=== PATIENT | female | born 1970 | race American Indian/Alaskan Native ===

== ENCOUNTER 2018-09-20 14:15 | Outpatient (CLI) | payer MEDICAID, OTHER | END 2018-09-20 14:16 | disposition home or self-care (01) | LOC: LABHHL 14:15 | PROVIDERS: ATTEND Surgery | DX: N64.1 Fat necrosis of breast (principal); C49.9 Malignant neoplasm of connective and soft tissue, unspecified; D48.7 Neoplasm of uncertain behavior of other specified sites | CPT/HCPCS: 88305; 88341; 88342 ==

== ENCOUNTER 2019-01-29 09:12 | Inpatient (IN) | payer MEDICAID, OTHER ==
[~2019-01-29 09:12] MED LIST: ANCEF/STERILE WATER 2 GM/20 ML 2 GM/20 ML SYRINGE IV NR; NACL 0.9% 500 ML 500 ML IV NR
[2019-01-29] MEDS ORDERED: SUBLIMAZE IV ONE ×2 (10:46→14:01)
--- NOTE | 2019-01-29 10:46 | Anesthesia Day of Surgery ---
Anesthesia Day of Surgery - Day of Surgery Patient Examined: Yes Patient H&P Reviewed: Yes Patient is NPO: Yes
--- NOTE | 2019-01-29 10:46 | Anesthesia Consultation ---
Anesthesia Consult and Med Hx Date of service: 01/29/19 - Airway Anesthetic Teeth Evaluation: Good ROM Head & Neck: Adequate Mental/Hyoid Distance: Adequate Mallampati Class: Class II Intubation Access Assessment: Good - Pulmonary Exam CTA: Yes - Cardiac Exam Cardiac Exam: RRR - Pre-Operative Health Status ASA Pre-Surgery Classification: ASA4 Proposed Anesthetic Plan: General (Breast Cancer with erosion through anterior chest wall muscles , for GA) - Pulmonary Hx Sleep Apnea: (HIGH RISK) - Cardiovascular System Hx Hypertension: Yes (06/2017) - Central Nervous System Hx Psychiatric Problems: No - Other Systems Hx Alcohol Use: No Hx Substance Use: No Hx Cancer: Yes Hx Obesity: Yes
[2019-01-29] MEDS ORDERED: ZOFRAN IV PRN ×2 (10:47→18:59)
[2019-01-29] MEDS ORDERED: DILAUDID IV PRN (10:47)
[2019-01-29] MEDS: LACTATED RINGERS 1,000 ML IV SCH ×2 (11:30→21:34)
[2019-01-29] MEDS ORDERED: VANCOMYCIN 1,500 MG in NACL 0.9% 500 ML 500 ML IV NR (12:00)
[2019-01-29 12:45] LABS: Hematocrit 28.9 % (30.3-42.9); Hemoglobin 9.4 gm/dl (10.1-14.3)
[2019-01-29] MEDS ORDERED: SUBLIMAZE IV PRN (14:05)
--- NOTE | 2019-01-29 14:44 | Operative Report ---
Operative Report Operative Report: Operative Report: Date of Service: December 30, 2018 Preoperative diagnosis: Right breast cancer of the upper outer quadrant and bilateral breast papillomas Postoperative diagnosis: Same Procedure: Right total mastectomy with sentinel lymph node biopsy and left total mastectomy Surgeon: Marina Self M.D. Interactive Designer: Caroline Singletary M.D. Anesthesia: Gen. Findings: Right breast clips x3 present within right total mastectomy and left total mastectomy clips x3, x1 right SLN and negative for malignancy Complications: None Drains: per plastic surgery Estimated blood loss: 100-150 cc Disposition: in OR for bilateral tissue event operations manager placement by plastic surgery Indications for operative procedure: This is a 49-year-old lady with newly diagnosed right breast cancer of the upper outer quadrant IDCA grade 1 [id number] ER positive and multiple bilateral breast papillomas. Recent right stereotactic biopsy recently performed with findings of invasive carcinoma. 2 left breast and 2 right breast biopsies performed as well with findings of papillomas and breast MRI with too numerous to count bilateral breast masses probable for papillomas. She had a prior left breast excisional biopsy performed by Dr. Chatman with over 30 papillomas excised. Recommendations were to proceed with a bilateral mastectomy given right breast cancer and both breast with too numerous to count papillomas- papillomas with increase breast cancer risk. Other option of right partial mastectomy with SLNB and close surveillance was discussed as well and she wished to proceed with a bilateral mastectomy and immediate bilateral tissue event operations manager placement. She met with medical oncology and radiation oncology prior to surgery as well with recommendations of proceeding with a bilateral mastectomy. She declined genetic testing. She wished to proceed with the above procedure. Procedure in detail: Anesthesia placed bilateral pectoral muscle block prior to going to the operating room. The patient was taken to the operating room and was placed supine. Gen. anesthesia was administered. The right nipple was injected with radioisotope. Bilateral breast and axilla were prepped and draped in the normal sterile operative fashion. Timeout was performed. Typical mastectomy incision marking were made. Attention was then taken towards the left breast. A skin incision was made with a 10 blade knife and dissection taken down to the subcutaneous tissues. First began raising of the superior flap to the level of the clavicle and posteriorly to the pectoralis muscle. Then proceeded with raising of the medial flap to the level of the sternum and posteriorly to the pectoralis muscle. Followed by raisi ng of the lateral flap to the level of the latissimus dorsi muscle and taken down posteriorly. Then proceeded with raising of the inferior flap to the level of the inframammary fold taken posterior to the pectoralis muscle. The mastectomy/breast was removed from the pectoralis muscle without incident. The specimen was appropriately marked and sent to radiology with findings of 2 breast clips present and sent to pathology. Hemostasis was noted. The chest wall was irrigated and suctioned. Hemostasis was obtained. Attention was then taken towards the right breast. A gamma probe was inserted into the axilla to identify the sentinel lymph node location with uptake present. A skin incision was made with a 10 blade knife and dissection taken down to the subcutaneous tissues. First began raising of the superior flap to the level of the clavicle and posteriorly to the pectoralis muscle. Then proceeded with raising of the medial flap to the level of the sternum and posteriorly to the pectoralis muscle. Followed by raising of the lateral flap to the level of the latissimus dorsi muscle and taken down posteriorly. The gamma probe was inserted into the axilla. The axillary fascia was opened and 1 SLN was identified and then sent to pathology. All remaining counts were less than 10% of the highest count. Then proceeded with raising of the inferior flap to the level of the inframammary fold taken posterior to the pectoralis muscle. The mastectomy/breast was removed from the pectoralis muscle without incident. The specimen was appropriately marked and sent to radiology with findings of 3 breast clips present and sent to pathology. Hemostasis was noted. The chest wall was irrigated and suctioned. Hemostasis was obtained. She tolerated surgery very well and plastic surgery then proceeded with bilateral tissue event operations manager placement.
[2019-01-29] MEDS ORDERED: XYLOCAINE MPF 2% ONE (15:34)
[2019-01-29] MEDS ORDERED: ROBINUL ONE (15:34)
[2019-01-29] MEDS ORDERED: BLOXIVERZ ONE (15:34)
[2019-01-29] MEDS ORDERED: PHENYLEPHRINE/NS Syringe 1,000 MCG/10 ML IV ONE (15:34)
[2019-01-29] MEDS ORDERED: QUELICIN ONE (15:34)
[2019-01-29] MEDS ORDERED: ZEMURON IV ONE (15:34)
[2019-01-29] MEDS ORDERED: ZOFRAN ONE (15:34)
[2019-01-29] MEDS ORDERED: DECADRON ONE (15:34)
[2019-01-29] MEDS ORDERED: DILAUDID ONE ×3 (15:45→19:46)
[2019-01-29] MEDS ORDERED: XYLOCAINE 1% 20 mL ONE (16:14)
[2019-01-29] MEDS ORDERED: METHYLENE BLUE ONE (16:14)
[2019-01-29] MEDS ORDERED: MARCAINE 0.25% INFILTRATI ONE (16:14)
[2019-01-29] MEDS ORDERED: DIPRIVAN 10 MG/ML IV ONE (16:30)
[2019-01-29] MEDS ORDERED: SUBLIMAZE ONE (16:30)
[2019-01-29] MEDS ORDERED: NACL P/F VIAL (10 ML) 0 ML ONE (17:03)
[2019-01-29] MEDS ORDERED: CLORPACTIN WCS-90 IR ONE ×2 (17:03→17:51)
[2019-01-29] MEDS ORDERED: SODIUM CHLORIDE FLUSH SYRINGE 10 ML IV PRN (18:59)
[2019-01-29] MEDS ORDERED: BENADRYL PO PRN (18:59)
[2019-01-29] MEDS ORDERED: REGLAN PO PRN (18:59)
[2019-01-29] MEDS ORDERED: LACTATED RINGERS 1,000 ML IV SCH (19:00)
--- NOTE | 2019-01-29 19:25 | Operative Report ---
Operative Report Operative Report: Operative Report: Date of Service: December 30, 2018 Preoperative diagnosis: Left breast cancer of the overlapping areas-majority of entire breast Postoperative diagnosis: Same Procedure: Left toilet mastectomy Surgeon: Marina Self M.D. Assessment Services Manager: Caroline Singletary M.D. Anesthesia: Gen. Findings: Left toilet mastectomy of ulcerated breast of the nearly the entire breast; chest wall defect 30x16 cm Complications: None Drains: Wound Vac Estimated blood loss: 100 cc Disposition: in OR for Wound Vac placement by plastic surgery Indications for operative procedure: This is a 49-year-old lady with recurrent advanced Stage IV left breast cancer, [id number] triple negative. She was diagosed with left breast cancer initially and underwent neoadjuvant chemotherapy followed by left partial mastectomy and delayed adjuvant whole breast radiation in March 2018. Patient recently reoccurred with advance stage findings on physical exam with tumor nearly encompassing the entire breast. She was started on a [place] based chemotherapy with gemcitabine with advanced in her cancer. She was then started on Irbulin and recommendations for radiation therapy and she declined. Given advanced left breast skin changes of ulceration and necrosis of nearly the entire breast, recommendations were for a toilet mastectomy for pain control. She understand this was not curative. Plastics was consulted and they recommended placing a wound VAC with delayed skin graft after area has granulated well. Necrotic ulcerated breast cancer mass over 20 cm. The above was discussed at cancer conference as well with agreement of the above. She wished to proceed with the above procedure. Procedure in detail: The patient was taken to the operating room and was placed supine. Gen. anesthesia was administered. Bilateral breast and axilla were prepped and draped in the normal sterile operative fashion. Timeout was performed. Mastectomy skin markings were made to encomplass the entire breast and the immediate medial aspect of the right to the clavicle superiorly, below the IMF and laterally to the latissmus dorsi given the involvement of skin with ulceration and satellite skin lesions. Attention was then taken towards the left breast. A skin incision was made using the bovie cautery with dissection taken down to the subcutaneous tissues. First began raising of the superior flap to the level of the clavicle and posteriorly to the pectoralis muscle. Then proceeded with raising of the medial flap to the level of the sternum towards the medial aspect of the right breast and posteriorly to the pectoralis muscle. Followed by raising of the lateral flap to the level of the latissimus dorsi muscle and taken down posteriorly. Then proceeded with raising of the inferior flap to the level below the inframammary fold taken posterior immediatedly inferior to the pectoralis muscle. The mastectomy/breast was removed from the pectoralis muscle with some muslce removed en bloc with the mastectomy given adherence of tumor to the muscle. Periosteum was not visible and was covered by muscle. The muscles and tissues were noted to be edematous. Superior towards the axillary tail a fixed mass was present that was dissected from the pectoralis muscle with muscle removed as well. An enlarged left axillary lymph node was present that was resected as well. Chest wall cavity defect was 30x16 cm.The specimen was appropriately marked and sent to radiology. Chest wall was pulsavac with antibiotic solution. Hemostasis was obtained. She tolerated surgery very well and plastic surgery then proceeded with wound vac placement.
--- NOTE | 2019-01-29 19:49 | Operative Report ---
Operative Report Operative Report: Plastic Surgery Operative Note Preoperative Diagnosis: Left breast malignant neoplasm; open wound of the left chest s/p Left toilet mastectomy of ulcerated breast of the nearly the entire breast; chest wall defect 30x16 cm Postoperative Diagnosis: Same Procedure: Preparation of wound bed 30x16 cm (480 sq cm) and Application of VAC dressing Anesthesia: General endotracheal Surgeon: Dr. Sharon Merida Viscose Department Worker: None Specimens: None EBL: Minimal Indications: Patient is a 49-year-old -[place] female with history of left breast cancer that has progressed despite treatment to include the majority of skin of the left chest. She has recently been found to have lung nodule on PET scan. Due to the amount of pain she is currently in, she will undergo mastectomy with the plan for future split-thickness skin grafting to close her wound. 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 Patient understands and accepts these risks and desired to proceed with surgery Informed consent was obtained. Procedure: After review of pertinent history and physical exam, the patient was brought to the operating room and placed supine on the OR table. After induction of adequate general endotracheal anesthesia, the patient was placed in the supine position and the buttocks was prepped with Betadine and draped in the usual sterile surgical fashion. The mastectomy, which was performed by Dr. Marina Self, is dictated under a separate note. Once the mastectomy was completed a left chest defect measuring 30x 16 cm was left behind. The wound bed, which had pectoralis minor and remnants of pectoralis major as well as serratus anterior muscles exposed and viable/intact was checked for hemostasis. Pulse lavage was performed with 3 liters of saline solution. The outer edges of the defect near the inframamary fold were sutured down to decrease the inferior extent of the wound and then we began placement of the VAC dressing. 3 Medium Granufoam sponges were cut and placed in the wound bed and secured with rio. The foam was then covered with adhesive. The dressing was then placed to [facility], [place] suction, and noted to have no leaks at 125 mmHg continuous suction. Patient was then placed in a surgical bra and awakened from anesthesia after which she was transferred to a stretcher. She was then transferred to the recovery room in stable condition. Patient tolerated the procedure well. There were no complications. All sponge needle and instrument counts were correct at the end of the case.
[2019-01-29] MEDS: COLACE PO SCH (21:35)
--- NOTE | 2019-01-29 23:34 | Post Anesthesia Evaluation ---
- Post Anesthesia Evaluation Patient Participated: Yes Airway Patent: Yes Stable Respiratory Function: Yes Nausea/Vomiting: No Temp > 96.8F: Yes Pain Manageable: Yes Adequeate Hydration: Yes Anesthesia Complications: No Block Receding Appropriately: Not Applicable Patient on Ventilator: No
[2019-01-29] MEDS: PERCOCET 5/325 PO PRN (23:58)
[2019-01-30] MEDS: LACTATED RINGERS 1,000 ML IV SCH (05:50)
[2019-01-30] MEDS: PERCOCET 5/325 PO PRN ×3 (07:51→21:16)
--- NOTE | 2019-01-30 09:38 | Progress Note ---
Subjective Date of service: 01/30/19 Principal diagnosis: Open wound of the left chest s/p toilet mastectomy of ulcerated left BR CA Interval history: Surgery progress note Patient is awake out of bed in the chair eating breakfast and in good spirits. She reports being much more comfortable than preoperatively. She has some soreness, but is overall feeling good. She reports voiding spontaneously this morning, denies nausea, denies fever or chills. Pain is well controlled with by mouth medications. Afebrile vital signs stable The VAC output serosanguineous Left chest VAC dressing intact, no leaks, good seal, serosanguineous drainage collecting with minimal output. No surrounding erythema evidence of infection. No seroma or hematoma collection underneath dressing. Assessment: Postoperative day #1 status post left breast toilet mastectomy for ulcerated breast cancer, closed with vac dressing. Consultation from wound care nursing placed last night. Followed up this morning, patient to be evaluated by wound care nurse at bedside for set up for home VAC. Once home VAC is available, patient is appropriate for discharge home. She has an appointment for wound care clinic next week as well as follow-up appointment for me in office. Objective - Constitutional Vitals: Vital Signs - 12hr 01/30/19 01/30/19 01:16 04:43 Temperature 98.1 F Pulse Rate 112 H 104 H Respiratory 20 Rate Blood Pressure 93/60 114/65 O2 Sat by Pulse 97 98 Oximetry - Labs CBC & Chem 7: 01/29/19 11:25 Labs: Abnormal lab results 01/29/19 01/29/19 Range/Units 11:25 11:25 Hgb 9.4 L (10.1-14.3) gm/dl Hct 28.9 L (30.3-42.9) % Crossmatch See Detail Medications & Allergies - Medications Allergies/Adverse Reactions: Allergies aspirin Adverse Reaction (Verified 01/28/19 12:25) GI Upset Home Medications: Home Medications Medication Instructions Recorded Confirmed Last Taken Type Cholecalciferol Vit D3 [Vitamin D3 1,000 unit PO QDAY 01/27/19 01/27/19 01/28/19 12:00 History 1,000 UNIT TAB] Clindamycin [Clindamycin CAP] 300 mg PO Q8H 01/27/19 01/27/19 01/28/19 12:00 History Cyanocobalamin [Vitamin B-12] 1,000 mcg PO DAILY 01/27/19 01/27/19 01/28/19 12:00 History HYDROcodone/APAP 10-325 [[place] 1 tab PO TID PRN 01/27/19 01/27/19 01/29/19 08:00 History 10-325 mg TAB] Ibuprofen [Motrin] 800 mg PO Q8HR PRN 01/27/19 01/27/19 Unknown History Iron [Iron 18 MG TAB] 18 mg PO Q48H 01/27/19 01/27/19 01/28/19 12:00 History Multivitamin/Iron/Folic Acid 1 each PO DAILY 01/27/19 01/27/19 01/28/19 12:00 History [Centrum Adults Tablet] amLODIPine [Norvasc] 5 mg PO DAILY 01/27/19 01/27/19 01/29/19 08:00 History Active Medications: Generic Name Dose Route Start Last Admin Trade Name Freq PRN Reason Stop Dose Admin Acetaminophen 650 mg 01/29/19 18:59 Tylenol PO Q6H PRN Pain MILD(1-3)/Fever >100.5/RAMACHANDRAN Diphenhydramine HCl 25 mg 01/29/19 18:59 Benadryl PO Q8H PRN Itching Docusate Sodium 100 mg 01/29/19 22:00 01/29/19 21:35 Colace PO 100 mg BID MANISH Administration Enoxaparin Sodium 40 mg 01/30/19 10:00 Lovenox SUB-Q QDAY MANISH Fentanyl 100 mcg 01/29/19 14:05 Sublimaze IV ONCE PRN Chest Pain unrelieved by NTG Lactated Ringer's 1,000 mls @ 100 mls/hr 01/29/19 11:00 01/30/19 05:50 Lactated Ringers IV 100 mls/hr DIRECT MANISH Administration Lactated Ringer's 1,000 mls @ 125 mls/hr 01/29/19 19:00 Lactated Ringers IV DIRECT MANISH Metoclopramide HCl 10 mg 01/29/19 18:59 Reglan PO Q6H PRN Nausea And Vomiting Morphine Sulfate 2 mg 01/29/19 19:03 Morphine IV Q4H PRN Pain, Moderate (4-6) Ondansetron HCl 4 mg 01/29/19 10:47 Zofran IV ONCE PRN Nausea And Vomiting Ondansetron HCl 4 mg 01/29/19 18:59 Zofran IV Q8H PRN N/V unrelieved by Sherry Oxycodone/Acetaminophen 2 tab 01/29/19 18:59 01/30/19 07:51 Percocet 5/325 PO 2 tab Q6H PRN Administration Pain, Moderate (4-6) Sodium Chloride 10 ml 01/29/19 18:59 Sodium Chloride Flush Syringe 10 Ml IV PRN PRN LINE FLUSH
[2019-01-30] MEDS: TYLENOL PO PRN (10:40)
[2019-01-30] MEDS: COLACE PO SCH ×2 (10:40→21:15)
[2019-01-30] MEDS: LOVENOX SUB-Q SCH (10:42)
[2019-01-31] MEDS: PERCOCET 5/325 PO PRN ×4 (03:05→22:39)
[2019-01-31] MEDS: LOVENOX SUB-Q SCH (10:33)
[2019-01-31] MEDS: COLACE PO SCH (10:33)
[2019-02-01] MEDS: PERCOCET 5/325 PO PRN ×3 (04:25→19:35)
[2019-02-01] MEDS: MORPHINE IV PRN (09:08)
[2019-02-01] MEDS: LOVENOX SUB-Q SCH (10:32)
[2019-02-01] MEDS: COLACE PO SCH ×2 (10:32→19:36)
--- NOTE | 2019-02-01 15:03 | Progress Note ---
Subjective Date of service: 02/01/19 Principal diagnosis: Open wound of the left chest s/p toilet mastectomy of ulcerated left BR CA Interval history: Plastic Surgery Progress Note Patient doing well, POD #3. She denies fever, chills, cp, sob. Her pain is controlled with the medications she has ordered. Her only concern is that she has not yet had a bowel movement. Denies n/v. Her brought her some grapes and bananas to eat but she has not had them yet. Overall in good spirits . AFVSS Left chest VAC intact to suction, serosanguinous output. No evidence of infection or fluid collection, good seal. Plan: 1. Will add Colace TID to encourage BM. Patient encouraged to drink more water and eat the fruits her brought. She was also advised to ambulate more as this will help with bowel motility. If no BM after these measures, administer Magnesium Citrate. 2. Case mgmt: Home VAC approval pending. Discharge held for home VAC approval. 3. WOC Nursing: VAC dressing change at bedside w or Sunday. Objective - Constitutional Vitals: Vital Signs - 12hr 02/01/19 02/01/19 02/01/19 04:00 04:25 07:55 Temperature 99.3 F 99.0 F Pulse Rate 70 110 H Respiratory 18 18 18 Rate Blood Pressure 145/77 Blood Pressure 118/74 [Right] O2 Sat by Pulse 97 Oximetry 02/01/19 02/01/19 12:59 13:34 Temperature 98.9 F Pulse Rate 127 H Respiratory 18 18 Rate Blood Pressure 131/83 Blood Pressure [Right] O2 Sat by Pulse 94 Oximetry - Labs CBC & Chem 7: 01/29/19 11:25 Medications & Allergies - Medications Allergies/Adverse Reactions: Allergies aspirin Adverse Reaction (Verified 01/28/19 12:25) GI Upset Home Medications: Home Medications Medication Instructions Recorded Confirmed Last Taken Type Cholecalciferol Vit D3 [Vitamin D3 1,000 unit PO QDAY 01/27/19 01/27/19 01/28/19 12:00 History 1,000 UNIT TAB] Clindamycin [Clindamycin CAP] 300 mg PO Q8H 01/27/19 01/27/19 01/28/19 12:00 History Cyanocobalamin [Vitamin B-12] 1,000 mcg PO DAILY 01/27/19 01/27/19 01/28/19 12:00 History HYDROcodone/APAP 10-325 [[place] 1 tab PO TID PRN 01/27/19 01/27/19 01/29/19 08:00 History 10-325 mg TAB] Ibuprofen [Motrin] 800 mg PO Q8HR PRN 01/27/19 01/27/19 Unknown History Iron [Iron 18 MG TAB] 18 mg PO Q48H 01/27/19 01/27/19 01/28/19 12:00 History Multivitamin/Iron/Folic Acid 1 each PO DAILY 01/27/19 01/27/19 01/28/19 12:00 History [Centrum Adults Tablet] amLODIPine [Norvasc] 5 mg PO DAILY 01/27/19 01/27/19 01/29/19 08:00 History Active Medications: Generic Name Dose Route Start Last Admin Trade Name Freq PRN Reason Stop Dose Admin Acetaminophen 650 mg 01/29/19 18:59 01/30/19 10:40 Tylenol PO 650 mg Q6H PRN Administration Pain MILD(1-3)/Fever >100.5/RAMACHANDRAN Diphenhydramine HCl 25 mg 01/29/19 18:59 Benadryl PO Q8H PRN Itching Docusate Sodium 100 mg 01/29/19 22:00 02/01/19 10:32 Colace PO 100 mg BID MANISH Administration Enoxaparin Sodium 40 mg 01/30/19 10:00 02/01/19 10:32 Lovenox SUB-Q 40 mg QDAY MANISH Administration Fentanyl 100 mcg 01/29/19 14:05 Sublimaze IV ONCE PRN Chest Pain unrelieved by NTG Lactated Ringer's 1,000 mls @ 125 mls/hr 01/29/19 19:00 Lactated Ringers IV DIRECT MANISH Metoclopramide HCl 10 mg 01/29/19 18:59 Reglan PO Q6H PRN Nausea And Vomiting Morphine Sulfate 2 mg 01/29/19 19:03 02/01/19 09:08 Morphine IV 2 mg Q4H PRN Administration Pain, Moderate (4-6) Ondansetron HCl 4 mg 01/29/19 18:59 Zofran IV Q8H PRN N/V unrelieved by Reglan Oxycodone/Acetaminophen 2 tab 01/29/19 18:59 02/01/19 13:34 Percocet 5/325 PO 2 tab Q6H PRN Administration Pain, Moderate (4-6) Sodium Chloride 10 ml 01/29/19 18:59 Sodium Chloride Flush Syringe 10 Ml IV PRN PRN LINE FLUSH
[2019-02-01] MEDS ORDERED: CITRATE OF MAGNESIA PO PRN (15:07)
[2019-02-02] MEDS: PERCOCET 5/325 PO PRN ×4 (01:22→20:45)
[2019-02-02 09:17] LABS: Basophils # (Auto) 0.1 K/mm3 (0.0-0.1); Basophils % (Auto) 0.4 % (0.0-1.8); Eosinophils # (Auto) 0.1 K/mm3 (0.0-0.4); Eosinophils % (Auto) 0.4 % (0.0-4.3); Hematocrit 26.6 % (30.3-42.9); Hemoglobin 8.6 gm/dl (10.1-14.3); Lymphocytes # (Auto) 1.3 K/mm3 (1.2-5.4); Lymphocytes % (Auto) 10.2 % (13.4-35.0); Mean Corpuscular HGB Conc 32 % (30-34); Mean Corpuscular Volume 85 fl (79-97); Monocytes # (Auto) 1.5 K/mm3 (0.0-0.8); Monocytes % (Auto) 11.6 % (0.0-7.3); Platelet Count 557 K/mm3 (140-440); Red Blood Count 3.14 M/mm3 (3.65-5.03)
[2019-02-02 09:18] LABS: Red Cell Distribution Width 21.9 % (13.2-15.2)
[2019-02-02 09:31] LABS: BUN/Creatinine Ratio 20; Blood Urea Nitrogen 10 mg/dL (7-17); Calcium 8.7 mg/dL (8.4-10.2); Hemolysis Index 0
[2019-02-02 09:36] LABS: Creatine Kinase MB 1.2 ng/mL (0.0-4.0)
[2019-02-02] MEDS: COLACE PO SCH ×3 (09:39→20:44)
[2019-02-02] MEDS: LOVENOX SUB-Q SCH (09:39)
[2019-02-02] MEDS: NORVASC PO SCH (09:39)
--- NOTE | 2019-02-02 09:45 | Vascular Lab Report ---
DUPLEX DOPPLER LOWER EXTREMITY VEINS, BILATERAL INDICATION / CLINICAL INFORMATION: rule out DVT. Breast cancer. TECHNIQUE: Duplex doppler imaging was performed through the veins of both lower extremities using venous neo lupe and other maneuvers. COMPARISON: None available. FINDINGS: RIGHT COMMON FEMORAL VEIN: Negative. RIGHT FEMORAL VEIN: Negative. RIGHT POPLITEAL VEIN: Negative. RIGHT CALF VEINS: Negative. LEFT COMMON FEMORAL VEIN: Negative. LEFT FEMORAL VEIN: Negative. LEFT POPLITEAL VEIN: Negative. LEFT CALF VEINS: Negative. ADDITIONAL FINDINGS: None. IMPRESSION: 1. No sonographic evidence for DVT in either lower extremity. Signer Name: Rosanna Eason MD Signed: 02/02/2019 9:41 AM Workstation Name: [id number]
[2019-02-02] MEDS ORDERED: MAGNESIUM SULFATE 2GM/50ML 2 GM/50 ML BAG IV ONE ×2 (12:26→18:48)
--- NOTE | 2019-02-02 12:35 | Progress Note ---
Assessment and Plan This is a 49 year old lady with Stage IV left breast cancer, POD #4 left toilet mastectomy for chest wall/breast extensive necrosis with ulceration with mastectomy performed of 30x16 cm and wound vac placed. 1. Patient with tachycardia this morning, cardiac enzymes obtained and negative, CBC stable and minimal blood loss of less than 100 cc during surgery, EKG with sinus tachycardia, bilateral lower ext ultrasound negative for DVT and Chem 9 with low magnesium and IV replacement ordered. Personally consulted Dr. Arriaga this afternoon for evaluation-->will await recommendations and thank you. 2. Left chest wall wound vac in place and will have changed tomorrow by wound care. Patient awaiting home wound vac for delivery by her insurance, d/c planning for tomorrow. 3. OOB to hallway. 4. Patient eating well and no PO concerns. 5. Resumed home meds today. Subjective Date of service: 02/02/19 Principal diagnosis: Open wound of the left chest s/p toilet mastectomy of ulcerated left BR CA Interval history: No acute events overnight. Patient awaiting wound vac insurance approval. Objective - Constitutional Vitals: Vital Signs - 12hr 02/02/19 02/02/19 02/02/19 01:22 05:02 07:43 Temperature 98.9 F 99.5 F Pulse Rate 120 H 124 H Pulse Rate [ Apical] Respiratory 18 18 18 Rate Blood Pressure 110/62 Blood Pressure 134/78 [Right] O2 Sat by Pulse 95 Oximetry 02/02/19 02/02/19 02/02/19 08:05 09:39 10:32 Temperature Pulse Rate 120 H Pulse Rate [ 122 H Apical] Respiratory 18 Rate Blood Pressure 160/94 Blood Pressure [Right] O2 Sat by Pulse Oximetry 02/02/19 10:34 Temperature Pulse Rate 122 H Pulse Rate [ Apical] Respiratory Rate Blood Pressure Blood Pressure [Right] O2 Sat by Pulse 95 Oximetry General appearance: Present: no acute distress - EENT Eyes: PERRL, EOM intact ENT: hearing intact, clear oral mucosa Ears: bilateral: normal - Neck Neck: supple, normal ROM - Respiratory Respiratory effort: normal Respiratory: bilateral: CTA - Breasts Breasts: other (left wound vac in place to suction) - Cardiovascular Rhythm: regular Extremities: no ischemia, pulses intact, pulses symmetrical, No edema, normal temperature, normal color, Full ROM - Gastrointestinal General gastrointestinal: Present: soft, non-tender, non-distended Rectal Exam: deferred - Genitourinary Female genitourinary: deferred - Integumentary Integumentary: clear, warm, dry - Musculoskeletal Musculoskeletal: strength equal bilaterally - Neurologic Neurologic: CNII-XII intact, moves all extremities - Psychiatric Psychiatric: appropriate mood/affect, intact judgment & insight, memory intact, cooperative - Labs CBC & Chem 7: 02/02/19 08:48 02/02/19 08:48 Labs: Abnormal lab results 01/29/19 02/02/19 02/02/19 Range/Units 11:25 08:48 08:48 WBC 12.9 H (4.5-11.0) K/mm3 RBC 3.14 L (3.65-5.03) M/mm3 Hgb 8.6 L (10.1-14.3) gm/dl Hct 26.6 L (30.3-42.9) % MCH 27 L (28-32) pg RDW 21.9 H (13.2-15.2) % Plt Count 557 H (140-440) K/mm3 Lymph % (Auto) 10.2 L (13.4-35.0) % [place] % (Auto) 11.6 H (0.0-7.3) % [place] # 1.5 H (0.0-0.8) K/mm3 Seg Neutrophils % 77.4 H (40.0-70.0) % Seg Neutrophils # 10.0 H (1.8-7.7) K/mm3 Creatinine 0.5 L (0.7-1.2) mg/dL Glucose 137 H (65-100) mg/dL Magnesium (1.7-2.3) mg/dL Crossmatch See Detail 02/02/19 Range/Units 08:48 WBC (4.5-11.0) K/mm3 RBC (3.65-5.03) M/mm3 Hgb (10.1-14.3) gm/dl Hct (30.3-42.9) % MCH (28-32) pg RDW (13.2-15.2) % Plt Count (140-440) K/mm3 Lymph % (Auto) (13.4-35.0) % [place] % (Auto) (0.0-7.3) % [place] # (0.0-0.8) K/mm3 Seg Neutrophils % (40.0-70.0) % Seg Neutrophils # (1.8-7.7) K/mm3 Creatinine (0.7-1.2) mg/dL Glucose (65-100) mg/dL Magnesium 0.20 L* (1.7-2.3) mg/dL Crossmatch Medications & Allergies - Medications Allergies/Adverse Reactions: Allergies aspirin Adverse Reaction (Verified 01/28/19 12:25) GI Upset Home Medications: Home Medications Medication Instructions Recorded Confirmed Last Taken Type Cholecalciferol Vit D3 [Vitamin D3 1,000 unit PO QDAY 01/27/19 01/27/19 01/28/19 12:00 History 1,000 UNIT TAB] Clindamycin [Clindamycin CAP] 300 mg PO Q8H 01/27/19 01/27/19 01/28/19 12:00 History Cyanocobalamin [Vitamin B-12] 1,000 mcg PO DAILY 01/27/19 01/27/19 01/28/19 12:00 History HYDROcodone/APAP 10-325 [[place] 1 tab PO TID PRN 01/27/19 01/27/19 01/29/19 08:00 History 10-325 mg TAB] Ibuprofen [Motrin] 800 mg PO Q8HR PRN 01/27/19 01/27/19 Unknown History Iron [Iron 18 MG TAB] 18 mg PO Q48H 01/27/19 01/27/19 01/28/19 12:00 History Multivitamin/Iron/Folic Acid 1 each PO DAILY 01/27/19 01/27/19 01/28/19 12:00 History [Centrum Adults Tablet] amLODIPine [Norvasc] 5 mg PO DAILY 01/27/19 01/27/19 01/29/19 08:00 History Active Medications: Generic Name Dose Route Start Last Admin Trade Name Freq PRN Reason Stop Dose Admin Acetaminophen 650 mg 01/29/19 18:59 01/30/19 10:40 Tylenol PO 650 mg Q6H PRN Administration Pain MILD(1-3)/Fever >100.5/RAMACHANDRAN Amlodipine Besylate 5 mg 02/02/19 10:00 02/02/19 09:39 Norvasc PO 5 mg QDAY MANISH Administration Diphenhydramine HCl 25 mg 01/29/19 18:59 Benadryl PO Q8H PRN Itching Docusate Sodium 100 mg 02/01/19 20:00 02/02/19 09:39 Colace PO 100 mg TID MANISH Administration Enoxaparin Sodium 40 mg 01/30/19 10:00 02/02/19 09:39 Lovenox SUB-Q 40 mg QDAY MANISH Administration Fentanyl 100 mcg 01/29/19 14:05 Sublimaze IV ONCE PRN Chest Pain unrelieved by NTG Lactated Ringer's 1,000 mls @ 125 mls/hr 01/29/19 19:00 Lactated Ringers IV DIRECT MANISH Magnesium Sulfate 2 gm in 50 mls @ 25 mls/hr 02/02/19 12:26 Magnesium Sulfate 2gm/50ml IV 02/02/19 14:25 ONCE ONE Magnesium Citrate 300 ml 02/01/19 15:07 Citrate Of Magnesia PO QDAY PRN Bowel Movement Metoclopramide HCl 10 mg 01/29/19 18:59 Reglan PO Q6H PRN Nausea And Vomiting Morphine Sulfate 2 mg 01/29/19 19:03 02/01/19 09:08 Morphine IV 2 mg Q4H PRN Administration Pain, Moderate (4-6) Ondansetron HCl 4 mg 01/29/19 18:59 Zofran IV Q8H PRN N/V unrelieved by Reglan Oxycodone/Acetaminophen 2 tab 01/29/19 18:59 02/02/19 01:22 Percocet 5/325 PO 2 tab Q6H PRN Administration Pain, Moderate (4-6) Oxycodone/Acetaminophen 2 tab 02/02/19 07:56 02/02/19 09:38 Percocet 5/325 PO 2 tab Q4H PRN Administration Pain, Moderate (4-6) Sodium Chloride 10 ml 01/29/19 18:59 Sodium Chloride Flush Syringe 10 Ml IV PRN PRN LINE FLUSH
[2019-02-02] MEDS ORDERED: MAG-OX PO ONE ×2 (13:00)
[2019-02-02] MEDS ORDERED: NACL 0.9% 1000 ML 1,000 ML ONE (15:14)
[2019-02-02] MEDS: TYLENOL PO PRN (18:08)
[2019-02-02] MEDS ORDERED: NACL 0.9% 1000 ML 1,000 ML IV ONE (18:49)
[2019-02-02] MEDS ORDERED: NACL 0.9% 1000 ML 1,000 ML IV SCH (19:00)
[2019-02-02 20:12] LABS: Basophils # (Auto) 0.1 K/mm3 (0.0-0.1); Basophils % (Auto) 0.7 % (0.0-1.8); Eosinophils # (Auto) 0.1 K/mm3 (0.0-0.4); Eosinophils % (Auto) 0.5 % (0.0-4.3); Hematocrit 24.8 % (30.3-42.9); Lymphocytes # (Auto) 1.4 K/mm3 (1.2-5.4); Lymphocytes % (Auto) 11.7 % (13.4-35.0); Mean Corpuscular HGB Conc 32 % (30-34); Mean Corpuscular Volume 85 fl (79-97); Monocytes # (Auto) 1.8 K/mm3 (0.0-0.8); Monocytes % (Auto) 14.9 % (0.0-7.3); Platelet Count 530 K/mm3 (140-440); Red Blood Count 2.93 M/mm3 (3.65-5.03)
[2019-02-02 20:13] LABS: Red Cell Distribution Width 21.9 % (13.2-15.2)
[2019-02-02 20:30] LABS: Alanine Aminotransferase 18 units/L (7-56); Albumin 2.1 g/dL (3.9-5); BUN/Creatinine Ratio 18; Blood Urea Nitrogen 11 mg/dL (7-17); Calcium 8.1 mg/dL (8.4-10.2); Hemolysis Index 1
--- NOTE | 2019-02-02 23:20 | Cat Scan Report ---
CT angio chest INDICATION / CLINICAL INFORMATION: Dyspnea. TECHNIQUE: Precontrast bolus timing images were obtained followed by postcontrast axial and reformatted images. 3-plane MIP reconstructions were performed at an independent workstation by the technologist. All CT scans at this location are performed using CT dose reduction for ALARA by means of automated exposure control. COMPARISON: None available. FINDINGS: Pulmonary arterial enhancement is normal, no evidence of pulmonary embolus. There is a large left and small right pleural effusion. Compressive atelectasis of the left lower lob e is noted. Diffuse pulmonary nodularity is consistent with metastatic disease. No superimposed airspace consolidation. Post left mastectomy changes. There are enlarged right axillary and left internal mammary Limited upper abdominal images show normal adrenal glands and cholelithiasis. There are sclerotic changes of the sternum. Hypertrophic ventral spurring is seen in multiple lower thoracic vertebral bodies. Lymph nodes. IMPRESSION: 1. No evidence of acute pulmonary embolism. 2. Bilateral pleural effusions larger on the left. 3. Post left mastectomy with pulmonary metastatic disease, right axillary and left internal mammary a denopathy. 4. Cholelithiasis. Signer Name: Abimael Mcgowan MD Signed: 02/02/2019 11:15 PM Workstation Name: [id number]
[2019-02-03] MEDS: PERCOCET 5/325 PO PRN ×5 (04:22→19:23)
--- NOTE | 2019-02-03 07:35 | Consultation ---
History of Present Illness - Reason for Consult Consult date: 02/02/19 Tachycardia and Dyspnea Requesting physician: MALLIKA HANNA - History of Present Illness S/p -- Left toilet mastectomy of ulcerated breast of the nearly the entire breast; chest wall defect 30x16 cm with wound vac in place has some dyspnea more than usual.C/o dressing being too tight.No recent travel . Past History Past Medical History: cancer (Breast) Past Surgical History: mastectomy (L mastectomy), Other Social history: lives with family, full code Family history: hypertension Medications and Allergies Allergies Allergy/AdvReac Type Severity Reaction Status Date / Time aspirin AdvReac GI Upset Verified 01/28/19 12:25 Home Medications Medication Instructions Recorded Confirmed Last Taken Type Cholecalciferol Vit D3 [Vitamin D3 1,000 unit PO QDAY 01/27/19 01/27/19 01/28/19 12:00 History 1,000 UNIT TAB] Clindamycin [Clindamycin CAP] 300 mg PO Q8H 01/27/19 01/27/19 01/28/19 12:00 History Cyanocobalamin [Vitamin B-12] 1,000 mcg PO DAILY 01/27/19 01/27/19 01/28/19 12:00 History HYDROcodone/APAP 10-325 [[place] 1 tab PO TID PRN 01/27/19 01/27/19 01/29/19 08:00 History 10-325 mg TAB] Ibuprofen [Motrin] 800 mg PO Q8HR PRN 01/27/19 01/27/19 Unknown History Iron [Iron 18 MG TAB] 18 mg PO Q48H 01/27/19 01/27/19 01/28/19 12:00 History Multivitamin/Iron/Folic Acid 1 each PO DAILY 01/27/19 01/27/19 01/28/19 12:00 History [Centrum Adults Tablet] amLODIPine [Norvasc] 5 mg PO DAILY 01/27/19 01/27/19 01/29/19 08:00 History Active Meds: Active Medications Acetaminophen (Tylenol) 650 mg PO Q6H PRN PRN Reason: Pain MILD(1-3)/Fever >100.5/RAMACHANDRAN Last Admin: 02/02/19 18:08 Dose: 650 mg Documented by: Amlodipine Besylate (Norvasc) 5 mg PO QDAY [facility] Last Admin: 10/13/19 09:39 Dose: 5 mg Documented by: Diphenhydramine HCl (Benadryl) 25 mg PO Q8H PRN PRN Reason: Itching Docusate Sodium (Colace) 100 mg PO TID [facility] Last Admin: 02/02/19 20:44 Dose: 100 mg Documented by: Enoxaparin Sodium (Lovenox) 40 mg SUB-Q QDAY [facility] Last Admin: 02/02/19 09:39 Dose: 40 mg Documented by: Fentanyl (Sublimaze) 100 mcg IV ONCE PRN PRN Reason: Chest Pain unrelieved by NTG Lactated Ringer's (Lactated Ringers) 1,000 mls @ 125 mls/hr IV DIRECT [facility] Sodium Chloride (Nacl 0.9% 1000 Ml) 1,000 mls @ 75 mls/hr IV DIRECT [facility] Magnesium Citrate (Citrate Of Magnesia) 300 ml PO QDAY PRN PRN Reason: Bowel Movement Metoclopramide HCl (Reglan) 10 mg PO Q6H PRN PRN Reason: Nausea And Vomiting Morphine Sulfate (Morphine) 2 mg IV Q4H PRN PRN Reason: Pain, Moderate (4-6) Last Admin: 02/01/19 09:08 Dose: 2 mg Documented by: Ondansetron HCl (Zofran) 4 mg IV Q8H PRN PRN Reason: N/V unrelieved by Reglan Oxycodone/Acetaminophen (Percocet 5/325) 2 tab PO Q4H PRN PRN Reason: Pain, Moderate (4-6) Last Admin: 02/03/19 04:22 Dose: 2 tab Documented by: Sodium Chloride (Sodium Chloride Flush Syringe 10 Ml) 10 ml IV PRN PRN PRN Reason: LINE FLUSH Review of Systems All systems: negative Cardiovascular: shortness of breath Respiratory: shortness of breath, pain on inspiration Exam - Constitutional Vitals: Temp Pulse Resp BP Pulse Ox 99.2 F 115 H 18 110/63 92 02/03/19 04:38 02/03/19 04:38 02/03/19 05:20 02/03/19 04:38 02/03/19 04:38 General appearance: Present: no acute distress, well-nourished - EENT Eyes: Present: PERRL ENT: hearing intact, clear oral mucosa - Neck Neck: Present: supple, normal ROM - Respiratory Respiratory effort: normal Respiratory: bilateral: CTA - Cardiovascular Heart rate: 120 Rhythm: regular Heart Sounds: Present: S1 & S2. Absent: rub, click - Extremities Extremities: no ischemia, pulses symmetrical, No edema Peripheral Pulses: within normal limits - Abdominal General gastrointestinal: Present: soft, non-tender, non-distended, normal bowel sounds Female genitourinary: Present: normal - Rectal Rectal Exam: deferred - Integumentary Integumentary: Present: clear, warm, dry - Musculoskeletal Musculoskeletal: gait normal, strength equal bilaterally - Psychiatric Psychiatric: appropriate mood/affect, intact judgment & insight - Neurologic Neurologic: CNII-XII intact, moves all extremities - Allied Health Allied health notes reviewed: nursing, case management Results - Labs CBC & Chem 7: 02/02/19 19:56 02/02/19 19:56 Labs: Abnormal lab results 01/29/19 02/02/19 02/02/19 Range/Units 11:25 08:48 08:48 WBC 12.9 H (4.5-11.0) K/mm3 RBC 3.14 L (3.65-5.03) M/mm3 Hgb 8.6 L (10.1-14.3) gm/dl Hct 26.6 L (30.3-42.9) % MCH 27 L (28-32) pg RDW 21.9 H (13.2-15.2) % Plt Count 557 H (140-440) K/mm3 Lymph % (Auto) 10.2 L (13.4-35.0) % [place] % (Auto) 11.6 H (0.0-7.3) % [place] # 1.5 H (0.0-0.8) K/mm3 Seg Neutrophils % 77.4 H (40.0-70.0) % Seg Neutrophils # 10.0 H (1.8-7.7) K/mm3 Creatinine 0.5 L (0.7-1.2) mg/dL Glucose 137 H (65-100) mg/dL Calcium (8.4-10.2) mg/dL Magnesium (1.7-2.3) mg/dL Albumin (3.9-5) g/dL Crossmatch See Detail 10/02/02/19 02/02/19 Range/Units 08:48 19:56 19:56 WBC 11.8 H (4.5-11.0) K/mm3 RBC 2.93 L (3.65-5.03) M/mm3 Hgb 8.0 L (10.1-14.3) gm/dl Hct 24.8 L (30.3-42.9) % MCH 27 L (28-32) pg RDW 21.9 H (13.2-15.2) % Plt Count 530 H (140-440) K/mm3 Lymph % (Auto) 11.7 L (13.4-35.0) % [place] % (Auto) 14.9 H (0.0-7.3) % [place] # 1.8 H (0.0-0.8) K/mm3 Seg Neutrophils % 72.2 H (40.0-70.0) % Seg Neutrophils # 8.6 H (1.8-7.7) K/mm3 Creatinine 0.6 L (0.7-1.2) mg/dL Glucose 104 H (65-100) mg/dL Calcium 8.1 L (8.4-10.2) mg/dL Magnesium 0.20 L* (1.7-2.3) mg/dL Albumin 2.1 L (3.9-5) g/dL Crossmatch CTA Chest IMPRESSION: 1. No evidence of acute pulmonary embolism. 2. Bilateral pleural effusions larger on the left. 3. Post left mastectomy with pulmonary metastatic disease, right axillary and left internal mammary adenopathy. 4. Cholelithiasis. - Imaging and Cardiology CT scan - chest: report reviewed (No PE,Gage pleural effusions) Assessment and Plan - Patient Problems (1) Pleural effusion Current Visit: Yes Status: Acute Plan to address problem: Reactive Pulmonary consult requested No PE
[2019-02-03] MEDS: COLACE PO SCH ×3 (08:09→19:23)
--- NOTE | 2019-02-03 10:17 | Progress Note ---
Assessment and Plan This is a 49 year old lady with Stage IV left breast cancer, POD #5 left toilet mastectomy for chest wall/breast extensive necrosis with ulceration with mastectomy performed of 30x16 cm and wound vac placed. 1. Patient with stable tachycardia and all workup negative, cardiac enzymes obtained and negative, CBC with H/H stable and minimal blood loss of less than 100 cc during surgery adn WBC of 12, EKG with sinus tachycardia, bilateral lower ext ultrasound negative for DVT and Chem 9 with low magnesium and undergoing replacement. Personally consulted Dr. Arriaga yesterday afternoon for evaluation and he recommended CT angio to rule out PE and findings negative for PE but left greater than right pleural effusion. Dr. Arriaga has consulted ICU for evaluation given left pleural effusion-will await recommendations, patient on room air. Wesley zarate will need cardiology appt at discharge per consult. 2. Left chest wall wound vac in place and will be changed today by wound care. Patient awaiting home wound vac for delivery by her insurance, d/c planning once the above resolved. 3. OOB to hallway. 4. Patient eating well and no PO concerns. 5. Resumed home meds yesterday. 6. Labs from this am pending. Subjective Date of service: 02/03/19 Principal diagnosis: Open wound of the left chest s/p toilet mastectomy of ulcerated left BR CA Interval history: No acute events overnight. Patient awaiting wound vac insurance approval. Objective - Constitutional Vitals: Vital Signs - 12hr 02/02/19 02/03/19 02/03/19 23:04 04:22 04:38 Temperature 99.2 F 99.2 F Pulse Rate 114 H 115 H Respiratory 20 18 20 Rate Respiratory 18 Rate [Left Chest] Blood Pressure 125/72 110/63 Blood Pressure [Right] O2 Sat by Pulse 100 92 Oximetry 02/03/19 02/03/19 05:20 07:10 Temperature 99.6 F Pulse Rate 115 H Respiratory 18 Rate Respiratory 18 Rate [Left Chest] Blood Pressure Blood Pressure 110/68 [Right] O2 Sat by Pulse Oximetry General appearance: Present: no acute distress - EENT Eyes: PERRL, EOM intact ENT: hearing intact, clear oral mucosa Ears: bilateral: normal - Neck Neck: supple - Respiratory Respiratory effort: normal Respiratory: bilateral: CTA - Breasts Breasts: other (left chest wall wound vac in place) - Cardiovascular Rhythm: regular Extremities: no ischemia, pulses intact, pulses symmetrical, No edema, normal temperature, normal color, Full ROM - Gastrointestinal General gastrointestinal: Present: soft, non-tender, non-distended Rectal Exam: deferred - Genitourinary Female genitourinary: deferred - Integumentary Integumentary: clear, warm, dry - Musculoskeletal Musculoskeletal: strength equal bilaterally - Neurologic Neurologic: CNII-XII intact, moves all extremities - Psychiatric Psychiatric: appropriate mood/affect, intact judgment & insight, memory intact, cooperative - Labs CBC & Chem 7: 02/02/19 19:56 02/02/19 19:56 Labs: Abnormal lab results 01/29/19 02/02/19 02/02/19 Range/Units 11:25 19:56 19:56 WBC 11.8 H (4.5-11.0) K/mm3 RBC 2.93 L (3.65-5.03) M/mm3 Hgb 8.0 L (10.1-14.3) gm/dl Hct 24.8 L (30.3-42.9) % MCH 27 L (28-32) pg RDW 21.9 H (13.2-15.2) % Plt Count 530 H (140-440) K/mm3 Lymph % (Auto) 11.7 L (13.4-35.0) % [place] % (Auto) 14.9 H (0.0-7.3) % [place] # 1.8 H (0.0-0.8) K/mm3 Seg Neutrophils % 72.2 H (40.0-70.0) % Seg Neutrophils # 8.6 H (1.8-7.7) K/mm3 Creatinine 0.6 L (0.7-1.2) mg/dL Glucose 104 H (65-100) mg/dL Calcium 8.1 L (8.4-10.2) mg/dL Albumin 2.1 L (3.9-5) g/dL Crossmatch See Detail Medications & Allergies - Medications Allergies/Adverse Reactions: Allergies aspirin Adverse Reaction (Verified 01/28/19 12:25) GI Upset Home Medications: Home Medications Medication Instructions Recorded Confirmed Last Taken Type Cholecalciferol Vit D3 [Vitamin D3 1,000 unit PO QDAY 01/27/19 01/27/1919 12:00 History 1,000 UNIT TAB] Clindamycin [Clindamycin CAP] 300 mg PO Q8H 01/27/19 01/27/19 01/28/19 12:00 History Cyanocobalamin [Vitamin B-12] 1,000 mcg PO DAILY 01/27/19 01/27/19 01/28/19 12:00 History HYDROcodone/APAP 10-325 [[place] 1 tab PO TID PRN 01/27/19 01/27/19 01/29/19 08:00 History 10-325 mg TAB] Ibuprofen [Motrin] 800 mg PO Q8HR PRN 01/27/19 01/27/19 Unknown History Iron [Iron 18 MG TAB] 18 mg PO Q48H 01/27/19 01/27/19 01/28/19 12:00 History Multivitamin/Iron/Folic Acid 1 each PO DAILY 01/27/19 01/27/19 01/28/19 12:00 History [Centrum Adults Tablet] amLODIPine [Norvasc] 5 mg PO DAILY 01/27/19 01/27/19 01/29/19 08:00 History Active Medications: Generic Name Dose Route Start Last Admin Trade Name Freq PRN Reason Stop Dose Admin Acetaminophen 650 mg 01/29/19 18:59 02/02/19 18:08 Tylenol PO 650 mg Q6H PRN Administration Pain MILD(1-3)/Fever >100.5/RAMACHANDRAN Amlodipine Besylate 5 mg 02/02/19 10:00 02/02/19 09:39 Norvasc PO 5 mg QDAY MANISH Administration Diphenhydramine HCl 25 mg 01/29/19 18:59 Benadryl PO Q8H PRN Itching Docusate Sodium 100 mg 02/01/19 20:00 02/03/19 08:09 Colace PO 100 mg TID MANISH Administration Enoxaparin Sodium 40 mg 01/30/19 10:00 02/02/19 09:39 Lovenox SUB-Q 40 mg QDAY MANISH Administration Fentanyl 100 mcg 01/29/19 14:05 Sublimaze IV ONCE PRN Chest Pain unrelieved by NTG Lactated Ringer's 1,000 mls @ 125 mls/hr 01/29/19 19:00 Lactated Ringers IV DIRECT MANISH Sodium Chloride 1,000 mls @ 75 mls/hr 02/02/19 19:00 Nacl 0.9% 1000 Ml IV DIRECT MANISH Magnesium Citrate 300 ml 02/01/19 15:07 Citrate Of Magnesia PO QDAY PRN Bowel Movement Metoclopramide HCl 10 mg 01/29/19 18:59 Reglan PO Q6H PRN Nausea And Vomiting Morphine Sulfate 2 mg 01/29/19 19:03 02/01/19 09:08 Morphine IV 2 mg Q4H PRN Administration Pain, Moderate (4-6) Ondansetron HCl 4 mg 01/29/19 18:59 Zofran IV Q8H PRN N/V unrelieved by Reglan Oxycodone/Acetaminophen 2 tab 02/02/19 07:56 02/03/19 08:19 Percocet 5/325 PO 2 tab Q4H PRN Administration Pain, Moderate (4-6) Sodium Chloride 10 ml 01/29/19 18:59 Sodium Chloride Flush Syringe 10 Ml IV PRN PRN LINE FLUSH
[2019-02-03] MEDS: NORVASC PO SCH (10:18)
[2019-02-03] MEDS: LOVENOX SUB-Q SCH (10:27)
[2019-02-03 10:36] LABS: BUN/Creatinine Ratio 20; Blood Urea Nitrogen 8 mg/dL (7-17); Calcium 8.9 mg/dL (8.4-10.2); Hemolysis Index 0
[2019-02-03 10:55] LABS: Basophils # (Auto) 0.1 K/mm3 (0.0-0.1); Basophils % (Auto) 0.4 % (0.0-1.8); Eosinophils % (Auto) 0.3 % (0.0-4.3); Hemoglobin 8.6 gm/dl (10.1-14.3); Lymphocytes # (Auto) 1.4 K/mm3 (1.2-5.4); Lymphocytes % (Auto) 11.4 % (13.4-35.0); Mean Corpuscular HGB Conc 32 % (30-34); Mean Corpuscular Volume 85 fl (79-97); Monocytes # (Auto) 1.4 K/mm3 (0.0-0.8); Monocytes % (Auto) 11.7 % (0.0-7.3); Platelet Count 581 K/mm3 (140-440); Red Blood Count 3.19 M/mm3 (3.65-5.03)
[2019-02-03 11:02] LABS: Red Cell Distribution Width 22.2 % (13.2-15.2)
[2019-02-03] MEDS: MORPHINE IV PRN ×2 (13:16→21:49)
--- NOTE | 2019-02-03 13:31 | Consultation ---
History of Present Illness Consult date: 02/03/19 Reason for consult: cough, pleural effusion History of present illness: PULMONARY AND CRITICAL CARE CONSULTATION. DR. HANNA THANK YOU FOR ASKING US TO PARTICIPATE IN THE CARE OF THIS PATIENT. This 49 year old female has left mastectomy for breast CA. Pulmonary consulted for Left pleural effusion. Patient has angio Ct of chest and venous doppler studies. Reported no PE or DVT.Patients Angio CT reported bilateral pleural effusions, more on left side. Patient scheduled for ultrasound guided thoracentesis. Patient denies chest pain, shortness of breath. Patient complaining slight productive white sputum. She denies fever or chills. Complaining pain at left mastectomy site. Patient has open wound at that site. Patient has history of hypertension. Denies other medical problems. No History of smoking, alcohol or drug abuse. and has 3 children. Allergic to aspirin. Worked last job [employer]. Past History Past Medical History: cancer (Breast) Past Surgical History: mastectomy (L mastectomy) Social history: lives with family, full code. denies: smoking, alcohol abuse, IV drug use Family history: hypertension Medications and Allergies Allergies Allergy/AdvReac Type Severity Reaction Status Date / Time aspirin AdvReac GI Upset Verified 01/28/19 12:25 Home Medications Medication Instructions Recorded Confirmed Last Taken Type Cholecalciferol Vit D3 [Vitamin D3 1,000 unit PO QDAY 01/27/19 01/27/19 01/28/19 12:00 History 1,000 UNIT TAB] Clindamycin [Clindamycin CAP] 300 mg PO Q8H 01/27/19 01/27/19 01/28/19 12:00 History Cyanocobalamin [Vitamin B-12] 1,000 mcg PO DAILY 01/27/19 01/27/19 01/28/19 12:00 History HYDROcodone/APAP 10-325 [[place] 1 tab PO TID PRN 01/27/19 01/27/19 01/29/19 08:00 History 10-325 mg TAB] Ibuprofen [Motrin] 800 mg PO Q8HR PRN 01/27/19 01/27/19 Unknown History Iron [Iron 18 MG TAB] 18 mg PO Q48H 01/27/19 01/27/19 01/28/19 12:00 History Multivitamin/Iron/Folic Acid 1 each PO DAILY 01/27/19 01/27/19 01/28/19 12:00 History [Centrum Adults Tablet] amLODIPine [Norvasc] 5 mg PO DAILY 01/27/19 01/27/19 01/29/19 08:00 History Active Meds: Active Medications Acetaminophen (Tylenol) 650 mg PO Q6H PRN PRN Reason: Pain MILD(1-3)/Fever >100.5/RAMACHANDRAN Last Admin: 02/02/19 18:08 Dose: 650 mg Documented by: Amlodipine Besylate (Norvasc) 5 mg PO QDAY [facility] Last Admin: 02/03/19 10:18 Dose: 5 mg Documented by: Diphenhydramine HCl (Benadryl) 25 mg PO Q8H PRN PRN Reason: Itching Docusate Sodium (Colace) 100 mg PO TID [facility] Last Admin: 02/03/19 08:09 Dose: 100 mg Documented by: Enoxaparin Sodium (Lovenox) 40 mg SUB-Q QDAY [facility] Last Admin: 02/03/19 10:27 Dose: 40 mg Documented by: Fentanyl (Sublimaze) 100 mcg IV ONCE PRN PRN Reason: Chest Pain unrelieved by NTG Lactated Ringer's (Lactated Ringers) 1,000 mls @ 125 mls/hr IV DIRECT MANISH Sodium Chloride (Nacl 0.9% 1000 Ml) 1,000 mls @ 75 mls/hr IV DIRECT [facility] Magnesium Citrate (Citrate Of Magnesia) 300 ml PO QDAY PRN PRN Reason: Bowel Movement Metoclopramide HCl (Reglan) 10 mg PO Q6H PRN PRN Reason: Nausea And Vomiting Morphine Sulfate (Morphine) 2 mg IV Q4H PRN PRN Reason: Pain, Moderate (4-6) Last Admin: 02/03/19 13:16 Dose: 2 mg Documented by: Ondansetron HCl (Zofran) 4 mg IV Q8H PRN PRN Reason: N/V unrelieved by Reglan Oxycodone/Acetaminophen (Percocet 5/325) 2 tab PO Q4H PRN PRN Reason: Pain, Moderate (4-6) Last Admin: 02/03/19 11:56 Dose: 2 tab Documented by: Sodium Chloride (Sodium Chloride Flush Syringe 10 Ml) 10 ml IV PRN PRN PRN Reason: LINE FLUSH Review of Systems All systems: negative Constitutional: other (Pain incision site of left mastectomy.) Physical Examination Vital signs: Vital Signs Temp Pulse Resp BP Pulse Ox 98 F 112 H 22 125/76 110 H 01/29/19 11:10 01/29/19 11:10 01/29/19 11:10 01/29/19 11:10 01/29/19 11:10 General appearance: alert, appears uncomfortable Eyes: non-icteric ENT: oropharynx moist Neck: supple, no JVD Ascultation: Bilateral: diminished breath sounds (More at left base.) Percussion: Left: dull Cardiovascular: regular rate and rhythm Gastrointestinal: normoactive bowel sounds, soft, non-tender Integumentary: other (Open wound left mastectomy area.) Extremities: no cyanosis, no edema Musculoskeletal: no deformities Gait: other (Patient resting in bed.) normal mental status, non-focal exam, pupils equal and round, CN II-XII normal anxious Results - Laboratory Findings CBC and BMP: 02/03/19 10:31 02/03/19 10:12 Abnormal lab findings: Abnormal Labs 01/29/19 01/29/19 02/02/19 11:25 11:25 08:48 WBC 12.9 H RBC 3.14 L Hgb 9.4 L 8.6 L Hct 28.9 L 26.6 L MCH 27 L RDW 21.9 H Plt Count 557 H Lymph % (Auto) 10.2 L [place] % (Auto) 11.6 H [place] # 1.5 H Seg Neutrophils % 77.4 H Seg Neutrophils # 10.0 H Creatinine Glucose Calcium Magnesium Albumin Crossmatch See Detail 02/02/19 02/02/19 02/02/19 08:48 08:48 19:56 WBC 11.8 H RBC 2.93 L Hgb 8.0 L Hct 24.8 L MCH 27 L RDW 21.9 H Plt Count 530 H Lymph % (Auto) 11.7 L [place] % (Auto) 14.9 H [place] # 1.8 H Seg Neutrophils % 72.2 H Seg Neutrophils # 8.6 H Creatinine 0.5 L Glucose 137 H Calcium Magnesium 0.20 L* Albumin Crossmatch 02/02/19 02/03/19 02/03/19 19:56 10:12 10:31 WBC 12.1 H RBC 3.19 L Hgb 8.6 L Hct 27.0 L MCH 27 L RDW 22.2 H Plt Count 581 H Lymph % (Auto) 11.4 L [place] % (Auto) 11.7 H [place] # 1.4 H Seg Neutrophils % 76.2 H Seg Neutrophils # 9.2 H Creatinine 0.6 L 0.4 L Glucose 104 H 126 H Calcium 8.1 L Magnesium Albumin 2.1 L Crossmatch - Diagnostic Findings CT scan - chest: report reviewed, image reviewed Additional studies: CT angio chest DONE 02/02/19 INDICATION / CLINICAL INFORMATION: Dyspnea. TECHNIQUE: Precontrast bolus timing images were obtained followed by postcontrast axial and reformatted images. 3-plane MIP reconstructions were performed at an independent workstation by the technologist. All CT scans at this location are performed using CT dose reduction for ALARA by means of automated exposure control. COMPARISON: None available. FINDINGS: Pulmonary arterial enhancement is normal, no evidence of pulmonary embolus. There is a large left and small right pleural effusion. Compressive atelectasis of the left lower lobe is noted. Diffuse pulmonary nodularity is consistent with metastatic disease. No superimposed airspace consolidation. Post left mastectomy changes. There are enlarged right axillary and left internal mammary Limited upper abdominal images show normal adrenal glands and cholelithiasis. There are sclerotic changes of the sternum. Hypertrophic ventral spurring is seen in multiple lower thoracic vertebral bodies. Lymph nodes. IMPRESSION: 1. No evidence of acute pulmonary embolism. 2. Bilateral pleural effusions larger on the left. 3. Post left mastectomy with pulmonary metastatic disease, right axillary and left internal mammary adenopathy. 4. Cholelithiasis. Assessment and Plan This 49 year old female has left mastectomy for breast CA. Pulmonary consulted for Left pleural effusion. Patient has angio Ct of chest and venous doppler studies. Reported no PE or DVT.Patients Angio CT reported bilateral pleural effusions, more on left side. Patient scheduled for ultrasound guided thoracentesis. Patient denies chest pain, shortness of breath. Patient complaining slight productive white sputum. She denies fever or chills. Complaining pain at left mastectomy site. Patient has open wound at that site. Patient has history of hypertension. Denies other medical problems. No History of smoking, alcohol or drug abuse. and has 3 children. Allergic to aspirin. Worked last job [employer]. - Patient Problems (1) Pleural effusion Current Visit: Yes Status: Acute Plan to address problem: Bilateral pleural effusions, more on left side. Recommend ultrasound guided thoracentesis. Send the pleural fluid for cell count, cytology, Gram stain C&S, Pleural fluid for protein, LDH, Glucose and amylase. Pleural fluid for AFB and fungus. (2) Metastatic breast cancer Current Visit: Yes Status: Acute Plan to address problem: Patient has left mastectomy for left breast CA. Metastatic nodules in lung Bilateral pleural effusions likly from Breast CA.
[2019-02-03] MEDS ORDERED: SUBLIMAZE IV ONE (13:34)
[2019-02-03 16:30] LABS: INR 1.1 (0.87-1.13)
[2019-02-04] MEDS: PERCOCET 5/325 PO PRN ×5 (00:09→17:20)
[2019-02-04] MEDS: COLACE PO SCH ×2 (08:15→15:07)
[2019-02-04] MEDS: NORVASC PO SCH (10:04)
[2019-02-04] MEDS: LOVENOX SUB-Q SCH (10:05)
--- NOTE | 2019-02-04 12:34 | Procedure Note ---
Date of procedure: 02/04/19 Pre-op diagnosis: left pleural effusion Procedure: US thoracentesis, left Findings: moderate left pleural fluid Anesthesia: local Surgeon: CHERIE CROCKER Estimated blood loss: none Pathology: list (120cc) Specimen disposition: to lab Condition: stable Disposition: floor
--- NOTE | 2019-02-04 12:40 | Ultrasound Report ---
Ultrasound-guided thoracentesis HISTORY: Dyspnea, malignant left pleural effusion. COMPARISON: None PROCEDURE: The risks (including but not limited to bleeding, infection, and pneumothorax) and benefi ts were explained to the patient and informed consent was obtained. A time out procedure was perform ed. Ultrasound was used to evaluate the left pleural effusion and locate the optimal site for needle entr y. Once the skin was marked, the procedure site was prepped and draped in the usual sterile fashion and lidocaine was used for local anesthesia. A skin argelia was made and a 6-B[address] thoracentesis megan ter was placed. The patient was monitored closely throughout the procedure, and a total of 950 mL of relatively clear yellow fluid was aspirated. Samples were sent to the lab for further evaluation pe r the primary clinicians orders. The patient tolerated the procedure well with no complications. A post-procedure chest x-ray was imm ediately ordered. IMPRESSION: Successful thoracentesis as above with a total of 150 mL of relatively clear yellow fluid aspirated. Signer Name: Kerwin Awad Jr, MD Signed: 02/04/2019 12:36 PM Workstation Name: [id number]
--- NOTE | 2019-02-04 12:59 | Progress Note ---
Assessment and Plan Patient undergone ultrasound guided left thoracentesis to day. Pleural fluid results pending.Patient alert , awake and resting on room air. O2 saturation 96%. No complaint of chest pain or shortness of breath except for slight cough. - Patient Problems (1) Pleural effusion Current Visit: Yes Status: Acute Plan to address problem: Bilateral pleural effusions, more on left side. Patient undergone ultrasound guided left thoracentesis. Send the pleural fluid for cell count, cytology, Gram stain C&S, Pleural fluid for protein, LDH, Glucose and amylase. Pleural fluid for AFB and fungus. (2) Metastatic breast cancer Current Visit: Yes Status: Acute Plan to address problem: Patient has left mastectomy for left breast CA. Metastatic nodules in lung Bilateral pleural effusions likely from Breast CA. Pleural fluid results pending. Subjective Date of service: 02/04/19 Principal diagnosis: Open wound of the left chest s/p toilet mastectomy of ulcerated left BR CA Interval history: Patient undergone ultrasound guided left thoracentesis to day. Pleural fluid results pending.Patient alert , awake and resting on room air. O2 saturation 96%. No complaint of chest pain or shortness of breath except for slight cough. Objective Vital Signs - 12hr 02/04/19 02/04/19 02/04/19 01:22 05:34 05:35 Temperature 100.1 F H 98.1 F Pulse Rate 127 H 111 H Respiratory 18 16 Rate Blood Pressure 117/75 119/70 O2 Sat by Pulse 97 95 Oximetry 02/04/19 02/04/19 02/04/19 07:44 10:02 10:04 Temperature 98.0 F Pulse Rate 116 H 115 H 116 H Respiratory 18 18 Rate Blood Pressure 124/66 106/56 106/56 O2 Sat by Pulse 93 96 Oximetry Constitutional: no acute distress, alert Eyes: non-icteric ENT: oropharynx moist Neck: supple, no JVD Ascultation: Bilateral: diminished breath sounds (More at left base.) Percussion: Left: dull Cardiovascular: regular rate and rhythm Gastrointestinal: normoactive bowel sounds, soft, non-tender Integumentary: other (Open wound left mastectomy area.) Extremities: no cyanosis, no edema Neurologic: normal mental status, non-focal exam, pupils equal and round, CN II- XII normal Psychiatric: anxious CBC and BMP: 02/03/19 10:31 02/03/19 10:12 ABG, PT/INR, D-dimer: PT/INR, D-dimer PT 13.9 Sec. (12.2-14.9) 02/03/19 15:56 INR 1.10 (0.87-1.13) 02/03/19 15:56 Abnormal lab findings: Abnormal Labs 01/29/19 01/29/19 02/02/19 11:25 11:25 08:48 WBC 12.9 H RBC 3.14 L Hgb 9.4 L 8.6 L Hct 28.9 L 26.6 L MCH 27 L RDW 21.9 H Plt Count 557 H Lymph % (Auto) 10.2 L [place] % (Auto) 11.6 H [place] # 1.5 H Seg Neutrophils % 77.4 H Seg Neutrophils # 10.0 H Creatinine Glucose Calcium Magnesium Albumin Crossmatch See Detail 02/02/19 02/02/19 02/02/19 08:48 08:48 19:56 WBC 11.8 H RBC 2.93 L Hgb 8.0 L Hct 24.8 L MCH 27 L RDW 21.9 H Plt Count 530 H Lymph % (Auto) 11.7 L [place] % (Auto) 14.9 H [place] # 1.8 H Seg Neutrophils % 72.2 H Seg Neutrophils # 8.6 H Creatinine 0.5 L Glucose 137 H Calcium Magnesium 0.20 L* Albumin Crossmatch 02/02/19 02/03/19 02/03/19 19:56 10:12 10:31 WBC 12.1 H RBC 3.19 L Hgb 8.6 L Hct 27.0 L MCH 27 L RDW 22.2 H Plt Count 581 H Lymph % (Auto) 11.4 L [place] % (Auto) 11.7 H [place] # 1.4 H Seg Neutrophils % 76.2 H Seg Neutrophils # 9.2 H Creatinine 0.6 L 0.4 L Glucose 104 H 126 H Calcium 8.1 L Magnesium Albumin 2.1 L Crossmatch Chest x-ray: report reviewed (Complete or near complete resolution of left pleural effusion. No pneumothorax.), image reviewed
--- NOTE | 2019-02-04 13:45 | Progress Note ---
Subjective Date of service: 02/04/19 Principal diagnosis: Open wound of the left chest s/p toilet mastectomy of ulcerated left BR CA Interval history: Plastic Surgery Progress Note Patient is doing well s/p thoracentesis. She denies cp, sob. She is eager to go home today. Afebrile, Stable tachycardia prior to procedure, mid 90's at bedside. Comfortable on room air. Left chest VAC dressing clean dry and intact, no leaks, serosanguinous output, no surround erythema or evidence of infection. Dressing change photos reviewed and showed granulation tissue coming in at wound base. Plan: POD #6 s/p Left mastectomy for Stage IV Breast CA Continue with VAC. Dressing changes every 3 days. Patient already has an appointment to follow up in wound care clinic tomorrow at 11am. Home VAC and supplies at bedside. Discussed with Dr. Padilla, pulmonology. As patient is stable and ap propriate for outpatient management, she will need to follow up with him next week to review cytology results from thoracentesis today. Follow up with me in clinic in about one week. Patient already has prescriptions filled for discharge. Plan of care discussed with Nurse Good. Objective - Constitutional Vitals: Vital Signs - 12hr 02/04/19 02/04/19 02/04/19 05:34 05:35 07:44 Temperature 98.1 F 98.0 F Pulse Rate 111 H 116 H Respiratory 16 18 Rate Blood Pressure 119/70 124/66 O2 Sat by Pulse 95 93 Oximetry 02/04/19 02/04/19 10:02 10:04 Temperature Pulse Rate 115 H 116 H Respiratory 18 Rate Blood Pressure 106/56 106/56 O2 Sat by Pulse 96 Oximetry - Labs CBC & Chem 7: 02/03/19 10:31 02/03/19 10:12 Medications & Allergies - Medications Allergies/Adverse Reactions: Allergies aspirin Adverse Reaction (Verified 01/28/19 12:25) GI Upset Home Medications: Home Medications Medication Instructions Recorded Confirmed Last Taken Type Cholecalciferol Vit D3 [Vitamin D3 1,000 unit PO QDAY 01/27/19 01/27/19 01/28/19 12:00 History 1,000 UNIT TAB] Clindamycin [Clindamycin CAP] 300 mg PO Q8H 01/27/19 01/27/19 01/28/19 12:00 History Cyanocobalamin [Vitamin B-12] 1,000 mcg PO DAILY 01/27/19 01/27/19 01/28/19 12:00 History HYDROcodone/APAP 10-325 [[place] 1 tab PO TID PRN 01/27/19 01/27/19 01/29/19 08:00 History 10-325 mg TAB] Ibuprofen [Motrin] 800 mg PO Q8HR PRN 01/27/19 01/27/19 Unknown History Iron [Iron 18 MG TAB] 18 mg PO Q48H 01/27/19 01/27/19 01/28/19 12:00 History Multivitamin/Iron/Folic Acid 1 each PO DAILY 01/27/19 01/27/19 01/28/19 12:00 History [Centrum Adults Tablet] amLODIPine [Norvasc] 5 mg PO DAILY 01/27/19 01/27/19 01/29/19 08:00 History Active Medications: Generic Name Dose Route Start Last Admin Trade Name Freq PRN Reason Stop Dose Admin Acetaminophen 650 mg 01/29/19 18:59 02/02/19 18:08 Tylenol PO 650 mg Q6H PRN Administration Pain MILD(1-3)/Fever >100.5/RAMACHANDRAN Amlodipine Besylate 5 mg 02/02/19 10:00 02/04/19 10:04 Norvasc PO Not Given QDAY MANISH Diphenhydramine HCl 25 mg 01/29/19 18:59 Benadryl PO Q8H PRN Itching Docusate Sodium 100 mg 02/01/19 20:00 02/04/19 08:15 Colace PO 100 mg TID MANISH Administration Enoxaparin Sodium 40 mg 01/30/19 10:00 02/04/19 10:05 Lovenox SUB-Q Not Given QDAY [facility] Fentanyl 100 mcg 01/29/19 14:05 Sublimaze IV ONCE PRN Chest Pain unrelieved by NTG Lactated Ringer's 1,000 mls @ 125 mls/hr 01/29/19 19:00 Lactated Ringers IV DIRECT [facility] Sodium Chloride 1,000 mls @ 75 mls/hr 02/02/19 19:00 Nacl 0.9% 1000 Ml IV DIRECT [facility] Magnesium Citrate 300 ml 02/01/19 15:07 Citrate Of Magnesia PO QDAY PRN Bowel Movement Metoclopramide HCl 10 mg 01/29/19 18:59 Reglan PO Q6H PRN Nausea And Vomiting Morphine Sulfate 2 mg 01/29/19 19:03 02/03/19 21:49 Morphine IV 2 mg Q4H PRN Administration Pain, Moderate (4-6) Ondansetron HCl 4 mg 01/29/19 18:59 Zofran IV Q8H PRN N/V unrelieved by Sherry Oxycodone/Acetaminophen 2 tab 02/02/19 07:56 02/04/19 12:42 Percocet 5/325 PO 2 tab Q4H PRN Administration Pain, Moderate (4-6) Sodium Chloride 10 ml 01/29/19 18:59 Sodium Chloride Flush Syringe 10 Ml IV PRN PRN LINE FLUSH
--- NOTE | 2019-02-04 14:12 | XRay Report ---
CHEST 1 VIEW INDICATION: Left pleural effusion, recent left thoracentesis, evaluate for pneumothorax. COMPARISON: None FINDINGS: Support devices: None. Heart: Mild cardiomegaly Lungs/Pleura: Complete or near complete evacuation of the left pleural fluid is demonstrated. There a re chronic interstitial changes throughout both lungs but no obvious mass, consolidation or pneumotho rax. Additional findings: None. IMPRESSION: Complete or near complete evacuation of the left pleural effusion. No pneumothorax. Signer Name: Kerwin Awad Jr, MD Signed: 02/04/2019 2:08 PM Workstation Name: [id number]
[2019-02-04 15:04] LABS: Total Cells Counted 100 /mm3
[2019-02-04 17:26] VITALS: BP 142/64
[2019-02-06 13:50] LABS: Amylase,Body Fluid < 10; LDH,Body Fluid 879; Total Protein,Body Fluid 3.9 (15.0-45.0)
== END 2019-02-04 18:20 | disposition home or self-care (01) | DRG 582 ==
LOC: OR 09:12 → OB 19:00
PROVIDERS: ADMIT Plastic Surgery; ATTEND Plastic Surgery
PROC: 0HTU0ZZ Resection of Left Breast, Open Approach (ICD-10-PCS; principal; 2019-01-29)
PROC: 07T60ZZ Resection of Left Axillary Lymphatic, Open Approach (ICD-10-PCS; 2019-01-29)
PROC: 2W14X6Z Compression of Chest Wall using Pressure Dressing (ICD-10-PCS; 2019-01-29)
PROC: 0W9B3ZZ Drainage of Left Pleural Cavity, Percutaneous Approach (ICD-10-PCS; 2019-02-04)
DX: C50.012 Malignant neoplasm of nipple and areola, left female breast (principal); J91.0 Malignant pleural effusion; R91.1 Solitary pulmonary nodule; I10 Essential (primary) hypertension; E66.9 Obesity, unspecified; Z82.49 Family history of ischemic heart disease and other diseases of the circulatory system; Z88.6 Allergy status to analgesic agent; Z79.899 Other long term (current) drug therapy; Z68.37 Body mass index [BMI] 37.0-37.9, adult
CPT/HCPCS: 32555; 36415; 71045; 71275; 80048; 80053; 82140; 82150; 82550; 82553; 82947; 83605; 83735; 84100; 84160; 84484; 85014; 85018; 85025; 85610; 86850; 86900; 86901; 86920; 87102; 87116; 88112; 88305; 88307; 88309; 88312; 88341; 88342; 89051; 93005; 93010; 93970; G0378; J0330; J1100; J1170; J1650; J2270; J2370; J2405; J2704; J2710; J3010; J3370; J3475; J7030; J7040; J7120; Q9967; Q9968

== ENCOUNTER 2019-02-05 10:48 | Outpatient (CLI) | payer MEDICAID ==
[2019-02-05] MEDS ORDERED: XYLOCAINE TOPICAL 4% TP ONE (10:55)
[2019-02-05] MEDS ORDERED: NACL 0.9% IR ONE (11:15)
== END 2019-02-05 10:49 | disposition home or self-care (01) ==
LOC: WOUND 10:48
PROVIDERS: ATTEND Surgery
DX: T81.89XA Other complications of procedures, not elsewhere classified, initial encounter (principal); C50.812 Malignant neoplasm of overlapping sites of left female breast; I10 Essential (primary) hypertension; Y83.8 Other surgical procedures as the cause of abnormal reaction of the patient, or of later complication, without mention of misadventure at the time of the procedure; Y92.89 Other specified places as the place of occurrence of the external cause
CPT/HCPCS: 11042; 11045; 97606; G0463; 99214

== ENCOUNTER 2019-02-06 08:00 | Outpatient (CLI) | payer MEDICAID | END 2019-02-06 08:01 | disposition home or self-care (01) | LOC: WOUND 08:00 | PROVIDERS: ATTEND Surgery | DX: S21.002S Unspecified open wound of left breast, sequela (principal); C50.812 Malignant neoplasm of overlapping sites of left female breast; I10 Essential (primary) hypertension; Y83.8 Other surgical procedures as the cause of abnormal reaction of the patient, or of later complication, without mention of misadventure at the time of the procedure | CPT/HCPCS: 97606 ==

== ENCOUNTER 2019-02-12 10:30 | Outpatient (CLI) | payer MEDICAID | END 2019-02-12 10:31 | disposition home or self-care (01) | LOC: WOUND 10:30 | PROVIDERS: ATTEND Surgery | DX: T81.89XD Other complications of procedures, not elsewhere classified, subsequent encounter (principal); C50.812 Malignant neoplasm of overlapping sites of left female breast; I10 Essential (primary) hypertension; Y83.8 Other surgical procedures as the cause of abnormal reaction of the patient, or of later complication, without mention of misadventure at the time of the procedure | CPT/HCPCS: 97606 ==

== ENCOUNTER 2019-02-14 10:54 | Outpatient (CLI) | payer MEDICAID | END 2019-02-14 10:55 | disposition home or self-care (01) | LOC: WOUND 10:54 | PROVIDERS: ATTEND Surgery | DX: T81.89XD Other complications of procedures, not elsewhere classified, subsequent encounter (principal); C50.812 Malignant neoplasm of overlapping sites of left female breast; I10 Essential (primary) hypertension; Y83.8 Other surgical procedures as the cause of abnormal reaction of the patient, or of later complication, without mention of misadventure at the time of the procedure | CPT/HCPCS: 97606 ==

== ENCOUNTER 2019-02-25 11:14 | Outpatient (CLI) | payer MEDICAID ==
[2019-02-25] MEDS ORDERED: LIDOCAINE (4%) 40 MG/ML TOPICAL SOLN 50 ML BOTTLE TP ONE (11:16)
== END 2019-02-25 11:15 | disposition home or self-care (01) ==
LOC: WOUND 11:14
PROVIDERS: ATTEND Surgery
DX: T81.89XD Other complications of procedures, not elsewhere classified, subsequent encounter (principal); C50.812 Malignant neoplasm of overlapping sites of left female breast; I10 Essential (primary) hypertension; Y83.8 Other surgical procedures as the cause of abnormal reaction of the patient, or of later complication, without mention of misadventure at the time of the procedure

== ENCOUNTER 2019-02-27 11:02 | Inpatient (IN) | payer MEDICAID ==
[2019-02-27] MEDS ORDERED: SODIUM CHLORIDE 0.9% 500 ML 500 ML IV ONE (11:52)
[2019-02-27 12:02] LABS: Basophils # (Auto) 0.1 K/mm3 (0.0-0.1); Basophils % (Auto) 0.4 % (0.0-1.8); Eosinophils % (Auto) 0.1 % (0.0-4.3); Hematocrit 28.8 % (30.3-42.9); Hemoglobin 8.7 gm/dl (10.1-14.3); Lymphocytes # (Auto) 2.4 K/mm3 (1.2-5.4); Lymphocytes % (Auto) 12.9 % (13.4-35.0); Mean Corpuscular HGB Conc 30 % (30-34); Mean Corpuscular Volume 80 fl (79-97); Monocytes # (Auto) 1.3 K/mm3 (0.0-0.8); Monocytes % (Auto) 6.9 % (0.0-7.3); Platelet Count 507 K/mm3 (140-440)
--- NOTE | 2019-02-27 12:16 | Emergency Department Report ---
ED General Adult HPI - General Chief complaint: Dyspnea/Respdistress Stated complaint: TRAV Time Seen by Provider: 02/27/19 11:43 Source: patient, EMS Mode of arrival: Stretcher Limitations: Physical Limitation - History of Present Illness Initial comments: Is a 49-year-old female was transferred for from her chest surgeon's office for respiratory distress. I spoke with Dr. Self who told me that they have been trying to get the family to take the patient to the emergency department for the last 3 days but they have refused. Today she presented in respiratory distress and was transferred here via EMS. EMS placed patient on supplemental oxygen but did not initiate airway assist. The patient arrives somnolent with pulse oximetry in the mid 70s despite oxygen. She was switched to an Ambu bag with assist as needed pending placement on BiPAP. Patient is not able to provide any history. The patient appears to have a port in her right chest. She could not confirm this. She could not tell me if she had been prior intubated or transfused. She looked extremely pale. She has obvious anasarca and full-thickness wounds on her anterior chest. She could not tell me if she wanted to be placed on a machine. She has a history of "stage IV breast cancer". She's had recent thoracentesis 2. According to her she was discharged from the hospital "2 Mondays ago". He is expressing dissatisfaction with prior care. I asked him if any doctor has previously discussed the patient's resuscitation status or plan for care. He denies this. He expressed dissatisfaction to the nursing staff for me to even mention this. I did explain to him that the patient was in dire condition when she arrived. She required noninvasive positive pressure ventilation and I placed a central line. He was obviously non-receptive to giving healthcare surrogate advice on the patient's resuscitative status. Indeed he later asked me not to speak about it again in front of the patient. The patient was somnolent on arrival and certainly incapable of making medical decisions. She did not even have the capacity to answer simple questions. -: days(s) Associated Symptoms: other (patient unable to provide history) - Related Data Home Medications Medication Instructions Recorded Confirmed Last Taken amLODIPine 5 mg PO DAILY 01/27/19 02/15/19 02/15/19 10:00 oxyCODONE [roxiCODONE] 10 mg PO Q6HR PRN 02/15/19 02/15/19 Unknown Previous Rx's Medication Instructions Recorded Last Taken Type Albuterol Sulfate [Proventil Hfa] 6.7 gm IH Q6H PRN #1 can 02/11/19 02/15/19 15:00 Rx Clindamycin [Clindamycin CAP] 300 mg PO Q8H #21 cap 02/11/19 02/15/19 10:00 Rx Budesonide/Formoterol Fumarate 2 puff IH BID #1 hfa.aer.ad 02/19/19 Unknown Rx [Symbicort 160-4.5 Mcg Inhaler] HYDROcodone/APAP 10-325 [[place] 1 each PO Q6HR PRN #30 tablet 02/19/19 Unknown Rx ] cephALEXin [Keflex] 500 mg PO Q6HR #40 capsule 02/19/19 Unknown Rx Allergies Allergy/AdvReac Type Severity Reaction Status Date / Time aspirin AdvReac GI Upset Verified 01/28/19 12:25 ED Review of Systems ROS: Stated complaint: TARV Other details as noted in HPI Comment: Unobtainable due to pts medical conditions ED Past Medical Hx - Past Medical History Hx Hypertension: Yes Hx Kidney Stones: Yes (PASSED WITH NO INTERVENTION) Hx Asthma: No Hx HIV: No - Surgical History Hx Breast Surgery: Yes (Left breast) Additional Surgical History: Left wrist tumor. right chest port - Social History Smoking Status: Never Smoker - Medications Home Medications: Home Medications Medication Instructions Recorded Confirmed Last Taken Type amLODIPine 5 mg PO DAILY 01/27/19 02/15/19 02/15/19 10:00 History Albuterol Sulfate [Proventil Hfa] 6.7 gm IH Q6H PRN #1 can 02/11/19 02/15/19 02/15/19 15:00 Rx Clindamycin [Clindamycin CAP] 300 mg PO Q8H #21 cap 02/11/19 02/15/19 02/15/19 10:00 Rx oxyCODONE [roxiCODONE] 10 mg PO Q6HR PRN 02/15/19 02/15/19 Unknown History Budesonide/Formoterol Fumarate 2 puff IH BID #1 hfa.aer.ad 02/19/19 Unknown Rx [Symbicort 160-4.5 Mcg Inhaler] HYDROcodone/APAP 10-325 [[place] 1 each PO Q6HR PRN #30 tablet 02/19/19 Unknown Rx 10/325] cephALEXin [Keflex] 500 mg PO Q6HR #40 capsule 02/19/19 Unknown Rx ED Physical Exam - General Limitations: Physical Limitation General appearance: obtunded (semi-obtunded), obese, other (anasarca) - Head Head exam: Present: atraumatic, normocephalic - Eye Eye exam: Present: other (extremely pale conjunctiva). Absent: scleral icterus - ENT ENT exam: Present: other (mucous membranes pale) - Neck Neck exam: Absent: tenderness, meningismus - Respiratory Respiratory exam: Present: normal lung sounds bilaterally (largely on limited exam), accessory muscle use, other (probable right chest port. Large full- thickness granulating chest wound. Lymphedema right breast ) - Cardiovascular Cardiovascular Exam: Present: regular rate, normal rhythm. Absent: systolic murmur, diastolic murmur, rubs, gallop - GI/Abdominal GI/Abdominal exam: Present: soft. Absent: distended, tenderness, guarding, rebound - Extremities Exam Extremities exam: Present: other (4+ extremity edema) - Back Exam Back exam: Present: other (thoracentesis dressings) - Neurological Exam Neurological exam: Present: other (mood exam appears to be nonfocal) - Psychiatric Psychiatric exam: Present: depressed, flat affect - Skin Skin exam: Present: pallor ED Course Vital Signs 02/27/19 02/27/19 02/27/19 11:04 11:16 11:18 Pulse Rate 126 H 117 H Respiratory 35 H 19 Rate Blood Pressure 145/66 145/66 O2 Sat by Pulse 100 76 L 97 Oximetry 02/27/19 02/27/19 12:30 13:35 Pulse Rate 142 H 117 H Respiratory 36 H 27 H Rate Blood Pressure O2 Sat by Pulse 99 100 Oximetry - Central Line Placement Left IJ Consent Obtained: emergent situation Time Out Performed: Yes Patient Placed on Monitor/Pulse Ox: Yes MD Prep: mask, gown, gloves, other Central Line Prep: Chlorhexidine scrub Local Anesthesia Used: Lidocaine 1% Amount of Anesthesia Used (mls): 5 Ultrasound Used for Placement: No Central Line Lumen Inserted: triple Bloods Obtained for Lab: Yes Central Line Position: good blood return (venous nonpulsatile), all ports aspirated, flus, sutured in place with 3-0 Dressing Applied: Tegaderm Post Procedure X-Ray: tip of catheter in good p (xray confirmed) Patient Tolerated Procedure: well Complications: none ED Medical Decision Making - Lab Data Result diagrams: 02/27/19 11:33 02/27/19 11:33 Laboratory Results - last 24 hr 02/27/19 02/27/19 02/27/19 11:33 11:33 11:33 WBC 18.6 H RBC 3.60 L Hgb 8.7 L Hct 28.8 L MCV 80 MCH 24 L MCHC 30 RDW 23.0 H Plt Count 507 H Lymph % (Auto) 12.9 L Glynn % (Auto) 6.9 Eos % (Auto) 0.1 Baso % (Auto) 0.4 Lymph # 2.4 Glynn # 1.3 H Eos # 0.0 Baso # 0.1 Seg Neutrophils % 79.7 H Seg Neutrophils # 14.8 H PT TNR INR TNR APTT TNR D-Dimer TNR Sodium 143 Potassium 3.8 Chloride 96.8 L Carbon Dioxide 29 Anion Gap 21 BUN 28 H Creatinine 0.5 L Estimated GFR > 60 BUN/Creatinine Ratio 56 Glucose 169 H Calcium 9.4 Magnesium 2.20 Blood Type Crossmatch 02/27/19 11:45 WBC RBC Hgb Hct MCV MCH MCHC RDW Plt Count Lymph % (Auto) Glynn % (Auto) Eos % (Auto) Baso % (Auto) Lymph # Glynn # Eos # Baso # Seg Neutrophils % Seg Neutrophils # PT INR APTT D-Dimer Sodium Potassium Chloride Carbon Dioxide Anion Gap BUN Creatinine Estimated GFR BUN/Creatinine Ratio Glucose Calcium Magnesium Blood Type O POSITIVE Crossmatch See Detail Laboratory Results - last 24 hr 02/27/19 02/27/19 02/27/19 11:33 11:33 11:33 WBC 18.6 H RBC 3.60 L Hgb 8.7 L Hct 28.8 L MCV 80 MCH 24 L MCHC 30 RDW 23.0 H Plt Count 507 H Lymph % (Auto) 12.9 L Glynn % (Auto) 6.9 Eos % (Auto) 0.1 Baso % (Auto) 0.4 Lymph # 2.4 Glynn # 1.3 H Eos # 0.0 Baso # 0.1 Seg Neutrophils % 79.7 H Seg Neutrophils # 14.8 H PT TNR INR TNR APTT TNR D-Dimer TNR POC ABG pH POC ABG pO2 POC ABG HCO3 POC ABG Total CO2 POC ABG O2 Sat POC ABG Base Excess FiO2 Sodium 143 Potassium 3.8 Chloride 96.8 L Carbon Dioxide 29 Anion Gap 21 BUN 28 H Creatinine 0.5 L Estimated GFR > 60 BUN/Creatinine Ratio 56 Glucose 169 H POC Glucose Lactic Acid Calcium 9.4 Magnesium 2.20 Total Bilirubin Direct Bilirubin Indirect Bilirubin AST ALT Alkaline Phosphatase Total Creatine Kinase 197 H CK-MB (CK-2) 4.1 H CK-MB (CK-2) Rel Index 2.0 Troponin T < 0.010 Total Protein Albumin Albumin/Globulin Ratio Blood Type Antibody Screen Crossmatch 02/27/19 02/27/19 02/27/19 11:33 11:33 11:33 WBC RBC Hgb Hct MCV MCH MCHC RDW Plt Count Lymph % (Auto) Glynn % (Auto) Eos % (Auto) Baso % (Auto) Lymph # Glynn # Eos # Baso # Seg Neutrophils % Seg Neutrophils # PT INR APTT D-Dimer POC ABG pH POC ABG pO2 POC ABG HCO3 POC ABG Total CO2 POC ABG O2 Sat POC ABG Base Excess FiO2 Sodium Potassium Chloride Carbon Dioxide Anion Gap BUN Creatinine Estimated GFR BUN/Creatinine Ratio Glucose POC Glucose Lactic Acid 3.40 H* Calcium Magnesium Total Bilirubin 0.20 Direct Bilirubin < 0.2 Indirect Bilirubin 0.0 AST 95 H ALT 35 Alkaline Phosphatase 130 H Total Creatine Kinase CK-MB (CK-2) CK-MB (CK-2) Rel Index Troponin T < 0.010 Total Protein 6.9 Albumin 2.9 L Albumin/Globulin Ratio 0.7 Blood Type Antibody Screen Crossmatch 02/27/19 02/27/19 02/27/19 11:45 11:47 12:30 WBC RBC Hgb Hct MCV MCH MCHC RDW Plt Count Lymph % (Auto) Glynn % (Auto) Eos % (Auto) Baso % (Auto) Lymph # Glynn # Eos # Baso # Seg Neutrophils % Seg Neutrophils # PT INR APTT D-Dimer POC ABG pH 7.326 L POC ABG pO2 129 H POC ABG HCO3 37.6 POC ABG Total CO2 40 POC ABG O2 Sat 98 POC ABG Base Excess 12 FiO2 100 Sodium Potassium Chloride Carbon Dioxide Anion Gap BUN Creatinine Estimated GFR BUN/Creatinine Ratio Glucose POC Glucose 169 H Lactic Acid Calcium Magnesium Total Bilirubin Direct Bilirubin Indirect Bilirubin AST ALT Alkaline Phosphatase Total Creatine Kinase CK-MB (CK-2) CK-MB (CK-2) Rel Index Troponin T Total Protein Albumin Albumin/Globulin Ratio Blood Type O POSITIVE Antibody Screen Negative Crossmatch See Detail 02/27/19 12:38 WBC RBC Hgb Hct MCV MCH MCHC RDW Plt Count Lymph % (Auto) Glynn % (Auto) Eos % (Auto) Baso % (Auto) Lymph # Glynn # Eos # Baso # Seg Neutrophils % Seg Neutrophils # PT 14.8 INR 1.17 H APTT 26.9 D-Dimer 5778.32 H POC ABG pH POC ABG pO2 POC ABG HCO3 POC ABG Total CO2 POC ABG O2 Sat POC ABG Base Excess FiO2 Sodium Potassium Chloride Carbon Dioxide Anion Gap BUN Creatinine Estimated GFR BUN/Creatinine Ratio Glucose POC Glucose Lactic Acid Calcium Magnesium Total Bilirubin Direct Bilirubin Indirect Bilirubin AST ALT Alkaline Phosphatase Total Creatine Kinase CK-MB (CK-2) CK-MB (CK-2) Rel Index Troponin T Total Protein Albumin Albumin/Globulin Ratio Blood Type Antibody Screen Crossmatch - EKG Data -: EKG Interpreted by Ga EKG shows normal: sinus rhythm - EKG Data Interpretation: no acute changes - Radiology Data Radiology results: image reviewed (she does have a right pleural effusion. However she has bilateral pulmonary infiltrates. There is somewhat consolidating on the left. Pulmonary edema versus lymphangitic tumor versus pneumonia versus a combination of the above.) Critical Care Time: Yes Critical care time in (mins) excluding proc time.: 90 Critical care attestation.: If time is entered above; I have spent that time in minutes in the direct care of this critically ill patient, excluding procedure time. ED Disposition Clinical Impression: Anasarca, Metastatic breast cancer Anemia Qualifiers: Anemia type: unspecified type Qualified Code(s): D64.9 - Anemia, unspecified Sepsis Qualifiers: Sepsis type: sepsis due to unspecified organism Sepsis acute organ dysfunction status: unspecified Qualified Code(s): A41.9 - Sepsis, unspecified organism Pneumonia Qualifiers: Pneumonia type: due to unspecified organism Laterality: bilateral Lung location: unspecified part of lung Qualified Code(s): J18.9 - Pneumonia, unspecified organism Respiratory failure Qualifiers: Chronicity: acute Respiratory failure complication: hypoxia Qualified Code(s): J96.01 - Acute respiratory failure with hypoxia Disposition: DC-09 OP ADMIT IP TO THIS HOSP Is pt being admited?: Yes Does the pt Need Aspirin: Yes Condition: Stable Instructions: Bacterial Pneumonia (ED) Referrals: PRIMARY CARE, [Referring] - 3-5 Days Time of Disposition: 14:44
[2019-02-27] MEDS ORDERED: MEROPENEM/NS 1 GRAM/100 ML 1 GRAM/100 ML BAG IV ONE (12:28)
[2019-02-27 12:31] LABS: BUN/Creatinine Ratio 56; Blood Urea Nitrogen 28 mg/dL (7-17); Calcium 9.4 mg/dL (8.4-10.2); Hemolysis Index 2; INR TNR (0.87-1.13); Partial Thromboplastin Time TNR Sec. (24.2-36.6)
[2019-02-27 12:32] LABS: Creatine Kinase MB 4.1 ng/mL (0.0-4.0)
[2019-02-27 12:34] LABS: Alanine Aminotransferase 35 units/L (7-56); Albumin 2.9 g/dL (3.9-5); Bilirubin,Direct < 0.2 mg/dL (0-0.2)
[2019-02-27] MEDS ORDERED: FUROSEMIDE 40 MG/4 ML INJ IV ONE (12:34)
--- NOTE | 2019-02-27 12:49 | XRay Report ---
CHEST 1 VIEW INDICATION: Dyspnea. COMPARISON: 02/18/2019 and 02/04/2019 FINDINGS: Support devices: A left central venous catheter has been inserted and the tip is in the right atrium at the cavoatrial junction in satisfactory position. A right [id number] tip is adjacent to this ce ntral catheter. Heart: Cardiac borders are obscured but the heart appears to be enlarged. Pulmonary vasculature: Obscured. Lungs/Pleura: Worsened bilateral airspace disease with confluent consolidation extending from the hil a to the chest wall bilaterally. Silhouetting of the heart borders and the diaphragm. Bilateral air b ronchograms. No pneumothorax. Additional findings: None. IMPRESSION: Extensive bilateral alveolar pulmonary edema versus multilobar pneumonia. Significant worsening of ai rspace disease since the last exam. Signer Name: Hitesh Lozano MD Signed: 02/27/2019 12:44 PM Workstation Name: [id number]
[2019-02-27] MEDS ORDERED: VANCOMYCIN PHARMACY TO DOSE IV SCH (13:00)
[2019-02-27 13:05] LABS: INR 1.17 (0.87-1.13); Partial Thromboplastin Time 26.9 Sec. (24.2-36.6)
[2019-02-27 14:53] LABS: Bacteria,Urine 1+ /HPF (Negative); Bilirubin,Urine NEG (Negative); Blood,Urine NEG (Negative); Color,Urine Straw (Yellow); Mucus,Urine FEW /HPF; Protein,Urine <15 mg/dL mg/dL (Negative); Urobilinogen,Urine < 2.0 mg/dL (<2.0); White Blood Cell Casts,Urine 1 /LPF
[2019-02-27] MEDS ORDERED: VANCOMYCIN 2,000 MG in SODIUM CHLORIDE 0.9% 500 ML 500 ML IV SCH (15:00)
[2019-02-27] MEDS ORDERED: HYDROmorphone 1 MG/1 ML INJ ONE (18:56)
[2019-02-27] MEDS: HYDROmorphone 1 MG/1 ML INJ IV PRN (19:05)
[2019-02-27] MEDS ORDERED: CEFEPIME/NS 2 GM/100 ML 2 GM/100 ML BAG IV ONE (20:10)
[2019-02-27] MEDS: CEFEPIME/NS 2 GM/100 ML 2 GM/100 ML BAG IV SCH (20:21)
[2019-02-27] MEDS ORDERED: ALBUTEROL 2.5 MG/3 ML NEBU IH PRN ×2 (21:08→21:12)
[2019-02-27] MEDS: methylPREDNISolone Sod Succinate 125 MG/2 ML INJ IV SCH (22:00)
[2019-02-28] MEDS ORDERED: VANCOMYCIN 1,500 MG in SODIUM CHLORIDE 0.9% 500 ML 500 ML IV SCH (03:00)
[2019-02-28] MEDS: CEFEPIME/NS 2 GM/100 ML 2 GM/100 ML BAG IV SCH ×3 (04:00→21:00)
[2019-02-28] MEDS: HYDROmorphone 1 MG/1 ML INJ IV PRN ×2 (04:36→20:44)
[2019-02-28] MEDS: FUROSEMIDE 40 MG/4 ML INJ IV SCH ×3 (05:45→18:02)
[2019-02-28] MEDS: methylPREDNISolone Sod Succinate 125 MG/2 ML INJ IV SCH ×4 (05:56→22:39)
--- NOTE | 2019-02-28 06:18 | Event Note ---
Date: 02/27/19 See H/p in reports Acute resp failure Pulmonary edema L open chest wound after Mastectomy and debridement Gage pleural effusion and Thoracentesis in past one month DNI--Spent 90 minutes regarding code status-Family ambigous and patient decides on DNI.
--- NOTE | 2019-02-28 07:16 | History and Physical Report ---
CHIEF COMPLAINT: Increasing shortness of breath for the last 3 days. HISTORY OF PRESENT ILLNESS: A 49-year-old -[place] female with history of breast cancer and recent left toilet mastectomy for ulcerated breast on 02/03/2019 with a large chest wall defect 30 cm x 16 cm, comes in for increasing shortness of breath over the last 3 days. The patient was recently discharged on 02/19/2019 after thoracentesis secondary to pleural effusion. The patient has been having increased shortness of breath for the last 3 days. Hospice and DNR was discussed, but family wants everything to be done. No fever. No chills. The patient has a stage IV breast cancer. The patient is a bit lethargic, but able to talk and make decisions. Severely tachypneic. PAST MEDICAL HISTORY: As mentioned, breast cancer, left toilet mastectomy on 02/03/2019, left chest wound 30 cm x 16 cm, hypertension. PAST SURGICAL HISTORY: Left mastectomy and left chest wall wound for which toilet mastectomy was done and wound VAC was placed, but the patient is not doing the wound VAC because of discomfort. SOCIAL HISTORY: Not a smoker. FAMILY HISTORY: Hypertension. REVIEW OF SYSTEMS: Significant for severe shortness of breath for the last 3 days. Unable to lie flat. No chest pain. Very uncomfortable. No fever. Otherwise, review of systems negative. A 14-point review of systems done. PHYSICAL EXAMINATION: GENERAL: The patient in severe respiratory distress, on BiPAP machine. VITAL SIGNS: Blood pressure is 112/62, respiratory rate is 20, sats are 97%, pulse rate is 120, temperature is 99.4. HEENT: Unremarkable. NECK: Accessory muscles of respiration are prominent. CHEST AND LUNGS: Bilateral inspiratory and expiratory rhonchi present. CARDIOVASCULAR: S1, S2 heard. No gallop, no murmur, no rub. Apical impulse in left fifth intercostal space midclavicular line. Chest wall ,large wound present to the chest with a dressing about 30 cm x 16 cm. ABDOMEN: Soft and benign. No hepatosplenomegaly. No guarding, no rigidity. Hernial orifices are normal. EXTREMITIES: Good pedal pulses. No pedal edema. CENTRAL NERVOUS SYSTEM: Alert and oriented x 4, nonfocal exam. SKIN: Normal except for a large ulcer on the left chest wall, 30 cm x 16 cm. LABORATORY DATA: Significant for white count of 18,600, H and H is 8.7 and 28.8, platelet count is 507,000. Electrolytes: Sodium is 143, potassium is 3.8, chloride is 96.8, BUN and creatinine is 28 and 0.5, glucose is 169. Lactic acid is 3.4 and 3.2 and 2.3. CK-MB is 4.1. Total CK is 197. Urine is negative. Chest x-ray shows bilateral pulmonary edema. Left pleural effusion. Extensive bilateral alveolar pulmonary edema versus multilobar pneumonia, significant worsening of airspace disease seen in last exam. Left central venous catheter was present. ASSESSMENT AND PLAN: 1. Sepsis secondary to bilateral pneumonia. The patient initiated on cefepime and vancomycin. 2. Acute respiratory failure. The patient is on BiPAP and is tolerating. ABG significant for pCO2 of 68.8, pO2 of 225 and pH of 7.361. The patient was given the option of being intubated. The patient does not want intubation. Extensive discussion about code status was done with the patient and of 2 years marriage and her daughter is one on the phone and one at the bedside. They are very ambiguous. Initially, they wanted for everything to be done. The patient did not want intubation and we are planning intubation. She wanted to be do not intubate. She is not clear about resuscitation. Continue BiPAP and DuoNebs. 3. Bilateral pneumonia, IV cefepime and vancomycin. 4. Bilateral acute pulmonary edema. Lasix initiated. We will get BNP. 5. Breast cancer with left chest wall ulceration. Wound care and Breast Surgery consulted. Prognosis is very poor. Continue IV antibiotics. Continue nebulizer treatments. Pain control. Glaze Sprayer consult and surgical consult. 6.DVT prophylaxis--scd's Critical care time was for about 65 minutes . JOB# [id number] SESAR/SYED WELLER
[2019-02-28] MEDS ORDERED: IPRATROPIUM/ALBUTEROL SULFATE 3 ML AMPUL.NEB IH SCH ×2 (08:00)
--- NOTE | 2019-02-28 08:45 | Progress Note ---
Assessment and Plan Assessment and plan: Acute resp failure , now on BIPAP CXR says bilateral opacities- edema versus pneumonia On Lasix On iv Abx Cefepime and vancomycin Pulmonology consulted Recently discharged from hospital about 1 week ago Sepsis with leukocytosis, fever,tachy, lactic acidosis Blood cultures drawn Bilateral opacities: pulmonary edema versus pneumonia On lasix and Antibiotics consult ID Physician History of pleural effusion s/p thoracentesis recent Left breast cancer s/p surgery Dr. Self following I discussed with her Wound nurse consult Hypertension Monitor BP Elevated d-dimer For Ct angio chest Full code status I discussed code status with Patient and at bedside. History Interval history: Shortness of breath Hospitalist Physical - Physical exam Narrative exam: Gen: In mild resp distress, lying in bed, on BIPAP HEENT: Normocephalic, atraumatic Neck: supple, no JVD Heart: S1 and S2 reg, no murmurs, rubs or gallop Lungs: Bilateral crackles, bilat rhonchi, Chest wall wound, Right port Abd: soft, NT, non distended, normal BS, Ext: Bilateral edema, no clubbing, no cyanosis Neuro: Awake, alert, no focal neurological signs - Constitutional Vitals: Temp Pulse Resp BP Pulse Ox 99.9 F H 105 H 22 120/71 100 02/28/19 03:40 02/28/19 08:10 02/28/19 08:10 02/28/19 08:10 02/28/19 08:10 Results - Labs CBC & Chem 7: 02/28/19 10:00 02/28/19 10:00 Labs: Laboratory Last Values WBC 18.6 K/mm3 (4.5-11.0) H 02/27/19 11:33 RBC 3.60 M/mm3 (3.65-5.03) L 02/27/19 11:33 Hgb 8.7 gm/dl (10.1-14.3) L 02/27/19 11:33 Hct 28.8 % (30.3-42.9) L 02/27/19 11:33 MCV 80 fl (79-97) 02/27/19 11:33 MCH 24 pg (28-32) L 02/27/19 11:33 MCHC 30 % (30-34) 02/27/19 11:33 RDW 23.0 % (13.2-15.2) H 02/27/19 11:33 Plt Count 507 K/mm3 (140-440) H 02/27/19 11:33 Lymph % (Auto) 12.9 % (13.4-35.0) L 02/27/19 11:33 Desha % (Auto) 6.9 % (0.0-7.3) 02/27/19 11:33 Eos % (Auto) 0.1 % (0.0-4.3) 02/27/19 11:33 Baso % (Auto) 0.4 % (0.0-1.8) 02/27/19 11:33 Lymph # 2.4 K/mm3 (1.2-5.4) 02/27/19 11:33 Desha # 1.3 K/mm3 (0.0-0.8) H 02/27/19 11:33 Eos # 0.0 K/mm3 (0.0-0.4) 02/27/19 11:33 Baso # 0.1 K/mm3 (0.0-0.1) 02/27/19 11:33 Seg Neutrophils % 79.7 % (40.0-70.0) H 02/27/19 11:33 Seg Neutrophils # 14.8 K/mm3 (1.8-7.7) H 02/27/19 11:33 PT 14.8 Sec. (12.2-14.9) 02/27/19 12:38 INR 1.17 (0.87-1.13) H 02/27/19 12:38 APTT 26.9 Sec. (24.2-36.6) 02/27/19 12:38 D-Dimer 5778.32 ng/mlDDU (0-234) H 02/27/19 12:38 POC ABG pH 7.361 (7.35-7.45) 02/27/19 18:08 POC ABG pCO2 68.8 (35-45) H 02/27/19 18:08 POC ABG pO2 225 (80-105) H 02/27/19 18:08 POC ABG HCO3 38.9 (22-26 mml/L) 02/27/19 18:08 POC ABG Total CO2 41 (23-27mmol/L) 02/27/19 18:08 POC ABG O2 Sat 100 02/27/19 18:08 POC ABG Base Excess 14 ((-2) - (+3)mmol/L) 02/27/19 18:08 FiO2 85 % 02/27/19 18:08 Sodium 143 mmol/L (137-145) 02/27/19 11:33 Potassium 3.8 mmol/L (3.6-5.0) 02/27/19 11:33 Chloride 96.8 mmol/L (98-107) L 02/27/19 11:33 Carbon Dioxide 29 mmol/L (22-30) 02/27/19 11:33 Anion Gap 21 mmol/L 02/27/19 11:33 BUN 28 mg/dL (7-17) H 02/27/19 11:33 Creatinine 0.5 mg/dL (0.7-1.2) L 02/27/19 11:33 Estimated GFR > 60 ml/min 02/27/19 11:33 BUN/Creatinine Ratio 56 % 02/27/19 11:33 Glucose 169 mg/dL (65-100) H 02/27/19 11:33 POC Glucose 169 (70-105) H 02/27/19 11:47 Lactic Acid 2.30 mmol/L (0.7-2.0) H* 02/27/19 18:12 Calcium 9.4 mg/dL (8.4-10.2) 02/27/19 11:33 Magnesium 2.20 mg/dL (1.7-2.3) 02/27/19 11:33 Total Bilirubin 0.20 mg/dL (0.1-1.2) 02/27/19 11:33 Direct Bilirubin < 0.2 mg/dL (0-0.2) 02/27/19 11:33 Indirect Bilirubin 0.0 mg/dL 02/27/19 11:33 AST 95 units/L (5-40) H 02/27/19 11:33 ALT 35 units/L (7-56) 02/27/19 11:33 Alkaline Phosphatase 130 units/L (35-129) H 02/27/19 11:33 Total Creatine Kinase 197 units/L (30-135) H 02/27/19 11:33 CK-MB (CK-2) 4.1 ng/mL (0.0-4.0) H 02/27/19 11:33 CK-MB (CK-2) Rel Index 2.0 (0-4) 02/27/19 11:33 Troponin T < 0.010 ng/mL (0.00-0.029) 02/27/19 11:33 Troponin T < 0.010 ng/mL (0.00-0.029) 02/27/19 11:33 Total Protein 6.9 g/dL (6.3-8.2) 02/27/19 11:33 Albumin 2.9 g/dL (3.9-5) L 02/27/19 11:33 Albumin/Globulin Ratio 0.7 % 02/27/19 11:33 Urine Color Straw (Yellow) 02/27/19 Unknown Urine Turbidity Clear (Clear) 02/27/19 Unknown Urine pH 5.0 (5.0-7.0) 02/27/19 Unknown Ur Specific [place] 1.009 (1.003-1.030) 02/27/19 Unknown Urine Protein <15 mg/dl mg/dL (Negative) 02/27/19 Unknown Urine Glucose (UA) Neg mg/dL (Negative) 02/27/19 Unknown Urine Ketones Neg mg/dL (Negative) 02/27/19 Unknown Urine Blood Neg (Negative) 02/27/19 Unknown Urine Nitrite Neg (Negative) 02/27/19 Unknown Urine Bilirubin Neg (Negative) 02/27/19 Unknown Urine Urobilinogen < 2.0 mg/dL (<2.0) 02/27/19 Unknown Ur Leukocyte Esterase Neg (Negative) 02/27/19 Unknown Urine WBC (Auto) 3.0 /HPF (0.0-6.0) 02/27/19 Unknown Urine RBC (Auto) 1.0 /HPF (0.0-6.0) 02/27/19 Unknown U Epithel Cells (Auto) 1.0 /HPF (0-13.0) 02/27/19 Unknown Urine Bacteria (Auto) 1+ /HPF (Negative) 02/27/19 Unknown WBC Casts 1 /LPF 02/27/19 Unknown Urine Mucus Few /HPF 02/27/19 Unknown Blood Type O POSITIVE 02/27/19 11:45 Antibody Screen Negative 02/27/19 11:45 Crossmatch See Detail 02/27/19 11:45 Active Medications - Current Medications Current Medications: Generic Name Dose Route Start Last Admin Trade Name Freq PRN Reason Stop Dose Admin Albuterol 2.5 mg 02/27/19 21:08 Proventil IH Q4HRT PRN Shortness Of Breath Albuterol/Ipratropium 1 ampul 02/28/19 08:00 Duoneb *Not For Prn Use* IH TIDRT MANISH Furosemide 40 mg 02/28/19 06:00 02/28/19 05:57 Lasix IV Not Given 0600,1800 MANISH Hydromorphone HCl 0.5 mg 02/27/19 18:52 02/28/19 04:36 Dilaudid IV 0.5 mg Q3H PRN Administration pain Vancomycin HCl 1,500 mg/ 530 mls @ 333.333 mls/hr 02/28/19 03:00 02/28/19 04:05 Sodium Chloride IV 333.333 mls/hr Q12H MANISH Administration Cefepime HCl 2 gm in 100 mls @ 200 mls/hr 02/27/19 20:00 02/28/19 04:00 Cefepime/Ns 2 Gm/100 Ml IV 200 mls/hr Q8H MANISH Administration Protocol Methylprednisolone Sodium Succinate 125 mg 02/27/19 22:00 02/28/19 05:57 Solu-Medrol IV Not Given Q8HR MANISH
[2019-02-28] MEDS: IPRATROPIUM/ALBUTEROL SULFATE 3 ML AMPUL.NEB IH SCH ×3 (09:08→21:24)
[2019-02-28 10:29] LABS: Hematocrit 26.7 % (30.3-42.9); Hemoglobin 8.1 gm/dl (10.1-14.3); Mean Corpuscular HGB Conc 30 % (30-34); Mean Corpuscular Volume 79 fl (79-97); Platelet Count 433 K/mm3 (140-440); Red Blood Count 3.39 M/mm3 (3.65-5.03)
[2019-02-28 10:30] LABS: Red Cell Distribution Width 22.5 % (13.2-15.2)
--- NOTE | 2019-02-28 10:31 | Consultation ---
History of Present Illness Consult date: 02/28/19 Requesting physician: SATNAM TO Reason for consult: other (Acute hypoxic-hypercapnic respiratory failure; Right pleural effusion: Stage 4 breast cancer) History of present illness: HISTORY PER ED Is a 49-year-old female was transferred for from her chest surgeon's office for respiratory distress. I spoke with Dr. Self who told me that they have been trying to get the family to take the patient to the emergency department for the last 3 days but they have refused. Today she presented in respiratory distress and was transferred here via EMS. EMS placed patient on supplemental oxygen but did not initiate airway assist. The patient arrives somnolent with pulse oximetry in the mid 70s despite oxygen. She was switched to an Ambu bag with assist as needed pending placement on BiPAP. Patient is not able to provide any history. The patient appears to have a port in her right chest. She could not confirm this. She could not tell me if she had been prior intubated or transfused. She looked extremely pale. She has obvious anasarca and full-thickness wounds on her anterior chest. She could not tell me if she wanted to be placed on a machine. She has a history of "stage IV breast cancer". She's had recent thoracentesis 2. According to her she was discharged from the hospital "2 Mondays ago". He is expressing dissatisfaction with prior care. I asked him if any doctor has previously discussed the patient's resuscitation status or plan for care. He denies this. He expressed dissatisfaction to the nursing staff for me to even mention this. I did explain to him that the patient was in dire condition when she arrived. She required noninvasive positive pressure ventilation and I placed a central line. He was obviously non-receptive to giving healthcare surrogate advice on the patient's resuscitative status. Indeed he later asked me not to speak about it again in front of the patient. The patient was somnolent on arrival and certainly incapable of making medical decisions. She did not even have the capacity to answer simple questions. Patient was admitted to the ICU for acute hypoxic-hypercapnic respiratory failure and I have been consulted for critical care management. Thank you At the time I saw her in the ICU, she was on BIPAP in moderate respiratory d istress . Her daughters were at the bedside. Patient was seen and examined. Vitals, labs, medications, chart and imaging were reviewed. She is able to give a history and is coherent. This is a 49 year old lady with unfortunate advanced Stage IV left breast cancer with metastasis to the lungs. 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 During her immediate postop hosp stay, she was in respiratory distress and we were consulted at that time. She underwent left thoracentesis with malignant cytology. She was then admitted later that week after discharge for wound care- noncompliance and low grade temp of 100.4 and was discharged home with wound care instructions and followup. She was just discharged last week after complaints that her wound vac fell of. She states she has had progressively worsening shortness of breath, no fevers or chills. No hemoptysis, no cough. No nausea or vomiting - Past Medical History Hx Hypertension: Yes Hx Kidney Stones: Yes (PASSED WITH NO INTERVENTION) Hx Asthma: No Hx HIV: No - Surgical History Hx Breast Surgery: Yes (Left breast) Additional Surgical History: Left wrist tumor. right chest port - Social History Smoking Status: Never Smoker Medications and Allergies Allergies Allergy/AdvReac Type Severity Reaction Status Date / Time aspirin AdvReac GI Upset Verified 01/28/19 12:25 Home Medications Medication Instructions Recorded Confirmed Last Taken Type amLODIPine 5 mg PO DAILY 01/27/19 02/27/19 02/15/19 10:00 History Albuterol Sulfate [Proventil Hfa] 6.7 gm IH Q6H PRN #1 can 02/11/19 02/27/19 02/15/19 15:00 Rx Clindamycin [Clindamycin CAP] 300 mg PO Q8H #21 cap 02/11/19 02/27/19 02/15/19 10:00 Rx oxyCODONE [roxiCODONE] 10 mg PO Q6HR PRN 02/15/19 02/27/19 Unknown History Budesonide/Formoterol Fumarate 2 puff IH BID #1 hfa.aer.ad 02/19/19 02/27/19 Unknown Rx [Symbicort 160-4.5 Mcg Inhaler] HYDROcodone/APAP 10-325 [[place] 1 each PO Q6HR PRN #30 tablet 02/19/19 02/27/19 Unknown Rx 10/325] cephALEXin [Keflex] 500 mg PO Q6HR #40 capsule 02/19/19 02/27/19 Unknown Rx Active Meds: Active Medications Albuterol (Proventil) 2.5 mg IH Q4HRT PRN PRN Reason: Shortness Of Breath Albuterol/Ipratropium (Duoneb *Not For Prn Use*) 1 ampul IH TIDRT [facility] Last Admin: 02/28/19 09:08 Dose: 1 ampul Documented by: Enoxaparin Sodium (Enoxaparin) 40 mg SUB-Q QDAY@1000 [facility] Furosemide (Lasix) 40 mg IV 0600,1800 [facility] Last Admin: 02/28/19 05:57 Dose: Not Given Documented by: Hydromorphone HCl (Dilaudid) 0.5 mg IV Q3H PRN PRN Reason: pain Last Admin: 02/28/19 04:36 Dose: 0.5 mg Documented by: Vancomycin HCl 1,500 mg/ (Sodium Chloride) 530 mls @ 333.333 mls/hr IV Q12H [facility] Last Admin: 02/28/19 04:05 Dose: 333.333 mls/hr Documented by: Cefepime HCl (Cefepime/Ns 2 Gm/100 Ml) 2 gm in 100 mls @ 200 mls/hr IV Q8H [facility]; Protocol Last Admin: 02/28/19 04:00 Dose: 200 mls/hr Documented by: Methylprednisolone Sodium Succinate (Solu-Medrol) 40 mg IV Q8HR [facility] Review of Systems Constitutional: fatigue, weakness, no weight loss, no fever, no chills, no night sweats Breasts: other (breast cancer) Cardiovascular: shortness of breath, dyspnea on exertion, decreased exercise tolerance, no chest pain, no orthopnea, no syncope, no lightheadedness Respiratory: shortness of breath, dyspnea on exertion, no cough, no cough with sputum, no hemoptysis, no pain Gastrointestinal: no abdominal pain, no nausea, no vomiting, no diarrhea, no hematemesis, no heartburn Integumentary: other (chest wall wound) Neurological: no paralysis, no numbness, no seizures, no syncope, no headaches Physical Examination Vital signs: Vital Signs Pulse Ox 100 02/27/19 11:04 General appearance: alert, appears uncomfortable, other (moderate respiratory distress on BIPAP) Eyes: non-icteric ENT: other (unable to assess on BIPAP with full face mask) Neck: supple, no lymphadenopathy, no JVD, other (Left IJ CVC) Effort: very labored Ascultation: Bilateral: diminished breath sounds, rales Cardiovascular: other (Tachycardia S1,S2, no murmurs. Anterior chest wall dressing) Gastrointestinal: normoactive bowel sounds, soft, non-tender, non-distended Integumentary: other (Chest wall wound) Extremities: no cyanosis, pulses normal, other (edema) non-focal exam, motor strength normal and mood appropriate, anxious Results - Laboratory Findings CBC and BMP: 02/28/19 10:00 02/28/19 10:00 ABG POC ABG pH 7.361 (7.35-7.45) 02/27/19 18:08 POC ABG pCO2 68.8 (35-45) H 02/27/19 18:08 POC ABG pO2 225 (80-105) H 02/27/19 18:08 POC ABG HCO3 38.9 (22-26 mml/L) 02/27/19 18:08 POC ABG Total CO2 41 (23-27mmol/L) 02/27/19 18:08 POC ABG O2 Sat 100 02/27/19 18:08 PT/INR, D-dimer PT 14.8 Sec. (12.2-14.9) 02/27/19 12:38 INR 1.17 (0.87-1.13) H 02/27/19 12:38 D-Dimer 5778.32 ng/mlDDU (0-234) H 02/27/19 12:38 Abnormal lab findings: Abnormal Labs 02/27/19 02/27/19 02/27/19 11:33 11:33 11:33 WBC 18.6 H RBC 3.60 L Hgb 8.7 L Hct 28.8 L MCH 24 L RDW 23.0 H Plt Count 507 H Lymph % (Auto) 12.9 L [place] # 1.3 H Seg Neutrophils % 79.7 H Seg Neutrophils # 14.8 H INR D-Dimer POC ABG pH POC ABG pCO2 POC ABG pO2 Chloride 96.8 L BUN 28 H Creatinine 0.5 L Glucose 169 H POC Glucose Lactic Acid 3.40 H* AST Alkaline Phosphatase Total Creatine Kinase 197 H CK-MB (CK-2) 4.1 H Albumin Crossmatch 02/27/19 02/27/19 02/27/19 11:33 11:45 11:47 WBC RBC Hgb Hct MCH RDW Plt Count Lymph % (Auto) [place] # Seg Neutrophils % Seg Neutrophils # INR D-Dimer POC ABG pH POC ABG pCO2 POC ABG pO2 Chloride BUN Creatinine Glucose POC Glucose 169 H Lactic Acid AST 95 H Alkaline Phosphatase 130 H Total Creatine Kinase CK-MB (CK-2) Albumin 2.9 L Crossmatch See Detail 02/27/19 02/27/19 02/27/19 12:30 12:38 14:08 WBC RBC Hgb Hct MCH RDW Plt Count Lymph % (Auto) [place] # Seg Neutrophils % Seg Neutrophils # INR 1.17 H D-Dimer 5778.32 H POC ABG pH 7.326 L POC ABG pCO2 POC ABG pO2 129 H Chloride BUN Creatinine Glucose POC Glucose Lactic Acid 3.00 H* AST Alkaline Phosphatase Total Creatine Kinase CK-MB (CK-2) Albumin Crossmatch 02/27/19 02/27/19 02/27/19 15:03 16:06 18:08 WBC RBC Hgb Hct MCH RDW Plt Count Lymph % (Auto) [place] # Seg Neutrophils % Seg Neutrophils # INR D-Dimer POC ABG pH POC ABG pCO2 68.8 H POC ABG pO2 225 H Chloride BUN Creatinine Glucose POC Glucose Lactic Acid 3.20 H* 2.80 H* AST Alkaline Phosphatase Total Creatine Kinase CK-MB (CK-2) Albumin Crossmatch 02/27/19 02/28/19 18:12 10:00 WBC 13.3 H RBC 3.39 L Hgb 8.1 L Hct 26.7 L MCH 24 L RDW 22.5 H Plt Count Lymph % (Auto) [place] # Seg Neutrophils % Seg Neutrophils # INR D-Dimer POC ABG pH POC ABG pCO2 POC ABG pO2 Chloride BUN Creatinine Glucose POC Glucose Lactic Acid 2.30 H* AST Alkaline Phosphatase Total Creatine Kinase CK-MB (CK-2) Albumin Crossmatch - Diagnostic Findings Chest x-ray: image reviewed (Large right pleural effusion, left infiltrates suggestive of edema/pneumonia) Assessment and Plan Acute hypoxemic-hypercapnic respiratory failure Sepsis, possible from left lung pneumonia Right pleural effusion Metastatic breast cancer Hypernatremia Poor medical compliance Obesity -Continue with BIPAP -Get follow up ABG -VTE prophylaxis- Lovenox -Supplemental oxygen to keep O2 sats 90-92% -IR for right thoracentesis- will need pleurx on discharge with history of poor medical compliance -Wound car consult -Free water orally and hypotonic solutions -NPO for now, once respiratory status improves, can start eating -Gentle diuresis while monitoring hemodynamics, electrolyte profile and renal function -Bronchodilators for symptom management and per protocol -Steroids for airway inflammation, short course -Cefepime for possible HAP -Lawson catheter in this critically ill patient on diuresis Plan to discontinue lawson tomorrow. -Follow up BMP and CBC in the morning Extensive goals of care discussion with the patient. At this time she wants to remain full cardiopulmonary resuscitation in the event of cardiopulmonary arrest. Discussed extensively in ICU-IDT rounds Discussed with Dr. To Hospice consult placed CONDITION: CRITICAL PROGNOSIS: GUARDED-POOR CODE STATUS: FULL CODE The high probability of a clinically significant, sudden or life-threatening deterioration of the [respiratory] system(s) required my full and direct attention, intervention and personal management. The aggregate critical care time was [35] minutes without overlap. Time includes spent on; [x] Data Review and interpretation [x] Patient assessment and monitoring of vital signs [x] Documentation [x] Medication orders and management
[2019-02-28 10:46] LABS: Alanine Aminotransferase 30 units/L (7-56); Albumin 2.6 g/dL (3.9-5); BUN/Creatinine Ratio 64; Blood Urea Nitrogen 32 mg/dL (7-17); Calcium 9.3 mg/dL (8.4-10.2); Hemolysis Index 0
--- NOTE | 2019-02-28 11:18 | Consultation ---
History of Present Illness - Reason for Consult Consult date: 02/28/19 Pleural fluid - History of Present Illness Patient with history of stage IV breast cancer, open left chest wound who presen ts with worsening shortness of breath and an elevated white count. Her initial chest x-ray demonstrates significant bilateral airspace disease is progressed since her prior visit. Past History Past Medical History: cancer Medications and Allergies Allergies Allergy/AdvReac Type Severity Reaction Status Date / Time aspirin AdvReac GI Upset Verified 01/28/19 12:25 Home Medications Medication Instructions Recorded Confirmed Last Taken Type amLODIPine 5 mg PO DAILY 01/27/19 02/27/19 02/15/19 10:00 History Albuterol Sulfate [Proventil Hfa] 6.7 gm IH Q6H PRN #1 can 02/11/19 02/27/19 02/15/19 15:00 Rx Clindamycin [Clindamycin CAP] 300 mg PO Q8H #21 cap 02/11/19 02/27/19 02/15/19 10:00 Rx oxyCODONE [roxiCODONE] 10 mg PO Q6HR PRN 02/15/19 02/27/19 Unknown History Budesonide/Formoterol Fumarate 2 puff IH BID #1 hfa.aer.ad 02/19/19 02/27/19 Unknown Rx [Symbicort 160-4.5 Mcg Inhaler] HYDROcodone/APAP 10-325 [[place] 1 each PO Q6HR PRN #30 tablet 02/19/19 02/27/19 Unknown Rx 10/325] cephALEXin [Keflex] 500 mg PO Q6HR #40 capsule 02/19/19 02/27/19 Unknown Rx Active Meds: Active Medications Albuterol (Proventil) 2.5 mg IH Q4HRT PRN PRN Reason: Shortness Of Breath Albuterol/Ipratropium (Duoneb *Not For Prn Use*) 1 ampul IH TIDRT [facility] Last Admin: 02/28/19 09:08 Dose: 1 ampul Documented by: Enoxaparin Sodium (Enoxaparin) 40 mg SUB-Q QDAY@1000 [facility] Furosemide (Lasix) 40 mg IV 0600,1800 [facility] Last Admin: 02/28/19 05:57 Dose: Not Given Documented by: Hydromorphone HCl (Dilaudid) 0.5 mg IV Q3H PRN PRN Reason: pain Last Admin: 02/28/19 04:36 Dose: 0.5 mg Documented by: Vancomycin HCl 1,500 mg/ (Sodium Chloride) 530 mls @ 333.333 mls/hr IV Q12H [facility] Last Admin: 02/28/19 04:05 Dose: 333.333 mls/hr Documented by: Cefepime HCl (Cefepime/Ns 2 Gm/100 Ml) 2 gm in 100 mls @ 200 mls/hr IV Q8H [facility]; Protocol Last Admin: 02/28/19 04:00 Dose: 200 mls/hr Documented by: Methylprednisolone Sodium Succinate (Solu-Medrol) 40 mg IV Q8HR [facility] Review of Systems All systems: negative Exam - Constitutional Vitals: Temp Pulse Resp BP Pulse Ox 98 F 109 H 35 H 127/72 98 02/28/19 08:49 02/28/19 10:17 02/28/19 10:17 02/28/19 10:17 02/28/19 10:17 General appearance: Present: mild distress - EENT Eyes: Present: EOM intact ENT: hearing intact - Neck Neck: Present: supple - Respiratory Respiratory effort: labored - Abdominal General gastrointestinal: Present: deferred Female genitourinary: Present: deferred - Rectal Rectal Exam: deferred - Psychiatric Psychiatric: cooperative Results - Labs CBC & Chem 7: 02/28/19 10:00 02/28/19 10:00 Labs: Abnormal lab results 02/27/19 02/27/19 02/27/19 Range/Units 11:33 11:33 11:33 WBC 18.6 H (4.5-11.0) K/mm3 RBC 3.60 L (3.65-5.03) M/mm3 Hgb 8.7 L (10.1-14.3) gm/dl Hct 28.8 L (30.3-42.9) % MCH 24 L (28-32) pg RDW 23.0 H (13.2-15.2) % Plt Count 507 H (140-440) K/mm3 Lymph % (Auto) 12.9 L (13.4-35.0) % Harper # 1.3 H (0.0-0.8) K/mm3 Seg Neutrophils % 79.7 H (40.0-70.0) % Seg Neutrophils # 14.8 H (1.8-7.7) K/mm3 INR (0.87-1.13) D-Dimer (0-234) ng/mlDDU POC ABG pH (7.35-7.45) POC ABG pCO2 (35-45) POC ABG pO2 (80-105) Sodium (137-145) mmol/L Chloride 96.8 L (98-107) mmol/L Carbon Dioxide (22-30) mmol/L BUN 28 H (7-17) mg/dL Creatinine 0.5 L (0.7-1.2) mg/dL Glucose 169 H (65-100) mg/dL POC Glucose (70-105) Lactic Acid 3.40 H* (0.7-2.0) mmol/L AST (5-40) units/L Alkaline Phosphatase (35-129) units/L Total Creatine Kinase 197 H (30-135) units/L CK-MB (CK-2) 4.1 H (0.0-4.0) ng/mL Albumin (3.9-5) g/dL Crossmatch 02/27/19 02/27/19 02/27/19 Range/Units 11:33 11:45 11:47 WBC (4.5-11.0) K/mm3 RBC (3.65-5.03) M/mm3 Hgb (10.1-14.3) gm/dl Hct (30.3-42.9) % MCH (28-32) pg RDW (13.2-15.2) % Plt Count (140-440) K/mm3 Lymph % (Auto) (13.4-35.0) % Harper # (0.0-0.8) K/mm3 Seg Neutrophils % (40.0-70.0) % Seg Neutrophils # (1.8-7.7) K/mm3 INR (0.87-1.13) D-Dimer (0-234) ng/mlDDU POC ABG pH (7.35-7.45) POC ABG pCO2 (35-45) POC ABG pO2 (80-105) Sodium (137-145) mmol/L Chloride (98-107) mmol/L Carbon Dioxide (22-30) mmol/L BUN (7-17) mg/dL Creatinine (0.7-1.2) mg/dL Glucose (65-100) mg/dL POC Glucose 169 H (70-105) Lactic Acid (0.7-2.0) mmol/L AST 95 H (5-40) units/L Alkaline Phosphatase 130 H (35-129) units/L Total Creatine Kinase (30-135) units/L CK-MB (CK-2) (0.0-4.0) ng/mL Albumin 2.9 L (3.9-5) g/dL Crossmatch See Detail 02/27/19 02/27/19 02/27/19 Range/Units 12:30 12:38 14:08 WBC (4.5-11.0) K/mm3 RBC (3.65-5.03) M/mm3 Hgb (10.1-14.3) gm/dl Hct (30.3-42.9) % MCH (28-32) pg RDW (13.2-15.2) % Plt Count (140-440) K/mm3 Lymph % (Auto) (13.4-35.0) % Harper # (0.0-0.8) K/mm3 Seg Neutrophils % (40.0-70.0) % Seg Neutrophils # (1.8-7.7) K/mm3 INR 1.17 H (0.87-1.13) D-Dimer 5778.32 H (0-234) ng/mlDDU POC ABG pH 7.326 L (7.35-7.45) POC ABG pCO2 (35-45) POC ABG pO2 129 H (80-105) Sodium (137-145) mmol/L Chloride (98-107) mmol/L Carbon Dioxide (22-30) mmol/L BUN (7-17) mg/dL Creatinine (0.7-1.2) mg/dL Glucose (65-100) mg/dL POC Glucose (70-105) Lactic Acid 3.00 H* (0.7-2.0) mmol/L AST (5-40) units/L Alkaline Phosphatase (35-129) units/L Total Creatine Kinase (30-135) units/L CK-MB (CK-2) (0.0-4.0) ng/mL Albumin (3.9-5) g/dL Crossmatch 02/27/19 02/27/19 02/27/19 Range/Units 15:03 16:06 18:08 WBC (4.5-11.0) K/mm3 RBC (3.65-5.03) M/mm3 Hgb (10.1-14.3) gm/dl Hct (30.3-42.9) % MCH (28-32) pg RDW (13.2-15.2) % Plt Count (140-440) K/mm3 Lymph % (Auto) (13.4-35.0) % Harper # (0.0-0.8) K/mm3 Seg Neutrophils % (40.0-70.0) % Seg Neutrophils # (1.8-7.7) K/mm3 INR (0.87-1.13) D-Dimer (0-234) ng/mlDDU POC ABG pH (7.35-7.45) POC ABG pCO2 68.8 H (35-45) POC ABG pO2 225 H (80-105) Sodium (137-145) mmol/L Chloride (98-107) mmol/L Carbon Dioxide (22-30) mmol/L BUN (7-17) mg/dL Creatinine (0.7-1.2) mg/dL Glucose (65-100) mg/dL POC Glucose (70-105) Lactic Acid 3.20 H* 2.80 H* (0.7-2.0) mmol/L AST (5-40) units/L Alkaline Phosphatase (35-129) units/L Total Creatine Kinase (30-135) units/L CK-MB (CK-2) (0.0-4.0) ng/mL Albumin (3.9-5) g/dL Crossmatch 02/27/19 02/28/19 02/28/19 Range/Units 18:12 10:00 10:00 WBC 13.3 H (4.5-11.0) K/mm3 RBC 3.39 L (3.65-5.03) M/mm3 Hgb 8.1 L (10.1-14.3) gm/dl Hct 26.7 L (30.3-42.9) % MCH 24 L (28-32) pg RDW 22.5 H (13.2-15.2) % Plt Count (140-440) K/mm3 Lymph % (Auto) (13.4-35.0) % Harper # (0.0-0.8) K/mm3 Seg Neutrophils % (40.0-70.0) % Seg Neutrophils # (1.8-7.7) K/mm3 INR (0.87-1.13) D-Dimer (0-234) ng/mlDDU POC ABG pH (7.35-7.45) POC ABG pCO2 (35-45) POC ABG pO2 (80-105) Sodium 146 H (137-145) mmol/L Chloride (98-107) mmol/L Carbon Dioxide 32 H (22-30) mmol/L BUN 32 H (7-17) mg/dL Creatinine 0.5 L (0.7-1.2) mg/dL Glucose 111 H (65-100) mg/dL POC Glucose (70-105) Lactic Acid 2.30 H* (0.7-2.0) mmol/L AST 93 H (5-40) units/L Alkaline Phosphatase (35-129) units/L Total Creatine Kinase (30-135) units/L CK-MB (CK-2) (0.0-4.0) ng/mL Albumin 2.6 L (3.9-5) g/dL Crossmatch 02/28/19 Range/Units 10:26 WBC (4.5-11.0) K/mm3 RBC (3.65-5.03) M/mm3 Hgb (10.1-14.3) gm/dl Hct (30.3-42.9) % MCH (28-32) pg RDW (13.2-15.2) % Plt Count (140-440) K/mm3 Lymph % (Auto) (13.4-35.0) % Harper # (0.0-0.8) K/mm3 Seg Neutrophils % (40.0-70.0) % Seg Neutrophils # (1.8-7.7) K/mm3 INR (0.87-1.13) D-Dimer (0-234) ng/mlDDU POC ABG pH (7.35-7.45) POC ABG pCO2 54.2 H (35-45) POC ABG pO2 (80-105) Sodium (137-145) mmol/L Chloride (98-107) mmol/L Carbon Dioxide (22-30) mmol/L BUN (7-17) mg/dL Creatinine (0.7-1.2) mg/dL Glucose (65-100) mg/dL POC Glucose (70-105) Lactic Acid (0.7-2.0) mmol/L AST (5-40) units/L Alkaline Phosphatase (35-129) units/L Total Creatine Kinase (30-135) units/L CK-MB (CK-2) (0.0-4.0) ng/mL Albumin (3.9-5) g/dL Crossmatch - Imaging and Cardiology Chest x-ray: report reviewed, image reviewed Assessment and Plan Patient with diffuse bilateral airspace disease. We'll obtain a CT of the chest to determine if there is any pleural fluid. If there is, would recommend thoracentesis. Given patient's infectious picture, would not recommend placing a chest tube in the patient at this time.
--- NOTE | 2019-02-28 13:11 | History and Physical Report ---
History of Present Illness Date of examination: 02/28/19 Date of admission: 02/27/19 14:46 History of present illness: 49 yo F PMHx metastatic breast cancer s/p recent mastectomy for ulcerate wound (surgery 01/30/14) admitted for worsening shortness of breath. She notes these symptoms began approximately 3 days prior to admission. Notable to this is that the patient was admitted in late January for similar complaints secondary to a pleural effusion, and was discharged after a thoracentesis. After her mastectomy she was left with a large chest wall defect, and had initially been doing a wound vac, however that was discontinued due to discomfort. She otherwise denies any fevers, sweats, chills. Afebrile, but tachycardic and leukocytosis of 13.3. Currently recently vancomycin and cefepime. Cultures are negative thus far. Imaging personally reviewed: CXR: extensive pulmnary edema vs pneumonia. Significantly worse since last exam. Review of systems: Bold if positive; otherwise negative GENERAL: fever, chills, weight loss, fatigue, night sweats EYES: blurry vision, eye pain HENT: headache, hearing loss, sore throat, dysphagia, sinus pain CARDIO: chest pain, palpitations, orthopnea PULM: shortness of breath, wheezing, cough, sputum, hemoptysis GI: nausea, vomiting, diarrhea, abdominal pain, blood in stool : urinary frequency, urgency, dysuria, urethral discharge MSK: joint pain, back pain, swelling SKIN: rash, redness HEME: easy bruising, bleeding Past History Past Medical History: cancer Past Surgical History: Other (Mastectomy) Social history: no significant social history Family history: hypertension Medications and Allergies Allergies Allergy/AdvReac Type Severity Reaction Status Date / Time aspirin AdvReac GI Upset Verified 01/28/19 12:25 Home Medications Medication Instructions Recorded Confirmed Last Taken Type amLODIPine 5 mg PO DAILY 01/27/19 02/27/19 02/15/19 10:00 History Albuterol Sulfate [Proventil Hfa] 6.7 gm IH Q6H PRN #1 can 02/11/19 02/27/19 02/15/19 15:00 Rx Clindamycin [Clindamycin CAP] 300 mg PO Q8H #21 cap 02/11/19 02/27/19 02/15/19 10:00 Rx oxyCODONE [roxiCODONE] 10 mg PO Q6HR PRN 02/15/19 02/27/19 Unknown History Budesonide/Formoterol Fumarate 2 puff IH BID #1 hfa.aer.ad 02/19/19 02/27/19 Unk nown Rx [Symbicort 160-4.5 Mcg Inhaler] HYDROcodone/APAP 10-325 [[place] 1 each PO Q6HR PRN #30 tablet 02/19/19 02/27/19 Unknown Rx 10/325] cephALEXin [Keflex] 500 mg PO Q6HR #40 capsule 02/19/19 02/27/19 Unknown Rx Active Meds: Active Medications Albuterol (Proventil) 2.5 mg IH Q4HRT PRN PRN Reason: Shortness Of Breath Last Admin: 02/28/19 12:35 Dose: 2.5 mg Documented by: Albuterol/Ipratropium (Duoneb *Not For Prn Use*) 1 ampul IH TIDRT [facility] Last Admin: 02/28/19 09:08 Dose: 1 ampul Documented by: Enoxaparin Sodium (Enoxaparin) 40 mg SUB-Q QDAY@1000 MANISH Furosemide (Lasix) 40 mg IV 0600,1800 [facility] Last Admin: 02/28/19 05:57 Dose: Not Given Documented by: Hydromorphone HCl (Dilaudid) 0.5 mg IV Q3H PRN PRN Reason: pain Last Admin: 02/28/19 04:36 Dose: 0.5 mg Documented by: Vancomycin HCl 1,500 mg/ (Sodium Chloride) 530 mls @ 333.333 mls/hr IV Q12H [facility] Last Admin: 02/28/19 04:05 Dose: 333.333 mls/hr Documented by: Cefepime HCl (Cefepime/Ns 2 Gm/100 Ml) 2 gm in 100 mls @ 200 mls/hr IV Q8H [facility]; Protocol Last Admin: 02/28/19 04:00 Dose: 200 mls/hr Documented by: Methylprednisolone Sodium Succinate (Solu-Medrol) 40 mg IV Q8HR [facility] Physical Examination - Physical Exam Narrative exam: General Normal appearance, well developed, no acute distress Eyes - PERRLA, EOM intact ENT - Moist mucous membranes, no lymphadenopathy Neck - No noticeable or palpable swelling, redness or rash around throat or on face Lymph Nodes - No lymphadenopathy Cardiovascular - RRR no m/r/g, no JVD, no carotid bruits Lungs - Clear to auscultation, no use of accessory muscles, no crackles or wheezes. Skin - Large defect over L breast area. No obvious purulence. Abdomen - Normal bowel sounds, abdomen soft and nontender Extremities - No edema, cyanosis or clubbing Musculoskeletal - 5/5 strength, normal range of motion, no swollen or erythematous joints. Neurological Alert and oriented x 3, CN 2-12 grossly intact. - Constitutional Vitals: Vital Signs Temp Pulse Resp BP Pulse Ox 99.1 F 112 H 33 H 109/63 100 02/28/19 12:00 02/28/19 12:41 02/28/19 12:41 02/28/19 12:40 02/28/19 12:40 Temperature -Last 24 Hours Temperature 99.1 F Temperature 98 F Temperature 99.9 F Temperature 100.3 F Temperature 97.9 F Temperature 98.1 F Temperature 99.7 F Results - Labs CBC & Chem 7: 02/28/19 10:00 02/28/19 10:00 Labs: Abnormal lab results 02/27/19 02/27/19 02/27/19 Range/Units 11:47 12:38 14:08 WBC (4.5-11.0) K/mm3 RBC (3.65-5.03) M/mm3 Hgb (10.1-14.3) gm/dl Hct (30.3-42.9) % MCH (28-32) pg RDW (13.2-15.2) % INR 1.17 H (0.87-1.13) D-Dimer 5778.32 H (0-234) ng/mlDDU POC ABG pCO2 (35-45) POC ABG pO2 (80-105) Sodium (137-145) mmol/L Carbon Dioxide (22-30) mmol/L BUN (7-17) mg/dL Creatinine (0.7-1.2) mg/dL Glucose (65-100) mg/dL POC Glucose 169 H (70-105) Lactic Acid 3.00 H* (0.7-2.0) mmol/L AST (5-40) units/L Albumin (3.9-5) g/dL 11/07/19 11/07/19 11/07/19 Range/Units 15:03 16:06 18:08 WBC (4.5-11.0) K/mm3 RBC (3.65-5.03) M/mm3 Hgb (10.1-14.3) gm/dl Hct (30.3-42.9) % MCH (28-32) pg RDW (13.2-15.2) % INR (0.87-1.13) D-Dimer (0-234) ng/mlDDU POC ABG pCO2 68.8 H (35-45) POC ABG pO2 225 H (80-105) Sodium (137-145) mmol/L Carbon Dioxide (22-30) mmol/L BUN (7-17) mg/dL Creatinine (0.7-1.2) mg/dL Glucose (65-100) mg/dL POC Glucose (70-105) Lactic Acid 3.20 H* 2.80 H* (0.7-2.0) mmol/L AST (5-40) units/L Albumin (3.9-5) g/dL 02/27/19 02/28/19 02/28/19 Range/Units 18:12 10:00 10:00 WBC 13.3 H (4.5-11.0) K/mm3 RBC 3.39 L (3.65-5.03) M/mm3 Hgb 8.1 L (10.1-14.3) gm/dl Hct 26.7 L (30.3-42.9) % MCH 24 L (28-32) pg RDW 22.5 H (13.2-15.2) % INR (0.87-1.13) D-Dimer (0-234) ng/mlDDU POC ABG pCO2 (35-45) POC ABG pO2 (80-105) Sodium 146 H (137-145) mmol/L Carbon Dioxide 32 H (22-30) mmol/L BUN 32 H (7-17) mg/dL Creatinine 0.5 L (0.7-1.2) mg/dL Glucose 111 H (65-100) mg/dL POC Glucose (70-105) Lactic Acid 2.30 H* (0.7-2.0) mmol/L AST 93 H (5-40) units/L Albumin 2.6 L (3.9-5) g/dL 02/28/19 Range/Units 10:26 WBC (4.5-11.0) K/mm3 RBC (3.65-5.03) M/mm3 Hgb (10.1-14.3) gm/dl Hct (30.3-42.9) % MCH (28-32) pg RDW (13.2-15.2) % INR (0.87-1.13) D-Dimer (0-234) ng/mlDDU POC ABG pCO2 54.2 H (35-45) POC ABG pO2 (80-105) Sodium (137-145) mmol/L Carbon Dioxide (22-30) mmol/L BUN (7-17) mg/dL Creatinine (0.7-1.2) mg/dL Glucose (65-100) mg/dL POC Glucose (70-105) Lactic Acid (0.7-2.0) mmol/L AST (5-40) units/L Albumin (3.9-5) g/dL Assessment and Plan Cultures Blood culture 02/27/19 no growth to date Urine culture 02/27/19 no growth to date Assessment: 49 yo F PMHx metastatic breast cancer admitted with worsening shortness of breath. 1. Acute sepsis - with tachycardia and leukocytosis. Likely secondary to pneumonia as wound looks good. 2. Pneumonia - difficult to tell with imaging. Agree with IR to obtain CT of the chest to help evaluate consolidation vs pleural effusion. Possible thora pending fluid levels. Given possibility of infection would send fluid for analysis and culture. 3. Large breast wound - no obvious purulence and family denies any issues with the wound at this time. Obvious risk for infection, but at present appears stable. 4. Metastatic breast cancer Recs: - stop vancomycin as wound looks good - continue cefepime as patient has been in and out of hospitals recently. - Agree with CT - If thoracentesis performed please send for analysis and culture. [facility] ([facility] M: [phone] O: [phone] F: [phone]
--- NOTE | 2019-02-28 14:33 | Event Note ---
Date: 02/28/19 This is a 49 year old lady with unfortunate advanced Stage IV left breast cancer with metastasis to the lungs. She's status post most recent surgery on 01/29/2019 left chest wall cancer ulcerative necrotic mass of 30 cm with 30x16 cm chest wall defect and wound vac placed. During her immeidate postop hosp stay she underwent left thoracentesis with maligant cytology. She was then admitted later that week after discharge for wound care-noncompliance and low grade temp of 100.4 and was discharged home with wound care instructions and followup. She was just discharged last week after complaints that her wound vac fell of. Most recently she was admitted yesterday in resp distress. Patient seen very quickly today as she's getting ready for CT chest for evaluation of her lungs for eval for pneumonia versus pl effusion and is being transported downstairs, she's currenly on bipap admitted to ICU team with ID and pulm consulted. Will follow along while pt is admitted, dressing changes to left chest daily by wound care. Plan with plastic surgery was skin graft after chest wall granulated well. Please call with questions [phone].
--- NOTE | 2019-02-28 15:16 | Cat Scan Report ---
CTA CHEST WITH IV CONTRAST INDICATION: worsening SOB. TECHNIQUE: Axial CT images were obtained through the chest after injection of 100 cc Omnipaque 350 IV contrast. 3 plane MIP reconstructions were produced. All CT scans at this location are performed using CT dose reduction for ALARA by means of automated exposure control. COMPARISON: CTA chest 02/02/2019 FINDINGS: PULMONARY ARTERIES: No pulmonary emboli. THORACIC AORTA: No acute abnormality. HEART: Normal. CORONARY ARTERIES: No significant calcification. PLEURA: Moderate right pleural effusion. Enhancing pleural-based soft tissue mass along the anterior aspect of the left chest wall measuring 1.8 x 7.9 cm image 45, previously measuring 1.9 x 4.0 cm imag e 59. No pneumothorax. LYMPH NODES: Moderate mediastinal and bilateral hilar and axillary adenopathy. LUNGS: Extensive bilateral pulmonary nodules and confluent bilateral pulmonary opacities characterist ic for pulmonary metastases and probable lymphangitic carcinomatosis has markedly progressed since pr evious study. ADDITIONAL FINDINGS: Postsurgical change from previous left mastectomy with skin thickening and assoc iated soft tissue mass. UPPER ABDOMEN: Numerous liver metastases have developed since the prior exam. Largest lesion within t he right anterior hepatic dome measures 5.2 cm image 83. New 2.2 cm left adrenal metastasis has devel oped on image 106. Multiple cholesterol containing gallstones, unchanged without CT evidence for chol ecystitis. SKELETAL STRUCTURES: Sclerosis within the body of sternum likely secondary to metastatic disease, unc hanged. IMPRESSION: 1. No CT evidence for pulmonary embolism. 2. Extensive mediastinal, bilateral hilar and axillary adenopathy has progressed. 3. extensive bilateral pulmonary metastases with probable development of extensive lymphangitic carci nomatosis has markedly progressed. 4. Extensive new liver metastases in left adrenal metastasis. 4. Cholelithiasis, unchanged. Signer Name: Jonatan Paulino MD Signed: 02/28/2019 3:12 PM Workstation Name: [id number]
--- NOTE | 2019-02-28 15:58 | Procedure Note ---
Date of procedure: 02/28/19 Pre-op diagnosis: right pleural effusion, breast ca Post-op diagnosis: same Procedure: US thoracentesis, right Findings: moderae right pleural effusion Anesthesia: local Surgeon: CHERIE CROCKER Estimated blood loss: none Pathology: list (120cc) Specimen disposition: to lab Condition: stable Disposition: floor
--- NOTE | 2019-02-28 16:01 | Ultrasound Report ---
. Ultrasound-guided thoracentesis HISTORY: right pleural effusion. COMPARISON: None PROCEDURE: The risks (including but not limited to bleeding, infection, and pneumothorax) and benefi ts were explained to the patient and informed consent was obtained. A time out procedure was perform ed. Ultrasound was used to evaluate the right pleural effusion and locate the optimal site for needle ent ry. Once the skin was marked, the procedure site was prepped and draped in the usual sterile fashion and lidocaine was used for local anesthesia. A skin argelia was made and a 6-Arabic thoracentesis cath eter was placed. The patient was monitored closely throughout the procedure, and a total of 1400 mL of cloudy yellow fluid was aspirated. Samples were sent to the lab [facility]. The patient tolerated the procedure well with no complications. A post-procedure chest x-ray was imm ediately ordered. IMPRESSION: Successful ultrasound-guided right thoracentesis. Signer Name: Kerwin Awad Jr, MD Signed: 02/28/2019 3:57 PM Workstation Name: [id number]
--- NOTE | 2019-02-28 18:21 | XRay Report ---
CHEST 1 VIEW INDICATION / CLINICAL INFORMATION: recent thora, right pl effusion. COMPARISON: 02/27/2019 FINDINGS: SUPPORT DEVICES: The left and right central venous catheters project over the superior vena cava HEART / MEDIASTINUM: No significant abnormality. LUNGS / PLEURA: Improvement of the interstitial and airspace opacities bilaterally. No pneumothorax. ADDITIONAL FINDINGS: No significant additional findings. IMPRESSION: 1. Improving bilateral lung disease Signer Name: Abimael Mcgowan MD Signed: 02/28/2019 6:17 PM Workstation Name: [id number]
[2019-02-28] MEDS: BENZONATATE 100 MG CAP PO SCH (22:39)
[2019-03-01] MEDS: HYDROmorphone 1 MG/1 ML INJ IV PRN (01:39)
[2019-03-01] MEDS: CEFEPIME/NS 2 GM/100 ML 2 GM/100 ML BAG IV SCH ×3 (03:36→20:50)
[2019-03-01 05:44] LABS: Hematocrit 29.9 % (30.3-42.9); Mean Corpuscular HGB Conc 30 % (30-34); Mean Corpuscular Volume 80 fl (79-97); Platelet Count 498 K/mm3 (140-440); Red Blood Count 3.73 M/mm3 (3.65-5.03)
[2019-03-01 06:06] LABS: BUN/Creatinine Ratio 72; Blood Urea Nitrogen 43 mg/dL (7-17); Calcium 9.7 mg/dL (8.4-10.2); Hemolysis Index 3
[2019-03-01 06:08] LABS: Red Cell Distribution Width 22.8 % (13.2-15.2)
[2019-03-01] MEDS: FUROSEMIDE 40 MG/4 ML INJ IV SCH ×2 (07:32→17:21)
[2019-03-01] MEDS: methylPREDNISolone Sod Succinate 125 MG/2 ML INJ IV SCH ×3 (07:32→22:35)
[2019-03-01] MEDS: BENZONATATE 100 MG CAP PO SCH ×3 (07:33→22:35)
[2019-03-01] MEDS: IPRATROPIUM/ALBUTEROL SULFATE 3 ML AMPUL.NEB IH SCH ×3 (07:49→21:23)
[2019-03-01] MEDS: ENOXAPARIN 40 MG/0.4 ML INJ SUB-Q SCH (10:47)
--- NOTE | 2019-03-01 11:09 | Progress Note ---
Assessment and Plan This is a 49 year old lady with advanced Stage IV left breast cancer with metastasis to the lungs. She's status post most recent surgery on 01/29/2019 left chest wall cancer ulcerative necrotic mass of 30 cm with 30x16 cm chest wall defect and wound vac placed. Admitted for worsening shortness of breath. She notes these symptoms began approximately 3 days prior to admission. Notable to this is that the patient was admitted in late January for similar complaints secondary to a pleural effusion, and was discharged after a thoracentesis. After her mastectomy she was left with a large chest wall defect, and had initially been on wound vac. However that was discontinued due to discomfort. Afebrile, but tachycardic and leukocytosis of 13.3. Currently recently vancomycin and cefepime. Cultures are negative thus far. - Acute resp failure with hypoxia edema versus pneumonia On Lasix On iv Abx Cefepime and vancomycin Pulmonology consulted Recently discharged from hospital about 1 week ago - Sepsis with leukocytosis, fever,tachy, lactic acidosis Blood cultures drawn - Bilateral opacities: pulmonary edema versus pneumonia On lasix and Antibiotics consult ID Physician - History of pleural effusion s/p thoracentesis recent - Left breast cancer s/p surgery Dr. Self following I discussed with her Wound nurse consult - Hypertension Monitor BP - ELevated D- dimer CT angio was negative - Full code status I discussed code status with at bedside. Subjective Date of service: 03/01/19 Principal diagnosis: Breast cancer with mets to the lungs, ac respr failure with hypoxia, pl. ef Interval history: Patient seen and examined. In bed on BiPAP. With obvious respiratory distress Objective - Exam Narrative Exam: Constitutional: Well-nourished well-developed. In respiratory distress. On nonrebreather Head: Normocephalic atraumatic Eyes: Pupils are equal round and reactive to light Nose: No enlarged turbinates, no septal deviation. Mouth: Moist mucous membranes. Neck: Supple no thyromegaly. No bruit. No JVD Heart: Regular rate and rhythm, S1-S2 normal. No rubs murmurs or gallop Lungs: Decreased breath sounds bilaterally with rales Abdomen: Soft, nontender. Bowel sound are present. Extremities: Left upper extremity edema, cyanosis, no clubbing. Neuro: Lethargic Skin: No rashes or hyperpigmented spots Musculoskeletal system: No joint pain or swelling Hematological: No petechia or subcutanous hemorrhages. Immunological: No multiple septic spots on the skin Lymphatic: No generalized lymphadenopathy Psychiatry: Lethargic - Constitutional Vitals: Vital Signs - 12hr 02/28/19 02/28/19 02/28/19 23:11 23:21 23:31 Temperature Pulse Rate 99 H 98 H 99 H Pulse Rate [ Anterior Throughout] Pulse Rate [ Posterior Bilateral Throughout] Pulse Rate [ Radial] Respiratory 20 17 18 Rate Respiratory Rate [Anterior Throughout] Respiratory Rate [Posterior Bilateral Throughout] Blood Pressure 127/74 127/74 127/74 O2 Sat by Pulse 98 99 97 Oximetry 02/28/19 02/28/19 02/28/19 23:36 23:41 23:51 Temperature 97.4 F L Pulse Rate 84 105 H Pulse Rate [ Anterior Throughout] Pulse Rate [ Posterior Bilateral Throughout] Pulse Rate [ Radial] Respiratory 15 20 Rate Respiratory Rate [Anterior Throughout] Respiratory Rate [Posterior Bilateral Throughout] Blood Pressure 127/74 127/74 O2 Sat by Pulse 96 97 Oximetry 03/01/19 03/01/19 03/01/19 00:00 00:01 00:11 Temperature Pulse Rate 110 H 102 H Pulse Rate [ Anterior Throughout] Pulse Rate [ Posterior Bilateral Throughout] Pulse Rate [ 112 H Radial] Respiratory 22 24 23 Rate Respiratory Rate [Anterior Throughout] Respiratory Rate [Posterior Bilateral Throughout] Blood Pressure 142/76 142/76 O2 Sat by Pulse 100 96 98 Oximetry 03/01/19 03/01/19 03/01/19 00:21 00:31 00:41 Temperature Pulse Rate 110 H 101 H 111 H Pulse Rate [ Anterior Throughout] Pulse Rate [ Posterior Bilateral Throughout] Pulse Rate [ Radial] Respiratory 19 19 18 Rate Respiratory Rate [Anterior Throughout] Respiratory Rate [Posterior Bilateral Throughout] Blood Pressure 142/76 142/76 142/76 O2 Sat by Pulse 99 100 100 Oximetry 03/01/19 03/01/19 03/01/19 00:51 00:57 01:00 Temperature Pulse Rate 101 H 102 H Pulse Rate [ Anterior Throughout] Pulse Rate [ Posterior Bilateral Throughout] Pulse Rate [ Radial] Respiratory 17 18 Rate Respiratory Rate [Anterior Throughout] Respiratory Rate [Posterior Bilateral Throughout] Blood Pressure 142/76 133/64 O2 Sat by Pulse 100 100 98 Oximetry 03/01/19 03/01/19 03/01/19 01:11 01:21 01:31 Temperature Pulse Rate 98 H 93 H 106 H Pulse Rate [ Anterior Throughout] Pulse Rate [ Posterior Bilateral Throughout] Pulse Rate [ Radial] Respiratory 18 18 21 Rate Respiratory Rate [Anterior Throughout] Respiratory Rate [Posterior Bilateral Throughout] Blood Pressure 133/64 133/64 133/64 O2 Sat by Pulse 99 98 98 Oximetry 03/01/19 03/01/19 03/01/19 01:41 01:51 02:00 Temperature Pulse Rate 95 H 85 101 H Pulse Rate [ Anterior Throughout] Pulse Rate [ Posterior Bilateral Throughout] Pulse Rate [ Radial] Respiratory 18 19 17 Rate Respiratory Rate [Anterior Throughout] Respiratory Rate [Posterior Bilateral Throughout] Blood Pressure 133/64 133/64 115/58 O2 Sat by Pulse 97 92 94 Oximetry 03/01/19 03/01/19 03/01/19 02:11 02:21 02:31 Temperature Pulse Rate 101 H 98 H 78 Pulse Rate [ Anterior Throughout] Pulse Rate [ Posterior Bilateral Throughout] Pulse Rate [ Radial] Respiratory 18 16 19 Rate Respiratory Rate [Anterior Throughout] Respiratory Rate [Posterior Bilateral Throughout] Blood Pressure 115/58 115/58 115/58 O2 Sat by Pulse 97 97 91 Oximetry 03/01/19 03/01/19 03/01/19 02:41 02:51 03:00 Temperature Pulse Rate 94 H 84 95 H Pulse Rate [ Anterior Throughout] Pulse Rate [ Posterior Bilateral Throughout] Pulse Rate [ Radial] Respiratory 25 H 19 27 H Rate Respiratory Rate [Anterior Throughout] Respiratory Rate [Posterior Bilateral Throughout] Blood Pressure 115/58 115/58 133/67 O2 Sat by Pulse 84 88 92 Oximetry 03/01/19 03/01/19 03/01/19 03:11 03:21 03:31 Temperature Pulse Rate 88 95 H 97 H Pulse Rate [ Anterior Throughout] Pulse Rate [ Posterior Bilateral Throughout] Pulse Rate [ Radial] Respiratory 21 18 20 Rate Respiratory Rate [Anterior Throughout] Respiratory Rate [Posterior Bilateral Throughout] Blood Pressure 133/67 133/67 133/67 O2 Sat by Pulse 92 93 91 Oximetry 03/01/19 03/01/19 03/01/19 03:40 03:41 03:51 Temperature 97.2 F L Pulse Rate 92 H 88 Pulse Rate [ Anterior Throughout] Pulse Rate [ Posterior Bilateral Throughout] Pulse Rate [ Radial] Respiratory 19 20 Rate Respiratory Rate [Anterior Throughout] Respiratory Rate [Posterior Bilateral Throughout] Blood Pressure 133/67 133/67 O2 Sat by Pulse 93 94 Oximetry 03/01/19 03/01/19 03/01/19 04:00 04:11 04:21 Temperature Pulse Rate 96 H 92 H 90 Pulse Rate [ Anterior Throughout] Pulse Rate [ Posterior Bilateral Throughout] Pulse Rate [ 112 H Radial] Respiratory 20 15 20 Rate Respiratory Rate [Anterior Throughout] Respiratory Rate [Posterior Bilateral Throughout] Blood Pressure 129/66 129/66 129/66 O2 Sat by Pulse 94 96 95 Oximetry 03/01/19 03/01/19 03/01/19 04:31 04:41 04:51 Temperature Pulse Rate 87 93 H 87 Pulse Rate [ Anterior Throughout] Pulse Rate [ Posterior Bilateral Throughout] Pulse Rate [ Radial] Respiratory 19 19 20 Rate Respiratory Rate [Anterior Throughout] Respiratory Rate [Posterior Bilateral Throughout] Blood Pressure 129/66 129/66 129/66 O2 Sat by Pulse 96 95 95 Oximetry 03/01/19 03/01/19 03/01/19 05:00 05:11 05:21 Temperature Pulse Rate 88 90 91 H Pulse Rate [ Anterior Throughout] Pulse Rate [ Posterior Bilateral Throughout] Pulse Rate [ Radial] Respiratory 17 22 24 Rate Respiratory Rate [Anterior Throughout] Respiratory Rate [Posterior Bilateral Throughout] Blood Pressure 127/66 127/66 127/66 O2 Sat by Pulse 95 93 92 Oximetry 03/01/19 03/01/19 03/01/19 05:22 05:31 05:41 Temperature Pulse Rate 93 H 85 91 H Pulse Rate [ Anterior Throughout] Pulse Rate [ Posterior Bilateral Throughout] Pulse Rate [ Radial] Respiratory 19 24 25 H Rate Respiratory Rate [Anterior Throughout] Respiratory Rate [Posterior Bilateral Throughout] Blood Pressure 127/66 127/66 127/66 O2 Sat by Pulse 92 91 92 Oximetry 03/01/19 03/01/19 03/01/19 05:51 06:00 06:11 Temperature Pulse Rate 87 96 H 102 H Pulse Rate [ Anterior Throughout] Pulse Rate [ Posterior Bilateral Throughout] Pulse Rate [ Radial] Respiratory 25 H 24 25 H Rate Respiratory Rate [Anterior Throughout] Respiratory Rate [Posterior Bilateral Throughout] Blood Pressure 127/66 126/79 126/79 O2 Sat by Pulse 93 90 93 Oximetry 03/01/19 03/01/19 03/01/19 06:21 06:31 06:41 Temperature Pulse Rate 112 H 105 H 109 H Pulse Rate [ Anterior Throughout] Pulse Rate [ Posterior Bilateral Throughout] Pulse Rate [ Radial] Respiratory 28 H 31 H 31 H Rate Respiratory Rate [Anterior Throughout] Respiratory Rate [Posterior Bilateral Throughout] Blood Pressure 126/79 126/79 126/79 O2 Sat by Pulse 92 93 89 Oximetry 03/01/19 03/01/19 03/01/19 06:51 07:01 07:11 Temperature Pulse Rate 110 H 89 99 H Pulse Rate [ Anterior Throughout] Pulse Rate [ Posterior Bilateral Throughout] Pulse Rate [ Radial] Respiratory 31 H 35 H 20 Rate Respiratory Rate [Anterior Throughout] Respiratory Rate [Posterior Bilateral Throughout] Blood Pressure 126/79 137/74 137/74 O2 Sat by Pulse 93 95 Oximetry 03/01/19 03/01/19 03/01/19 07:21 07:31 07:40 Temperature Pulse Rate 112 H 106 H Pulse Rate [ 94 H Anterior Throughout] Pulse Rate [ 91 H Posterior Bilateral Throughout] Pulse Rate [ Radial] Respiratory 31 H 29 H Rate Respiratory 23 Rate [Anterior Throughout] Respiratory 32 H Rate [Posterior Bilateral Throughout] Blood Pressure 137/74 137/74 O2 Sat by Pulse 92 Oximetry 03/01/19 03/01/19 03/01/19 07:41 07:51 08:00 Temperature Pulse Rate 109 H 93 H 107 H Pulse Rate [ Anterior Throughout] Pulse Rate [ Posterior Bilateral Throughout] Pulse Rate [ Radial] Respiratory 28 H 17 27 H Rate Respiratory Rate [Anterior Throughout] Respiratory Rate [Posterior Bilateral Throughout] Blood Pressure 137/74 137/74 139/74 O2 Sat by Pulse 91 95 97 Oximetry - Labs CBC & Chem 7: 03/01/19 05:00 03/01/19 05:00 Labs: Abnormal lab results 03/01/19 03/01/19 03/01/19 Range/Units 00:05 05:00 05:00 WBC 20.2 H (4.5-11.0) K/mm3 Hgb 9.0 L (10.1-14.3) gm/dl Hct 29.9 L (30.3-42.9) % MCH 24 L (28-32) pg RDW 22.8 H (13.2-15.2) % Plt Count 498 H (140-440) K/mm3 Sodium 148 H (137-145) mmol/L Carbon Dioxide 37 H (22-30) mmol/L BUN 43 H (7-17) mg/dL Creatinine 0.6 L (0.7-1.2) mg/dL Glucose 150 H (65-100) mg/dL POC Glucose 167 H (70-105)
--- NOTE | 2019-03-01 16:34 | Progress Note ---
Assessment and Plan Cultures Blood culture 02/27/19 no growth to date Urine culture 02/27/19 no growth to date Throacentesis culture 02/28/19 - no growth, no orgs on gram stain. Assessment: 49 yo F PMHx metastatic breast cancer admitted with worsening shortness of breath. 1. Acute sepsis - with tachycardia and leukocytosis. Likely secondary to pneumonia as wound looks good. 2. Pneumonia - difficult to tell with imaging. Agree with IR to obtain CT of the chest to help evaluate consolidation vs pleural effusion. Possible thora pending fluid levels. Given possibility of infection would send fluid for analysis and culture. 3. Large breast wound - no obvious purulence and family denies any issues with the wound at this time. Obvious risk for infection, but at present appears stable. 4. Metastatic breast cancer Recs: - stop vancomycin as wound looks good - continue cefepime as patient has been in and out of hospitals recently. - follow up cultures - increase in white count may be reactive to thoracentesis. Follow closely [facility] ([facility] M: [phone] O: [phone] F: [phone] Subjective Date of service: 03/01/19 Principal diagnosis: Breast cancer with mets to the lungs, ac respr failure with hypoxia, pl. ef Interval history: s/p thoracentesis yesterday. Breathing improved. Objective - Exam Narrative Exam: General Normal appearance, well developed, no acute distress Eyes - PERRLA, EOM intact ENT - Moist mucous membranes, no lymphadenopathy Neck - No noticeable or palpable swelling, redness or rash around throat or on face Lymph Nodes - No lymphadenopathy Cardiovascular - RRR no m/r/g, no JVD, no carotid bruits Lungs - Clear to auscultation, no use of accessory muscles, no crackles or wheezes. Skin - Large defect over L breast area. No obvious purulence. Abdomen - Normal bowel sounds, abdomen soft and nontender Extremities - No edema, cyanosis or clubbing Musculoskeletal - 5/5 strength, normal range of motion, no swollen or erythematous joints. Neurological Alert and oriented x 3, CN 2-12 grossly intact. - Constitutional Vitals: Vital Signs Temp Pulse Resp BP Pulse Ox 97.4 F L 89 27 H 131/72 93 03/01/19 12:00 03/01/19 15:21 03/01/19 15:21 03/01/19 15:21 03/01/19 15:21 Temperature -Last 24 Hours Temperature 97.4 F Temperature 98.2 F Temperature 97.2 F Temperature 97.4 F Temperature 97.8 F - Labs CBC & Chem 7: 03/01/19 05:00 03/01/19 05:00 Labs: Abnormal lab results 03/01/19 03/01/19 03/01/19 Range/Units 00:05 05:00 05:00 WBC 20.2 H (4.5-11.0) K/mm3 Hgb 9.0 L (10.1-14.3) gm/dl Hct 29.9 L (30.3-42.9) % MCH 24 L (28-32) pg RDW 22.8 H (13.2-15.2) % Plt Count 498 H (140-440) K/mm3 Sodium 148 H (137-145) mmol/L Carbon Dioxide 37 H (22-30) mmol/L BUN 43 H (7-17) mg/dL Creatinine 0.6 L (0.7-1.2) mg/dL Glucose 150 H (65-100) mg/dL POC Glucose 167 H (70-105)
--- NOTE | 2019-03-01 20:55 | Progress Note ---
Assessment and Plan Acute hypoxemic-hypercapnic respiratory failure Sepsis, possible from left lung pneumonia Right pleural effusion Metastatic breast cancer Hypernatremia Poor medical compliance Obesity - Continue with BIPAP scheduled qhs with prn daytime use - if decompensates will intubate if full CODE still desired - follow up ABG improved - continue supplemental oxygen to keep O2 sats 90-92% - s/p thoracentesis (1400 ml's drained) - Wound care consult - Free water orally and hypotonic solutions - NPO for now, once respiratory status improves, can start eating - Gentle diuresis while monitoring hemodynamics, electrolyte profile and renal function - Bronchodilators for symptom management and per protocol - Steroids for airway inflammation, short course - Cefepime for possible HAP - Mercado catheter in this critically ill patient on diuresis - Follow up BMP and CBC in the morning - Hospice consult placed - continue other care per attending / other consultants ...... care plan discussed with at bedside CONDITION: CRITICAL PROGNOSIS: GUARDED-POOR CODE STATUS: FULL CODE The high probability of a clinically significant, sudden or life-threatening deterioration of the [respiratory &n neurologic] system(s) required my full and direct attention, intervention and personal management. The aggregate critical care time was [35] minutes without overlap. Time includes spent on; [x] Data Review and interpretation [x] Patient assessment and monitoring of vital signs [x] Documentation [x] Medication orders and management Subjective Date of service: 03/01/19 Principal diagnosis: Breast cancer with mets to the lungs, ac respr failure with hypoxia, pl. ef Interval history: Patient is seen today for: Acute hypoxemic-hypercapnic respiratory failure; Sepsis, possible from left lung pneumonia; Right pleural effusion; Metastatic breast cancer; Hypernatremia; Poor medical compliance; Obesity Seen and examined at bedside; 24hour events reviewed; nursing and respiratory care staff consulted; no adverse overnight events reported to me; resting in bed; somnolent; work of breathing is increased; in room; s/p thoracentesis; tolerated BIPAP overnight; no emesis or overt aspiration Objective Vital Signs - 12hr 03/01/19 03/01/19 03/01/19 09:00 09:11 09:21 Temperature Pulse Rate 105 H 108 H 100 H Pulse Rate [ Anterior Throughout] Pulse Rate [ Apical] Pulse Rate [ Posterior Bilateral Throughout] Respiratory 24 24 30 H Rate Respiratory Rate [Anterior Throughout] Respiratory Rate [Posterior Bilateral Throughout] Blood Pressure 141/72 141/72 141/72 O2 Sat by Pulse 96 98 98 Oximetry 03/01/19 03/01/19 03/01/19 09:31 09:41 09:51 Temperature Pulse Rate 103 H 91 H 90 Pulse Rate [ Anterior Throughout] Pulse Rate [ Apical] Pulse Rate [ Posterior Bilateral Throughout] Respiratory 32 H 34 H 28 H Rate Respiratory Rate [Anterior Throughout] Respiratory Rate [Posterior Bilateral Throughout] Blood Pressure 141/72 141/72 141/72 O2 Sat by Pulse 96 88 93 Oximetry 03/01/19 03/01/19 03/01/19 10:00 10:11 10:21 Temperature Pulse Rate 88 91 H 92 H Pulse Rate [ Anterior Throughout] Pulse Rate [ Apical] Pulse Rate [ Posterior Bilateral Throughout] Respiratory 24 25 H 21 Rate Respiratory Rate [Anterior Throughout] Respiratory Rate [Posterior Bilateral Throughout] Blood Pressure 134/78 134/78 134/78 O2 Sat by Pulse 94 81 L 93 Oximetry 03/01/19 03/01/19 03/01/19 10:31 10:41 10:51 Temperature Pulse Rate 92 H 90 88 Pulse Rate [ Anterior Throughout] Pulse Rate [ Apical] Pulse Rate [ Posterior Bilateral Throughout] Respiratory 30 H 30 H 28 H Rate Respiratory Rate [Anterior Throughout] Respiratory Rate [Posterior Bilateral Throughout] Blood Pressure 134/78 134/78 134/78 O2 Sat by Pulse 94 94 93 Oximetry 03/01/19 03/01/19 03/01/19 11:00 11:10 11:21 Temperature Pulse Rate 95 H 57 L 88 Pulse Rate [ Anterior Throughout] Pulse Rate [ Apical] Pulse Rate [ Posterior Bilateral Throughout] Respiratory 26 H 25 H 23 Rate Respiratory Rate [Anterior Throughout] Respiratory Rate [Posterior Bilateral Throughout] Blood Pressure 146/68 146/68 146/68 O2 Sat by Pulse 89 87 95 Oximetry 03/01/19 03/01/19 03/01/19 11:31 11:41 11:51 Temperature Pulse Rate 89 90 108 H Pulse Rate [ Anterior Throughout] Pulse Rate [ Apical] Pulse Rate [ Posterior Bilateral Throughout] Respiratory 30 H 26 H 25 H Rate Respiratory Rate [Anterior Throughout] Respiratory Rate [Posterior Bilateral Throughout] Blood Pressure 146/68 146/68 146/68 O2 Sat by Pulse 96 96 97 Oximetry 03/01/19 03/01/19 03/01/19 12:00 12:11 12:21 Temperature 97.4 F L Pulse Rate 90 107 H 108 H Pulse Rate [ Anterior Throughout] Pulse Rate [ 90 Apical] Pulse Rate [ Posterior Bilateral Throughout] Respiratory 32 H 29 H 30 H Rate Respiratory Rate [Anterior Throughout] Respiratory Rate [Posterior Bilateral Throughout] Blood Pressure 133/71 133/71 133/71 O2 Sat by Pulse 98 98 97 Oximetry 03/01/19 03/01/19 03/01/19 12:31 12:41 12:51 Temperature Pulse Rate 97 H 97 H 102 H Pulse Rate [ Anterior Throughout] Pulse Rate [ Apical] Pulse Rate [ Posterior Bilateral Throughout] Respiratory 28 H 32 H 33 H Rate Respiratory Rate [Anterior Throughout] Respiratory Rate [Posterior Bilateral Throughout] Blood Pressure 133/71 133/71 133/71 O2 Sat by Pulse 87 95 96 Oximetry 03/01/19 03/01/19 03/01/19 13:00 13:11 13:21 Temperature Pulse Rate 106 H 110 H 102 H Pulse Rate [ Anterior Throughout] Pulse Rate [ Apical] Pulse Rate [ Posterior Bilateral Throughout] Respiratory 31 H 34 H 32 H Rate Respiratory Rate [Anterior Throughout] Respiratory Rate [Posterior Bilateral Throughout] Blood Pressure 143/71 143/71 143/71 O2 Sat by Pulse 97 96 97 Oximetry 03/01/19 03/01/19 03/01/19 13:31 13:41 13:51 Temperature Pulse Rate 94 H 99 H 98 H Pulse Rate [ Anterior Throughout] Pulse Rate [ Apical] Pulse Rate [ Posterior Bilateral Throughout] Respiratory 32 H 30 H 30 H Rate Respiratory Rate [Anterior Throughout] Respiratory Rate [Posterior Bilateral Throughout] Blood Pressure 143/71 143/71 143/71 O2 Sat by Pulse 96 97 96 Oximetry 03/01/19 03/01/19 03/01/19 14:00 14:11 14:21 Temperature Pulse Rate 109 H 95 H 92 H Pulse Rate [ Anterior Throughout] Pulse Rate [ Apical] Pulse Rate [ Posterior Bilateral Throughout] Respiratory 35 H 29 H 25 H Rate Respiratory Rate [Anterior Throughout] Respiratory Rate [Posterior Bilateral Throughout] Blood Pressure 153/78 153/78 153/78 O2 Sat by Pulse 97 95 95 Oximetry 03/01/19 03/01/19 03/01/19 14:31 14:40 14:41 Temperature Pulse Rate 105 H 102 H Pulse Rate [ 98 H Anterior Throughout] Pulse Rate [ Apical] Pulse Rate [ 90 Posterior Bilateral Throughout] Respiratory 35 H 33 H Rate Respiratory 34 H Rate [Anterior Throughout] Respiratory 32 H Rate [Posterior Bilateral Throughout] Blood Pressure 153/78 153/78 O2 Sat by Pulse 97 96 Oximetry 03/01/19 03/01/19 03/01/19 14:51 15:00 15:11 Temperature Pulse Rate 101 H 98 H 105 H Pulse Rate [ Anterior Throughout] Pulse Rate [ Apical] Pulse Rate [ Posterior Bilateral Throughout] Respiratory 32 H 33 H 37 H Rate Respiratory Rate [Anterior Throughout] Respiratory Rate [Posterior Bilateral Throughout] Blood Pressure 153/78 131/72 131/72 O2 Sat by Pulse 95 93 95 Oximetry 03/01/19 03/01/19 03/01/19 15:21 15:31 15:41 Temperature Pulse Rate 89 92 H 96 H Pulse Rate [ Anterior Throughout] Pulse Rate [ Apical] Pulse Rate [ Posterior Bilateral Throughout] Respiratory 27 H 33 H 29 H Rate Respiratory Rate [Anterior Throughout] Respiratory Rate [Posterior Bilateral Throughout] Blood Pressure 131/72 131/72 131/72 O2 Sat by Pulse 93 94 94 Oximetry 03/01/19 03/01/19 03/01/19 15:51 16:00 16:11 Temperature 98 F Pulse Rate 97 H 93 H 92 H Pulse Rate [ Anterior Throughout] Pulse Rate [ 90 Apical] Pulse Rate [ Posterior Bilateral Throughout] Respiratory 32 H 32 H 34 H Rate Respiratory Rate [Anterior Throughout] Respiratory Rate [Posterior Bilateral Throughout] Blood Pressure 131/72 134/67 134/67 O2 Sat by Pulse 94 95 94 Oximetry 03/01/19 03/01/19 03/01/19 16:20 16:30 16:40 Temperature Pulse Rate 95 H 94 H 90 Pulse Rate [ Anterior Throughout] Pulse Rate [ Apical] Pulse Rate [ Posterior Bilateral Throughout] Respiratory 33 H 34 H 36 H Rate Respiratory Rate [Anterior Throughout] Respiratory Rate [Posterior Bilateral Throughout] Blood Pressure 134/67 134/67 O2 Sat by Pulse 93 94 94 Oximetry 03/01/19 03/01/19 03/01/19 16:45 16:50 17:00 Temperature Pulse Rate 106 H 95 H 110 H Pulse Rate [ Anterior Throughout] Pulse Rate [ Apical] Pulse Rate [ Posterior Bilateral Throughout] Respiratory 34 H 33 H 27 H Rate Respiratory Rate [Anterior Throughout] Respiratory Rate [Posterior Bilateral Throughout] Blood Pressure 144/85 134/67 142/83 O2 Sat by Pulse 90 94 93 Oximetry 1103/01/19 03/01/19 17:10 17:20 17:30 Temperature Pulse Rate 96 H 90 91 H Pulse Rate [ Anterior Throughout] Pulse Rate [ Apical] Pulse Rate [ Posterior Bilateral Throughout] Respiratory 35 H 36 H 18 Rate Respiratory Rate [Anterior Throughout] Respiratory Rate [Posterior Bilateral Throughout] Blood Pressure 142/83 142/83 142/83 O2 Sat by Pulse 94 93 93 Oximetry 03/01/19 03/01/19 03/01/19 17:40 17:50 18:00 Temperature Pulse Rate 92 H 86 90 Pulse Rate [ Anterior Throughout] Pulse Rate [ Apical] Pulse Rate [ Posterior Bilateral Throughout] Respiratory 25 H 32 H 22 Rate Respiratory Rate [Anterior Throughout] Respiratory Rate [Posterior Bilateral Throughout] Blood Pressure 142/83 142/83 144/85 O2 Sat by Pulse 92 93 91 Oximetry 03/01/19 03/01/19 03/01/19 18:10 18:20 18:30 Temperature Pulse Rate 89 97 H 106 H Pulse Rate [ Anterior Throughout] Pulse Rate [ Apical] Pulse Rate [ Posterior Bilateral Throughout] Respiratory 27 H 28 H 32 H Rate Respiratory Rate [Anterior Throughout] Respiratory Rate [Posterior Bilateral Throughout] Blood Pressure 144/85 144/85 144/85 O2 Sat by Pulse 91 91 92 Oximetry 03/01/19 20:00 Temperature 98.2 F Pulse Rate Pulse Rate [ Anterior Throughout] Pulse Rate [ Apical] Pulse Rate [ Posterior Bilateral Throughout] Respiratory Rate Respiratory Rate [Anterior Throughout] Respiratory Rate [Posterior Bilateral Throughout] Blood Pressure O2 Sat by Pulse Oximetry Constitutional: alert, appears uncomfortable, other (middle aged obese AAF with mildly increased respiratory distress on Venti mask) Eyes: non-icteric ENT: oropharynx moist Neck: supple, no lymphadenopathy, no JVD, other (Left IJ CVC; large neck circumference) Effort: mildly labored Ascultation: Bilateral: diminished breath sounds, rales Percussion: Bilateral: not dull Cardiovascular: regular rate and rhythm, other (Tachycardia S1,S2, no murmurs. Anterior chest wall dressing) Gastrointestinal: normoactive bowel sounds, soft, non-tender, non-distended Integumentary: other (Chest wall wound) Extremities: no cyanosis, pulses normal, no ischemia or petechiae, edema, other (edema) Neurologic: non-focal exam (grossly), pupils equal and round, motor strength normal and, other (somnolent) Psychiatric: other (unable to assess re: AMS) CBC and BMP: 03/02/19 05:27 03/02/19 05:27 ABG, PT/INR, D-dimer: ABG POC ABG pH 7.430 (7.35-7.45) 02/28/19 10:26 POC ABG pCO2 54.2 (35-45) H 02/28/19 10:26 POC ABG pO2 83 (80-105) 02/28/19 10:26 POC ABG HCO3 36.0 (22-26 mml/L) 02/28/19 10:26 POC ABG Total CO2 38 (23-27mmol/L) 02/28/19 10:26 POC ABG O2 Sat 96 02/28/19 10:26 PT/INR, D-dimer PT 14.8 Sec. (12.2-14.9) 02/27/19 12:38 INR 1.17 (0.87-1.13) H 02/27/19 12:38 D-Dimer 5778.32 ng/mlDDU (0-234) H 02/27/19 12:38 Abnormal lab findings: Abnormal Labs 02/27/19 02/27/19 02/27/19 11:33 11:33 11:33 WBC 18.6 H RBC 3.60 L Hgb 8.7 L Hct 28.8 L MCH 24 L RDW 23.0 H Plt Count 507 H Lymph % (Auto) 12.9 L Churchill # 1.3 H Seg Neutrophils % 79.7 H Seg Neutrophils # 14.8 H INR D-Dimer POC ABG pH POC ABG pCO2 POC ABG pO2 Sodium Chloride 96.8 L Carbon Dioxide BUN 28 H Creatinine 0.5 L Glucose 169 H POC Glucose Lactic Acid 3.40 H* AST Alkaline Phosphatase Total Creatine Kinase 197 H CK-MB (CK-2) 4.1 H Albumin Crossmatch 02/27/19 02/27/19 02/27/19 11:33 11:45 11:47 WBC RBC Hgb Hct MCH RDW Plt Count Lymph % (Auto) Churchill # Seg Neutrophils % Seg Neutrophils # INR D-Dimer POC ABG pH POC ABG pCO2 POC ABG pO2 Sodium Chloride Carbon Dioxide BUN Creatinine Glucose POC Glucose 169 H Lactic Acid AST 95 H Alkaline Phosphatase 130 H Total Creatine Kinase CK-MB (CK-2) Albumin 2.9 L Crossmatch See Detail 02/27/19 02/27/19 02/27/19 12:30 12:38 14:08 WBC RBC Hgb Hct MCH RDW Plt Count Lymph % (Auto) Churchill # Seg Neutrophils % Seg Neutrophils # INR 1.17 H D-Dimer 5778.32 H POC ABG pH 7.326 L POC ABG pCO2 POC ABG pO2 129 H Sodium Chloride Carbon Dioxide BUN Creatinine Glucose POC Glucose Lactic Acid 3.00 H* AST Alkaline Phosphatase Total Creatine Kinase CK-MB (CK-2) Albumin Crossmatch 02/27/19 02/27/19 02/27/19 15:03 16:06 18:08 WBC RBC Hgb Hct MCH RDW Plt Count Lymph % (Auto) Churchill # Seg Neutrophils % Seg Neutrophils # INR D-Dimer POC ABG pH POC ABG pCO2 68.8 H POC ABG pO2 225 H Sodium Chloride Carbon Dioxide BUN Creatinine Glucose POC Glucose Lactic Acid 3.20 H* 2.80 H* AST Alkaline Phosphatase Total Creatine Kinase CK-MB (CK-2) Albumin Crossmatch 02/27/19 02/28/19 02/28/19 18:12 10:00 10:00 WBC 13.3 H RBC 3.39 L Hgb 8.1 L Hct 26.7 L MCH 24 L RDW 22.5 H Plt Count Lymph % (Auto) Churchill # Seg Neutrophils % Seg Neutrophils # INR D-Dimer POC ABG pH POC ABG pCO2 POC ABG pO2 Sodium 146 H Chloride Carbon Dioxide 32 H BUN 32 H Creatinine 0.5 L Glucose 111 H POC Glucose Lactic Acid 2.30 H* AST 93 H Alkaline Phosphatase Total Creatine Kinase CK-MB (CK-2) Albumin 2.6 L Crossmatch 02/28/19 03/01/19 03/01/19 10:26 00:05 05:00 WBC 20.2 H RBC Hgb 9.0 L Hct 29.9 L MCH 24 L RDW 22.8 H Plt Count 498 H Lymph % (Auto) Churchill # Seg Neutrophils % Seg Neutrophils # INR D-Dimer POC ABG pH POC ABG pCO2 54.2 H POC ABG pO2 Sodium Chloride Carbon Dioxide BUN Creatinine Glucose POC Glucose 167 H Lactic Acid AST Alkaline Phosphatase Total Creatine Kinase CK-MB (CK-2) Albumin Crossmatch 03/01/19 03/01/19 03/01/19 05:00 12:36 17:31 WBC RBC Hgb Hct MCH RDW Plt Count Lymph % (Auto) Churchill # Seg Neutrophils % Seg Neutrophils # INR D-Dimer POC ABG pH POC ABG pCO2 POC ABG pO2 Sodium 148 H Chloride Carbon Dioxide 37 H BUN 43 H Creatinine 0.6 L Glucose 150 H POC Glucose 140 H 157 H Lactic Acid AST Alkaline Phosphatase Total Creatine Kinase CK-MB (CK-2) Albumin Crossmatch Chest x-ray: image reviewed (improved RLL aereation; f=persistent diffuse bilateral infiltrates) CT scan - chest: image reviewed (significant pulmonary infiltration +/- lymphangitic carcinomatosis) Allied health notes reviewed: nursing
[2019-03-02] MEDS ORDERED: FUROSEMIDE 20 MG/2 ML INJ IV ONE (00:51)
[2019-03-02] MEDS ORDERED: ROCURONIUM 50 MG/5 ML INJ IV ONE (03:00)
[2019-03-02] MEDS ORDERED: KETAMINE 200 MG/20 ML INJ MDV ONE (03:00)
[2019-03-02] MEDS: CEFEPIME/NS 2 GM/100 ML 2 GM/100 ML BAG IV SCH ×3 (03:31→20:31)
[2019-03-02] MEDS: NORepinephrine/NS 4 MG-250 ML 4 MG/250 ML BAG IV SCH ×4 (04:15→20:31)
[2019-03-02] MEDS ORDERED: SODIUM BICARB 8.4% 50 MEQ/50 ML SYRINGE IV ONE ×2 (04:27→04:28)
[2019-03-02] MEDS ORDERED: LIP THERAPY VASELINE TP PRN (04:40)
[2019-03-02] MEDS ORDERED: MINERAL OIL/PETROLATUM, WHITE OPHTH OINT 3.5 GM OU PRN ×2 (04:40→16:43)
[2019-03-02] MEDS: VASOPRESSIN 20 UNIT in SODIUM CHLORIDE 0.9% 100 ML IV SCH ×2 (05:00→22:58)
--- NOTE | 2019-03-02 05:23 | XRay Report ---
CHEST 1 VIEW INDICATION / CLINICAL INFORMATION: ETT placement. COMPARISON: 02/28/2019 at 0532 hours p.m. FINDINGS: SUPPORT DEVICES: Interval placement of endotracheal tube. The tip of the tube is approximately 4.6 cm above the frank and appears to be in satisfactory position. Bilateral central venous lines are stab le in position. NG tube is present with the tip not visualized on this radiograph, but at least withi n the midportion of the stomach.. HEART / MEDIASTINUM: No significant abnormality. LUNGS / PLEURA: There is diffuse bilateral pulmonary opacities. This appears slightly more pronounced than on the last chest radiograph. No pneumothorax. No large pleural effusions. ADDITIONAL FINDINGS: No significant additional findings. IMPRESSION: 1. Satisfactory positioning of endotracheal tube. 2. Worsening bilateral pulmonary disease. Signer Name: Alysa Castro MD Signed: 03/02/2019 5:19 AM Workstation Name: [id number]
--- NOTE | 2019-03-02 05:39 | Procedure Note ---
Date of procedure: 03/02/19 Pre-op diagnosis: acute respiratory failure Post-op diagnosis: same Procedure: Respond to request from Hospital physician, Dr. Mcneal, for definitive airway placement/management, secondary to acute respiratory failure. Patient on BiPAP, somnolent, not protecting airway with copious secretions. As per verbal report from inpatient team, family has given consent for advanced airway management. Patient placed on nasal cannula at 15 m/m, and receives simultaneous idx-goqga-alid ventilation with a PEEP valve. Patient is preoxygenated to 95%. Ketamine is pushed, please see nursing documentation for this, direct laryngoscopy is performed with a curved Los 4 blade. Excellent visualization of the cords is noted, however, they're closely opposed, and the endotracheal tube is not able to be advanced. Copious secretions noted coming from the upper digestive tract. The patient is aggressively suctioned with a Yankauer. She receives additional jcy-oukkm-rmyl ventilation after transient desaturation. Laryngoscopy performed, and a bougie catheter is then inserted through the trachea, and a 7.5 endotracheal tube was subsequently inserted over the bougie catheter, with appropriate placement through the vocal cords. Tube placement is confirmed through direct visual placement of the tube through the cords, postplacement and tidal capnography, post procedure chest x-ray, and video laryngoscopy. Dr. Mcneal, Hospital physician present for the entire procedure. We will defer postintubation management to the inpatient team. X- ray of the chest shows appropriate tube placement. Prognosis is guarded at this time. Anesthesia: other (ketamine IV, see nurses noted) Surgeon: SATNAM JEAN Estimated blood loss: none Pathology: none Condition: critical Disposition: ICU
[2019-03-02 05:41] LABS: Mean Corpuscular HGB Conc 29 % (30-34); Mean Corpuscular Volume 84 fl (79-97); Platelet Count 417 K/mm3 (140-440)
[2019-03-02 05:47] LABS: Hematocrit 29.5 % (30.3-42.9); Hemoglobin 8.5 gm/dl (10.1-14.3); Red Cell Distribution Width 21.9 % (13.2-15.2)
[2019-03-02 05:55] LABS: Alanine Aminotransferase 50 units/L (7-56); Albumin 2.2 g/dL (3.9-5); BUN/Creatinine Ratio 55; Blood Urea Nitrogen 60 mg/dL (7-17); Hemolysis Index 0
[2019-03-02] MEDS: FUROSEMIDE 40 MG/4 ML INJ IV SCH ×2 (06:01→17:27)
[2019-03-02] MEDS: methylPREDNISolone Sod Succinate 125 MG/2 ML INJ IV SCH ×3 (06:02→21:45)
[2019-03-02] MEDS: BENZONATATE 100 MG CAP PO SCH ×3 (06:02→21:46)
[2019-03-02 06:29] LABS: ABG Base Excess 7.3 mmol/L (-2.0-3.0); ABG HCO3 36.6 mmol/L (20.0-26.0); ABG Methemoglobin 0.7 % (0.0-1.5); ABG Oxygen Saturation 88.3 % (95.0-99.0); ABG PCO2 87.5 mm Hg; ABG PH 7.239 pH Units (7.350-7.450)
--- NOTE | 2019-03-02 06:47 | Event Note ---
Date: 03/02/19 Called to bedside to assess patient, per nurse patient is unresponsive on BiPAP. Upon my assessment patient is responsive no reaction to sternal rub. Saturation of 80% on BiPAP, SBP 130s, and With respirations in 30's. Stat CT head was ordered, but patient was unable to complete because she became hypotensive in route to CT with SBP in 60's. Patient received 2L fluid resuscitation and was started on levophed gtt. Stat ABG showed pH 7.05 and pCO2 >130. Patient respirations began to decrease and her breathing became apneic while on BiPAP. Case was discussed with and daughter who were present at bedside. Family decided at this time they did not want to sign DO NOT RESUSCITATE form and would like everything medically possible done. Patient was intubated and placed on ventilator. Repeat ABG showed improvement with ABG of 7.23/87.5/60/36.6.
--- NOTE | 2019-03-02 07:51 | Progress Note ---
Assessment and Plan This is a 49 year old lady with advanced Stage IV left breast cancer with metastasis to the lungs. She's status post most recent surgery on 01/29/2019 left chest wall cancer ulcerative necrotic mass of 30 cm with 30x16 cm chest wall defect and wound vac placed. Admitted for worsening shortness of breath. She notes these symptoms began approximately 3 days prior to admission. Notable to this is that the patient was admitted in late January for similar complaints secondary to a pleural effusion, and was discharged after a thoracentesis. After her mastectomy she was left with a large chest wall defect, and had initially been on wound vac. However that was discontinued due to discomfort. Afebrile, but tachycardic and leukocytosis of 13.3. Currently recently vancomycin and cefepime. Cultures are negative thus far. CTA 02/28/[address]: 1[address] No [address] evidence for pulmonary embolism. 2. Extensive mediastinal, bilateral hilar and axillary adenopathy has progressed. 3. 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 4. Extensive new liver metastases in left adrenal metastasis. 4. Cholelithiasis, unchanged. - Acute respr failure with hypoxia edema versus pneumonia. Intubated and on MVS 03/01/19 On Lasix On iv Abx Cefepime and vancomycin Pulmonology consulted Recently discharged from hospital about 1 week ago - Sepsis with leukocytosis, fever, tachy, lactic acidosis Blood cultures drawn - Bilateral opacities: pulmonary edema versus pneumonia On lasix and Antibiotics consult ID Physician - History of pleural effusion s/p thoracentesis recent - Left breast cancer with mets to the bones and liver s/p surgery Dr. Self following Local Wound care. ET nurse consult - Hyperammonemia Commence lactulose - Hypertension Monitor BP - ELevated D- dimer CT angio was negative for PE - Full code status [facility] still wants her to be full code. Subjective Date of service: 03/02/19 Principal diagnosis: Breast cancer with mets to the lungs, ac respr failure with hypoxia, pl. ef Interval history: Patient seen and examined. Went into respiratory distress last night and was intubated and connected to mechanical ventilation 03/01/19 Objective - Exam Narrative Exam: Constitutional: Well-nourished well-developed. intubated and connected to mechanical ventilator Head: Normocephalic atraumatic Eyes: Pupils are equal round and reactive to light Nose: No enlarged turbinates, no septal deviation. Mouth: Moist mucous membranes. ET tube in place Neck: Supple no thyromegaly. No bruit. No JVD Heart: Regular rate and rhythm, S1-S2 normal. No rubs murmurs or gallop Lungs: Decreased breath sounds bilaterally with rales Abdomen: Soft, nontender. Bowel sound are present. Extremities: Left upper extremity edema, cyanosis, no clubbing. Neuro: Lethargic Skin: large ant. chest wall wound with dress dressing. No rashes or hyperpigmented spots Musculoskeletal system: No joint pain or swelling Hematological: No petechia or subcutanous hemorrhages. Immunological: No multiple septic spots on the skin Lymphatic: No generalized lymphadenopathy Psychiatry: Lethargic - Constitutional Vitals: Vital Signs - 12hr 03/01/19 03/01/19 03/01/19 19:50 20:00 20:10 Temperature 98.2 F Pulse Rate 94 H 103 H 89 Pulse Rate [ Anterior Throughout] Pulse Rate [ 94 H Apical] Respiratory 12 26 H 12 Rate Respiratory Rate [Anterior Throughout] Blood Pressure 144/85 136/78 136/78 O2 Sat by Pulse 92 93 93 Oximetry 03/01/19 03/01/19 03/01/19 20:20 20:30 20:40 Temperature Pulse Rate 102 H 97 H 102 H Pulse Rate [ Anterior Throughout] Pulse Rate [ Apical] Respiratory 10 L 12 26 H Rate Respiratory Rate [Anterior Throughout] Blood Pressure 136/78 136/78 136/78 O2 Sat by Pulse 93 93 93 Oximetry 03/01/19 03/01/19 03/01/19 20:50 21:00 21:10 Temperature Pulse Rate 97 H 104 H 105 H Pulse Rate [ Anterior Throughout] Pulse Rate [ Apical] Respiratory 19 29 H 27 H Rate Respiratory Rate [Anterior Throughout] Blood Pressure 136/78 125/59 125/59 O2 Sat by Pulse 93 93 94 Oximetry 03/01/19 03/01/19 03/01/19 21:20 21:25 21:30 Temperature Pulse Rate 100 H 106 H 99 H Pulse Rate [ Anterior Throughout] Pulse Rate [ Apical] Respiratory 19 33 H 28 H Rate Respiratory Rate [Anterior Throughout] Blood Pressure 125/59 125/59 125/59 O2 Sat by Pulse 93 94 93 Oximetry 03/01/19 03/01/19 03/01/19 21:35 21:40 21:50 Temperature Pulse Rate 106 H 105 H Pulse Rate [ 105 H Anterior Throughout] Pulse Rate [ Apical] Respiratory 30 H 34 H Rate Respiratory 34 H Rate [Anterior Throughout] Blood Pressure 125/59 125/59 O2 Sat by Pulse 94 93 Oximetry 03/01/19 03/01/19 03/01/19 22:00 22:10 22:20 Temperature Pulse Rate 99 H 89 102 H Pulse Rate [ Anterior Throughout] Pulse Rate [ Apical] Respiratory 21 28 H 25 H Rate Respiratory Rate [Anterior Throughout] Blood Pressure 118/53 118/53 118/53 O2 Sat by Pulse 92 93 93 Oximetry 03/01/19 03/01/19 03/01/19 22:30 22:40 22:50 Temperature Pulse Rate 95 H 108 H 110 H Pulse Rate [ Anterior Throughout] Pulse Rate [ Apical] Respiratory 19 27 H 19 Rate Respiratory Rate [Anterior Throughout] Blood Pressure 118/53 118/53 118/53 O2 Sat by Pulse 94 93 92 Oximetry 03/01/19 03/01/19 03/01/19 23:00 23:10 23:20 Temperature Pulse Rate 103 H 109 H 111 H Pulse Rate [ Anterior Throughout] Pulse Rate [ Apical] Respiratory 30 H 34 H 33 H Rate Respiratory Rate [Anterior Throughout] Blood Pressure 127/63 127/63 127/63 O2 Sat by Pulse 92 92 90 Oximetry 03/01/19 03/01/19 03/01/19 23:21 23:30 23:40 Temperature 99 F Pulse Rate 113 H 93 H Pulse Rate [ Anterior Throughout] Pulse Rate [ Apical] Respiratory 29 H 28 H Rate Respiratory Rate [Anterior Throughout] Blood Pressure 127/63 127/63 O2 Sat by Pulse 90 90 Oximetry 03/01/19 03/02/19 03/02/19 23:50 00:00 00:10 Temperature Pulse Rate 102 H 97 H 105 H Pulse Rate [ Anterior Throughout] Pulse Rate [ 108 H Apical] Respiratory 30 H 31 H 32 H Rate Respiratory Rate [Anterior Throughout] Blood Pressure 127/63 134/64 134/64 O2 Sat by Pulse 90 87 88 Oximetry 03/02/19 03/02/19 03/02/19 00:20 00:30 00:40 Temperature Pulse Rate 107 H 101 H 104 H Pulse Rate [ Anterior Throughout] Pulse Rate [ Apical] Respiratory 31 H 32 H 34 H Rate Respiratory Rate [Anterior Throughout] Blood Pressure 134/64 134/64 134/64 O2 Sat by Pulse 89 89 89 Oximetry 03/02/19 03/02/19 03/02/19 00:50 01:00 01:10 Temperature Pulse Rate 95 H 105 H 104 H Pulse Rate [ Anterior Throughout] Pulse Rate [ Apical] Respiratory 34 H 30 H 32 H Rate Respiratory Rate [Anterior Throughout] Blood Pressure 134/64 111/57 111/57 O2 Sat by Pulse 89 90 89 Oximetry 03/02/19 03/02/19 03/02/19 01:20 01:30 01:40 Temperature Pulse Rate 109 H 98 H 107 H Pulse Rate [ Anterior Throughout] Pulse Rate [ Apical] Respiratory 28 H 34 H 30 H Rate Respiratory Rate [Anterior Throughout] Blood Pressure 111/57 111/57 111/57 O2 Sat by Pulse 89 85 89 Oximetry 03/02/19 03/02/19 03/02/19 01:50 02:00 02:10 Temperature Pulse Rate 108 H 113 H 111 H Pulse Rate [ Anterior Throughout] Pulse Rate [ Apical] Respiratory 30 H 30 H 33 H Rate Respiratory Rate [Anterior Throughout] Blood Pressure 111/57 121/55 121/55 O2 Sat by Pulse 90 90 89 Oximetry 03/02/19 03/02/19 03/02/19 02:20 02:30 02:40 Temperature Pulse Rate 108 H 111 H 110 H Pulse Rate [ Anterior Throughout] Pulse Rate [ Apical] Respiratory 33 H 31 H 31 H Rate Respiratory Rate [Anterior Throughout] Blood Pressure 121/55 121/55 121/55 O2 Sat by Pulse 88 88 88 Oximetry 03/02/19 03/02/19 03/02/19 02:50 03:00 03:10 Temperature Pulse Rate 108 H 108 H 109 H Pulse Rate [ Anterior Throughout] Pulse Rate [ Apical] Respiratory 33 H 30 H 33 H Rate Respiratory Rate [Anterior Throughout] Blood Pressure 121/55 110/49 110/49 O2 Sat by Pulse 88 88 88 Oximetry 03/02/19 03/02/19 03/02/19 03:20 03:30 03:32 Temperature 98.8 F Pulse Rate 109 H 110 H Pulse Rate [ Anterior Throughout] Pulse Rate [ Apical] Respiratory 31 H 32 H Rate Respiratory Rate [Anterior Throughout] Blood Pressure 110/49 110/49 O2 Sat by Pulse 88 88 Oximetry 03/02/19 03/02/19 03/02/19 03:40 03:50 04:14 Temperature Pulse Rate 104 H 109 H 110 H Pulse Rate [ Anterior Throughout] Pulse Rate [ Apical] Respiratory 31 H 34 H 28 H Rate Respiratory Rate [Anterior Throughout] Blood Pressure 110/49 110/49 110/49 O2 Sat by Pulse 89 90 84 Oximetry 03/02/19 03/02/19 03/02/19 04:20 04:30 04:40 Temperature Pulse Rate 110 H 109 H 80 Pulse Rate [ Anterior Throughout] Pulse Rate [ Apical] Respiratory 31 H 28 H 27 H Rate Respiratory Rate [Anterior Throughout] Blood Pressure 79/42 110/53 110/43 O2 Sat by Pulse 87 88 81 L Oximetry 03/02/19 03/02/19 03/02/19 04:50 05:00 05:10 Temperature Pulse Rate 90 149 H 111 H Pulse Rate [ Anterior Throughout] Pulse Rate [ Apical] Respiratory 9 L 8 L 16 Rate Respiratory Rate [Anterior Throughout] Blood Pressure 113/69 136/86 O2 Sat by Pulse 88 92 93 Oximetry 03/02/19 03/02/19 03/02/19 05:20 05:30 05:40 Temperature Pulse Rate 113 H 108 H 111 H Pulse Rate [ Anterior Throughout] Pulse Rate [ Apical] Respiratory 22 23 14 Rate Respiratory Rate [Anterior Throughout] Blood Pressure 141/90 152/83 159/84 O2 Sat by Pulse 94 95 96 Oximetry 03/02/19 03/02/19 03/02/19 05:50 06:00 06:04 Temperature Pulse Rate 130 H 112 H 107 H Pulse Rate [ Anterior Throughout] Pulse Rate [ Apical] Respiratory 19 22 Rate Respiratory Rate [Anterior Throughout] Blood Pressure 148/80 167/88 167/88 O2 Sat by Pulse 93 92 Oximetry 03/02/19 03/02/19 03/02/19 06:10 06:20 06:30 Temperature Pulse Rate 113 H 105 H 109 H Pulse Rate [ Anterior Throughout] Pulse Rate [ Apical] Respiratory 25 H 19 24 Rate Respiratory Rate [Anterior Throughout] Blood Pressure 143/78 143/80 146/69 O2 Sat by Pulse 92 93 94 Oximetry 03/02/19 03/02/19 03/02/19 06:40 06:50 07:00 Temperature Pulse Rate 126 H 119 H 118 H Pulse Rate [ Anterior Throughout] Pulse Rate [ Apical] Respiratory 24 24 28 H Rate Respiratory Rate [Anterior Throughout] Blood Pressure 140/66 135/73 129/64 O2 Sat by Pulse 94 96 94 Oximetry 03/02/19 03/02/19 03/02/19 07:10 07:20 07:30 Temperature Pulse Rate 117 H 119 H 131 H Pulse Rate [ Anterior Throughout] Pulse Rate [ Apical] Respiratory 24 24 25 H Rate Respiratory Rate [Anterior Throughout] Blood Pressure 130/61 137/62 127/58 O2 Sat by Pulse 95 96 96 Oximetry - Labs CBC & Chem 7: 03/02/19 05:27 03/02/19 05:27 Labs: Abnormal lab results 03/01/19 03/01/19 03/02/19 Range/Units 12:36 17:31 04:29 WBC (4.5-11.0) K/mm3 RBC (3.65-5.03) M/mm3 Hgb (10.1-14.3) gm/dl Hct (30.3-42.9) % MCH (28-32) pg MCHC (30-34) % RDW (13.2-15.2) % POC ABG pH (7.35-7.45) ABG pH (7.350-7.450) pH Units POC ABG pO2 (80-105) ABG pO2 (80.0-90.0) mm Hg ABG HCO3 (20.0-26.0) mmol/L ABG O2 Saturation (95.0-99.0) % ABG Base Excess (-2.0-3.0) mmol/L ABG Hemoglobin (12.0-16.0) gm/dl Oxyhemoglobin (95.0-99.0) % Sodium (137-145) mmol/L Potassium (3.6-5.0) mmol/L Chloride (98-107) mmol/L Carbon Dioxide (22-30) mmol/L BUN (7-17) mg/dL Glucose (65-100) mg/dL POC Glucose 140 H 157 H 161 H (70-105) Phosphorus (2.5-4.5) mg/dL Magnesium (1.7-2.3) mg/dL AST (5-40) units/L Alkaline Phosphatase (35-129) units/L Ammonia (25-60) umol/L Total Protein (6.3-8.2) g/dL Albumin (3.9-5) g/dL 03/02/19 03/02/19 03/02/19 Range/Units 04:32 05:27 05:27 WBC 17.8 H (4.5-11.0) K/mm3 RBC 3.50 L (3.65-5.03) M/mm3 Hgb 8.5 L (10.1-14.3) gm/dl Hct 29.5 L (30.3-42.9) % MCH 24 L (28-32) pg MCHC 29 L (30-34) % RDW 21.9 H (13.2-15.2) % POC ABG pH 7.056 L (7.35-7.45) ABG pH (7.350-7.450) pH Units POC ABG pO2 64 L (80-105) ABG pO2 (80.0-90.0) mm Hg ABG HCO3 (20.0-26.0) mmol/L ABG O2 Saturation (95.0-99.0) % ABG Base Excess (-2.0-3.0) mmol/L ABG Hemoglobin (12.0-16.0) gm/dl Oxyhemoglobin (95.0-99.0) % Sodium 156 H D (137-145) mmol/L Potassium 5.4 H (3.6-5.0) mmol/L Chloride 108.6 H (98-107) mmol/L Carbon Dioxide 39 H (22-30) mmol/L BUN 60 H (7-17) mg/dL Glucose 159 H (65-100) mg/dL POC Glucose (70-105) Phosphorus (2.5-4.5) mg/dL Magnesium (1.7-2.3) mg/dL AST 164 H (5-40) units/L Alkaline Phosphatase 164 H (35-129) units/L Ammonia (25-60) umol/L Total Protein 6.2 L (6.3-8.2) g/dL Albumin 2.2 L (3.9-5) g/dL 03/02/19 03/02/19 03/02/19 Range/Units 05:27 05:27 06:04 WBC (4.5-11.0) K/mm3 RBC (3.65-5.03) M/mm3 Hgb (10.1-14.3) gm/dl Hct (30.3-42.9) % MCH (28-32) pg MCHC (30-34) % RDW (13.2-15.2) % POC ABG pH (7.35-7.45) ABG pH 7.239 L (7.350-7.450) pH Units POC ABG pO2 (80-105) ABG pO2 60.0 L (80.0-90.0) mm Hg ABG HCO3 36.6 H (20.0-26.0) mmol/L ABG O2 Saturation 88.3 L (95.0-99.0) % ABG Base Excess 7.3 H (-2.0-3.0) mmol/L ABG Hemoglobin 9.1 L (12.0-16.0) gm/dl Oxyhemoglobin 86.3 L (95.0-99.0) % Sodium (137-145) mmol/L Potassium (3.6-5.0) mmol/L Chloride (98-107) mmol/L Carbon Dioxide (22-30) mmol/L BUN (7-17) mg/dL Glucose (65-100) mg/dL POC Glucose (70-105) Phosphorus 6.90 H (2.5-4.5) mg/dL Magnesium 2.80 H (1.7-2.3) mg/dL AST (5-40) units/L Alkaline Phosphatase (35-129) units/L Ammonia 81.0 H (25-60) umol/L Total Protein (6.3-8.2) g/dL Albumin (3.9-5) g/dL
[2019-03-02] MEDS: SODIUM CHLORIDE 0.9% 1000 ML 1,000 ML IV SCH ×2 (08:20→08:21)
[2019-03-02] MEDS: IPRATROPIUM/ALBUTEROL SULFATE 3 ML AMPUL.NEB IH SCH ×3 (09:25→20:22)
[2019-03-02 09:47] LABS: Basophils % (Manual) 0 % (0.0-1.8); Eosinophils % (Manual) 0 % (0.0-4.3); Total Cells Counted 100
[2019-03-02 09:49] LABS: Hypochromasia 1+; Platelet Estimate Consistent w Auto; Stomatocytes Few; Target Cells Few
--- NOTE | 2019-03-02 09:49 | XRay Report ---
Abdomen single view INDICATION: Abdominal pain IMPRESSION: The esophagogastric tube terminates within the mid stomach. Signer Name: Rahat Arnold MD Signed: 03/02/2019 9:45 AM Workstation Name: [email or web address]
[2019-03-02] MEDS: HYDROmorphone 1 MG/1 ML INJ IV PRN ×3 (10:17→15:38)
[2019-03-02] MEDS: LACTULOSE 20 GM/30 ML ORAL LIQD PO SCH ×2 (10:17→21:46)
[2019-03-02] MEDS: ENOXAPARIN 40 MG/0.4 ML INJ SUB-Q SCH (10:17)
[2019-03-02 13:12] LABS: ABG PCO2 50.8 mm Hg; ABG PH 7.43 pH Units (7.350-7.450); ABG PO2 103.9 mm Hg (80.0-90.0)
[2019-03-02 13:13] LABS: ABG Base Excess 7.7 mmol/L (-2.0-3.0); ABG HCO3 32.9 mmol/L (20.0-26.0); ABG Methemoglobin 0.7 % (0.0-1.5); ABG Oxygen Saturation 97.7 % (95.0-99.0)
[2019-03-02] MEDS ORDERED: ACETAMINOPHEN 325 MG TAB PO PRN (13:46)
--- NOTE | 2019-03-02 14:35 | Progress Note ---
Assessment and Plan Acute hypoxemic-hypercapnic respiratory failure Sepsis, possible from left lung pneumonia Right pleural effusion Metastatic breast cancer Hypernatremia Poor medical compliance Obesity - get 2D ECHO - transduce CVP's - folow trachea; aspirate - follow serum Poatassium - fentanyl gtt and titrate for RASS 0 to -1 - begin enteral nutrition - scopolamine patch for secretion control (+ Robinul acuitely) - get urine lytes - continue vasopressors as needed for target MAP > 65 mmHg - daily SAT's and SBT assessment as tolerated in am - CT head on hold till more stable - continue lawson catheter in this critically ill patient with quickly progressing SELAM - VAP bundle addressed (Aspiration precautions, HOB > 40 degrees) - continue Lung protective strategies - continue to wean FIO2 for O2 sats >90% - continue brnchodilators with pulmonary hygiene per RT - increased Peep to 10 - daily CXR's & ABG's acutely - continue to avoid nephrotoxins and adjust all medications fro GFR and CrCL - begin enteral nutrition and advance to goal rate as tolerated (hold for tentative extubation) - continue agitation management / Pain management per CPOT - complete empiric antibiotics for PNA - continue VTE prophylaxis - continue stress ulcer prophylaxis with PPI - continue accuchecks with glycemic control for SSI (While critically ill target blood glucose of 140-180 mg/dL; avoid hypoglycemia) - Continue mobility protocol for pressure ulcer prevention - Continue to monitor hemodynamics closely - Monitor electrolyte profile closely and replete as indicated - continue chronic home medications per attending and as clinically indicated - s/p thoracentesis (1400 ml's drained); follow studies - Wound care per RN & WCT - Free water ordered - Gentle diuresis while monitoring hemodynamics, electrolyte profile and renal function - Steroids for airway inflammation, short course - Follow up BMP and CBC in the morning - Hospice consult placed - continue other care per attending / other consultants ...... care plan discussed with at bedside CONDITION: CRITICAL PROGNOSIS: GUARDED-POOR CODE STATUS: FULL CODE The high probability of a clinically significant, sudden or life-threatening deterioration of the [respiratory &n neurologic] system(s) required my full and direct attention, intervention and personal management. The aggregate critical care time was [35] minutes without overlap. Time includes spent on; [x] Data Review and interpretation [x] Patient assessment and monitoring of vital signs [x] Documentation [x] Medication orders and management Subjective Date of service: 03/02/19 Principal diagnosis: Ac. hypoxemic resp failure; Sev Sepsis; R. pleural effusion; Met. CA breast Interval history: Patient is seen today for: Acute hypoxemic-hypercapnic respiratory failure; Sepsis, possible from left lung pneumonia; Right pleural effusion; Metastatic breast cancer; Hypernatremia; Poor medical compliance; Obesity Seen and examined at bedside; 24hour events reviewed; nursing and respiratory care staff consulted; no adverse overnight events reported to me; Objective Vital Signs - 12hr 03/02/19 03/02/19 03/02/19 02:40 02:50 03:00 Temperature Pulse Rate 110 H 108 H 108 H Pulse Rate [ Apical] Respiratory 31 H 33 H 30 H Rate Blood Pressure 121/55 121/55 110/49 O2 Sat by Pulse 88 88 88 Oximetry 03/02/19 03/02/19 03/02/19 03:10 03:20 03:30 Temperature Pulse Rate 109 H 109 H 110 H Pulse Rate [ Apical] Respiratory 33 H 31 H 32 H Rate Blood Pressure 110/49 110/49 110/49 O2 Sat by Pulse 88 88 88 Oximetry 03/02/19 03/02/19 03/02/19 03:32 03:40 03:50 Temperature 98.8 F Pulse Rate 104 H 109 H Pulse Rate [ Apical] Respiratory 31 H 34 H Rate Blood Pressure 110/49 110/49 O2 Sat by Pulse 89 90 Oximetry 03/02/19 03/02/19 03/02/19 04:00 04:14 04:20 Temperature Pulse Rate 110 H 110 H Pulse Rate [ 110 H Apical] Respiratory 33 H 28 H 31 H Rate Blood Pressure 110/49 79/42 O2 Sat by Pulse 88 84 87 Oximetry 03/02/19 03/02/19 03/02/19 04:30 04:40 04:50 Temperature Pulse Rate 109 H 80 90 Pulse Rate [ Apical] Respiratory 28 H 27 H 9 L Rate Blood Pressure 110/53 110/43 O2 Sat by Pulse 88 81 L 88 Oximetry 03/02/19 03/02/19 03/02/19 05:00 05:10 05:20 Temperature Pulse Rate 149 H 111 H 113 H Pulse Rate [ Apical] Respiratory 8 L 16 22 Rate Blood Pressure 113/69 136/86 141/90 O2 Sat by Pulse 92 93 94 Oximetry 03/02/19 03/02/19 03/02/19 05:30 05:40 05:50 Temperature Pulse Rate 108 H 111 H 130 H Pulse Rate [ Apical] Respiratory 23 14 19 Rate Blood Pressure 152/83 159/84 148/80 O2 Sat by Pulse 95 96 Oximetry 03/02/19 03/02/19 03/02/19 06:00 06:04 06:10 Temperature Pulse Rate 112 H 107 H 113 H Pulse Rate [ Apical] Respiratory 22 25 H Rate Blood Pressure 167/88 167/88 143/78 O2 Sat by Pulse 93 92 92 Oximetry 03/02/19 03/02/19 03/02/19 06:20 06:30 06:40 Temperature Pulse Rate 105 H 109 H 126 H Pulse Rate [ Apical] Respiratory 19 24 24 Rate Blood Pressure 143/80 146/69 140/66 O2 Sat by Pulse 93 94 94 Oximetry 03/02/19 03/02/19 03/02/19 06:50 07:00 07:10 Temperature Pulse Rate 119 H 118 H 117 H Pulse Rate [ Apical] Respiratory 24 28 H 24 Rate Blood Pressure 135/73 129/64 130/61 O2 Sat by Pulse 96 94 95 Oximetry 03/02/19 03/02/19 03/02/19 07:20 07:30 07:40 Temperature Pulse Rate 119 H 131 H 121 H Pulse Rate [ Apical] Respiratory 24 25 H 31 H Rate Blood Pressure 137/62 127/58 109/56 O2 Sat by Pulse 96 96 96 Oximetry 03/02/19 03/02/19 03/02/19 07:50 08:00 08:10 Temperature 99.8 F H Pulse Rate 133 H 129 H 131 H Pulse Rate [ 130 H Apical] Respiratory 16 28 H 18 Rate Blood Pressure 96/48 105/51 96/52 O2 Sat by Pulse 97 98 98 Oximetry 03/02/19 03/02/19 03/02/19 08:20 08:30 08:40 Temperature Pulse Rate 126 H 131 H 127 H Pulse Rate [ Apical] Respiratory 19 27 H 11 L Rate Blood Pressure 106/52 98/51 104/56 O2 Sat by Pulse 98 98 99 Oximetry 03/02/19 03/02/19 03/02/19 08:50 09:00 09:10 Temperature Pulse Rate 133 H 128 H 138 H Pulse Rate [ Apical] Respiratory 28 H 28 H 15 Rate Blood Pressure 109/58 116/61 113/59 O2 Sat by Pulse 100 100 96 Oximetry 03/02/19 03/02/19 03/02/19 09:20 09:30 09:40 Temperature Pulse Rate 131 H 127 H 129 H Pulse Rate [ Apical] Respiratory 28 H 24 28 H Rate Blood Pressure 113/56 97/53 96/49 O2 Sat by Pulse 100 99 98 Oximetry 03/02/19 03/02/19 03/02/19 09:50 10:00 10:10 Temperature Pulse Rate 136 H 136 H 116 H Pulse Rate [ Apical] Respiratory 20 25 H 19 Rate Blood Pressure 97/43 98/54 117/67 O2 Sat by Pulse 98 98 98 Oximetry 03/02/19 03/02/19 03/02/19 10:20 10:30 10:40 Temperature Pulse Rate 130 H 132 H 132 H Pulse Rate [ Apical] Respiratory 28 H 28 H 28 H Rate Blood Pressure 94/42 83/47 79/49 O2 Sat by Pulse 98 99 99 Oximetry 03/02/19 03/02/19 03/02/19 10:50 11:00 11:10 Temperature Pulse Rate 124 H 132 H 132 H Pulse Rate [ Apical] Respiratory 28 H 28 H 28 H Rate Blood Pressure 79/49 87/54 90/51 O2 Sat by Pulse 99 99 99 Oximetry 03/02/19 03/02/19 03/02/19 11:20 11:30 11:40 Temperature Pulse Rate 134 H 114 H 127 H Pulse Rate [ Apical] Respiratory 26 H 22 28 H Rate Blood Pressure 91/55 80/41 93/69 O2 Sat by Pulse 99 99 99 Oximetry 03/02/19 03/02/19 03/02/19 11:50 11:59 12:00 Temperature 100.9 F H Pulse Rate 124 H 121 H Pulse Rate [ 122 H Apical] Respiratory 27 H 28 H 28 H Rate Blood Pressure 93/69 107/50 O2 Sat by Pulse 99 99 99 Oximetry 03/02/19 03/02/19 03/02/19 12:10 12:20 12:30 Temperature Pulse Rate 120 H 119 H 122 H Pulse Rate [ Apical] Respiratory 29 H 27 H 24 Rate Blood Pressure 116/65 116/70 112/64 O2 Sat by Pulse 99 100 99 Oximetry 03/02/19 03/02/19 03/02/19 12:40 12:50 13:00 Temperature Pulse Rate 121 H 131 H 125 H Pulse Rate [ Apical] Respiratory 25 H 28 H 28 H Rate Blood Pressure 111/72 111/72 121/75 O2 Sat by Pulse 100 99 99 Oximetry 03/02/19 03/02/19 03/02/19 13:10 13:20 13:30 Temperature Pulse Rate 122 H 123 H 124 H Pulse Rate [ Apical] Respiratory 28 H 28 H 28 H Rate Blood Pressure 129/66 104/63 113/59 O2 Sat by Pulse 99 99 99 Oximetry 03/02/19 03/02/19 03/02/19 13:34 13:40 13:50 Temperature Pulse Rate 121 H 123 H 126 H Pulse Rate [ Apical] Respiratory 28 H 28 H Rate Blood Pressure 113/59 120/66 128/65 O2 Sat by Pulse 98 97 96 Oximetry 03/02/19 03/02/19 14:09 14:10 Temperature Pulse Rate 123 H 126 H Pulse Rate [ Apical] Respiratory 28 H 28 H Rate Blood Pressure 119/64 O2 Sat by Pulse 96 96 Oximetry Constitutional: alert, appears uncomfortable, other (middle aged obese AAF with mildly increased respiratory distress on Venti mask) Eyes: non-icteric ENT: oropharynx moist Neck: supple, no lymphadenopathy, no JVD, other (Left IJ CVC; large neck circumference) Effort: mildly labored Ascultation: Bilateral: diminished breath sounds, rales Percussion: Bilateral: not dull Cardiovascular: regular rate and rhythm, other (Tachycardia S1,S2, no murmurs. Anterior chest wall dressing) Gastrointestinal: normoactive bowel sounds, soft, non-tender, non-distended Integumentary: other (Chest wall wound) Extremities: no cyanosis, pulses normal, no ischemia or petechiae, edema, other (edema) Neurologic: non-focal exam (grossly), pupils equal and round, motor strength normal and, other (somnolent) Psychiatric: other (unable to assess re: AMS) CBC and BMP: 03/02/19 05:27 03/02/19 05:27 ABG, PT/INR, D-dimer: ABG POC ABG pH 7.056 (7.35-7.45) L 03/02/19 04:32 ABG pH 7.430 pH Units (7.350-7.450) 03/02/19 10:56 ABG pCO2 50.8 mm Hg 03/02/19 10:56 POC ABG pO2 64 (80-105) L 03/02/19 04:32 ABG pO2 103.9 mm Hg (80.0-90.0) H 03/02/19 10:56 ABG O2 Saturation 97.7 % (95.0-99.0) 03/02/19 10:56 PT/INR, D-dimer PT 14.8 Sec. (12.2-14.9) 02/27/19 12:38 INR 1.17 (0.87-1.13) H 02/27/19 12:38 D-Dimer 5778.32 ng/mlDDU (0-234) H 02/27/19 12:38 Abnormal lab findings: Abnormal Labs 02/27/19 02/27/19 02/27/19 11:33 11:33 11:33 WBC 18.6 H RBC 3.60 L Hgb 8.7 L Hct 28.8 L MCH 24 L MCHC RDW 23.0 H Plt Count 507 H Lymph % (Auto) 12.9 L [place] # 1.3 H Seg Neutrophils % 79.7 H Seg Neuts % (Manual) Lymphocytes % (Manual) Nucleated RBC % Seg Neutrophils # 14.8 H Seg Neutrophils # Man Lymphocytes # (Manual) INR D-Dimer POC ABG pH ABG pH POC ABG pCO2 POC ABG pO2 ABG pO2 ABG HCO3 ABG O2 Saturation ABG Base Excess ABG Hemoglobin Oxyhemoglobin Sodium Potassium Chloride 96.8 L Carbon Dioxide BUN 28 H Creatinine 0.5 L Glucose 169 H POC Glucose Lactic Acid 3.40 H* Phosphorus Magnesium AST Alkaline Phosphatase Ammonia Total Creatine Kinase 197 H CK-MB (CK-2) 4.1 H NT-Pro-B Natriuret Pep Total Protein Albumin Crossmatch 02/27/19 02/27/19 02/27/19 11:33 11:45 11:47 WBC RBC Hgb Hct MCH MCHC RDW Plt Count Lymph % (Auto) [place] # Seg Neutrophils % Seg Neuts % (Manual) Lymphocytes % (Manual) Nucleated RBC % Seg Neutrophils # Seg Neutrophils # Man Lymphocytes # (Manual) INR D-Dimer POC ABG pH ABG pH POC ABG pCO2 POC ABG pO2 ABG pO2 ABG HCO3 ABG O2 Saturation ABG Base Excess ABG Hemoglobin Oxyhemoglobin Sodium Potassium Chloride Carbon Dioxide BUN Creatinine Glucose POC Glucose 169 H Lactic Acid Phosphorus Magnesium AST 95 H Alkaline Phosphatase 130 H Ammonia Total Creatine Kinase CK-MB (CK-2) NT-Pro-B Natriuret Pep Total Protein Albumin 2.9 L Crossmatch See Detail 02/27/19 02/27/19 02/27/19 12:30 12:38 14:08 WBC RBC Hgb Hct MCH MCHC RDW Plt Count Lymph % (Auto) [place] # Seg Neutrophils % Seg Neuts % (Manual) Lymphocytes % (Manual) Nucleated RBC % Seg Neutrophils # Seg Neutrophils # Man Lymphocytes # (Manual) INR 1.17 H D-Dimer 5778.32 H POC ABG pH 7.326 L ABG pH POC ABG pCO2 POC ABG pO2 129 H ABG pO2 ABG HCO3 ABG O2 Saturation ABG Base Excess ABG Hemoglobin Oxyhemoglobin Sodium Potassium Chloride Carbon Dioxide BUN Creatinine Glucose POC Glucose Lactic Acid 3.00 H* Phosphorus Magnesium AST Alkaline Phosphatase Ammonia Total Creatine Kinase CK-MB (CK-2) NT-Pro-B Natriuret Pep Total Protein Albumin Crossmatch 02/27/19 02/27/19 02/27/19 15:03 16:06 18:08 WBC RBC Hgb Hct MCH MCHC RDW Plt Count Lymph % (Auto) [place] # Seg Neutrophils % Seg Neuts % (Manual) Lymphocytes % (Manual) Nucleated RBC % Seg Neutrophils # Seg Neutrophils # Man Lymphocytes # (Manual) INR D-Dimer POC ABG pH ABG pH POC ABG pCO2 68.8 H POC ABG pO2 225 H ABG pO2 ABG HCO3 ABG O2 Saturation ABG Base Excess ABG Hemoglobin Oxyhemoglobin Sodium Potassium Chloride Carbon Dioxide BUN Creatinine Glucose POC Glucose Lactic Acid 3.20 H* 2.80 H* Phosphorus Magnesium AST Alkaline Phosphatase Ammonia Total Creatine Kinase CK-MB (CK-2) NT-Pro-B Natriuret Pep Total Protein Albumin Crossmatch 02/27/19 02/28/19 02/28/19 18:12 10:00 10:00 WBC 13.3 H RBC 3.39 L Hgb 8.1 L Hct 26.7 L MCH 24 L MCHC RDW 22.5 H Plt Count Lymph % (Auto) [place] # Seg Neutrophils % Seg Neuts % (Manual) Lymphocytes % (Manual) Nucleated RBC % Seg Neutrophils # Seg Neutrophils # Man Lymphocytes # (Manual) INR D-Dimer POC ABG pH ABG pH POC ABG pCO2 POC ABG pO2 ABG pO2 ABG HCO3 ABG O2 Saturation ABG Base Excess ABG Hemoglobin Oxyhemoglobin Sodium 146 H Potassium Chloride Carbon Dioxide 32 H BUN 32 H Creatinine 0.5 L Glucose 111 H POC Glucose Lactic Acid 2.30 H* Phosphorus Magnesium AST 93 H Alkaline Phosphatase Ammonia Total Creatine Kinase CK-MB (CK-2) NT-Pro-B Natriuret Pep Total Protein Albumin 2.6 L Crossmatch 02/28/19 03/01/19 03/01/19 10:26 00:05 05:00 WBC 20.2 H RBC Hgb 9.0 L Hct 29.9 L MCH 24 L MCHC RDW 22.8 H Plt Count 498 H Lymph % (Auto) [place] # Seg Neutrophils % Seg Neuts % (Manual) Lymphocytes % (Manual) Nucleated RBC % Seg Neutrophils # Seg Neutrophils # Man Lymphocytes # (Manual) INR D-Dimer POC ABG pH ABG pH POC ABG pCO2 54.2 H POC ABG pO2 ABG pO2 ABG HCO3 ABG O2 Saturation ABG Base Excess ABG Hemoglobin Oxyhemoglobin Sodium Potassium Chloride Carbon Dioxide BUN Creatinine Glucose POC Glucose 167 H Lactic Acid Phosphorus Magnesium AST Alkaline Phosphatase Ammonia Total Creatine Kinase CK-MB (CK-2) NT-Pro-B Natriuret Pep Total Protein Albumin Crossmatch 03/01/19 03/01/19 03/01/19 05:00 12:36 17:31 WBC RBC Hgb Hct MCH MCHC RDW Plt Count Lymph % (Auto) [place] # Seg Neutrophils % Seg Neuts % (Manual) Lymphocytes % (Manual) Nucleated RBC % Seg Neutrophils # Seg Neutrophils # Man Lymphocytes # (Manual) INR D-Dimer POC ABG pH ABG pH POC ABG pCO2 POC ABG pO2 ABG pO2 ABG HCO3 ABG O2 Saturation ABG Base Excess ABG Hemoglobin Oxyhemoglobin Sodium 148 H Potassium Chloride Carbon Dioxide 37 H BUN 43 H Creatinine 0.6 L Glucose 150 H POC Glucose 140 H 157 H Lactic Acid Phosphorus Magnesium AST Alkaline Phosphatase Ammonia Total Creatine Kinase CK-MB (CK-2) NT-Pro-B Natriuret Pep Total Protein Albumin Crossmatch 03/02/19 03/02/19 03/02/19 04:29 04:32 05:27 WBC RBC Hgb Hct MCH MCHC RDW Plt Count Lymph % (Auto) [place] # Seg Neutrophils % Seg Neuts % (Manual) Lymphocytes % (Manual) Nucleated RBC % Seg Neutrophils # Seg Neutrophils # Man Lymphocytes # (Manual) INR D-Dimer POC ABG pH 7.056 L ABG pH POC ABG pCO2 POC ABG pO2 64 L ABG pO2 ABG HCO3 ABG O2 Saturation ABG Base Excess ABG Hemoglobin Oxyhemoglobin Sodium Potassium Chloride Carbon Dioxide BUN Creatinine Glucose POC Glucose 161 H Lactic Acid Phosphorus Magnesium AST Alkaline Phosphatase Ammonia Total Creatine Kinase CK-MB (CK-2) NT-Pro-B Natriuret Pep 2143 H Total Protein Albumin Crossmatch 03/02/19 03/02/19 03/02/19 05:27 05:27 05:27 WBC 17.8 H RBC 3.50 L Hgb 8.5 L Hct 29.5 L MCH 24 L MCHC 29 L RDW 21.9 H Plt Count Lymph % (Auto) [place] # Seg Neutrophils % Seg Neuts % (Manual) 94.0 H Lymphocytes % (Manual) 2.0 L Nucleated RBC % 1.0 H Seg Neutrophils # Seg Neutrophils # Man 16.7 H Lymphocytes # (Manual) 0.4 L INR D-Dimer POC ABG pH ABG pH POC ABG pCO2 POC ABG pO2 ABG pO2 ABG HCO3 ABG O2 Saturation ABG Base Excess ABG Hemoglobin Oxyhemoglobin Sodium 156 H D Potassium 5.4 H Chloride 108.6 H Carbon Dioxide 39 H BUN 60 H Creatinine Glucose 159 H POC Glucose Lactic Acid Phosphorus Magnesium AST 164 H Alkaline Phosphatase 164 H Ammonia 81.0 H Total Creatine Kinase CK-MB (CK-2) NT-Pro-B Natriuret Pep Total Protein 6.2 L Albumin 2.2 L Crossmatch 03/02/19 03/02/19 03/02/19 05:27 06:04 10:56 WBC RBC Hgb Hct MCH MCHC RDW Plt Count Lymph % (Auto) [place] # Seg Neutrophils % Seg Neuts % (Manual) Lymphocytes % (Manual) Nucleated RBC % Seg Neutrophils # Seg Neutrophils # Man Lymphocytes # (Manual) INR D-Dimer POC ABG pH ABG pH 7.239 L POC ABG pCO2 POC ABG pO2 ABG pO2 60.0 L 103.9 H ABG HCO3 36.6 H 32.9 H ABG O2 Saturation 88.3 L ABG Base Excess 7.3 H 7.7 H ABG Hemoglobin 9.1 L 9.0 L Oxyhemoglobin 86.3 L Sodium Potassium Chloride Carbon Dioxide BUN Creatinine Glucose POC Glucose Lactic Acid Phosphorus 6.90 H Magnesium 2.80 H AST Alkaline Phosphatase Ammonia Total Creatine Kinase CK-MB (CK-2) NT-Pro-B Natriuret Pep Total Protein Albumin Crossmatch 03/02/19 13:58 WBC RBC Hgb Hct MCH MCHC RDW Plt Count Lymph % (Auto) [place] # Seg Neutrophils % Seg Neuts % (Manual) Lymphocytes % (Manual) Nucleated RBC % Seg Neutrophils # Seg Neutrophils # Man Lymphocytes # (Manual) INR D-Dimer POC ABG pH ABG pH POC ABG pCO2 POC ABG pO2 ABG pO2 ABG HCO3 ABG O2 Saturation ABG Base Excess ABG Hemoglobin Oxyhemoglobin Sodium Potassium Chloride Carbon Dioxide BUN Creatinine Glucose POC Glucose 127 H Lactic Acid Phosphorus Magnesium AST Alkaline Phosphatase Ammonia Total Creatine Kinase CK-MB (CK-2) NT-Pro-B Natriuret Pep Total Protein Albumin Crossmatch Allied health notes reviewed: nursing
[2019-03-02] MEDS ORDERED: fentaNYL 100 MCG/2 ML INJ IV PRN (16:43)
[2019-03-02] MEDS: fentaNYL DRIP Premix 2,000 MCG/100 ML BAG IV SCH (17:26)
[2019-03-02 18:34] LABS: Creatinine,Urine 218.2 mg/dL (0.1-20.0)
[2019-03-02] MEDS ORDERED: SCOPOLAMINE TRANSDERMAL PATCH 72 HR TD SCH (19:00)
[2019-03-02] MEDS: GLYCOPYRROLATE 1 MG TAB PO SCH (20:28)
[2019-03-03] MEDS ORDERED: LORazepam 2 MG/ML VIAL IV ONE (01:18)
[2019-03-03] MEDS: fentaNYL DRIP Premix 2,000 MCG/100 ML BAG IV SCH ×3 (02:12→19:58)
[2019-03-03] MEDS: CEFEPIME/NS 2 GM/100 ML 2 GM/100 ML BAG IV SCH (04:00)
--- NOTE | 2019-03-03 04:05 | XRay Report ---
CHEST 1 VIEW INDICATION / CLINICAL INFORMATION: follow up respiratory failure. COMPARISON: 03/02/2019 FINDINGS: SUPPORT DEVICES: ET tube and NG tube remain in stable and satisfactory position. Right IJ Port-A-Cath and left IJ central line also remain stable in position. HEART / MEDIASTINUM: No significant abnormality. LUNGS / PLEURA: There is diffuse bilateral airspace disease not appreciably changed from yesterday's exam. However, overlying interstitial pulmonary edema may be slightly improved. Very small bilateral pleural effusions are now evident. No pneumothorax. ADDITIONAL FINDINGS: No significant additional findings. IMPRESSION: 1. Persistent significant bilateral airspace disease most likely representing pneumonia. Superimposed interstitial pulmonary edema may be slightly improved. Signer Name: Alysa Castro MD Signed: 03/03/2019 4:01 AM Workstation Name: [id number]
[2019-03-03] MEDS: methylPREDNISolone Sod Succinate 125 MG/2 ML INJ IV SCH ×3 (05:04→20:59)
[2019-03-03] MEDS: FUROSEMIDE 40 MG/4 ML INJ IV SCH (05:05)
[2019-03-03] MEDS: BENZONATATE 100 MG CAP PO SCH (05:05)
[2019-03-03] MEDS ORDERED: METOPROLOL TARTRATE 5 MG/5 ML INJ IV ONE (05:12)
[2019-03-03 05:41] LABS: Hematocrit 28.9 % (30.3-42.9); Hemoglobin 8.8 gm/dl (10.1-14.3); Mean Corpuscular HGB Conc 30 % (30-34); Mean Corpuscular Volume 80 fl (79-97); Platelet Count 373 K/mm3 (140-440); Red Blood Count 3.62 M/mm3 (3.65-5.03)
[2019-03-03 05:45] LABS: Red Cell Distribution Width 22.8 % (13.2-15.2)
[2019-03-03 05:53] LABS: ABG Base Excess 5.2 mmol/L (-2.0-3.0); ABG Methemoglobin 0.5 % (0.0-1.5); ABG PCO2 61.3 mm Hg; ABG PH 7.335 pH Units (7.350-7.450); ABG PO2 89.2 mm Hg (80.0-90.0)
[2019-03-03 06:20] LABS: Albumin 2.2 g/dL (3.9-5)
[2019-03-03 06:48] LABS: Basophils % (Manual) 0 % (0.0-1.8); Eosinophils % (Manual) 0 % (0.0-4.3); Total Cells Counted 100
[2019-03-03 06:49] LABS: Anisocytosis 1+; Hypochromasia 1+; Platelet Estimate Consistent w Auto; Stomatocytes 1+; Target Cells Few; Toxic Granulation 1+
[2019-03-03] MEDS: VASOPRESSIN 20 UNIT in SODIUM CHLORIDE 0.9% 100 ML IV SCH ×2 (07:45→19:57)
[2019-03-03] MEDS: IPRATROPIUM/ALBUTEROL SULFATE 3 ML AMPUL.NEB IH SCH ×3 (08:01→20:27)
--- NOTE | 2019-03-03 08:11 | Progress Note ---
Assessment and Plan This is a 49 year old lady with advanced Stage IV left breast cancer with metastasis to the lungs. She's status post most recent surgery on 01/29/2019 left chest wall cancer ulcerative necrotic mass of 30 cm with 30x16 cm chest wall defect and wound vac placed. Admitted for worsening shortness of breath. She notes these symptoms began approximately 3 days prior to admission. Notable to this is that the patient was admitted in late January for similar complaints secondary to a pleural effusion, and was discharged after a thoracentesis. After her mastectomy she was left with a large chest wall defect, and had initially been on wound vac. However that was discontinued due to discomfort. Afebrile, but tachycardic and leukocytosis of 13.3. Currently recently vancomycin and cefepime. Cultures are negative thus far. CTA 02/28/[address]: 1[address] No [address] evidence for pulmonary embolism. 2. Extensive mediastinal, bilateral hilar and axillary adenopathy has progressed. 3. 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 4. Extensive new liver metastases and left adrenal metastasis. 4. Cholelithiasis, unchanged. - Acute respr failure with hypoxia edema versus pneumonia. Intubated and on MVS 03/01/19 On Lasix On iv Abx Cefepime and vancomycin Pulmonology consulted - Sepsis with leukocytosis, fever, tachy, lactic acidosis Blood cultures drawn - Bilateral opacities: pulmonary edema versus pneumonia On lasix and Antibiotics consult ID Physician - Recurrent pleural effusion s/p thoracentesis recent - Left breast cancer with mets to the bones and liver s/p surgery Dr. Self following [facility]. ET nurse consult - Heart failure withelevated BNP Obtian ECHO - Hyperammonemia Contlactulose - Hypernatrmia Free water via [place] - Hypertension Monitor BP - ELevated D- dimer CT angio was negative for PE - Code status: [facility] still wants her to be full code. Will initiate discussion on hospice transfer with family. Poor prognosis. Subjective Date of service: 03/03/19 Principal diagnosis: Ac. hypoxemic resp failure; Sev Sepsis; R. pleural effusion; Met. breast CA Interval history: Patient seen and examined. Remains intubated and connected to mechanical ventilation since 03/01/19. Sedated. discusseed with pt's nurse. No overnight event reported to me Objective - Exam Narrative Exam: Constitutional: Well-nourished well-developed. Intubated and connected to mechanical ventilator for 48 hrs Head: Normocephalic atraumatic Eyes: Pupils are equal round and reactive to light Nose: No enlarged turbinates, no septal deviation. Mouth: Moist mucous membranes. ET tube in place Neck: Supple no thyromegaly. No bruit. No JVD Heart: Regular rate and rhythm, S1-S2 normal. No rubs murmurs or gallop Lungs: Decreased breath sounds bilaterally with rales Abdomen: Soft, nontender. Bowel sound are present. Extremities: Left upper extremity edema, cyanosis, no clubbing. Neuro:intubated and sedated Skin: large ant. chest wall wound with dress dressing. No rashes or hyperpigmented spots Musculoskeletal system: No joint pain or swelling Hematological: No petechia or subcutanous hemorrhages. Immunological: No multiple septic spots on the skin Lymphatic: No generalized lymphadenopathy Psychiatry: intubated and sedated - Constitutional Vitals: Vital Signs - 12hr 03/02/19 03/02/19 03/02/19 20:10 20:20 20:27 Temperature Pulse Rate 86 95 H 103 H Pulse Rate [ Anterior Throughout] Pulse Rate [ Apical] Pulse Rate [ Posterior Bilateral Throughout] Respiratory 26 H 26 H Rate Respiratory Rate [Anterior Throughout] Respiratory Rate [Posterior Bilateral Throughout] Blood Pressure 133/63 110/54 110/54 O2 Sat by Pulse 94 95 95 Oximetry 03/02/19 03/02/19 03/02/19 20:30 20:35 20:40 Temperature Pulse Rate 109 H 72 Pulse Rate [ 128 H Anterior Throughout] Pulse Rate [ Apical] Pulse Rate [ Posterior Bilateral Throughout] Respiratory 24 13 Rate Respiratory 30 H Rate [Anterior Throughout] Respiratory Rate [Posterior Bilateral Throughout] Blood Pressure 120/63 120/63 O2 Sat by Pulse 94 79 L Oximetry 03/02/19 03/02/19 03/02/19 20:50 21:00 21:10 Temperature Pulse Rate 136 H 127 H 124 H Pulse Rate [ Anterior Throughout] Pulse Rate [ Apical] Pulse Rate [ Posterior Bilateral Throughout] Respiratory 27 H 27 H 27 H Rate Respiratory Rate [Anterior Throughout] Respiratory Rate [Posterior Bilateral Throughout] Blood Pressure 134/67 122/66 122/66 O2 Sat by Pulse 93 94 94 Oximetry 1103/02/19 03/02/19 21:20 21:30 21:40 Temperature Pulse Rate 127 H 123 H 104 H Pulse Rate [ Anterior Throughout] Pulse Rate [ Apical] Pulse Rate [ Posterior Bilateral Throughout] Respiratory 28 H 26 H 27 H Rate Respiratory Rate [Anterior Throughout] Respiratory Rate [Posterior Bilateral Throughout] Blood Pressure 129/64 118/61 118/61 O2 Sat by Pulse 96 96 93 Oximetry 03/02/19 03/02/19 03/02/19 21:50 22:00 22:10 Temperature Pulse Rate 124 H 100 H 115 H Pulse Rate [ Anterior Throughout] Pulse Rate [ Apical] Pulse Rate [ Posterior Bilateral Throughout] Respiratory 27 H 26 H 25 H Rate Respiratory Rate [Anterior Throughout] Respiratory Rate [Posterior Bilateral Throughout] Blood Pressure 121/64 118/72 118/72 O2 Sat by Pulse 93 93 93 Oximetry 03/02/19 03/02/19 03/02/19 22:20 22:30 22:40 Temperature Pulse Rate 121 H 116 H 124 H Pulse Rate [ Anterior Throughout] Pulse Rate [ Apical] Pulse Rate [ Posterior Bilateral Throughout] Respiratory 28 H 29 H 28 H Rate Respiratory Rate [Anterior Throughout] Respiratory Rate [Posterior Bilateral Throughout] Blood Pressure 129/66 113/70 113/70 O2 Sat by Pulse 93 93 93 Oximetry 03/02/19 03/02/19 03/02/19 22:50 23:00 23:04 Temperature Pulse Rate 108 H 106 H 125 H Pulse Rate [ Anterior Throughout] Pulse Rate [ Apical] Pulse Rate [ Posterior Bilateral Throughout] Respiratory 29 H 26 H 28 H Rate Respiratory Rate [Anterior Throughout] Respiratory Rate [Posterior Bilateral Throughout] Blood Pressure 128/67 110/66 110/66 O2 Sat by Pulse 95 95 94 Oximetry 03/02/19 03/02/19 03/02/19 23:10 23:20 23:30 Temperature Pulse Rate 104 H 109 H 110 H Pulse Rate [ Anterior Throughout] Pulse Rate [ Apical] Pulse Rate [ Posterior Bilateral Throughout] Respiratory 27 H 27 H 16 Rate Respiratory Rate [Anterior Throughout] Respiratory Rate [Posterior Bilateral Throughout] Blood Pressure 110/66 128/63 137/83 O2 Sat by Pulse 94 96 94 Oximetry 03/02/19 03/02/19 03/03/19 23:40 23:50 00:00 Temperature 99.7 F H Pulse Rate 111 H 96 H 126 H Pulse Rate [ Anterior Throughout] Pulse Rate [ 91 H Apical] Pulse Rate [ Posterior Bilateral Throughout] Respiratory 29 H 28 H 28 H Rate Respiratory Rate [Anterior Throughout] Respiratory Rate [Posterior Bilateral Throughout] Blood Pressure 128/63 118/67 119/65 O2 Sat by Pulse 94 94 94 Oximetry 03/03/19 03/03/19 03/03/19 00:10 00:20 00:30 Temperature Pulse Rate 117 H 126 H 117 H Pulse Rate [ Anterior Throughout] Pulse Rate [ Apical] Pulse Rate [ Posterior Bilateral Throughout] Respiratory 28 H 29 H 26 H Rate Respiratory Rate [Anterior Throughout] Respiratory Rate [Posterior Bilateral Throughout] Blood Pressure 119/65 119/63 112/59 O2 Sat by Pulse 93 93 94 Oximetry 03/03/19 03/03/19 03/03/19 00:40 00:44 00:50 Temperature Pulse Rate 122 H 127 H 106 H Pulse Rate [ Anterior Throughout] Pulse Rate [ Apical] Pulse Rate [ Posterior Bilateral Throughout] Respiratory 26 H 26 H Rate Respiratory Rate [Anterior Throughout] Respiratory Rate [Posterior Bilateral Throughout] Blood Pressure 112/59 112/59 112/61 O2 Sat by Pulse 94 94 91 Oximetry 03/03/19 03/03/19 03/03/19 01:00 01:10 01:20 Temperature Pulse Rate 107 H 114 H 122 H Pulse Rate [ Anterior Throughout] Pulse Rate [ Apical] Pulse Rate [ Posterior Bilateral Throughout] Respiratory 12 30 H 22 Rate Respiratory Rate [Anterior Throughout] Respiratory Rate [Posterior Bilateral Throughout] Blood Pressure 137/73 137/73 131/75 O2 Sat by Pulse 93 90 91 Oximetry 03/03/19 03/03/19 03/03/19 01:30 01:40 01:50 Temperature Pulse Rate 128 H 129 H 122 H Pulse Rate [ Anterior Throughout] Pulse Rate [ Apical] Pulse Rate [ Posterior Bilateral Throughout] Respiratory 28 H 30 H 14 Rate Respiratory Rate [Anterior Throughout] Respiratory Rate [Posterior Bilateral Throughout] Blood Pressure 103/59 103/59 105/53 O2 Sat by Pulse 77 L 90 84 Oximetry 03/03/19 03/03/19 03/03/19 02:00 02:10 02:20 Temperature Pulse Rate 135 H 133 H 135 H Pulse Rate [ Anterior Throughout] Pulse Rate [ Apical] Pulse Rate [ Posterior Bilateral Throughout] Respiratory 25 H 24 25 H Rate Respiratory Rate [Anterior Throughout] Respiratory Rate [Posterior Bilateral Throughout] Blood Pressure 102/59 102/59 106/58 O2 Sat by Pulse 91 95 Oximetry 03/03/19 03/03/19 03/03/19 02:30 02:40 02:50 Temperature Pulse Rate 135 H 132 H 132 H Pulse Rate [ Anterior Throughout] Pulse Rate [ Apical] Pulse Rate [ Posterior Bilateral Throughout] Respiratory 25 H 25 H 25 H Rate Respiratory Rate [Anterior Throughout] Respiratory Rate [Posterior Bilateral Throughout] Blood Pressure 91/54 95/51 103/58 O2 Sat by Pulse 96 95 Oximetry 03/03/19 03/03/19 03/03/19 03:00 03:10 03:20 Temperature Pulse Rate 130 H 130 H 130 H Pulse Rate [ Anterior Throughout] Pulse Rate [ Apical] Pulse Rate [ Posterior Bilateral Throughout] Respiratory 25 H 25 H 25 H Rate Respiratory Rate [Anterior Throughout] Respiratory Rate [Posterior Bilateral Throughout] Blood Pressure 112/58 112/58 104/61 O2 Sat by Pulse 96 96 96 Oximetry 03/03/19 03/03/19 03/03/19 03:30 03:40 03:50 Temperature Pulse Rate 127 H 127 H 130 H Pulse Rate [ Anterior Throughout] Pulse Rate [ Apical] Pulse Rate [ Posterior Bilateral Throughout] Respiratory 17 25 H 22 Rate Respiratory Rate [Anterior Throughout] Respiratory Rate [Posterior Bilateral Throughout] Blood Pressure 93/54 93/54 114/66 O2 Sat by Pulse 95 96 96 Oximetry 03/03/19 03/03/19 03/03/19 04:00 04:10 04:20 Temperature 98.8 F Pulse Rate 128 H 129 H 129 H Pulse Rate [ Anterior Throughout] Pulse Rate [ 130 H Apical] Pulse Rate [ Posterior Bilateral Throughout] Respiratory 25 H 25 H 25 H Rate Respiratory Rate [Anterior Throughout] Respiratory Rate [Posterior Bilateral Throughout] Blood Pressure 107/62 107/62 107/64 O2 Sat by Pulse 97 96 96 Oximetry 03/03/19 03/03/19 03/03/19 04:30 04:40 04:50 Temperature Pulse Rate 127 H 128 H 130 H Pulse Rate [ Anterior Throughout] Pulse Rate [ Apical] Pulse Rate [ Posterior Bilateral Throughout] Respiratory 25 H 25 H 25 H Rate Respiratory Rate [Anterior Throughout] Respiratory Rate [Posterior Bilateral Throughout] Blood Pressure 110/64 110/64 107/64 O2 Sat by Pulse 96 96 96 Oximetry 03/03/19 03/03/19 03/03/19 05:00 05:10 05:16 Temperature Pulse Rate 130 H 125 H Pulse Rate [ Anterior Throughout] Pulse Rate [ Apical] Pulse Rate [ Posterior Bilateral Throughout] Respiratory 25 H 17 Rate Respiratory Rate [Anterior Throughout] Respiratory Rate [Posterior Bilateral Throughout] Blood Pressure 115/64 115/64 97/57 O2 Sat by Pulse 96 95 97 Oximetry 03/03/19 03/03/19 03/03/19 05:20 05:22 05:30 Temperature Pulse Rate 128 H 128 H 104 H Pulse Rate [ Anterior Throughout] Pulse Rate [ Apical] Pulse Rate [ Posterior Bilateral Throughout] Respiratory 11 L 15 Rate Respiratory Rate [Anterior Throughout] Respiratory Rate [Posterior Bilateral Throughout] Blood Pressure 107/60 107/60 96/60 O2 Sat by Pulse 97 97 Oximetry 03/03/19 03/03/19 03/03/19 05:40 05:50 06:00 Temperature Pulse Rate 110 H 115 H 116 H Pulse Rate [ Anterior Throughout] Pulse Rate [ Apical] Pulse Rate [ Posterior Bilateral Throughout] Respiratory 19 21 9 L Rate Respiratory Rate [Anterior Throughout] Respiratory Rate [Posterior Bilateral Throughout] Blood Pressure 96/60 107/65 106/67 O2 Sat by Pulse 97 97 97 Oximetry 03/03/19 03/03/19 03/03/19 06:10 06:20 06:30 Temperature Pulse Rate 118 H 121 H 116 H Pulse Rate [ Anterior Throughout] Pulse Rate [ Apical] Pulse Rate [ Posterior Bilateral Throughout] Respiratory 13 18 25 H Rate Respiratory Rate [Anterior Throughout] Respiratory Rate [Posterior Bilateral Throughout] Blood Pressure 106/67 118/65 111/62 O2 Sat by Pulse 97 94 96 Oximetry 03/03/19 03/03/19 03/03/19 06:40 06:50 07:00 Temperature Pulse Rate 118 H 118 H 116 H Pulse Rate [ Anterior Throughout] Pulse Rate [ Apical] Pulse Rate [ Posterior Bilateral Throughout] Respiratory 22 25 H 25 H Rate Respiratory Rate [Anterior Throughout] Respiratory Rate [Posterior Bilateral Throughout] Blood Pressure 111/62 105/61 109/62 O2 Sat by Pulse 97 97 97 Oximetry 03/03/19 03/03/19 07:04 08:00 Temperature Pulse Rate Pulse Rate [ 102 H Anterior Throughout] Pulse Rate [ 118 H Apical] Pulse Rate [ 116 H Posterior Bilateral Throughout] Respiratory 25 H Rate Respiratory 26 H Rate [Anterior Throughout] Respiratory 28 H Rate [Posterior Bilateral Throughout] Blood Pressure O2 Sat by Pulse 97 Oximetry - Labs CBC & Chem 7: 03/03/19 05:00 03/03/19 05:00 Labs: Abnormal lab results 02/27/19 03/02/19 03/02/19 Range/Units 11:45 05:27 05:27 WBC (4.5-11.0) K/mm3 RBC (3.65-5.03) M/mm3 Hgb (10.1-14.3) gm/dl Hct (30.3-42.9) % MCH (28-32) pg RDW (13.2-15.2) % Seg Neuts % (Manual) 94.0 H (40.0-70.0) % Lymphocytes % (Manual) 2.0 L (13.4-35.0) % Nucleated RBC % 1.0 H (0.0-0.9) % Seg Neutrophils # Man 16.7 H (1.8-7.7) K/mm3 Lymphocytes # (Manual) 0.4 L (1.2-5.4) K/mm3 ABG pH (7.350-7.450) pH Units ABG pO2 (80.0-90.0) mm Hg ABG HCO3 (20.0-26.0) mmol/L ABG Base Excess (-2.0-3.0) mmol/L ABG Hemoglobin (12.0-16.0) gm/dl Oxyhemoglobin (95.0-99.0) % Sodium (137-145) mmol/L Potassium (3.6-5.0) mmol/L Chloride (98-107) mmol/L BUN (7-17) mg/dL Creatinine (0.7-1.2) mg/dL Glucose (65-100) mg/dL POC Glucose (70-105) Magnesium (1.7-2.3) mg/dL AST (5-40) units/L ALT (7-56) units/L Alkaline Phosphatase (35-129) units/L NT-Pro-B Natriuret Pep 2143 H (0-900) pg/mL Total Protein (6.3-8.2) g/dL Albumin (3.9-5) g/dL Urine Creatinine (0.1-20.0) mg/dL Crossmatch See Detail 03/02/19 03/02/19 03/02/19 Range/Units 10:56 13:58 23:40 WBC (4.5-11.0) K/mm3 RBC (3.65-5.03) M/mm3 Hgb (10.1-14.3) gm/dl Hct (30.3-42.9) % MCH (28-32) pg RDW (13.2-15.2) % Seg Neuts % (Manual) (40.0-70.0) % Lymphocytes % (Manual) (13.4-35.0) % Nucleated RBC % (0.0-0.9) % Seg Neutrophils # Man (1.8-7.7) K/mm3 Lymphocytes # (Manual) (1.2-5.4) K/mm3 ABG pH (7.350-7.450) pH Units ABG pO2 103.9 H (80.0-90.0) mm Hg ABG HCO3 32.9 H (20.0-26.0) mmol/L ABG Base Excess 7.7 H (-2.0-3.0) mmol/L ABG Hemoglobin 9.0 L (12.0-16.0) gm/dl Oxyhemoglobin (95.0-99.0) % Sodium (137-145) mmol/L Potassium (3.6-5.0) mmol/L Chloride (98-107) mmol/L BUN (7-17) mg/dL Creatinine (0.7-1.2) mg/dL Glucose (65-100) mg/dL POC Glucose 127 H 161 H (70-105) Magnesium (1.7-2.3) mg/dL AST (5-40) units/L ALT (7-56) units/L Alkaline Phosphatase (35-129) units/L NT-Pro-B Natriuret Pep (0-900) pg/mL Total Protein (6.3-8.2) g/dL Albumin (3.9-5) g/dL Urine Creatinine (0.1-20.0) mg/dL Crossmatch 03/02/19 03/03/19 03/03/19 Range/Units Unknown 05:00 05:00 WBC 17.8 H (4.5-11.0) K/mm3 RBC 3.62 L (3.65-5.03) M/mm3 Hgb 8.8 L (10.1-14.3) gm/dl Hct 28.9 L (30.3-42.9) % MCH 24 L (28-32) pg RDW 22.8 H (13.2-15.2) % Seg Neuts % (Manual) 96.0 H (40.0-70.0) % Lymphocytes % (Manual) 1.0 L (13.4-35.0) % Nucleated RBC % 3.0 H (0.0-0.9) % Seg Neutrophils # Man 17.1 H (1.8-7.7) K/mm3 Lymphocytes # (Manual) 0.2 L (1.2-5.4) K/mm3 ABG pH (7.350-7.450) pH Units ABG pO2 (80.0-90.0) mm Hg ABG HCO3 (20.0-26.0) mmol/L ABG Base Excess (-2.0-3.0) mmol/L ABG Hemoglobin (12.0-16.0) gm/dl Oxyhemoglobin (95.0-99.0) % Sodium 160 H (137-145) mmol/L Potassium 3.5 L D (3.6-5.0) mmol/L Chloride 113.7 H (98-107) mmol/L BUN 90 H (7-17) mg/dL Creatinine 1.7 H D (0.7-1.2) mg/dL Glucose 149 H (65-100) mg/dL POC Glucose (70-105) Magnesium 2.90 H (1.7-2.3) mg/dL AST 624 H (5-40) units/L ALT 211 H (7-56) units/L Alkaline Phosphatase 416 H (35-129) units/L NT-Pro-B Natriuret Pep (0-900) pg/mL Total Protein 6.2 L (6.3-8.2) g/dL Albumin 2.2 L (3.9-5) g/dL Urine Creatinine 218.2 H (0.1-20.0) mg/dL Crossmatch 03/03/19 03/03/19 Range/Units 05:25 05:41 WBC (4.5-11.0) K/mm3 RBC (3.65-5.03) M/mm3 Hgb (10.1-14.3) gm/dl Hct (30.3-42.9) % MCH (28-32) pg RDW (13.2-15.2) % Seg Neuts % (Manual) (40.0-70.0) % Lymphocytes % (Manual) (13.4-35.0) % Nucleated RBC % (0.0-0.9) % Seg Neutrophils # Man (1.8-7.7) K/mm3 Lymphocytes # (Manual) (1.2-5.4) K/mm3 ABG pH 7.335 L (7.350-7.450) pH Units ABG pO2 (80.0-90.0) mm Hg ABG HCO3 32.0 H (20.0-26.0) mmol/L ABG Base Excess 5.2 H (-2.0-3.0) mmol/L ABG Hemoglobin 8.2 L (12.0-16.0) gm/dl Oxyhemoglobin 94.9 L (95.0-99.0) % Sodium (137-145) mmol/L Potassium (3.6-5.0) mmol/L Chloride (98-107) mmol/L BUN (7-17) mg/dL Creatinine (0.7-1.2) mg/dL Glucose (65-100) mg/dL POC Glucose 150 H (70-105) Magnesium (1.7-2.3) mg/dL AST (5-40) units/L ALT (7-56) units/L Alkaline Phosphatase (35-129) units/L NT-Pro-B Natriuret Pep (0-900) pg/mL Total Protein (6.3-8.2) g/dL Albumin (3.9-5) g/dL Urine Creatinine (0.1-20.0) mg/dL Crossmatch
--- NOTE | 2019-03-03 08:19 | Progress Note ---
Assessment and Plan Acute hypoxemic-hypercapnic respiratory failure now on MVS Severe sepsis with septic shock ARDS HAP/aspiration pneumonia Right pleural effusion s/p thoracentesis Metastatic breast cancer Hypernatremia Poor medical compliance Obesity - Wean vasopressor support for MAP>65, currently on norepinephrine and vasopressin -Volume resuscitation per sepsis protocol -VAP bundle addressed -Aspiration precautions, HOB>40 degrees - Lung protective strategies -Adjust minute ventilation for better acid-base balance -CXR, ABG in am -CBC, BMP and lactic acid in am -Daily SAT, SBT as tolerated -Place small bowel feeding tube fro nutritional support -Empiric antibiotics for aspiration PNA, de-escalate based on cultures and clinical status -VTE prophylaxis -Stress ulcer prophylaxis -Free water flushes once feeding tube placement is confirmed - Accuchecks with glycemic control for SSI (While critically ill target blood glucose of 140-180 mg/dL; avoid hypoglycemia) - mobility protocol for pressure ulcer prevention - Monitor hemodynamics closely -Monitor electrolyte profile closely and replete as indicated -Chronic home medications, resume as clinically indicated -Hold off on CT scan of the brain today as her hemodynamics are unstable. She is on high ventilatory settings and is unstable for transport. Will reassess her neurologic status and decide on timing of head CT/neuro imaging -Mercado catheter in this critically ill patient, with poor urine output, requiring accurate intake and output monitoring. -Wound care CONDITION: CRITICAL PROGNOSIS: GUARDED-POOR CODE STATUS: FULL CODE The high probability of a clinically significant, sudden or life-threatening deterioration of the [respiratory, cardiovascular] system(s) required my full and direct attention, intervention and personal management. The aggregate critical care time was [35] minutes without overlap. Time includes spent on; [x] Data Review and interpretation [x] Patient assessment and monitoring of vital signs [x] Documentation [x] Medication orders and management Subjective Date of service: 03/03/19 Principal diagnosis: Ac. hypoxemic resp failure; Sev Sepsis; R. pleural effusion; Met. breast CA Interval history: Patient is seen today for: Acute hypoxemic-hypercapnic respiratory failure; severe Sepsis with septic shock,HAP; ARDS; Right pleural effusion s/p thoracentesis; Metastatic breast cancer; Hypernatremia; Poor medical compliance; Obesity Seen and examined at bedside; 24hour events reviewed; nursing and respiratory care staff consulted; overnight events discussed; Remains critically ill on mechanical ventilatory support; on vasopressor support; on fenatnyl at 3mcg, on SAT was restless but not purposeful; LIJ to CVP, CVP worsening renal function Objective Vital Signs - 12hr 03/02/19 03/02/19 03/02/19 20:20 20:27 20:30 Temperature Pulse Rate 95 H 103 H 109 H Pulse Rate [ Anterior Throughout] Pulse Rate [ Apical] Pulse Rate [ Posterior Bilateral Throughout] Respiratory 26 H 24 Rate Respiratory Rate [Anterior Throughout] Respiratory Rate [Posterior Bilateral Throughout] Blood Pressure 110/54 110/54 120/63 O2 Sat by Pulse 95 95 94 Oximetry 03/02/19 03/02/19 03/02/19 20:35 20:40 20:50 Temperature Pulse Rate 72 136 H Pulse Rate [ 128 H Anterior Throughout] Pulse Rate [ Apical] Pulse Rate [ Posterior Bilateral Throughout] Respiratory 13 27 H Rate Respiratory 30 H Rate [Anterior Throughout] Respiratory Rate [Posterior Bilateral Throughout] Blood Pressure 120/63 134/67 O2 Sat by Pulse 79 L 93 Oximetry 03/02/19 03/02/19 03/02/19 21:00 21:10 21:20 Temperature Pulse Rate 127 H 124 H 127 H Pulse Rate [ Anterior Throughout] Pulse Rate [ Apical] Pulse Rate [ Posterior Bilateral Throughout] Respiratory 27 H 27 H 28 H Rate Respiratory Rate [Anterior Throughout] Respiratory Rate [Posterior Bilateral Throughout] Blood Pressure 122/66 122/66 129/64 O2 Sat by Pulse 94 94 96 Oximetry 03/02/19 03/02/19 03/02/19 21:30 21:40 21:50 Temperature Pulse Rate 123 H 104 H 124 H Pulse Rate [ Anterior Throughout] Pulse Rate [ Apical] Pulse Rate [ Posterior Bilateral Throughout] Respiratory 26 H 27 H 27 H Rate Respiratory Rate [Anterior Throughout] Respiratory Rate [Posterior Bilateral Throughout] Blood Pressure 118/61 118/61 121/64 O2 Sat by Pulse 96 93 93 Oximetry 03/02/19 03/02/19 03/02/19 22:00 22:10 22:20 Temperature Pulse Rate 100 H 115 H 121 H Pulse Rate [ Anterior Throughout] Pulse Rate [ Apical] Pulse Rate [ Posterior Bilateral Throughout] Respiratory 26 H 25 H 28 H Rate Respiratory Rate [Anterior Throughout] Respiratory Rate [Posterior Bilateral Throughout] Blood Pressure 118/72 118/72 129/66 O2 Sat by Pulse 93 93 93 Oximetry 03/02/19 03/02/19 03/02/19 22:30 22:40 22:50 Temperature Pulse Rate 116 H 124 H 108 H Pulse Rate [ Anterior Throughout] Pulse Rate [ Apical] Pulse Rate [ Posterior Bilateral Throughout] Respiratory 29 H 28 H 29 H Rate Respiratory Rate [Anterior Throughout] Respiratory Rate [Posterior Bilateral Throughout] Blood Pressure 113/70 113/70 128/67 O2 Sat by Pulse 93 93 95 Oximetry 03/02/19 03/02/19 03/02/19 23:00 23:04 23:10 Temperature Pulse Rate 106 H 125 H 104 H Pulse Rate [ Anterior Throughout] Pulse Rate [ Apical] Pulse Rate [ Posterior Bilateral Throughout] Respiratory 26 H 28 H 27 H Rate Respiratory Rate [Anterior Throughout] Respiratory Rate [Posterior Bilateral Throughout] Blood Pressure 110/66 110/66 110/66 O2 Sat by Pulse 95 94 94 Oximetry 03/02/19 03/02/19 03/02/19 23:20 23:30 23:40 Temperature Pulse Rate 109 H 110 H 111 H Pulse Rate [ Anterior Throughout] Pulse Rate [ Apical] Pulse Rate [ Posterior Bilateral Throughout] Respiratory 27 H 16 29 H Rate Respiratory Rate [Anterior Throughout] Respiratory Rate [Posterior Bilateral Throughout] Blood Pressure 128/63 137/83 128/63 O2 Sat by Pulse 96 94 94 Oximetry 03/02/19 03/03/19 03/03/19 23:50 00:00 00:10 Temperature 99.7 F H Pulse Rate 96 H 126 H 117 H Pulse Rate [ Anterior Throughout] Pulse Rate [ 91 H Apical] Pulse Rate [ Posterior Bilateral Throughout] Respiratory 28 H 28 H 28 H Rate Respiratory Rate [Anterior Throughout] Respiratory Rate [Posterior Bilateral Throughout] Blood Pressure 118/67 119/65 119/65 O2 Sat by Pulse 94 94 93 Oximetry 03/03/19 03/03/19 03/03/19 00:20 00:30 00:40 Temperature Pulse Rate 126 H 117 H 122 H Pulse Rate [ Anterior Throughout] Pulse Rate [ Apical] Pulse Rate [ Posterior Bilateral Throughout] Respiratory 29 H 26 H 26 H Rate Respiratory Rate [Anterior Throughout] Respiratory Rate [Posterior Bilateral Throughout] Blood Pressure 119/63 112/59 112/59 O2 Sat by Pulse 93 94 94 Oximetry 03/03/19 03/03/19 03/03/19 00:44 00:50 01:00 Temperature Pulse Rate 127 H 106 H 107 H Pulse Rate [ Anterior Throughout] Pulse Rate [ Apical] Pulse Rate [ Posterior Bilateral Throughout] Respiratory 26 H 12 Rate Respiratory Rate [Anterior Throughout] Respiratory Rate [Posterior Bilateral Throughout] Blood Pressure 112/59 112/61 137/73 O2 Sat by Pulse 94 91 93 Oximetry 03/03/19 03/03/19 03/03/19 01:10 01:20 01:30 Temperature Pulse Rate 114 H 122 H 128 H Pulse Rate [ Anterior Throughout] Pulse Rate [ Apical] Pulse Rate [ Posterior Bilateral Throughout] Respiratory 30 H 22 28 H Rate Respiratory Rate [Anterior Throughout] Respiratory Rate [Posterior Bilateral Throughout] Blood Pressure 137/73 131/75 103/59 O2 Sat by Pulse 90 91 77 L Oximetry 03/03/19 03/03/19 03/03/19 01:40 01:50 02:00 Temperature Pulse Rate 129 H 122 H 135 H Pulse Rate [ Anterior Throughout] Pulse Rate [ Apical] Pulse Rate [ Posterior Bilateral Throughout] Respiratory 30 H 14 25 H Rate Respiratory Rate [Anterior Throughout] Respiratory Rate [Posterior Bilateral Throughout] Blood Pressure 103/59 105/53 102/59 O2 Sat by Pulse 90 84 91 Oximetry 03/03/19 03/03/19 03/03/19 02:10 02:20 02:30 Temperature Pulse Rate 133 H 135 H 135 H Pulse Rate [ Anterior Throughout] Pulse Rate [ Apical] Pulse Rate [ Posterior Bilateral Throughout] Respiratory 24 25 H 25 H Rate Respiratory Rate [Anterior Throughout] Respiratory Rate [Posterior Bilateral Throughout] Blood Pressure 102/59 106/58 91/54 O2 Sat by Pulse 95 Oximetry 03/03/19 03/03/19 03/03/19 02:40 02:50 03:00 Temperature Pulse Rate 132 H 132 H 130 H Pulse Rate [ Anterior Throughout] Pulse Rate [ Apical] Pulse Rate [ Posterior Bilateral Throughout] Respiratory 25 H 25 H 25 H Rate Respiratory Rate [Anterior Throughout] Respiratory Rate [Posterior Bilateral Throughout] Blood Pressure 95/51 103/58 112/58 O2 Sat by Pulse 96 95 96 Oximetry 03/03/19 03/03/19 03/03/19 03:10 03:20 03:30 Temperature Pulse Rate 130 H 130 H 127 H Pulse Rate [ Anterior Throughout] Pulse Rate [ Apical] Pulse Rate [ Posterior Bilateral Throughout] Respiratory 25 H 25 H 17 Rate Respiratory Rate [Anterior Throughout] Respiratory Rate [Posterior Bilateral Throughout] Blood Pressure 112/58 104/61 93/54 O2 Sat by Pulse 96 96 95 Oximetry 03/03/19 03/03/19 03/03/19 03:40 03:50 04:00 Temperature 98.8 F Pulse Rate 127 H 130 H 128 H Pulse Rate [ Anterior Throughout] Pulse Rate [ 130 H Apical] Pulse Rate [ Posterior Bilateral Throughout] Respiratory 25 H 22 25 H Rate Respiratory Rate [Anterior Throughout] Respiratory Rate [Posterior Bilateral Throughout] Blood Pressure 93/54 114/66 107/62 O2 Sat by Pulse 96 96 97 Oximetry 03/03/19 03/03/19 03/03/19 04:10 04:20 04:30 Temperature Pulse Rate 129 H 129 H 127 H Pulse Rate [ Anterior Throughout] Pulse Rate [ Apical] Pulse Rate [ Posterior Bilateral Throughout] Respiratory 25 H 25 H 25 H Rate Respiratory Rate [Anterior Throughout] Respiratory Rate [Posterior Bilateral Throughout] Blood Pressure 107/62 107/64 110/64 O2 Sat by Pulse 96 96 96 Oximetry 03/03/19 03/03/19 03/03/19 04:40 04:50 05:00 Temperature Pulse Rate 128 H 130 H 130 H Pulse Rate [ Anterior Throughout] Pulse Rate [ Apical] Pulse Rate [ Posterior Bilateral Throughout] Respiratory 25 H 25 H 25 H Rate Respiratory Rate [Anterior Throughout] Respiratory Rate [Posterior Bilateral Throughout] Blood Pressure 110/64 107/64 115/64 O2 Sat by Pulse 96 96 96 Oximetry 03/03/19 03/03/19 03/03/19 05:10 05:16 05:20 Temperature Pulse Rate 125 H 128 H Pulse Rate [ Anterior Throughout] Pulse Rate [ Apical] Pulse Rate [ Posterior Bilateral Throughout] Respiratory 17 11 L Rate Respiratory Rate [Anterior Throughout] Respiratory Rate [Posterior Bilateral Throughout] Blood Pressure 115/64 97/57 107/60 O2 Sat by Pulse 95 97 97 Oximetry 03/03/19 03/03/19 03/03/19 05:22 05:30 05:40 Temperature Pulse Rate 128 H 104 H 110 H Pulse Rate [ Anterior Throughout] Pulse Rate [ Apical] Pulse Rate [ Posterior Bilateral Throughout] Respiratory 15 19 Rate Respiratory Rate [Anterior Throughout] Respiratory Rate [Posterior Bilateral Throughout] Blood Pressure 107/60 96/60 96/60 O2 Sat by Pulse 97 97 Oximetry 03/03/19 03/03/19 03/03/19 05:50 06:00 06:10 Temperature Pulse Rate 115 H 116 H 118 H Pulse Rate [ Anterior Throughout] Pulse Rate [ Apical] Pulse Rate [ Posterior Bilateral Throughout] Respiratory 21 9 L 13 Rate Respiratory Rate [Anterior Throughout] Respiratory Rate [Posterior Bilateral Throughout] Blood Pressure 107/65 106/67 106/67 O2 Sat by Pulse 97 97 97 Oximetry 03/03/19 03/03/19 03/03/19 06:20 06:30 06:40 Temperature Pulse Rate 121 H 116 H 118 H Pulse Rate [ Anterior Throughout] Pulse Rate [ Apical] Pulse Rate [ Posterior Bilateral Throughout] Respiratory 18 25 H 22 Rate Respiratory Rate [Anterior Throughout] Respiratory Rate [Posterior Bilateral Throughout] Blood Pressure 118/65 111/62 111/62 O2 Sat by Pulse 94 96 97 Oximetry 03/03/19 03/03/19 03/03/19 06:50 07:00 07:04 Temperature Pulse Rate 118 H 116 H Pulse Rate [ Anterior Throughout] Pulse Rate [ 118 H Apical] Pulse Rate [ Posterior Bilateral Throughout] Respiratory 25 H 25 H 25 H Rate Respiratory Rate [Anterior Throughout] Respiratory Rate [Posterior Bilateral Throughout] Blood Pressure 105/61 109/62 O2 Sat by Pulse 97 97 97 Oximetry 03/03/19 03/03/19 03/03/19 07:10 07:20 07:30 Temperature Pulse Rate 118 H 119 H 114 H Pulse Rate [ Anterior Throughout] Pulse Rate [ Apical] Pulse Rate [ Posterior Bilateral Throughout] Respiratory 25 H 25 H 22 Rate Respiratory Rate [Anterior Throughout] Respiratory Rate [Posterior Bilateral Throughout] Blood Pressure 109/62 110/59 114/63 O2 Sat by Pulse 97 97 Oximetry 03/03/19 03/03/19 03/03/19 07:40 07:50 08:00 Temperature Pulse Rate 125 H 115 H 121 H Pulse Rate [ 102 H Anterior Throughout] Pulse Rate [ Apical] Pulse Rate [ 116 H Posterior Bilateral Throughout] Respiratory 25 H 25 H 26 H Rate Respiratory 26 H Rate [Anterior Throughout] Respiratory 28 H Rate [Posterior Bilateral Throughout] Blood Pressure 114/63 114/62 108/60 O2 Sat by Pulse 93 94 94 Oximetry Constitutional: lethargic, other (middle aged obese AAF with mildly increased respiratory distress on MVS) Eyes: icteric ENT: other (Small bowel feeding tube in place, 7.[address] 23cm at the lip) Neck: supple, no lymphadenopathy, no JVD, other (Left IJ CVC; large neck circumference) Effort: mildly labored Ascultation: Bilateral: diminished breath sounds, rales Percussion: Bilateral: not dull Cardiovascular: regular rate and rhythm, other (Tachycardia S1,S2, no murmurs. Anterior chest wall dressing) Gastrointestinal: normoactive bowel sounds, soft, non-tender, non-distended Integumentary: other (Chest wall wound) Extremities: no cyanosis, pulses normal, no ischemia or petechiae, edema, other (edema) Neurologic: non-focal exam (grossly), pupils equal and round, motor strength normal and, other (somnolent) Psychiatric: other (unable to assess re: AMS) CBC and BMP: 03/04/19 04:38 03/04/19 04:38 ABG, PT/INR, D-dimer: ABG POC ABG pH 7.056 (7.35-7.45) L 03/02/19 04:32 ABG pH 7.335 pH Units (7.350-7.450) L 03/03/19 05:25 ABG pCO2 61.3 mm Hg 03/03/19 05:25 POC ABG pO2 64 (80-105) L 03/02/19 04:32 ABG pO2 89.2 mm Hg (80.0-90.0) 03/03/19 05:25 ABG O2 Saturation 97.0 % (95.0-99.0) 03/03/19 05:25 PT/INR, D-dimer PT 14.8 Sec. (12.2-14.9) 02/27/19 12:38 INR 1.17 (0.87-1.13) H 02/27/19 12:38 D-Dimer 5778.32 ng/mlDDU (0-234) H 02/27/19 12:38 Abnormal lab findings: Abnormal Labs 02/27/19 02/27/19 02/27/19 11:33 11:33 11:33 WBC 18.6 H RBC 3.60 L Hgb 8.7 L Hct 28.8 L MCH 24 L MCHC RDW 23.0 H Plt Count 507 H Lymph % (Auto) 12.9 L Stokes # 1.3 H Seg Neutrophils % 79.7 H Seg Neuts % (Manual) Lymphocytes % (Manual) Nucleated RBC % Seg Neutrophils # 14.8 H Seg Neutrophils # Man Lymphocytes # (Manual) INR D-Dimer POC ABG pH ABG pH POC ABG pCO2 POC ABG pO2 ABG pO2 ABG HCO3 ABG O2 Saturation ABG Base Excess ABG Hemoglobin Oxyhemoglobin Sodium Potassium Chloride 96.8 L Carbon Dioxide BUN 28 H Creatinine 0.5 L Glucose 169 H POC Glucose Lactic Acid 3.40 H* Phosphorus Magnesium AST ALT Alkaline Phosphatase Ammonia Total Creatine Kinase 197 H CK-MB (CK-2) 4.1 H NT-Pro-B Natriuret Pep Total Protein Albumin Urine Creatinine Crossmatch 02/27/19 02/27/19 02/27/19 11:33 11:45 11:47 WBC RBC Hgb Hct MCH MCHC RDW Plt Count Lymph % (Auto) Stokes # Seg Neutrophils % Seg Neuts % (Manual) Lymphocytes % (Manual) Nucleated RBC % Seg Neutrophils # Seg Neutrophils # Man Lymphocytes # (Manual) INR D-Dimer POC ABG pH ABG pH POC ABG pCO2 POC ABG pO2 ABG pO2 ABG HCO3 ABG O2 Saturation ABG Base Excess ABG Hemoglobin Oxyhemoglobin Sodium Potassium Chloride Carbon Dioxide BUN Creatinine Glucose POC Glucose 169 H Lactic Acid Phosphorus Magnesium AST 95 H ALT Alkaline Phosphatase 130 H Ammonia Total Creatine Kinase CK-MB (CK-2) NT-Pro-B Natriuret Pep Total Protein Albumin 2.9 L Urine Creatinine Crossmatch See Detail 02/27/19 02/27/19 02/27/19 12:30 12:38 14:08 WBC RBC Hgb Hct MCH MCHC RDW Plt Count Lymph % (Auto) Stokes # Seg Neutrophils % Seg Neuts % (Manual) Lymphocytes % (Manual) Nucleated RBC % Seg Neutrophils # Seg Neutrophils # Man Lymphocytes # (Manual) INR 1.17 H D-Dimer 5778.32 H POC ABG pH 7.326 L ABG pH POC ABG pCO2 POC ABG pO2 129 H ABG pO2 ABG HCO3 ABG O2 Saturation ABG Base Excess ABG Hemoglobin Oxyhemoglobin Sodium Potassium Chloride Carbon Dioxide BUN Creatinine Glucose POC Glucose Lactic Acid 3.00 H* Phosphorus Magnesium AST ALT Alkaline Phosphatase Ammonia Total Creatine Kinase CK-MB (CK-2) NT-Pro-B Natriuret Pep Total Protein Albumin Urine Creatinine Crossmatch 02/27/19 02/27/19 02/27/19 15:03 16:06 18:08 WBC RBC Hgb Hct MCH MCHC RDW Plt Count Lymph % (Auto) Stokes # Seg Neutrophils % Seg Neuts % (Manual) Lymphocytes % (Manual) Nucleated RBC % Seg Neutrophils # Seg Neutrophils # Man Lymphocytes # (Manual) INR D-Dimer POC ABG pH ABG pH POC ABG pCO2 68.8 H POC ABG pO2 225 H ABG pO2 ABG HCO3 ABG O2 Saturation ABG Base Excess ABG Hemoglobin Oxyhemoglobin Sodium Potassium Chloride Carbon Dioxide BUN Creatinine Glucose POC Glucose Lactic Acid 3.20 H* 2.80 H* Phosphorus Magnesium AST ALT Alkaline Phosphatase Ammonia Total Creatine Kinase CK-MB (CK-2) NT-Pro-B Natriuret Pep Total Protein Albumin Urine Creatinine Crossmatch 02/27/19 02/28/19 02/28/19 18:12 10:00 10:00 WBC 13.3 H RBC 3.39 L Hgb 8.1 L Hct 26.7 L MCH 24 L MCHC RDW 22.5 H Plt Count Lymph % (Auto) Stokes # Seg Neutrophils % Seg Neuts % (Manual) Lymphocytes % (Manual) Nucleated RBC % Seg Neutrophils # Seg Neutrophils # Man Lymphocytes # (Manual) INR D-Dimer POC ABG pH ABG pH POC ABG pCO2 POC ABG pO2 ABG pO2 ABG HCO3 ABG O2 Saturation ABG Base Excess ABG Hemoglobin Oxyhemoglobin Sodium 146 H Potassium Chloride Carbon Dioxide 32 H BUN 32 H Creatinine 0.5 L Glucose 111 H POC Glucose Lactic Acid 2.30 H* Phosphorus Magnesium AST 93 H ALT Alkaline Phosphatase Ammonia Total Creatine Kinase CK-MB (CK-2) NT-Pro-B Natriuret Pep Total Protein Albumin 2.6 L Urine Creatinine Crossmatch 02/28/19 03/01/19 03/01/19 10:26 00:05 05:00 WBC 20.2 H RBC Hgb 9.0 L Hct 29.9 L MCH 24 L MCHC RDW 22.8 H Plt Count 498 H Lymph % (Auto) Stokes # Seg Neutrophils % Seg Neuts % (Manual) Lymphocytes % (Manual) Nucleated RBC % Seg Neutrophils # Seg Neutrophils # Man Lymphocytes # (Manual) INR D-Dimer POC ABG pH ABG pH POC ABG pCO2 54.2 H POC ABG pO2 ABG pO2 ABG HCO3 ABG O2 Saturation ABG Base Excess ABG Hemoglobin Oxyhemoglobin Sodium Potassium Chloride Carbon Dioxide BUN Creatinine Glucose POC Glucose 167 H Lactic Acid Phosphorus Magnesium AST ALT Alkaline Phosphatase Ammonia Total Creatine Kinase CK-MB (CK-2) NT-Pro-B Natriuret Pep Total Protein Albumin Urine Creatinine Crossmatch 03/01/19 03/01/19 03/01/19 05:00 12:36 17:31 WBC RBC Hgb Hct MCH MCHC RDW Plt Count Lymph % (Auto) Stokes # Seg Neutrophils % Seg Neuts % (Manual) Lymphocytes % (Manual) Nucleated RBC % Seg Neutrophils # Seg Neutrophils # Man Lymphocytes # (Manual) INR D-Dimer POC ABG pH ABG pH POC ABG pCO2 POC ABG pO2 ABG pO2 ABG HCO3 ABG O2 Saturation ABG Base Excess ABG Hemoglobin Oxyhemoglobin Sodium 148 H Potassium Chloride Carbon Dioxide 37 H BUN 43 H Creatinine 0.6 L Glucose 150 H POC Glucose 140 H 157 H Lactic Acid Phosphorus Magnesium AST ALT Alkaline Phosphatase Ammonia Total Creatine Kinase CK-MB (CK-2) NT-Pro-B Natriuret Pep Total Protein Albumin Urine Creatinine Crossmatch 03/02/19 03/02/19 03/02/19 04:29 04:32 05:27 WBC RBC Hgb Hct MCH MCHC RDW Plt Count Lymph % (Auto) Stokes # Seg Neutrophils % Seg Neuts % (Manual) Lymphocytes % (Manual) Nucleated RBC % Seg Neutrophils # Seg Neutrophils # Man Lymphocytes # (Manual) INR D-Dimer POC ABG pH 7.056 L ABG pH POC ABG pCO2 POC ABG pO2 64 L ABG pO2 ABG HCO3 ABG O2 Saturation ABG Base Excess ABG Hemoglobin Oxyhemoglobin Sodium Potassium Chloride Carbon Dioxide BUN Creatinine Glucose POC Glucose 161 H Lactic Acid Phosphorus Magnesium AST ALT Alkaline Phosphatase Ammonia Total Creatine Kinase CK-MB (CK-2) NT-Pro-B Natriuret Pep 2143 H Total Protein Albumin Urine Creatinine Crossmatch 03/02/19 03/02/19 03/02/19 05:27 05:27 05:27 WBC 17.8 H RBC 3.50 L Hgb 8.5 L Hct 29.5 L MCH 24 L MCHC 29 L RDW 21.9 H Plt Count Lymph % (Auto) Stokes # Seg Neutrophils % Seg Neuts % (Manual) 94.0 H Lymphocytes % (Manual) 2.0 L Nucleated RBC % 1.0 H Seg Neutrophils # Seg Neutrophils # Man 16.7 H Lymphocytes # (Manual) 0.4 L INR D-Dimer POC ABG pH ABG pH POC ABG pCO2 POC ABG pO2 ABG pO2 ABG HCO3 ABG O2 Saturation ABG Base Excess ABG Hemoglobin Oxyhemoglobin Sodium 156 H D Potassium 5.4 H Chloride 108.6 H Carbon Dioxide 39 H BUN 60 H Creatinine Glucose 159 H POC Glucose Lactic Acid Phosphorus Magnesium AST 164 H ALT Alkaline Phosphatase 164 H Ammonia 81.0 H Total Creatine Kinase CK-MB (CK-2) NT-Pro-B Natriuret Pep Total Protein 6.2 L Albumin 2.2 L Urine Creatinine Crossmatch 03/02/19 03/02/19 03/02/19 05:27 06:04 10:56 WBC RBC Hgb Hct MCH MCHC RDW Plt Count Lymph % (Auto) Stokes # Seg Neutrophils % Seg Neuts % (Manual) Lymphocytes % (Manual) Nucleated RBC % Seg Neutrophils # Seg Neutrophils # Man Lymphocytes # (Manual) INR D-Dimer POC ABG pH ABG pH 7.239 L POC ABG pCO2 POC ABG pO2 ABG pO2 60.0 L 103.9 H ABG HCO3 36.6 H 32.9 H ABG O2 Saturation 88.3 L ABG Base Excess 7.3 H 7.7 H ABG Hemoglobin 9.1 L 9.0 L Oxyhemoglobin 86.3 L Sodium Potassium Chloride Carbon Dioxide BUN Creatinine Glucose POC Glucose Lactic Acid Phosphorus 6.90 H Magnesium 2.80 H AST ALT Alkaline Phosphatase Ammonia Total Creatine Kinase CK-MB (CK-2) NT-Pro-B Natriuret Pep Total Protein Albumin Urine Creatinine Crossmatch 03/02/19 03/02/19 03/02/19 13:58 23:40 Unknown WBC RBC Hgb Hct MCH MCHC RDW Plt Count Lymph % (Auto) Stokes # Seg Neutrophils % Seg Neuts % (Manual) Lymphocytes % (Manual) Nucleated RBC % Seg Neutrophils # Seg Neutrophils # Man Lymphocytes # (Manual) INR D-Dimer POC ABG pH ABG pH POC ABG pCO2 POC ABG pO2 ABG pO2 ABG HCO3 ABG O2 Saturation ABG Base Excess ABG Hemoglobin Oxyhemoglobin Sodium Potassium Chloride Carbon Dioxide BUN Creatinine Glucose POC Glucose 127 H 161 H Lactic Acid Phosphorus Magnesium AST ALT Alkaline Phosphatase Ammonia Total Creatine Kinase CK-MB (CK-2) NT-Pro-B Natriuret Pep Total Protein Albumin Urine Creatinine 218.2 H Crossmatch 03/03/19 03/03/19 03/03/19 05:00 05:00 05:25 WBC 17.8 H RBC 3.62 L Hgb 8.8 L Hct 28.9 L MCH 24 L MCHC RDW 22.8 H Plt Count Lymph % (Auto) Stokes # Seg Neutrophils % Seg Neuts % (Manual) 96.0 H Lymphocytes % (Manual) 1.0 L Nucleated RBC % 3.0 H Seg Neutrophils # Seg Neutrophils # Man 17.1 H Lymphocytes # (Manual) 0.2 L INR D-Dimer POC ABG pH ABG pH 7.335 L POC ABG pCO2 POC ABG pO2 ABG pO2 ABG HCO3 32.0 H ABG O2 Saturation ABG Base Excess 5.2 H ABG Hemoglobin 8.2 L Oxyhemoglobin 94.9 L Sodium 160 H Potassium 3.5 L D Chloride 113.7 H Carbon Dioxide BUN 90 H Creatinine 1.7 H D Glucose 149 H POC Glucose Lactic Acid Phosphorus Magnesium 2.90 H AST 624 H ALT 211 H Alkaline Phosphatase 416 H Ammonia Total Creatine Kinase CK-MB (CK-2) NT-Pro-B Natriuret Pep Total Protein 6.2 L Albumin 2.2 L Urine Creatinine Crossmatch 03/03/19 05:41 WBC RBC Hgb Hct MCH MCHC RDW Plt Count Lymph % (Auto) Stokes # Seg Neutrophils % Seg Neuts % (Manual) Lymphocytes % (Manual) Nucleated RBC % Seg Neutrophils # Seg Neutrophils # Man Lymphocytes # (Manual) INR D-Dimer POC ABG pH ABG pH POC ABG pCO2 POC ABG pO2 ABG pO2 ABG HCO3 ABG O2 Saturation ABG Base Excess ABG Hemoglobin Oxyhemoglobin Sodium Potassium Chloride Carbon Dioxide BUN Creatinine Glucose POC Glucose 150 H Lactic Acid Phosphorus Magnesium AST ALT Alkaline Phosphatase Ammonia Total Creatine Kinase CK-MB (CK-2) NT-Pro-B Natriuret Pep Total Protein Albumin Urine Creatinine Crossmatch Chest x-ray: image reviewed (ETT, LIJ CVC in place. Bilateral alveolar infiltrates) Allied health notes reviewed: RT
[2019-03-03] MEDS: NORepinephrine/NS 4 MG-250 ML 4 MG/250 ML BAG IV SCH ×2 (08:28→23:26)
[2019-03-03] MEDS ORDERED: LIPASE 10,500/PROTEASE 25,000/AMYLASE 43,750 (UNITS) DR CAP FEEDTUBE PRN (08:54)
[2019-03-03] MEDS ORDERED: SIMPLE SYRUP 15 ML FEEDTUBE PRN ×2 (08:54)
[2019-03-03] MEDS ORDERED: SODIUM BICARBONATE 325 MG TAB FEEDTUBE PRN (08:54)
[2019-03-03] MEDS ORDERED: POTASSIUM CHLORIDE 20 MEQ PACKET FEEDTUBE ONE (09:00)
[2019-03-03] MEDS ORDERED: D5W/0.45% NACL 1,000 ML IV SCH (09:00)
[2019-03-03] MEDS: GLYCOPYRROLATE 1 MG TAB PO SCH ×3 (09:00→19:58)
[2019-03-03] MEDS: LACTULOSE 20 GM/30 ML ORAL LIQD PO SCH ×2 (09:08→21:00)
[2019-03-03] MEDS: ENOXAPARIN 40 MG/0.4 ML INJ SUB-Q SCH (09:08)
[2019-03-03] MEDS: FAMOTIDINE 20 MG/2 ML INJ IV SCH ×2 (09:09→21:00)
--- NOTE | 2019-03-03 09:58 | Progress Note ---
Assessment and Plan This is a 49 year old lady with unfortunate advanced Stage IV left breast cancer with metastasis to the lungs. She's status post most recent surgery on 01/29/2019 left chest wall cancer ulcerative necrotic mass of 30 cm with 30x16 cm chest wall defect and wound vac placed. Patient with most recent admission to the ICU on , 02/27/2019, patient with sepsis and pneumonia and on 2 pressers- being weaned and currently intubated. This morning patient opened eyes to command and blinked eyes twice as directed by myself. Patient in critical condition with pulmonary and liver metastasis. Patient full code and family wants everything done. Wound care will change dressing of left chest today. Please call me with any questions [phone]. - Patient Problems (1) Anasarca Current Visit: Yes Status: Acute (2) Anemia Current Visit: Yes Status: Acute Qualifiers: Anemia type: unspecified type Qualified Code(s): D64.9 - Anemia, un specified (3) Metastatic breast cancer Current Visit: Yes Status: Acute (4) Open breast wound Current Visit: Yes Status: Acute Qualifiers: Encounter type: initial encounter Laterality: unspecified laterality Qualified Code(s): S21.009A - Unspecified open wound of unspecified breast, initial encounter (5) Pleural effusion Current Visit: Yes Status: Acute (6) Pneumonia Current Visit: Yes Status: Acute Qualifiers: Pneumonia type: due to unspecified organism Laterality: bilateral Lung location: unspecified part of lung Qualified Code(s): J18.9 - Pneumonia, unspecified organism (7) Respiratory failure Current Visit: Yes Status: Acute Qualifiers: Chronicity: acute Respiratory failure complication: hypoxia Qualified Code(s): J96.01 - Acute respiratory failure with hypoxia (8) SIRS (systemic inflammatory response syndrome) Current Visit: Yes Status: Acute (9) Sepsis Current Visit: Yes Status: Acute Qualifiers: Sepsis type: sepsis due to unspecified organism Sepsis acute organ dy sfunction status: unspecified Qualified Code(s): A41.9 - Sepsis, unspecified organism (10) Encounter for management of wound VAC Current Visit: No Status: Acute (11) Leukocytosis Current Visit: No Status: Acute Qualifiers: Leukocytosis type: unspecified Qualified Code(s): D72.829 - Elevated white blood cell count, unspecified (12) SOB (shortness of breath) Current Visit: No Status: Acute (13) Tachycardia Current Visit: No Status: Acute Subjective Date of service: 03/03/19 Principal diagnosis: Ac. hypoxemic resp failure; Sev Sepsis; R. pleural effusion; Met. breast CA Interval history: This is a 49 year old lady with unfortunate advanced Stage IV left breast cancer with metastasis to the lungs. She's status post most recent surgery on 01/29/2019 left chest wall cancer ulcerative necrotic mass of 30 cm with 30x16 cm chest wall defect and wound vac placed. Patient now admitted with sepsis and pneumonia. Patient currently intubated and on epi and vasopressin. Objective - Constitutional Vitals: Vital Signs - 12hr 03/02/19 03/02/19 03/02/19 22:00 22:10 22:20 Temperature Pulse Rate 100 H 115 H 121 H Pulse Rate [ Anterior Throughout] Pulse Rate [ Apical] Pulse Rate [ Posterior Bilateral Throughout] Respiratory 26 H 25 H 28 H Rate Respiratory Rate [Anterior Throughout] Respiratory Rate [Posterior Bilateral Throughout] Blood Pressure 118/72 118/72 129/66 O2 Sat by Pulse 93 93 93 Oximetry 03/02/19 03/02/19 03/02/19 22:30 22:40 22:50 Temperature Pulse Rate 116 H 124 H 108 H Pulse Rate [ Anterior Throughout] Pulse Rate [ Apical] Pulse Rate [ Posterior Bilateral Throughout] Respiratory 29 H 28 H 29 H Rate Respiratory Rate [Anterior Throughout] Respiratory Rate [Posterior Bilateral Throughout] Blood Pressure 113/70 113/70 128/67 O2 Sat by Pulse 93 93 95 Oximetry 03/02/19 03/02/19 03/02/19 23:00 23:04 23:10 Temperature Pulse Rate 106 H 125 H 104 H Pulse Rate [ Anterior Throughout] Pulse Rate [ Apical] Pulse Rate [ Posterior Bilateral Throughout] Respiratory 26 H 28 H 27 H Rate Respiratory Rate [Anterior Throughout] Respiratory Rate [Posterior Bilateral Throughout] Blood Pressure 110/66 110/66 110/66 O2 Sat by Pulse 95 94 94 Oximetry 03/02/19 03/02/19 03/02/19 23:20 23:30 23:40 Temperature Pulse Rate 109 H 110 H 111 H Pulse Rate [ Anterior Throughout] Pulse Rate [ Apical] Pulse Rate [ Posterior Bilateral Throughout] Respiratory 27 H 16 29 H Rate Respiratory Rate [Anterior Throughout] Respiratory Rate [Posterior Bilateral Throughout] Blood Pressure 128/63 137/83 128/63 O2 Sat by Pulse 96 94 94 Oximetry 03/02/19 03/03/19 03/03/19 23:50 00:00 00:10 Temperature 99.7 F H Pulse Rate 96 H 126 H 117 H Pulse Rate [ Anterior Throughout] Pulse Rate [ 91 H Apical] Pulse Rate [ Posterior Bilateral Throughout] Respiratory 28 H 28 H 28 H Rate Respiratory Rate [Anterior Throughout] Respiratory Rate [Posterior Bilateral Throughout] Blood Pressure 118/67 119/65 119/65 O2 Sat by Pulse 94 94 93 Oximetry 03/03/19 03/03/19 03/03/19 00:20 00:30 00:40 Temperature Pulse Rate 126 H 117 H 122 H Pulse Rate [ Anterior Throughout] Pulse Rate [ Apical] Pulse Rate [ Posterior Bilateral Throughout] Respiratory 29 H 26 H 26 H Rate Respiratory Rate [Anterior Throughout] Respiratory Rate [Posterior Bilateral Throughout] Blood Pressure 119/63 112/59 112/59 O2 Sat by Pulse 93 94 94 Oximetry 03/03/19 03/03/19 03/03/19 00:44 00:50 01:00 Temperature Pulse Rate 127 H 106 H 107 H Pulse Rate [ Anterior Throughout] Pulse Rate [ Apical] Pulse Rate [ Posterior Bilateral Throughout] Respiratory 26 H 12 Rate Respiratory Rate [Anterior Throughout] Respiratory Rate [Posterior Bilateral Throughout] Blood Pressure 112/59 112/61 137/73 O2 Sat by Pulse 94 91 93 Oximetry 03/03/19 03/03/19 03/03/19 01:10 01:20 01:30 Temperature Pulse Rate 114 H 122 H 128 H Pulse Rate [ Anterior Throughout] Pulse Rate [ Apical] Pulse Rate [ Posterior Bilateral Throughout] Respiratory 30 H 22 28 H Rate Respiratory Rate [Anterior Throughout] Respiratory Rate [Posterior Bilateral Throughout] Blood Pressure 137/73 131/75 103/59 O2 Sat by Pulse 90 91 77 L Oximetry 03/03/19 03/03/19 03/03/19 01:40 01:50 02:00 Temperature Pulse Rate 129 H 122 H 135 H Pulse Rate [ Anterior Throughout] Pulse Rate [ Apical] Pulse Rate [ Posterior Bilateral Throughout] Respiratory 30 H 14 25 H Rate Respiratory Rate [Anterior Throughout] Respiratory Rate [Posterior Bilateral Throughout] Blood Pressure 103/59 105/53 102/59 O2 Sat by Pulse 90 84 91 Oximetry 03/03/19 03/03/19 03/03/19 02:10 02:20 02:30 Temperature Pulse Rate 133 H 135 H 135 H Pulse Rate [ Anterior Throughout] Pulse Rate [ Apical] Pulse Rate [ Posterior Bilateral Throughout] Respiratory 24 25 H 25 H Rate Respiratory Rate [Anterior Throughout] Respiratory Rate [Posterior Bilateral Throughout] Blood Pressure 102/59 106/58 91/54 O2 Sat by Pulse 95 Oximetry 03/03/19 03/03/19 03/03/19 02:40 02:50 03:00 Temperature Pulse Rate 132 H 132 H 130 H Pulse Rate [ Anterior Throughout] Pulse Rate [ Apical] Pulse Rate [ Posterior Bilateral Throughout] Respiratory 25 H 25 H 25 H Rate Respiratory Rate [Anterior Throughout] Respiratory Rate [Posterior Bilateral Throughout] Blood Pressure 95/51 103/58 112/58 O2 Sat by Pulse 96 95 96 Oximetry 03/03/19 03/03/19 03/03/19 03:10 03:20 03:30 Temperature Pulse Rate 130 H 130 H 127 H Pulse Rate [ Anterior Throughout] Pulse Rate [ Apical] Pulse Rate [ Posterior Bilateral Throughout] Respiratory 25 H 25 H 17 Rate Respiratory Rate [Anterior Throughout] Respiratory Rate [Posterior Bilateral Throughout] Blood Pressure 112/58 104/61 93/54 O2 Sat by Pulse 96 96 95 Oximetry 03/03/19 03/03/19 03/03/19 03:40 03:50 04:00 Temperature 98.8 F Pulse Rate 127 H 130 H 128 H Pulse Rate [ Anterior Throughout] Pulse Rate [ 130 H Apical] Pulse Rate [ Posterior Bilateral Throughout] Respiratory 25 H 22 25 H Rate Respiratory Rate [Anterior Throughout] Respiratory Rate [Posterior Bilateral Throughout] Blood Pressure 93/54 114/66 107/62 O2 Sat by Pulse 96 96 97 Oximetry 03/03/19 03/03/19 03/03/19 04:10 04:20 04:30 Temperature Pulse Rate 129 H 129 H 127 H Pulse Rate [ Anterior Throughout] Pulse Rate [ Apical] Pulse Rate [ Posterior Bilateral Throughout] Respiratory 25 H 25 H 25 H Rate Respiratory Rate [Anterior Throughout] Respiratory Rate [Posterior Bilateral Throughout] Blood Pressure 107/62 107/64 110/64 O2 Sat by Pulse 96 96 96 Oximetry 03/03/19 03/03/19 03/03/19 04:40 04:50 05:00 Temperature Pulse Rate 128 H 130 H 130 H Pulse Rate [ Anterior Throughout] Pulse Rate [ Apical] Pulse Rate [ Posterior Bilateral Throughout] Respiratory 25 H 25 H 25 H Rate Respiratory Rate [Anterior Throughout] Respiratory Rate [Posterior Bilateral Throughout] Blood Pressure 110/64 107/64 115/64 O2 Sat by Pulse 96 96 96 Oximetry 03/03/19 03/03/19 03/03/19 05:10 05:16 05:20 Temperature Pulse Rate 125 H 128 H Pulse Rate [ Anterior Throughout] Pulse Rate [ Apical] Pulse Rate [ Posterior Bilateral Throughout] Respiratory 17 11 L Rate Respiratory Rate [Anterior Throughout] Respiratory Rate [Posterior Bilateral Throughout] Blood Pressure 115/64 97/57 107/60 O2 Sat by Pulse 95 97 97 Oximetry 03/03/19 03/03/19 03/03/19 05:22 05:30 05:40 Temperature Pulse Rate 128 H 104 H 110 H Pulse Rate [ Anterior Throughout] Pulse Rate [ Apical] Pulse Rate [ Posterior Bilateral Throughout] Respiratory 15 19 Rate Respiratory Rate [Anterior Throughout] Respiratory Rate [Posterior Bilateral Throughout] Blood Pressure 107/60 96/60 96/60 O2 Sat by Pulse 97 97 Oximetry 03/03/19 03/03/19 03/03/19 05:50 06:00 06:10 Temperature Pulse Rate 115 H 116 H 118 H Pulse Rate [ Anterior Throughout] Pulse Rate [ Apical] Pulse Rate [ Posterior Bilateral Throughout] Respiratory 21 9 L 13 Rate Respiratory Rate [Anterior Throughout] Respiratory Rate [Posterior Bilateral Throughout] Blood Pressure 107/65 106/67 106/67 O2 Sat by Pulse 97 97 97 Oximetry 03/03/19 03/03/19 03/03/19 06:20 06:30 06:40 Temperature Pulse Rate 121 H 116 H 118 H Pulse Rate [ Anterior Throughout] Pulse Rate [ Apical] Pulse Rate [ Posterior Bilateral Throughout] Respiratory 18 25 H 22 Rate Respiratory Rate [Anterior Throughout] Respiratory Rate [Posterior Bilateral Throughout] Blood Pressure 118/65 111/62 111/62 O2 Sat by Pulse 94 96 97 Oximetry 03/03/19 03/03/19 03/03/19 06:50 07:00 07:04 Temperature Pulse Rate 118 H 116 H Pulse Rate [ Anterior Throughout] Pulse Rate [ 118 H Apical] Pulse Rate [ Posterior Bilateral Throughout] Respiratory 25 H 25 H 25 H Rate Respiratory Rate [Anterior Throughout] Respiratory Rate [Posterior Bilateral Throughout] Blood Pressure 105/61 109/62 O2 Sat by Pulse 97 97 97 Oximetry 03/03/19 03/03/19 03/03/19 07:10 07:20 07:30 Temperature Pulse Rate 118 H 119 H 114 H Pulse Rate [ Anterior Throughout] Pulse Rate [ Apical] Pulse Rate [ Posterior Bilateral Throughout] Respiratory 25 H 25 H 22 Rate Respiratory Rate [Anterior Throughout] Respiratory Rate [Posterior Bilateral Throughout] Blood Pressure 109/62 110/59 114/63 O2 Sat by Pulse 97 97 Oximetry 03/03/19 03/03/19 03/03/19 07:40 07:50 08:00 Temperature Pulse Rate 125 H 115 H 121 H Pulse Rate [ 102 H Anterior Throughout] Pulse Rate [ Apical] Pulse Rate [ 116 H Posterior Bilateral Throughout] Respiratory 25 H 25 H 26 H Rate Respiratory 26 H Rate [Anterior Throughout] Respiratory 28 H Rate [Posterior Bilateral Throughout] Blood Pressure 114/63 114/62 108/60 O2 Sat by Pulse 93 94 94 Oximetry 03/03/19 08:18 Temperature Pulse Rate 121 H Pulse Rate [ Anterior Throughout] Pulse Rate [ Apical] Pulse Rate [ Posterior Bilateral Throughout] Respiratory Rate Respiratory Rate [Anterior Throughout] Respiratory Rate [Posterior Bilateral Throughout] Blood Pressure 108/60 O2 Sat by Pulse 94 Oximetry General appearance: Present: other (intubated) - EENT Ears: bilateral: normal - Neck Neck: other (patient intubated) - Respiratory Respiratory effort: other (on ventilator) - Breasts Breasts: other (left chest wall dressing intact and will be changed today; patient with known 30x16 cm chest wall defect) Extremity abnormal: edema - Gastrointestinal General gastrointestinal: Present: soft, non-distended Rectal Exam: deferred - Genitourinary Female genitourinary: deferred - Integumentary Integumentary: clear, warm, dry - Psychiatric Psychiatric: other (patient intubated) - Labs CBC & Chem 7: 03/03/19 05:00 03/03/19 05:00 Labs: Abnormal lab results 02/27/19 03/02/19 03/02/19 Range/Units 11:45 10:56 13:58 WBC (4.5-11.0) K/mm3 RBC (3.65-5.03) M/mm3 Hgb (10.1-14.3) gm/dl Hct (30.3-42.9) % MCH (28-32) pg RDW (13.2-15.2) % Seg Neuts % (Manual) (40.0-70.0) % Lymphocytes % (Manual) (13.4-35.0) % Nucleated RBC % (0.0-0.9) % Seg Neutrophils # Man (1.8-7.7) K/mm3 Lymphocytes # (Manual) (1.2-5.4) K/mm3 ABG pH (7.350-7.450) pH Units ABG pO2 103.9 H (80.0-90.0) mm Hg ABG HCO3 32.9 H (20.0-26.0) mmol/L ABG Base Excess 7.7 H (-2.0-3.0) mmol/L ABG Hemoglobin 9.0 L (12.0-16.0) gm/dl Oxyhemoglobin (95.0-99.0) % Sodium (137-145) mmol/L Potassium (3.6-5.0) mmol/L Chloride (98-107) mmol/L BUN (7-17) mg/dL Creatinine (0.7-1.2) mg/dL Glucose (65-100) mg/dL POC Glucose 127 H (70-105) Magnesium (1.7-2.3) mg/dL AST (5-40) units/L ALT (7-56) units/L Alkaline Phosphatase (35-129) units/L Total Protein (6.3-8.2) g/dL Albumin (3.9-5) g/dL Urine Creatinine (0.1-20.0) mg/dL Crossmatch See Detail 03/02/19 03/02/19 03/03/19 Range/Units 23:40 Unknown 05:00 WBC 17.8 H (4.5-11.0) K/mm3 RBC 3.62 L (3.65-5.03) M/mm3 Hgb 8.8 L (10.1-14.3) gm/dl Hct 28.9 L (30.3-42.9) % MCH 24 L (28-32) pg RDW 22.8 H (13.2-15.2) % Seg Neuts % (Manual) 96.0 H (40.0-70.0) % Lymphocytes % (Manual) 1.0 L (13.4-35.0) % Nucleated RBC % 3.0 H (0.0-0.9) % Seg Neutrophils # Man 17.1 H (1.8-7.7) K/mm3 Lymphocytes # (Manual) 0.2 L (1.2-5.4) K/mm3 ABG pH (7.350-7.450) pH Units ABG pO2 (80.0-90.0) mm Hg ABG HCO3 (20.0-26.0) mmol/L ABG Base Excess (-2.0-3.0) mmol/L ABG Hemoglobin (12.0-16.0) gm/dl Oxyhemoglobin (95.0-99.0) % Sodium (137-145) mmol/L Potassium (3.6-5.0) mmol/L Chloride (98-107) mmol/L BUN (7-17) mg/dL Creatinine (0.7-1.2) mg/dL Glucose (65-100) mg/dL POC Glucose 161 H (70-105) Magnesium (1.7-2.3) mg/dL AST (5-40) units/L ALT (7-56) units/L Alkaline Phosphatase (35-129) units/L Total Protein (6.3-8.2) g/dL Albumin (3.9-5) g/dL Urine Creatinine 218.2 H (0.1-20.0) mg/dL Crossmatch 03/03/19 03/03/19 03/03/19 Range/Units 05:00 05:25 05:41 WBC (4.5-11.0) K/mm3 RBC (3.65-5.03) M/mm3 Hgb (10.1-14.3) gm/dl Hct (30.3-42.9) % MCH (28-32) pg RDW (13.2-15.2) % Seg Neuts % (Manual) (40.0-70.0) % Lymphocytes % (Manual) (13.4-35.0) % Nucleated RBC % (0.0-0.9) % Seg Neutrophils # Man (1.8-7.7) K/mm3 Lymphocytes # (Manual) (1.2-5.4) K/mm3 ABG pH 7.335 L (7.350-7.450) pH Units ABG pO2 (80.0-90.0) mm Hg ABG HCO3 32.0 H (20.0-26.0) mmol/L ABG Base Excess 5.2 H (-2.0-3.0) mmol/L ABG Hemoglobin 8.2 L (12.0-16.0) gm/dl Oxyhemoglobin 94.9 L (95.0-99.0) % Sodium 160 H (137-145) mmol/L Potassium 3.5 L D (3.6-5.0) mmol/L Chloride 113.7 H (98-107) mmol/L BUN 90 H (7-17) mg/dL Creatinine 1.7 H D (0.7-1.2) mg/dL Glucose 149 H (65-100) mg/dL POC Glucose 150 H (70-105) Magnesium 2.90 H (1.7-2.3) mg/dL AST 624 H (5-40) units/L ALT 211 H (7-56) units/L Alkaline Phosphatase 416 H (35-129) units/L Total Protein 6.2 L (6.3-8.2) g/dL Albumin 2.2 L (3.9-5) g/dL Urine Creatinine (0.1-20.0) mg/dL Crossmatch Medications & Allergies - Medications Allergies/Adverse Reactions: Allergies aspirin Adverse Reaction (Verified 01/28/19 12:25) GI Upset Home Medications: Home Medications Medication Instructions Recorded Confirmed Last Taken Type amLODIPine 5 mg PO DAILY 01/27/19 02/27/19 02/15/19 10:00 History Albuterol Sulfate [Proventil Hfa] 6.7 gm IH Q6H PRN #1 can 02/11/19 02/27/19 02/15/19 15:00 Rx Clindamycin [Clindamycin CAP] 300 mg PO Q8H #21 cap 02/11/19 02/27/19 02/15/19 10:00 Rx oxyCODONE [roxiCODONE] 10 mg PO Q6HR PRN 02/15/19 02/27/19 Unknown History Budesonide/Formoterol Fumarate 2 puff IH BID #1 hfa.aer.ad 02/19/19 02/27/19 Unknown Rx [Symbicort 160-4.5 Mcg Inhaler] HYDROcodone/APAP 10-325 [[place] 1 each PO Q6HR PRN #30 tablet 02/19/19 02/27/19 Unknown Rx 10/325] cephALEXin [Keflex] 500 mg PO Q6HR #40 capsule 02/19/19 02/27/19 Unknown Rx Active Medications: Generic Name Dose Route Start Last Admin Trade Name Freq PRN Reason Stop Dose Admin Acetaminophen 650 mg 03/02/19 13:46 03/02/19 15:38 Tylenol PO 650 mg Q6H PRN Administration Fever >101 Albuterol 2.5 mg 02/27/19 21:08 02/28/19 12:35 Proventil IH 2.5 mg Q4HRT PRN Administration Shortness Of Breath Albuterol/Ipratropium 1 ampul 02/28/19 08:00 03/03/19 08:01 Duoneb *Not For Prn Use* IH 1 ampul TIDRT MANISH Administration Lipase/Protease/Amylase 1 each 03/03/19 08:54 Pancreanna Zamora 10,500 Unit FEEDTUBE PRN PRN For Clogged Feeding Tube Enoxaparin Sodium 40 mg 03/01/19 10:00 03/03/19 09:08 Enoxaparin SUB-Q 40 mg QDAY@1000 MANISH Administration Famotidine 20 mg 03/03/19 10:00 03/03/19 09:09 Pepcid IV 20 mg BID MANISH Administration Glycopyrrolate 2 mg 03/02/19 20:00 03/03/19 09:00 Robinul PO 2 mg TID MANISH Administration Hydrophilic Ointment 1 applic 03/02/19 04:40 Vaseline Lip Therapy TP Q2HR PRN Dry Lips Cefepime HCl 2 gm in 100 mls @ 200 mls/hr 02/27/19 20:00 03/03/19 04:00 Cefepime/Ns 2 Gm/100 Ml IV 200 mls/hr Q8H MANISH Administration Protocol Norepinephrine 4 mg in 250 mls @ 7.5 mls/hr 03/02/19 05:00 03/03/19 09:39 Levophed Drip 4 Mg/Ns 250 Ml IV 2 mcg/min TITR MANISH 7.5 mls/hr Titration Protocol 2 MCG/MIN Vasopressin 20 unit/ Sodium 101 mls @ 9.09 mls/hr 03/02/19 05:00 03/03/19 07:45 Chloride IV 0.03 units/min TITR MANISH 9.09 mls/hr Administration Protocol 0.03 UNITS/MIN Fentanyl Citrate 2,000 mcg in 100 mls @ 4.64 mls/hr 03/02/19 17:00 03/03/19 08:25 Fentanyl Drip Premix IV 1 mcg/kg/hr TITR MANISH 4.64 mls/hr Titration Protocol 1 MCG/KG/HR Vancomycin HCl 1,250 mg/ 275 mls @ 166.667 mls/hr 03/03/19 10:00 Sodium Chloride IV 03/03/19 11:38 ONCE ONE Dextrose/Sodium Chloride 1,000 mls @ 75 mls/hr 03/03/19 09:00 03/03/19 09:39 D5/0.45ns IV 03/03/19 22:19 75 mls/hr DIRECT MANISH Administration Lactulose 20 gm 03/02/19 10:00 03/03/19 09:08 Cephulac PO 20 gm Q12HR MANISH Administration Methylprednisolone Sodium Succinate 40 mg 02/28/19 14:00 03/03/19 05:04 Solu-Medrol IV 40 mg Q8HR MANISH Administration Multi-Ingred Cream/Lotion/Oil/Oint 1 applic 03/02/19 16:43 Artificial Tears Ophth Oint OU Q4HR PRN Dry Eye(s) Scopolamine 1 each 03/02/19 19:00 03/02/19 18:33 Transderm-Scop TD 1 each Q3D MANISH Administration Simple Syrup 15 ml 03/03/19 08:54 Simple Syrup FEEDTUBE PRN PRN Hypoglycemia Simple Syrup 30 ml 03/03/19 08:54 Simple Syrup FEEDTUBE PRN PRN Hypoglycemia Sodium Bicarbonate 325 mg 03/03/19 08:54 Sodium Bicarbonate FEEDTUBE PRN PRN For Clogged Feeding Tube
[2019-03-03] MEDS ORDERED: VANCOMYCIN 1,250 MG in SODIUM CHLORIDE 0.9% 250ML 250 ML IV ONE (10:00)
--- NOTE | 2019-03-03 11:33 | Progress Note ---
Assessment and Plan Cultures: Blood culture 02/27/19 no growth to date Urine culture 02/27/19 no growth to date Throacentesis culture 02/28/19 - no growth, no orgs on gram stain. Assessment: 49 yo F PMHx metastatic breast cancer admitted with worsening shortness of breath. 1. Acute sepsis with shock - with tachycardia and leukocytosis. Likely secondary to pneumonia. Breast wound looks clean. 2. B/L Pneumonia - difficult to tell with imaging. S/P thoracentesis, no growth on culture. 3. Large breast wound - no obvious purulence and family denies any issues with the wound at this time. Obvious risk for infection, but at present appears stable. 4. Metastatic breast cancer 5. SELAM: Creatinine worsening. Renally adjust abx. 6. Worsening LFTs and alkaline phosphatase, bilirubin normal. Recs: Overall poor prognosis. Continue IV Cefepime for now, plan to d/c at 7 days. Dos e adjusted due to creatinine rise. Sebastien Perkins MD, FACP [facility] ([facility]) M: [phone] O: [phone] F: [phone] Subjective Date of service: 03/03/19 Principal diagnosis: Ac. hypoxemic resp failure; Sev Sepsis; R. pleural e ffusion; Met. breast CA Interval history: Low grade fever. Remains intubated, on pressors: levophed and vasopressin. Objective - Exam Narrative Exam: Physical Exam: Constitutional: sedated, intubated Head, Ears, Nose: Normocephalic, atraumatic. External ears, nose normal Eyes: Conjunctivae/corneas clear. No icterus. No ptosis. Neck: intubated Oral: intubated Cardiovascular: S1, S2 normal. Respiratory: Good air entry, clear to auscultation bilaterally GI: Soft, non-tender; bowel sounds normal. No peritoneal signs Musculoskeletal: No pedal edema, no cyanosis. Skin: large left breast wound + Hem/Lymphatic: No palpable cervical or supraclavicular nodes. No lymphangitis Psych: no agitation Neurological: sedated, intubated, on vent - Constitutional Vitals: Vital Signs Temp Pulse Resp BP Pulse Ox 100.6 F H 117 H 28 H 96/55 97 03/03/19 08:00 03/03/19 11:00 03/03/19 11:00 03/03/19 11:00 03/03/19 11:00 Temperature -Last 24 Hours Temperature 100.6 F Temperature 98.8 F Temperature 99.7 F Temperature 99.8 F Temperature 101.3 F Temperature 100.9 F - Labs CBC & Chem 7: 03/03/19 05:00 03/03/19 05:00 Labs: Abnormal lab results 02/27/19 03/02/19 03/02/19 Range/Units 11:45 10:56 13:58 WBC (4.5-11.0) K/mm3 RBC (3.65-5.03) M/mm3 Hgb (10.1-14.3) gm/dl Hct (30.3-42.9) % MCH (28-32) pg RDW (13.2-15.2) % Seg Neuts % (Manual) (40.0-70.0) % Lymphocytes % (Manual) (13.4-35.0) % Nucleated RBC % (0.0-0.9) % Seg Neutrophils # Man (1.8-7.7) K/mm3 Lymphocytes # (Manual) (1.2-5.4) K/mm3 ABG pH (7.350-7.450) pH Units ABG pO2 103.9 H (80.0-90.0) mm Hg ABG HCO3 32.9 H (20.0-26.0) mmol/L ABG Base Excess 7.7 H (-2.0-3.0) mmol/L ABG Hemoglobin 9.0 L (12.0-16.0) gm/dl Oxyhemoglobin (95.0-99.0) % Sodium (137-145) mmol/L Potassium (3.6-5.0) mmol/L Chloride (98-107) mmol/L BUN (7-17) mg/dL Creatinine (0.7-1.2) mg/dL Glucose (65-100) mg/dL POC Glucose 127 H (70-105) Magnesium (1.7-2.3) mg/dL AST (5-40) units/L ALT (7-56) units/L Alkaline Phosphatase (35-129) units/L Total Protein (6.3-8.2) g/dL Albumin (3.9-5) g/dL Urine Creatinine (0.1-20.0) mg/dL Crossmatch See Detail 03/02/19 03/02/19 03/03/19 Range/Units 23:40 Unknown 05:00 WBC 17.8 H (4.5-11.0) K/mm3 RBC 3.62 L (3.65-5.03) M/mm3 Hgb 8.8 L (10.1-14.3) gm/dl Hct 28.9 L (30.3-42.9) % MCH 24 L (28-32) pg RDW 22.8 H (13.2-15.2) % Seg Neuts % (Manual) 96.0 H (40.0-70.0) % Lymphocytes % (Manual) 1.0 L (13.4-35.0) % Nucleated RBC % 3.0 H (0.0-0.9) % Seg Neutrophils # Man 17.1 H (1.8-7.7) K/mm3 Lymphocytes # (Manual) 0.2 L (1.2-5.4) K/mm3 ABG pH (7.350-7.450) pH Units ABG pO2 (80.0-90.0) mm Hg ABG HCO3 (20.0-26.0) mmol/L ABG Base Excess (-2.0-3.0) mmol/L ABG Hemoglobin (12.0-16.0) gm/dl Oxyhemoglobin (95.0-99.0) % Sodium (137-145) mmol/L Potassium (3.6-5.0) mmol/L Chloride (98-107) mmol/L BUN (7-17) mg/dL Creatinine (0.7-1.2) mg/dL Glucose (65-100) mg/dL POC Glucose 161 H (70-105) Magnesium (1.7-2.3) mg/dL AST (5-40) units/L ALT (7-56) units/L Alkaline Phosphatase (35-129) units/L Total Protein (6.3-8.2) g/dL Albumin (3.9-5) g/dL Urine Creatinine 218.2 H (0.1-20.0) mg/dL Crossmatch 03/03/19 03/03/19 03/03/19 Range/Units 05:00 05:25 05:41 WBC (4.5-11.0) K/mm3 RBC (3.65-5.03) M/mm3 Hgb (10.1-14.3) gm/dl Hct (30.3-42.9) % MCH (28-32) pg RDW (13.2-15.2) % Seg Neuts % (Manual) (40.0-70.0) % Lymphocytes % (Manual) (13.4-35.0) % Nucleated RBC % (0.0-0.9) % Seg Neutrophils # Man (1.8-7.7) K/mm3 Lymphocytes # (Manual) (1.2-5.4) K/mm3 ABG pH 7.335 L (7.350-7.450) pH Units ABG pO2 (80.0-90.0) mm Hg ABG HCO3 32.0 H (20.0-26.0) mmol/L ABG Base Excess 5.2 H (-2.0-3.0) mmol/L ABG Hemoglobin 8.2 L (12.0-16.0) gm/dl Oxyhemoglobin 94.9 L (95.0-99.0) % Sodium 160 H (137-145) mmol/L Potassium 3.5 L D (3.6-5.0) mmol/L Chloride 113.7 H (98-107) mmol/L BUN 90 H (7-17) mg/dL Creatinine 1.7 H D (0.7-1.2) mg/dL Glucose 149 H (65-100) mg/dL POC Glucose 150 H (70-105) Magnesium 2.90 H (1.7-2.3) mg/dL AST 624 H (5-40) units/L ALT 211 H (7-56) units/L Alkaline Phosphatase 416 H (35-129) units/L Total Protein 6.2 L (6.3-8.2) g/dL Albumin 2.2 L (3.9-5) g/dL Urine Creatinine (0.1-20.0) mg/dL Crossmatch - Imaging and cardiology Chest x-ray: report reviewed, image reviewed (stable bilateral diffuse infiltrates, ET tube +)
--- NOTE | 2019-03-03 13:24 | Cat Scan Report ---
CT HEAD WITHOUT CONTRAST INDICATION / CLINICAL INFORMATION: change in mentation, unresponsive,. TECHNIQUE: Axial imaging performed from the skull apex through the skull base without the use of cont rast. Sagittal and coronal reformatted images. All CT scans at this location are performed using CT dose reduction for ALARA by means of automated exposure control. COMPARISON: None available. FINDINGS: CEREBRAL PARENCHYMA: No significant abnormality. No acute territorial infarct. HEMORRHAGE: None. EXTRA-AXIAL SPACES: Normal in size and morphology for the patient's age. VENTRICULAR SYSTEM: Normal in size and morphology for the patient's age. MIDLINE SHIFT OR HERNIATION: None. CEREBELLUM / BRAINSTEM: No significant abnormality. CALVARIUM: No significant abnormality. ORBITS: Normal as visualized. PARANASAL SINUSES / MASTOID AIR CELLS: There is moderate to large fluid in the sphenoid sinuses bilat erally. The remaining sinuses and mastoid air cells are clear. SOFT TISSUES of HEAD: No significant abnormality. ADDITIONAL FINDINGS: None. IMPRESSION: Cranial CT scan within normal limits. Fluid in the sphenoid sinuses. Signer Name: Kerwin Awad Jr, MD Signed: 03/03/2019 1:19 PM Workstation Name: [id number]
--- NOTE | 2019-03-03 13:38 | Consultation ---
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 She presented on 02/27/2019 from her chest surgeon's office (Dr. Self) for evaluation of respiratory distress and has subsequently been intubated. HPI is obtained per the chart. Since admission, she has been diagnosed with sepsis, suspected PNA, large breast wound. She remains intubated and is requiring vasopressors on evaluation. Cardiology has been consulted for tachycardia. Review of telemetry shows sinus tachycardia, HR 115 - 120s, no arrhythmias noted. Past History Past Medical History: cancer, hypertension Past Surgical History: Other (Mastectomy) Social history: no significant social history Family history: hypertension Medications and Allergies Allergies Allergy/AdvReac Type Severity Reaction Status Date / Time aspirin AdvReac GI Upset Verified 01/28/19 12:25 Home Medications Medication Instructions Recorded Confirmed Last Taken Type amLODIPine 5 mg PO DAILY 01/27/19 02/27/19 02/15/19 10:00 History Albuterol Sulfate [Proventil Hfa] 6.7 gm IH Q6H PRN #1 can 02/11/19 02/27/19 02/15/19 15:00 Rx Clindamycin [Clindamycin CAP] 300 mg PO Q8H #21 cap 02/11/19 02/27/19 02/15/19 10:00 Rx oxyCODONE [roxiCODONE] 10 mg PO Q6HR PRN 02/15/19 02/27/19 Unknown History Budesonide/Formoterol Fumarate 2 puff IH BID #1 hfa.aer.ad 02/19/19 02/27/19 Un known Rx [Symbicort 160-4.5 Mcg Inhaler] HYDROcodone/APAP 10-325 [[place] 1 each PO Q6HR PRN #30 tablet 02/19/19 02/27/19 Unknown Rx 10/325] cephALEXin [Keflex] 500 mg PO Q6HR #40 capsule 02/19/19 02/27/19 Unknown Rx Active Meds: Active Medications Acetaminophen (Tylenol) 650 mg PO Q6H PRN PRN Reason: Fever >101 Last Admin: 03/02/19 15:38 Dose: 650 mg Documented by: Albuterol (Proventil) 2.5 mg IH Q4HRT PRN PRN Reason: Shortness Of Breath Last Admin: 02/28/19 12:35 Dose: 2.5 mg Documented by: Albuterol/Ipratropium (Duoneb *Not For Prn Use*) 1 ampul IH TIDRT [facility] Last Admin: 03/03/19 08:01 Dose: 1 ampul Documented by: Lipase/Protease/Amylase (Kaley Zamora 10,500 Unit) 1 each FEEDTUBE PRN PRN PRN Reason: For Clogged Feeding Tube Enoxaparin Sodium (Enoxaparin) 40 mg SUB-Q QDAY@1000 MANISH Last Admin: 03/03/19 09:08 Dose: 40 mg Documented by: Famotidine (Pepcid) 20 mg IV BID [facility] Last Admin: 03/03/19 09:09 Dose: 20 mg Documented by: Glycopyrrolate (Robinul) 2 mg PO TID [facility] Last Admin: 03/03/19 09:00 Dose: 2 mg Documented by: Hydrophilic Ointment (Vaseline Lip Therapy) 1 applic TP Q2HR PRN PRN Reason: Dry Lips Norepinephrine (Levophed Drip 4 Mg/Ns 250 Ml) 4 mg in 250 mls @ 7.5 mls/hr IV TITR MANISH; Protocol Last Titration: 03/03/19 11:40 Dose: 2 mcg/min, 7.5 mls/hr Documented by: Vasopressin 20 unit/ Sodium (Chloride) 101 mls @ 9.09 mls/hr IV TITR MANISH; Protocol Last Admin: 03/03/19 07:45 Dose: 0.03 units/min, 9.09 mls/hr Documented by: Fentanyl Citrate (Fentanyl Drip Premix) 2,000 mcg in 100 mls @ 4.64 mls/hr IV TITR MANISH; Protocol Last Titration: 03/03/19 12:01 Dose: 3 mcg/kg/hr, 13.92 mls/hr Documented by: Dextrose/Sodium Chloride (D5/0.45ns) 1,000 mls @ 75 mls/hr IV DIRECT MANISH Stop: 03/03/19 22:19 Last Admin: 03/03/19 09:39 Dose: 75 mls/hr Documented by: Cefepime HCl (Cefepime/Ns 1 Gm/100 Ml) 1 gm in 100 mls @ 200 mls/hr IV Q8HR [facility]; Protocol Lactulose (Cephulac) 20 gm PO Q12HR [facility] Last Admin: 03/03/19 09:08 Dose: 20 gm Documented by: Methylprednisolone Sodium Succinate (Solu-Medrol) 40 mg IV Q8HR [facility] Last Admin: 03/03/19 05:04 Dose: 40 mg Documented by: Multi-Ingred Cream/Lotion/Oil/Oint (Artificial Tears Ophth Oint) 1 applic OU Q4HR PRN PRN Reason: Dry Eye(s) Scopolamine (Transderm-Scop) 1 each TD Q3D [facility] Last Admin: 03/02/19 18:33 Dose: 1 each Documented by: Simple Syrup (Simple Syrup) 15 ml FEEDTUBE PRN PRN PRN Reason: Hypoglycemia Simple Syrup (Simple Syrup) 30 ml FEEDTUBE PRN PRN PRN Reason: Hypoglycemia Sodium Bicarbonate (Sodium Bicarbonate) 325 mg FEEDTUBE PRN PRN PRN Reason: For Clogged Feeding Tube Review of Systems ROS unobtainable: due to endotracheal tube, due to mental status Physical Examination Vital Signs Pulse Ox 100 02/27/19 11:04 General appearance: other (intubated) Cardiac: Positive: Regular Rhythm, S1/S2, Tachycardia Lungs: Positive: Decreased Breath Sounds, Oxygen, Ventilated Respirations Neuro: Positive: Other (intubated) Abdomen: Negative: Tender Skin: Negative: Rash Results 03/03/19 05:00 03/03/19 05:00 Cardiac Enzymes 03/03/19 Range/Units 05:00 AST 624 H (5-40) units/L CBC 03/03/19 Range/Units 05:00 WBC 17.8 H (4.5-11.0) K/mm3 RBC 3.62 L (3.65-5.03) M/mm3 Hgb 8.8 L (10.1-14.3) gm/dl Hct 28.9 L (30.3-42.9) % Plt Count 373 (140-440) K/mm3 Lymph # Backup Engineer [place] # Backup Engineer Eos # Backup Engineer Baso # Backup Engineer Comprehensive Metabolic Panel 03/03/19 Range/Units 05:00 Sodium 160 H (137-145) mmol/L Potassium 3.5 L D (3.6-5.0) mmol/L Chloride 113.7 H (98-107) mmol/L Carbon Dioxide 30 D (22-30) mmol/L BUN 90 H (7-17) mg/dL Creatinine 1.7 H D (0.7-1.2) mg/dL Glucose 149 H (65-100) mg/dL Calcium 9.0 (8.4-10.2) mg/dL AST 624 H (5-40) units/L ALT 211 H (7-56) units/L Alkaline Phosphatase 416 H (35-129) units/L Total Protein 6.2 L (6.3-8.2) g/dL Albumin 2.2 L (3.9-5) g/dL - Imaging and Cardiology Echo: pending EKG: report reviewed, image reviewed EKG interpretations - Telemetry EKG Rhythm: Sinus Tachycardia - EKG Sinus rhythms and dysrhythmias: sinus tachycardia Assessment and Plan Sinus tachycardia appears physiologic at this time. Await echo. Obtain thyroid profile. Cont supportive measures. Overall guarded prognosis. The patient has been seen in conjunction with Dr. rTan who agrees with the assessment and plan of care. - Patient Problems (1) Sinus tachycardia Current Visit: Yes Status: Acute (2) Acute respiratory failure Current Visit: Yes Status: Acute (3) Pneumonia Current Visit: Yes Status: Suspected Qualifiers: Pneumonia type: due to unspecified organism Laterality: bilateral Lung location: unspecified part of lung Qualified Code(s): J18.9 - Pneumonia, unspecified organism (4) Sepsis Current Visit: Yes Status: Acute Qualifiers: Sepsis type: sepsis due to unspecified organism Sepsis acute organ dysfunction status: unspecified Qualified Code(s): A41.9 - Sepsis, unspecified organism (5) Hypotension Current Visit: Yes Status: Acute (6) Metastatic breast cancer Current Visit: Yes Status: Chronic (7) Open breast wound Current Visit: Yes Status: Acute Qualifiers: Encounter type: initial encounter Laterality: unspecified laterality Qu alified Code(s): S21.009A - Unspecified open wound of unspecified breast, initial encounter (8) Hypernatremia Current Visit: Yes Status: Acute (9) SELAM (acute kidney injury) Current Visit: Yes Status: Acute (10) Transaminitis Current Visit: Yes Status: Acute (11) Anemia Current Visit: Yes Status: Acute Qualifiers: Anemia type: unspecified type Qualified Code(s): D64.9 - Anemia, unspecified
[2019-03-03] MEDS ORDERED: FREE WATER PO SCH (14:00)
[2019-03-03] MEDS: CEFEPIME/NS 1 GM/100 ML 1 GM/100 ML BAG IV SCH ×2 (14:20→21:00)
--- NOTE | 2019-03-04 02:50 | XRay Report ---
CHEST 1 VIEW INDICATION / CLINICAL INFORMATION: follow up respiratory failure. COMPARISON: 03/03/2019 FINDINGS: SUPPORT DEVICES: Tubes and lines remain in stable and satisfactory position. HEART / MEDIASTINUM: No significant abnormality. LUNGS / PLEURA: There continues to be diffuse bilateral airspace disease. This does appear to be slig htly improved, especially within the left lung. No pneumothorax. Very small bilateral pleural effusio ns remain stable. ADDITIONAL FINDINGS: No significant additional findings. IMPRESSION: 1. Persistent severe bilateral airspace disease with slight improvement in the left lung. Signer Name: Alysa Castro MD Signed: 03/04/2019 2:46 AM Workstation Name: [id number]
[2019-03-04] MEDS: fentaNYL DRIP Premix 2,000 MCG/100 ML BAG IV SCH ×3 (03:19→19:32)
[2019-03-04 05:05] LABS: Hematocrit 26.6 % (30.3-42.9); Hemoglobin 7.9 gm/dl (10.1-14.3); Mean Corpuscular HGB Conc 30 % (30-34); Mean Corpuscular Volume 79 fl (79-97); Platelet Count 329 K/mm3 (140-440); Red Blood Count 3.36 M/mm3 (3.65-5.03)
[2019-03-04 05:06] LABS: Red Cell Distribution Width 23.1 % (13.2-15.2)
[2019-03-04 05:19] LABS: Albumin 2.1 g/dL (3.9-5); Calcium 8.7 mg/dL (8.4-10.2)
[2019-03-04] MEDS: methylPREDNISolone Sod Succinate 125 MG/2 ML INJ IV SCH ×3 (05:58→21:18)
[2019-03-04] MEDS: CEFEPIME/NS 1 GM/100 ML 1 GM/100 ML BAG IV SCH (05:59)
[2019-03-04 06:21] LABS: Basophils % (Manual) 0 % (0.0-1.8); Eosinophils % (Manual) 0 % (0.0-4.3); Total Cells Counted 100
[2019-03-04 06:22] LABS: Anisocytosis 1+; Platelet Estimate Consistent w Auto
[2019-03-04] MEDS: VASOPRESSIN 20 UNIT in SODIUM CHLORIDE 0.9% 100 ML IV SCH ×2 (06:39→17:59)
[2019-03-04] MEDS: NORepinephrine/NS 4 MG-250 ML 4 MG/250 ML BAG IV SCH (06:40)
[2019-03-04] MEDS: IPRATROPIUM/ALBUTEROL SULFATE 3 ML AMPUL.NEB IH SCH ×3 (08:00→20:21)
[2019-03-04] MEDS: GLYCOPYRROLATE 1 MG TAB PO SCH ×3 (09:00→19:33)
[2019-03-04] MEDS: ENOXAPARIN 30 MG/0.3 ML INJ SUB-Q SCH (09:06)
[2019-03-04] MEDS: LACTULOSE 20 GM/30 ML ORAL LIQD PO SCH ×2 (09:06→21:18)
--- NOTE | 2019-03-04 09:16 | Progress Note ---
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 Transaminitis Metastatic breast cancer Hypernatremia Poor medical compliance Obesity Get renal consult, worsening renal function, probably secondary to vasomotor nephropathy Renal function is improving, avoid hepatotoxic agents Hypernatremia is improving, continue free water flushes and hypotonic solutions( D5-1/2Nsaline) Avoid nephrotoxins and adjust all medications fro GFR and CrCL On Cefepime per ID recommendation, de-escalate as indicated CBC, BMP in am - Wean vasopressor support for MAP>65, currently on norepinephrine and vasopressin -Volume resuscitation per sepsis protocol -VAP bundle addressed -Aspiration precautions, HOB>40 degrees - Lung protective strategies -Adjust minute ventilation for better acid-base balance -CXR, ABG in am -Daily SAT, SBT as tolerated -Continue small bowel feeding tube for nutritional support -VTE prophylaxis -Stress ulcer prophylaxis - Accuchecks with glycemic control for SSI (While critically ill target blood glucose of 140-180 mg/dL; avoid hypoglycemia) - mobility protocol for pressure ulcer prevention - Monitor hemodynamics closely -Monitor electrolyte profile closely and replete as indicated -Chronic home medications, resume as clinically indicated -Mercado catheter in this critically ill patient, with poor urine output, requiring accurate intake and output monitoring and acute renal failure with worsening indices -Wound care CONDITION: CRITICAL PROGNOSIS: GUARDED-POOR CODE STATUS: FULL CODE The high probability of a clinically significant, sudden or life-threatening deterioration of the [respiratory, cardiovascular, renal, hepatology] system(s) required my full and direct attention, intervention and personal management. The aggregate critical care time was [35] minutes without overlap. Time includes spent on; [x] Data Review and interpretation [x] Patient assessment and monitoring of vital signs [x] Documentation [x] Medication orders and management Subjective Date of service: 03/04/19 Principal diagnosis: Ac. hypoxemic resp failure; Sev Sepsis; R. pleural effusion; Met. breast CA Interval history: Patient is seen today for: Acute hypoxemic-hypercapnic respiratory failure; severe Sepsis with septic shock,HAP; ARDS; Right pleural effusion s/p thoracentesis; Metastatic breast cancer; Hypernatremia; Poor medical compliance; Obesity Seen and examined at bedside; 24hour events reviewed; nursing and respiratory care staff consulted; overnight events discussed; Remains critically ill on mechanical ventilatory support; on vasopressor support; on fentanyl at 3mcg, on SAT was restless but not purposeful; LIJ to CVP, worsening renal function Remains on norepinephrine at 6mcg and fixed dose vasopressin. Low grade fevers t his morning. Cultures as negative so far On MVS AC-VC 25/450/10/80% ABG 7.33/57/101/30 Objective Vital Signs - 12hr 03/03/19 03/03/19 03/03/19 21:30 21:45 22:00 Temperature Pulse Rate 122 H 122 H 124 H Pulse Rate [ Anterior Throughout] Pulse Rate [ From Monitor] Respiratory 25 H 25 H 25 H Rate Respiratory Rate [Anterior Throughout] Blood Pressure 105/54 96/54 98/56 O2 Sat by Pulse 97 97 97 Oximetry 03/03/19 03/03/19 03/03/19 22:15 22:21 22:30 Temperature Pulse Rate 125 H 124 H 123 H Pulse Rate [ Anterior Throughout] Pulse Rate [ From Monitor] Respiratory 25 H 25 H 25 H Rate Respiratory Rate [Anterior Throughout] Blood Pressure 107/56 107/56 114/58 O2 Sat by Pulse 97 97 97 Oximetry 03/03/19 03/03/19 03/03/19 22:45 23:00 23:15 Temperature Pulse Rate 124 H 122 H 121 H Pulse Rate [ Anterior Throughout] Pulse Rate [ From Monitor] Respiratory 25 H 25 H 25 H Rate Respiratory Rate [Anterior Throughout] Blood Pressure 101/60 101/57 100/55 O2 Sat by Pulse 98 98 98 Oximetry 03/03/19 03/03/19 03/03/19 23:30 23:31 23:45 Temperature 98.8 F Pulse Rate 120 H 119 H Pulse Rate [ Anterior Throughout] Pulse Rate [ From Monitor] Respiratory 25 H 25 H Rate Respiratory Rate [Anterior Throughout] Blood Pressure 99/62 102/54 O2 Sat by Pulse 98 98 Oximetry 03/04/19 03/04/19 03/04/19 00:00 00:04 00:15 Temperature Pulse Rate 119 H 120 H 120 H Pulse Rate [ Anterior Throughout] Pulse Rate [ 119 H From Monitor] Respiratory 25 H 25 H Rate Respiratory Rate [Anterior Throughout] Blood Pressure 106/57 102/54 110/63 O2 Sat by Pulse 98 98 98 Oximetry 03/04/19 03/04/19 03/04/19 00:30 00:45 01:00 Temperature Pulse Rate 118 H 118 H 117 H Pulse Rate [ Anterior Throughout] Pulse Rate [ From Monitor] Respiratory 25 H 25 H 25 H Rate Respiratory Rate [Anterior Throughout] Blood Pressure 109/56 104/55 107/58 O2 Sat by Pulse 98 97 97 Oximetry 03/04/19 03/04/19 03/04/19 01:15 01:30 01:45 Temperature Pulse Rate 119 H 118 H 120 H Pulse Rate [ Anterior Throughout] Pulse Rate [ From Monitor] Respiratory 25 H 25 H 25 H Rate Respiratory Rate [Anterior Throughout] Blood Pressure 106/57 114/57 109/58 O2 Sat by Pulse 97 98 98 Oximetry 03/04/19 03/04/19 03/04/19 02:00 02:15 02:30 Temperature Pulse Rate 120 H 120 H 119 H Pulse Rate [ Anterior Throughout] Pulse Rate [ From Monitor] Respiratory 25 H 25 H 25 H Rate Respiratory Rate [Anterior Throughout] Blood Pressure 108/61 110/57 103/52 O2 Sat by Pulse 98 98 Oximetry 03/04/19 03/04/19 03/04/19 02:45 03:00 03:15 Temperature Pulse Rate 117 H 117 H 117 H Pulse Rate [ Anterior Throughout] Pulse Rate [ From Monitor] Respiratory 25 H 25 H 25 H Rate Respiratory Rate [Anterior Throughout] Blood Pressure 105/53 96/57 105/54 O2 Sat by Pulse Oximetry 03/04/19 03/04/19 03/04/19 03:30 03:37 03:45 Temperature 100 F H Pulse Rate 116 H 117 H Pulse Rate [ Anterior Throughout] Pulse Rate [ From Monitor] Respiratory 25 H 25 H Rate Respiratory Rate [Anterior Throughout] Blood Pressure 107/56 108/59 O2 Sat by Pulse 97 97 Oximetry 03/04/19 03/04/19 03/04/19 04:00 04:15 04:30 Temperature Pulse Rate 117 H 115 H 115 H Pulse Rate [ Anterior Throughout] Pulse Rate [ 117 H From Monitor] Respiratory 25 H 26 H 25 H Rate Respiratory Rate [Anterior Throughout] Blood Pressure 111/57 109/60 115/57 O2 Sat by Pulse 97 97 97 Oximetry 03/04/19 03/04/19 03/04/19 04:35 04:45 05:00 Temperature Pulse Rate 115 H 114 H 114 H Pulse Rate [ Anterior Throughout] Pulse Rate [ From Monitor] Respiratory 24 25 H Rate Respiratory Rate [Anterior Throughout] Blood Pressure 109/60 116/58 114/62 O2 Sat by Pulse 97 97 97 Oximetry 03/04/19 03/04/19 03/04/19 05:15 05:30 05:45 Temperature Pulse Rate 113 H 114 H 114 H Pulse Rate [ Anterior Throughout] Pulse Rate [ From Monitor] Respiratory 25 H 25 H 25 H Rate Respiratory Rate [Anterior Throughout] Blood Pressure 116/62 116/62 118/63 O2 Sat by Pulse 97 97 97 Oximetry 03/04/19 03/04/19 03/04/19 06:00 06:15 06:30 Temperature Pulse Rate 113 H 115 H 114 H Pulse Rate [ Anterior Throughout] Pulse Rate [ From Monitor] Respiratory 25 H 25 H 25 H Rate Respiratory Rate [Anterior Throughout] Blood Pressure 119/60 116/63 113/61 O2 Sat by Pulse 97 97 97 Oximetry 03/04/19 03/04/19 03/04/19 06:45 07:00 07:15 Temperature Pulse Rate 113 H 113 H 112 H Pulse Rate [ Anterior Throughout] Pulse Rate [ From Monitor] Respiratory 25 H 25 H 25 H Rate Respiratory Rate [Anterior Throughout] Blood Pressure 115/61 115/61 114/62 O2 Sat by Pulse 97 97 97 Oximetry 03/04/19 03/04/19 03/04/19 07:30 07:45 08:00 Temperature 100.2 F H Pulse Rate 112 H 114 H 111 H Pulse Rate [ 108 H Anterior Throughout] Pulse Rate [ From Monitor] Respiratory 25 H 24 25 H Rate Respiratory 25 H Rate [Anterior Throughout] Blood Pressure 123/66 113/56 112/54 O2 Sat by Pulse 97 97 98 Oximetry 03/04/19 03/04/19 03/04/19 08:15 08:30 08:45 Temperature Pulse Rate 110 H 113 H 113 H Pulse Rate [ Anterior Throughout] Pulse Rate [ From Monitor] Respiratory 25 H 25 H 25 H Rate Respiratory Rate [Anterior Throughout] Blood Pressure 118/58 114/59 107/56 O2 Sat by Pulse 98 93 93 Oximetry 03/04/19 09:00 Temperature Pulse Rate 113 H Pulse Rate [ Anterior Throughout] Pulse Rate [ From Monitor] Respiratory 25 H Rate Respiratory Rate [Anterior Throughout] Blood Pressure 106/52 O2 Sat by Pulse 93 Oximetry Constitutional: lethargic, other (middle aged obese AAF with mildly increased respiratory distress on MVS) Eyes: icteric ENT: other (Small bowel feeding tube in place, 7.[address] 23cm at the lip) Neck: supple, no lymphadenopathy, no JVD, other (Left IJ CVC; large neck circumference) Effort: mildly labored Ascultation: Bilateral: diminished breath sounds, rales Percussion: Bilateral: not dull Cardiovascular: regular rate and rhythm, other (Tachycardia S1,S2, no murmurs. Anterior chest wall dressing) Gastrointestinal: normoactive bowel sounds, soft, non-tender, non-distended Integumentary: other (Chest wall wound) Extremities: no cyanosis, pulses normal, no ischemia or petechiae, edema, other (edema) Neurologic: pupils equal and round, other (sedated, unable to assess) Psychiatric: other (unable to assess re: AMS) CBC and BMP: 03/04/19 04:38 03/04/19 04:38 ABG, PT/INR, D-dimer: ABG POC ABG pH 7.332 (7.35-7.45) L 03/04/19 04:11 ABG pH 7.335 pH Units (7.350-7.450) L 03/03/19 05:25 POC ABG pCO2 57.1 (35-45) H 03/04/19 04:11 ABG pCO2 61.3 mm Hg 03/03/19 05:25 POC ABG pO2 101 (80-105) 03/04/19 04:11 ABG pO2 89.2 mm Hg (80.0-90.0) 03/03/19 05:25 POC ABG HCO3 30.2 (22-26 mml/L) 03/04/19 04:11 POC ABG Total CO2 32 (23-27mmol/L) 03/04/19 04:11 POC ABG O2 Sat 97 03/04/19 04:11 ABG O2 Saturation 97.0 % (95.0-99.0) 03/03/19 05:25 PT/INR, D-dimer PT 14.8 Sec. (12.2-14.9) 02/27/19 12:38 INR 1.17 (0.87-1.13) H 02/27/19 12:38 D-Dimer 5778.32 ng/mlDDU (0-234) H 02/27/19 12:38 Abnormal lab findings: Abnormal Labs 02/27/19 02/27/19 02/27/19 11:33 11:33 11:33 WBC 18.6 H RBC 3.60 L Hgb 8.7 L Hct 28.8 L MCH 24 L MCHC RDW 23.0 H Plt Count 507 H Lymph % (Auto) 12.9 L [place] # 1.3 H Seg Neutrophils % 79.7 H Seg Neuts % (Manual) Lymphocytes % (Manual) Nucleated RBC % Seg Neutrophils # 14.8 H Seg Neutrophils # Man Lymphocytes # (Manual) INR D-Dimer POC ABG pH ABG pH POC ABG pCO2 POC ABG pO2 ABG pO2 ABG HCO3 ABG O2 Saturation ABG Base Excess ABG Hemoglobin Oxyhemoglobin Sodium Potassium Chloride 96.8 L Carbon Dioxide BUN 28 H Creatinine 0.5 L Glucose 169 H POC Glucose Lactic Acid 3.40 H* Phosphorus Magnesium AST ALT Alkaline Phosphatase Ammonia Total Creatine Kinase 197 H CK-MB (CK-2) 4.1 H NT-Pro-B Natriuret Pep Total Protein Albumin Free T4 Urine Creatinine Crossmatch 02/27/19 02/27/19 02/27/19 11:33 11:45 11:47 WBC RBC Hgb Hct MCH MCHC RDW Plt Count Lymph % (Auto) [place] # Seg Neutrophils % Seg Neuts % (Manual) Lymphocytes % (Manual) Nucleated RBC % Seg Neutrophils # Seg Neutrophils # Man Lymphocytes # (Manual) INR D-Dimer POC ABG pH ABG pH POC ABG pCO2 POC ABG pO2 ABG pO2 ABG HCO3 ABG O2 Saturation ABG Base Excess ABG Hemoglobin Oxyhemoglobin Sodium Potassium Chloride Carbon Dioxide BUN Creatinine Glucose POC Glucose 169 H Lactic Acid Phosphorus Magnesium AST 95 H ALT Alkaline Phosphatase 130 H Ammonia Total Creatine Kinase CK-MB (CK-2) NT-Pro-B Natriuret Pep Total Protein Albumin 2.9 L Free T4 Urine Creatinine Crossmatch See Detail 02/27/19 02/27/19 02/27/19 12:30 12:38 14:08 WBC RBC Hgb Hct MCH MCHC RDW Plt Count Lymph % (Auto) [place] # Seg Neutrophils % Seg Neuts % (Manual) Lymphocytes % (Manual) Nucleated RBC % Seg Neutrophils # Seg Neutrophils # Man Lymphocytes # (Manual) INR 1.17 H D-Dimer 5778.32 H POC ABG pH 7.326 L ABG pH POC ABG pCO2 POC ABG pO2 129 H ABG pO2 ABG HCO3 ABG O2 Saturation ABG Base Excess ABG Hemoglobin Oxyhemoglobin Sodium Potassium Chloride Carbon Dioxide BUN Creatinine Glucose POC Glucose Lactic Acid 3.00 H* Phosphorus Magnesium AST ALT Alkaline Phosphatase Ammonia Total Creatine Kinase CK-MB (CK-2) NT-Pro-B Natriuret Pep Total Protein Albumin Free T4 Urine Creatinine Crossmatch 02/27/19 02/27/19 02/27/19 15:03 16:06 18:08 WBC RBC Hgb Hct MCH MCHC RDW Plt Count Lymph % (Auto) [place] # Seg Neutrophils % Seg Neuts % (Manual) Lymphocytes % (Manual) Nucleated RBC % Seg Neutrophils # Seg Neutrophils # Man Lymphocytes # (Manual) INR D-Dimer POC ABG pH ABG pH POC ABG pCO2 68.8 H POC ABG pO2 225 H ABG pO2 ABG HCO3 ABG O2 Saturation ABG Base Excess ABG Hemoglobin Oxyhemoglobin Sodium Potassium Chloride Carbon Dioxide BUN Creatinine Glucose POC Glucose Lactic Acid 3.20 H* 2.80 H* Phosphorus Magnesium AST ALT Alkaline Phosphatase Ammonia Total Creatine Kinase CK-MB (CK-2) NT-Pro-B Natriuret Pep Total Protein Albumin Free T4 Urine Creatinine Crossmatch 02/27/19 02/28/19 02/28/19 18:12 10:00 10:00 WBC 13.3 H RBC 3.39 L Hgb 8.1 L Hct 26.7 L MCH 24 L MCHC RDW 22.5 H Plt Count Lymph % (Auto) [place] # Seg Neutrophils % Seg Neuts % (Manual) Lymphocytes % (Manual) Nucleated RBC % Seg Neutrophils # Seg Neutrophils # Man Lymphocytes # (Manual) INR D-Dimer POC ABG pH ABG pH POC ABG pCO2 POC ABG pO2 ABG pO2 ABG HCO3 ABG O2 Saturation ABG Base Excess ABG Hemoglobin Oxyhemoglobin Sodium 146 H Potassium Chloride Carbon Dioxide 32 H BUN 32 H Creatinine 0.5 L Glucose 111 H POC Glucose Lactic Acid 2.30 H* Phosphorus Magnesium AST 93 H ALT Alkaline Phosphatase Ammonia Total Creatine Kinase CK-MB (CK-2) NT-Pro-B Natriuret Pep Total Protein Albumin 2.6 L Free T4 Urine Creatinine Crossmatch 02/28/19 03/01/19 03/01/19 10:26 00:05 05:00 WBC 20.2 H RBC Hgb 9.0 L Hct 29.9 L MCH 24 L MCHC RDW 22.8 H Plt Count 498 H Lymph % (Auto) [place] # Seg Neutrophils % Seg Neuts % (Manual) Lymphocytes % (Manual) Nucleated RBC % Seg Neutrophils # Seg Neutrophils # Man Lymphocytes # (Manual) INR D-Dimer POC ABG pH ABG pH POC ABG pCO2 54.2 H POC ABG pO2 ABG pO2 ABG HCO3 ABG O2 Saturation ABG Base Excess ABG Hemoglobin Oxyhemoglobin Sodium Potassium Chloride Carbon Dioxide BUN Creatinine Glucose POC Glucose 167 H Lactic Acid Phosphorus Magnesium AST ALT Alkaline Phosphatase Ammonia Total Creatine Kinase CK-MB (CK-2) NT-Pro-B Natriuret Pep Total Protein Albumin Free T4 Urine Creatinine Crossmatch 03/01/19 03/01/19 03/01/19 05:00 12:36 17:31 WBC RBC Hgb Hct MCH MCHC RDW Plt Count Lymph % (Auto) [place] # Seg Neutrophils % Seg Neuts % (Manual) Lymphocytes % (Manual) Nucleated RBC % Seg Neutrophils # Seg Neutrophils # Man Lymphocytes # (Manual) INR D-Dimer POC ABG pH ABG pH POC ABG pCO2 POC ABG pO2 ABG pO2 ABG HCO3 ABG O2 Saturation ABG Base Excess ABG Hemoglobin Oxyhemoglobin Sodium 148 H Potassium Chloride Carbon Dioxide 37 H BUN 43 H Creatinine 0.6 L Glucose 150 H POC Glucose 140 H 157 H Lactic Acid Phosphorus Magnesium AST ALT Alkaline Phosphatase Ammonia Total Creatine Kinase CK-MB (CK-2) NT-Pro-B Natriuret Pep Total Protein Albumin Free T4 Urine Creatinine Crossmatch 03/02/19 03/02/19 03/02/19 04:29 04:32 05:27 WBC RBC Hgb Hct MCH MCHC RDW Plt Count Lymph % (Auto) [place] # Seg Neutrophils % Seg Neuts % (Manual) Lymphocytes % (Manual) Nucleated RBC % Seg Neutrophils # Seg Neutrophils # Man Lymphocytes # (Manual) INR D-Dimer POC ABG pH 7.056 L ABG pH POC ABG pCO2 POC ABG pO2 64 L ABG pO2 ABG HCO3 ABG O2 Saturation ABG Base Excess ABG Hemoglobin Oxyhemoglobin Sodium Potassium Chloride Carbon Dioxide BUN Creatinine Glucose POC Glucose 161 H Lactic Acid Phosphorus Magnesium AST ALT Alkaline Phosphatase Ammonia Total Creatine Kinase CK-MB (CK-2) NT-Pro-B Natriuret Pep 2143 H Total Protein Albumin Free T4 Urine Creatinine Crossmatch 03/02/19 03/02/19 03/02/19 05:27 05:27 05:27 WBC 17.8 H RBC 3.50 L Hgb 8.5 L Hct 29.5 L MCH 24 L MCHC 29 L RDW 21.9 H Plt Count Lymph % (Auto) [place] # Seg Neutrophils % Seg Neuts % (Manual) 94.0 H Lymphocytes % (Manual) 2.0 L Nucleated RBC % 1.0 H Seg Neutrophils # Seg Neutrophils # Man 16.7 H Lymphocytes # (Manual) 0.4 L INR D-Dimer POC ABG pH ABG pH POC ABG pCO2 POC ABG pO2 ABG pO2 ABG HCO3 ABG O2 Saturation ABG Base Excess ABG Hemoglobin Oxyhemoglobin Sodium 156 H D Potassium 5.4 H Chloride 108.6 H Carbon Dioxide 39 H BUN 60 H Creatinine Glucose 159 H POC Glucose Lactic Acid Phosphorus Magnesium AST 164 H ALT Alkaline Phosphatase 164 H Ammonia 81.0 H Total Creatine Kinase CK-MB (CK-2) NT-Pro-B Natriuret Pep Total Protein 6.2 L Albumin 2.2 L Free T4 Urine Creatinine Crossmatch 03/02/19 03/02/19 03/02/19 05:27 06:04 10:56 WBC RBC Hgb Hct MCH MCHC RDW Plt Count Lymph % (Auto) [place] # Seg Neutrophils % Seg Neuts % (Manual) Lymphocytes % (Manual) Nucleated RBC % Seg Neutrophils # Seg Neutrophils # Man Lymphocytes # (Manual) INR D-Dimer POC ABG pH ABG pH 7.239 L POC ABG pCO2 POC ABG pO2 ABG pO2 60.0 L 103.9 H ABG HCO3 36.6 H 32.9 H ABG O2 Saturation 88.3 L ABG Base Excess 7.3 H 7.7 H ABG Hemoglobin 9.1 L 9.0 L Oxyhemoglobin 86.3 L Sodium Potassium Chloride Carbon Dioxide BUN Creatinine Glucose POC Glucose Lactic Acid Phosphorus 6.90 H Magnesium 2.80 H AST ALT Alkaline Phosphatase Ammonia Total Creatine Kinase CK-MB (CK-2) NT-Pro-B Natriuret Pep Total Protein Albumin Free T4 Urine Creatinine Crossmatch 03/02/19 03/02/19 03/02/19 13:58 23:40 Unknown WBC RBC Hgb Hct MCH MCHC RDW Plt Count Lymph % (Auto) [place] # Seg Neutrophils % Seg Neuts % (Manual) Lymphocytes % (Manual) Nucleated RBC % Seg Neutrophils # Seg Neutrophils # Man Lymphocytes # (Manual) INR D-Dimer POC ABG pH ABG pH POC ABG pCO2 POC ABG pO2 ABG pO2 ABG HCO3 ABG O2 Saturation ABG Base Excess ABG Hemoglobin Oxyhemoglobin Sodium Potassium Chloride Carbon Dioxide BUN Creatinine Glucose POC Glucose 127 H 161 H Lactic Acid Phosphorus Magnesium AST ALT Alkaline Phosphatase Ammonia Total Creatine Kinase CK-MB (CK-2) NT-Pro-B Natriuret Pep Total Protein Albumin Free T4 Urine Creatinine 218.2 H Crossmatch 03/03/19 03/03/19 03/03/19 05:00 05:00 05:25 WBC 17.8 H RBC 3.62 L Hgb 8.8 L Hct 28.9 L MCH 24 L MCHC RDW 22.8 H Plt Count Lymph % (Auto) [place] # Seg Neutrophils % Seg Neuts % (Manual) 96.0 H Lymphocytes % (Manual) 1.0 L Nucleated RBC % 3.0 H Seg Neutrophils # Seg Neutrophils # Man 17.1 H Lymphocytes # (Manual) 0.2 L INR D-Dimer POC ABG pH ABG pH 7.335 L POC ABG pCO2 POC ABG pO2 ABG pO2 ABG HCO3 32.0 H ABG O2 Saturation ABG Base Excess 5.2 H ABG Hemoglobin 8.2 L Oxyhemoglobin 94.9 L Sodium 160 H Potassium 3.5 L D Chloride 113.7 H Carbon Dioxide BUN 90 H Creatinine 1.7 H D Glucose 149 H POC Glucose Lactic Acid Phosphorus Magnesium 2.90 H AST 624 H ALT 211 H Alkaline Phosphatase 416 H Ammonia Total Creatine Kinase CK-MB (CK-2) NT-Pro-B Natriuret Pep Total Protein 6.2 L Albumin 2.2 L Free T4 Urine Creatinine Crossmatch 03/03/19 03/03/19 03/03/19 05:41 12:27 15:54 WBC RBC Hgb Hct MCH MCHC RDW Plt Count Lymph % (Auto) [place] # Seg Neutrophils % Seg Neuts % (Manual) Lymphocytes % (Manual) Nucleated RBC % Seg Neutrophils # Seg Neutrophils # Man Lymphocytes # (Manual) INR D-Dimer POC ABG pH ABG pH POC ABG pCO2 POC ABG pO2 ABG pO2 ABG HCO3 ABG O2 Saturation ABG Base Excess ABG Hemoglobin Oxyhemoglobin Sodium Potassium Chloride Carbon Dioxide BUN Creatinine Glucose POC Glucose 150 H 167 H Lactic Acid Phosphorus Magnesium AST ALT Alkaline Phosphatase Ammonia Total Creatine Kinase CK-MB (CK-2) NT-Pro-B Natriuret Pep Total Protein Albumin Free T4 0.50 L Urine Creatinine Crossmatch 03/03/19 03/03/19 03/04/19 17:32 23:57 04:11 WBC RBC Hgb Hct MCH MCHC RDW Plt Count Lymph % (Auto) [place] # Seg Neutrophils % Seg Neuts % (Manual) Lymphocytes % (Manual) Nucleated RBC % Seg Neutrophils # Seg Neutrophils # Man Lymphocytes # (Manual) INR D-Dimer POC ABG pH 7.332 L ABG pH POC ABG pCO2 57.1 H POC ABG pO2 ABG pO2 ABG HCO3 ABG O2 Saturation ABG Base Excess ABG Hemoglobin Oxyhemoglobin Sodium Potassium Chloride Carbon Dioxide BUN Creatinine Glucose POC Glucose 165 H 202 H Lactic Acid Phosphorus Magnesium AST ALT Alkaline Phosphatase Ammonia Total Creatine Kinase CK-MB (CK-2) NT-Pro-B Natriuret Pep Total Protein Albumin Free T4 Urine Creatinine Crossmatch 03/04/19 03/04/19 03/04/19 04:38 04:38 05:30 WBC 23.0 H RBC 3.36 L Hgb 7.9 L Hct 26.6 L MCH 24 L MCHC RDW 23.1 H Plt Count Lymph % (Auto) [place] # Seg Neutrophils % Seg Neuts % (Manual) 98.0 H Lymphocytes % (Manual) 0 L Nucleated RBC % Seg Neutrophils # Seg Neutrophils # Man 22.5 H Lymphocytes # (Manual) 0.0 L INR D-Dimer POC ABG pH ABG pH POC ABG pCO2 POC ABG pO2 ABG pO2 ABG HCO3 ABG O2 Saturation ABG Base Excess ABG Hemoglobin Oxyhemoglobin Sodium 151 H D Potassium Chloride 110.4 H Carbon Dioxide BUN 103 H Creatinine 2.0 H Glucose 177 H POC Glucose 172 H Lactic Acid Phosphorus Magnesium AST 244 H ALT 159 H Alkaline Phosphatase 365 H Ammonia Total Creatine Kinase CK-MB (CK-2) NT-Pro-B Natriuret Pep Total Protein 5.9 L Albumin 2.1 L Free T4 Urine Creatinine Crossmatch Chest x-ray: image reviewed (Persitent bilateral alveolar infiltrates, Right pleural effusion, ETT in place) Additional Studies: CT head- Cranial CT scan within normal limits. Fluid in sphenoid sinus Right pleural fluid cytology- positive for metastatic adenocarcinoma Limited transthoracic echocardiogram- Grossly LV size is normal; no pericardial effusion Allied health notes reviewed: RT
[2019-03-04] MEDS ORDERED: D5W/0.45% NACL 1,000 ML IV SCH (10:00)
[2019-03-04] MEDS ORDERED: FAMOTIDINE 20 MG/2 ML INJ IV SCH (10:00)
--- NOTE | 2019-03-04 10:36 | Progress Note ---
Assessment and Plan Limited echo reviewed - normal EF. HR improving. Sinus tachycardia appears physiologic at this time. Cont supportive management. Overall guarded prognosis. The patient has been seen in conjunction with Dr. Tran who agrees with the assessment and plan of care. - Patient Problems (1) Sinus tachycardia Current Visit: Yes Status: Acute (2) Acute respiratory failure Current Visit: Yes Status: Acute (3) Pneumonia Current Visit: Yes Status: Suspected Qualifiers: Pneumonia type: due to unspecified organism Laterality: bilateral Lung location: unspecified part of lung Qualified Code(s): J18.9 - Pneumonia, u nspecified organism (4) Sepsis Current Visit: Yes Status: Acute Qualifiers: Sepsis type: sepsis due to unspecified organism Sepsis acute organ dysfunction status: unspecified Qualified Code(s): A41.9 - Sepsis, unspecified organism (5) Hypotension Current Visit: Yes Status: Acute (6) Metastatic breast cancer Current Visit: Yes Status: Chronic (7) Open breast wound Current Visit: Yes Status: Acute Qualifiers: Encounter type: initial encounter Laterality: unspecified laterality Qualified Code(s): S21.009A - Unspecified open wound of unspecified breast, initial encounter (8) Hypernatremia Current Visit: Yes Status: Acute (9) SELAM (acute kidney injury) Current Visit: Yes Status: Acute (10) Transaminitis Current Visit: Yes Status: Acute (11) Anemia Current Visit: Yes Status: Acute Qualifiers: Anemia type: unspecified type Qualified Code(s): D64.9 - Anemia, unspecified Subjective Date of service: 03/04/19 Principal diagnosis: Ac. hypoxemic resp failure; Sev Sepsis; R. pleural effusion; Met. breast CA Interval history: pt remains intubated, requiring vasopressors, in ST on tele HR 110s. no family at bedside. Objective Vital Signs Temp Pulse Pulse Pulse Pulse Pulse Resp 03/04/19 09:00 113 H 25 H 03/04/19 08:45 113 H 25 H 03/04/19 08:30 113 H 25 H 03/04/19 08:15 110 H 25 H 03/04/19 08:00 100.2 F H 111 H 108 H 25 H 03/04/19 07:45 114 H 24 03/04/19 07:30 112 H 25 H 03/04/19 07:15 112 H 25 H 03/04/19 07:00 113 H 25 H 03/04/19 06:45 113 H 25 H 03/04/19 06:30 114 H 25 H 03/04/19 06:15 115 H 25 H 03/04/19 06:00 113 H 25 H 03/04/19 05:45 114 H 25 H 03/04/19 05:30 114 H 25 H 03/04/19 05:15 113 H 25 H 03/04/19 05:00 114 H 25 H 03/04/19 04:45 114 H 24 03/04/19 04:35 115 H 03/04/19 04:30 115 H 25 H 03/04/19 04:15 115 H 26 H 03/04/19 04:00 117 H 117 H 25 H 03/04/19 03:45 117 H 25 H 03/04/19 03:37 100 F H 03/04/19 03:30 116 H 25 H 03/04/19 03:15 117 H 25 H 03/04/19 03:00 117 H 25 H 03/04/19 02:45 117 H 25 H 03/04/19 02:30 119 H 25 H 03/04/19 02:15 120 H 25 H 03/04/19 02:00 120 H 25 H 03/04/19 01:45 120 H 25 H 03/04/19 01:30 118 H 25 H 03/04/19 01:15 119 H 25 H 03/04/19 01:00 117 H 25 H 03/04/19 00:45 118 H 25 H 03/04/19 00:30 118 H 25 H 03/04/19 00:15 120 H 25 H 03/04/19 00:04 120 H 03/04/19 00:00 119 H 119 H 25 H 03/03/19 23:45 119 H 25 H 03/03/19 23:31 98.8 F 03/03/19 23:30 120 H 25 H 03/03/19 23:15 121 H 25 H 03/03/19 23:00 122 H 25 H 03/03/19 22:45 124 H 25 H 03/03/19 22:30 123 H 25 H 03/03/19 22:21 124 H 25 H 03/03/19 22:15 125 H 25 H 03/03/19 22:00 124 H 25 H 03/03/19 21:45 122 H 25 H 03/03/19 21:30 122 H 25 H 03/03/19 21:15 122 H 25 H 03/03/19 21:00 122 H 25 H 03/03/19 20:45 121 H 25 H 03/03/19 20:35 124 H 03/03/19 20:30 124 H 24 03/03/19 20:27 124 H 03/03/19 20:21 124 H 25 H 03/03/19 20:11 119 H 15 03/03/19 20:00 97.4 F L 122 H 122 H 25 H 03/03/19 19:51 123 H 22 03/03/19 19:41 124 H 23 03/03/19 19:30 124 H 25 H 03/03/19 19:21 124 H 25 H 03/03/19 19:11 124 H 25 H 03/03/19 19:00 123 H 25 H 03/03/19 18:51 125 H 25 H 03/03/19 18:41 124 H 13 03/03/19 18:30 124 H 19 03/03/19 18:21 124 H 17 03/03/19 18:11 123 H 21 03/03/19 18:00 123 H 21 03/03/19 17:51 124 H 12 03/03/19 17:41 124 H 25 H 03/03/19 17:30 125 H 21 03/03/19 17:21 124 H 20 03/03/19 17:11 124 H 19 03/03/19 17:00 125 H 22 03/03/19 16:51 125 H 21 03/03/19 16:41 126 H 23 03/03/19 16:30 109 H 22 03/03/19 16:21 121 H 17 03/03/19 16:11 03/03/19 16:00 99 F 116 H 116 H 26 H 03/03/19 15:51 124 H 25 H 03/03/19 15:41 125 H 26 H 03/03/19 15:39 124 H 03/03/19 15:30 124 H 25 H 03/03/19 15:21 121 H 25 H 03/03/19 15:11 123 H 26 H 03/03/19 15:00 124 H 25 H 03/03/19 14:51 121 H 25 H 03/03/19 14:41 122 H 24 03/03/19 14:30 120 H 25 H 03/03/19 14:21 118 H 31 H 03/03/19 14:11 117 H 19 03/03/19 14:00 119 H 25 H 03/03/19 13:51 119 H 26 H 03/03/19 13:49 117 H 119 H 03/03/19 13:41 122 H 24 03/03/19 13:30 121 H 25 H 03/03/19 13:21 109 H 24 03/03/19 13:11 118 H 25 H 03/03/19 13:00 116 H 26 H 03/03/19 12:51 03/03/19 12:41 03/03/19 12:31 03/03/19 12:21 121 H 26 H 03/03/19 12:11 122 H 27 H 03/03/19 12:00 98.8 F 117 H 117 H 27 H 03/03/19 11:51 121 H 25 H 03/03/19 11:40 109 H 25 H 03/03/19 11:30 113 H 25 H 03/03/19 11:20 121 H 27 H 03/03/19 11:10 125 H 27 H 03/03/19 11:00 117 H 28 H 03/03/19 10:50 126 H 28 H 03/03/19 10:40 121 H 27 H Resp Resp BP Pulse Ox 03/04/19 09:00 106/52 93 03/04/19 08:45 107/56 93 03/04/19 08:30 114/59 93 03/04/19 08:15 118/58 98 03/04/19 08:00 25 H 112/54 98 03/04/19 07:45 113/56 97 03/04/19 07:30 123/66 97 03/04/19 07:15 114/62 97 03/04/19 07:00 115/61 97 03/04/19 06:45 115/61 97 03/04/19 06:30 113/61 97 03/04/19 06:15 116/63 97 03/04/19 06:00 119/60 97 03/04/19 05:45 118/63 97 03/04/19 05:30 116/62 97 03/04/19 05:15 116/62 97 03/04/19 05:00 114/62 97 03/04/19 04:45 116/58 97 03/04/19 04:35 109/60 97 03/04/19 04:30 115/57 97 03/04/19 04:15 109/60 97 03/04/19 04:00 111/57 97 03/04/19 03:45 108/59 97 03/04/19 03:37 03/04/19 03:30 107/56 97 03/04/19 03:15 105/54 03/04/19 03:00 96/57 03/04/19 02:45 105/53 03/04/19 02:30 103/52 03/04/19 02:15 110/57 98 03/04/19 02:00 108/61 98 03/04/19 01:45 109/58 98 03/04/19 01:30 114/57 98 03/04/19 01:15 106/57 97 03/04/19 01:00 107/58 97 03/04/19 00:45 104/55 97 03/04/19 00:30 109/56 98 03/04/19 00:15 110/63 98 03/04/19 00:04 102/54 98 03/04/19 00:00 106/57 98 03/03/19 23:45 102/54 98 03/03/19 23:31 03/03/19 23:30 99/62 98 03/03/19 23:15 100/55 98 03/03/19 23:00 101/57 98 03/03/19 22:45 101/60 98 03/03/19 22:30 114/58 97 03/03/19 22:21 107/56 97 03/03/19 22:15 107/56 97 03/03/19 22:00 98/56 97 03/03/19 21:45 96/54 97 03/03/19 21:30 105/54 97 03/03/19 21:15 104/64 98 03/03/19 21:00 88/53 100 03/03/19 20:45 82/50 100 03/03/19 20:35 29 H 03/03/19 20:30 94/57 95 03/03/19 20:27 94/57 97 03/03/19 20:21 121/69 94 03/03/19 20:11 100/59 95 03/03/19 20:00 100/59 98 03/03/19 19:51 100/56 98 03/03/19 19:41 99/55 98 03/03/19 19:30 99/55 97 03/03/19 19:21 96/53 97 03/03/19 19:11 90/53 97 03/03/19 19:00 86/50 96 03/03/19 18:51 93/51 96 03/03/19 18:41 91/48 97 03/03/19 18:30 91/48 97 03/03/19 18:21 94/46 97 03/03/19 18:11 91/48 97 03/03/19 18:00 83/50 96 03/03/19 17:51 84/46 97 03/03/19 17:41 90/46 97 03/03/19 17:30 90/46 97 03/03/19 17:21 99/53 96 03/03/19 17:11 89/44 98 03/03/19 17:00 89/44 97 03/03/19 16:51 91/48 97 03/03/19 16:41 101/69 94 03/03/19 16:30 101/69 94 03/03/19 16:21 101/60 96 03/03/19 16:11 98/53 96 03/03/19 16:00 98/53 93 03/03/19 15:51 97/55 94 03/03/19 15:41 93/52 94 03/03/19 15:39 100/54 93 03/03/19 15:30 93/52 93 03/03/19 15:21 95/57 93 03/03/19 15:11 90/53 93 03/03/19 15:00 100/54 93 03/03/19 14:51 90/53 93 03/03/19 14:41 77/47 94 03/03/19 14:30 92/57 95 03/03/19 14:21 74/50 96 03/03/19 14:11 95/51 97 03/03/19 14:00 77/47 96 03/03/19 13:51 95/51 95 03/03/19 13:49 26 H 27 H 03/03/19 13:41 94/50 94 03/03/19 13:30 96/49 93 03/03/19 13:21 94/50 94 03/03/19 13:11 100/58 03/03/19 13:00 100/58 03/03/19 12:51 109/61 03/03/19 12:41 109/61 03/03/19 12:31 109/61 03/03/19 12:21 109/61 96 03/03/19 12:11 107/55 96 03/03/19 12:00 101/63 96 03/03/19 11:51 122/83 96 03/03/19 11:40 107/55 96 03/03/19 11:30 86/50 86 03/03/19 11:20 86/50 97 03/03/19 11:10 96/55 96 03/03/19 11:00 96/55 97 03/03/19 10:50 89/50 98 03/03/19 10:40 100/53 98 - Physical Examination General: Other (intubated) Cardiac: Positive: Regular Rhythm, S1/S2 Lungs: Positive: Decreased Breath Sounds, Oxygen, Ventilated Respirations Neuro: Positive: Other (intubated) Abdomen: Negative: Tender Skin: Negative: Rash - Labs and Meds Cardiac Enzymes 03/04/19 Range/Units 04:38 AST 244 H (5-40) units/L CBC 03/04/19 Range/Units 04:38 WBC 23.0 H (4.5-11.0) K/mm3 RBC 3.36 L (3.65-5.03) M/mm3 Hgb 7.9 L (10.1-14.3) gm/dl Hct 26.6 L (30.3-42.9) % Plt Count 329 (140-440) K/mm3 Lymph # Try On Baster Potter # Try On Baster Eos # Try On Baster Baso # Try On Baster Comprehensive Metabolic Panel 03/04/19 Range/Units 04:38 Sodium 151 H D (137-145) mmol/L Potassium 4.5 D (3.6-5.0) mmol/L Chloride 110.4 H (98-107) mmol/L Carbon Dioxide 26 (22-30) mmol/L BUN 103 H (7-17) mg/dL Creatinine 2.0 H (0.7-1.2) mg/dL Glucose 177 H (65-100) mg/dL Calcium 8.7 (8.4-10.2) mg/dL AST 244 H (5-40) units/L ALT 159 H (7-56) units/L Alkaline Phosphatase 365 H (35-129) units/L Total Protein 5.9 L (6.3-8.2) g/dL Albumin 2.1 L (3.9-5) g/dL - Imaging and Cardiology EKG: report reviewed, image reviewed Echo: report reviewed - Telemetry EKG Rhythm: Sinus Tachycardia - EKG Sinus rhythms and dysrhythmias: sinus tachycardia - Allied health notes Allied health notes reviewed: RT
--- NOTE | 2019-03-04 12:40 | Progress Note ---
Assessment and Plan Assessment and plan: - Acute respr failure with hypoxia edema versus pneumonia. Intubated and on MVS 03/01/19 On Lasix On iv Abx Cefepime and vancomycin Pulmonology consulted - Sepsis with leukocytosis, fever, tachy, lactic acidosis Blood cultures drawn - Bilateral opacities: pulmonary edema versus pneumonia On lasix and Antibiotics consult ID Physician - Recurrent pleural effusion s/p thoracentesis recent - Left breast cancer with mets to the bones and liver s/p surgery Dr. Self following Local Wound care. ET nurse consult - Heart failure withelevated BNP Obtian ECHO - Hyperammonemia Contlactulose - Hypernatrmia Free water via [place] - Hypertension Monitor BP - ELevated D- dimer CT angio was negative for PE - Code status: Lucian's still wants her to be full code. Will initiate discussion on hospice transfer with family. Poor prognosis. History Interval history: No new issues overnight. Hospitalist Physical - Constitutional Vitals: Temp Pulse Resp BP Pulse Ox 100.2 F H 115 H 25 H 87/60 94 03/04/19 08:00 03/04/19 12:15 03/04/19 12:15 03/04/19 12:15 03/04/19 12:15 General appearance: Present: other (intubated) - EENT Eyes: Present: PERRL, EOM intact ENT: hearing intact, clear oral mucosa, dentition normal - Neck Neck: Present: supple, normal ROM - Respiratory Respiratory effort: normal Respiratory: bilateral: diminished, rhonchi - Cardiovascular Rhythm: regular Heart Sounds: Present: S1 & S2. Absent: gallop, rub - Extremities Extremities: no ischemia, No edema, Full ROM - Abdominal General gastrointestinal: soft, non-tender, non-distended, normal bowel sounds - Integumentary Integumentary: Present: clear, warm, dry - Neurologic Neurologic: CNII-XII intact, moves all extremities Results - Labs CBC & Chem 7: 03/04/19 04:38 03/04/19 04:38 Labs: Laboratory Last Values WBC 23.0 K/mm3 (4.5-11.0) H 03/04/19 04:38 RBC 3.36 M/mm3 (3.65-5.03) L 03/04/19 04:38 Hgb 7.9 gm/dl (10.1-14.3) L 03/04/19 04:38 Hct 26.6 % (30.3-42.9) L 03/04/19 04:38 MCV 79 fl (79-97) 03/04/19 04:38 MCH 24 pg (28-32) L 03/04/19 04:38 MCHC 30 % (30-34) 03/04/19 04:38 RDW 23.1 % (13.2-15.2) H 03/04/19 04:38 Plt Count 329 K/mm3 (140-440) 03/04/19 04:38 Lymph % (Auto) [employer] 03/04/19 04:38 Curry % (Auto) [employer] 03/04/19 04:38 Eos % (Auto) [employer] 03/04/19 04:38 Baso % (Auto) [employer] 03/04/19 04:38 Lymph # [employer] 03/04/19 04:38 Curry # [employer] 03/04/19 04:38 Eos # [employer] 03/04/19 04:38 Baso # [employer] 03/04/19 04:38 Add Manual Diff Complete 03/04/19 04:38 Total Counted 100 03/04/19 04:38 Seg Neutrophils % [employer] 03/04/19 04:38 Seg Neuts % (Manual) 98.0 % (40.0-70.0) H 03/04/19 04:38 Band Neutrophils % 0 % 03/04/19 04:38 Lymphocytes % (Manual) 0 % (13.4-35.0) L 03/04/19 04:38 Reactive Lymphs % (Man) 0 % 03/04/19 04:38 Monocytes % (Manual) 2.0 % (0.0-7.3) 03/04/19 04:38 Eosinophils % (Manual) 0 % (0.0-4.3) 03/04/19 04:38 Basophils % (Manual) 0 % (0.0-1.8) 03/04/19 04:38 Metamyelocytes % 0 % 03/04/19 04:38 Myelocytes % 0 % 03/04/19 04:38 Promyelocytes % 0 % 03/04/19 04:38 Blast Cells % 0 % 03/04/19 04:38 Nucleated RBC % Not Reportable 03/04/19 04:38 Seg Neutrophils # [employer] 03/04/19 04:38 Seg Neutrophils # Man 22.5 K/mm3 (1.8-7.7) H 03/04/19 04:38 Band Neutrophils # 0.0 K/mm3 03/04/19 04:38 Lymphocytes # (Manual) 0.0 K/mm3 (1.2-5.4) L 03/04/19 04:38 Abs React Lymphs (Man) 0.0 K/mm3 03/04/19 04:38 Monocytes # (Manual) 0.5 K/mm3 (0.0-0.8) 03/04/19 04:38 Eosinophils # (Manual) 0.0 K/mm3 (0.0-0.4) 03/04/19 04:38 Basophils # (Manual) 0.0 K/mm3 (0.0-0.1) 03/04/19 04:38 Metamyelocytes # 0.0 K/mm3 03/04/19 04:38 Myelocytes # 0.0 K/mm3 03/04/19 04:38 Promyelocytes # 0.0 K/mm3 03/04/19 04:38 Blast Cells # 0.0 K/mm3 03/04/19 04:38 WBC Morphology Not Reportable 03/04/19 04:38 Hypersegmented Neuts Not Reportable 03/04/19 04:38 Hyposegmented Neuts Not Reportable 03/04/19 04:38 Hypogranular Neuts Not Reportable 03/04/19 04:38 Smudge Cells Not Reportable 03/04/19 04:38 Toxic Granulation Not Reportable 03/04/19 04:38 Toxic Vacuolation Not Reportable 03/04/19 04:38 Dohle Bodies Not Reportable 03/04/19 04:38 Pelger-Huet Anomaly Not Reportable 03/04/19 04:38 Amelie Rods Not Reportable 03/04/19 04:38 Platelet Estimate Consistent w auto 03/04/19 04:38 Clumped Platelets Not Reportable 03/04/19 04:38 Plt Clumps, EDTA Not Reportable 03/04/19 04:38 Large Platelets Not Reportable 03/04/19 04:38 Giant Platelets Not Reportable 03/04/19 04:38 Platelet Satelliting Not Reportable 03/04/19 04:38 Plt Morphology Comment Not Reportable 03/04/19 04:38 RBC Morphology Not Reportable 03/04/19 04:38 Dimorphic RBCs Not Reportable 03/04/19 04:38 Polychromasia Not Reportable 03/04/19 04:38 Hypochromasia Not Reportable 03/04/19 04:38 Poikilocytosis Not Reportable 03/04/19 04:38 Anisocytosis 1+ 03/04/19 04:38 Microcytosis Not Reportable 03/04/19 04:38 Macrocytosis Not Reportable 03/04/19 04:38 Spherocytes Not Reportable 03/04/19 04:38 Pappenheimer Bodies Not Reportable 03/04/19 04:38 Sickle Cells Not Reportable 03/04/19 04:38 Target Cells Not Reportable 03/04/19 04:38 Tear Drop Cells Not Reportable 03/04/19 04:38 Ovalocytes Not Reportable 03/04/19 04:38 Stomatocytes 1+ 03/03/19 05:00 Helmet Cells Not Reportable 03/04/19 04:38 [place] Bodies Not Reportable 03/04/19 04:38 [place] Rings Not Reportable 03/04/19 04:38 [place] Cells Not Reportable 03/04/19 04:38 Bite Cells Not Reportable 03/04/19 04:38 Crenated Cell Not Reportable 03/04/19 04:38 Elliptocytes Not Reportable 03/04/19 04:38 Acanthocytes (Spur) Not Reportable 03/04/19 04:38 Rouleaux Not Reportable 03/04/19 04:38 Hemoglobin C Crystals Not Reportable 03/04/19 04:38 Schistocytes Not Reportable 03/04/19 04:38 Malaria parasites Not Reportable 03/04/19 04:38 Jose Bodies Not Reportable 03/04/19 04:38 Hem Pathologist Commnt No 03/04/19 04:38 PT 14.8 Sec. (12.2-14.9) 02/27/19 12:38 INR 1.17 (0.87-1.13) H 02/27/19 12:38 APTT 26.9 Sec. (24.2-36.6) 02/27/19 12:38 D-Dimer 5778.32 ng/mlDDU (0-234) H 02/27/19 12:38 POC ABG pH 7.332 (7.35-7.45) L 03/04/19 04:11 ABG pH 7.335 pH Units (7.350-7.450) L 03/03/19 05:25 POC ABG pCO2 57.1 (35-45) H 03/04/19 04:11 ABG pCO2 61.3 mm Hg 03/03/19 05:25 POC ABG pO2 101 (80-105) 03/04/19 04:11 ABG pO2 89.2 mm Hg (80.0-90.0) 03/03/19 05:25 POC ABG HCO3 30.2 (22-26 mml/L) 03/04/19 04:11 ABG HCO3 32.0 mmol/L (20.0-26.0) H 03/03/19 05:25 POC ABG Total CO2 32 (23-27mmol/L) 03/04/19 04:11 POC ABG O2 Sat 97 03/04/19 04:11 ABG O2 Saturation 97.0 % (95.0-99.0) 03/03/19 05:25 ABG O2 Content 11.1 (0.0-44) 03/03/19 05:25 POC ABG Base Excess 4 ((-2) - (+3)mmol/L) 03/04/19 04:11 ABG Base Excess 5.2 mmol/L (-2.0-3.0) H 03/03/19 05:25 ABG Hemoglobin 8.2 gm/dl (12.0-16.0) L 03/03/19 05:25 ABG Carboxyhemoglobin 1.7 % (0.0-5.0) 03/03/19 05:25 ABG Methemoglobin 0.5 % (0.0-1.5) 03/03/19 05:25 Oxyhemoglobin 94.9 % (95.0-99.0) L 03/03/19 05:25 FiO2 100 % 03/04/19 04:11 Sodium 151 mmol/L (137-145) H D 03/04/19 04:38 Potassium 4.5 mmol/L (3.6-5.0) D 03/04/19 04:38 Chloride 110.4 mmol/L (98-107) H 03/04/19 04:38 Carbon Dioxide 26 mmol/L (22-30) 03/04/19 04:38 Anion Gap 19 mmol/L 03/04/19 04:38 BUN 103 mg/dL (7-17) H 03/04/19 04:38 Creatinine 2.0 mg/dL (0.7-1.2) H 03/04/19 04:38 Estimated GFR 32 ml/min 03/04/19 04:38 BUN/Creatinine Ratio 52 % 03/04/19 04:38 Glucose 177 mg/dL (65-100) H 03/04/19 04:38 POC Glucose 226 (70-105) H 03/04/19 12:10 Lactic Acid 2.30 mmol/L (0.7-2.0) H* 02/27/19 18:12 Calcium 8.7 mg/dL (8.4-10.2) 03/04/19 04:38 Phosphorus 3.30 mg/dL (2.5-4.5) D 03/03/19 05:00 Magnesium 2.90 mg/dL (1.7-2.3) H 03/03/19 05:00 Total Bilirubin 0.20 mg/dL (0.1-1.2) 03/04/19 04:38 Direct Bilirubin < 0.2 mg/dL (0-0.2) 02/27/19 11:33 Indirect Bilirubin 0.0 mg/dL 02/27/19 11:33 AST 244 units/L (5-40) H 03/04/19 04:38 ALT 159 units/L (7-56) H 03/04/19 04:38 Alkaline Phosphatase 365 units/L (35-129) H 03/04/19 04:38 Ammonia 52.0 umol/L (25-60) 03/04/19 04:38 Total Creatine Kinase 197 units/L (30-135) H 02/27/19 11:33 CK-MB (CK-2) 4.1 ng/mL (0.0-4.0) H 02/27/19 11:33 CK-MB (CK-2) Rel Index 2.0 (0-4) 02/27/19 11:33 Troponin T 0.027 ng/mL (0.00-0.029) 03/02/19 05:27 NT-Pro-B Natriuret Pep 2143 pg/mL (0-900) H 03/02/19 05:27 Total Protein 5.9 g/dL (6.3-8.2) L 03/04/19 04:38 Albumin 2.1 g/dL (3.9-5) L 03/04/19 04:38 Albumin/Globulin Ratio 0.6 % 03/04/19 04:38 Procalcitonin 2.22 ng/mL (<0.15) 03/02/19 17:00 TSH 0.427 mlU/mL (0.270-4.200) 03/03/19 15:54 Free T4 0.50 ng/dL (0.76-1.46) L 03/03/19 15:54 Urine Color Straw (Yellow) 02/27/19 Unknown Urine Turbidity Clear (Clear) 02/27/19 Unknown Urine pH 5.0 (5.0-7.0) 02/27/19 Unknown Ur Specific [place] 1.009 (1.003-1.030) 02/27/19 Unknown Urine Protein <15 mg/dl mg/dL (Negative) 02/27/19 Unknown Urine Glucose (UA) Neg mg/dL (Negative) 02/27/19 Unknown Urine Ketones Neg mg/dL (Negative) 02/27/19 Unknown Urine Blood Neg (Negative) 02/27/19 Unknown Urine Nitrite Neg (Negative) 02/27/19 Unknown Urine Bilirubin Neg (Negative) 02/27/19 Unknown Urine Urobilinogen < 2.0 mg/dL (<2.0) 02/27/19 Unknown Ur Leukocyte Esterase Neg (Negative) 02/27/19 Unknown Urine WBC (Auto) 3.0 /HPF (0.0-6.0) 02/27/19 Unknown Urine RBC (Auto) 1.0 /HPF (0.0-6.0) 02/27/19 Unknown U Epithel Cells (Auto) 1.0 /HPF (0-13.0) 02/27/19 Unknown Urine Bacteria (Auto) 1+ /HPF (Negative) 02/27/19 Unknown WBC Casts 1 /LPF 02/27/19 Unknown Urine Mucus Few /HPF 02/27/19 Unknown Urine Creatinine 218.2 mg/dL (0.1-20.0) H 03/02/19 Unknown Urine Sodium 16 mmol/L 03/02/19 Unknown Blood Type O POSITIVE 02/27/19 11:45 Antibody Screen Negative 02/27/19 11:45 Crossmatch See Detail 02/27/19 11:45 Active Medications - Current Medications Current Medications: Generic Name Dose Route Start Last Admin Trade Name Freq PRN Reason Stop Dose Admin Acetaminophen 650 mg 03/02/19 13:46 03/02/19 15:38 Tylenol PO 650 mg Q6H PRN Administration Fever >101 Albuterol 2.5 mg 02/27/19 21:08 02/28/19 12:35 Proventil IH 2.5 mg Q4HRT PRN Administration Shortness Of Breath Albuterol/Ipratropium 1 ampul 02/28/19 08:00 03/04/19 08:00 Duoneb *Not For Prn Use* IH 1 ampul TIDRT MANSIH Administration Lipase/Protease/Amylase 1 each 03/03/19 08:54 Pancreaze 10,500 Unit FEEDTUBE PRN PRN For Clogged Feeding Tube Enoxaparin Sodium 30 mg 03/04/19 10:00 03/04/19 09:06 Enoxaparin SUB-Q 30 mg QDAY MANISH Administration Famotidine 20 mg 03/04/19 10:00 03/04/19 09:07 Pepcid IV 20 mg DAILY MANISH Administration Glycopyrrolate 2 mg 03/02/19 20:00 03/04/19 09:00 Robinul PO 2 mg TID MANISH Administration Hydrophilic Ointment 1 applic 03/02/19 04:40 Vaseline Lip Therapy TP Q2HR PRN Dry Lips Norepinephrine 4 mg in 250 mls @ 7.5 mls/hr 03/02/19 05:00 03/04/19 12:37 Levophed Drip 4 Mg/Ns 250 Ml IV 2 mcg/min TITR MANISH 7.5 mls/hr Titration Protocol 2 MCG/MIN Vasopressin 20 unit/ Sodium 101 mls @ 9.09 mls/hr 03/02/19 05:00 03/04/19 06:39 Chloride IV 0.03 units/min TITR MANISH 9.09 mls/hr Administration Protocol 0.03 UNITS/MIN Fentanyl Citrate 2,000 mcg in 100 mls @ 4.64 mls/hr 03/02/19 17:00 03/04/19 12:09 Fentanyl Drip Premix IV 3 mcg/kg/hr TITR MANISH 13.92 mls/hr Administration Protocol 1 MCG/KG/HR Cefepime HCl 1 gm in 100 mls @ 200 mls/hr 03/03/19 14:00 03/04/19 05:59 Cefepime/Ns 1 Gm/100 Ml IV 200 mls/hr Q8HR MANISH Administration Protocol Dextrose/Sodium Chloride 1,000 mls @ 75 mls/hr 03/04/19 10:00 03/04/19 10:03 D5/0.45ns IV 03/04/19 23:19 75 mls/hr DIRECT MANISH Administration Insulin Human Lispro 0 unit 03/04/19 13:00 Humalog SUB-Q Q6HR MANISH Protocol Lactulose 20 gm 03/02/19 10:00 03/04/19 09:06 Cephulac PO 20 gm Q12HR MANISH Administration Methylprednisolone Sodium Succinate 40 mg 02/28/19 14:00 03/04/19 05:58 Solu-Medrol IV 40 mg Q8HR MANISH Administration Multi-Ingred Cream/Lotion/Oil/Oint 1 applic 03/02/19 16:43 Artificial Tears Ophth Oint OU Q4HR PRN Dry Eye(s) Scopolamine 1 each 03/02/19 19:00 03/02/19 18:33 Transderm-Scop TD 1 each Q3D MANISH Administration Simple Syrup 15 ml 03/03/19 08:54 Simple Syrup FEEDTUBE PRN PRN Hypoglycemia Simple Syrup 30 ml 03/03/19 08:54 Simple Syrup FEEDTUBE PRN PRN Hypoglycemia Sodium Bicarbonate 325 mg 03/03/19 08:54 Sodium Bicarbonate FEEDTUBE PRN PRN For Clogged Feeding Tube Nutrition/Malnutrition Assess - Dietary Evaluation Nutrition/Malnutrition Findings: Nutrition Notes Start: 02/28/19 13:21 Freq: Status: Active Protocol: Document 03/04/19 09:54 CC (Rec: 03/04/19 10:18 CC [email or web address]) Co-Sign 03/04/19 09:54 LP Nutrition Notes Initial or Follow up Reassessment Current Diagnosis Acute Kidney Injury,Sepsis, Respiratory Failure Other Pertinent Diagnosis Breast CA stage 4, Pneumonia, SIRS, L breast surgical wound Current Diet Nepro at 40ml/hr Labs/Tests Na 151, K 4.5, Mg 2.9, BUN 103 , Creat 2.0 Pertinent Medications Levophed Vasopressin Solumedrol Height 5 ft 2 in Weight 94.8 kg [place] Body Weight (kg) 50.00 BMI 38.2 Subjective/Other Information TF Nepro running at goal rate of 40ml/hr. Hypernatremia improved but not resoved continue flush of 250ml q4hr, once resolved flush 150ml q4hr Percent of energy/protein needs met: 100%/78% Burn Absent Trauma Absent Minimum of two criteria No physical signs of malnutrition #2 Nutrition Diagnosis Inadequate oral intake Diagnosis Progress(for reassessment Continues documentation) #1 Nutrition Diagnosis Inadequate energy intake Diagnosis Progress(for reassessment Resolved documentation) Is patient on ventilator? Yes Is Patient Ambulatory and/or Out of Bed No REE-([place]-[facility]. Jeor-confined to bed) 1823.256 Kcal/Kg value to use for calculation 16 Approximate Energy Requirements Using 1517 kcal/Kg Calculation Used for Recommendations Kcal/kg Additional Notes PRO needs: 100g (2g/kg IBW 50 kg) Fluid needs: 1ml/kcal or per MD Nutrition Intervention Change Diet Order: continue TF Nutrition Support: Nepro at 40 ml/hr Flush 250 mls q4hr until hypernatremia resolves Flush 150 mls q4hr once hypernatremia resolves Kcal 1,728 Protein (gm) 78 Fluid (mL) 698 Goal #1 Continue to meet at least 75% of energy and protein needs via TF Goal #2 TF tolerance Anticipated Discharge Needs: Unable to determine at this time Follow-Up By: 03/06/19 Additional Comments F/U for TF tolerance, Na labs
--- NOTE | 2019-03-04 13:02 | Progress Note ---
Assessment and Plan Cultures: Blood culture 02/27/19 no growth to date Urine culture 02/27/19 no growth to date Throacentesis culture 02/28/19 - no growth, no orgs on gram stain. Assessment: 49 yo F PMHx metastatic breast cancer admitted with worsening shortness of breath. 1. Acute sepsis with shock - with tachycardia and leukocytosis. Likely secondary to pneumonia. Breast wound looks clean. 2. B/L Pneumonia - difficult to tell with imaging. S/P thoracentesis, no growth on culture. 3. Large breast wound - no obvious purulence and family denies any issues with the wound at this time. Obvious risk for infection, but at present appears stable. 4. Metastatic breast cancer 5. SELAM: Creatinine worsening. Renally adjust abx. 6. Worsening LFTs and alkaline phosphatase, bilirubin normal. Recs: Creatinine continues to rise. WBC also higher and remains on 2 pressors. Will sw itch Cefepime to Meropenem, renally adjusted Overall extremely poor prognosis Sebastien Perkins MD, FACP [facility] ([facility]) M: [phone] O: [phone] F: [phone] Subjective Date of service: 03/04/19 Principal diagnosis: Ac. hypoxemic resp failure; Sev Sepsis; R. pleural effusion; Met. breast CA Interval history: Low grade fevers continue. Remains intubated. Still on 2 pressors: levophed and vasopressin. Sedated. Objective - Exam Narrative Exam: Physical Exam: Constitutional: sedated, intubated Head, Ears, Nose: Normocephalic, atraumatic. External ears, nose normal Eyes: Conjunctivae/corneas clear. No icterus. No ptosis. Neck: intubated Oral: intubated Cardiovascular: S1, S2 normal. Respiratory: Good air entry, clear to auscultation bilaterally GI: Soft, non-tender; bowel sounds normal. No peritoneal signs Musculoskeletal: No pedal edema, no cyanosis. Skin: large left breast wound + Hem/Lymphatic: No palpable cervical or supraclavicular nodes. No lymphangitis Psych: sedated Neurological: sedated, intubated, on vent - Constitutional Vitals: Vital Signs Temp Pulse Resp BP Pulse Ox 100.2 F H 115 H 25 H 87/60 94 03/04/19 08:00 11/12/19 12:15 03/04/19 12:15 03/04/19 12:15 03/04/19 12:15 Temperature -Last 24 Hours Temperature 100.2 F Temperature 100 F Temperature 98.8 F Temperature 97.4 F Temperature 99 F - Labs CBC & Chem 7: 03/04/19 04:38 03/04/19 04:38 Labs: Abnormal lab results 03/03/19 03/03/19 03/03/19 Range/Units 12:27 15:54 17:32 WBC (4.5-11.0) K/mm3 RBC (3.65-5.03) M/mm3 Hgb (10.1-14.3) gm/dl Hct (30.3-42.9) % MCH (28-32) pg RDW (13.2-15.2) % Seg Neuts % (Manual) (40.0-70.0) % Lymphocytes % (Manual) (13.4-35.0) % Seg Neutrophils # Man (1.8-7.7) K/mm3 Lymphocytes # (Manual) (1.2-5.4) K/mm3 POC ABG pH (7.35-7.45) POC ABG pCO2 (35-45) Sodium (137-145) mmol/L Chloride (98-107) mmol/L BUN (7-17) mg/dL Creatinine (0.7-1.2) mg/dL Glucose (65-100) mg/dL POC Glucose 167 H 165 H (70-105) AST (5-40) units/L ALT (7-56) units/L Alkaline Phosphatase (35-129) units/L Total Protein (6.3-8.2) g/dL Albumin (3.9-5) g/dL Free T4 0.50 L (0.76-1.46) ng/dL 03/03/19 03/04/19 03/04/19 Range/Units 23:57 04:11 04:38 WBC 23.0 H (4.5-11.0) K/mm3 RBC 3.36 L (3.65-5.03) M/mm3 Hgb 7.9 L (10.1-14.3) gm/dl Hct 26.6 L (30.3-42.9) % MCH 24 L (28-32) pg RDW 23.1 H (13.2-15.2) % Seg Neuts % (Manual) 98.0 H (40.0-70.0) % Lymphocytes % (Manual) 0 L (13.4-35.0) % Seg Neutrophils # Man 22.5 H (1.8-7.7) K/mm3 Lymphocytes # (Manual) 0.0 L (1.2-5.4) K/mm3 POC ABG pH 7.332 L (7.35-7.45) POC ABG pCO2 57.1 H (35-45) Sodium (137-145) mmol/L Chloride (98-107) mmol/L BUN (7-17) mg/dL Creatinine (0.7-1.2) mg/dL Glucose (65-100) mg/dL POC Glucose 202 H (70-105) AST (5-40) units/L ALT (7-56) units/L Alkaline Phosphatase (35-129) units/L Total Protein (6.3-8.2) g/dL Albumin (3.9-5) g/dL Free T4 (0.76-1.46) ng/dL 03/04/19 03/04/19 03/04/19 Range/Units 04:38 05:30 12:10 WBC (4.5-11.0) K/mm3 RBC (3.65-5.03) M/mm3 Hgb (10.1-14.3) gm/dl Hct (30.3-42.9) % MCH (28-32) pg RDW (13.2-15.2) % Seg Neuts % (Manual) (40.0-70.0) % Lymphocytes % (Manual) (13.4-35.0) % Seg Neutrophils # Man (1.8-7.7) K/mm3 Lymphocytes # (Manual) (1.2-5.4) K/mm3 POC ABG pH (7.35-7.45) POC ABG pCO2 (35-45) Sodium 151 H D (137-145) mmol/L Chloride 110.4 H (98-107) mmol/L BUN 103 H (7-17) mg/dL Creatinine 2.0 H (0.7-1.2) mg/dL Glucose 177 H (65-100) mg/dL POC Glucose 172 H 226 H (70-105) AST 244 H (5-40) units/L ALT 159 H (7-56) units/L Alkaline Phosphatase 365 H (35-129) units/L Total Protein 5.9 L (6.3-8.2) g/dL Albumin 2.1 L (3.9-5) g/dL Free T4 (0.76-1.46) ng/dL - Imaging and cardiology Chest x-ray: report reviewed, image reviewed (diffuse bilateral airspace disease)
[2019-03-04] MEDS: INSULIN LISPRO 100 UNIT/ML SUB-Q SCH ×2 (13:39→18:15)
[2019-03-04 14:29] LABS: Bacteria,Urine 1+ /HPF (Negative); Bilirubin,Urine NEG (Negative); Blood,Urine MOD (Negative); Color,Urine Amber (Yellow); Mucus,Urine FEW /HPF; Urobilinogen,Urine < 2.0 mg/dL (<2.0)
[2019-03-04 14:34] LABS: Chloride, Urine 10.2 mmolL (110-250); Creatinine,Urine 185.9 mg/dL (0.1-20.0)
[2019-03-04] MEDS: MEROPENEM/NS 1 GRAM/100 ML 1 GRAM/100 ML BAG IV SCH ×2 (15:00→21:18)
[2019-03-05] MEDS: fentaNYL DRIP Premix 2,000 MCG/100 ML BAG IV SCH ×2 (02:24→12:16)
--- NOTE | 2019-03-05 03:51 | XRay Report ---
CHEST 1 VIEW INDICATION / CLINICAL INFORMATION: follow up respiratory failure. COMPARISON: 03/04/2019 FINDINGS: SUPPORT DEVICES: Tubes and lines remain in stable and satisfactory position. HEART / MEDIASTINUM: No significant abnormality. LUNGS / PLEURA: Diffuse bilateral pulmonary opacities are grossly stable.. No pneumothorax. ADDITIONAL FINDINGS: No significant additional findings. IMPRESSION: 1. Stable appearance of the chest radiograph. Signer Name: Alysa Castro MD Signed: 03/05/2019 3:47 AM Workstation Name: [id number]
[2019-03-05 05:14] LABS: Hemoglobin 7.5 gm/dl (10.1-14.3); Mean Corpuscular HGB Conc 30 % (30-34); Mean Corpuscular Volume 81 fl (79-97); Platelet Count 260 K/mm3 (140-440); Red Blood Count 3.08 M/mm3 (3.65-5.03)
[2019-03-05] MEDS: VASOPRESSIN 20 UNIT in SODIUM CHLORIDE 0.9% 100 ML IV SCH (05:30)
[2019-03-05] MEDS: methylPREDNISolone Sod Succinate 125 MG/2 ML INJ IV SCH (05:31)
[2019-03-05 05:39] LABS: Albumin 2.2 g/dL (3.9-5)
[2019-03-05] MEDS: INSULIN LISPRO 100 UNIT/ML SUB-Q SCH ×4 (05:59→18:26)
[2019-03-05 06:24] LABS: Anisocytosis 1+; Basophils % (Manual) 0 % (0.0-1.8); Eosinophils % (Manual) 0 % (0.0-4.3); Total Cells Counted 100
[2019-03-05 06:25] LABS: Platelet Estimate Consistent w Auto
[2019-03-05] MEDS: GLYCOPYRROLATE 1 MG TAB PO SCH (08:19)
[2019-03-05] MEDS: IPRATROPIUM/ALBUTEROL SULFATE 3 ML AMPUL.NEB IH SCH ×3 (08:54→20:11)
--- NOTE | 2019-03-05 09:14 | Consultation ---
History of Present Illness - Reason for Consult Consult date: 03/05/19 acute renal failure - History of Present Illness 49 y/o AAF with past medical Hx significant for metastatic breast cancer, admitted initially for worsening shortness of breath, with chest xray concerning for worsening b/l pulmonary opacities indicative of pneumonia, whose current hospital course has been complicated by worsening sepsis and acute on chronic respiratory failure requiring intubation and pressor support. In this setting patient has suffered an SELAM for which nephrology is being consulted at this time. Past History Past Medical History: cancer, hypertension Past Surgical History: Other (Mastectomy) Social history: no significant social history Family history: hypertension Medications and Allergies Allergies Allergy/AdvReac Type Severity Reaction Status Date / Time aspirin AdvReac GI Upset Verified 01/28/19 12:25 Home Medications Medication Instructions Recorded Confirmed Last Taken Type amLODIPine 5 mg PO DAILY 01/27/19 02/27/19 02/15/19 10:00 History Albuterol Sulfate [Proventil Hfa] 6.7 gm IH Q6H PRN #1 can 02/11/19 02/27/19 02/15/19 15:00 Rx Clindamycin [Clindamycin CAP] 300 mg PO Q8H #21 cap 02/11/19 02/27/19 02/15/19 10:00 Rx oxyCODONE [roxiCODONE] 10 mg PO Q6HR PRN 02/15/19 02/27/19 Unknown History Budesonide/Formoterol Fumarate 2 puff IH BID #1 hfa.aer.ad 02/19/19 02/27/19 Unknown Rx [Symbicort 160-4.5 Mcg Inhaler] HYDROcodone/APAP 10-325 [[place] 1 each PO Q6HR PRN #30 tablet 02/19/19 02/27/19 Unknown Rx 10/325] cephALEXin [Keflex] 500 mg PO Q6HR #40 capsule 02/19/19 02/27/19 Unknown Rx Active Meds: Active Medications Acetaminophen (Tylenol) 650 mg PO Q6H PRN PRN Reason: Fever >101 Last Admin: 03/02/19 15:38 Dose: 650 mg Documented by: Albuterol (Proventil) 2.5 mg IH Q4HRT PRN PRN Reason: Shortness Of Breath Last Admin: 02/28/19 12:35 Dose: 2.5 mg Documented by: Albuterol/Ipratropium (Duoneb *Not For Prn Use*) [address] [facility] Last Admin: 03/05/19 08:54 Dose: 1 ampul Documented by: Lipase/Protease/Amylase (Kaley Zamora 10,500 Unit) 1 each FEEDTUBE PRN PRN PRN Reason: For Clogged Feeding Tube Enoxaparin Sodium (Enoxaparin) 30 mg SUB-Q QDAY [facility] Last Admin: 03/04/19 09:06 Dose: 30 mg Documented by: Famotidine (Pepcid) [address] [facility] Last Admin: 03/04/19 09:07 Dose: 20 mg Documented by: Glycopyrrolate (Robinul) [address] [facility] Last Admin: 03/05/19 08:19 Dose: 2 mg Documented by: Hydrophilic Ointment (Vaseline Lip Therapy) 1 applic TP Q2HR PRN PRN Reason: Dry Lips Norepinephrine (Levophed Drip 4 Mg/Ns 250 Ml) 4 mg in 250 mls @ 7.5 mls/hr IV TITR [facility]; Protocol Last Titration: 03/04/19 14:46 Dose: 0 mcg/min, 0 mls/hr Documented by: Vasopressin 20 unit/ Sodium (Chloride) 101 mls @ 9.09 mls/hr IV TITR [facility]; Protocol Last Admin: 03/05/19 05:30 Dose: 0.03 units/min, 9.09 mls/hr Documented by: Fentanyl Citrate (Fentanyl Drip Premix) 2,000 mcg in 100 mls @ 4.64 mls/hr IV TITR [facility]; Protocol Last Admin: 03/05/19 02:24 Dose: 3 mcg/kg/hr, 13.92 mls/hr Documented by: MEROPENEM/NS 1 GRAM/100 ML (Merrem/Ns 1 Gram/100 Ml) 1 gram in 100 mls @ 100 mls/hr IV Q12HR [facility]; Protocol Last Admin: 03/04/19 21:18 Dose: 100 mls/hr Documented by: Insulin Human Lispro (Humalog) 0 unit SUB-Q Q6HR [facility]; Protocol Last Admin: 03/05/19 05:59 Dose: Not Given Documented by: Lactulose (Cephulac) [address] [facility] Last Admin: 03/04/19 21:18 Dose: 20 gm Documented by: Methylprednisolone Sodium Succinate (Solu-Medrol) [address] [facility] Last Admin: 03/05/19 05:31 Dose: 40 mg Documented by: Multi-Ingred Cream/Lotion/Oil/Oint (Artificial Tears Ophth Oint) 1 applic OU Q4HR PRN PRN Reason: Dry Eye(s) Scopolamine (Transderm-Scop) [address] [facility] Last Admin: 03/02/19 18:33 Dose: 1 each Documented by: Simple Syrup (Simple Syrup) 15 ml FEEDTUBE PRN PRN PRN Reason: Hypoglycemia Simple Syrup (Simple Syrup) 30 ml FEEDTUBE PRN PRN PRN Reason: Hypoglycemia Sodium Bicarbonate (Sodium Bicarbonate) 325 mg FEEDTUBE PRN PRN PRN Reason: For Clogged Feeding Tube Review of Systems ROS unobtainable: due to endotracheal tube, due to mental status Exam - Vital Signs Vital signs: Vital Signs Pulse Ox 100 02/27/19 11:04 - General Appearance General appearance: appears stated age, chronically ill, frail EENT: ATNC, PERRL Neck: Present: neck supple, trachea midline Respiratory: Ronchi Heart: regular, S1S2 Gastrointestinal: Present: normal Integumentary: warm and dry Neurologic: other (opens eyes with painful stimulation, otherwise is not following commands. ) Musculoskeletal: Present: deferred Results - Lab Results 03/05/19 04:28 03/05/19 04:28 Most recent lab results ABG pH 7.335 pH Units (7.350-7.450) L 03/03/19 05:25 ABG pCO2 61.3 mm Hg 03/03/19 05:25 ABG pO2 89.2 mm Hg (80.0-90.0) 03/03/19 05:25 ABG HCO3 32.0 mmol/L (20.0-26.0) H 03/03/19 05:25 ABG O2 Saturation 97.0 % (95.0-99.0) 03/03/19 05:25 Calcium 9.0 mg/dL (8.4-10.2) 03/05/19 04:28 Phosphorus 3.30 mg/dL (2.5-4.5) D 03/03/19 05:00 Magnesium 2.90 mg/dL (1.7-2.3) H 03/03/19 05:00 Urine Creatinine 185.9 mg/dL (0.1-20.0) H 03/04/19 12:39 Urine Sodium 13 mmol/L 03/04/19 12:39 Assessment and Plan - Patient Problems (1) SELAM (acute kidney injury) Current Visit: Yes Status: Acute Plan to address problem: Likely due to severe pre-renal injury/ATN in the setting of sepsis. Continue current management. Maintain adequate hemodynamic parameters, pressor support to maintain HgB >7.0. Avoid nephrotoxins. Patient has an overall poor prognosis considering her other underlying comorbidities, especially metastatic breast cancer, and would not be an ideal candidate for renal replacement initiation. Per review of primary note, plan to contact hospice services. UA and urine electrolytes reviewed at this time. Will add complement levels and ANCA panel to current workup to r/o possible GN etiologies for renal insufficiency, but likely this is ATN. (2) Acute respiratory failure Current Visit: Yes Status: Acute Qualifiers: Respiratory failure complication: hypoxia Qualified Code(s): J96.01 - Acute respiratory failure with hypoxia Plan to address problem: Intubated at this time. Vent management per pulmonary Mild response with lasix regimen. (3) Anemia Current Visit: Yes Status: Acute Qualifiers: Anemia type: unspecified type Qualified Code(s): D64.9 - Anemia, unspecified Plan to address problem: Transfuse to maintain Hgb>7.0. (4) Hypernatremia Current Visit: Yes Status: Acute Plan to address problem: Improving at this time. Will continue to closely monitor. (5) Sepsis Current Visit: Yes Status: Acute Qualifiers: Sepsis type: sepsis due to unspecified organism Sepsis acute organ dysfunction status: unspecified Qualified Code(s): A41.9 - Sepsis, unspecified organism Plan to address problem: Continue on antibiotics, that needs to be dosed for decreased renal function. (6) Pneumonia Current Visit: Yes Status: Suspected Qualifiers: Pneumonia type: due to unspecified organism Laterality: bilateral Lung location: unspecified part of lung Qualified Code(s): J18.9 - Pneumonia, unspecified organism Plan to address problem: Infectious disease consult noted, antibiotics dosed per current renal parameters/renal function. Cultures noted, NGTD.
--- NOTE | 2019-03-05 09:35 | Progress Note ---
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 Transaminitis Metastatic breast cancer Hypernatremia Poor medical compliance Obesity Continue steroids for now, with taper- it possible there is an element of re- expansion pulmonary edema post thoracentesis Hepatic function is improving, avoid hepatotoxic agents Hypernatremia is improving, continue free water flushes and hypotonic solutions( D5-1/2Nsaline) Avoid nephrotoxins and adjust all medications fro GFR and CrCL Disucsed with renal, he states at this time with poor prognosis will hold off on [place] as a therapeutic option On Cefepime per ID recommendation, de-escalate as indicated CBC, BMP in am - Wean vasopressor support for MAP>65, currently on norepinephrine and vasopressin -Volume resuscitation per sepsis protocol -VAP bundle addressed -Aspiration precautions, HOB>40 degrees - Lung protective strategies -Adjust minute ventilation for better acid-base balance -CXR, ABG in am -Assess daily for readiness for weaningSAT, SBT as tolerated -Continue small bowel feeding tube for nutritional support -VTE prophylaxis -Stress ulcer prophylaxis - Accuchecks with glycemic control for SSI (While critically ill target blood glucose of 140-180 mg/dL; avoid hypoglycemia) - mobility protocol for pressure ulcer prevention - Monitor hemodynamics closely -Monitor electrolyte profile closely and replete as indicated -Chronic home medications, resume as clinically indicated -Mercado catheter in this critically ill patient, with poor urine output, requiring accurate intake and output monitoring and acute renal failure with worsening indices -Wound care CONDITION: CRITICAL PROGNOSIS: GUARDED-POOR CODE STATUS: FULL CODE The high probability of a clinically significant, sudden or life-threatening deterioration of the [respiratory, cardiovascular, renal, hepatobiliary] system(s) required my full and direct attention, intervention and personal manag ement. The aggregate critical care time was [35] minutes without overlap. Time includes spent on; [x] Data Review and interpretation [x] Patient assessment and monitoring of vital signs [x] Documentation [x] Medication orders and management Subjective Date of service: 03/05/19 Principal diagnosis: Ac. hypoxemic resp failure; Sev Sepsis; R. pleural effusion; Met. breast CA Interval history: Patient is seen today for: Acute hypoxemic-hypercapnic respiratory failure; severe Sepsis with septic shock,HAP; ARDS; Right pleural effusion s/p thoracentesis; Metastatic breast cancer; Hypernatremia; Poor medical compliance; Obesity Seen and examined at bedside; 24hour events reviewed; nursing and respiratory care staff consulted; overnight events discussed; Remains critically ill on mechanical ventilatory support; on vasopressor support; on fentanyl at 3mcg, on SAT was restless but not purposeful; LIJ to CVP, worsening renal function Remains on norepinephrine at 6mcg and fixed dose vasopressin. Low grade fevers this morning. Cultures as negative so far On MVS AC-VC 25/450/10/80% ABG 7.33/57/101/30- high airway pressures. Sedated Objective Vital Signs - 12hr 03/04/19 03/04/19 03/04/19 21:45 22:00 22:15 Temperature Pulse Rate 110 H 110 H 108 H Pulse Rate [ From Monitor] Respiratory 25 H 25 H 25 H Rate Blood Pressure 97/45 90/47 91/49 O2 Sat by Pulse 97 97 98 Oximetry 03/04/19 03/04/19 03/04/19 22:30 22:45 23:00 Temperature Pulse Rate 109 H 109 H 108 H Pulse Rate [ From Monitor] Respiratory 25 H 25 H 25 H Rate Blood Pressure 98/50 104/54 96/52 O2 Sat by Pulse 98 98 98 Oximetry 03/04/19 03/04/19 03/04/19 23:15 23:30 23:45 Temperature Pulse Rate 107 H 106 H 106 H Pulse Rate [ From Monitor] Respiratory 17 25 H 25 H Rate Blood Pressure 94/45 87/51 90/50 O2 Sat by Pulse 97 98 98 Oximetry 03/05/19 03/05/19 03/05/19 00:00 00:10 00:15 Temperature 98.9 F Pulse Rate 105 H 104 H 105 H Pulse Rate [ 110 H From Monitor] Respiratory 25 H 25 H Rate Blood Pressure 98/49 100/54 100/54 O2 Sat by Pulse 98 98 98 Oximetry 03/05/19 03/05/19 03/05/19 00:30 00:45 01:00 Temperature Pulse Rate 104 H 103 H 103 H Pulse Rate [ From Monitor] Respiratory 25 H 25 H 25 H Rate Blood Pressure 98/52 96/53 95/53 O2 Sat by Pulse 98 98 98 Oximetry 03/05/19 03/05/19 03/05/19 01:15 01:30 01:45 Temperature Pulse Rate 102 H 102 H 101 H Pulse Rate [ From Monitor] Respiratory 25 H 20 25 H Rate Blood Pressure 89/49 87/51 87/51 O2 Sat by Pulse 98 98 98 Oximetry 03/05/19 03/05/19 03/05/19 02:00 02:15 02:30 Temperature Pulse Rate 100 H 100 H 100 H Pulse Rate [ From Monitor] Respiratory 25 H 25 H 25 H Rate Blood Pressure 92/51 88/49 94/50 O2 Sat by Pulse 98 98 98 Oximetry 03/05/19 03/05/19 03/05/19 02:45 03:00 03:16 Temperature Pulse Rate 101 H 100 H 105 H Pulse Rate [ From Monitor] Respiratory 25 H 25 H 20 Rate Blood Pressure 97/52 86/47 92/60 O2 Sat by Pulse 98 98 94 Oximetry 03/05/19 03/05/19 03/05/19 03:30 03:45 04:00 Temperature 98.7 F Pulse Rate 103 H 101 H 102 H Pulse Rate [ 102 H From Monitor] Respiratory 24 21 25 H Rate Blood Pressure 98/58 102/56 99/52 O2 Sat by Pulse 97 98 98 Oximetry 03/05/19 03/05/19 03/05/19 04:15 04:30 04:36 Temperature Pulse Rate 100 H 99 H 99 H Pulse Rate [ From Monitor] Respiratory 25 H 24 Rate Blood Pressure 97/56 98/62 97/52 O2 Sat by Pulse 97 97 98 Oximetry 03/05/19 03/05/19 03/05/19 04:45 05:00 05:15 Temperature Pulse Rate 99 H 99 H 98 H Pulse Rate [ From Monitor] Respiratory 8 L 10 L 12 Rate Blood Pressure 99/60 95/62 105/65 O2 Sat by Pulse 97 97 97 Oximetry 03/05/19 03/05/19 03/05/19 05:30 05:46 06:00 Temperature Pulse Rate 97 H 100 H 100 H Pulse Rate [ From Monitor] Respiratory 8 L 13 16 Rate Blood Pressure 95/63 99/63 99/67 O2 Sat by Pulse 96 96 96 Oximetry 03/05/19 03/05/19 03/05/19 06:15 06:30 06:45 Temperature Pulse Rate 99 H 97 H 96 H Pulse Rate [ From Monitor] Respiratory 18 18 11 L Rate Blood Pressure 100/68 100/63 103/65 O2 Sat by Pulse 96 95 95 Oximetry 03/05/19 03/05/19 03/05/19 07:00 07:15 07:30 Temperature Pulse Rate 97 H 99 H 96 H Pulse Rate [ From Monitor] Respiratory 14 25 H 25 H Rate Blood Pressure 100/64 98/65 97/64 O2 Sat by Pulse 96 96 97 Oximetry 03/05/19 03/05/19 03/05/19 07:45 07:56 08:00 Temperature 98.1 F Pulse Rate 96 H 96 H Pulse Rate [ 102 H From Monitor] Respiratory 25 H 25 H Rate Blood Pressure 97/67 100/64 O2 Sat by Pulse 97 97 Oximetry 03/05/19 03/05/19 03/05/19 08:15 08:30 08:45 Temperature Pulse Rate 90 96 H 98 H Pulse Rate [ From Monitor] Respiratory 24 25 H 25 H Rate Blood Pressure 100/64 104/65 106/65 O2 Sat by Pulse 97 95 96 Oximetry 03/05/19 03/05/19 08:57 09:00 Temperature Pulse Rate 99 H 98 H Pulse Rate [ From Monitor] Respiratory 19 Rate Blood Pressure 106/65 100/67 O2 Sat by Pulse 95 95 Oximetry Constitutional: lethargic, other (middle aged obese AAF with mildly increased respiratory distress on MVS) Eyes: icteric ENT: other (Small bowel feeding tube in place, 7.[address] 23cm at the lip) Neck: supple, no lymphadenopathy, no JVD, other (Left IJ CVC; large neck circumference) Effort: mildly labored Ascultation: Bilateral: diminished breath sounds, rales Percussion: Bilateral: not dull Cardiovascular: regular rate and rhythm, other (Tachycardia S1,S2, no murmurs. Anterior chest wall dressing) Gastrointestinal: normoactive bowel sounds, soft, non-tender, non-distended Integumentary: other (Chest wall wound) Extremities: no cyanosis, pulses normal, no ischemia or petechiae, edema, other (edema) Neurologic: pupils equal and round, other (sedated, unable to assess) Psychiatric: other (unable to assess re: AMS) CBC and BMP: 03/06/19 04:55 03/06/19 04:55 ABG, PT/INR, D-dimer: ABG POC ABG pH 7.274 (7.35-7.45) L 03/05/19 04:16 ABG pH 7.335 pH Units (7.350-7.450) L 03/03/19 05:25 POC ABG pCO2 59.7 (35-45) H 03/05/19 04:16 ABG pCO2 61.3 mm Hg 03/03/19 05:25 POC ABG pO2 107 (80-105) H 03/05/19 04:16 ABG pO2 89.2 mm Hg (80.0-90.0) 03/03/19 05:25 POC ABG HCO3 27.7 (22-26 mml/L) 03/05/19 04:16 POC ABG Total CO2 29 (23-27mmol/L) 03/05/19 04:16 POC ABG O2 Sat 97 03/05/19 04:16 ABG O2 Saturation 97.0 % (95.0-99.0) 03/03/19 05:25 PT/INR, D-dimer PT 14.8 Sec. (12.2-14.9) 02/27/19 12:38 INR 1.17 (0.87-1.13) H 02/27/19 12:38 D-Dimer 5778.32 ng/mlDDU (0-234) H 02/27/19 12:38 Abnormal lab findings: Abnormal Labs 02/27/19 02/27/19 02/27/19 11:33 11:33 11:33 WBC 18.6 H RBC 3.60 L Hgb 8.7 L Hct 28.8 L MCH 24 L MCHC RDW 23.0 H Plt Count 507 H Lymph % (Auto) 12.9 L [place] # 1.3 H Seg Neutrophils % 79.7 H Seg Neuts % (Manual) Lymphocytes % (Manual) Nucleated RBC % Seg Neutrophils # 14.8 H Seg Neutrophils # Man Lymphocytes # (Manual) INR D-Dimer POC ABG pH ABG pH POC ABG pCO2 POC ABG pO2 ABG pO2 ABG HCO3 ABG O2 Saturation ABG Base Excess ABG Hemoglobin Oxyhemoglobin Sodium Potassium Chloride 96.8 L Carbon Dioxide BUN 28 H Creatinine 0.5 L Glucose 169 H POC Glucose Lactic Acid 3.40 H* Phosphorus Magnesium AST ALT Alkaline Phosphatase Ammonia Total Creatine Kinase 197 H CK-MB (CK-2) 4.1 H NT-Pro-B Natriuret Pep Total Protein Albumin Free T4 Urine Creatinine Urine Chloride Crossmatch 02/27/19 02/27/19 02/27/19 11:33 11:45 11:47 WBC RBC Hgb Hct MCH MCHC RDW Plt Count Lymph % (Auto) [place] # Seg Neutrophils % Seg Neuts % (Manual) Lymphocytes % (Manual) Nucleated RBC % Seg Neutrophils # Seg Neutrophils # Man Lymphocytes # (Manual) INR D-Dimer POC ABG pH ABG pH POC ABG pCO2 POC ABG pO2 ABG pO2 ABG HCO3 ABG O2 Saturation ABG Base Excess ABG Hemoglobin Oxyhemoglobin Sodium Potassium Chloride Carbon Dioxide BUN Creatinine Glucose POC Glucose 169 H Lactic Acid Phosphorus Magnesium AST 95 H ALT Alkaline Phosphatase 130 H Ammonia Total Creatine Kinase CK-MB (CK-2) NT-Pro-B Natriuret Pep Total Protein Albumin 2.9 L Free T4 Urine Creatinine Urine Chloride Crossmatch See Detail 02/27/19 02/27/19 02/27/19 12:30 12:38 14:08 WBC RBC Hgb Hct MCH MCHC RDW Plt Count Lymph % (Auto) [place] # Seg Neutrophils % Seg Neuts % (Manual) Lymphocytes % (Manual) Nucleated RBC % Seg Neutrophils # Seg Neutrophils # Man Lymphocytes # (Manual) INR 1.17 H D-Dimer 5778.32 H POC ABG pH 7.326 L ABG pH POC ABG pCO2 POC ABG pO2 129 H ABG pO2 ABG HCO3 ABG O2 Saturation ABG Base Excess ABG Hemoglobin Oxyhemoglobin Sodium Potassium Chloride Carbon Dioxide BUN Creatinine Glucose POC Glucose Lactic Acid 3.00 H* Phosphorus Magnesium AST ALT Alkaline Phosphatase Ammonia Total Creatine Kinase CK-MB (CK-2) NT-Pro-B Natriuret Pep Total Protein Albumin Free T4 Urine Creatinine Urine Chloride Crossmatch 02/27/19 02/27/19 02/27/19 15:03 16:06 18:08 WBC RBC Hgb Hct MCH MCHC RDW Plt Count Lymph % (Auto) [place] # Seg Neutrophils % Seg Neuts % (Manual) Lymphocytes % (Manual) Nucleated RBC % Seg Neutrophils # Seg Neutrophils # Man Lymphocytes # (Manual) INR D-Dimer POC ABG pH ABG pH POC ABG pCO2 68.8 H POC ABG pO2 225 H ABG pO2 ABG HCO3 ABG O2 Saturation ABG Base Excess ABG Hemoglobin Oxyhemoglobin Sodium Potassium Chloride Carbon Dioxide BUN Creatinine Glucose POC Glucose Lactic Acid 3.20 H* 2.80 H* Phosphorus Magnesium AST ALT Alkaline Phosphatase Ammonia Total Creatine Kinase CK-MB (CK-2) NT-Pro-B Natriuret Pep Total Protein Albumin Free T4 Urine Creatinine Urine Chloride Crossmatch 02/27/19 02/28/19 02/28/19 18:12 10:00 10:00 WBC 13.3 H RBC 3.39 L Hgb 8.1 L Hct 26.7 L MCH 24 L MCHC RDW 22.5 H Plt Count Lymph % (Auto) [place] # Seg Neutrophils % Seg Neuts % (Manual) Lymphocytes % (Manual) Nucleated RBC % Seg Neutrophils # Seg Neutrophils # Man Lymphocytes # (Manual) INR D-Dimer POC ABG pH ABG pH POC ABG pCO2 POC ABG pO2 ABG pO2 ABG HCO3 ABG O2 Saturation ABG Base Excess ABG Hemoglobin Oxyhemoglobin Sodium 146 H Potassium Chloride Carbon Dioxide 32 H BUN 32 H Creatinine 0.5 L Glucose 111 H POC Glucose Lactic Acid 2.30 H* Phosphorus Magnesium AST 93 H ALT Alkaline Phosphatase Ammonia Total Creatine Kinase CK-MB (CK-2) NT-Pro-B Natriuret Pep Total Protein Albumin 2.6 L Free T4 Urine Creatinine Urine Chloride Crossmatch 02/28/19 03/01/19 03/01/19 10:26 00:05 05:00 WBC 20.2 H RBC Hgb 9.0 L Hct 29.9 L MCH 24 L MCHC RDW 22.8 H Plt Count 498 H Lymph % (Auto) [place] # Seg Neutrophils % Seg Neuts % (Manual) Lymphocytes % (Manual) Nucleated RBC % Seg Neutrophils # Seg Neutrophils # Man Lymphocytes # (Manual) INR D-Dimer POC ABG pH ABG pH POC ABG pCO2 54.2 H POC ABG pO2 ABG pO2 ABG HCO3 ABG O2 Saturation ABG Base Excess ABG Hemoglobin Oxyhemoglobin Sodium Potassium Chloride Carbon Dioxide BUN Creatinine Glucose POC Glucose 167 H Lactic Acid Phosphorus Magnesium AST ALT Alkaline Phosphatase Ammonia Total Creatine Kinase CK-MB (CK-2) NT-Pro-B Natriuret Pep Total Protein Albumin Free T4 Urine Creatinine Urine Chloride Crossmatch 03/01/19 03/01/19 03/01/19 05:00 12:36 17:31 WBC RBC Hgb Hct MCH MCHC RDW Plt Count Lymph % (Auto) [place] # Seg Neutrophils % Seg Neuts % (Manual) Lymphocytes % (Manual) Nucleated RBC % Seg Neutrophils # Seg Neutrophils # Man Lymphocytes # (Manual) INR D-Dimer POC ABG pH ABG pH POC ABG pCO2 POC ABG pO2 ABG pO2 ABG HCO3 ABG O2 Saturation ABG Base Excess ABG Hemoglobin Oxyhemoglobin Sodium 148 H Potassium Chloride Carbon Dioxide 37 H BUN 43 H Creatinine 0.6 L Glucose 150 H POC Glucose 140 H 157 H Lactic Acid Phosphorus Magnesium AST ALT Alkaline Phosphatase Ammonia Total Creatine Kinase CK-MB (CK-2) NT-Pro-B Natriuret Pep Total Protein Albumin Free T4 Urine Creatinine Urine Chloride Crossmatch 03/02/19 03/02/19 03/02/19 04:29 04:32 05:27 WBC RBC Hgb Hct MCH MCHC RDW Plt Count Lymph % (Auto) [place] # Seg Neutrophils % Seg Neuts % (Manual) Lymphocytes % (Manual) Nucleated RBC % Seg Neutrophils # Seg Neutrophils # Man Lymphocytes # (Manual) INR D-Dimer POC ABG pH 7.056 L ABG pH POC ABG pCO2 POC ABG pO2 64 L ABG pO2 ABG HCO3 ABG O2 Saturation ABG Base Excess ABG Hemoglobin Oxyhemoglobin Sodium Potassium Chloride Carbon Dioxide BUN Creatinine Glucose POC Glucose 161 H Lactic Acid Phosphorus Magnesium AST ALT Alkaline Phosphatase Ammonia Total Creatine Kinase CK-MB (CK-2) NT-Pro-B Natriuret Pep 2143 H Total Protein Albumin Free T4 Urine Creatinine Urine Chloride Crossmatch 03/02/19 03/02/19 03/02/19 05:27 05:27 05:27 WBC 17.8 H RBC 3.50 L Hgb 8.5 L Hct 29.5 L MCH 24 L MCHC 29 L RDW 21.9 H Plt Count Lymph % (Auto) [place] # Seg Neutrophils % Seg Neuts % (Manual) 94.0 H Lymphocytes % (Manual) 2.0 L Nucleated RBC % 1.0 H Seg Neutrophils # Seg Neutrophils # Man 16.7 H Lymphocytes # (Manual) 0.4 L INR D-Dimer POC ABG pH ABG pH POC ABG pCO2 POC ABG pO2 ABG pO2 ABG HCO3 ABG O2 Saturation ABG Base Excess ABG Hemoglobin Oxyhemoglobin Sodium 156 H D Potassium 5.4 H Chloride 108.6 H Carbon Dioxide 39 H BUN 60 H Creatinine Glucose 159 H POC Glucose Lactic Acid Phosphorus Magnesium AST 164 H ALT Alkaline Phosphatase 164 H Ammonia 81.0 H Total Creatine Kinase CK-MB (CK-2) NT-Pro-B Natriuret Pep Total Protein 6.2 L Albumin 2.2 L Free T4 Urine Creatinine Urine Chloride Crossmatch 03/02/19 03/02/19 03/02/19 05:27 06:04 10:56 WBC RBC Hgb Hct MCH MCHC RDW Plt Count Lymph % (Auto) [place] # Seg Neutrophils % Seg Neuts % (Manual) Lymphocytes % (Manual) Nucleated RBC % Seg Neutrophils # Seg Neutrophils # Man Lymphocytes # (Manual) INR D-Dimer POC ABG pH ABG pH 7.239 L POC ABG pCO2 POC ABG pO2 ABG pO2 60.0 L 103.9 H ABG HCO3 36.6 H 32.9 H ABG O2 Saturation 88.3 L ABG Base Excess 7.3 H 7.7 H ABG Hemoglobin 9.1 L 9.0 L Oxyhemoglobin 86.3 L Sodium Potassium Chloride Carbon Dioxide BUN Creatinine Glucose POC Glucose Lactic Acid Phosphorus 6.90 H Magnesium 2.80 H AST ALT Alkaline Phosphatase Ammonia Total Creatine Kinase CK-MB (CK-2) NT-Pro-B Natriuret Pep Total Protein Albumin Free T4 Urine Creatinine Urine Chloride Crossmatch 03/02/19 03/02/19 03/02/19 13:58 23:40 Unknown WBC RBC Hgb Hct MCH MCHC RDW Plt Count Lymph % (Auto) [place] # Seg Neutrophils % Seg Neuts % (Manual) Lymphocytes % (Manual) Nucleated RBC % Seg Neutrophils # Seg Neutrophils # Man Lymphocytes # (Manual) INR D-Dimer POC ABG pH ABG pH POC ABG pCO2 POC ABG pO2 ABG pO2 ABG HCO3 ABG O2 Saturation ABG Base Excess ABG Hemoglobin Oxyhemoglobin Sodium Potassium Chloride Carbon Dioxide BUN Creatinine Glucose POC Glucose 127 H 161 H Lactic Acid Phosphorus Magnesium AST ALT Alkaline Phosphatase Ammonia Total Creatine Kinase CK-MB (CK-2) NT-Pro-B Natriuret Pep Total Protein Albumin Free T4 Urine Creatinine 218.2 H Urine Chloride Crossmatch 03/03/19 03/03/19 03/03/19 05:00 05:00 05:25 WBC 17.8 H RBC 3.62 L Hgb 8.8 L Hct 28.9 L MCH 24 L MCHC RDW 22.8 H Plt Count Lymph % (Auto) [place] # Seg Neutrophils % Seg Neuts % (Manual) 96.0 H Lymphocytes % (Manual) 1.0 L Nucleated RBC % 3.0 H Seg Neutrophils # Seg Neutrophils # Man 17.1 H Lymphocytes # (Manual) 0.2 L INR D-Dimer POC ABG pH ABG pH 7.335 L POC ABG pCO2 POC ABG pO2 ABG pO2 ABG HCO3 32.0 H ABG O2 Saturation ABG Base Excess 5.2 H ABG Hemoglobin 8.2 L Oxyhemoglobin 94.9 L Sodium 160 H Potassium 3.5 L D Chloride 113.7 H Carbon Dioxide BUN 90 H Creatinine 1.7 H D Glucose 149 H POC Glucose Lactic Acid Phosphorus Magnesium 2.90 H AST 624 H ALT 211 H Alkaline Phosphatase 416 H Ammonia Total Creatine Kinase CK-MB (CK-2) NT-Pro-B Natriuret Pep Total Protein 6.2 L Albumin 2.2 L Free T4 Urine Creatinine Urine Chloride Crossmatch 03/03/19 03/03/19 03/03/19 05:41 12:27 15:54 WBC RBC Hgb Hct MCH MCHC RDW Plt Count Lymph % (Auto) [place] # Seg Neutrophils % Seg Neuts % (Manual) Lymphocytes % (Manual) Nucleated RBC % Seg Neutrophils # Seg Neutrophils # Man Lymphocytes # (Manual) INR D-Dimer POC ABG pH ABG pH POC ABG pCO2 POC ABG pO2 ABG pO2 ABG HCO3 ABG O2 Saturation ABG Base Excess ABG Hemoglobin Oxyhemoglobin Sodium Potassium Chloride Carbon Dioxide BUN Creatinine Glucose POC Glucose 150 H 167 H Lactic Acid Phosphorus Magnesium AST ALT Alkaline Phosphatase Ammonia Total Creatine Kinase CK-MB (CK-2) NT-Pro-B Natriuret Pep Total Protein Albumin Free T4 0.50 L Urine Creatinine Urine Chloride Crossmatch 03/03/19 03/03/19 03/04/19 17:32 23:57 04:11 WBC RBC Hgb Hct MCH MCHC RDW Plt Count Lymph % (Auto) [place] # Seg Neutrophils % Seg Neuts % (Manual) Lymphocytes % (Manual) Nucleated RBC % Seg Neutrophils # Seg Neutrophils # Man Lymphocytes # (Manual) INR D-Dimer POC ABG pH 7.332 L ABG pH POC ABG pCO2 57.1 H POC ABG pO2 ABG pO2 ABG HCO3 ABG O2 Saturation ABG Base Excess ABG Hemoglobin Oxyhemoglobin Sodium Potassium Chloride Carbon Dioxide BUN Creatinine Glucose POC Glucose 165 H 202 H Lactic Acid Phosphorus Magnesium AST ALT Alkaline Phosphatase Ammonia Total Creatine Kinase CK-MB (CK-2) NT-Pro-B Natriuret Pep Total Protein Albumin Free T4 Urine Creatinine Urine Chloride Crossmatch 03/04/19 03/04/19 03/04/19 04:38 04:38 05:30 WBC 23.0 H RBC 3.36 L Hgb 7.9 L Hct 26.6 L MCH 24 L MCHC RDW 23.1 H Plt Count Lymph % (Auto) [place] # Seg Neutrophils % Seg Neuts % (Manual) 98.0 H Lymphocytes % (Manual) 0 L Nucleated RBC % Seg Neutrophils # Seg Neutrophils # Man 22.5 H Lymphocytes # (Manual) 0.0 L INR D-Dimer POC ABG pH ABG pH POC ABG pCO2 POC ABG pO2 ABG pO2 ABG HCO3 ABG O2 Saturation ABG Base Excess ABG Hemoglobin Oxyhemoglobin Sodium 151 H D Potassium Chloride 110.4 H Carbon Dioxide BUN 103 H Creatinine 2.0 H Glucose 177 H POC Glucose 172 H Lactic Acid Phosphorus Magnesium AST 244 H ALT 159 H Alkaline Phosphatase 365 H Ammonia Total Creatine Kinase CK-MB (CK-2) NT-Pro-B Natriuret Pep Total Protein 5.9 L Albumin 2.1 L Free T4 Urine Creatinine Urine Chloride Crossmatch 03/04/19 03/04/19 03/04/19 12:10 12:39 18:11 WBC RBC Hgb Hct MCH MCHC RDW Plt Count Lymph % (Auto) [place] # Seg Neutrophils % Seg Neuts % (Manual) Lymphocytes % (Manual) Nucleated RBC % Seg Neutrophils # Seg Neutrophils # Man Lymphocytes # (Manual) INR D-Dimer POC ABG pH ABG pH POC ABG pCO2 POC ABG pO2 ABG pO2 ABG HCO3 ABG O2 Saturation ABG Base Excess ABG Hemoglobin Oxyhemoglobin Sodium Potassium Chloride Carbon Dioxide BUN Creatinine Glucose POC Glucose 226 H 173 H Lactic Acid Phosphorus Magnesium AST ALT Alkaline Phosphatase Ammonia Total Creatine Kinase CK-MB (CK-2) NT-Pro-B Natriuret Pep Total Protein Albumin Free T4 Urine Creatinine 185.9 H Urine Chloride 10.2 L Crossmatch 03/04/19 03/05/19 03/05/19 23:24 04:16 04:28 WBC 23.8 H RBC 3.08 L Hgb 7.5 L Hct 25.0 L MCH 24 L MCHC RDW 23.0 H Plt Count Lymph % (Auto) [place] # Seg Neutrophils % Seg Neuts % (Manual) 96.0 H Lymphocytes % (Manual) 3.0 L Nucleated RBC % 1.0 H Seg Neutrophils # Seg Neutrophils # Man 22.8 H Lymphocytes # (Manual) 0.7 L INR D-Dimer POC ABG pH 7.274 L ABG pH POC ABG pCO2 59.7 H POC ABG pO2 107 H ABG pO2 ABG HCO3 ABG O2 Saturation ABG Base Excess ABG Hemoglobin Oxyhemoglobin Sodium Potassium Chloride Carbon Dioxide BUN Creatinine Glucose POC Glucose 184 H Lactic Acid Phosphorus Magnesium AST ALT Alkaline Phosphatase Ammonia Total Creatine Kinase CK-MB (CK-2) NT-Pro-B Natriuret Pep Total Protein Albumin Free T4 Urine Creatinine Urine Chloride Crossmatch 03/05/19 03/05/19 03/05/19 04:28 04:28 05:29 WBC RBC Hgb Hct MCH MCHC RDW Plt Count Lymph % (Auto) [place] # Seg Neutrophils % Seg Neuts % (Manual) Lymphocytes % (Manual) Nucleated RBC % Seg Neutrophils # Seg Neutrophils # Man Lymphocytes # (Manual) INR D-Dimer POC ABG pH ABG pH POC ABG pCO2 POC ABG pO2 ABG pO2 ABG HCO3 ABG O2 Saturation ABG Base Excess ABG Hemoglobin Oxyhemoglobin Sodium 147 H Potassium Chloride 107.9 H Carbon Dioxide BUN 112 H Creatinine 2.3 H Glucose 153 H POC Glucose 147 H Lactic Acid Phosphorus Magnesium AST 188 H ALT 138 H Alkaline Phosphatase 384 H Ammonia 71.0 H Total Creatine Kinase CK-MB (CK-2) NT-Pro-B Natriuret Pep Total Protein 6.0 L Albumin 2.2 L Free T4 Urine Creatinine Urine Chloride Crossmatch Chest x-ray: image reviewed Allied health notes reviewed: RT
[2019-03-05] MEDS: LACTULOSE 20 GM/30 ML ORAL LIQD PO SCH ×2 (10:25→22:01)
[2019-03-05] MEDS: ENOXAPARIN 30 MG/0.3 ML INJ SUB-Q SCH (10:26)
[2019-03-05] MEDS: MEROPENEM/NS 1 GRAM/100 ML 1 GRAM/100 ML BAG IV SCH ×2 (10:26→22:02)
[2019-03-05] MEDS: FAMOTIDINE 20 MG TAB PO SCH (10:26)
--- NOTE | 2019-03-05 11:21 | Progress Note ---
Assessment and Plan Cultures: Blood culture 02/27/19 no growth to date Urine culture 02/27/19 no growth to date Throacentesis culture 02/28/19 - no growth, no orgs on gram stain. 03/02/2019 sputum: olive albicans Assessment: 49 yo F PMHx metastatic breast cancer admitted with worsening shortness of breath. 1. Acute sepsis with shock - with tachycardia and leukocytosis. Likely secondary to pneumonia. Breast wound looks clean. 2. B/L Pneumonia - difficult to tell with imaging. S/P thoracentesis, no growth on culture. Sputum with Olive - colonization. 3. Large breast wound - no obvious purulence and family denies any issues with the wound at this time. Obvious risk for infection, but at present appears stable. 4. Metastatic breast cancer 5. SELAM: Creatinine worsening. Renally adjust abx. Nephrology following 6. Worsening LFTs and alkaline phosphatase, bilirubin normal. ?shock liver. RUQ US ordered Recs: Continue IV Meropenem, renally adjusted D2 today RUQ US ordered due to LFT elevation Overall extremely poor prognosis Sebastien Perkins MD, FACP [facility] ([facility] M: [phone] O: [phone] F: [phone] Subjective Date of service: 03/05/19 Principal diagnosis: Ac. hypoxemic resp failure; Sev Sepsis; R. pleural effusion; Met. breast CA Interval history: Afebrile. Pressors weaned off. Sedated, intubated. Discussed with RN. Objective - Exam Narrative Exam: Physical Exam: Constitutional: sedated, intubated Head, Ears, Nose: Normocephalic, atraumatic. External ears, nose normal Eyes: Conjunctivae/corneas clear. No icterus. No ptosis. Neck: intubated Oral: intubated Cardiovascular: S1, S2 normal. Respiratory: Good air entry, clear to auscultation bilaterally GI: Soft, non-tender; bowel sounds normal. No peritoneal signs Musculoskeletal: No pedal edema, no cyanosis. Skin: large left breast wound + with dressing Hem/Lymphatic: No palpable cervical or supraclavicular nodes. No lymphangitis Psych: sedated Neurological: sedated, intubated, on vent - Constitutional Vitals: Vital Signs Temp Pulse Resp BP Pulse Ox 98.1 F 96 H 10 L 89/59 99 03/05/19 07:56 03/05/19 10:45 03/05/19 10:45 03/05/19 10:45 03/05/19 10:45 Temperature -Last 24 Hours Temperature 98.1 F Temperature 98.7 F Temperature 98.9 F Temperature 100.1 F Temperature 99.0 F Temperature 98.3 F - Labs CBC & Chem 7: 03/05/19 04:28 03/05/19 04:28 Labs: Abnormal lab results 03/04/19 03/04/19 03/04/19 Range/Units 12:10 12:39 18:11 WBC (4.5-11.0) K/mm3 RBC (3.65-5.03) M/mm3 Hgb (10.1-14.3) gm/dl Hct (30.3-42.9) % MCH (28-32) pg RDW (13.2-15.2) % Seg Neuts % (Manual) (40.0-70.0) % Lymphocytes % (Manual) (13.4-35.0) % Nucleated RBC % (0.0-0.9) % Seg Neutrophils # Man (1.8-7.7) K/mm3 Lymphocytes # (Manual) (1.2-5.4) K/mm3 POC ABG pH (7.35-7.45) POC ABG pCO2 (35-45) POC ABG pO2 (80-105) Sodium (137-145) mmol/L Chloride (98-107) mmol/L BUN (7-17) mg/dL Creatinine (0.7-1.2) mg/dL Glucose (65-100) mg/dL POC Glucose 226 H 173 H (70-105) AST (5-40) units/L ALT (7-56) units/L Alkaline Phosphatase (35-129) units/L Ammonia (25-60) umol/L Total Protein (6.3-8.2) g/dL Albumin (3.9-5) g/dL Urine Creatinine 185.9 H (0.1-20.0) mg/dL Urine Chloride 10.2 L (110-250) mmolL 03/04/19 03/05/19 03/05/19 Range/Units 23:24 04:16 04:28 WBC 23.8 H (4.5-11.0) K/mm3 RBC 3.08 L (3.65-5.03) M/mm3 Hgb 7.5 L (10.1-14.3) gm/dl Hct 25.0 L (30.3-42.9) % MCH 24 L (28-32) pg RDW 23.0 H (13.2-15.2) % Seg Neuts % (Manual) 96.0 H (40.0-70.0) % Lymphocytes % (Manual) 3.0 L (13.4-35.0) % Nucleated RBC % 1.0 H (0.0-0.9) % Seg Neutrophils # Man 22.8 H (1.8-7.7) K/mm3 Lymphocytes # (Manual) 0.7 L (1.2-5.4) K/mm3 POC ABG pH 7.274 L (7.35-7.45) POC ABG pCO2 59.7 H (35-45) POC ABG pO2 107 H (80-105) Sodium (137-145) mmol/L Chloride (98-107) mmol/L BUN (7-17) mg/dL Creatinine (0.7-1.2) mg/dL Glucose (65-100) mg/dL POC Glucose 184 H (70-105) AST (5-40) units/L ALT (7-56) units/L Alkaline Phosphatase (35-129) units/L Ammonia (25-60) umol/L Total Protein (6.3-8.2) g/dL Albumin (3.9-5) g/dL Urine Creatinine (0.1-20.0) mg/dL Urine Chloride (110-250) mmolL 03/05/19 03/05/19 03/05/19 Range/Units 04:28 04:28 05:29 WBC (4.5-11.0) K/mm3 RBC (3.65-5.03) M/mm3 Hgb (10.1-14.3) gm/dl Hct (30.3-42.9) % MCH (28-32) pg RDW (13.2-15.2) % Seg Neuts % (Manual) (40.0-70.0) % Lymphocytes % (Manual) (13.4-35.0) % Nucleated RBC % (0.0-0.9) % Seg Neutrophils # Man (1.8-7.7) K/mm3 Lymphocytes # (Manual) (1.2-5.4) K/mm3 POC ABG pH (7.35-7.45) POC ABG pCO2 (35-45) POC ABG pO2 (80-105) Sodium 147 H (137-145) mmol/L Chloride 107.9 H (98-107) mmol/L BUN 112 H (7-17) mg/dL Creatinine 2.3 H (0.7-1.2) mg/dL Glucose 153 H (65-100) mg/dL POC Glucose 147 H (70-105) AST 188 H (5-40) units/L ALT 138 H (7-56) units/L Alkaline Phosphatase 384 H (35-129) units/L Ammonia 71.0 H (25-60) umol/L Total Protein 6.0 L (6.3-8.2) g/dL Albumin 2.2 L (3.9-5) g/dL Urine Creatinine (0.1-20.0) mg/dL Urine Chloride (110-250) mmolL - Imaging and cardiology Chest x-ray: report reviewed, image reviewed (diffuse bilateral airspace opacities)
--- NOTE | 2019-03-05 12:27 | Ultrasound Report ---
ULTRASOUND RENAL INDICATION / CLINICAL INFORMATION: Acute kidney injury, acute renal insufficiency. COMPARISON: CT abdomen without contrast dated 01/24/2019 FINDINGS: RIGHT KIDNEY: Length = 13.2 cm. [normal > 9 cm] - Parenchymal Thickness = 1.4 cm. [normal > 1.5 cm] - Echogenicity: Normal. - Hydronephrosis: None. - Cyst or mass: No significant abnormality. - Stones: Scattered tiny calyceal stones LEFT KIDNEY: Length = 14.0 cm. [normal > 9 cm] - Parenchymal Thickness = 1.6 cm. [normal > 1.5 cm] - Echogenicity: Normal. - Hydronephrosis: None. - Cyst or mass: No significant abnormality. - Stones: Scattered tiny calyceal stones URINARY BLADDER: No significant abnormality. FREE FLUID: None. ADDITIONAL FINDINGS: None. IMPRESSION: No obstructive uropathy. Scattered tiny bilateral renal calyceal stones are suspected. Otherwise unremarkable renal ultrasound. Signer Name: Kerwin Awad Jr, MD Signed: 03/05/2019 12:22 PM Workstation Name: [id number]
--- NOTE | 2019-03-05 13:07 | Progress Note ---
Assessment and Plan Limited echo reviewed - normal EF. HR improved. Cont supportive management. Overall guarded prognosis. Nothing further to add from cardiac perspective at this time. Will follow on as needed basis. The patient has been seen in conjunction with Dr. Tran who agrees with the assessment and plan of care. - Patient Problems (1) Sinus tachycardia Current Visit: Yes Status: Acute (2) Acute respiratory failure Current Visit: Yes Status: Acute Qualifiers: Respiratory failure complication: hypoxia Qualified Code(s): J96.01 - Acute respiratory failure with hypoxia (3) Pneumonia Current Visit: Yes Status: Suspected Qualifiers: Pneumonia type: due to unspecified organism Laterality: bilateral Lung location: unspecified part of lung Qualified Code(s): J18.9 - Pneumonia, unspecified organism (4) Sepsis Current Visit: Yes Status: Acute Qualifiers: Sepsis type: sepsis due to unspecified organism Sepsis acute organ dysfunction status: unspecified Qualified Code(s): A41.9 - Sepsis, unspecified organism (5) Hypotension Current Visit: Yes Status: Acute (6) Metastatic breast cancer Current Visit: Yes Status: Chronic (7) Open breast wound Current Visit: Yes Status: Acute Qualifiers: Encounter type: initial encounter Laterality: unspecified laterality Qualified Code(s): S21.009A - Unspecified open wound of unspecified breast, initial encounter (8) Hypernatremia Current Visit: Yes Status: Acute (9) SELAM (acute kidney injury) Current Visit: Yes Status: Acute (10) Transaminitis Current Visit: Yes Status: Acute (11) Anemia Current Visit: Yes Status: Acute Qualifiers: Anemia type: unspecified type Qualified Code(s): D64.9 - Anemia, unspecified Subjective Date of service: 03/05/19 Principal diagnosis: Ac. hypoxemic resp failure; Sev Sepsis; R. pleural effusion; Met. breast CA Interval history: pt remains intubated, sedated, on vasopressin, in SR on tele with HR 90s. no family at bedside. Objective Last Vital Signs Temp 98.2 F 03/05/19 12:00 Pulse 96 H 03/05/19 10:45 Resp 10 L 03/05/19 10:45 BP 89/59 03/05/19 10:45 Pulse Ox 99 03/05/19 10:45 - Physical Examination General: Other (intubated) Neck: Positive: neck supple, trachea midline Cardiac: Positive: Reg Rate and Rhythm, S1/S2 Lungs: Positive: Decreased Breath Sounds, Oxygen, Ventilated Respirations Neuro: Positive: Other (intubated) Abdomen: Negative: Tender Skin: Negative: Rash - Labs and Meds Cardiac Enzymes 03/05/19 Range/Units 04:28 AST 188 H (5-40) units/L CBC 03/05/19 Range/Units 04:28 WBC 23.8 H (4.5-11.0) K/mm3 RBC 3.08 L (3.65-5.03) M/mm3 Hgb 7.5 L (10.1-14.3) gm/dl Hct 25.0 L (30.3-42.9) % Plt Count 260 (140-440) K/mm3 Comprehensive Metabolic Panel 03/05/19 Range/Units 04:28 Sodium 147 H (137-145) mmol/L Potassium 4.5 (3.6-5.0) mmol/L Chloride 107.9 H (98-107) mmol/L Carbon Dioxide 25 (22-30) mmol/L BUN 112 H (7-17) mg/dL Creatinine 2.3 H (0.7-1.2) mg/dL Glucose 153 H (65-100) mg/dL Calcium 9.0 (8.4-10.2) mg/dL AST 188 H (5-40) units/L ALT 138 H (7-56) units/L Alkaline Phosphatase 384 H (35-129) units/L Total Protein 6.0 L (6.3-8.2) g/dL Albumin 2.2 L (3.9-5) g/dL - Imaging and Cardiology EKG: report reviewed, image reviewed Echo: report reviewed - EKG Sinus rhythms and dysrhythmias: sinus tachycardia - Allied health notes Allied health notes reviewed: RT
--- NOTE | 2019-03-05 13:38 | Progress Note ---
Assessment and Plan Assessment and plan: - Acute respiratory failure with hypoxia edema versus pneumonia. Intubated and on MVS 03/01/19 Pulmonary following - Sepsis with shock Blood culture 02/27/19 no growth to date Urine culture 02/27/19 no growth to date - Bilateral pneumonia Throacentesis culture 02/28/19 - no growth, no orgs on gram stain. 03/02/2019 sputum: gianfranco albicans ID following - Recurrent pleural effusion s/p thoracentesis - Left breast cancer with mets to the bones and liver s/p surgery Dr. Self following [facility]. ET nurse consult - ? Heart failure Echocardiogram revealed left ventricular size normal with no pericardial effusion Shock liver -Elevated LFTs and alkaline phosphatase - Hyperammonemia Cont lactulose as needed - Hypernatrmia Free water via [place]obb[place] - Hypertension Monitor BP - ELevated D- dimer CT angio was negative for PE - Poor prognosis. History Interval history: No new issues overnight. Hospitalist Physical - Constitutional Vitals: Temp Pulse Resp BP Pulse Ox 98.2 F 99 H 10 L 100/61 96 03/05/19 12:00 03/05/19 13:17 03/05/19 10:45 03/05/19 13:17 03/05/19 13:17 General appearance: Present: other (intubated) - EENT Eyes: Present: PERRL, EOM intact ENT: hearing intact, clear oral mucosa, dentition normal - Neck Neck: Present: supple, normal ROM - Respiratory Respiratory effort: normal Respiratory: bilateral: diminished, rhonchi - Cardiovascular Rhythm: regular Heart Sounds: Present: S1 & S2. Absent: gallop, rub - Extremities Extremities: no ischemia, No edema, Full ROM - Abdominal General gastrointestinal: soft, non-tender, non-distended, normal bowel sounds - Integumentary Integumentary: Present: clear, warm, dry - Neurologic Neurologic: CNII-XII intact, moves all extremities Results - Labs CBC & Chem 7: 03/05/19 04:28 03/05/19 04:28 Labs: Laboratory Last Values WBC 23.8 K/mm3 (4.5-11.0) H 03/05/19 04:28 RBC 3.08 M/mm3 (3.65-5.03) L 03/05/19 04:28 Hgb 7.5 gm/dl (10.1-14.3) L 03/05/19 04:28 Hct 25.0 % (30.3-42.9) L 03/05/19 04:28 MCV 81 fl (79-97) 03/05/19 04:28 MCH 24 pg (28-32) L 03/05/19 04:28 MCHC 30 % (30-34) 03/05/19 04:28 RDW 23.0 % (13.2-15.2) H 03/05/19 04:28 Plt Count 260 K/mm3 (140-440) 03/05/19 04:28 Lymph % (Auto) Ginner Helper 03/04/19 04:38 [place] % (Auto) Ginner Helper 03/04/19 04:38 Eos % (Auto) Ginner Helper 03/04/19 04:38 Baso % (Auto) Ginner Helper 03/04/19 04:38 Lymph # Ginner Helper 03/04/19 04:38 [place] # Ginner Helper 03/04/19 04:38 Eos # Ginner Helper 03/04/19 04:38 Baso # Ginner Helper 03/04/19 04:38 Add Manual Diff Complete 03/05/19 04:28 Total Counted 100 03/05/19 04:28 Seg Neutrophils % Ginner Helper 03/05/19 04:28 Seg Neuts % (Manual) 96.0 % (40.0-70.0) H 03/05/19 04:28 Band Neutrophils % 0 % 03/05/19 04:28 Lymphocytes % (Manual) 3.0 % (13.4-35.0) L 03/05/19 04:28 Reactive Lymphs % (Man) 0 % 03/05/19 04:28 Monocytes % (Manual) 1.0 % (0.0-7.3) 03/05/19 04:28 Eosinophils % (Manual) 0 % (0.0-4.3) 03/05/19 04:28 Basophils % (Manual) 0 % (0.0-1.8) 03/05/19 04:28 Metamyelocytes % 0 % 03/05/19 04:28 Myelocytes % 0 % 03/05/19 04:28 Promyelocytes % 0 % 03/05/19 04:28 Blast Cells % 0 % 03/05/19 04:28 Nucleated RBC % 1.0 % (0.0-0.9) H 03/05/19 04:28 Seg Neutrophils # Ginner Helper 03/04/19 04:38 Seg Neutrophils # Man 22.8 K/mm3 (1.8-7.7) H 03/05/19 04:28 Band Neutrophils # 0.0 K/mm3 03/05/19 04:28 Lymphocytes # (Manual) 0.7 K/mm3 (1.2-5.4) L 03/05/19 04:28 Abs React Lymphs (Man) 0.0 K/mm3 03/05/19 04:28 Monocytes # (Manual) 0.2 K/mm3 (0.0-0.8) 03/05/19 04:28 Eosinophils # (Manual) 0.0 K/mm3 (0.0-0.4) 03/05/19 04:28 Basophils # (Manual) 0.0 K/mm3 (0.0-0.1) 03/05/19 04:28 Metamyelocytes # 0.0 K/mm3 03/05/19 04:28 Myelocytes # 0.0 K/mm3 03/05/19 04:28 Promyelocytes # 0.0 K/mm3 03/05/19 04:28 Blast Cells # 0.0 K/mm3 03/05/19 04:28 WBC Morphology Not Reportable 03/05/19 04:28 Hypersegmented Neuts Not Reportable 03/05/19 04:28 Hyposegmented Neuts Not Reportable 03/05/19 04:28 Hypogranular Neuts Not Reportable 03/05/19 04:28 Smudge Cells Not Reportable 03/05/19 04:28 Toxic Granulation Not Reportable 03/05/19 04:28 Toxic Vacuolation Not Reportable 03/05/19 04:28 Dohle Bodies Not Reportable 03/05/19 04:28 Pelger-Huet Anomaly Not Reportable 03/05/19 04:28 Amelie Rods Not Reportable 03/05/19 04:28 Platelet Estimate Consistent w auto 03/05/19 04:28 Clumped Platelets Not Reportable 03/05/19 04:28 Plt Clumps, EDTA Not Reportable 03/05/19 04:28 Large Platelets Not Reportable 03/05/19 04:28 Giant Platelets Not Reportable 03/05/19 04:28 Platelet Satelliting Not Reportable 03/05/19 04:28 Plt Morphology Comment Not Reportable 03/05/19 04:28 RBC Morphology Not Reportable 03/05/19 04:28 Dimorphic RBCs Not Reportable 03/05/19 04:28 Polychromasia Not Reportable 03/05/19 04:28 Hypochromasia Not Reportable 03/05/19 04:28 Poikilocytosis Not Reportable 03/05/19 04:28 Anisocytosis 1+ 03/05/19 04:28 Microcytosis Not Reportable 03/05/19 04:28 Macrocytosis Not Reportable 03/05/19 04:28 Spherocytes Not Reportable 03/05/19 04:28 Pappenheimer Bodies Not Reportable 03/05/19 04:28 Sickle Cells Not Reportable 03/05/19 04:28 Target Cells Not Reportable 03/05/19 04:28 Tear Drop Cells Not Reportable 03/05/19 04:28 Ovalocytes Not Reportable 03/05/19 04:28 Stomatocytes 1+ 03/03/19 05:00 Helmet Cells Not Reportable 03/05/19 04:28 Massey-Acequia Bodies Not Reportable 03/05/19 04:28 Trinity Rings Not Reportable 03/05/19 04:28 Catherine Cells Not Reportable 03/05/19 04:28 Bite Cells Not Reportable 03/05/19 04:28 Crenated Cell Not Reportable 03/05/19 04:28 Elliptocytes Not Reportable 03/05/19 04:28 Acanthocytes (Spur) Not Reportable 03/05/19 04:28 Rouleaux Not Reportable 03/05/19 04:28 Hemoglobin C Crystals Not Reportable 03/05/19 04:28 Schistocytes Not Reportable 03/05/19 04:28 Malaria parasites Not Reportable 03/05/19 04:28 Jose Bodies Not Reportable 03/05/19 04:28 Hem Pathologist Commnt No 03/05/19 04:28 PT 14.8 Sec. (12.2-14.9) 02/27/19 12:38 INR 1.17 (0.87-1.13) H 02/27/19 12:38 APTT 26.9 Sec. (24.2-36.6) 02/27/19 12:38 D-Dimer 5778.32 ng/mlDDU (0-234) H 02/27/19 12:38 POC ABG pH 7.274 (7.35-7.45) L 03/05/19 04:16 ABG pH 7.335 pH Units (7.350-7.450) L 03/03/19 05:25 POC ABG pCO2 59.7 (35-45) H 03/05/19 04:16 ABG pCO2 61.3 mm Hg 03/03/19 05:25 POC ABG pO2 107 (80-105) H 03/05/19 04:16 ABG pO2 89.2 mm Hg (80.0-90.0) 03/03/19 05:25 POC ABG HCO3 27.7 (22-26 mml/L) 03/05/19 04:16 ABG HCO3 32.0 mmol/L (20.0-26.0) H 03/03/19 05:25 POC ABG Total CO2 29 (23-27mmol/L) 03/05/19 04:16 POC ABG O2 Sat 97 03/05/19 04:16 ABG O2 Saturation 97.0 % (95.0-99.0) 03/03/19 05:25 ABG O2 Content 11.1 (0.0-44) 03/03/19 05:25 POC ABG Base Excess 1 ((-2) - (+3)mmol/L) 03/05/19 04:16 ABG Base Excess 5.2 mmol/L (-2.0-3.0) H 03/03/19 05:25 ABG Hemoglobin 8.2 gm/dl (12.0-16.0) L 03/03/19 05:25 ABG Carboxyhemoglobin 1.7 % (0.0-5.0) 03/03/19 05:25 ABG Methemoglobin 0.5 % (0.0-1.5) 03/03/19 05:25 Oxyhemoglobin 94.9 % (95.0-99.0) L 03/03/19 05:25 FiO2 90 % 03/05/19 04:16 Sodium 147 mmol/L (137-145) H 03/05/19 04:28 Potassium 4.5 mmol/L (3.6-5.0) 03/05/19 04:28 Chloride 107.9 mmol/L (98-107) H 03/05/19 04:28 Carbon Dioxide 25 mmol/L (22-30) 03/05/19 04:28 Anion Gap 19 mmol/L 03/05/19 04:28 BUN 112 mg/dL (7-17) H 03/05/19 04:28 Creatinine 2.3 mg/dL (0.7-1.2) H 03/05/19 04:28 Estimated GFR 27 ml/min 03/05/19 04:28 BUN/Creatinine Ratio 49 % 03/05/19 04:28 Glucose 153 mg/dL (65-100) H 03/05/19 04:28 POC Glucose 181 (70-105) H 03/05/19 12:00 Lactic Acid 2.30 mmol/L (0.7-2.0) H* 02/27/19 18:12 Calcium 9.0 mg/dL (8.4-10.2) 03/05/19 04:28 Phosphorus 3.30 mg/dL (2.5-4.5) D 03/03/19 05:00 Magnesium 2.90 mg/dL (1.7-2.3) H 03/03/19 05:00 Total Bilirubin 0.20 mg/dL (0.1-1.2) 03/05/19 04:28 Direct Bilirubin < 0.2 mg/dL (0-0.2) 02/27/19 11:33 Indirect Bilirubin 0.0 mg/dL 02/27/19 11:33 AST 188 units/L (5-40) H 03/05/19 04:28 ALT 138 units/L (7-56) H 03/05/19 04:28 Alkaline Phosphatase 384 units/L (35-129) H 03/05/19 04:28 Ammonia 71.0 umol/L (25-60) H 03/05/19 04:28 Total Creatine Kinase 197 units/L (30-135) H 02/27/19 11:33 CK-MB (CK-2) 4.1 ng/mL (0.0-4.0) H 02/27/19 11:33 CK-MB (CK-2) Rel Index 2.0 (0-4) 02/27/19 11:33 Troponin T 0.027 ng/mL (0.00-0.029) 03/02/19 05:27 NT-Pro-B Natriuret Pep 2143 pg/mL (0-900) H 03/02/19 05:27 Total Protein 6.0 g/dL (6.3-8.2) L 03/05/19 04:28 Albumin 2.2 g/dL (3.9-5) L 03/05/19 04:28 Albumin/Globulin Ratio 0.6 % 03/05/19 04:28 Procalcitonin 2.22 ng/mL (<0.15) 03/02/19 17:00 TSH 0.427 mlU/mL (0.270-4.200) 03/03/19 15:54 Free T4 0.50 ng/dL (0.76-1.46) L 03/03/19 15:54 Urine Color Heather (Yellow) 03/04/19 12:39 Urine Turbidity Turbid (Clear) 03/04/19 12:39 Urine pH 5.0 (5.0-7.0) 03/04/19 12:39 Ur Specific [place] 1.023 (1.003-1.030) 03/04/19 12:39 Urine Protein 30 mg/dl mg/dL (Negative) 03/04/19 12:39 Urine Glucose (UA) Neg mg/dL (Negative) 03/04/19 12:39 Urine Ketones Tr mg/dL (Negative) 03/04/19 12:39 Urine Blood Mod (Negative) 03/04/19 12:39 Urine Nitrite Neg (Negative) 03/04/19 12:39 Urine Bilirubin Neg (Negative) 03/04/19 12:39 Urine Urobilinogen < 2.0 mg/dL (<2.0) 03/04/19 12:39 Ur Leukocyte Esterase Neg (Negative) 03/04/19 12:39 Urine WBC (Auto) 2.0 /HPF (0.0-6.0) 03/04/19 12:39 Urine RBC (Auto) 3.0 /HPF (0.0-6.0) 03/04/19 12:39 U Epithel Cells (Auto) 1.0 /HPF (0-13.0) 02/27/19 Unknown Urine Bacteria (Auto) 1+ /HPF (Negative) 03/04/19 12:39 WBC Casts 1 /LPF 02/27/19 Unknown Urine Mucus Few /HPF 03/04/19 12:39 Urine Creatinine 185.9 mg/dL (0.1-20.0) H 03/04/19 12:39 Urine Sodium 13 mmol/L 03/04/19 12:39 Urine Chloride 10.2 mmolL (110-250) L 03/04/19 12:39 Blood Type O POSITIVE 02/27/19 11:45 Antibody Screen Negative 02/27/19 11:45 Crossmatch See Detail 02/27/19 11:45 Active Medications - Current Medications Current Medications: Generic Name Dose Route Start Last Admin Trade Name Freq PRN Reason Stop Dose Admin Acetaminophen 650 mg 03/02/19 13:46 03/02/19 15:38 Tylenol PO 650 mg Q6H PRN Administration Fever >101 Albuterol 2.5 mg 02/27/19 21:08 02/28/19 12:35 Proventil IH 2.5 mg Q4HRT PRN Administration Shortness Of Breath Albuterol/Ipratropium 1 ampul 02/28/19 08:00 03/05/19 08:54 Duoneb *Not For Prn Use* IH 1 ampul TIDRT MANISH Administration Lipase/Protease/Amylase 1 each 03/03/19 08:54 Pancreazyenny Zamora 10,500 Unit FEEDTUBE PRN PRN For Clogged Feeding Tube Enoxaparin Sodium 30 mg 03/04/19 10:00 03/05/19 10:26 Enoxaparin SUB-Q 30 mg QDAY MANISH Administration Famotidine 20 mg 03/05/19 10:00 03/05/19 10:26 Pepcid PO 20 mg DAILY MANISH Administration Hydrophilic Ointment 1 applic 03/02/19 04:40 Vaseline Lip Therapy TP Q2HR PRN Dry Lips Norepinephrine 4 mg in 250 mls @ 7.5 mls/hr 03/02/19 05:00 03/04/19 14:46 Levophed Drip 4 Mg/Ns 250 Ml IV 0 mcg/min TITR MANISH 0 mls/hr Titration Protocol 2 MCG/MIN Vasopressin 20 unit/ Sodium 101 mls @ 9.09 mls/hr 03/02/19 05:00 03/05/19 10:32 Chloride IV 0 units/min TITR MANISH 0 mls/hr Titration Protocol 0.03 UNITS/MIN Fentanyl Citrate 2,000 mcg in 100 mls @ 4.64 mls/hr 03/02/19 17:00 03/05/19 12:16 Fentanyl Drip Premix IV 2 mcg/kg/hr TITR MANISH 9.28 mls/hr Administration Protocol 1 MCG/KG/HR MEROPENEM/NS 1 GRAM/100 ML 1 gram in 100 mls @ 100 mls/hr 03/04/19 14:00 03/05/19 10:26 Merrem/Ns 1 Gram/100 Ml IV 100 mls/hr Q12HR MANISH Administration Protocol Insulin Human Lispro 0 unit 03/04/19 13:00 03/05/19 12:21 Humalog SUB-Q 3 unit Q6HR [facility] Administration Protocol Lactulose 20 gm 03/02/19 10:00 03/05/19 10:25 Cephulac PO 20 gm Q12HR MANISH Administration Methylprednisolone Sodium Succinate 40 mg 03/05/19 14:00 Solu-Medrol IV Q8HR [facility] Multi-Ingred Cream/Lotion/Oil/Oint 1 applic 03/02/19 16:43 Artificial Tears Ophth Oint OU Q4HR PRN Dry Eye(s) Simple Syrup 15 ml 03/03/19 08:54 Simple Syrup FEEDTUBE PRN PRN Hypoglycemia Simple Syrup 30 ml 03/03/19 08:54 Simple Syrup FEEDTUBE PRN PRN Hypoglycemia Sodium Bicarbonate 325 mg 03/03/19 08:54 Sodium Bicarbonate FEEDTUBE PRN PRN For Clogged Feeding Tube Nutrition/Malnutrition Assess - Dietary Evaluation Nutrition/Malnutrition Findings: Nutrition Notes Start: 02/28/19 1 3:21 Freq: Status: Active Protocol: Document 03/04/19 09:54 CC (Rec: 03/04/19 10:18 CC [id number]) Co-Sign 03/04/19 09:54 LP Nutrition Notes Initial or Follow up Reassessment Current Diagnosis Acute Kidney Injury,Sepsis, Respiratory Failure Other Pertinent Diagnosis Breast CA stage 4, Pneumonia, SIRS, L breast surgical wound Current Diet Nepro at 40ml/hr Labs/Tests Na 151, K 4.5, Mg 2.9, BUN 103 , Creat 2.0 Pertinent Medications Levophed Vasopressin Solumedrol Height 5 ft 2 in Weight 94.8 kg [place] Body Weight (kg) 50.00 BMI 38.2 Subjective/Other Information TF Nepro running at goal rate of 40ml/hr. Hypernatremia improved but not resoved continue flush of 250ml q4hr, once resolved flush 150ml q4hr Percent of energy/protein needs met: 100%/78% Burn Absent Trauma Absent Minimum of two criteria No physical signs of malnutrition #2 Nutrition Diagnosis Inadequate oral intake Diagnosis Progress(for reassessment Continues documentation) #1 Nutrition Diagnosis Inadequate energy intake Diagnosis Progress(for reassessment Resolved documentation) Is patient on ventilator? Yes Is Patient Ambulatory and/or Out of Bed No REE-([place]-St. Jeor-confined to bed) 1823.256 Kcal/Kg value to use for calculation 16 Approximate Energy Requirements Using 1517 kcal/Kg Calculation Used for Recommendations Kcal/kg Additional Notes PRO needs: 100g (2g/kg IBW 50 kg) Fluid needs: 1ml/kcal or per MD Nutrition Intervention Change Diet Order: continue TF Nutrition Support: Nepro at 40 ml/hr Flush 250 mls q4hr until hypernatremia resolves Flush 150 mls q4hr once hypernatremia resolves Kcal 1,728 Protein (gm) 78 Fluid (mL) 698 Goal #1 Continue to meet at least 75% of energy and protein needs via TF Goal #2 TF tolerance Anticipated Discharge Needs: Unable to determine at this time Follow-Up By: 03/06/19 Additional Comments F/U for TF tolerance, Na labs
[2019-03-05] MEDS: methylPREDNISolone Sod Succinate 40 MG/1 ML INJ IV SCH ×2 (14:00→22:01)
[2019-03-06] MEDS: INSULIN LISPRO 100 UNIT/ML SUB-Q SCH ×3 (00:36→12:00)
[2019-03-06] MEDS: fentaNYL DRIP Premix 2,000 MCG/100 ML BAG IV SCH ×4 (00:37→20:11)
--- NOTE | 2019-03-06 03:39 | XRay Report ---
CHEST 1 VIEW INDICATION / CLINICAL INFORMATION: follow up respiratory failure. COMPARISON: 03/05/2019 FINDINGS: SUPPORT DEVICES: Tubes and lines are stable in position. HEART / MEDIASTINUM: No significant abnormality. LUNGS / PLEURA: There is diffuse bilateral parenchymal disease, noted. There is focal parenchymal dis ease that is worsening in the right upper lobe. The remainder of the lungs are grossly unchanged. No pneumothorax. ADDITIONAL FINDINGS: No significant additional findings. IMPRESSION: 1. Worsening focal airspace disease in the right upper lobe. The remainder of the bilateral pulmonary disease is not appreciably changed. Signer Name: Alysa Castro MD Signed: 03/06/2019 3:35 AM Workstation Name: [email or web address]
[2019-03-06 05:39] LABS: Mean Corpuscular HGB Conc 29 % (30-34); Mean Corpuscular Volume 81 fl (79-97); Platelet Count 272 K/mm3 (140-440); Red Blood Count 3.28 M/mm3 (3.65-5.03)
[2019-03-06 05:58] LABS: Alanine Aminotransferase 144 units/L (7-56); Albumin 2.4 g/dL (3.9-5); Calcium 9.3 mg/dL (8.4-10.2); Hemolysis Index 0
[2019-03-06] MEDS: methylPREDNISolone Sod Succinate 40 MG/1 ML INJ IV SCH ×3 (06:01→22:07)
[2019-03-06 06:02] LABS: Hematocrit 26.4 % (30.3-42.9); Hemoglobin 7.7 gm/dl (10.1-14.3)
[2019-03-06 06:09] LABS: BUN/Creatinine Ratio 51; Blood Urea Nitrogen 132 mg/dL (7-17)
--- NOTE | 2019-03-06 07:25 | Progress Note ---
Assessment and Plan Acute hypoxemic-hypercapnic respiratory failure Sepsis, possible from left lung pneumonia Right pleural effusion Metastatic breast cancer Hypernatremia Poor medical compliance Obesity - switch to PCV re: high PIP's - begin Propofol gtt to improve tolerance / reduce dyssynchrony - get bilateral lower extremity Doppler's re: ? DVT - 2D ECHO poor quality; no pericardial effusion but ? EF - transduce CVP's prn - continue fentanyl gtt and titrate for RASS 0 to -1 - continue enteral nutrition at goal rate as tolerated - continue scopolamine patch for secretion control (+ Sue acuitely) - vasopressors as needed for target MAP > 65 mmHg - daily SAT's and SBT assessment as tolerated in am - CT head on hold till more stable - continue lawson catheter in this critically ill patient with quickly progressing SELAM - VAP bundle addressed (Aspiration precautions, HOB > 40 degrees) - continue Lung protective strategies - increased Peep to 12 - continue to wean FIO2 for O2 sats >90% - continue brnchodilators with pulmonary hygiene per RT - daily CXR's & ABG's acutely - Azotemia per nephrology team - continue to avoid nephrotoxins and adjust all medications fro GFR and CrCL - continue enteral nutrition and advance to goal rate as tolerated (hold for tentative extubation) - continue agitation management / Pain management per CPOT - complete empiric antibiotics for PNA - continue VTE prophylaxis - continue stress ulcer prophylaxis with PPI - continue accuchecks with glycemic control for SSI (While critically ill target blood glucose of 140-180 mg/dL; avoid hypoglycemia) - Continue mobility protocol for pressure ulcer prevention - Continue to monitor hemodynamics closely - Monitor electrolyte profile closely and replete as indicated - continue chronic home medications per attending and as clinically indicated - s/p thoracentesis (1400 ml's drained); follow studies - Wound care per RN & WCT - continue Free water for hypernatremia - continue other care per attending / other consultants ...... care plan discussed with at bedside CONDITION: CRITICAL PROGNOSIS: GUARDED-POOR CODE STATUS: FULL CODE The high probability of a clinically significant, sudden or life-threatening deterioration of the [cardiac, respiratory & neurologic] system(s) required my full and direct attention, intervention and personal management. The aggregate critical care time was [35] minutes without overlap. Time includes spent on; [x] Data Review and interpretation [x] Patient assessment and monitoring of vital signs [x] Documentation [x] Medication orders and management Subjective Date of service: 03/06/19 Principal diagnosis: Ac. hypoxemic resp failure; Sev Sepsis; R. pleural effusion; Met. breast CA Interval history: Patient is seen today for: Acute hypoxemic-hypercapnic respiratory failure; Sepsis, possible from left lung pneumonia; Right pleural effusion; Metastatic breast cancer; Hypernatremia; Poor medical compliance; Obesity Seen and examined at bedside; 24hour events reviewed; nursing and respiratory care staff consulted; no adverse overnight events reported to me; resting in bed; still with ARDS numbers; still with delirium during SAT's; no emesis or overt aspiration Objective Vital Signs - 12hr 03/05/19 03/05/19 03/05/19 19:30 19:45 20:00 Temperature 98.0 F Pulse Rate 100 H 100 H 103 H Pulse Rate [ 101 H Anterior Throughout] Respiratory 22 14 16 Rate Respiratory 26 H Rate [Anterior Throughout] Blood Pressure 107/63 107/61 107/69 O2 Sat by Pulse 94 94 94 Oximetry 03/05/19 03/05/19 03/05/19 20:15 20:30 20:45 Temperature Pulse Rate 104 H 99 H 103 H Pulse Rate [ Anterior Throughout] Respiratory 15 17 21 Rate Respiratory Rate [Anterior Throughout] Blood Pressure 107/69 101/59 98/55 O2 Sat by Pulse 95 94 95 Oximetry 03/05/19 03/05/19 03/05/19 21:00 21:15 21:30 Temperature Pulse Rate 103 H 102 H 101 H Pulse Rate [ Anterior Throughout] Respiratory 18 18 18 Rate Respiratory Rate [Anterior Throughout] Blood Pressure 102/59 105/62 106/59 O2 Sat by Pulse 94 95 95 Oximetry 03/05/19 03/05/19 03/05/19 21:45 22:00 22:15 Temperature Pulse Rate 101 H 102 H 102 H Pulse Rate [ Anterior Throughout] Respiratory 17 16 21 Rate Respiratory Rate [Anterior Throughout] Blood Pressure 109/59 103/62 109/64 O2 Sat by Pulse 95 94 95 Oximetry 03/05/19 03/05/19 03/05/19 22:30 22:45 23:00 Temperature Pulse Rate 99 H 94 H 99 H Pulse Rate [ Anterior Throughout] Respiratory 18 18 15 Rate Respiratory Rate [Anterior Throughout] Blood Pressure 111/64 118/65 109/69 O2 Sat by Pulse 96 95 96 Oximetry 03/05/19 03/05/19 03/05/19 23:15 23:19 23:30 Temperature Pulse Rate 100 H 99 H 100 H Pulse Rate [ Anterior Throughout] Respiratory 19 17 20 Rate Respiratory Rate [Anterior Throughout] Blood Pressure 105/64 105/64 112/60 O2 Sat by Pulse 95 95 95 Oximetry 03/05/19 03/06/19 03/06/19 23:45 00:00 00:05 Temperature 98.8 F Pulse Rate 100 H 99 H 97 H Pulse Rate [ Anterior Throughout] Respiratory 21 20 Rate Respiratory Rate [Anterior Throughout] Blood Pressure 115/64 110/66 110/66 O2 Sat by Pulse 95 95 96 Oximetry 03/06/19 03/06/19 03/06/19 00:15 00:30 00:45 Temperature Pulse Rate 96 H 99 H 99 H Pulse Rate [ Anterior Throughout] Respiratory 18 22 20 Rate Respiratory Rate [Anterior Throughout] Blood Pressure 112/71 109/64 104/66 O2 Sat by Pulse 95 96 96 Oximetry 03/06/19 03/06/19 03/06/19 01:00 01:15 01:30 Temperature Pulse Rate 95 H 99 H 97 H Pulse Rate [ Anterior Throughout] Respiratory 17 16 18 Rate Respiratory Rate [Anterior Throughout] Blood Pressure 104/68 112/59 106/62 O2 Sat by Pulse 96 96 95 Oximetry 03/06/19 03/06/19 03/06/19 01:45 02:00 02:15 Temperature Pulse Rate 98 H 100 H 99 H Pulse Rate [ Anterior Throughout] Respiratory 18 19 15 Rate Respiratory Rate [Anterior Throughout] Blood Pressure 111/63 107/64 111/62 O2 Sat by Pulse 95 95 96 Oximetry 03/06/19 03/06/19 03/06/19 02:30 02:45 03:00 Temperature Pulse Rate 97 H 99 H 102 H Pulse Rate [ Anterior Throughout] Respiratory 21 25 H 25 H Rate Respiratory Rate [Anterior Throughout] Blood Pressure 119/70 108/51 108/51 O2 Sat by Pulse 94 96 96 Oximetry 03/06/19 03/06/19 03/06/19 03:15 03:30 03:45 Temperature Pulse Rate 99 H 102 H 101 H Pulse Rate [ Anterior Throughout] Respiratory 22 22 24 Rate Respiratory Rate [Anterior Throughout] Blood Pressure 98/59 97/61 104/58 O2 Sat by Pulse 96 92 95 Oximetry 03/06/19 03/06/19 03/06/19 04:00 04:15 04:30 Temperature 98.5 F Pulse Rate 101 H 100 H 100 H Pulse Rate [ Anterior Throughout] Respiratory 25 H 21 25 H Rate Respiratory Rate [Anterior Throughout] Blood Pressure 106/59 110/55 106/58 O2 Sat by Pulse 94 95 94 Oximetry 03/06/19 03/06/19 03/06/19 04:45 05:00 05:09 Temperature Pulse Rate 100 H 98 H 94 H Pulse Rate [ Anterior Throughout] Respiratory 25 H 26 H Rate Respiratory Rate [Anterior Throughout] Blood Pressure 103/58 102/60 102/60 O2 Sat by Pulse 94 94 94 Oximetry 03/06/19 03/06/19 03/06/19 05:15 05:30 05:45 Temperature Pulse Rate 101 H 100 H 99 H Pulse Rate [ Anterior Throughout] Respiratory 25 H 25 H 18 Rate Respiratory Rate [Anterior Throughout] Blood Pressure 104/63 106/60 112/62 O2 Sat by Pulse 94 94 95 Oximetry 03/06/19 03/06/19 06:00 06:15 Temperature Pulse Rate 99 H 99 H Pulse Rate [ Anterior Throughout] Respiratory 16 16 Rate Respiratory Rate [Anterior Throughout] Blood Pressure 111/63 105/66 O2 Sat by Pulse 95 96 Oximetry Constitutional: appears uncomfortable, other (middle aged obese AAF with mildly increased respiratory distress on MVS) Eyes: icteric ENT: other (Small bowel feeding tube in place, 7.[address] 23cm at the lip) Neck: supple, no lymphadenopathy, no JVD, other (Left IJ CVC; large neck circumference) Effort: mildly labored Ascultation: Bilateral: diminished breath sounds, rales Percussion: Bilateral: not dull Cardiovascular: regular rate and rhythm, other (Tachycardia S1,S2, no murmurs. Anterior chest wall dressing) Gastrointestinal: normoactive bowel sounds, soft, non-tender, non-distended Integumentary: other (Chest wall wound) Extremities: no cyanosis, pulses normal, no ischemia or petechiae, edema, other (edema) Neurologic: pupils equal and round, other (sedated, unable to assess) Psychiatric: other (unable to assess re: AMS) CBC and BMP: 03/06/19 04:55 03/06/19 04:55 ABG, PT/INR, D-dimer: ABG POC ABG pH 7.248 (7.35-7.45) L 03/06/19 05:19 ABG pH 7.335 pH Units (7.350-7.450) L 03/03/19 05:25 POC ABG pCO2 65.9 (35-45) H 03/06/19 05:19 ABG pCO2 61.3 mm Hg 03/03/19 05:25 POC ABG pO2 79 (80-105) L 03/06/19 05:19 ABG pO2 89.2 mm Hg (80.0-90.0) 03/03/19 05:25 POC ABG HCO3 28.8 (22-26 mml/L) 03/06/19 05:19 POC ABG Total CO2 31 (23-27mmol/L) 03/06/19 05:19 POC ABG O2 Sat 93 03/06/19 05:19 ABG O2 Saturation 97.0 % (95.0-99.0) 03/03/19 05:25 PT/INR, D-dimer PT 14.8 Sec. (12.2-14.9) 02/27/19 12:38 INR 1.17 (0.87-1.13) H 02/27/19 12:38 D-Dimer 5778.32 ng/mlDDU (0-234) H 02/27/19 12:38 Abnormal lab findings: Abnormal Labs 02/27/19 02/27/19 02/27/19 11:33 11:33 11:33 WBC 18.6 H RBC 3.60 L Hgb 8.7 L Hct 28.8 L MCH 24 L MCHC RDW 23.0 H Plt Count 507 H Lymph % (Auto) 12.9 L [place] # 1.3 H Seg Neutrophils % 79.7 H Seg Neuts % (Manual) Lymphocytes % (Manual) Nucleated RBC % Seg Neutrophils # 14.8 H Seg Neutrophils # Man Lymphocytes # (Manual) INR D-Dimer POC ABG pH ABG pH POC ABG pCO2 POC ABG pO2 ABG pO2 ABG HCO3 ABG O2 Saturation ABG Base Excess ABG Hemoglobin Oxyhemoglobin Sodium Potassium Chloride 96.8 L Carbon Dioxide BUN 28 H Creatinine 0.5 L Glucose 169 H POC Glucose Lactic Acid 3.40 H* Phosphorus Magnesium AST ALT Alkaline Phosphatase Ammonia Total Creatine Kinase 197 H CK-MB (CK-2) 4.1 H NT-Pro-B Natriuret Pep Total Protein Albumin Free T4 Urine Creatinine Urine Chloride Crossmatch 02/27/19 02/27/19 02/27/19 11:33 11:45 11:47 WBC RBC Hgb Hct MCH MCHC RDW Plt Count Lymph % (Auto) [place] # Seg Neutrophils % Seg Neuts % (Manual) Lymphocytes % (Manual) Nucleated RBC % Seg Neutrophils # Seg Neutrophils # Man Lymphocytes # (Manual) INR D-Dimer POC ABG pH ABG pH POC ABG pCO2 POC ABG pO2 ABG pO2 ABG HCO3 ABG O2 Saturation ABG Base Excess ABG Hemoglobin Oxyhemoglobin Sodium Potassium Chloride Carbon Dioxide BUN Creatinine Glucose POC Glucose 169 H Lactic Acid Phosphorus Magnesium AST 95 H ALT Alkaline Phosphatase 130 H Ammonia Total Creatine Kinase CK-MB (CK-2) NT-Pro-B Natriuret Pep Total Protein Albumin 2.9 L Free T4 Urine Creatinine Urine Chloride Crossmatch See Detail 02/27/19 02/27/19 02/27/19 12:30 12:38 14:08 WBC RBC Hgb Hct MCH MCHC RDW Plt Count Lymph % (Auto) [place] # Seg Neutrophils % Seg Neuts % (Manual) Lymphocytes % (Manual) Nucleated RBC % Seg Neutrophils # Seg Neutrophils # Man Lymphocytes # (Manual) INR 1.17 H D-Dimer 5778.32 H POC ABG pH 7.326 L ABG pH POC ABG pCO2 POC ABG pO2 129 H ABG pO2 ABG HCO3 ABG O2 Saturation ABG Base Excess ABG Hemoglobin Oxyhemoglobin Sodium Potassium Chloride Carbon Dioxide BUN Creatinine Glucose POC Glucose Lactic Acid 3.00 H* Phosphorus Magnesium AST ALT Alkaline Phosphatase Ammonia Total Creatine Kinase CK-MB (CK-2) NT-Pro-B Natriuret Pep Total Protein Albumin Free T4 Urine Creatinine Urine Chloride Crossmatch 02/27/19 02/27/19 02/27/19 15:03 16:06 18:08 WBC RBC Hgb Hct MCH MCHC RDW Plt Count Lymph % (Auto) [place] # Seg Neutrophils % Seg Neuts % (Manual) Lymphocytes % (Manual) Nucleated RBC % Seg Neutrophils # Seg Neutrophils # Man Lymphocytes # (Manual) INR D-Dimer POC ABG pH ABG pH POC ABG pCO2 68.8 H POC ABG pO2 225 H ABG pO2 ABG HCO3 ABG O2 Saturation ABG Base Excess ABG Hemoglobin Oxyhemoglobin Sodium Potassium Chloride Carbon Dioxide BUN Creatinine Glucose POC Glucose Lactic Acid 3.20 H* 2.80 H* Phosphorus Magnesium AST ALT Alkaline Phosphatase Ammonia Total Creatine Kinase CK-MB (CK-2) NT-Pro-B Natriuret Pep Total Protein Albumin Free T4 Urine Creatinine Urine Chloride Crossmatch 02/27/19 02/28/19 02/28/19 18:12 10:00 10:00 WBC 13.3 H RBC 3.39 L Hgb 8.1 L Hct 26.7 L MCH 24 L MCHC RDW 22.5 H Plt Count Lymph % (Auto) [place] # Seg Neutrophils % Seg Neuts % (Manual) Lymphocytes % (Manual) Nucleated RBC % Seg Neutrophils # Seg Neutrophils # Man Lymphocytes # (Manual) INR D-Dimer POC ABG pH ABG pH POC ABG pCO2 POC ABG pO2 ABG pO2 ABG HCO3 ABG O2 Saturation ABG Base Excess ABG Hemoglobin Oxyhemoglobin Sodium 146 H Potassium Chloride Carbon Dioxide 32 H BUN 32 H Creatinine 0.5 L Glucose 111 H POC Glucose Lactic Acid 2.30 H* Phosphorus Magnesium AST 93 H ALT Alkaline Phosphatase Ammonia Total Creatine Kinase CK-MB (CK-2) NT-Pro-B Natriuret Pep Total Protein Albumin 2.6 L Free T4 Urine Creatinine Urine Chloride Crossmatch 02/28/19 03/01/19 03/01/19 10:26 00:05 05:00 WBC 20.2 H RBC Hgb 9.0 L Hct 29.9 L MCH 24 L MCHC RDW 22.8 H Plt Count 498 H Lymph % (Auto) [place] # Seg Neutrophils % Seg Neuts % (Manual) Lymphocytes % (Manual) Nucleated RBC % Seg Neutrophils # Seg Neutrophils # Man Lymphocytes # (Manual) INR D-Dimer POC ABG pH ABG pH POC ABG pCO2 54.2 H POC ABG pO2 ABG pO2 ABG HCO3 ABG O2 Saturation ABG Base Excess ABG Hemoglobin Oxyhemoglobin Sodium Potassium Chloride Carbon Dioxide BUN Creatinine Glucose POC Glucose 167 H Lactic Acid Phosphorus Magnesium AST ALT Alkaline Phosphatase Ammonia Total Creatine Kinase CK-MB (CK-2) NT-Pro-B Natriuret Pep Total Protein Albumin Free T4 Urine Creatinine Urine Chloride Crossmatch 03/01/19 03/01/19 03/01/19 05:00 12:36 17:31 WBC RBC Hgb Hct MCH MCHC RDW Plt Count Lymph % (Auto) [place] # Seg Neutrophils % Seg Neuts % (Manual) Lymphocytes % (Manual) Nucleated RBC % Seg Neutrophils # Seg Neutrophils # Man Lymphocytes # (Manual) INR D-Dimer POC ABG pH ABG pH POC ABG pCO2 POC ABG pO2 ABG pO2 ABG HCO3 ABG O2 Saturation ABG Base Excess ABG Hemoglobin Oxyhemoglobin Sodium 148 H Potassium Chloride Carbon Dioxide 37 H BUN 43 H Creatinine 0.6 L Glucose 150 H POC Glucose 140 H 157 H Lactic Acid Phosphorus Magnesium AST ALT Alkaline Phosphatase Ammonia Total Creatine Kinase CK-MB (CK-2) NT-Pro-B Natriuret Pep Total Protein Albumin Free T4 Urine Creatinine Urine Chloride Crossmatch 03/02/19 03/02/19 03/02/19 04:29 04:32 05:27 WBC RBC Hgb Hct MCH MCHC RDW Plt Count Lymph % (Auto) [place] # Seg Neutrophils % Seg Neuts % (Manual) Lymphocytes % (Manual) Nucleated RBC % Seg Neutrophils # Seg Neutrophils # Man Lymphocytes # (Manual) INR D-Dimer POC ABG pH 7.056 L ABG pH POC ABG pCO2 POC ABG pO2 64 L ABG pO2 ABG HCO3 ABG O2 Saturation ABG Base Excess ABG Hemoglobin Oxyhemoglobin Sodium Potassium Chloride Carbon Dioxide BUN Creatinine Glucose POC Glucose 161 H Lactic Acid Phosphorus Magnesium AST ALT Alkaline Phosphatase Ammonia Total Creatine Kinase CK-MB (CK-2) NT-Pro-B Natriuret Pep 2143 H Total Protein Albumin Free T4 Urine Creatinine Urine Chloride Crossmatch 03/02/19 03/02/19 03/02/19 05:27 05:27 05:27 WBC 17.8 H RBC 3.50 L Hgb 8.5 L Hct 29.5 L MCH 24 L MCHC 29 L RDW 21.9 H Plt Count Lymph % (Auto) [place] # Seg Neutrophils % Seg Neuts % (Manual) 94.0 H Lymphocytes % (Manual) 2.0 L Nucleated RBC % 1.0 H Seg Neutrophils # Seg Neutrophils # Man 16.7 H Lymphocytes # (Manual) 0.4 L INR D-Dimer POC ABG pH ABG pH POC ABG pCO2 POC ABG pO2 ABG pO2 ABG HCO3 ABG O2 Saturation ABG Base Excess ABG Hemoglobin Oxyhemoglobin Sodium 156 H D Potassium 5.4 H Chloride 108.6 H Carbon Dioxide 39 H BUN 60 H Creatinine Glucose 159 H POC Glucose Lactic Acid Phosphorus Magnesium AST 164 H ALT Alkaline Phosphatase 164 H Ammonia 81.0 H Total Creatine Kinase CK-MB (CK-2) NT-Pro-B Natriuret Pep Total Protein 6.2 L Albumin 2.2 L Free T4 Urine Creatinine Urine Chloride Crossmatch 03/02/19 03/02/19 03/02/19 05:27 06:04 10:56 WBC RBC Hgb Hct MCH MCHC RDW Plt Count Lymph % (Auto) [place] # Seg Neutrophils % Seg Neuts % (Manual) Lymphocytes % (Manual) Nucleated RBC % Seg Neutrophils # Seg Neutrophils # Man Lymphocytes # (Manual) INR D-Dimer POC ABG pH ABG pH 7.239 L POC ABG pCO2 POC ABG pO2 ABG pO2 60.0 L 103.9 H ABG HCO3 36.6 H 32.9 H ABG O2 Saturation 88.3 L ABG Base Excess 7.3 H 7.7 H ABG Hemoglobin 9.1 L 9.0 L Oxyhemoglobin 86.3 L Sodium Potassium Chloride Carbon Dioxide BUN Creatinine Glucose POC Glucose Lactic Acid Phosphorus 6.90 H Magnesium 2.80 H AST ALT Alkaline Phosphatase Ammonia Total Creatine Kinase CK-MB (CK-2) NT-Pro-B Natriuret Pep Total Protein Albumin Free T4 Urine Creatinine Urine Chloride Crossmatch 03/02/19 03/02/19 03/02/19 13:58 23:40 Unknown WBC RBC Hgb Hct MCH MCHC RDW Plt Count Lymph % (Auto) [place] # Seg Neutrophils % Seg Neuts % (Manual) Lymphocytes % (Manual) Nucleated RBC % Seg Neutrophils # Seg Neutrophils # Man Lymphocytes # (Manual) INR D-Dimer POC ABG pH ABG pH POC ABG pCO2 POC ABG pO2 ABG pO2 ABG HCO3 ABG O2 Saturation ABG Base Excess ABG Hemoglobin Oxyhemoglobin Sodium Potassium Chloride Carbon Dioxide BUN Creatinine Glucose POC Glucose 127 H 161 H Lactic Acid Phosphorus Magnesium AST ALT Alkaline Phosphatase Ammonia Total Creatine Kinase CK-MB (CK-2) NT-Pro-B Natriuret Pep Total Protein Albumin Free T4 Urine Creatinine 218.2 H Urine Chloride Crossmatch 03/03/19 03/03/19 03/03/19 05:00 05:00 05:25 WBC 17.8 H RBC 3.62 L Hgb 8.8 L Hct 28.9 L MCH 24 L MCHC RDW 22.8 H Plt Count Lymph % (Auto) [place] # Seg Neutrophils % Seg Neuts % (Manual) 96.0 H Lymphocytes % (Manual) 1.0 L Nucleated RBC % 3.0 H Seg Neutrophils # Seg Neutrophils # Man 17.1 H Lymphocytes # (Manual) 0.2 L INR D-Dimer POC ABG pH ABG pH 7.335 L POC ABG pCO2 POC ABG pO2 ABG pO2 ABG HCO3 32.0 H ABG O2 Saturation ABG Base Excess 5.2 H ABG Hemoglobin 8.2 L Oxyhemoglobin 94.9 L Sodium 160 H Potassium 3.5 L D Chloride 113.7 H Carbon Dioxide BUN 90 H Creatinine 1.7 H D Glucose 149 H POC Glucose Lactic Acid Phosphorus Magnesium 2.90 H AST 624 H ALT 211 H Alkaline Phosphatase 416 H Ammonia Total Creatine Kinase CK-MB (CK-2) NT-Pro-B Natriuret Pep Total Protein 6.2 L Albumin 2.2 L Free T4 Urine Creatinine Urine Chloride Crossmatch 03/03/19 03/03/19 03/03/19 05:41 12:27 15:54 WBC RBC Hgb Hct MCH MCHC RDW Plt Count Lymph % (Auto) [place] # Seg Neutrophils % Seg Neuts % (Manual) Lymphocytes % (Manual) Nucleated RBC % Seg Neutrophils # Seg Neutrophils # Man Lymphocytes # (Manual) INR D-Dimer POC ABG pH ABG pH POC ABG pCO2 POC ABG pO2 ABG pO2 ABG HCO3 ABG O2 Saturation ABG Base Excess ABG Hemoglobin Oxyhemoglobin Sodium Potassium Chloride Carbon Dioxide BUN Creatinine Glucose POC Glucose 150 H 167 H Lactic Acid Phosphorus Magnesium AST ALT Alkaline Phosphatase Ammonia Total Creatine Kinase CK-MB (CK-2) NT-Pro-B Natriuret Pep Total Protein Albumin Free T4 0.50 L Urine Creatinine Urine Chloride Crossmatch 03/03/19 03/03/19 03/04/19 17:32 23:57 04:11 WBC RBC Hgb Hct MCH MCHC RDW Plt Count Lymph % (Auto) [place] # Seg Neutrophils % Seg Neuts % (Manual) Lymphocytes % (Manual) Nucleated RBC % Seg Neutrophils # Seg Neutrophils # Man Lymphocytes # (Manual) INR D-Dimer POC ABG pH 7.332 L ABG pH POC ABG pCO2 57.1 H POC ABG pO2 ABG pO2 ABG HCO3 ABG O2 Saturation ABG Base Excess ABG Hemoglobin Oxyhemoglobin Sodium Potassium Chloride Carbon Dioxide BUN Creatinine Glucose POC Glucose 165 H 202 H Lactic Acid Phosphorus Magnesium AST ALT Alkaline Phosphatase Ammonia Total Creatine Kinase CK-MB (CK-2) NT-Pro-B Natriuret Pep Total Protein Albumin Free T4 Urine Creatinine Urine Chloride Crossmatch 03/04/19 03/04/19 03/04/19 04:38 04:38 05:30 WBC 23.0 H RBC 3.36 L Hgb 7.9 L Hct 26.6 L MCH 24 L MCHC RDW 23.1 H Plt Count Lymph % (Auto) [place] # Seg Neutrophils % Seg Neuts % (Manual) 98.0 H Lymphocytes % (Manual) 0 L Nucleated RBC % Seg Neutrophils # Seg Neutrophils # Man 22.5 H Lymphocytes # (Manual) 0.0 L INR D-Dimer POC ABG pH ABG pH POC ABG pCO2 POC ABG pO2 ABG pO2 ABG HCO3 ABG O2 Saturation ABG Base Excess ABG Hemoglobin Oxyhemoglobin Sodium 151 H D Potassium Chloride 110.4 H Carbon Dioxide BUN 103 H Creatinine 2.0 H Glucose 177 H POC Glucose 172 H Lactic Acid Phosphorus Magnesium AST 244 H ALT 159 H Alkaline Phosphatase 365 H Ammonia Total Creatine Kinase CK-MB (CK-2) NT-Pro-B Natriuret Pep Total Protein 5.9 L Albumin 2.1 L Free T4 Urine Creatinine Urine Chloride Crossmatch 03/04/19 03/04/19 03/04/19 12:10 12:39 18:11 WBC RBC Hgb Hct MCH MCHC RDW Plt Count Lymph % (Auto) [place] # Seg Neutrophils % Seg Neuts % (Manual) Lymphocytes % (Manual) Nucleated RBC % Seg Neutrophils # Seg Neutrophils # Man Lymphocytes # (Manual) INR D-Dimer POC ABG pH ABG pH POC ABG pCO2 POC ABG pO2 ABG pO2 ABG HCO3 ABG O2 Saturation ABG Base Excess ABG Hemoglobin Oxyhemoglobin Sodium Potassium Chloride Carbon Dioxide BUN Creatinine Glucose POC Glucose 226 H 173 H Lactic Acid Phosphorus Magnesium AST ALT Alkaline Phosphatase Ammonia Total Creatine Kinase CK-MB (CK-2) NT-Pro-B Natriuret Pep Total Protein Albumin Free T4 Urine Creatinine 185.9 H Urine Chloride 10.2 L Crossmatch 03/04/19 03/05/19 03/05/19 23:24 04:16 04:28 WBC 23.8 H RBC 3.08 L Hgb 7.5 L Hct 25.0 L MCH 24 L MCHC RDW 23.0 H Plt Count Lymph % (Auto) [place] # Seg Neutrophils % Seg Neuts % (Manual) 96.0 H Lymphocytes % (Manual) 3.0 L Nucleated RBC % 1.0 H Seg Neutrophils # Seg Neutrophils # Man 22.8 H Lymphocytes # (Manual) 0.7 L INR D-Dimer POC ABG pH 7.274 L ABG pH POC ABG pCO2 59.7 H POC ABG pO2 107 H ABG pO2 ABG HCO3 ABG O2 Saturation ABG Base Excess ABG Hemoglobin Oxyhemoglobin Sodium Potassium Chloride Carbon Dioxide BUN Creatinine Glucose POC Glucose 184 H Lactic Acid Phosphorus Magnesium AST ALT Alkaline Phosphatase Ammonia Total Creatine Kinase CK-MB (CK-2) NT-Pro-B Natriuret Pep Total Protein Albumin Free T4 Urine Creatinine Urine Chloride Crossmatch 03/05/19 03/05/19 03/05/19 04:28 04:28 05:29 WBC RBC Hgb Hct MCH MCHC RDW Plt Count Lymph % (Auto) [place] # Seg Neutrophils % Seg Neuts % (Manual) Lymphocytes % (Manual) Nucleated RBC % Seg Neutrophils # Seg Neutrophils # Man Lymphocytes # (Manual) INR D-Dimer POC ABG pH ABG pH POC ABG pCO2 POC ABG pO2 ABG pO2 ABG HCO3 ABG O2 Saturation ABG Base Excess ABG Hemoglobin Oxyhemoglobin Sodium 147 H Potassium Chloride 107.9 H Carbon Dioxide BUN 112 H Creatinine 2.3 H Glucose 153 H POC Glucose 147 H Lactic Acid Phosphorus Magnesium AST 188 H ALT 138 H Alkaline Phosphatase 384 H Ammonia 71.0 H Total Creatine Kinase CK-MB (CK-2) NT-Pro-B Natriuret Pep Total Protein 6.0 L Albumin 2.2 L Free T4 Urine Creatinine Urine Chloride Crossmatch 03/05/19 03/05/19 03/05/19 12:00 17:44 23:48 WBC RBC Hgb Hct MCH MCHC RDW Plt Count Lymph % (Auto) [place] # Seg Neutrophils % Seg Neuts % (Manual) Lymphocytes % (Manual) Nucleated RBC % Seg Neutrophils # Seg Neutrophils # Man Lymphocytes # (Manual) INR D-Dimer POC ABG pH ABG pH POC ABG pCO2 POC ABG pO2 ABG pO2 ABG HCO3 ABG O2 Saturation ABG Base Excess ABG Hemoglobin Oxyhemoglobin Sodium Potassium Chloride Carbon Dioxide BUN Creatinine Glucose POC Glucose 181 H 111 H 120 H Lactic Acid Phosphorus Magnesium AST ALT Alkaline Phosphatase Ammonia Total Creatine Kinase CK-MB (CK-2) NT-Pro-B Natriuret Pep Total Protein Albumin Free T4 Urine Creatinine Urine Chloride Crossmatch 03/06/19 03/06/19 03/06/19 04:55 04:55 05:19 WBC 26.5 H RBC 3.28 L Hgb 7.7 L Hct 26.4 L MCH 24 L MCHC 29 L RDW 23.0 H Plt Count Lymph % (Auto) [place] # Seg Neutrophils % Seg Neuts % (Manual) Lymphocytes % (Manual) Nucleated RBC % Seg Neutrophils # Seg Neutrophils # Man Lymphocytes # (Manual) INR D-Dimer POC ABG pH 7.248 L ABG pH POC ABG pCO2 65.9 H POC ABG pO2 79 L ABG pO2 ABG HCO3 ABG O2 Saturation ABG Base Excess ABG Hemoglobin Oxyhemoglobin Sodium 147 H Potassium Chloride Carbon Dioxide BUN 132 H Creatinine 2.6 H Glucose 128 H POC Glucose Lactic Acid Phosphorus Magnesium AST 207 H ALT 144 H Alkaline Phosphatase 529 H Ammonia Total Creatine Kinase CK-MB (CK-2) NT-Pro-B Natriuret Pep Total Protein 6.1 L Albumin 2.4 L Free T4 Urine Creatinine Urine Chloride Crossmatch 03/06/19 05:35 WBC RBC Hgb Hct MCH MCHC RDW Plt Count Lymph % (Auto) [place] # Seg Neutrophils % Seg Neuts % (Manual) Lymphocytes % (Manual) Nucleated RBC % Seg Neutrophils # Seg Neutrophils # Man Lymphocytes # (Manual) INR D-Dimer POC ABG pH ABG pH POC ABG pCO2 POC ABG pO2 ABG pO2 ABG HCO3 ABG O2 Saturation ABG Base Excess ABG Hemoglobin Oxyhemoglobin Sodium Potassium Chloride Carbon Dioxide BUN Creatinine Glucose POC Glucose 113 H Lactic Acid Phosphorus Magnesium AST ALT Alkaline Phosphatase Ammonia Total Creatine Kinase CK-MB (CK-2) NT-Pro-B Natriuret Pep Total Protein Albumin Free T4 Urine Creatinine Urine Chloride Crossmatch Chest x-ray: image reviewed (persistent bilateral infiltrates and R > L effusion; ETT in good position) Allied health notes reviewed: RT
[2019-03-06] MEDS: IPRATROPIUM/ALBUTEROL SULFATE 3 ML AMPUL.NEB IH SCH ×3 (08:04→19:24)
[2019-03-06 08:51] LABS: Anisocytosis 1+; Basophils % (Manual) 0 % (0.0-1.8); Eosinophils % (Manual) 0 % (0.0-4.3); Hypochromasia 1+; Monocytes % (Manual) 0 % (0.0-7.3); Target Cells Rare; Total Cells Counted 100
[2019-03-06 08:52] LABS: Large Platelets Rare; Platelet Estimate Consistent w Auto
[2019-03-06] MEDS: ENOXAPARIN 30 MG/0.3 ML INJ SUB-Q SCH (09:23)
[2019-03-06] MEDS: FAMOTIDINE 20 MG TAB PO SCH (09:23)
[2019-03-06] MEDS: MEROPENEM/NS 1 GRAM/100 ML 1 GRAM/100 ML BAG IV SCH ×2 (09:23→22:08)
[2019-03-06] MEDS: LACTULOSE 20 GM/30 ML ORAL LIQD PO SCH ×2 (09:23→22:07)
--- NOTE | 2019-03-06 10:11 | Progress Note ---
Assessment and Plan Cultures: Blood culture 02/27/19 no growth to date Urine culture 02/27/19 no growth to date Throacentesis culture 02/28/19 - no growth, no orgs on gram stain. 03/02/2019 sputum: olive albicans Assessment: 49 yo F PMHx metastatic breast cancer admitted with worsening shortness of breath. 1. Acute sepsis with shock - with tachycardia and leukocytosis. Likely secondary to pneumonia. Breast wound looks clean. 2. B/L Pneumonia - difficult to tell with imaging. S/P thoracentesis, no growth on culture. Sputum with Olive - colonization. 3. Large breast wound - no obvious purulence and family denies any issues with the wound at this time. Obvious risk for infection, but at present appears st able. 4. Metastatic breast cancer 5. SELAM: Creatinine worsening. Renally adjust abx. Nephrology following 6. Worsening LFTs and alkaline phosphatase, bilirubin normal. ?shock liver v/s mets. RUQ US pending Recs: Continue IV Meropenem, renally adjusted D3 today f/u RUQ US pending Overall extremely poor prognosis Sebastien Perkins MD, FACP [facility] ([facility] M: [phone] O: [phone] F: [phone] Subjective Date of service: 03/06/19 Principal diagnosis: Ac. hypoxemic resp failure; Sev Sepsis; R. pleural effusion; Met. breast CA Interval history: Remains afebrile and off pressors. Sedated, intubated. Discussed with RN. Objective - Exam Narrative Exam: Physical Exam: Constitutional: sedated, intubated Head, Ears, Nose: Normocephalic, atraumatic. External ears, nose normal Eyes: Conjunctivae/corneas clear. No icterus. No ptosis. Neck: intubated Oral: intubated Cardiovascular: S1, S2 normal. Respiratory: Good air entry, clear to auscultation bilaterally GI: Soft, non-tender; bowel sounds normal. No peritoneal signs Musculoskeletal: No pedal edema, no cyanosis. Skin: large left breast wound + with dressing Hem/Lymphatic: No palpable cervical or supraclavicular nodes. No lymphangitis Psych: sedated Neurological: sedated, intubated, on vent - Constitutional Vitals: Vital Signs Temp Pulse Resp BP Pulse Ox 98.5 F 94 H 19 109/63 97 03/06/19 04:00 03/06/19 08:15 03/06/19 08:15 03/06/19 08:15 03/06/19 08:15 Temperature -Last 24 Hours Temperature 98.5 F Temperature 98.8 F Temperature 98.8 F Temperature 98.0 F Temperature 98.7 F Temperature 98.7 F Temperature 98.2 F - Labs CBC & Chem 7: 03/06/19 04:55 03/06/19 04:55 Labs: Abnormal lab results 03/05/19 03/05/19 03/05/19 Range/Units 12:00 17:44 23:48 WBC (4.5-11.0) K/mm3 RBC (3.65-5.03) M/mm3 Hgb (10.1-14.3) gm/dl Hct (30.3-42.9) % MCH (28-32) pg MCHC (30-34) % RDW (13.2-15.2) % Seg Neuts % (Manual) (40.0-70.0) % Lymphocytes % (Manual) (13.4-35.0) % Nucleated RBC % (0.0-0.9) % Seg Neutrophils # Man (1.8-7.7) K/mm3 Lymphocytes # (Manual) (1.2-5.4) K/mm3 POC ABG pH (7.35-7.45) POC ABG pCO2 (35-45) POC ABG pO2 (80-105) Sodium (137-145) mmol/L BUN (7-17) mg/dL Creatinine (0.7-1.2) mg/dL Glucose (65-100) mg/dL POC Glucose 181 H 111 H 120 H (70-105) AST (5-40) units/L ALT (7-56) units/L Alkaline Phosphatase (35-129) units/L Total Protein (6.3-8.2) g/dL Albumin (3.9-5) g/dL 03/06/19 03/06/19 03/06/19 Range/Units 04:55 04:55 05:19 WBC 26.5 H (4.5-11.0) K/mm3 RBC 3.28 L (3.65-5.03) M/mm3 Hgb 7.7 L (10.1-14.3) gm/dl Hct 26.4 L (30.3-42.9) % MCH 24 L (28-32) pg MCHC 29 L (30-34) % RDW 23.0 H (13.2-15.2) % Seg Neuts % (Manual) 98.0 H (40.0-70.0) % Lymphocytes % (Manual) 2.0 L (13.4-35.0) % Nucleated RBC % 2.0 H (0.0-0.9) % Seg Neutrophils # Man 26.0 H (1.8-7.7) K/mm3 Lymphocytes # (Manual) 0.5 L (1.2-5.4) K/mm3 POC ABG pH 7.248 L (7.35-7.45) POC ABG pCO2 65.9 H (35-45) POC ABG pO2 79 L (80-105) Sodium 147 H (137-145) mmol/L BUN 132 H (7-17) mg/dL Creatinine 2.6 H (0.7-1.2) mg/dL Glucose 128 H (65-100) mg/dL POC Glucose (70-105) AST 207 H (5-40) units/L ALT 144 H (7-56) units/L Alkaline Phosphatase 529 H (35-129) units/L Total Protein 6.1 L (6.3-8.2) g/dL Albumin 2.4 L (3.9-5) g/dL 03/06/19 Range/Units 05:35 WBC (4.5-11.0) K/mm3 RBC (3.65-5.03) M/mm3 Hgb (10.1-14.3) gm/dl Hct (30.3-42.9) % MCH (28-32) pg MCHC (30-34) % RDW (13.2-15.2) % Seg Neuts % (Manual) (40.0-70.0) % Lymphocytes % (Manual) (13.4-35.0) % Nucleated RBC % (0.0-0.9) % Seg Neutrophils # Man (1.8-7.7) K/mm3 Lymphocytes # (Manual) (1.2-5.4) K/mm3 POC ABG pH (7.35-7.45) POC ABG pCO2 (35-45) POC ABG pO2 (80-105) Sodium (137-145) mmol/L BUN (7-17) mg/dL Creatinine (0.7-1.2) mg/dL Glucose (65-100) mg/dL POC Glucose 113 H (70-105) AST (5-40) units/L ALT (7-56) units/L Alkaline Phosphatase (35-129) units/L Total Protein (6.3-8.2) g/dL Albumin (3.9-5) g/dL - Imaging and cardiology Chest x-ray: report reviewed, image reviewed (diffuse airspace disease bilaterally)
[2019-03-06] MEDS: PROPOFOL 1,000 MG/100 ML BOTTLE IV SCH ×2 (12:45→22:06)
[2019-03-06] MEDS ORDERED: PROPOFOL 1,000 MG/100 ML BOTTLE IV ONE (12:48)
--- NOTE | 2019-03-06 12:50 | Progress Note ---
Assessment and Plan Assessment and plan: - Acute respiratory failure with hypoxia. Intubated and on MVS 03/01/19 Pulmonary following - Sepsis with shock. Continue per ID recommendation. Continue IV Meropenem, - Bilateral pneumonia Throacentesis culture 02/28/19 - no growth, no orgs on gram stain. 03/02/2019 sputum: gianfranco albicans ID following - Recurrent malignant pleural effusion s/p thoracentesis - Left breast cancer with mets to the bones and liver s/p surgery Dr. Self following [facility]. - ? Heart failure Echocardiogram revealed left ventricular size normal with no pericardial effusion Shock liver -Elevated LFTs and alkaline phosphatase. Right upper quadrant ultrasound pending - Hyperammonemia Cont lactulose as needed - Hypernatrmia Free water via [place] - Hypertension Monitor BP - ELevated D- dimer CT angio was negative for PE - Poor prognosis. The high probability of a clinically significant, sudden or life threatening deterioration of the [inspiratory neurological] system(s) required my full and direct attention, intervention and personal management. The aggregate critical care time was [32] minutes. This time is in addition to time spent performing reported procedures but includes the following: [x] Data Review and interpretation [x] Patient assessment and monitoring of vital signs [x] Documentation [x] Medication orders and management History Interval history: No new issues overnight. Hospitalist Physical - Constitutional Vitals: Temp Pulse Resp BP Pulse Ox 96.8 F L 92 H 27 H 111/60 100 03/06/19 08:00 03/06/19 11:27 03/06/19 10:00 03/06/19 11:27 03/06/19 11:27 General appearance: Present: other (intubated) - EENT Eyes: Present: PERRL, EOM intact ENT: hearing intact, clear oral mucosa, dentition normal - Neck Neck: Present: supple, normal ROM - Respiratory Respiratory effort: normal Respiratory: bilateral: CTA - Cardiovascular Rhythm: regular Heart Sounds: Present: S1 & S2. Absent: gallop, rub - Extremities Extremities: no ischemia, No edema, Full ROM - Abdominal General gastrointestinal: soft, non-tender, non-distended, normal bowel sounds - Integumentary Integumentary: Present: clear, warm, dry - Neurologic Neurologic: CNII-XII intact, moves all extremities Results - Labs CBC & Chem 7: 03/06/19 04:55 03/06/19 04:55 Labs: Laboratory Last Values WBC 26.5 K/mm3 (4.5-11.0) H 03/06/19 04:55 RBC 3.28 M/mm3 (3.65-5.03) L 03/06/19 04:55 Hgb 7.7 gm/dl (10.1-14.3) L 03/06/19 04:55 Hct 26.4 % (30.3-42.9) L 03/06/19 04:55 MCV 81 fl (79-97) 03/06/19 04:55 MCH 24 pg (28-32) L 03/06/19 04:55 MCHC 29 % (30-34) L 03/06/19 04:55 RDW 23.0 % (13.2-15.2) H 03/06/19 04:55 Plt Count 272 K/mm3 (140-440) 03/06/19 04:55 Lymph % (Auto) [place] 03/04/19 04:38 [place] % (Auto) [place] 03/04/19 04:38 Eos % (Auto) [place] 03/04/19 04:38 Baso % (Auto) [place] 03/04/19 04:38 Lymph # [place] 03/04/19 04:38 Rice # [place] 03/04/19 04:38 Eos # [place] 03/04/19 04:38 Baso # [place] 03/04/19 04:38 Add Manual Diff Complete 03/06/19 04:55 Total Counted 100 03/06/19 04:55 Seg Neutrophils % [place] 03/06/19 04:55 Seg Neuts % (Manual) 98.0 % (40.0-70.0) H 03/06/19 04:55 Band Neutrophils % 0 % 03/06/19 04:55 Lymphocytes % (Manual) 2.0 % (13.4-35.0) L 03/06/19 04:55 Reactive Lymphs % (Man) 0 % 03/06/19 04:55 Monocytes % (Manual) 0 % (0.0-7.3) 03/06/19 04:55 Eosinophils % (Manual) 0 % (0.0-4.3) 03/06/19 04:55 Basophils % (Manual) 0 % (0.0-1.8) 03/06/19 04:55 Metamyelocytes % 0 % 03/06/19 04:55 Myelocytes % 0 % 03/06/19 04:55 Promyelocytes % 0 % 03/06/19 04:55 Blast Cells % 0 % 03/06/19 04:55 Nucleated RBC % 2.0 % (0.0-0.9) H 03/06/19 04:55 Seg Neutrophils # [place] 03/04/19 04:38 Seg Neutrophils # Man 26.0 K/mm3 (1.8-7.7) H 03/06/19 04:55 Band Neutrophils # 0.0 K/mm3 03/06/19 04:55 Lymphocytes # (Manual) 0.5 K/mm3 (1.2-5.4) L 03/06/19 04:55 Abs React Lymphs (Man) 0.0 K/mm3 03/06/19 04:55 Monocytes # (Manual) 0.0 K/mm3 (0.0-0.8) 03/06/19 04:55 Eosinophils # (Manual) 0.0 K/mm3 (0.0-0.4) 03/06/19 04:55 Basophils # (Manual) 0.0 K/mm3 (0.0-0.1) 03/06/19 04:55 Metamyelocytes # 0.0 K/mm3 03/06/19 04:55 Myelocytes # 0.0 K/mm3 03/06/19 04:55 Promyelocytes # 0.0 K/mm3 03/06/19 04:55 Blast Cells # 0.0 K/mm3 03/06/19 04:55 WBC Morphology Not Reportable 03/06/19 04:55 Hypersegmented Neuts Not Reportable 03/06/19 04:55 Hyposegmented Neuts Not Reportable 03/06/19 04:55 Hypogranular Neuts Not Reportable 03/06/19 04:55 Smudge Cells Not Reportable 03/06/19 04:55 Toxic Granulation Not Reportable 03/06/19 04:55 Toxic Vacuolation Not Reportable 03/06/19 04:55 Dohle Bodies Not Reportable 03/06/19 04:55 Pelger-Huet Anomaly Not Reportable 03/06/19 04:55 Amelie Rods Not Reportable 03/06/19 04:55 Platelet Estimate Consistent w auto 03/06/19 04:55 Clumped Platelets Not Reportable 03/06/19 04:55 Plt Clumps, EDTA Not Reportable 03/06/19 04:55 Large Platelets Rare 03/06/19 04:55 Giant Platelets Not Reportable 03/06/19 04:55 Platelet Satelliting Not Reportable 03/06/19 04:55 Plt Morphology Comment Not Reportable 03/06/19 04:55 RBC Morphology Not Reportable 03/06/19 04:55 Dimorphic RBCs Not Reportable 03/06/19 04:55 Polychromasia Not Reportable 03/06/19 04:55 Hypochromasia 1+ 03/06/19 04:55 Poikilocytosis Not Reportable 03/06/19 04:55 Anisocytosis 1+ 03/06/19 04:55 Microcytosis Not Reportable 03/06/19 04:55 Macrocytosis Not Reportable 03/06/19 04:55 Spherocytes Not Reportable 03/06/19 04:55 Pappenheimer Bodies Not Reportable 03/06/19 04:55 Sickle Cells Not Reportable 03/06/19 04:55 Target Cells Rare 03/06/19 04:55 Tear Drop Cells Not Reportable 03/06/19 04:55 Ovalocytes Not Reportable 03/06/19 04:55 Stomatocytes 1+ 03/03/19 05:00 Helmet Cells Not Reportable 03/06/19 04:55 Massey-Cosby Bodies Not Reportable 03/06/19 04:55 [place] Rings Not Reportable 03/06/19 04:55 [place] Cells Not Reportable 03/06/19 04:55 Bite Cells Not Reportable 03/06/19 04:55 Crenated Cell Not Reportable 03/06/19 04:55 Elliptocytes Not Reportable 03/06/19 04:55 Acanthocytes (Spur) Not Reportable 03/06/19 04:55 Rouleaux Not Reportable 03/06/19 04:55 Hemoglobin C Crystals Not Reportable 03/06/19 04:55 Schistocytes Not Reportable 03/06/19 04:55 Malaria parasites Not Reportable 03/06/19 04:55 Jose Bodies Not Reportable 03/06/19 04:55 Hem Pathologist Commnt No 03/06/19 04:55 PT 14.8 Sec. (12.2-14.9) 02/27/19 12:38 INR 1.17 (0.87-1.13) H 02/27/19 12:38 APTT 26.9 Sec. (24.2-36.6) 02/27/19 12:38 D-Dimer 5778.32 ng/mlDDU (0-234) H 02/27/19 12:38 POC ABG pH 7.248 (7.35-7.45) L 03/06/19 05:19 ABG pH 7.335 pH Units (7.350-7.450) L 03/03/19 05:25 POC ABG pCO2 65.9 (35-45) H 03/06/19 05:19 ABG pCO2 61.3 mm Hg 03/03/19 05:25 POC ABG pO2 79 (80-105) L 03/06/19 05:19 ABG pO2 89.2 mm Hg (80.0-90.0) 03/03/19 05:25 POC ABG HCO3 28.8 (22-26 mml/L) 03/06/19 05:19 ABG HCO3 32.0 mmol/L (20.0-26.0) H 03/03/19 05:25 POC ABG Total CO2 31 (23-27mmol/L) 03/06/19 05:19 POC ABG O2 Sat 93 03/06/19 05:19 ABG O2 Saturation 97.0 % (95.0-99.0) 03/03/19 05:25 ABG O2 Content 11.1 (0.0-44) 03/03/19 05:25 POC ABG Base Excess 2 ((-2) - (+3)mmol/L) 03/06/19 05:19 ABG Base Excess 5.2 mmol/L (-2.0-3.0) H 03/03/19 05:25 ABG Hemoglobin 8.2 gm/dl (12.0-16.0) L 03/03/19 05:25 ABG Carboxyhemoglobin 1.7 % (0.0-5.0) 03/03/19 05:25 ABG Methemoglobin 0.5 % (0.0-1.5) 03/03/19 05:25 Oxyhemoglobin 94.9 % (95.0-99.0) L 03/03/19 05:25 FiO2 80 % 03/06/19 05:19 Sodium 147 mmol/L (137-145) H 03/06/19 04:55 Potassium 5.0 mmol/L (3.6-5.0) 03/06/19 04:55 Chloride 106.0 mmol/L (98-107) 03/06/19 04:55 Carbon Dioxide 26 mmol/L (22-30) 03/06/19 04:55 Anion Gap 20 mmol/L 03/06/19 04:55 BUN 132 mg/dL (7-17) H 03/06/19 04:55 Creatinine 2.6 mg/dL (0.7-1.2) H 03/06/19 04:55 Estimated GFR 23 ml/min 03/06/19 04:55 BUN/Creatinine Ratio 51 % 03/06/19 04:55 Glucose 128 mg/dL (65-100) H 03/06/19 04:55 POC Glucose 113 (70-105) H 03/06/19 05:35 Lactic Acid 2.30 mmol/L (0.7-2.0) H* 02/27/19 18:12 Calcium 9.3 mg/dL (8.4-10.2) 03/06/19 04:55 Phosphorus 3.30 mg/dL (2.5-4.5) D 03/03/19 05:00 Magnesium 2.90 mg/dL (1.7-2.3) H 03/03/19 05:00 Total Bilirubin < 0.20 mg/dL (0.1-1.2) 03/06/19 04:55 Direct Bilirubin < 0.2 mg/dL (0-0.2) 02/27/19 11:33 Indirect Bilirubin 0.0 mg/dL 02/27/19 11:33 AST 207 units/L (5-40) H 03/06/19 04:55 ALT 144 units/L (7-56) H 03/06/19 04:55 Alkaline Phosphatase 529 units/L (35-129) H 03/06/19 04:55 Ammonia 51.0 umol/L (25-60) 03/06/19 04:55 Total Creatine Kinase 197 units/L (30-135) H 02/27/19 11:33 CK-MB (CK-2) 4.1 ng/mL (0.0-4.0) H 02/27/19 11:33 CK-MB (CK-2) Rel Index 2.0 (0-4) 02/27/19 11:33 Troponin T 0.027 ng/mL (0.00-0.029) 03/02/19 05:27 NT-Pro-B Natriuret Pep 2143 pg/mL (0-900) H 03/02/19 05:27 Total Protein 6.1 g/dL (6.3-8.2) L 03/06/19 04:55 Albumin 2.4 g/dL (3.9-5) L 03/06/19 04:55 Albumin/Globulin Ratio 0.6 % 03/06/19 04:55 Procalcitonin 2.22 ng/mL (<0.15) 03/02/19 17:00 TSH 0.427 mlU/mL (0.270-4.200) 03/03/19 15:54 Free T4 0.50 ng/dL (0.76-1.46) L 03/03/19 15:54 Urine Color [place] (Yellow) 03/04/19 12:39 Urine Turbidity Turbid (Clear) 03/04/19 12:39 Urine pH 5.0 (5.0-7.0) 03/04/19 12:39 Ur Specific [place] 1.023 (1.003-1.030) 03/04/19 12:39 Urine Protein 30 mg/dl mg/dL (Negative) 03/04/19 12:39 Urine Glucose (UA) Neg mg/dL (Negative) 03/04/19 12:39 Urine Ketones Tr mg/dL (Negative) 03/04/19 12:39 Urine Blood Mod (Negative) 03/04/19 12:39 Urine Nitrite Neg (Negative) 03/04/19 12:39 Urine Bilirubin Neg (Negative) 03/04/19 12:39 Urine Urobilinogen < 2.0 mg/dL (<2.0) 03/04/19 12:39 Ur Leukocyte Esterase Neg (Negative) 03/04/19 12:39 Urine WBC (Auto) 2.0 /HPF (0.0-6.0) 03/04/19 12:39 Urine RBC (Auto) 3.0 /HPF (0.0-6.0) 03/04/19 12:39 U Epithel Cells (Auto) 1.0 /HPF (0-13.0) 02/27/19 Unknown Urine Bacteria (Auto) 1+ /HPF (Negative) 03/04/19 12:39 WBC Casts 1 /LPF 02/27/19 Unknown Urine Mucus Few /HPF 03/04/19 12:39 Urine Creatinine 185.9 mg/dL (0.1-20.0) H 03/04/19 12:39 Urine Sodium 13 mmol/L 03/04/19 12:39 Urine Chloride 10.2 mmolL (110-250) L 03/04/19 12:39 Blood Type O POSITIVE 02/27/19 11:45 Antibody Screen Negative 02/27/19 11:45 Crossmatch See Detail 02/27/19 11:45 Active Medications - Current Medications Current Medications: Generic Name Dose Route Start Last Admin Trade Name Freq PRN Reason Stop Dose Admin Acetaminophen 650 mg 03/02/19 13:46 03/02/19 15:38 Tylenol PO 650 mg Q6H PRN Administration Fever >101 Albuterol 2.5 mg 02/27/19 21:08 02/28/19 12:35 Proventil IH 2.5 mg Q4HRT PRN Administration Shortness Of Breath Albuterol/Ipratropium 1 ampul 02/28/19 08:00 03/06/19 08:04 Duoneb *Not For Prn Use* IH 1 ampul TIDRT MANISH Administration Lipase/Protease/Amylase 1 each 03/03/19 08:54 Pancreazyenny Zamora 10,500 Unit FEEDTUBE PRN PRN For Clogged Feeding Tube Enoxaparin Sodium 30 mg 03/04/19 10:00 03/06/19 09:23 Enoxaparin SUB-Q 30 mg QDAY MANISH Administration Famotidine 20 mg 03/05/19 10:00 03/06/19 09:23 Pepcid PO 20 mg DAILY MANISH Administration Hydrophilic Ointment 1 applic 03/02/19 04:40 Vaseline Lip Therapy TP Q2HR PRN Dry Lips Norepinephrine 4 mg in 250 mls @ 7.5 mls/hr 03/02/19 05:00 03/04/19 14:46 Levophed Drip 4 Mg/Ns 250 Ml IV 0 mcg/min TITR MANISH 0 mls/hr Titration Protocol 2 MCG/MIN Vasopressin 20 unit/ Sodium 101 mls @ 9.09 mls/hr 03/02/19 05:00 03/05/19 10:32 Chloride IV 0 units/min TITR MANISH 0 mls/hr Titration Protocol 0.03 UNITS/MIN Fentanyl Citrate 2,000 mcg in 100 mls @ 4.64 mls/hr 03/02/19 17:00 03/06/19 08:14 Fentanyl Drip Premix IV 2 mcg/kg/hr TITR MANISH 9.28 mls/hr Administration Protocol 1 MCG/KG/HR MEROPENEM/NS 1 GRAM/100 ML 1 gram in 100 mls @ 100 mls/hr 03/04/19 14:00 03/06/19 09:23 Merrem/Ns 1 Gram/100 Ml IV 100 mls/hr Q12HR MANISH Administration Protocol Propofol 1,000 mg in 100 mls @ 2.844 mls/hr 03/06/19 13:00 Diprivan 10 Mg/Ml IV TITR MANISH Protocol 5 MCG/KG/MIN Insulin Human Lispro 0 unit 03/04/19 13:00 03/06/19 06:01 Humalog SUB-Q Not Given Q6HR MANISH Protocol Lactulose 20 gm 03/02/19 10:00 03/06/19 09:23 Cephulac PO 20 gm Q12HR MANISH Administration Methylprednisolone Sodium Succinate 40 mg 03/05/19 14:00 03/06/19 06:01 Solu-Medrol IV 40 mg Q8HR MANISH Administration Multi-Ingred Cream/Lotion/Oil/Oint 1 applic 03/02/19 16:43 Artificial Tears Ophth Oint OU Q4HR PRN Dry Eye(s) Simple Syrup 15 ml 03/03/19 08:54 Simple Syrup FEEDTUBE PRN PRN Hypoglycemia Simple Syrup 30 ml 03/03/19 08:54 Simple Syrup FEEDTUBE PRN PRN Hypoglycemia Sodium Bicarbonate 325 mg 03/03/19 08:54 Sodium Bicarbonate FEEDTUBE PRN PRN For Clogged Feeding Tube Nutrition/Malnutrition Assess - Dietary Evaluation Nutrition/Malnutrition Findings: Nutrition Notes Start: 02/28/19 13:21 Freq: Status: Active Protocol: Document 03/06/19 10:33 CC (Rec: 03/06/19 10:38 CC [email or web address]) Co-Sign 03/06/19 10:33 LP Nutrition Notes Initial or Follow up Brief Note Current Diagnosis Acute Kidney Injury,Sepsis, Respiratory Failure Other Pertinent Diagnosis Breast CA stage 4, Pneumonia, SIRS, L breast surgical wound Current Diet Nepro at 40ml/hr Labs/Tests Na 147 BUN 132 Creat 2.6 Pertinent Medications Solumedrol Height 5 ft 2 in Weight 94.8 kg [place] Body Weight (kg) 50.00 BMI 38.2 Subjective/Other Information TF not running d/t pt scheduled for ultrasound. TF turned off this morning Burn Absent Trauma Absent Current % PO Negligible Nutrition Intervention Anticipated Discharge Needs: Unable to determine at this time Follow-Up By: 03/07/19 Additional Comments F/U for TF tolerance, Na labs
--- NOTE | 2019-03-06 12:54 | Progress Note ---
Assessment and Plan - Patient Problems (1) SELAM (acute kidney injury) Current Visit: Yes Status: Acute Plan to address problem: Likely due to severe pre-renal injury/ATN in the setting of sepsis/ARDS. Continue current management. Maintain adequate hemodynamic parameters, pressor support to maintain HgB >7.0. Avoid nephrotoxins. Patient has an overall poor prognosis considering her other underlying comorbidities, especially metastatic breast cancer, and would not be an ideal candidate for renal replacement initiation. UA and urine electrolytes reviewed at this time. Will add complement levels and ANCA panel to current workup to r/o possible GN etiologies for renal insufficiency, both of which are pending at this time, but likely this is ATN. Will give one dose of lasix 60 mg IV x 1 now. (2) Acute respiratory failure Current Visit: Yes Status: Acute Qualifiers: Qualified Code(s): J96.01 - Acute respiratory failure with hypoxia Plan to address problem: Intubated at this time. Vent management per pulmonary Mild response with previous lasix regimen. Will favor to give dose of lasix 60 mg IV x 1 dose now. (3) Anemia Current Visit: Yes Status: Acute Qualifiers: Qualified Code(s): D64.9 - Anemia, unspecified Plan to address problem: Transfuse to maintain Hgb>7.0. (4) Hypernatremia Current Visit: Yes Status: Acute Plan to address problem: Improving at this time. Will continue to closely monitor. (5) Sepsis Current Visit: Yes Status: Acute Qualifiers: Qualified Code(s): A41.9 - Sepsis, unspecified organism Plan to address problem: Continue on current antibiotic regimen, pressor support, to maintain MAP >65mmHg. Please ensure that antibiotics are dosed appropriately for diminished renal function. (6) Pneumonia Current Visit: Yes Status: Suspected Qualifiers: Qualified Code(s): J18.9 - Pneumonia, unspecified organism Plan to address problem: Infectious disease consult noted, antibiotics dosed per current renal para meters/renal function. Cultures noted, NGTD. Subjective Date of service: 03/06/19 Principal diagnosis: Ac. hypoxemic resp failure; Sev Sepsis; R. pleural effusion; Met. breast CA Interval history: No acute changes overnight. Overall renal function is stable, remains oliguric with lawson catheter in place. Remains intubated. Objective - Vital Signs Vital signs: Vital Signs - 12hr 03/06/19 03/06/19 03/06/19 01:00 01:15 01:30 Temperature Pulse Rate 95 H 99 H 97 H Pulse Rate [ Anterior Throughout] Pulse Rate [ From Monitor] Respiratory 17 16 18 Rate Respiratory Rate [Anterior Throughout] Respiratory Rate [Left Chest] Blood Pressure 104/68 112/59 106/62 O2 Sat by Pulse 96 96 95 Oximetry 03/06/19 03/06/19 03/06/19 01:45 02:00 02:15 Temperature Pulse Rate 98 H 100 H 99 H Pulse Rate [ Anterior Throughout] Pulse Rate [ From Monitor] Respiratory 18 19 15 Rate Respiratory Rate [Anterior Throughout] Respiratory Rate [Left Chest] Blood Pressure 111/63 107/64 111/62 O2 Sat by Pulse 95 95 96 Oximetry 03/06/19 03/06/19 03/06/19 02:30 02:45 03:00 Temperature Pulse Rate 97 H 99 H 102 H Pulse Rate [ Anterior Throughout] Pulse Rate [ From Monitor] Respiratory 21 25 H 25 H Rate Respiratory Rate [Anterior Throughout] Respiratory Rate [Left Chest] Blood Pressure 119/70 108/51 108/51 O2 Sat by Pulse 94 96 96 Oximetry 03/06/19 03/06/19 03/06/19 03:15 03:30 03:45 Temperature Pulse Rate 99 H 102 H 101 H Pulse Rate [ Anterior Throughout] Pulse Rate [ From Monitor] Respiratory 22 22 24 Rate Respiratory Rate [Anterior Throughout] Respiratory Rate [Left Chest] Blood Pressure 98/59 97/61 104/58 O2 Sat by Pulse 96 92 95 Oximetry 03/06/19 03/06/19 03/06/19 04:00 04:15 04:30 Temperature 98.5 F Pulse Rate 101 H 100 H 100 H Pulse Rate [ Anterior Throughout] Pulse Rate [ From Monitor] Respiratory 25 H 21 25 H Rate Respiratory Rate [Anterior Throughout] Respiratory Rate [Left Chest] Blood Pressure 106/59 110/55 106/58 O2 Sat by Pulse 94 95 94 Oximetry 03/06/19 03/06/19 03/06/19 04:45 05:00 05:09 Temperature Pulse Rate 100 H 98 H 94 H Pulse Rate [ Anterior Throughout] Pulse Rate [ From Monitor] Respiratory 25 H 26 H Rate Respiratory Rate [Anterior Throughout] Respiratory Rate [Left Chest] Blood Pressure 103/58 102/60 102/60 O2 Sat by Pulse 94 94 94 Oximetry 03/06/19 03/06/19 03/06/19 05:15 05:30 05:45 Temperature Pulse Rate 101 H 100 H 99 H Pulse Rate [ Anterior Throughout] Pulse Rate [ From Monitor] Respiratory 25 H 25 H 18 Rate Respiratory Rate [Anterior Throughout] Respiratory Rate [Left Chest] Blood Pressure 104/63 106/60 112/62 O2 Sat by Pulse 94 94 95 Oximetry 03/06/19 03/06/19 03/06/19 06:00 06:15 06:30 Temperature Pulse Rate 99 H 99 H 99 H Pulse Rate [ Anterior Throughout] Pulse Rate [ From Monitor] Respiratory 16 16 15 Rate Respiratory Rate [Anterior Throughout] Respiratory Rate [Left Chest] Blood Pressure 111/63 105/66 107/62 O2 Sat by Pulse 95 96 96 Oximetry 03/06/19 03/06/19 03/06/19 06:45 07:00 07:15 Temperature Pulse Rate 99 H 95 H 70 Pulse Rate [ Anterior Throughout] Pulse Rate [ From Monitor] Respiratory 13 21 13 Rate Respiratory Rate [Anterior Throughout] Respiratory Rate [Left Chest] Blood Pressure 104/62 115/65 115/65 O2 Sat by Pulse 96 96 89 Oximetry 03/06/19 03/06/19 03/06/19 07:31 07:45 08:00 Temperature 96.8 F L Pulse Rate 81 98 H 102 H Pulse Rate [ Anterior Throughout] Pulse Rate [ 96 H From Monitor] Respiratory 21 22 10 L Rate Respiratory Rate [Anterior Throughout] Respiratory Rate [Left Chest] Blood Pressure 158/83 110/63 115/71 O2 Sat by Pulse 95 97 99 Oximetry 03/06/19 03/06/19 03/06/19 08:01 08:04 08:15 Temperature Pulse Rate 100 H 94 H Pulse Rate [ 100 H Anterior Throughout] Pulse Rate [ From Monitor] Respiratory 19 Rate Respiratory 27 H Rate [Anterior Throughout] Respiratory Rate [Left Chest] Blood Pressure 115/71 109/63 O2 Sat by Pulse 98 97 Oximetry 03/06/19 03/06/19 03/06/19 08:30 08:45 09:00 Temperature Pulse Rate 102 H 100 H 99 H Pulse Rate [ Anterior Throughout] Pulse Rate [ From Monitor] Respiratory 21 18 20 Rate Respiratory Rate [Anterior Throughout] Respiratory Rate [Left Chest] Blood Pressure 107/63 109/63 105/59 O2 Sat by Pulse 97 96 97 Oximetry 03/06/19 03/06/19 03/06/19 09:15 09:30 09:46 Temperature Pulse Rate 99 H 99 H 103 H Pulse Rate [ Anterior Throughout] Pulse Rate [ From Monitor] Respiratory 24 20 29 H Rate Respiratory Rate [Anterior Throughout] Respiratory Rate [Left Chest] Blood Pressure 106/62 110/59 135/69 O2 Sat by Pulse 98 96 Oximetry 03/06/19 03/06/19 10:00 11:27 Temperature Pulse Rate 104 H 92 H Pulse Rate [ Anterior Throughout] Pulse Rate [ From Monitor] Respiratory 30 H Rate Respiratory Rate [Anterior Throughout] Respiratory 27 H Rate [Left Chest] Blood Pressure 111/60 111/60 O2 Sat by Pulse 97 100 Oximetry - General Appearance General appearance: chronically ill, intubated, frail EENT: ATNC Neck: no JVD, no thyromegaly Respiratory: Present: Ronchi Cardiology: regular, S1S2 Gastrointestinal: normal, normoactive bowel sounds Integumentary: warm and dry Neurologic: other (does not follow commands, responds to tactile stimuli ) - Lab 03/06/19 04:55 03/06/19 04:55 Most recent lab results ABG pH 7.335 pH Units (7.350-7.450) L 03/03/19 05:25 ABG pCO2 61.3 mm Hg 03/03/19 05:25 ABG pO2 89.2 mm Hg (80.0-90.0) 03/03/19 05:25 ABG HCO3 32.0 mmol/L (20.0-26.0) H 03/03/19 05:25 ABG O2 Saturation 97.0 % (95.0-99.0) 03/03/19 05:25 Calcium 9.3 mg/dL (8.4-10.2) 03/06/19 04:55 Phosphorus 3.30 mg/dL (2.5-4.5) D 03/03/19 05:00 Magnesium 2.90 mg/dL (1.7-2.3) H 03/03/19 05:00 Urine Creatinine 185.9 mg/dL (0.1-20.0) H 03/04/19 12:39 Urine Sodium 13 mmol/L 03/04/19 12:39 - Imaging Kidney/bladder ultrasound: report reviewed, image reviewed - Allied health notes Allied health notes reviewed: nursing Medications & Allergies - Medications Allergies/Adverse Reactions: Allergies aspirin Adverse Reaction (Verified 01/28/19 12:25) GI Upset Home Medications: Home Medications Medication Instructions Recorded Confirmed Last Taken Type amLODIPine 5 mg PO DAILY 01/27/19 02/27/19 02/15/19 10:00 History Albuterol Sulfate [Proventil Hfa] 6.7 gm IH Q6H PRN #1 can 02/11/19 02/27/19 02/15/19 15:00 Rx Clindamycin [Clindamycin CAP] 300 mg PO Q8H #21 cap 02/11/19 02/27/19 02/15/19 10:00 Rx oxyCODONE [roxiCODONE] 10 mg PO Q6HR PRN 02/15/19 02/27/19 Unknown History Budesonide/Formoterol Fumarate 2 puff IH BID #1 hfa.aer.ad 02/19/19 02/27/19 Unknown Rx [Symbicort 160-4.5 Mcg Inhaler] HYDROcodone/APAP 10-325 [[place] 1 each PO Q6HR PRN #30 tablet 02/19/19 02/27/19 Unknown Rx 10/325] cephALEXin [Keflex] 500 mg PO Q6HR #40 capsule 02/19/19 02/27/19 Unknown Rx Active Medications: Generic Name Dose Route Start Last Admin Trade Name Freq PRN Reason Stop Dose Admin Acetaminophen 650 mg 03/02/19 13:46 03/02/19 15:38 Tylenol PO 650 mg Q6H PRN Administration Fever >101 Albuterol 2.5 mg 02/27/19 21:08 02/28/19 12:35 Proventil IH 2.5 mg Q4HRT PRN Administration Shortness Of Breath Albuterol/Ipratropium 1 ampul 02/28/19 08:00 03/06/19 08:04 Duoneb *Not For Prn Use* IH 1 ampul TIDRT MANISH Administration Lipase/Protease/Amylase 1 each 03/03/19 08:54 Pancreanna Zamora 10,500 Unit FEEDTUBE PRN PRN For Clogged Feeding Tube Enoxaparin Sodium 30 mg 03/04/19 10:00 03/06/19 09:23 Enoxaparin SUB-Q 30 mg QDAY MANISH Administration Famotidine 20 mg 03/05/19 10:00 03/06/19 09:23 Pepcid PO 20 mg DAILY MANISH Administration Hydrophilic Ointment 1 applic 03/02/19 04:40 Vaseline Lip Therapy TP Q2HR PRN Dry Lips Norepinephrine 4 mg in 250 mls @ 7.5 mls/hr 03/02/19 05:00 03/04/19 14:46 Levophed Drip 4 Mg/Ns 250 Ml IV 0 mcg/min TITR MANISH 0 mls/hr Titration Protocol 2 MCG/MIN Vasopressin 20 unit/ Sodium 101 mls @ 9.09 mls/hr 03/02/19 05:00 03/05/19 10:32 Chloride IV 0 units/min TITR MANISH 0 mls/hr Titration Protocol 0.03 UNITS/MIN Fentanyl Citrate 2,000 mcg in 100 mls @ 4.64 mls/hr 03/02/19 17:00 03/06/19 08:14 Fentanyl Drip Premix IV 2 mcg/kg/hr TITR MANISH 9.28 mls/hr Administration Protocol 1 MCG/KG/HR MEROPENEM/NS 1 GRAM/100 ML 1 gram in 100 mls @ 100 mls/hr 03/04/19 14:00 03/06/19 09:23 Merrem/Ns 1 Gram/100 Ml IV 100 mls/hr Q12HR MANISH Administration Protocol Propofol 1,000 mg in 100 mls @ 2.844 mls/hr 03/06/19 13:00 Diprivan 10 Mg/Ml IV TITR MANISH Protocol 5 MCG/KG/MIN Insulin Human Lispro 0 unit 03/04/19 13:00 03/06/19 06:01 Humalog SUB-Q Not Given Q6HR [facility] Protocol Lactulose 20 gm 03/02/19 10:00 03/06/19 09:23 Cephulac PO 20 gm Q12HR MANISH Administration Methylprednisolone Sodium Succinate 40 mg 03/05/19 14:00 03/06/19 06:01 Solu-Medrol IV 40 mg Q8HR MANISH Administration Multi-Ingred Cream/Lotion/Oil/Oint 1 applic 03/02/19 16:43 Artificial Tears Ophth Oint OU Q4HR PRN Dry Eye(s) Simple Syrup 15 ml 03/03/19 08:54 Simple Syrup FEEDTUBE PRN PRN Hypoglycemia Simple Syrup 30 ml 03/03/19 08:54 Simple Syrup FEEDTUBE PRN PRN Hypoglycemia Sodium Bicarbonate 325 mg 03/03/19 08:54 Sodium Bicarbonate FEEDTUBE PRN PRN For Clogged Feeding Tube
[2019-03-06] MEDS ORDERED: FUROSEMIDE 40 MG/4 ML INJ IV ONE (13:33)
--- NOTE | 2019-03-06 14:24 | Vascular Lab Report ---
DUPLEX DOPPLER BILATERAL LOWER EXTREMITY VEINS INDICATION: Bilateral leg swelling FINDINGS: There is no thrombus within the deep veins of either lower extremity from the common femoral to the c uhsa veins. There is normal compression and augmentation on spectral analysis. IMPRESSION: No sonographic evidence for DVT in either lower extremity. Signer Name: Sampson Wynn MD Signed: 03/06/2019 2:20 PM Workstation Name: [id number]
[2019-03-06] MEDS: NORepinephrine/NS 4 MG-250 ML 4 MG/250 ML BAG IV SCH (15:41)
[2019-03-07] MEDS: INSULIN LISPRO 100 UNIT/ML SUB-Q SCH ×5 (00:08→18:32)
[2019-03-07] MEDS: fentaNYL DRIP Premix 2,000 MCG/100 ML BAG IV SCH ×5 (01:27→23:52)
--- NOTE | 2019-03-07 03:15 | XRay Report ---
CHEST 1 VIEW INDICATION / CLINICAL INFORMATION: follow up respiratory failure. COMPARISON: 03/06/2019 FINDINGS: SUPPORT DEVICES: Stable, satisfactory device positioning. HEART / MEDIASTINUM: Stable. LUNGS / PLEURA: Diffuse bilateral pulmonary opacities are again noted not significantly changed in ap pearance. No pneumothorax. ADDITIONAL FINDINGS: No significant additional findings. IMPRESSION: 1. Stable appearance of the chest radiograph. Signer Name: Alysa Castro MD Signed: 03/07/2019 3:10 AM Workstation Name: [id number]
[2019-03-07] MEDS: PROPOFOL 1,000 MG/100 ML BOTTLE IV SCH ×3 (05:47→23:52)
[2019-03-07] MEDS: methylPREDNISolone Sod Succinate 40 MG/1 ML INJ IV SCH ×3 (05:47→21:50)
--- NOTE | 2019-03-07 07:48 | Progress Note ---
Assessment and Plan - Patient Problems (1) SELAM (acute kidney injury) Current Visit: Yes Status: Acute Plan to address problem: Likely due to severe pre-renal injury/ATN in the setting of sepsis/ARDS. Continue current management. Maintain adequate hemodynamic parameters, pressor support to maintain HgB >7.0. Avoid nephrotoxins. Patient has an overall poor prognosis considering her other underlying comorbidities, especially metastatic breast cancer, and would not be an ideal candidate for renal replacement initiation. UA and urine electrolytes reviewed at this time. Will add complement levels and ANCA panel to current workup to r/o possible GN etiologies for renal insufficiency, both of which are pending at this time, but likely this is ATN. Will give another dose of lasix 60 mg IV today. (2) Acute respiratory failure Current Visit: Yes Status: Acute Qualifiers: Respiratory failure complication: hypoxia Qualified Code(s): J96.01 - Acute respiratory failure with hypoxia Plan to address problem: Intubated at this time. Vent management per pulmonary Mild response with previous lasix regimen. Will favor to give another dose of lasix 60 mg IV today. (3) Anemia Current Visit: Yes Status: Acute Qualifiers: Anemia type: unspecified type Qualified Code(s): D64.9 - Anemia, unspecified Plan to address problem: Transfuse to maintain Hgb>7.0. (4) Hypernatremia Current Visit: Yes Status: Acute Plan to address problem: Improving at this time. Will continue to closely monitor. Continues on free water flushes with Dobbhoff at 300 mL every 4 hours (5) Sepsis Current Visit: Yes Status: Acute Qualifiers: Sepsis type: sepsis due to unspecified organism Sepsis acute organ dysfunction status: unspecified Qualified Code(s): A41.9 - Sepsis, unspecified organism Plan to address problem: Continue on current antibiotic regimen, pressor support, to maintain MAP >65mmHg. Please ensure that antibiotics are dosed appropriately for diminished renal function. (6) Pneumonia Current Visit: Yes Status: Suspected Qualifiers: Pneumonia type: due to unspecified organism Laterality: bilateral Lung location: unspecified part of lung Qualified Code(s): J18.9 - Pneumonia, unspecified organism Plan to address problem: Infectious disease consult noted, antibiotics dosed per current renal parameters/renal function. Cultures noted, Olive albicans noted from sputum culture. Subjective Date of service: 03/07/19 Principal diagnosis: Ac. hypoxemic resp failure; Sev Sepsis; R. pleural ef fusion; Met. breast CA Interval history: Patient remains intubated and now is more sedated than yesterday. They're undergoing a right upper quadrant ultrasound examination today. 2 feeds have been discontinued for the aforementioned ultrasound. Per nursing staff should produce about 500 mL of urine overnight. She got 1 dose of Lasix 60 mg IV yesterday. She is also receiving free water flushes 300 mL every 4 hours with the Dobbhoff tube feeds. Objective - Vital Signs Vital signs: Vital Signs - 12hr 03/06/19 03/06/19 03/06/19 19:45 20:00 20:15 Temperature Pulse Rate 108 H 107 H 106 H Respiratory 20 20 26 H Rate Respiratory Rate [Left Chest] Blood Pressure 107/53 107/52 103/49 O2 Sat by Pulse 91 91 92 Oximetry 03/06/19 03/06/19 03/06/19 20:30 20:45 21:00 Temperature Pulse Rate 106 H 106 H 104 H Respiratory 30 H 16 27 H Rate Respiratory Rate [Left Chest] Blood Pressure 107/51 108/51 110/51 O2 Sat by Pulse 91 92 93 Oximetry 03/06/19 03/06/19 03/06/19 21:15 21:30 21:45 Temperature Pulse Rate 104 H 105 H 105 H Respiratory 24 17 17 Rate Respiratory Rate [Left Chest] Blood Pressure 105/49 105/52 103/53 O2 Sat by Pulse 92 89 91 Oximetry 03/06/19 03/06/19 03/06/19 22:00 22:15 22:30 Temperature Pulse Rate 104 H 105 H 104 H Respiratory 24 23 22 Rate Respiratory 27 H Rate [Left Chest] Blood Pressure 110/52 115/50 111/53 O2 Sat by Pulse 91 92 92 Oximetry 03/06/19 03/06/19 03/06/19 22:45 23:00 23:06 Temperature Pulse Rate 105 H 103 H Respiratory 22 16 20 Rate Respiratory Rate [Left Chest] Blood Pressure 108/50 106/52 O2 Sat by Pulse 91 92 Oximetry 03/06/19 03/06/19 03/06/19 23:11 23:15 23:20 Temperature 97.6 F Pulse Rate 103 H 104 H Respiratory 21 Rate Respiratory Rate [Left Chest] Blood Pressure 104/51 104/51 O2 Sat by Pulse 92 92 Oximetry 03/06/19 03/06/19 03/06/19 23:30 23:39 23:45 Temperature Pulse Rate 104 H 102 H 101 H Respiratory 20 21 27 H Rate Respiratory Rate [Left Chest] Blood Pressure 103/50 103/50 100/51 O2 Sat by Pulse 90 93 92 Oximetry 03/07/19 03/07/19 03/07/19 00:00 00:15 00:30 Temperature Pulse Rate 102 H 102 H 101 H Respiratory 18 21 17 Rate Respiratory Rate [Left Chest] Blood Pressure 105/48 103/51 108/51 O2 Sat by Pulse 92 92 93 Oximetry 03/07/19 03/07/19 03/07/19 00:45 01:00 01:15 Temperature Pulse Rate 101 H 101 H 100 H Respiratory 12 13 19 Rate Respiratory Rate [Left Chest] Blood Pressure 108/52 102/52 102/49 O2 Sat by Pulse 94 94 93 Oximetry 03/07/19 03/07/19 03/07/19 01:30 01:45 02:00 Temperature Pulse Rate 100 H 101 H 102 H Respiratory 18 29 H 16 Rate Respiratory Rate [Left Chest] Blood Pressure 108/49 108/49 121/56 O2 Sat by Pulse 93 91 92 Oximetry 03/07/19 03/07/19 03/07/19 02:15 02:30 02:45 Temperature Pulse Rate 101 H 104 H 102 H Respiratory 26 H 30 H 28 H Rate Respiratory Rate [Left Chest] Blood Pressure 121/55 119/58 118/56 O2 Sat by Pulse 92 92 95 Oximetry 03/07/19 03/07/19 03/07/19 03:00 03:15 03:25 Temperature 98.8 F Pulse Rate 101 H 103 H Respiratory 30 H 29 H Rate Respiratory Rate [Left Chest] Blood Pressure 120/58 113/56 O2 Sat by Pulse 96 94 Oximetry 03/07/19 03/07/19 03/07/19 03:30 03:45 04:00 Temperature Pulse Rate 101 H 100 H 100 H Respiratory 30 H 30 H 30 H Rate Respiratory Rate [Left Chest] Blood Pressure 111/55 117/55 113/55 O2 Sat by Pulse 92 92 91 Oximetry 03/07/19 03/07/19 03/07/19 04:01 04:15 04:30 Temperature Pulse Rate 103 H 100 H 99 H Respiratory 30 H 31 H Rate Respiratory Rate [Left Chest] Blood Pressure 113/55 115/55 115/56 O2 Sat by Pulse 92 92 92 Oximetry 03/07/19 03/07/19 03/07/19 04:45 05:00 05:15 Temperature Pulse Rate 101 H 103 H 101 H Respiratory 29 H 29 H 29 H Rate Respiratory Rate [Left Chest] Blood Pressure 120/54 117/56 115/55 O2 Sat by Pulse 93 93 92 Oximetry 03/07/19 03/07/19 03/07/19 05:30 05:45 06:00 Temperature Pulse Rate 101 H 100 H 100 H Respiratory 31 H 30 H 30 H Rate Respiratory Rate [Left Chest] Blood Pressure 114/55 116/58 109/56 O2 Sat by Pulse 92 93 92 Oximetry 03/07/19 06:15 Temperature Pulse Rate 99 H Respiratory 29 H Rate Respiratory Rate [Left Chest] Blood Pressure 117/53 O2 Sat by Pulse 93 Oximetry - General Appearance General appearance: chronically ill, sedated on ventilator, intubated, frail EENT: ATNC, PERRL Neck: no JVD, no thyromegaly Respiratory: Present: Ronchi Cardiology: regular, S1S2 Gastrointestinal: normal, normoactive bowel sounds Integumentary: warm and dry Neurologic: other (sedated at this time on the ventilator) Musculoskeletal: deferred - Lab 03/06/19 04:55 03/06/19 04:55 Most recent lab results ABG pH 7.335 pH Units (7.350-7.450) L 03/03/19 05:25 ABG pCO2 61.3 mm Hg 03/03/19 05:25 ABG pO2 89.2 mm Hg (80.0-90.0) 03/03/19 05:25 ABG HCO3 32.0 mmol/L (20.0-26.0) H 03/03/19 05:25 ABG O2 Saturation 97.0 % (95.0-99.0) 03/03/19 05:25 Calcium 9.3 mg/dL (8.4-10.2) 03/06/19 04:55 Phosphorus 3.30 mg/dL (2.5-4.5) D 03/03/19 05:00 Magnesium 2.90 mg/dL (1.7-2.3) H 03/03/19 05:00 Urine Creatinine 185.9 mg/dL (0.1-20.0) H 03/04/19 12:39 Urine Sodium 13 mmol/L 03/04/19 12:39 - Allied health notes Allied health notes reviewed: nursing Medications & Allergies - Medications Allergies/Adverse Reactions: Allergies aspirin Adverse Reaction (Verified 01/28/19 12:25) GI Upset Home Medications: Home Medications Medication Instructions Recorded Confirmed Last Taken Type amLODIPine 5 mg PO DAILY 01/27/19 02/27/19 02/15/19 10:00 History Albuterol Sulfate [Proventil Hfa] 6.7 gm IH Q6H PRN #1 can 02/11/19 02/27/19 02/15/19 15:00 Rx Clindamycin [Clindamycin CAP] 300 mg PO Q8H #21 cap 02/11/19 02/27/19 02/15/19 10:00 Rx oxyCODONE [roxiCODONE] 10 mg PO Q6HR PRN 02/15/19 02/27/19 Unknown History Budesonide/Formoterol Fumarate 2 puff IH BID #1 hfa.aer.ad 02/19/19 02/27/19 Unknown Rx [Symbicort 160-4.5 Mcg Inhaler] HYDROcodone/APAP 10-325 [[place] 1 each PO Q6HR PRN #30 tablet 02/19/19 02/27/19 Unknown Rx 10/325] cephALEXin [Keflex] 500 mg PO Q6HR #40 capsule 02/19/19 02/27/19 Unknown Rx Active Medications: Generic Name Dose Route Start Last Admin Trade Name Freq PRN Reason Stop Dose Admin Acetaminophen 650 mg 03/02/19 13:46 03/02/19 15:38 Tylenol PO 650 mg Q6H PRN Administration Fever >101 Albuterol 2.5 mg 02/27/19 21:08 02/28/19 12:35 Proventil IH 2.5 mg Q4HRT PRN Administration Shortness Of Breath Albuterol/Ipratropium 1 ampul 02/28/19 08:00 03/06/19 19:24 Duoneb *Not For Prn Use* IH 1 ampul TIDRT MANISH Administration Lipase/Protease/Amylase 1 each 03/03/19 08:54 Pancreanna Zamora 10,500 Unit FEEDTUBE PRN PRN For Clogged Feeding Tube Enoxaparin Sodium 30 mg 03/04/19 10:00 03/06/19 09:23 Enoxaparin SUB-Q 30 mg QDAY MANISH Administration Famotidine 20 mg 03/05/19 10:00 03/06/19 09:23 Pepcid PO 20 mg DAILY MANISH Administration Hydrophilic Ointment 1 applic 03/02/19 04:40 Vaseline Lip Therapy TP Q2HR PRN Dry Lips Norepinephrine 4 mg in 250 mls @ 7.5 mls/hr 03/02/19 05:00 03/06/19 15:41 Levophed Drip 4 Mg/Ns 250 Ml IV 2 mcg/min TITR MANISH 7.5 mls/hr Administration Protocol 2 MCG/MIN Vasopressin 20 unit/ Sodium 101 mls @ 9.09 mls/hr 03/02/19 05:00 03/05/19 10 :32 Chloride IV 0 units/min TITR MANISH 0 mls/hr Titration Protocol 0.03 UNITS/MIN Fentanyl Citrate 2,000 mcg in 100 mls @ 4.64 mls/hr 03/02/19 17:00 03/07/19 06:29 Fentanyl Drip Premix IV 4 mcg/kg/hr TITR MANISH 18.56 mls/hr Administration Protocol 1 MCG/KG/HR MEROPENEM/NS 1 GRAM/100 ML 1 gram in 100 mls @ 100 mls/hr 03/04/19 14:00 03/06/19 22:08 Merrem/Ns 1 Gram/100 Ml IV 100 mls/hr Q12HR MANISH Administration Protocol Propofol 1,000 mg in 100 mls @ 2.844 mls/hr 03/06/19 13:00 03/07/19 05:47 Diprivan 10 Mg/Ml IV 20 mcg/kg/min TITR MANISH 11.376 mls/hr Administration Protocol 5 MCG/KG/MIN Insulin Human Lispro 0 unit 03/04/19 13:00 03/07/19 05:49 Humalog SUB-Q Not Given Q6HR [facility] Protocol Lactulose 20 gm 03/02/19 10:00 03/06/19 22:07 Cephulac PO 20 gm Q12HR MANISH Administration Methylprednisolone Sodium Succinate 40 mg 03/05/19 14:00 03/07/19 05:47 Solu-Medrol IV 40 mg Q8HR MANISH Administration Multi-Ingred Cream/Lotion/Oil/Oint 1 applic 03/02/19 16:43 Artificial Tears Ophth Oint OU Q4HR PRN Dry Eye(s) Simple Syrup 15 ml 03/03/19 08:54 Simple Syrup FEEDTUBE PRN PRN Hypoglycemia Simple Syrup 30 ml 03/03/19 08:54 Simple Syrup FEEDTUBE PRN PRN Hypoglycemia Sodium Bicarbonate 325 mg 03/03/19 08:54 Sodium Bicarbonate FEEDTUBE PRN PRN For Clogged Feeding Tube
[2019-03-07] MEDS: IPRATROPIUM/ALBUTEROL SULFATE 3 ML AMPUL.NEB IH SCH ×3 (08:22→21:00)
--- NOTE | 2019-03-07 08:43 | Ultrasound Report ---
LIMITED RUQ ABDOMINAL ULTRASOUND INDICATION: Elevated LFTs, shock. COMPARISON: No relevant prior imaging study available. FINDINGS: Pancreas: Obscured. Abdominal Aorta: The proximal and mid aorta are normal. The distal aorta is obscured.. IVC: No signif icant abnormality. Liver: The liver measures 19.2 cm in length. Liver parenchyma is slightly echogenic suggesting mild fatty infiltration. No obvious mass or surface nodularity.. Normal hepatopedal blood flow in the main portal vein. Gallbladder: The gallbladder is contracted and contains multiple stones.. Bile ducts: No significant abnormality. Common bile duct measures 5.8 mm. Right kidney: No significant abnormality visualized.. Free fluid: None. Additional Findings: None. IMPRESSION: Mild hepatomegaly with fatty infiltration. Contracted gallbladder containing multiple gallstones consistent with chronic cholecystitis.. Signer Name: Kerwin Awad Jr, MD Signed: 03/07/2019 8:39 AM Workstation Name: [id number]
--- NOTE | 2019-03-07 09:56 | Progress Note ---
Assessment and Plan Acute hypoxemic-hypercapnic respiratory failure Sepsis, possible from left lung pneumonia Right pleural effusion Metastatic breast cancer Hypernatremia Poor medical compliance Obesity - continue PCV - increase Peep to 14 cm H2O - reduce FiO2 to 60% - repeat ABG after 2 hours - continue Propofol gtt to improve tolerance / reduce dyssynchrony - bilateral lower extremity Doppler's negative for DVT - continue to transduce CVP's prn acutely - continue fentanyl gtt and titrate for RASS 0 to -1 - continue enteral nutrition at goal rate as tolerated - continue scopolamine patch for secretion control (+ Robkristy acuitely) - wean vasopressors for target MAP > 65 mmHg - continue daily SAT's and SBT assessment as tolerated in am - CT head on hold till more stable - continue lawson catheter in this critically ill patient with quickly progressing SELAM - VAP bundle addressed (Aspiration precautions, HOB > 40 degrees) - continue Lung protective strategies - continue to wean FIO2 for O2 sats >90% - continue bronchodilators with pulmonary hygiene per RT - daily CXR's & ABG's acutely - Azotemia per nephrology team - continue to avoid nephrotoxins and adjust all medications fro GFR and CrCL - continue enteral nutrition and advance to goal rate as tolerated (hold for tentative extubation) - continue agitation management / Pain management per CPOT - complete empiric antibiotics for PNA - continue VTE prophylaxis - continue stress ulcer prophylaxis with PPI - continue accuchecks with glycemic control for SSI (While critically ill target blood glucose of 140-180 mg/dL; avoid hypoglycemia) - Continue mobility protocol for pressure ulcer prevention - Continue to monitor hemodynamics closely - Monitor electrolyte profile closely and replete as indicated - continue chronic home medications per attending and as clinically indicated - s/p thoracentesis (1400 ml's drained); follow studies - Wound care per RN & WCT - continue Free water for hypernatremia - continue other care per attending / other consultants ...... care plan discussed with at bedside CONDITION: CRITICAL PROGNOSIS: GUARDED-POOR CODE STATUS: FULL CODE The high probability of a clinically significant, sudden or life-threatening deterioration of the [cardiac, respiratory & neurologic] system(s) required my full and direct attention, intervention and personal management. The aggregate critical care time was [32] minutes without overlap. Time includes spent on; [x] Data Review and interpretation [x] Patient assessment and monitoring of vital signs [x] Documentation [x] Medication orders and management Subjective Date of service: 03/07/19 Principal diagnosis: Ac. hypoxemic resp failure; Sev Sepsis; R. pleural effusion; Met. breast CA Interval history: Patient is seen today for: Acute hypoxemic-hypercapnic respiratory failure; Sepsis, possible from left lung pneumonia; Right pleural effusion; Metastatic breast cancer; Hypernatremia; Poor medical compliance; Obesity Seen and examined at bedside; 24hour events reviewed; nursing and respiratory care staff consulted; no adverse overnight events reported to me; resting in bed; remains Septic; on Levophed at 4 antonina's/min; AMS is persistent; no emesis or overt aspiration; no seizures Objective Vital Signs - 12hr 03/06/19 03/06/19 03/06/19 22:00 22:15 22:30 Temperature Pulse Rate 104 H 105 H 104 H Pulse Rate [ From Monitor] Respiratory 24 23 22 Rate Respiratory 27 H Rate [Left Chest] Blood Pressure 110/52 115/50 111/53 O2 Sat by Pulse 91 92 92 Oximetry 03/06/19 03/06/19 03/06/19 22:45 23:00 23:06 Temperature Pulse Rate 105 H 103 H Pulse Rate [ From Monitor] Respiratory 22 16 20 Rate Respiratory Rate [Left Chest] Blood Pressure 108/50 106/52 O2 Sat by Pulse 91 92 Oximetry 03/06/19 03/06/19 03/06/19 23:11 23:15 23:20 Temperature 97.6 F Pulse Rate 103 H 104 H Pulse Rate [ From Monitor] Respiratory 21 Rate Respiratory Rate [Left Chest] Blood Pressure 104/51 104/51 O2 Sat by Pulse 92 92 Oximetry 03/06/19 03/06/19 03/06/19 23:30 23:39 23:45 Temperature Pulse Rate 104 H 102 H 101 H Pulse Rate [ From Monitor] Respiratory 20 21 27 H Rate Respiratory Rate [Left Chest] Blood Pressure 103/50 103/50 100/51 O2 Sat by Pulse 90 93 92 Oximetry 03/07/19 03/07/19 03/07/19 00:00 00:15 00:30 Temperature Pulse Rate 102 H 102 H 101 H Pulse Rate [ From Monitor] Respiratory 18 21 17 Rate Respiratory Rate [Left Chest] Blood Pressure 105/48 103/51 108/51 O2 Sat by Pulse 92 92 93 Oximetry 03/07/19 03/07/19 03/07/19 00:45 01:00 01:15 Temperature Pulse Rate 101 H 101 H 100 H Pulse Rate [ From Monitor] Respiratory 12 13 19 Rate Respiratory Rate [Left Chest] Blood Pressure 108/52 102/52 102/49 O2 Sat by Pulse 94 94 93 Oximetry 03/07/19 03/07/19 03/07/19 01:30 01:45 02:00 Temperature Pulse Rate 100 H 101 H 102 H Pulse Rate [ From Monitor] Respiratory 18 29 H 16 Rate Respiratory Rate [Left Chest] Blood Pressure 108/49 108/49 121/56 O2 Sat by Pulse 93 91 92 Oximetry 03/07/19 03/07/19 03/07/19 02:15 02:30 02:45 Temperature Pulse Rate 101 H 104 H 102 H Pulse Rate [ From Monitor] Respiratory 26 H 30 H 28 H Rate Respiratory Rate [Left Chest] Blood Pressure 121/55 119/58 118/56 O2 Sat by Pulse 92 92 95 Oximetry 03/07/19 03/07/19 03/07/19 03:00 03:15 03:25 Temperature 98.8 F Pulse Rate 101 H 103 H Pulse Rate [ From Monitor] Respiratory 30 H 29 H Rate Respiratory Rate [Left Chest] Blood Pressure 120/58 113/56 O2 Sat by Pulse 96 94 Oximetry 03/07/19 03/07/19 03/07/19 03:30 03:45 04:00 Temperature Pulse Rate 101 H 100 H 100 H Pulse Rate [ From Monitor] Respiratory 30 H 30 H 30 H Rate Respiratory Rate [Left Chest] Blood Pressure 111/55 117/55 113/55 O2 Sat by Pulse 92 92 91 Oximetry 03/07/19 03/07/19 03/07/19 04:01 04:15 04:30 Temperature Pulse Rate 103 H 100 H 99 H Pulse Rate [ From Monitor] Respiratory 30 H 31 H Rate Respiratory Rate [Left Chest] Blood Pressure 113/55 115/55 115/56 O2 Sat by Pulse 92 92 92 Oximetry 03/07/19 03/07/19 03/07/19 04:45 05:00 05:15 Temperature Pulse Rate 101 H 103 H 101 H Pulse Rate [ From Monitor] Respiratory 29 H 29 H 29 H Rate Respiratory Rate [Left Chest] Blood Pressure 120/54 117/56 115/55 O2 Sat by Pulse 93 93 92 Oximetry 03/07/19 03/07/19 03/07/19 05:30 05:45 06:00 Temperature Pulse Rate 101 H 100 H 100 H Pulse Rate [ From Monitor] Respiratory 31 H 30 H 30 H Rate Respiratory Rate [Left Chest] Blood Pressure 114/55 116/58 109/56 O2 Sat by Pulse 92 93 92 Oximetry 03/07/19 03/07/19 03/07/19 06:15 06:30 06:45 Temperature Pulse Rate 99 H 100 H 100 H Pulse Rate [ From Monitor] Respiratory 29 H 30 H 29 H Rate Respiratory Rate [Left Chest] Blood Pressure 117/53 122/56 120/53 O2 Sat by Pulse 93 92 94 Oximetry 03/07/19 03/07/19 03/07/19 07:00 07:15 07:30 Temperature Pulse Rate 100 H 99 H 99 H Pulse Rate [ From Monitor] Respiratory 29 H 30 H 29 H Rate Respiratory Rate [Left Chest] Blood Pressure 116/60 117/61 115/59 O2 Sat by Pulse 94 94 94 Oximetry 03/07/19 03/07/19 03/07/19 07:45 08:00 08:15 Temperature 98.4 F Pulse Rate 102 H 101 H 102 H Pulse Rate [ 95 H From Monitor] Respiratory 27 H 30 H 27 H Rate Respiratory Rate [Left Chest] Blood Pressure 114/57 109/55 110/56 O2 Sat by Pulse 91 92 93 Oximetry 03/07/19 03/07/19 03/07/19 08:25 08:30 08:45 Temperature Pulse Rate 100 H 100 H 98 H Pulse Rate [ From Monitor] Respiratory 30 H 9 L Rate Respiratory Rate [Left Chest] Blood Pressure 110/56 116/57 111/57 O2 Sat by Pulse 98 95 87 Oximetry 03/07/19 09:00 Temperature Pulse Rate 96 H Pulse Rate [ From Monitor] Respiratory 22 Rate Respiratory Rate [Left Chest] Blood Pressure 118/63 O2 Sat by Pulse 88 Oximetry Constitutional: appears uncomfortable, other (middle aged obese AAF with mildly increased respiratory distress on MVS) Eyes: icteric ENT: other (Small bowel feeding tube in place, 7.[address] 23cm at the lip) Neck: supple, no lymphadenopathy, no JVD, other (Left IJ CVC; large neck circumference) Effort: mildly labored Ascultation: Bilateral: diminished breath sounds, rales Percussion: Bilateral: not dull Cardiovascular: regular rate and rhythm, other (Tachycardia S1,S2, no murmurs. Anterior chest wall dressing) Gastrointestinal: normoactive bowel sounds, soft, non-tender, non-distended Integumentary: other (Chest wall wound) Extremities: no cyanosis, pulses normal, no ischemia or petechiae, edema, other (edema) Neurologic: pupils equal and round, other (sedated, unable to assess) Psychiatric: other (unable to assess re: AMS) CBC and BMP: 03/06/19 04:55 03/06/19 04:55 ABG, PT/INR, D-dimer: ABG POC ABG pH 7.258 (7.35-7.45) L 03/07/19 04:34 ABG pH 7.335 pH Units (7.350-7.450) L 03/03/19 05:25 POC ABG pCO2 65.6 (35-45) H 03/07/19 04:34 ABG pCO2 61.3 mm Hg 03/03/19 05:25 POC ABG pO2 73 (80-105) L 03/07/19 04:34 ABG pO2 89.2 mm Hg (80.0-90.0) 03/03/19 05:25 POC ABG HCO3 29.3 (22-26 mml/L) 03/07/19 04:34 POC ABG Total CO2 31 (23-27mmol/L) 03/07/19 04:34 POC ABG O2 Sat 91 03/07/19 04:34 ABG O2 Saturation 97.0 % (95.0-99.0) 03/03/19 05:25 PT/INR, D-dimer PT 14.8 Sec. (12.2-14.9) 02/27/19 12:38 INR 1.17 (0.87-1.13) H 02/27/19 12:38 D-Dimer 5778.32 ng/mlDDU (0-234) H 02/27/19 12:38 Abnormal lab findings: Abnormal Labs 02/27/19 02/27/19 02/27/19 11:33 11:33 11:33 WBC 18.6 H RBC 3.60 L Hgb 8.7 L Hct 28.8 L MCH 24 L MCHC RDW 23.0 H Plt Count 507 H Lymph % (Auto) 12.9 L [place] # 1.3 H Seg Neutrophils % 79.7 H Seg Neuts % (Manual) Lymphocytes % (Manual) Nucleated RBC % Seg Neutrophils # 14.8 H Seg Neutrophils # Man Lymphocytes # (Manual) INR D-Dimer POC ABG pH ABG pH POC ABG pCO2 POC ABG pO2 ABG pO2 ABG HCO3 ABG O2 Saturation ABG Base Excess ABG Hemoglobin Oxyhemoglobin Sodium Potassium Chloride 96.8 L Carbon Dioxide BUN 28 H Creatinine 0.5 L Glucose 169 H POC Glucose Lactic Acid 3.40 H* Phosphorus Magnesium AST ALT Alkaline Phosphatase Ammonia Total Creatine Kinase 197 H CK-MB (CK-2) 4.1 H NT-Pro-B Natriuret Pep Total Protein Albumin Free T4 Urine Creatinine Urine Chloride Crossmatch 02/27/19 02/27/19 02/27/19 11:33 11:45 11:47 WBC RBC Hgb Hct MCH MCHC RDW Plt Count Lymph % (Auto) [place] # Seg Neutrophils % Seg Neuts % (Manual) Lymphocytes % (Manual) Nucleated RBC % Seg Neutrophils # Seg Neutrophils # Man Lymphocytes # (Manual) INR D-Dimer POC ABG pH ABG pH POC ABG pCO2 POC ABG pO2 ABG pO2 ABG HCO3 ABG O2 Saturation ABG Base Excess ABG Hemoglobin Oxyhemoglobin Sodium Potassium Chloride Carbon Dioxide BUN Creatinine Glucose POC Glucose 169 H Lactic Acid Phosphorus Magnesium AST 95 H ALT Alkaline Phosphatase 130 H Ammonia Total Creatine Kinase CK-MB (CK-2) NT-Pro-B Natriuret Pep Total Protein Albumin 2.9 L Free T4 Urine Creatinine Urine Chloride Crossmatch See Detail 02/27/19 02/27/19 02/27/19 12:30 12:38 14:08 WBC RBC Hgb Hct MCH MCHC RDW Plt Count Lymph % (Auto) [place] # Seg Neutrophils % Seg Neuts % (Manual) Lymphocytes % (Manual) Nucleated RBC % Seg Neutrophils # Seg Neutrophils # Man Lymphocytes # (Manual) INR 1.17 H D-Dimer 5778.32 H POC ABG pH 7.326 L ABG pH POC ABG pCO2 POC ABG pO2 129 H ABG pO2 ABG HCO3 ABG O2 Saturation ABG Base Excess ABG Hemoglobin Oxyhemoglobin Sodium Potassium Chloride Carbon Dioxide BUN Creatinine Glucose POC Glucose Lactic Acid 3.00 H* Phosphorus Magnesium AST ALT Alkaline Phosphatase Ammonia Total Creatine Kinase CK-MB (CK-2) NT-Pro-B Natriuret Pep Total Protein Albumin Free T4 Urine Creatinine Urine Chloride Crossmatch 02/27/19 02/27/19 02/27/19 15:03 16:06 18:08 WBC RBC Hgb Hct MCH MCHC RDW Plt Count Lymph % (Auto) [place] # Seg Neutrophils % Seg Neuts % (Manual) Lymphocytes % (Manual) Nucleated RBC % Seg Neutrophils # Seg Neutrophils # Man Lymphocytes # (Manual) INR D-Dimer POC ABG pH ABG pH POC ABG pCO2 68.8 H POC ABG pO2 225 H ABG pO2 ABG HCO3 ABG O2 Saturation ABG Base Excess ABG Hemoglobin Oxyhemoglobin Sodium Potassium Chloride Carbon Dioxide BUN Creatinine Glucose POC Glucose Lactic Acid 3.20 H* 2.80 H* Phosphorus Magnesium AST ALT Alkaline Phosphatase Ammonia Total Creatine Kinase CK-MB (CK-2) NT-Pro-B Natriuret Pep Total Protein Albumin Free T4 Urine Creatinine Urine Chloride Crossmatch 02/27/19 02/28/19 02/28/19 18:12 10:00 10:00 WBC 13.3 H RBC 3.39 L Hgb 8.1 L Hct 26.7 L MCH 24 L MCHC RDW 22.5 H Plt Count Lymph % (Auto) [place] # Seg Neutrophils % Seg Neuts % (Manual) Lymphocytes % (Manual) Nucleated RBC % Seg Neutrophils # Seg Neutrophils # Man Lymphocytes # (Manual) INR D-Dimer POC ABG pH ABG pH POC ABG pCO2 POC ABG pO2 ABG pO2 ABG HCO3 ABG O2 Saturation ABG Base Excess ABG Hemoglobin Oxyhemoglobin Sodium 146 H Potassium Chloride Carbon Dioxide 32 H BUN 32 H Creatinine 0.5 L Glucose 111 H POC Glucose Lactic Acid 2.30 H* Phosphorus Magnesium AST 93 H ALT Alkaline Phosphatase Ammonia Total Creatine Kinase CK-MB (CK-2) NT-Pro-B Natriuret Pep Total Protein Albumin 2.6 L Free T4 Urine Creatinine Urine Chloride Crossmatch 02/28/19 03/01/19 03/01/19 10:26 00:05 05:00 WBC 20.2 H RBC Hgb 9.0 L Hct 29.9 L MCH 24 L MCHC RDW 22.8 H Plt Count 498 H Lymph % (Auto) [place] # Seg Neutrophils % Seg Neuts % (Manual) Lymphocytes % (Manual) Nucleated RBC % Seg Neutrophils # Seg Neutrophils # Man Lymphocytes # (Manual) INR D-Dimer POC ABG pH ABG pH POC ABG pCO2 54.2 H POC ABG pO2 ABG pO2 ABG HCO3 ABG O2 Saturation ABG Base Excess ABG Hemoglobin Oxyhemoglobin Sodium Potassium Chloride Carbon Dioxide BUN Creatinine Glucose POC Glucose 167 H Lactic Acid Phosphorus Magnesium AST ALT Alkaline Phosphatase Ammonia Total Creatine Kinase CK-MB (CK-2) NT-Pro-B Natriuret Pep Total Protein Albumin Free T4 Urine Creatinine Urine Chloride Crossmatch 03/01/19 03/01/19 03/01/19 05:00 12:36 17:31 WBC RBC Hgb Hct MCH MCHC RDW Plt Count Lymph % (Auto) [place] # Seg Neutrophils % Seg Neuts % (Manual) Lymphocytes % (Manual) Nucleated RBC % Seg Neutrophils # Seg Neutrophils # Man Lymphocytes # (Manual) INR D-Dimer POC ABG pH ABG pH POC ABG pCO2 POC ABG pO2 ABG pO2 ABG HCO3 ABG O2 Saturation ABG Base Excess ABG Hemoglobin Oxyhemoglobin Sodium 148 H Potassium Chloride Carbon Dioxide 37 H BUN 43 H Creatinine 0.6 L Glucose 150 H POC Glucose 140 H 157 H Lactic Acid Phosphorus Magnesium AST ALT Alkaline Phosphatase Ammonia Total Creatine Kinase CK-MB (CK-2) NT-Pro-B Natriuret Pep Total Protein Albumin Free T4 Urine Creatinine Urine Chloride Crossmatch 03/02/19 03/02/19 03/02/19 04:29 04:32 05:27 WBC RBC Hgb Hct MCH MCHC RDW Plt Count Lymph % (Auto) [place] # Seg Neutrophils % Seg Neuts % (Manual) Lymphocytes % (Manual) Nucleated RBC % Seg Neutrophils # Seg Neutrophils # Man Lymphocytes # (Manual) INR D-Dimer POC ABG pH 7.056 L ABG pH POC ABG pCO2 POC ABG pO2 64 L ABG pO2 ABG HCO3 ABG O2 Saturation ABG Base Excess ABG Hemoglobin Oxyhemoglobin Sodium Potassium Chloride Carbon Dioxide BUN Creatinine Glucose POC Glucose 161 H Lactic Acid Phosphorus Magnesium AST ALT Alkaline Phosphatase Ammonia Total Creatine Kinase CK-MB (CK-2) NT-Pro-B Natriuret Pep 2143 H Total Protein Albumin Free T4 Urine Creatinine Urine Chloride Crossmatch 03/02/19 03/02/19 03/02/19 05:27 05:27 05:27 WBC 17.8 H RBC 3.50 L Hgb 8.5 L Hct 29.5 L MCH 24 L MCHC 29 L RDW 21.9 H Plt Count Lymph % (Auto) [place] # Seg Neutrophils % Seg Neuts % (Manual) 94.0 H Lymphocytes % (Manual) 2.0 L Nucleated RBC % 1.0 H Seg Neutrophils # Seg Neutrophils # Man 16.7 H Lymphocytes # (Manual) 0.4 L INR D-Dimer POC ABG pH ABG pH POC ABG pCO2 POC ABG pO2 ABG pO2 ABG HCO3 ABG O2 Saturation ABG Base Excess ABG Hemoglobin Oxyhemoglobin Sodium 156 H D Potassium 5.4 H Chloride 108.6 H Carbon Dioxide 39 H BUN 60 H Creatinine Glucose 159 H POC Glucose Lactic Acid Phosphorus Magnesium AST 164 H ALT Alkaline Phosphatase 164 H Ammonia 81.0 H Total Creatine Kinase CK-MB (CK-2) NT-Pro-B Natriuret Pep Total Protein 6.2 L Albumin 2.2 L Free T4 Urine Creatinine Urine Chloride Crossmatch 03/02/19 03/02/19 03/02/19 05:27 06:04 10:56 WBC RBC Hgb Hct MCH MCHC RDW Plt Count Lymph % (Auto) [place] # Seg Neutrophils % Seg Neuts % (Manual) Lymphocytes % (Manual) Nucleated RBC % Seg Neutrophils # Seg Neutrophils # Man Lymphocytes # (Manual) INR D-Dimer POC ABG pH ABG pH 7.239 L POC ABG pCO2 POC ABG pO2 ABG pO2 60.0 L 103.9 H ABG HCO3 36.6 H 32.9 H ABG O2 Saturation 88.3 L ABG Base Excess 7.3 H 7.7 H ABG Hemoglobin 9.1 L 9.0 L Oxyhemoglobin 86.3 L Sodium Potassium Chloride Carbon Dioxide BUN Creatinine Glucose POC Glucose Lactic Acid Phosphorus 6.90 H Magnesium 2.80 H AST ALT Alkaline Phosphatase Ammonia Total Creatine Kinase CK-MB (CK-2) NT-Pro-B Natriuret Pep Total Protein Albumin Free T4 Urine Creatinine Urine Chloride Crossmatch 03/02/19 03/02/19 03/02/19 13:58 23:40 Unknown WBC RBC Hgb Hct MCH MCHC RDW Plt Count Lymph % (Auto) [place] # Seg Neutrophils % Seg Neuts % (Manual) Lymphocytes % (Manual) Nucleated RBC % Seg Neutrophils # Seg Neutrophils # Man Lymphocytes # (Manual) INR D-Dimer POC ABG pH ABG pH POC ABG pCO2 POC ABG pO2 ABG pO2 ABG HCO3 ABG O2 Saturation ABG Base Excess ABG Hemoglobin Oxyhemoglobin Sodium Potassium Chloride Carbon Dioxide BUN Creatinine Glucose POC Glucose 127 H 161 H Lactic Acid Phosphorus Magnesium AST ALT Alkaline Phosphatase Ammonia Total Creatine Kinase CK-MB (CK-2) NT-Pro-B Natriuret Pep Total Protein Albumin Free T4 Urine Creatinine 218.2 H Urine Chloride Crossmatch 03/03/19 03/03/19 03/03/19 05:00 05:00 05:25 WBC 17.8 H RBC 3.62 L Hgb 8.8 L Hct 28.9 L MCH 24 L MCHC RDW 22.8 H Plt Count Lymph % (Auto) [place] # Seg Neutrophils % Seg Neuts % (Manual) 96.0 H Lymphocytes % (Manual) 1.0 L Nucleated RBC % 3.0 H Seg Neutrophils # Seg Neutrophils # Man 17.1 H Lymphocytes # (Manual) 0.2 L INR D-Dimer POC ABG pH ABG pH 7.335 L POC ABG pCO2 POC ABG pO2 ABG pO2 ABG HCO3 32.0 H ABG O2 Saturation ABG Base Excess 5.2 H ABG Hemoglobin 8.2 L Oxyhemoglobin 94.9 L Sodium 160 H Potassium 3.5 L D Chloride 113.7 H Carbon Dioxide BUN 90 H Creatinine 1.7 H D Glucose 149 H POC Glucose Lactic Acid Phosphorus Magnesium 2.90 H AST 624 H ALT 211 H Alkaline Phosphatase 416 H Ammonia Total Creatine Kinase CK-MB (CK-2) NT-Pro-B Natriuret Pep Total Protein 6.2 L Albumin 2.2 L Free T4 Urine Creatinine Urine Chloride Crossmatch 03/03/19 03/03/19 03/03/19 05:41 12:27 15:54 WBC RBC Hgb Hct MCH MCHC RDW Plt Count Lymph % (Auto) [place] # Seg Neutrophils % Seg Neuts % (Manual) Lymphocytes % (Manual) Nucleated RBC % Seg Neutrophils # Seg Neutrophils # Man Lymphocytes # (Manual) INR D-Dimer POC ABG pH ABG pH POC ABG pCO2 POC ABG pO2 ABG pO2 ABG HCO3 ABG O2 Saturation ABG Base Excess ABG Hemoglobin Oxyhemoglobin Sodium Potassium Chloride Carbon Dioxide BUN Creatinine Glucose POC Glucose 150 H 167 H Lactic Acid Phosphorus Magnesium AST ALT Alkaline Phosphatase Ammonia Total Creatine Kinase CK-MB (CK-2) NT-Pro-B Natriuret Pep Total Protein Albumin Free T4 0.50 L Urine Creatinine Urine Chloride Crossmatch 03/03/19 03/03/19 03/04/19 17:32 23:57 04:11 WBC RBC Hgb Hct MCH MCHC RDW Plt Count Lymph % (Auto) [place] # Seg Neutrophils % Seg Neuts % (Manual) Lymphocytes % (Manual) Nucleated RBC % Seg Neutrophils # Seg Neutrophils # Man Lymphocytes # (Manual) INR D-Dimer POC ABG pH 7.332 L ABG pH POC ABG pCO2 57.1 H POC ABG pO2 ABG pO2 ABG HCO3 ABG O2 Saturation ABG Base Excess ABG Hemoglobin Oxyhemoglobin Sodium Potassium Chloride Carbon Dioxide BUN Creatinine Glucose POC Glucose 165 H 202 H Lactic Acid Phosphorus Magnesium AST ALT Alkaline Phosphatase Ammonia Total Creatine Kinase CK-MB (CK-2) NT-Pro-B Natriuret Pep Total Protein Albumin Free T4 Urine Creatinine Urine Chloride Crossmatch 03/04/19 03/04/19 03/04/19 04:38 04:38 05:30 WBC 23.0 H RBC 3.36 L Hgb 7.9 L Hct 26.6 L MCH 24 L MCHC RDW 23.1 H Plt Count Lymph % (Auto) [place] # Seg Neutrophils % Seg Neuts % (Manual) 98.0 H Lymphocytes % (Manual) 0 L Nucleated RBC % Seg Neutrophils # Seg Neutrophils # Man 22.5 H Lymphocytes # (Manual) 0.0 L INR D-Dimer POC ABG pH ABG pH POC ABG pCO2 POC ABG pO2 ABG pO2 ABG HCO3 ABG O2 Saturation ABG Base Excess ABG Hemoglobin Oxyhemoglobin Sodium 151 H D Potassium Chloride 110.4 H Carbon Dioxide BUN 103 H Creatinine 2.0 H Glucose 177 H POC Glucose 172 H Lactic Acid Phosphorus Magnesium AST 244 H ALT 159 H Alkaline Phosphatase 365 H Ammonia Total Creatine Kinase CK-MB (CK-2) NT-Pro-B Natriuret Pep Total Protein 5.9 L Albumin 2.1 L Free T4 Urine Creatinine Urine Chloride Crossmatch 03/04/19 03/04/19 03/04/19 12:10 12:39 18:11 WBC RBC Hgb Hct MCH MCHC RDW Plt Count Lymph % (Auto) [place] # Seg Neutrophils % Seg Neuts % (Manual) Lymphocytes % (Manual) Nucleated RBC % Seg Neutrophils # Seg Neutrophils # Man Lymphocytes # (Manual) INR D-Dimer POC ABG pH ABG pH POC ABG pCO2 POC ABG pO2 ABG pO2 ABG HCO3 ABG O2 Saturation ABG Base Excess ABG Hemoglobin Oxyhemoglobin Sodium Potassium Chloride Carbon Dioxide BUN Creatinine Glucose POC Glucose 226 H 173 H Lactic Acid Phosphorus Magnesium AST ALT Alkaline Phosphatase Ammonia Total Creatine Kinase CK-MB (CK-2) NT-Pro-B Natriuret Pep Total Protein Albumin Free T4 Urine Creatinine 185.9 H Urine Chloride 10.2 L Crossmatch 03/04/19 03/05/19 03/05/19 23:24 04:16 04:28 WBC 23.8 H RBC 3.08 L Hgb 7.5 L Hct 25.0 L MCH 24 L MCHC RDW 23.0 H Plt Count Lymph % (Auto) [place] # Seg Neutrophils % Seg Neuts % (Manual) 96.0 H Lymphocytes % (Manual) 3.0 L Nucleated RBC % 1.0 H Seg Neutrophils # Seg Neutrophils # Man 22.8 H Lymphocytes # (Manual) 0.7 L INR D-Dimer POC ABG pH 7.274 L ABG pH POC ABG pCO2 59.7 H POC ABG pO2 107 H ABG pO2 ABG HCO3 ABG O2 Saturation ABG Base Excess ABG Hemoglobin Oxyhemoglobin Sodium Potassium Chloride Carbon Dioxide BUN Creatinine Glucose POC Glucose 184 H Lactic Acid Phosphorus Magnesium AST ALT Alkaline Phosphatase Ammonia Total Creatine Kinase CK-MB (CK-2) NT-Pro-B Natriuret Pep Total Protein Albumin Free T4 Urine Creatinine Urine Chloride Crossmatch 03/05/19 03/05/19 03/05/19 04:28 04:28 05:29 WBC RBC Hgb Hct MCH MCHC RDW Plt Count Lymph % (Auto) [place] # Seg Neutrophils % Seg Neuts % (Manual) Lymphocytes % (Manual) Nucleated RBC % Seg Neutrophils # Seg Neutrophils # Man Lymphocytes # (Manual) INR D-Dimer POC ABG pH ABG pH POC ABG pCO2 POC ABG pO2 ABG pO2 ABG HCO3 ABG O2 Saturation ABG Base Excess ABG Hemoglobin Oxyhemoglobin Sodium 147 H Potassium Chloride 107.9 H Carbon Dioxide BUN 112 H Creatinine 2.3 H Glucose 153 H POC Glucose 147 H Lactic Acid Phosphorus Magnesium AST 188 H ALT 138 H Alkaline Phosphatase 384 H Ammonia 71.0 H Total Creatine Kinase CK-MB (CK-2) NT-Pro-B Natriuret Pep Total Protein 6.0 L Albumin 2.2 L Free T4 Urine Creatinine Urine Chloride Crossmatch 03/05/19 03/05/19 03/05/19 12:00 17:44 23:48 WBC RBC Hgb Hct MCH MCHC RDW Plt Count Lymph % (Auto) [place] # Seg Neutrophils % Seg Neuts % (Manual) Lymphocytes % (Manual) Nucleated RBC % Seg Neutrophils # Seg Neutrophils # Man Lymphocytes # (Manual) INR D-Dimer POC ABG pH ABG pH POC ABG pCO2 POC ABG pO2 ABG pO2 ABG HCO3 ABG O2 Saturation ABG Base Excess ABG Hemoglobin Oxyhemoglobin Sodium Potassium Chloride Carbon Dioxide BUN Creatinine Glucose POC Glucose 181 H 111 H 120 H Lactic Acid Phosphorus Magnesium AST ALT Alkaline Phosphatase Ammonia Total Creatine Kinase CK-MB (CK-2) NT-Pro-B Natriuret Pep Total Protein Albumin Free T4 Urine Creatinine Urine Chloride Crossmatch 03/06/19 03/06/19 03/06/19 04:55 04:55 05:19 WBC 26.5 H RBC 3.28 L Hgb 7.7 L Hct 26.4 L MCH 24 L MCHC 29 L RDW 23.0 H Plt Count Lymph % (Auto) [place] # Seg Neutrophils % Seg Neuts % (Manual) 98.0 H Lymphocytes % (Manual) 2.0 L Nucleated RBC % 2.0 H Seg Neutrophils # Seg Neutrophils # Man 26.0 H Lymphocytes # (Manual) 0.5 L INR D-Dimer POC ABG pH 7.248 L ABG pH POC ABG pCO2 65.9 H POC ABG pO2 79 L ABG pO2 ABG HCO3 ABG O2 Saturation ABG Base Excess ABG Hemoglobin Oxyhemoglobin Sodium 147 H Potassium Chloride Carbon Dioxide BUN 132 H Creatinine 2.6 H Glucose 128 H POC Glucose Lactic Acid Phosphorus Magnesium AST 207 H ALT 144 H Alkaline Phosphatase 529 H Ammonia Total Creatine Kinase CK-MB (CK-2) NT-Pro-B Natriuret Pep Total Protein 6.1 L Albumin 2.4 L Free T4 Urine Creatinine Urine Chloride Crossmatch 03/06/19 03/06/19 03/06/19 05:35 13:06 15:20 WBC RBC Hgb Hct MCH MCHC RDW Plt Count Lymph % (Auto) [place] # Seg Neutrophils % Seg Neuts % (Manual) Lymphocytes % (Manual) Nucleated RBC % Seg Neutrophils # Seg Neutrophils # Man Lymphocytes # (Manual) INR D-Dimer POC ABG pH 7.263 L ABG pH POC ABG pCO2 64.7 H POC ABG pO2 67 L ABG pO2 ABG HCO3 ABG O2 Saturation ABG Base Excess ABG Hemoglobin Oxyhemoglobin Sodium Potassium Chloride Carbon Dioxide BUN Creatinine Glucose POC Glucose 113 H 123 H Lactic Acid Phosphorus Magnesium AST ALT Alkaline Phosphatase Ammonia Total Creatine Kinase CK-MB (CK-2) NT-Pro-B Natriuret Pep Total Protein Albumin Free T4 Urine Creatinine Urine Chloride Crossmatch 03/06/19 03/07/19 03/07/19 23:33 04:34 05:13 WBC RBC Hgb Hct MCH MCHC RDW Plt Count Lymph % (Auto) [place] # Seg Neutrophils % Seg Neuts % (Manual) Lymphocytes % (Manual) Nucleated RBC % Seg Neutrophils # Seg Neutrophils # Man Lymphocytes # (Manual) INR D-Dimer POC ABG pH 7.258 L ABG pH POC ABG pCO2 65.6 H POC ABG pO2 73 L ABG pO2 ABG HCO3 ABG O2 Saturation ABG Base Excess ABG Hemoglobin Oxyhemoglobin Sodium Potassium Chloride Carbon Dioxide BUN Creatinine Glucose POC Glucose 141 H 122 H Lactic Acid Phosphorus Magnesium AST ALT Alkaline Phosphatase Ammonia Total Creatine Kinase CK-MB (CK-2) NT-Pro-B Natriuret Pep Total Protein Albumin Free T4 Urine Creatinine Urine Chloride Crossmatch Chest x-ray: image reviewed (improved RUL aereation) Allied health notes reviewed: RT
[2019-03-07] MEDS: MEROPENEM/NS 1 GRAM/100 ML 1 GRAM/100 ML BAG IV SCH ×2 (10:34→21:50)
[2019-03-07] MEDS: FAMOTIDINE 20 MG TAB PO SCH (10:35)
[2019-03-07] MEDS: ENOXAPARIN 30 MG/0.3 ML INJ SUB-Q SCH (10:35)
[2019-03-07] MEDS: LACTULOSE 20 GM/30 ML ORAL LIQD PO SCH ×2 (10:35→21:50)
[2019-03-07] MEDS: NORepinephrine/NS 4 MG-250 ML 4 MG/250 ML BAG IV SCH (11:30)
--- NOTE | 2019-03-07 12:15 | Progress Note ---
Assessment and Plan Cultures: Blood culture 02/27/19 no growth to date Urine culture 02/27/19 no growth to date Throacentesis culture 02/28/19 - no growth, no orgs on gram stain. 03/02/2019 sputum: olive albicans Assessment: 49 yo F PMHx metastatic breast cancer admitted with worsening shortness of breath. 1. Acute sepsis with shock - with tachycardia and leukocytosis. On and off pressors. Likely secondary to pneumonia. Breast wound looks clean. 2. B/L Pneumonia - difficult to tell with imaging. S/P thoracentesis, no growth on culture. Sputum with Olive - colonization. 3. Large breast wound - no obvious purulence and family denies any issues with the wound at this time. Obvious risk for infection, but at present appears stable. 4. Metastatic breast cancer 5. SELAM: Creatinine worsening. Renally adjust abx. Nephrology following 6. Worsening LFTs and alkaline phosphatase, bilirubin normal. ?shock liver v/s mets. RUQ US suggestive of contracted gall bladder, multiple gall stones with possible chronic cholecystitis. Recs: Continue IV Meropenem, renally adjusted D4 today recheck CBC, CMP in AM HIDA also ordered and d/w Dr. Meehan Overall extremely poor prognosis Sebastien Perkins MD, FACP [facility] ([facility] M: [phone] O: [phone] F: [phone] Subjective Date of service: 03/07/19 Principal diagnosis: Ac. hypoxemic resp failure; Sev Sepsis; R. pleural effusion; Met. breast CA Interval history: Remains afebrile. Still on the vent, sedated. Back on pressors. Discussed with RN. Objective - Exam Narrative Exam: Physical Exam: Constitutional: sedated, intubated Head, Ears, Nose: Normocephalic, atraumatic. External ears, nose normal Eyes: Conjunctivae/corneas clear. No icterus. No ptosis. Neck: intubated Oral: intubated Cardiovascular: S1, S2 normal. Respiratory: Good air entry, clear to auscultation bilaterally GI: Soft, non-tender; bowel sounds normal. No peritoneal signs Musculoskeletal: No pedal edema, no cyanosis. Skin: large left breast wound + with dressing Hem/Lymphatic: No palpable cervical or supraclavicular nodes. No lymphangitis Psych: sedated Neurological: sedated, intubated, on vent - Constitutional Vitals: Vital Signs Temp Pulse Resp BP Pulse Ox 98.4 F 99 H 29 H 110/56 95 03/07/19 08:00 03/07/19 11:15 03/07/19 11:15 03/07/19 11:15 03/07/19 11:15 Temperature -Last 24 Hours Temperature 98.4 F Temperature 98.8 F Temperature 97.6 F Temperature 97.3 F Temperature 98.1 F - Labs CBC & Chem 7: 03/06/19 04:55 03/06/19 04:55 Labs: Abnormal lab results 03/06/19 03/06/19 03/06/19 Range/Units 13:06 15:20 23:33 POC ABG pH 7.263 L (7.35-7.45) POC ABG pCO2 64.7 H (35-45) POC ABG pO2 67 L (80-105) POC Glucose 123 H 141 H (70-105) 03/07/19 03/07/19 03/07/19 Range/Units 04:34 05:13 11:47 POC ABG pH 7.258 L (7.35-7.45) POC ABG pCO2 65.6 H (35-45) POC ABG pO2 73 L (80-105) POC Glucose 122 H 128 H (70-105) - Imaging and cardiology Chest x-ray: report reviewed, image reviewed (bilateral airspace opacities) US - abdomen: report reviewed (multiple gall stones, possible chronic cholecysti tis.)
--- NOTE | 2019-03-07 13:10 | Progress Note ---
Assessment and Plan Assessment and plan: - Acute respiratory failure with hypoxia. Intubated and on MVS 03/01/19 Pulmonary following - Sepsis with shock. Continue per ID recommendation. Continue IV Meropenem, - Bilateral pneumonia Throacentesis culture 02/28/19 - no growth, no orgs on gram stain. 03/02/2019 sputum: gianfranco albicans ID following - Recurrent malignant pleural effusion s/p thoracentesis - Left breast cancer with mets to the bones and liver s/p surgery Dr. Self following Local W[facility] care. - ? Heart failure Echocardiogram revealed left ventricular size normal with no pericardial effusion Shock liver -Elevated LFTs and alkaline phosphatase. Right upper quadrant ultrasound pending - Hyperammonemia Cont lactulose as needed - Hypernatrmia Free water via [place] - Hypertension Monitor BP - ELevated D- dimer CT angio was negative for PE - Poor prognosis. The high probability of a clinically significant, sudden or life threatening deterioration of the [respiratory neurological] system(s) required my full and direct attention, intervention and personal management. The aggregate critical care time was [31] minutes. This time is in addition to time spent performing reported procedures but includes the following: [x] Data Review and interpretation [x] Patient assessment and monitoring of vital signs [x] Documentation [x] Medication orders and management History Interval history: No new issues overnight. Hospitalist Physical - Constitutional Vitals: Temp Pulse Resp BP Pulse Ox 98.4 F 99 H 29 H 110/56 95 03/07/19 08:00 03/07/19 11:15 03/07/19 11:15 03/07/19 11:15 03/07/19 11:15 General appearance: Present: other (intubated) - EENT Eyes: Present: PERRL, EOM intact ENT: hearing intact, clear oral mucosa, dentition normal - Neck Neck: Present: supple, normal ROM - Respiratory Respiratory effort: normal Respiratory: bilateral: CTA - Cardiovascular Rhythm: regular Heart Sounds: Present: S1 & S2. Absent: gallop, rub - Extremities Extremities: no ischemia, No edema, Full ROM - Abdominal General gastrointestinal: soft, non-tender, non-distended, normal bowel sounds - Integumentary Integumentary: Present: clear, warm, dry - Neurologic Neurologic: CNII-XII intact, moves all extremities Results - Labs CBC & Chem 7: 03/06/19 04:55 03/06/19 04:55 Labs: Laboratory Last Values WBC 26.5 K/mm3 (4.5-11.0) H 03/06/19 04:55 RBC 3.28 M/mm3 (3.65-5.03) L 03/06/19 04:55 Hgb 7.7 gm/dl (10.1-14.3) L 03/06/19 04:55 Hct 26.4 % (30.3-42.9) L 03/06/19 04:55 MCV 81 fl (79-97) 03/06/19 04:55 MCH 24 pg (28-32) L 03/06/19 04:55 MCHC 29 % (30-34) L 03/06/19 04:55 RDW 23.0 % (13.2-15.2) H 03/06/19 04:55 Plt Count 272 K/mm3 (140-440) 03/06/19 04:55 Lymph % (Auto) Machine Feed Operator 03/04/19 04:38 [place] % (Auto) Machine Feed Operator 03/04/19 04:38 Eos % (Auto) Machine Feed Operator 03/04/19 04:38 Baso % (Auto) Machine Feed Operator 03/04/19 04:38 Lymph # Machine Feed Operator 03/04/19 04:38 [place] # Machine Feed Operator 03/04/19 04:38 Eos # Machine Feed Operator 03/04/19 04:38 Baso # Machine Feed Operator 03/04/19 04:38 Add Manual Diff Complete 03/06/19 04:55 Total Counted 100 03/06/19 04:55 Seg Neutrophils % Machine Feed Operator 03/06/19 04:55 Seg Neuts % (Manual) 98.0 % (40.0-70.0) H 03/06/19 04:55 Band Neutrophils % 0 % 03/06/19 04:55 Lymphocytes % (Manual) 2.0 % (13.4-35.0) L 03/06/19 04:55 Reactive Lymphs % (Man) 0 % 03/06/19 04:55 Monocytes % (Manual) 0 % (0.0-7.3) 03/06/19 04:55 Eosinophils % (Manual) 0 % (0.0-4.3) 03/06/19 04:55 Basophils % (Manual) 0 % (0.0-1.8) 03/06/19 04:55 Metamyelocytes % 0 % 03/06/19 04:55 Myelocytes % 0 % 03/06/19 04:55 Promyelocytes % 0 % 03/06/19 04:55 Blast Cells % 0 % 03/06/19 04:55 Nucleated RBC % 2.0 % (0.0-0.9) H 03/06/19 04:55 Seg Neutrophils # Machine Feed Operator 03/04/19 04:38 Seg Neutrophils # Man 26.0 K/mm3 (1.8-7.7) H 03/06/19 04:55 Band Neutrophils # 0.0 K/mm3 03/06/19 04:55 Lymphocytes # (Manual) 0.5 K/mm3 (1.2-5.4) L 03/06/19 04:55 Abs React Lymphs (Man) 0.0 K/mm3 03/06/19 04:55 Monocytes # (Manual) 0.0 K/mm3 (0.0-0.8) 03/06/19 04:55 Eosinophils # (Manual) 0.0 K/mm3 (0.0-0.4) 03/06/19 04:55 Basophils # (Manual) 0.0 K/mm3 (0.0-0.1) 03/06/19 04:55 Metamyelocytes # 0.0 K/mm3 03/06/19 04:55 Myelocytes # 0.0 K/mm3 03/06/19 04:55 Promyelocytes # 0.0 K/mm3 03/06/19 04:55 Blast Cells # 0.0 K/mm3 03/06/19 04:55 WBC Morphology Not Reportable 03/06/19 04:55 Hypersegmented Neuts Not Reportable 03/06/19 04:55 Hyposegmented Neuts Not Reportable 03/06/19 04:55 Hypogranular Neuts Not Reportable 03/06/19 04:55 Smudge Cells Not Reportable 03/06/19 04:55 Toxic Granulation Not Reportable 03/06/19 04:55 Toxic Vacuolation Not Reportable 03/06/19 04:55 Dohle Bodies Not Reportable 03/06/19 04:55 Pelger-Huet Anomaly Not Reportable 03/06/19 04:55 Amelie Rods Not Reportable 03/06/19 04:55 Platelet Estimate Consistent w auto 03/06/19 04:55 Clumped Platelets Not Reportable 03/06/19 04:55 Plt Clumps, EDTA Not Reportable 03/06/19 04:55 Large Platelets Rare 03/06/19 04:55 Giant Platelets Not Reportable 03/06/19 04:55 Platelet Satelliting Not Reportable 03/06/19 04:55 Plt Morphology Comment Not Reportable 03/06/19 04:55 RBC Morphology Not Reportable 03/06/19 04:55 Dimorphic RBCs Not Reportable 03/06/19 04:55 Polychromasia Not Reportable 03/06/19 04:55 Hypochromasia 1+ 03/06/19 04:55 Poikilocytosis Not Reportable 03/06/19 04:55 Anisocytosis 1+ 03/06/19 04:55 Microcytosis Not Reportable 03/06/19 04:55 Macrocytosis Not Reportable 03/06/19 04:55 Spherocytes Not Reportable 03/06/19 04:55 Pappenheimer Bodies Not Reportable 03/06/19 04:55 Sickle Cells Not Reportable 03/06/19 04:55 Target Cells Rare 03/06/19 04:55 Tear Drop Cells Not Reportable 03/06/19 04:55 Ovalocytes Not Reportable 03/06/19 04:55 Stomatocytes 1+ 03/03/19 05:00 Helmet Cells Not Reportable 03/06/19 04:55 Massey-Elfrida Bodies Not Reportable 03/06/19 04:55 [place] Rings Not Reportable 03/06/19 04:55 [place] Cells Not Reportable 03/06/19 04:55 Bite Cells Not Reportable 03/06/19 04:55 Crenated Cell Not Reportable 03/06/19 04:55 Elliptocytes Not Reportable 03/06/19 04:55 Acanthocytes (Spur) Not Reportable 03/06/19 04:55 Rouleaux Not Reportable 03/06/19 04:55 Hemoglobin C Crystals Not Reportable 03/06/19 04:55 Schistocytes Not Reportable 03/06/19 04:55 Malaria parasites Not Reportable 03/06/19 04:55 Jose Bodies Not Reportable 03/06/19 04:55 Hem Pathologist Commnt No 03/06/19 04:55 PT 14.8 Sec. (12.2-14.9) 02/27/19 12:38 INR 1.17 (0.87-1.13) H 02/27/19 12:38 APTT 26.9 Sec. (24.2-36.6) 02/27/19 12:38 D-Dimer 5778.32 ng/mlDDU (0-234) H 02/27/19 12:38 POC ABG pH 7.258 (7.35-7.45) L 03/07/19 04:34 ABG pH 7.335 pH Units (7.350-7.450) L 03/03/19 05:25 POC ABG pCO2 65.6 (35-45) H 03/07/19 04:34 ABG pCO2 61.3 mm Hg 03/03/19 05:25 POC ABG pO2 73 (80-105) L 03/07/19 04:34 ABG pO2 89.2 mm Hg (80.0-90.0) 03/03/19 05:25 POC ABG HCO3 29.3 (22-26 mml/L) 03/07/19 04:34 ABG HCO3 32.0 mmol/L (20.0-26.0) H 03/03/19 05:25 POC ABG Total CO2 31 (23-27mmol/L) 03/07/19 04:34 POC ABG O2 Sat 91 03/07/19 04:34 ABG O2 Saturation 97.0 % (95.0-99.0) 03/03/19 05:25 ABG O2 Content 11.1 (0.0-44) 03/03/19 05:25 POC ABG Base Excess 2 ((-2) - (+3)mmol/L) 03/07/19 04:34 ABG Base Excess 5.2 mmol/L (-2.0-3.0) H 03/03/19 05:25 ABG Hemoglobin 8.2 gm/dl (12.0-16.0) L 03/03/19 05:25 ABG Carboxyhemoglobin 1.7 % (0.0-5.0) 03/03/19 05:25 ABG Methemoglobin 0.5 % (0.0-1.5) 03/03/19 05:25 Oxyhemoglobin 94.9 % (95.0-99.0) L 03/03/19 05:25 FiO2 70 % 03/07/19 04:34 Sodium 147 mmol/L (137-145) H 03/06/19 04:55 Potassium 5.0 mmol/L (3.6-5.0) 03/06/19 04:55 Chloride 106.0 mmol/L (98-107) 03/06/19 04:55 Carbon Dioxide 26 mmol/L (22-30) 03/06/19 04:55 Anion Gap 20 mmol/L 03/06/19 04:55 BUN 132 mg/dL (7-17) H 03/06/19 04:55 Creatinine 2.6 mg/dL (0.7-1.2) H 03/06/19 04:55 Estimated GFR 23 ml/min 03/06/19 04:55 BUN/Creatinine Ratio 51 % 03/06/19 04:55 Glucose 128 mg/dL (65-100) H 03/06/19 04:55 POC Glucose 128 (70-105) H 03/07/19 11:47 Lactic Acid 2.30 mmol/L (0.7-2.0) H* 02/27/19 18:12 Calcium 9.3 mg/dL (8.4-10.2) 03/06/19 04:55 Phosphorus 3.30 mg/dL (2.5-4.5) D 03/03/19 05:00 Magnesium 2.90 mg/dL (1.7-2.3) H 03/03/19 05:00 Total Bilirubin < 0.20 mg/dL (0.1-1.2) 03/06/19 04:55 Direct Bilirubin < 0.2 mg/dL (0-0.2) 02/27/19 11:33 Indirect Bilirubin 0.0 mg/dL 02/27/19 11:33 AST 207 units/L (5-40) H 03/06/19 04:55 ALT 144 units/L (7-56) H 03/06/19 04:55 Alkaline Phosphatase 529 units/L (35-129) H 03/06/19 04:55 Ammonia 51.0 umol/L (25-60) 03/06/19 04:55 Total Creatine Kinase 197 units/L (30-135) H 02/27/19 11:33 CK-MB (CK-2) 4.1 ng/mL (0.0-4.0) H 02/27/19 11:33 CK-MB (CK-2) Rel Index 2.0 (0-4) 02/27/19 11:33 Troponin T 0.027 ng/mL (0.00-0.029) 03/02/19 05:27 NT-Pro-B Natriuret Pep 2143 pg/mL (0-900) H 03/02/19 05:27 Total Protein 6.1 g/dL (6.3-8.2) L 03/06/19 04:55 Albumin 2.4 g/dL (3.9-5) L 03/06/19 04:55 Albumin/Globulin Ratio 0.6 % 03/06/19 04:55 Procalcitonin 2.22 ng/mL (<0.15) 03/02/19 17:00 TSH 0.427 mlU/mL (0.270-4.200) 03/03/19 15:54 Free T4 0.50 ng/dL (0.76-1.46) L 03/03/19 15:54 Urine Color [place] (Yellow) 03/04/19 12:39 Urine Turbidity Turbid (Clear) 03/04/19 12:39 Urine pH 5.0 (5.0-7.0) 03/04/19 12:39 Ur Specific [place] 1.023 (1.003-1.030) 03/04/19 12:39 Urine Protein 30 mg/dl mg/dL (Negative) 03/04/19 12:39 Urine Glucose (UA) Neg mg/dL (Negative) 03/04/19 12:39 Urine Ketones Tr mg/dL (Negative) 03/04/19 12:39 Urine Blood Mod (Negative) 03/04/19 12:39 Urine Nitrite Neg (Negative) 03/04/19 12:39 Urine Bilirubin Neg (Negative) 03/04/19 12:39 Urine Urobilinogen < 2.0 mg/dL (<2.0) 03/04/19 12:39 Ur Leukocyte Esterase Neg (Negative) 03/04/19 12:39 Urine WBC (Auto) 2.0 /HPF (0.0-6.0) 03/04/19 12:39 Urine RBC (Auto) 3.0 /HPF (0.0-6.0) 03/04/19 12:39 U Epithel Cells (Auto) 1.0 /HPF (0-13.0) 02/27/19 Unknown Urine Bacteria (Auto) 1+ /HPF (Negative) 03/04/19 12:39 WBC Casts 1 /LPF 02/27/19 Unknown Urine Mucus Few /HPF 03/04/19 12:39 Urine Creatinine 185.9 mg/dL (0.1-20.0) H 03/04/19 12:39 Urine Sodium 13 mmol/L 03/04/19 12:39 Urine Chloride 10.2 mmolL (110-250) L 03/04/19 12:39 Blood Type O POSITIVE 02/27/19 11:45 Antibody Screen Negative 02/27/19 11:45 Crossmatch See Detail 02/27/19 11:45 Active Medications - Current Medications Current Medications: Generic Name Dose Route Start Last Admin Trade Name Freq PRN Reason Stop Dose Admin Acetaminophen 650 mg 03/02/19 13:46 03/02/19 15:38 Tylenol PO 650 mg Q6H PRN Administration Fever >101 Albuterol 2.5 mg 02/27/19 21:08 02/28/19 12:35 Proventil IH 2.5 mg Q4HRT PRN Administration Shortness Of Breath Albuterol/Ipratropium 1 ampul 02/28/19 08:00 03/07/19 08:22 Duoneb *Not For Prn Use* IH 1 ampul TIDRT MANISH Administration Lipase/Protease/Amylase 1 each 03/03/19 08:54 Pancreanna Zamora 10,500 Unit FEEDTUBE PRN PRN For Clogged Feeding Tube Enoxaparin Sodium 30 mg 03/04/19 10:00 03/07/19 10:35 Enoxaparin SUB-Q 30 mg QDAY MANISH Administration Famotidine 20 mg 03/05/19 10:00 03/07/19 10:35 Pepcid PO 20 mg DAILY MANISH Administration Hydrophilic Ointment 1 applic 03/02/19 04:40 Vaseline Lip Therapy TP Q2HR PRN Dry Lips Norepinephrine 4 mg in 250 mls @ 7.5 mls/hr 03/02/19 05:00 03/07/19 11:30 Levophed Drip 4 Mg/Ns 250 Ml IV 2 mcg/min TITR MANISH 7.5 mls/hr Administration Protocol 2 MCG/MIN Vasopressin 20 unit/ Sodium 101 mls @ 9.09 mls/hr 03/02/19 05:00 03/05/19 10:32 Chloride IV 0 units/min TITR MANISH 0 mls/hr Titration Protocol 0.03 UNITS/MIN Fentanyl Citrate 2,000 mcg in 100 mls @ 4.64 mls/hr 03/02/19 17:00 03/07/19 06:29 Fentanyl Drip Premix IV 4 mcg/kg/hr TITR MANISH 18.56 mls/hr Administration Protocol 1 MCG/KG/HR MEROPENEM/NS 1 GRAM/100 ML 1 gram in 100 mls @ 100 mls/hr 03/04/19 14:00 03/07/19 10:34 Merrem/Ns 1 Gram/100 Ml IV 100 mls/hr Q12HR MANISH Administration Protocol Propofol 1,000 mg in 100 mls @ 2.844 mls/hr 03/06/19 13:00 03/07/19 12:55 Diprivan 10 Mg/Ml IV 20 mcg/kg/min TITR MANISH 11.376 mls/hr Titration Protocol 5 MCG/KG/MIN Insulin Human Lispro 0 unit 03/04/19 13:00 03/07/19 09:06 Humalog SUB-Q Not Given Q6HR [facility] Protocol Lactulose 20 gm 03/02/19 10:00 03/07/19 10:35 Cephulac PO 20 gm Q12HR MANISH Administration Methylprednisolone Sodium Succinate 40 mg 03/05/19 14:00 03/07/19 13:01 Solu-Medrol IV 40 mg Q8HR [facility] Administration Multi-Ingred Cream/Lotion/Oil/Oint 1 applic 03/02/19 16:43 Artificial Tears Ophth Oint OU Q4HR PRN Dry Eye(s) Simple Syrup 15 ml 03/03/19 08:54 Simple Syrup FEEDTUBE PRN PRN Hypoglycemia Simple Syrup 30 ml 03/03/19 08:54 Simple Syrup FEEDTUBE PRN PRN Hypoglycemia Sodium Bicarbonate 325 mg 03/03/19 08:54 Sodium Bicarbonate FEEDTUBE PRN PRN For Clogged Feeding Tube Nutrition/Malnutrition Assess - Dietary Evaluation Nutrition/Malnutrition Findings: Nutrition Notes Start: 02/28/19 13:21 Freq: Status: Active Protocol: Document 03/07/19 10:52 CC (Rec: 03/07/19 10:57 CC [email or web address]) Co-Sign 03/07/19 10:52 LP Nutrition Notes Initial or Follow up Reassessment Current Diagnosis Acute Kidney Injury,Sepsis, Respiratory Failure Other Pertinent Diagnosis Breast CA stage 4, Pneumonia, SIRS, L breast surgical wound Current Diet Nepro at 40ml/hr Labs/Tests Na 147 BUN 132 Creat 2.6 Pertinent Medications Propofol (gives 75 kcal) Solumedrol Height 5 ft 2 in Weight 94.8 kg [place] Body Weight (kg) 50.00 BMI 38.2 Subjective/Other Information Nepro running at goal rate of 40ml/hr. tolerating TF Percent of energy/protein needs met: 100%/78% Burn Absent Trauma Absent Current % PO Negligible Minimum of two criteria No physical signs of malnutrition #2 Nutrition Diagnosis Inadequate oral intake Diagnosis Progress(for reassessment Continues documentation) Is patient on ventilator? Yes Is Patient Ambulatory and/or Out of Bed No REE-([facility]-confined to bed) 1823.256 Kcal/Kg value to use for calculation 16 Approximate Energy Requirements Using 1517 kcal/Kg Calculation Used for Recommendations Kcal/kg Additional Notes PRO needs: 100g (2g/kg IBW 50 kg) Fluid needs: 1ml/kcal or per MD Nutrition Intervention Change Diet Order: continue TF Nutrition Support: Nepro at 40 ml/hr Flush 250 mls q4hr until hypernatremia resolves Flush 150 mls q4hr once hypernatremia resolves Goal #1 Continue to meet at least 75% of energy and protein needs via TF Goal #2 TF tolerance Anticipated Discharge Needs: Unable to determine at this time Follow-Up By: 03/11/19 Additional Comments F/U for TF tolerance, Na labs
[2019-03-07] MEDS ORDERED: FUROSEMIDE 40 MG/4 ML INJ IV ONE (16:00)
--- NOTE | 2019-03-08 03:09 | XRay Report ---
CHEST 1 VIEW INDICATION: follow up respiratory failure. COMPARISON: Previous day. FINDINGS: Support devices: Unchanged. Heart: Within normal limits. Lungs/Pleura: Diffuse bilateral opacities remain with overall mild worsening. Additional findings: None. IMPRESSION: Mild worsening. Signer Name: Devon Quinones MD Signed: 03/08/2019 3:05 AM Workstation Name: [id number]
[2019-03-08] MEDS: NORepinephrine/NS 4 MG-250 ML 4 MG/250 ML BAG IV SCH ×2 (03:56→21:14)
[2019-03-08] MEDS: fentaNYL DRIP Premix 2,000 MCG/100 ML BAG IV SCH ×4 (03:59→21:12)
[2019-03-08] MEDS: methylPREDNISolone Sod Succinate 40 MG/1 ML INJ IV SCH ×3 (05:07→21:13)
[2019-03-08] MEDS: INSULIN LISPRO 100 UNIT/ML SUB-Q SCH ×5 (05:08→23:52)
[2019-03-08 07:22] LABS: Albumin 2.5 g/dL (3.9-5); Calcium 9.2 mg/dL (8.4-10.2)
[2019-03-08 07:36] LABS: Mean Corpuscular HGB Conc 29 % (30-34); Mean Corpuscular Volume 81 fl (79-97); Platelet Count 316 K/mm3 (140-440); Red Blood Count 3.35 M/mm3 (3.65-5.03)
[2019-03-08 07:40] LABS: Hemoglobin 7.9 gm/dl (10.1-14.3)
[2019-03-08] MEDS: PROPOFOL 1,000 MG/100 ML BOTTLE IV SCH ×2 (08:03→23:51)
[2019-03-08] MEDS: IPRATROPIUM/ALBUTEROL SULFATE 3 ML AMPUL.NEB IH SCH ×3 (08:10→20:17)
[2019-03-08 09:20] LABS: Basophils % (Manual) 0 % (0.0-1.8); Eosinophils % (Manual) 0 % (0.0-4.3); Total Cells Counted 100
[2019-03-08 09:21] LABS: Platelet Estimate Consistent w Auto; Target Cells Few; Tear Drop Cells Few
[2019-03-08 09:22] LABS: Hypochromasia 2+
[2019-03-08] MEDS: LACTULOSE 20 GM/30 ML ORAL LIQD PO SCH ×2 (09:22→21:13)
[2019-03-08] MEDS: MEROPENEM/NS 1 GRAM/100 ML 1 GRAM/100 ML BAG IV SCH ×2 (09:22→21:13)
[2019-03-08] MEDS: FAMOTIDINE 20 MG TAB PO SCH (09:23)
[2019-03-08] MEDS ORDERED: INSULIN REGULAR, HUMAN 100 UNITS/1 ML IV ONE (09:33)
[2019-03-08] MEDS ORDERED: SODIUM BICARB 8.4% 50 MEQ/50 ML SYRINGE IV ONE ×2 (09:37→09:40)
[2019-03-08] MEDS ORDERED: CALCIUM GLUCONATE 1,000 MG in SODIUM CHLORIDE 0.9% 100 ML IV ONE (09:38)
[2019-03-08] MEDS ORDERED: DEXTROSE 50% IN WATER (25GM) 50 ML SYRINGE IV ONE ×2 (09:49→10:09)
--- NOTE | 2019-03-08 10:07 | Progress Note ---
Assessment and Plan - Patient Problems (1) SELAM (acute kidney injury) Current Visit: Yes Status: Acute Plan to address problem: (1) SELAM (acute kidney injury) Current Visit: Yes Status: Acute Plan to address problem: Likely due to severe pre-renal injury/ATN in the setting of sepsis/ARDS. Maintain adequate hemodynamic parameters, pressor support to maintain HgB >7.0. Avoid nephrotoxins. Patient has an overall poor prognosis considering her other underlying comorbidities, especially metastatic breast cancer, and would not be an ideal candidate for renal replacement initiation. pending complement levels and ANCA panel to current workup to r/o possible GN etiologies for renal insufficiency, both of which are pending at this time, but likely this is ATN. (2) Hyperkalemia Current Visit: Yes Status: Acute Plan to address problem: initiated D50, IV insulin, bicarb IVP, IV lasix 80mg once; will also initiate bicarb gtt at 50ml/hr. if hyperkalemia is refractory to medical treatment will need to discuss renal replacement therapy with family, however pt with overall poor prognosis and would not be an ideal candidate for senior care HD. (3) Acidosis Current Visit: Yes Status: Acute Plan to address problem: mixed resp + metabolic acidosis, cont vent management as per ICU team. initiated bicarb IVP and gtt. (4) Acute respiratory failure Current Visit: Yes Status: Acute Qualifiers: Respiratory failure complication: hypoxia Qualified Code(s): J96.01 - Acute respiratory failure with hypoxia Plan to address problem: Intubated at this time. Vent management per pulmonary (5) Anemia Current Visit: Yes Status: Acute Qualifiers: Anemia type: unspecified type Qualified Code(s): D64.9 - Anemia, unspecified Plan to address problem: Transfuse to maintain Hgb>7.0 (6) Hypernatremia Current Visit: Yes Status: Acute Plan to address problem: Improving at this time. Will continue to closely monitor. Continues on free water flushes with Dobbhoff at 300 mL every 4 hours (7) Sepsis Current Visit: Yes Status: Acute Qualifiers: Sepsis type: sepsis due to unspecified organism Sepsis acute organ dysfunction status: unspecified Qualified Code(s): A41.9 - Sepsis, unspecified organism Plan to address problem: Continue on current antibiotic regimen, pressor support, to maintain MAP >65mm Hg. Please ensure that antibiotics are dosed appropriately for diminished renal function. (8) Pneumonia Current Visit: Yes Status: Suspected Qualifiers: Pneumonia type: due to unspecified organism Laterality: bilateral Lung location: unspecified part of lung Qualified Code(s): J18.9 - Pneumonia, unspecified organism Plan to address problem: Infectious disease consult noted, antibiotics dosed per current renal parameters/renal function. Cultures noted, Olive albicans noted from sputum culture. Subjective Date of service: 03/08/19 Principal diagnosis: Ac. hypoxemic resp failure; Sev Sepsis; R. pleural effusion; Met. breast CA Interval history: pt remains intubated, sedated. elevate K noted this AM, initiated medical management Objective - Vital Signs Vital signs: Vital Signs - 12hr 03/07/19 03/07/19 03/07/19 22:15 22:30 22:45 Temperature Pulse Rate 105 H 105 H 105 H Pulse Rate [ Anterior Throughout] Pulse Rate [ Apical] Pulse Rate [ From Monitor] Pulse Rate [ Left Dorsalis Pedis] Pulse Rate [ Radial] Pulse Rate [ Right Dorsalis Pedis] Respiratory 31 H 29 H 25 H Rate Respiratory Rate [Anterior Throughout] Blood Pressure 118/64 120/62 121/59 O2 Sat by Pulse 90 90 87 Oximetry 03/07/19 03/07/19 03/07/19 23:00 23:15 23:30 Temperature Pulse Rate 103 H 103 H 103 H Pulse Rate [ Anterior Throughout] Pulse Rate [ Apical] Pulse Rate [ From Monitor] Pulse Rate [ Left Dorsalis Pedis] Pulse Rate [ Radial] Pulse Rate [ Right Dorsalis Pedis] Respiratory 29 H 29 H 30 H Rate Respiratory Rate [Anterior Throughout] Blood Pressure 120/61 119/61 115/60 O2 Sat by Pulse 87 88 96 Oximetry 03/07/19 03/07/19 03/07/19 23:33 23:45 23:54 Temperature 98.8 F Pulse Rate 102 H 104 H Pulse Rate [ Anterior Throughout] Pulse Rate [ Apical] Pulse Rate [ From Monitor] Pulse Rate [ Left Dorsalis Pedis] Pulse Rate [ Radial] Pulse Rate [ Right Dorsalis Pedis] Respiratory 28 H 24 Rate Respiratory Rate [Anterior Throughout] Blood Pressure 116/62 119/61 O2 Sat by Pulse 96 92 Oximetry 03/08/19 03/08/19 03/08/19 00:00 00:08 00:15 Temperature Pulse Rate 103 H 103 H 101 H Pulse Rate [ Anterior Throughout] Pulse Rate [ 103 H Apical] Pulse Rate [ 103 H From Monitor] Pulse Rate [ 103 H Left Dorsalis Pedis] Pulse Rate [ 103 H Radial] Pulse Rate [ 103 H Right Dorsalis Pedis] Respiratory 30 H 22 Rate Respiratory Rate [Anterior Throughout] Blood Pressure 117/60 117/60 124/64 O2 Sat by Pulse 93 92 91 Oximetry 03/08/19 03/08/19 03/08/19 00:30 00:45 00:52 Temperature Pulse Rate 103 H 104 H Pulse Rate [ Anterior Throughout] Pulse Rate [ Apical] Pulse Rate [ From Monitor] Pulse Rate [ Left Dorsalis Pedis] Pulse Rate [ Radial] Pulse Rate [ Right Dorsalis Pedis] Respiratory 29 H 25 H 16 Rate Respiratory Rate [Anterior Throughout] Blood Pressure 116/63 115/62 O2 Sat by Pulse 93 91 Oximetry 03/08/19 03/08/19 03/08/19 01:00 01:15 01:30 Temperature Pulse Rate 104 H 105 H 105 H Pulse Rate [ Anterior Throughout] Pulse Rate [ Apical] Pulse Rate [ From Monitor] Pulse Rate [ Left Dorsalis Pedis] Pulse Rate [ Radial] Pulse Rate [ Right Dorsalis Pedis] Respiratory 31 H 32 H 16 Rate Respiratory Rate [Anterior Throughout] Blood Pressure 122/59 122/58 122/58 O2 Sat by Pulse 92 92 93 Oximetry 03/08/19 03/08/19 03/08/19 01:45 02:00 02:15 Temperature Pulse Rate 104 H 104 H 101 H Pulse Rate [ Anterior Throughout] Pulse Rate [ 102 H Apical] Pulse Rate [ 102 H From Monitor] Pulse Rate [ 102 H Left Dorsalis Pedis] Pulse Rate [ 102 H Radial] Pulse Rate [ 102 H Right Dorsalis Pedis] Respiratory 29 H 29 H 31 H Rate Respiratory Rate [Anterior Throughout] Blood Pressure 107/59 109/59 93/48 O2 Sat by Pulse 92 97 81 L Oximetry 03/08/19 03/08/19 03/08/19 02:30 02:45 03:00 Temperature Pulse Rate 105 H 108 H 103 H Pulse Rate [ Anterior Throughout] Pulse Rate [ Apical] Pulse Rate [ From Monitor] Pulse Rate [ Left Dorsalis Pedis] Pulse Rate [ Radial] Pulse Rate [ Right Dorsalis Pedis] Respiratory 25 H 30 H 30 H Rate Respiratory Rate [Anterior Throughout] Blood Pressure 112/58 108/59 114/56 O2 Sat by Pulse 93 95 96 Oximetry 03/08/19 03/08/19 03/08/19 03:15 03:30 03:43 Temperature 98.2 F Pulse Rate 104 H 104 H Pulse Rate [ Anterior Throughout] Pulse Rate [ Apical] Pulse Rate [ From Monitor] Pulse Rate [ Left Dorsalis Pedis] Pulse Rate [ Radial] Pulse Rate [ Right Dorsalis Pedis] Respiratory 27 H 29 H Rate Respiratory Rate [Anterior Throughout] Blood Pressure 118/56 124/57 O2 Sat by Pulse 96 97 Oximetry 03/08/19 03/08/19 03/08/19 03:45 04:00 04:15 Temperature Pulse Rate 104 H 104 H 104 H Pulse Rate [ Anterior Throughout] Pulse Rate [ 105 H Apical] Pulse Rate [ 105 H From Monitor] Pulse Rate [ 105 H Left Dorsalis Pedis] Pulse Rate [ 105 H Radial] Pulse Rate [ 105 H Right Dorsalis Pedis] Respiratory 30 H 31 H 30 H Rate Respiratory Rate [Anterior Throughout] Blood Pressure 108/55 117/58 119/64 O2 Sat by Pulse 97 97 97 Oximetry 03/08/19 03/08/19 03/08/19 04:30 04:45 05:00 Temperature Pulse Rate 104 H 103 H 104 H Pulse Rate [ Anterior Throughout] Pulse Rate [ Apical] Pulse Rate [ From Monitor] Pulse Rate [ Left Dorsalis Pedis] Pulse Rate [ Radial] Pulse Rate [ Right Dorsalis Pedis] Respiratory 30 H 27 H 30 H Rate Respiratory Rate [Anterior Throughout] Blood Pressure 109/55 117/58 122/57 O2 Sat by Pulse 94 95 96 Oximetry 03/08/19 03/08/19 03/08/19 05:15 05:30 05:45 Temperature Pulse Rate 104 H 105 H 104 H Pulse Rate [ Anterior Throughout] Pulse Rate [ Apical] Pulse Rate [ From Monitor] Pulse Rate [ Left Dorsalis Pedis] Pulse Rate [ Radial] Pulse Rate [ Right Dorsalis Pedis] Respiratory 25 H 21 26 H Rate Respiratory Rate [Anterior Throughout] Blood Pressure 115/59 118/56 119/60 O2 Sat by Pulse 96 95 94 Oximetry 03/08/19 03/08/19 03/08/19 06:00 06:15 06:30 Temperature Pulse Rate 104 H 104 H 103 H Pulse Rate [ Anterior Throughout] Pulse Rate [ Apical] Pulse Rate [ From Monitor] Pulse Rate [ Left Dorsalis Pedis] Pulse Rate [ Radial] Pulse Rate [ Right Dorsalis Pedis] Respiratory 17 16 16 Rate Respiratory Rate [Anterior Throughout] Blood Pressure 125/58 122/53 122/61 O2 Sat by Pulse 95 94 97 Oximetry 03/08/19 03/08/19 03/08/19 06:45 07:00 07:15 Temperature Pulse Rate 105 H 105 H 105 H Pulse Rate [ Anterior Throughout] Pulse Rate [ Apical] Pulse Rate [ From Monitor] Pulse Rate [ Left Dorsalis Pedis] Pulse Rate [ Radial] Pulse Rate [ Right Dorsalis Pedis] Respiratory 17 29 H 17 Rate Respiratory Rate [Anterior Throughout] Blood Pressure 130/59 120/61 130/59 O2 Sat by Pulse 95 96 94 Oximetry 03/08/19 03/08/19 03/08/19 07:30 07:44 07:45 Temperature 98.3 F Pulse Rate 104 H 103 H Pulse Rate [ Anterior Throughout] Pulse Rate [ Apical] Pulse Rate [ From Monitor] Pulse Rate [ Left Dorsalis Pedis] Pulse Rate [ Radial] Pulse Rate [ Right Dorsalis Pedis] Respiratory 25 H 16 Rate Respiratory Rate [Anterior Throughout] Blood Pressure 125/59 122/61 O2 Sat by Pulse 97 Oximetry 03/08/19 03/08/19 08:00 08:10 Temperature Pulse Rate 104 H 107 H Pulse Rate [ 104 H Anterior Throughout] Pulse Rate [ Apical] Pulse Rate [ From Monitor] Pulse Rate [ Left Dorsalis Pedis] Pulse Rate [ Radial] Pulse Rate [ Right Dorsalis Pedis] Respiratory 17 Rate Respiratory 35 H Rate [Anterior Throughout] Blood Pressure 116/58 116/63 O2 Sat by Pulse 96 94 Oximetry - General Appearance General appearance: sedated on ventilator, intubated EENT: ATNC Neck: no JVD Respiratory: Present: Decreased Breath Sounds Cardiology: regular, S1S2 Gastrointestinal: normoactive bowel sounds Integumentary: no rash, other (+ edema ) - Lab 03/08/19 06:30 03/08/19 06:30 Most recent lab results ABG pH 7.335 pH Units (7.350-7.450) L 03/03/19 05:25 ABG pCO2 61.3 mm Hg 03/03/19 05:25 ABG pO2 89.2 mm Hg (80.0-90.0) 03/03/19 05:25 ABG HCO3 32.0 mmol/L (20.0-26.0) H 03/03/19 05:25 ABG O2 Saturation 97.0 % (95.0-99.0) 03/03/19 05:25 Calcium 9.2 mg/dL (8.4-10.2) 03/08/19 06:30 Phosphorus 3.30 mg/dL (2.5-4.5) D 03/03/19 05:00 Magnesium 2.90 mg/dL (1.7-2.3) H 03/03/19 05:00 Urine Creatinine 185.9 mg/dL (0.1-20.0) H 03/04/19 12:39 Urine Sodium 13 mmol/L 03/04/19 12:39 Medications & Allergies - Medications Allergies/Adverse Reactions: Allergies aspirin Adverse Reaction (Verified 01/28/19 12:25) GI Upset Home Medications: Home Medications Medication Instructions Recorded Confirmed Last Taken Type amLODIPine 5 mg PO DAILY 01/27/19 02/27/19 02/15/19 10:00 History Albuterol Sulfate [Proventil Hfa] 6.7 gm IH Q6H PRN #1 can 02/11/19 02/27/19 02/15/19 15:00 Rx Clindamycin [Clindamycin CAP] 300 mg PO Q8H #21 cap 02/11/19 02/27/19 02/15/19 10:00 Rx oxyCODONE [roxiCODONE] 10 mg PO Q6HR PRN 02/15/19 02/27/19 Unknown History Budesonide/Formoterol Fumarate 2 puff IH BID #1 hfa.aer.ad 02/19/19 02/27/19 Unknown Rx [Symbicort 160-4.5 Mcg Inhaler] HYDROcodone/APAP 10-325 [[place] 1 each PO Q6HR PRN #30 tablet 02/19/19 02/27/19 Unknown Rx 10/325] cephALEXin [Keflex] 500 mg PO Q6HR #40 capsule 02/19/19 02/27/19 Unknown Rx Active Medications: Generic Name Dose Route Start Last Admin Trade Name Freq PRN Reason Stop Dose Admin Acetaminophen 650 mg 03/02/19 13:46 03/02/19 15:38 Tylenol PO 650 mg Q6H PRN Administration Fever >101 Albuterol 2.5 mg 02/27/19 21:08 02/28/19 12:35 Proventil IH 2.5 mg Q4HRT PRN Administration Shortness Of Breath Albuterol/Ipratropium 1 ampul 02/28/19 08:00 03/08/19 08:10 Duoneb *Not For Prn Use* IH 1 ampul TIDRT MANISH Administration Lipase/Protease/Amylase 1 each 03/03/19 08:[address] 10,500 Unit FEEDTUBE PRN PRN For Clogged Feeding Tube Enoxaparin Sodium 30 mg 03/04/19 10:00 03/07/19 10:35 Enoxaparin SUB-Q 30 mg QDAY MANISH Administration Famotidine 20 mg 03/05/19 10:00 03/08/19 09:23 Pepcid PO 20 mg DAILY MANISH Administration Hydrophilic Ointment 1 applic 03/02/19 04:40 Vaseline Lip Therapy TP Q2HR PRN Dry Lips Norepinephrine 4 mg in 250 mls @ 7.5 mls/hr 03/02/19 05:00 03/08/19 03:56 Levophed Drip 4 Mg/Ns 250 Ml IV 2 mcg/min TITR MANISH 7.5 mls/hr Administration Protocol 2 MCG/MIN Vasopressin 20 unit/ Sodium 101 mls @ 9.09 mls/hr 03/02/19 05:00 03/05/19 10:32 Chloride IV 0 units/min TITR MANISH 0 mls/hr Titration Protocol 0.03 UNITS/MIN Fentanyl Citrate 2,000 mcg in 100 mls @ 4.64 mls/hr 03/02/19 17:00 03/08/19 03:59 Fentanyl Drip Premix IV 4 mcg/kg/hr TITR MANISH 18.56 mls/hr Administration Protocol 1 MCG/KG/HR MEROPENEM/NS 1 GRAM/100 ML 1 gram in 100 mls @ 100 mls/hr 03/04/19 14:00 03/08/19 09:22 Merrem/Ns 1 Gram/100 Ml IV 100 mls/hr Q12HR MANISH Administration Protocol Propofol 1,000 mg in 100 mls @ 2.844 mls/hr 03/06/19 13:00 03/08/19 08:03 Diprivan 10 Mg/Ml IV 20 mcg/kg/min TITR MANISH 11.376 mls/hr Administration Protocol 5 MCG/KG/MIN Sodium Bicarbonate 150 meq/ 1,150 mls @ 50 mls/hr 03/08/19 11:00 Dextrose IV DIRECT MANISH Insulin Human Lispro 0 unit 03/04/19 13:00 03/08/19 05:08 Humalog SUB-Q 3 unit Q6HR MANISH Administration Protocol Lactulose 20 gm 03/02/19 10:00 03/08/19 09:22 Cephulac PO 20 gm Q12HR [facility] Administration Methylprednisolone Sodium Succinate 40 mg 03/05/19 14:00 03/08/19 05:07 Solu-Medrol IV 40 mg Q8HR MANISH Administration Multi-Ingred Cream/Lotion/Oil/Oint 1 applic 03/02/19 16:43 Artificial Tears Ophth Oint OU Q4HR PRN Dry Eye(s) Simple Syrup 15 ml 03/03/19 08:54 Simple Syrup FEEDTUBE PRN PRN Hypoglycemia Simple Syrup 30 ml 03/03/19 08:54 Simple Syrup FEEDTUBE PRN PRN Hypoglycemia Sodium Bicarbonate 325 mg 03/03/19 08:54 Sodium Bicarbonate FEEDTUBE PRN PRN For Clogged Feeding Tube
[2019-03-08] MEDS ORDERED: FUROSEMIDE 80 MG in SODIUM CHLORIDE 0.9% 50 ML IV ONE (10:08)
[2019-03-08] MEDS: SODIUM BICARBONATE 150 MEQ in DEXTROSE 5% IN WATER 1,000 ML IV SCH (10:37)
[2019-03-08] MEDS: ENOXAPARIN 30 MG/0.3 ML INJ SUB-Q SCH (10:50)
--- NOTE | 2019-03-08 11:47 | Progress Note ---
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 Transaminitis Metastatic breast cancer Hypernatremia Poor medical compliance Obesity Continue steroids for now, with taper- it possible there is an element of re- expansion pulmonary edema post thoracentesis Hepatic function is improving, avoid hepatotoxic agents Hypernatremia is improving, continue free water flushes and hypotonic solutions( D5-1/2Nsaline) Avoid nephrotoxins and adjust all medications fro GFR and CrCL Discussed with renal, he states at this time with poor prognosis will hold off on NURSE SUBSTANCE ABUSE as a therapeutic option On Cefepime per ID recommendation, de-escalate as indicated CBC, BMP in am - Wean vasopressor support for MAP>65, currently on norepinephrine and vasopressin -Volume resuscitation per sepsis protocol -VAP bundle addressed -Aspiration precautions, HOB>40 degrees - Lung protective strategies -Adjust minute ventilation for better acid-base balance -CXR, ABG in am -Assess daily for readiness for weaning SAT, SBT as tolerated -Continue small bowel feeding tube for nutritional support -VTE prophylaxis -Stress ulcer prophylaxis - Accuchecks with glycemic control for SSI (While critically ill target blood glucose of 140-180 mg/dL; avoid hypoglycemia) - mobility protocol for pressure ulcer prevention - Monitor hemodynamics closely -Monitor electrolyte profile closely and replete as indicated -Chronic home medications, resume as clinically indicated -Mercado catheter in this critically ill patient, with poor urine output, requiring accurate intake and output monitoring and acute renal failure with worsening indices -Wound care CONDITION: CRITICAL PROGNOSIS: GUARDED-POOR CODE STATUS: FULL CODE The high probability of a clinically significant, sudden or life-threatening deterioration of the [respiratory, cardiovascular, renal, hepatobiliary] system(s) required my full and direct attention, intervention and personal man agement. The aggregate critical care time was [35] minutes without overlap. Time includes spent on; [x] Data Review and interpretation [x] Patient assessment and monitoring of vital signs [x] Documentation [x] Medication orders and management Subjective Date of service: 03/08/19 Principal diagnosis: Ac. hypoxemic resp failure; Sev Sepsis; R. pleural effusion; Met. breast CA Interval history: Patient is seen today for: Acute hypoxemic-hypercapnic respiratory failure; nikita re Sepsis with septic shock,HAP; ARDS; Right pleural effusion s/p thoracentesis; Metastatic breast cancer; Hypernatremia; Poor medical compliance; Obesity Seen and examined at bedside; 24hour events reviewed; nursing and respiratory care staff consulted; overnight events discussed; Remains critically ill on mechanical ventilatory support; on vasopressor support; on fentanyl at 3mcg, on SAT was restless but not purposeful; LIJ to CVP, worsening renal function Remains on norepinephrine at 6mcg and fixed dose vasopressin. Low grade fevers this morning. Cultures as negative so far On MVS AC-PC 25/10/80% ABG 7.33/57/101/30- high airway pressures. Sedated Objective Vital Signs - 12hr 03/07/19 03/08/19 03/08/19 23:54 00:00 00:08 Temperature Pulse Rate 104 H 103 H 103 H Pulse Rate [ Anterior Throughout] Pulse Rate [ 103 H Apical] Pulse Rate [ 103 H From Monitor] Pulse Rate [ 103 H Left Dorsalis Pedis] Pulse Rate [ 103 H Radial] Pulse Rate [ 103 H Right Dorsalis Pedis] Respiratory 24 30 H Rate Respiratory Rate [Anterior Throughout] Respiratory Rate [Left Chest] Blood Pressure 119/61 117/60 117/60 O2 Sat by Pulse 92 93 92 Oximetry 03/08/19 03/08/19 03/08/19 00:15 00:30 00:45 Temperature Pulse Rate 101 H 103 H 104 H Pulse Rate [ Anterior Throughout] Pulse Rate [ Apical] Pulse Rate [ From Monitor] Pulse Rate [ Left Dorsalis Pedis] Pulse Rate [ Radial] Pulse Rate [ Right Dorsalis Pedis] Respiratory 22 29 H 25 H Rate Respiratory Rate [Anterior Throughout] Respiratory Rate [Left Chest] Blood Pressure 124/64 116/63 115/62 O2 Sat by Pulse 91 93 91 Oximetry 03/08/19 03/08/19 03/08/19 00:52 01:00 01:15 Temperature Pulse Rate 104 H 105 H Pulse Rate [ Anterior Throughout] Pulse Rate [ Apical] Pulse Rate [ From Monitor] Pulse Rate [ Left Dorsalis Pedis] Pulse Rate [ Radial] Pulse Rate [ Right Dorsalis Pedis] Respiratory 16 31 H 32 H Rate Respiratory Rate [Anterior Throughout] Respiratory Rate [Left Chest] Blood Pressure 122/59 122/58 O2 Sat by Pulse 92 92 Oximetry 03/08/19 03/08/19 03/08/19 01:30 01:45 02:00 Temperature Pulse Rate 105 H 104 H 104 H Pulse Rate [ Anterior Throughout] Pulse Rate [ 102 H Apical] Pulse Rate [ 102 H From Monitor] Pulse Rate [ 102 H Left Dorsalis Pedis] Pulse Rate [ 102 H Radial] Pulse Rate [ 102 H Right Dorsalis Pedis] Respiratory 16 29 H 29 H Rate Respiratory Rate [Anterior Throughout] Respiratory Rate [Left Chest] Blood Pressure 122/58 107/59 109/59 O2 Sat by Pulse 93 92 97 Oximetry 03/08/19 03/08/19 03/08/19 02:15 02:30 02:45 Temperature Pulse Rate 101 H 105 H 108 H Pulse Rate [ Anterior Throughout] Pulse Rate [ Apical] Pulse Rate [ From Monitor] Pulse Rate [ Left Dorsalis Pedis] Pulse Rate [ Radial] Pulse Rate [ Right Dorsalis Pedis] Respiratory 31 H 25 H 30 H Rate Respiratory Rate [Anterior Throughout] Respiratory Rate [Left Chest] Blood Pressure 93/48 112/58 108/59 O2 Sat by Pulse 81 L 93 95 Oximetry 03/08/19 03/08/19 03/08/19 03:00 03:15 03:30 Temperature Pulse Rate 103 H 104 H 104 H Pulse Rate [ Anterior Throughout] Pulse Rate [ Apical] Pulse Rate [ From Monitor] Pulse Rate [ Left Dorsalis Pedis] Pulse Rate [ Radial] Pulse Rate [ Right Dorsalis Pedis] Respiratory 30 H 27 H 29 H Rate Respiratory Rate [Anterior Throughout] Respiratory Rate [Left Chest] Blood Pressure 114/56 118/56 124/57 O2 Sat by Pulse 96 96 97 Oximetry 03/08/19 03/08/19 03/08/19 03:43 03:45 04:00 Temperature 98.2 F Pulse Rate 104 H 104 H Pulse Rate [ Anterior Throughout] Pulse Rate [ 105 H Apical] Pulse Rate [ 105 H From Monitor] Pulse Rate [ 105 H Left Dorsalis Pedis] Pulse Rate [ 105 H Radial] Pulse Rate [ 105 H Right Dorsalis Pedis] Respiratory 30 H 31 H Rate Respiratory Rate [Anterior Throughout] Respiratory Rate [Left Chest] Blood Pressure 108/55 117/58 O2 Sat by Pulse 97 97 Oximetry 03/08/19 03/08/19 03/08/19 04:15 04:30 04:45 Temperature Pulse Rate 104 H 104 H 103 H Pulse Rate [ Anterior Throughout] Pulse Rate [ Apical] Pulse Rate [ From Monitor] Pulse Rate [ Left Dorsalis Pedis] Pulse Rate [ Radial] Pulse Rate [ Right Dorsalis Pedis] Respiratory 30 H 30 H 27 H Rate Respiratory Rate [Anterior Throughout] Respiratory Rate [Left Chest] Blood Pressure 119/64 109/55 117/58 O2 Sat by Pulse 97 94 95 Oximetry 03/08/19 03/08/19 03/08/19 05:00 05:15 05:30 Temperature Pulse Rate 104 H 104 H 105 H Pulse Rate [ Anterior Throughout] Pulse Rate [ Apical] Pulse Rate [ From Monitor] Pulse Rate [ Left Dorsalis Pedis] Pulse Rate [ Radial] Pulse Rate [ Right Dorsalis Pedis] Respiratory 30 H 25 H 21 Rate Respiratory Rate [Anterior Throughout] Respiratory Rate [Left Chest] Blood Pressure 122/57 115/59 118/56 O2 Sat by Pulse 96 96 95 Oximetry 03/08/19 03/08/19 03/08/19 05:45 06:00 06:15 Temperature Pulse Rate 104 H 104 H 104 H Pulse Rate [ Anterior Throughout] Pulse Rate [ Apical] Pulse Rate [ From Monitor] Pulse Rate [ Left Dorsalis Pedis] Pulse Rate [ Radial] Pulse Rate [ Right Dorsalis Pedis] Respiratory 26 H 17 16 Rate Respiratory Rate [Anterior Throughout] Respiratory Rate [Left Chest] Blood Pressure 119/60 125/58 122/53 O2 Sat by Pulse 94 95 94 Oximetry 03/08/19 03/08/19 03/08/19 06:30 06:45 07:00 Temperature Pulse Rate 103 H 105 H 105 H Pulse Rate [ Anterior Throughout] Pulse Rate [ Apical] Pulse Rate [ From Monitor] Pulse Rate [ Left Dorsalis Pedis] Pulse Rate [ Radial] Pulse Rate [ Right Dorsalis Pedis] Respiratory 16 17 29 H Rate Respiratory Rate [Anterior Throughout] Respiratory Rate [Left Chest] Blood Pressure 122/61 130/59 120/61 O2 Sat by Pulse 97 95 96 Oximetry 03/08/19 03/08/19 03/08/19 07:15 07:30 07:44 Temperature 98.3 F Pulse Rate 105 H 104 H Pulse Rate [ Anterior Throughout] Pulse Rate [ Apical] Pulse Rate [ From Monitor] Pulse Rate [ Left Dorsalis Pedis] Pulse Rate [ Radial] Pulse Rate [ Right Dorsalis Pedis] Respiratory 17 25 H Rate Respiratory Rate [Anterior Throughout] Respiratory Rate [Left Chest] Blood Pressure 130/59 125/59 O2 Sat by Pulse 94 97 Oximetry 03/08/19 03/08/19 03/08/19 07:45 08:00 08:10 Temperature Pulse Rate 103 H 104 H 107 H Pulse Rate [ 104 H Anterior Throughout] Pulse Rate [ 105 H Apical] Pulse Rate [ 105 H From Monitor] Pulse Rate [ 105 H Left Dorsalis Pedis] Pulse Rate [ 105 H Radial] Pulse Rate [ 105 H Right Dorsalis Pedis] Respiratory 16 35 H Rate Respiratory 35 H Rate [Anterior Throughout] Respiratory Rate [Left Chest] Blood Pressure 122/61 116/58 116/63 O2 Sat by Pulse 95 94 Oximetry 03/08/19 03/08/19 03/08/19 08:15 08:30 08:45 Temperature Pulse Rate 104 H 107 H 105 H Pulse Rate [ Anterior Throughout] Pulse Rate [ Apical] Pulse Rate [ From Monitor] Pulse Rate [ Left Dorsalis Pedis] Pulse Rate [ Radial] Pulse Rate [ Right Dorsalis Pedis] Respiratory 18 25 H 14 Rate Respiratory Rate [Anterior Throughout] Respiratory Rate [Left Chest] Blood Pressure 119/63 116/63 122/63 O2 Sat by Pulse 96 92 Oximetry 03/08/19 03/08/19 03/08/19 09:00 09:15 09:30 Temperature Pulse Rate 104 H 105 H 103 H Pulse Rate [ Anterior Throughout] Pulse Rate [ Apical] Pulse Rate [ From Monitor] Pulse Rate [ Left Dorsalis Pedis] Pulse Rate [ Radial] Pulse Rate [ Right Dorsalis Pedis] Respiratory 24 11 L 20 Rate Respiratory Rate [Anterior Throughout] Respiratory Rate [Left Chest] Blood Pressure 120/60 115/55 117/57 O2 Sat by Pulse 100 99 94 Oximetry 03/08/19 03/08/19 03/08/19 09:45 10:00 10:01 Temperature Pulse Rate 102 H 102 H Pulse Rate [ Anterior Throughout] Pulse Rate [ Apical] Pulse Rate [ From Monitor] Pulse Rate [ Left Dorsalis Pedis] Pulse Rate [ Radial] Pulse Rate [ Right Dorsalis Pedis] Respiratory 17 14 Rate Respiratory Rate [Anterior Throughout] Respiratory 35 H Rate [Left Chest] Blood Pressure 98/49 91/58 O2 Sat by Pulse 90 89 Oximetry 03/08/19 03/08/19 03/08/19 10:15 10:30 10:45 Temperature Pulse Rate 108 H 117 H 108 H Pulse Rate [ Anterior Throughout] Pulse Rate [ Apical] Pulse Rate [ From Monitor] Pulse Rate [ Left Dorsalis Pedis] Pulse Rate [ Radial] Pulse Rate [ Right Dorsalis Pedis] Respiratory 17 14 16 Rate Respiratory Rate [Anterior Throughout] Respiratory Rate [Left Chest] Blood Pressure 105/57 105/57 113/57 O2 Sat by Pulse 87 91 89 Oximetry 03/08/19 03/08/19 11:00 11:15 Temperature Pulse Rate 111 H 112 H Pulse Rate [ Anterior Throughout] Pulse Rate [ Apical] Pulse Rate [ From Monitor] Pulse Rate [ Left Dorsalis Pedis] Pulse Rate [ Radial] Pulse Rate [ Right Dorsalis Pedis] Respiratory 17 17 Rate Respiratory Rate [Anterior Throughout] Respiratory Rate [Left Chest] Blood Pressure 108/60 125/65 O2 Sat by Pulse 93 92 Oximetry Constitutional: lethargic, other (middle aged obese AAF with mildly increased respiratory distress on MVS) Eyes: icteric ENT: other (Small bowel feeding tube in place, 7.[address] 23cm at the lip) Neck: supple, no lymphadenopathy, no JVD, other (Left IJ CVC; large neck circumference) Effort: mildly labored Ascultation: Bilateral: diminished breath sounds, rales Percussion: Bilateral: not dull Cardiovascular: regular rate and rhythm, other (Tachycardia S1,S2, no murmurs. Anterior chest wall dressing) Gastrointestinal: normoactive bowel sounds, soft, non-tender, non-distended Integumentary: other (Chest wall wound) Extremities: no cyanosis, pulses normal, no ischemia or petechiae, edema, other (edema) Neurologic: pupils equal and round, other (sedated, unable to assess) Psychiatric: other (unable to assess re: AMS) CBC and BMP: 03/12/19 05:30 03/14/19 Unknown ABG, PT/INR, D-dimer: ABG POC ABG pH 7.182 (7.35-7.45) L 03/08/19 09:29 ABG pH 7.335 pH Units (7.350-7.450) L 03/03/19 05:25 ABG pCO2 61.3 mm Hg 03/03/19 05:25 POC ABG pO2 77 (80-105) L 03/08/19 09:29 ABG pO2 89.2 mm Hg (80.0-90.0) 03/03/19 05:25 POC ABG HCO3 28.1 (22-26 mml/L) 03/08/19 09:29 POC ABG Total CO2 30 (23-27mmol/L) 03/08/19 09:29 POC ABG O2 Sat 90 03/08/19 09:29 ABG O2 Saturation 97.0 % (95.0-99.0) 03/03/19 05:25 PT/INR, D-dimer PT 14.8 Sec. (12.2-14.9) 02/27/19 12:38 INR 1.17 (0.87-1.13) H 02/27/19 12:38 D-Dimer 5778.32 ng/mlDDU (0-234) H 02/27/19 12:38 Abnormal lab findings: Abnormal Labs 02/27/19 02/27/19 02/27/19 11:33 11:33 11:33 WBC 18.6 H RBC 3.60 L Hgb 8.7 L Hct 28.8 L MCH 24 L MCHC RDW 23.0 H Plt Count 507 H Lymph % (Auto) 12.9 L Gem # 1.3 H Seg Neutrophils % 79.7 H Seg Neuts % (Manual) Lymphocytes % (Manual) Nucleated RBC % Seg Neutrophils # 14.8 H Seg Neutrophils # Man Lymphocytes # (Manual) Monocytes # (Manual) INR D-Dimer POC ABG pH ABG pH POC ABG pCO2 POC ABG pO2 ABG pO2 ABG HCO3 ABG O2 Saturation ABG Base Excess ABG Hemoglobin Oxyhemoglobin Sodium Potassium Chloride 96.8 L Carbon Dioxide BUN 28 H Creatinine 0.5 L Glucose 169 H POC Glucose Lactic Acid 3.40 H* Phosphorus Magnesium AST ALT Alkaline Phosphatase Ammonia Total Creatine Kinase 197 H CK-MB (CK-2) 4.1 H NT-Pro-B Natriuret Pep Total Protein Albumin Free T4 Urine Creatinine Urine Chloride Crossmatch 02/27/19 02/27/19 02/27/19 11:33 11:45 11:47 WBC RBC Hgb Hct MCH MCHC RDW Plt Count Lymph % (Auto) Gem # Seg Neutrophils % Seg Neuts % (Manual) Lymphocytes % (Manual) Nucleated RBC % Seg Neutrophils # Seg Neutrophils # Man Lymphocytes # (Manual) Monocytes # (Manual) INR D-Dimer POC ABG pH ABG pH POC ABG pCO2 POC ABG pO2 ABG pO2 ABG HCO3 ABG O2 Saturation ABG Base Excess ABG Hemoglobin Oxyhemoglobin Sodium Potassium Chloride Carbon Dioxide BUN Creatinine Glucose POC Glucose 169 H Lactic Acid Phosphorus Magnesium AST 95 H ALT Alkaline Phosphatase 130 H Ammonia Total Creatine Kinase CK-MB (CK-2) NT-Pro-B Natriuret Pep Total Protein Albumin 2.9 L Free T4 Urine Creatinine Urine Chloride Crossmatch See Detail 02/27/19 02/27/19 02/27/19 12:30 12:38 14:08 WBC RBC Hgb Hct MCH MCHC RDW Plt Count Lymph % (Auto) Gem # Seg Neutrophils % Seg Neuts % (Manual) Lymphocytes % (Manual) Nucleated RBC % Seg Neutrophils # Seg Neutrophils # Man Lymphocytes # (Manual) Monocytes # (Manual) INR 1.17 H D-Dimer 5778.32 H POC ABG pH 7.326 L ABG pH POC ABG pCO2 POC ABG pO2 129 H ABG pO2 ABG HCO3 ABG O2 Saturation ABG Base Excess ABG Hemoglobin Oxyhemoglobin Sodium Potassium Chloride Carbon Dioxide BUN Creatinine Glucose POC Glucose Lactic Acid 3.00 H* Phosphorus Magnesium AST ALT Alkaline Phosphatase Ammonia Total Creatine Kinase CK-MB (CK-2) NT-Pro-B Natriuret Pep Total Protein Albumin Free T4 Urine Creatinine Urine Chloride Crossmatch 02/27/19 02/27/19 02/27/19 15:03 16:06 18:08 WBC RBC Hgb Hct MCH MCHC RDW Plt Count Lymph % (Auto) Gem # Seg Neutrophils % Seg Neuts % (Manual) Lymphocytes % (Manual) Nucleated RBC % Seg Neutrophils # Seg Neutrophils # Man Lymphocytes # (Manual) Monocytes # (Manual) INR D-Dimer POC ABG pH ABG pH POC ABG pCO2 68.8 H POC ABG pO2 225 H ABG pO2 ABG HCO3 ABG O2 Saturation ABG Base Excess ABG Hemoglobin Oxyhemoglobin Sodium Potassium Chloride Carbon Dioxide BUN Creatinine Glucose POC Glucose Lactic Acid 3.20 H* 2.80 H* Phosphorus Magnesium AST ALT Alkaline Phosphatase Ammonia Total Creatine Kinase CK-MB (CK-2) NT-Pro-B Natriuret Pep Total Protein Albumin Free T4 Urine Creatinine Urine Chloride Crossmatch 02/27/19 02/28/19 02/28/19 18:12 10:00 10:00 WBC 13.3 H RBC 3.39 L Hgb 8.1 L Hct 26.7 L MCH 24 L MCHC RDW 22.5 H Plt Count Lymph % (Auto) Gem # Seg Neutrophils % Seg Neuts % (Manual) Lymphocytes % (Manual) Nucleated RBC % Seg Neutrophils # Seg Neutrophils # Man Lymphocytes # (Manual) Monocytes # (Manual) INR D-Dimer POC ABG pH ABG pH POC ABG pCO2 POC ABG pO2 ABG pO2 ABG HCO3 ABG O2 Saturation ABG Base Excess ABG Hemoglobin Oxyhemoglobin Sodium 146 H Potassium Chloride Carbon Dioxide 32 H BUN 32 H Creatinine 0.5 L Glucose 111 H POC Glucose Lactic Acid 2.30 H* Phosphorus Magnesium AST 93 H ALT Alkaline Phosphatase Ammonia Total Creatine Kinase CK-MB (CK-2) NT-Pro-B Natriuret Pep Total Protein Albumin 2.6 L Free T4 Urine Creatinine Urine Chloride Crossmatch 02/28/19 03/01/19 03/01/19 10:26 00:05 05:00 WBC 20.2 H RBC Hgb 9.0 L Hct 29.9 L MCH 24 L MCHC RDW 22.8 H Plt Count 498 H Lymph % (Auto) Gem # Seg Neutrophils % Seg Neuts % (Manual) Lymphocytes % (Manual) Nucleated RBC % Seg Neutrophils # Seg Neutrophils # Man Lymphocytes # (Manual) Monocytes # (Manual) INR D-Dimer POC ABG pH ABG pH POC ABG pCO2 54.2 H POC ABG pO2 ABG pO2 ABG HCO3 ABG O2 Saturation ABG Base Excess ABG Hemoglobin Oxyhemoglobin Sodium Potassium Chloride Carbon Dioxide BUN Creatinine Glucose POC Glucose 167 H Lactic Acid Phosphorus Magnesium AST ALT Alkaline Phosphatase Ammonia Total Creatine Kinase CK-MB (CK-2) NT-Pro-B Natriuret Pep Total Protein Albumin Free T4 Urine Creatinine Urine Chloride Crossmatch 03/01/19 03/01/19 03/01/19 05:00 12:36 17:31 WBC RBC Hgb Hct MCH MCHC RDW Plt Count Lymph % (Auto) Gem # Seg Neutrophils % Seg Neuts % (Manual) Lymphocytes % (Manual) Nucleated RBC % Seg Neutrophils # Seg Neutrophils # Man Lymphocytes # (Manual) Monocytes # (Manual) INR D-Dimer POC ABG pH ABG pH POC ABG pCO2 POC ABG pO2 ABG pO2 ABG HCO3 ABG O2 Saturation ABG Base Excess ABG Hemoglobin Oxyhemoglobin Sodium 148 H Potassium Chloride Carbon Dioxide 37 H BUN 43 H Creatinine 0.6 L Glucose 150 H POC Glucose 140 H 157 H Lactic Acid Phosphorus Magnesium AST ALT Alkaline Phosphatase Ammonia Total Creatine Kinase CK-MB (CK-2) NT-Pro-B Natriuret Pep Total Protein Albumin Free T4 Urine Creatinine Urine Chloride Crossmatch 03/02/19 03/02/19 03/02/19 04:29 04:32 05:27 WBC RBC Hgb Hct MCH MCHC RDW Plt Count Lymph % (Auto) Gem # Seg Neutrophils % Seg Neuts % (Manual) Lymphocytes % (Manual) Nucleated RBC % Seg Neutrophils # Seg Neutrophils # Man Lymphocytes # (Manual) Monocytes # (Manual) INR D-Dimer POC ABG pH 7.056 L ABG pH POC ABG pCO2 POC ABG pO2 64 L ABG pO2 ABG HCO3 ABG O2 Saturation ABG Base Excess ABG Hemoglobin Oxyhemoglobin Sodium Potassium Chloride Carbon Dioxide BUN Creatinine Glucose POC Glucose 161 H Lactic Acid Phosphorus Magnesium AST ALT Alkaline Phosphatase Ammonia Total Creatine Kinase CK-MB (CK-2) NT-Pro-B Natriuret Pep 2143 H Total Protein Albumin Free T4 Urine Creatinine Urine Chloride Crossmatch 03/02/19 03/02/19 03/02/19 05:27 05:27 05:27 WBC 17.8 H RBC 3.50 L Hgb 8.5 L Hct 29.5 L MCH 24 L MCHC 29 L RDW 21.9 H Plt Count Lymph % (Auto) Gem # Seg Neutrophils % Seg Neuts % (Manual) 94.0 H Lymphocytes % (Manual) 2.0 L Nucleated RBC % 1.0 H Seg Neutrophils # Seg Neutrophils # Man 16.7 H Lymphocytes # (Manual) 0.4 L Monocytes # (Manual) INR D-Dimer POC ABG pH ABG pH POC ABG pCO2 POC ABG pO2 ABG pO2 ABG HCO3 ABG O2 Saturation ABG Base Excess ABG Hemoglobin Oxyhemoglobin Sodium 156 H D Potassium 5.4 H Chloride 108.6 H Carbon Dioxide 39 H BUN 60 H Creatinine Glucose 159 H POC Glucose Lactic Acid Phosphorus Magnesium AST 164 H ALT Alkaline Phosphatase 164 H Ammonia 81.0 H Total Creatine Kinase CK-MB (CK-2) NT-Pro-B Natriuret Pep Total Protein 6.2 L Albumin 2.2 L Free T4 Urine Creatinine Urine Chloride Crossmatch 03/02/19 03/02/19 03/02/19 05:27 06:04 10:56 WBC RBC Hgb Hct MCH MCHC RDW Plt Count Lymph % (Auto) Gem # Seg Neutrophils % Seg Neuts % (Manual) Lymphocytes % (Manual) Nucleated RBC % Seg Neutrophils # Seg Neutrophils # Man Lymphocytes # (Manual) Monocytes # (Manual) INR D-Dimer POC ABG pH ABG pH 7.239 L POC ABG pCO2 POC ABG pO2 ABG pO2 60.0 L 103.9 H ABG HCO3 36.6 H 32.9 H ABG O2 Saturation 88.3 L ABG Base Excess 7.3 H 7.7 H ABG Hemoglobin 9.1 L 9.0 L Oxyhemoglobin 86.3 L Sodium Potassium Chloride Carbon Dioxide BUN Creatinine Glucose POC Glucose Lactic Acid Phosphorus 6.90 H Magnesium 2.80 H AST ALT Alkaline Phosphatase Ammonia Total Creatine Kinase CK-MB (CK-2) NT-Pro-B Natriuret Pep Total Protein Albumin Free T4 Urine Creatinine Urine Chloride Crossmatch 03/02/19 03/02/19 03/02/19 13:58 23:40 Unknown WBC RBC Hgb Hct MCH MCHC RDW Plt Count Lymph % (Auto) Gem # Seg Neutrophils % Seg Neuts % (Manual) Lymphocytes % (Manual) Nucleated RBC % Seg Neutrophils # Seg Neutrophils # Man Lymphocytes # (Manual) Monocytes # (Manual) INR D-Dimer POC ABG pH ABG pH POC ABG pCO2 POC ABG pO2 ABG pO2 ABG HCO3 ABG O2 Saturation ABG Base Excess ABG Hemoglobin Oxyhemoglobin Sodium Potassium Chloride Carbon Dioxide BUN Creatinine Glucose POC Glucose 127 H 161 H Lactic Acid Phosphorus Magnesium AST ALT Alkaline Phosphatase Ammonia Total Creatine Kinase CK-MB (CK-2) NT-Pro-B Natriuret Pep Total Protein Albumin Free T4 Urine Creatinine 218.2 H Urine Chloride Crossmatch 03/03/19 03/03/19 03/03/19 05:00 05:00 05:25 WBC 17.8 H RBC 3.62 L Hgb 8.8 L Hct 28.9 L MCH 24 L MCHC RDW 22.8 H Plt Count Lymph % (Auto) Gem # Seg Neutrophils % Seg Neuts % (Manual) 96.0 H Lymphocytes % (Manual) 1.0 L Nucleated RBC % 3.0 H Seg Neutrophils # Seg Neutrophils # Man 17.1 H Lymphocytes # (Manual) 0.2 L Monocytes # (Manual) INR D-Dimer POC ABG pH ABG pH 7.335 L POC ABG pCO2 POC ABG pO2 ABG pO2 ABG HCO3 32.0 H ABG O2 Saturation ABG Base Excess 5.2 H ABG Hemoglobin 8.2 L Oxyhemoglobin 94.9 L Sodium 160 H Potassium 3.5 L D Chloride 113.7 H Carbon Dioxide BUN 90 H Creatinine 1.7 H D Glucose 149 H POC Glucose Lactic Acid Phosphorus Magnesium 2.90 H AST 624 H ALT 211 H Alkaline Phosphatase 416 H Ammonia Total Creatine Kinase CK-MB (CK-2) NT-Pro-B Natriuret Pep Total Protein 6.2 L Albumin 2.2 L Free T4 Urine Creatinine Urine Chloride Crossmatch 03/03/19 03/03/19 03/03/19 05:41 12:27 15:54 WBC RBC Hgb Hct MCH MCHC RDW Plt Count Lymph % (Auto) Gem # Seg Neutrophils % Seg Neuts % (Manual) Lymphocytes % (Manual) Nucleated RBC % Seg Neutrophils # Seg Neutrophils # Man Lymphocytes # (Manual) Monocytes # (Manual) INR D-Dimer POC ABG pH ABG pH POC ABG pCO2 POC ABG pO2 ABG pO2 ABG HCO3 ABG O2 Saturation ABG Base Excess ABG Hemoglobin Oxyhemoglobin Sodium Potassium Chloride Carbon Dioxide BUN Creatinine Glucose POC Glucose 150 H 167 H Lactic Acid Phosphorus Magnesium AST ALT Alkaline Phosphatase Ammonia Total Creatine Kinase CK-MB (CK-2) NT-Pro-B Natriuret Pep Total Protein Albumin Free T4 0.50 L Urine Creatinine Urine Chloride Crossmatch 03/03/19 03/03/19 03/04/19 17:32 23:57 04:11 WBC RBC Hgb Hct MCH MCHC RDW Plt Count Lymph % (Auto) Gem # Seg Neutrophils % Seg Neuts % (Manual) Lymphocytes % (Manual) Nucleated RBC % Seg Neutrophils # Seg Neutrophils # Man Lymphocytes # (Manual) Monocytes # (Manual) INR D-Dimer POC ABG pH 7.332 L ABG pH POC ABG pCO2 57.1 H POC ABG pO2 ABG pO2 ABG HCO3 ABG O2 Saturation ABG Base Excess ABG Hemoglobin Oxyhemoglobin Sodium Potassium Chloride Carbon Dioxide BUN Creatinine Glucose POC Glucose 165 H 202 H Lactic Acid Phosphorus Magnesium AST ALT Alkaline Phosphatase Ammonia Total Creatine Kinase CK-MB (CK-2) NT-Pro-B Natriuret Pep Total Protein Albumin Free T4 Urine Creatinine Urine Chloride Crossmatch 1103/04/19 03/04/19 04:38 04:38 05:30 WBC 23.0 H RBC 3.36 L Hgb 7.9 L Hct 26.6 L MCH 24 L MCHC RDW 23.1 H Plt Count Lymph % (Auto) Gem # Seg Neutrophils % Seg Neuts % (Manual) 98.0 H Lymphocytes % (Manual) 0 L Nucleated RBC % Seg Neutrophils # Seg Neutrophils # Man 22.5 H Lymphocytes # (Manual) 0.0 L Monocytes # (Manual) INR D-Dimer POC ABG pH ABG pH POC ABG pCO2 POC ABG pO2 ABG pO2 ABG HCO3 ABG O2 Saturation ABG Base Excess ABG Hemoglobin Oxyhemoglobin Sodium 151 H D Potassium Chloride 110.4 H Carbon Dioxide BUN 103 H Creatinine 2.0 H Glucose 177 H POC Glucose 172 H Lactic Acid Phosphorus Magnesium AST 244 H ALT 159 H Alkaline Phosphatase 365 H Ammonia Total Creatine Kinase CK-MB (CK-2) NT-Pro-B Natriuret Pep Total Protein 5.9 L Albumin 2.1 L Free T4 Urine Creatinine Urine Chloride Crossmatch 03/04/19 03/04/19 03/04/19 12:10 12:39 18:11 WBC RBC Hgb Hct MCH MCHC RDW Plt Count Lymph % (Auto) Gem # Seg Neutrophils % Seg Neuts % (Manual) Lymphocytes % (Manual) Nucleated RBC % Seg Neutrophils # Seg Neutrophils # Man Lymphocytes # (Manual) Monocytes # (Manual) INR D-Dimer POC ABG pH ABG pH POC ABG pCO2 POC ABG pO2 ABG pO2 ABG HCO3 ABG O2 Saturation ABG Base Excess ABG Hemoglobin Oxyhemoglobin Sodium Potassium Chloride Carbon Dioxide BUN Creatinine Glucose POC Glucose 226 H 173 H Lactic Acid Phosphorus Magnesium AST ALT Alkaline Phosphatase Ammonia Total Creatine Kinase CK-MB (CK-2) NT-Pro-B Natriuret Pep Total Protein Albumin Free T4 Urine Creatinine 185.9 H Urine Chloride 10.2 L Crossmatch 03/04/19 03/05/19 03/05/19 23:24 04:16 04:28 WBC 23.8 H RBC 3.08 L Hgb 7.5 L Hct 25.0 L MCH 24 L MCHC RDW 23.0 H Plt Count Lymph % (Auto) Gem # Seg Neutrophils % Seg Neuts % (Manual) 96.0 H Lymphocytes % (Manual) 3.0 L Nucleated RBC % 1.0 H Seg Neutrophils # Seg Neutrophils # Man 22.8 H Lymphocytes # (Manual) 0.7 L Monocytes # (Manual) INR D-Dimer POC ABG pH 7.274 L ABG pH POC ABG pCO2 59.7 H POC ABG pO2 107 H ABG pO2 ABG HCO3 ABG O2 Saturation ABG Base Excess ABG Hemoglobin Oxyhemoglobin Sodium Potassium Chloride Carbon Dioxide BUN Creatinine Glucose POC Glucose 184 H Lactic Acid Phosphorus Magnesium AST ALT Alkaline Phosphatase Ammonia Total Creatine Kinase CK-MB (CK-2) NT-Pro-B Natriuret Pep Total Protein Albumin Free T4 Urine Creatinine Urine Chloride Crossmatch 03/05/19 03/05/19 03/05/19 04:28 04:28 05:29 WBC RBC Hgb Hct MCH MCHC RDW Plt Count Lymph % (Auto) Gem # Seg Neutrophils % Seg Neuts % (Manual) Lymphocytes % (Manual) Nucleated RBC % Seg Neutrophils # Seg Neutrophils # Man Lymphocytes # (Manual) Monocytes # (Manual) INR D-Dimer POC ABG pH ABG pH POC ABG pCO2 POC ABG pO2 ABG pO2 ABG HCO3 ABG O2 Saturation ABG Base Excess ABG Hemoglobin Oxyhemoglobin Sodium 147 H Potassium Chloride 107.9 H Carbon Dioxide BUN 112 H Creatinine 2.3 H Glucose 153 H POC Glucose 147 H Lactic Acid Phosphorus Magnesium AST 188 H ALT 138 H Alkaline Phosphatase 384 H Ammonia 71.0 H Total Creatine Kinase CK-MB (CK-2) NT-Pro-B Natriuret Pep Total Protein 6.0 L Albumin 2.2 L Free T4 Urine Creatinine Urine Chloride Crossmatch 03/05/19 03/05/19 03/05/19 12:00 17:44 23:48 WBC RBC Hgb Hct MCH MCHC RDW Plt Count Lymph % (Auto) Gem # Seg Neutrophils % Seg Neuts % (Manual) Lymphocytes % (Manual) Nucleated RBC % Seg Neutrophils # Seg Neutrophils # Man Lymphocytes # (Manual) Monocytes # (Manual) INR D-Dimer POC ABG pH ABG pH POC ABG pCO2 POC ABG pO2 ABG pO2 ABG HCO3 ABG O2 Saturation ABG Base Excess ABG Hemoglobin Oxyhemoglobin Sodium Potassium Chloride Carbon Dioxide BUN Creatinine Glucose POC Glucose 181 H 111 H 120 H Lactic Acid Phosphorus Magnesium AST ALT Alkaline Phosphatase Ammonia Total Creatine Kinase CK-MB (CK-2) NT-Pro-B Natriuret Pep Total Protein Albumin Free T4 Urine Creatinine Urine Chloride Crossmatch 03/06/19 03/06/19 03/06/19 04:55 04:55 05:19 WBC 26.5 H RBC 3.28 L Hgb 7.7 L Hct 26.4 L MCH 24 L MCHC 29 L RDW 23.0 H Plt Count Lymph % (Auto) Gem # Seg Neutrophils % Seg Neuts % (Manual) 98.0 H Lymphocytes % (Manual) 2.0 L Nucleated RBC % 2.0 H Seg Neutrophils # Seg Neutrophils # Man 26.0 H Lymphocytes # (Manual) 0.5 L Monocytes # (Manual) INR D-Dimer POC ABG pH 7.248 L ABG pH POC ABG pCO2 65.9 H POC ABG pO2 79 L ABG pO2 ABG HCO3 ABG O2 Saturation ABG Base Excess ABG Hemoglobin Oxyhemoglobin Sodium 147 H Potassium Chloride Carbon Dioxide BUN 132 H Creatinine 2.6 H Glucose 128 H POC Glucose Lactic Acid Phosphorus Magnesium AST 207 H ALT 144 H Alkaline Phosphatase 529 H Ammonia Total Creatine Kinase CK-MB (CK-2) NT-Pro-B Natriuret Pep Total Protein 6.1 L Albumin 2.4 L Free T4 Urine Creatinine Urine Chloride Crossmatch 03/06/19 03/06/19 03/06/19 05:35 13:06 15:20 WBC RBC Hgb Hct MCH MCHC RDW Plt Count Lymph % (Auto) Gem # Seg Neutrophils % Seg Neuts % (Manual) Lymphocytes % (Manual) Nucleated RBC % Seg Neutrophils # Seg Neutrophils # Man Lymphocytes # (Manual) Monocytes # (Manual) INR D-Dimer POC ABG pH 7.263 L ABG pH POC ABG pCO2 64.7 H POC ABG pO2 67 L ABG pO2 ABG HCO3 ABG O2 Saturation ABG Base Excess ABG Hemoglobin Oxyhemoglobin Sodium Potassium Chloride Carbon Dioxide BUN Creatinine Glucose POC Glucose 113 H 123 H Lactic Acid Phosphorus Magnesium AST ALT Alkaline Phosphatase Ammonia Total Creatine Kinase CK-MB (CK-2) NT-Pro-B Natriuret Pep Total Protein Albumin Free T4 Urine Creatinine Urine Chloride Crossmatch 03/06/19 03/06/19 03/07/19 18:41 23:33 04:34 WBC RBC Hgb Hct MCH MCHC RDW Plt Count Lymph % (Auto) Gem # Seg Neutrophils % Seg Neuts % (Manual) Lymphocytes % (Manual) Nucleated RBC % Seg Neutrophils # Seg Neutrophils # Man Lymphocytes # (Manual) Monocytes # (Manual) INR D-Dimer POC ABG pH 7.258 L ABG pH POC ABG pCO2 65.6 H POC ABG pO2 73 L ABG pO2 ABG HCO3 ABG O2 Saturation ABG Base Excess ABG Hemoglobin Oxyhemoglobin Sodium Potassium Chloride Carbon Dioxide BUN Creatinine Glucose POC Glucose 131 H 141 H Lactic Acid Phosphorus Magnesium AST ALT Alkaline Phosphatase Ammonia Total Creatine Kinase CK-MB (CK-2) NT-Pro-B Natriuret Pep Total Protein Albumin Free T4 Urine Creatinine Urine Chloride Crossmatch 03/07/19 03/07/19 03/07/19 05:13 11:47 12:19 WBC RBC Hgb Hct MCH MCHC RDW Plt Count Lymph % (Auto) Gem # Seg Neutrophils % Seg Neuts % (Manual) Lymphocytes % (Manual) Nucleated RBC % Seg Neutrophils # Seg Neutrophils # Man Lymphocytes # (Manual) Monocytes # (Manual) INR D-Dimer POC ABG pH ABG pH POC ABG pCO2 POC ABG pO2 ABG pO2 ABG HCO3 ABG O2 Saturation ABG Base Excess ABG Hemoglobin Oxyhemoglobin Sodium Potassium Chloride Carbon Dioxide BUN Creatinine Glucose POC Glucose 122 H 128 H 132 H Lactic Acid Phosphorus Magnesium AST ALT Alkaline Phosphatase Ammonia Total Creatine Kinase CK-MB (CK-2) NT-Pro-B Natriuret Pep Total Protein Albumin Free T4 Urine Creatinine Urine Chloride Crossmatch 03/07/19 03/07/19 03/07/19 16:19 17:45 23:14 WBC RBC Hgb Hct MCH MCHC RDW Plt Count Lymph % (Auto) Gem # Seg Neutrophils % Seg Neuts % (Manual) Lymphocytes % (Manual) Nucleated RBC % Seg Neutrophils # Seg Neutrophils # Man Lymphocytes # (Manual) Monocytes # (Manual) INR D-Dimer POC ABG pH 7.246 L ABG pH POC ABG pCO2 65.2 H POC ABG pO2 69 L ABG pO2 ABG HCO3 ABG O2 Saturation ABG Base Excess ABG Hemoglobin Oxyhemoglobin Sodium Potassium Chloride Carbon Dioxide BUN Creatinine Glucose POC Glucose 159 H 152 H Lactic Acid Phosphorus Magnesium AST ALT Alkaline Phosphatase Ammonia Total Creatine Kinase CK-MB (CK-2) NT-Pro-B Natriuret Pep Total Protein Albumin Free T4 Urine Creatinine Urine Chloride Crossmatch 03/08/19 03/08/19 03/08/19 04:09 04:51 06:30 WBC 27.8 H RBC 3.35 L Hgb 7.9 L Hct 27.0 L MCH 24 L MCHC 29 L RDW 23.0 H Plt Count Lymph % (Auto) Gem # Seg Neutrophils % Seg Neuts % (Manual) 91.0 H Lymphocytes % (Manual) 4.0 L Nucleated RBC % 5.0 H Seg Neutrophils # Seg Neutrophils # Man 25.3 H Lymphocytes # (Manual) 1.1 L Monocytes # (Manual) 1.1 H INR D-Dimer POC ABG pH 7.155 L ABG pH POC ABG pCO2 POC ABG pO2 79 L ABG pO2 ABG HCO3 ABG O2 Saturation ABG Base Excess ABG Hemoglobin Oxyhemoglobin Sodium Potassium Chloride Carbon Dioxide BUN Creatinine Glucose POC Glucose 153 H Lactic Acid Phosphorus Magnesium AST ALT Alkaline Phosphatase Ammonia Total Creatine Kinase CK-MB (CK-2) NT-Pro-B Natriuret Pep Total Protein Albumin Free T4 Urine Creatinine Urine Chloride Crossmatch 03/08/19 03/08/19 06:30 09:29 WBC RBC Hgb Hct MCH MCHC RDW Plt Count Lymph % (Auto) Gem # Seg Neutrophils % Seg Neuts % (Manual) Lymphocytes % (Manual) Nucleated RBC % Seg Neutrophils # Seg Neutrophils # Man Lymphocytes # (Manual) Monocytes # (Manual) INR D-Dimer POC ABG pH 7.182 L ABG pH POC ABG pCO2 POC ABG pO2 77 L ABG pO2 ABG HCO3 ABG O2 Saturation ABG Base Excess ABG Hemoglobin Oxyhemoglobin Sodium Potassium 6.5 H* D Chloride Carbon Dioxide BUN 164 H Creatinine 3.3 H Glucose 141 H POC Glucose Lactic Acid Phosphorus Magnesium AST 543 H ALT 280 H Alkaline Phosphatase 641 H Ammonia Total Creatine Kinase CK-MB (CK-2) NT-Pro-B Natriuret Pep Total Protein 6.2 L Albumin 2.5 L Free T4 Urine Creatinine Urine Chloride Crossmatch Allied health notes reviewed: RT
--- NOTE | 2019-03-08 11:51 | Progress Note ---
Assessment and Plan Assessment and plan: - Acute respiratory failure with hypoxia. Intubated and on MVS 03/01/19 Pulmonary following - Sepsis with shock. Continue per ID recommendation. Continue IV Meropenem, - Acute kidney injury. Etiology likely secondary to prerenal injury/ATN from sepsis/ARDS. Nephrology reports that patient would not be an ideal candidate for renal replacement initiation considering her other underlying comorbidities, especially metastatic breast cancer - Hyperkalemia. Etiology secondary to above. Patient received D50, IV insulin, bicarb IVP, IV lasix 80mg once. Also, nephrology initiated bicarb gtt at 50ml/hr. if hyperkalemia is refractory to medical treatment will need to discuss renal replacement therapy with family, however pt with overall poor prognosis and would not be an ideal candidate for detention HD. - Bilateral pneumonia Throacentesis culture 02/28/19 - no growth, no orgs on gram stain. 03/02/2019 sputum: gianfranco albicans ID following - Recurrent malignant pleural effusion s/p thoracentesis - Left breast cancer with mets to the bones and liver s/p surgery Dr. Self following [facility]. - ? Heart failure Echocardiogram revealed left ventricular size normal with no pericardial effusion Shock liver -Elevated LFTs and alkaline phosphatase. Right upper quadrant ultrasound pending - Hyperammonemia Cont lactulose as needed - Hypernatrmia Free water via [place]obb[place] - Hypertension Monitor BP - ELevated D- dimer CT angio was negative for PE - Poor prognosis. The high probability of a clinically significant, sudden or life threatening deterioration of the [respiratory neurological] system(s) required my full and direct attention, intervention and personal management. The aggregate critical care time was [32] minutes. This time is in addition to time spent performing reported procedures but includes the following: [x] Data Review and interpretation [x] Patient assessment and monitoring of vital signs [x] Documentation [x] Medication orders and management History Interval history: No new issues overnight. Hospitalist Physical - Constitutional Vitals: Temp Pulse Resp BP Pulse Ox 98.3 F 112 H 17 125/65 92 03/08/19 07:44 03/08/19 11:15 03/08/19 11:15 03/08/19 11:15 03/08/19 11:15 General appearance: Present: other (intubated) - EENT Eyes: Present: PERRL, EOM intact ENT: hearing intact, clear oral mucosa, dentition normal - Neck Neck: Present: supple, normal ROM - Respiratory Respiratory effort: normal Respiratory: bilateral: CTA - Cardiovascular Rhythm: regular Heart Sounds: Present: S1 & S2. Absent: gallop, rub - Extremities Extremities: no ischemia, No edema, Full ROM - Abdominal General gastrointestinal: soft, non-tender, non-distended, normal bowel sounds - Integumentary Integumentary: Present: clear, warm, dry - Neurologic Neurologic: CNII-XII intact, moves all extremities Results - Labs CBC & Chem 7: 03/08/19 06:30 03/08/19 06:30 Labs: Laboratory Last Values WBC 27.8 K/mm3 (4.5-11.0) H 03/08/19 06:30 RBC 3.35 M/mm3 (3.65-5.03) L 03/08/19 06:30 Hgb 7.9 gm/dl (10.1-14.3) L 03/08/19 06:30 Hct 27.0 % (30.3-42.9) L 03/08/19 06:30 MCV 81 fl (79-97) 03/08/19 06:30 MCH 24 pg (28-32) L 03/08/19 06:30 MCHC 29 % (30-34) L 03/08/19 06:30 RDW 23.0 % (13.2-15.2) H 03/08/19 06:30 Plt Count 316 K/mm3 (140-440) 03/08/19 06:30 Lymph % (Auto) Hydraulic Jack Adjuster 03/08/19 06:30 [place] % (Auto) Hydraulic Jack Adjuster 03/08/19 06:30 Eos % (Auto) Hydraulic Jack Adjuster 03/08/19 06:30 Baso % (Auto) Hydraulic Jack Adjuster 03/08/19 06:30 Lymph # Hydraulic Jack Adjuster 03/08/19 06:30 [place] # Hydraulic Jack Adjuster 03/08/19 06:30 Eos # Hydraulic Jack Adjuster 03/08/19 06:30 Baso # Hydraulic Jack Adjuster 03/08/19 06:30 Add Manual Diff Complete 03/08/19 06:30 Total Counted 100 03/08/19 06:30 Seg Neutrophils % Hydraulic Jack Adjuster 03/08/19 06:30 Seg Neuts % (Manual) 91.0 % (40.0-70.0) H 03/08/19 06:30 Band Neutrophils % 0 % 03/08/19 06:30 Lymphocytes % (Manual) 4.0 % (13.4-35.0) L 03/08/19 06:30 Reactive Lymphs % (Man) 0 % 03/08/19 06:30 Monocytes % (Manual) 4.0 % (0.0-7.3) 03/08/19 06:30 Eosinophils % (Manual) 0 % (0.0-4.3) 03/08/19 06:30 Basophils % (Manual) 0 % (0.0-1.8) 03/08/19 06:30 Metamyelocytes % 1.0 % 03/08/19 06:30 Myelocytes % 0 % 03/08/19 06:30 Promyelocytes % 0 % 03/08/19 06:30 Blast Cells % 0 % 03/08/19 06:30 Nucleated RBC % 5.0 % (0.0-0.9) H 03/08/19 06:30 Seg Neutrophils # Hydraulic Jack Adjuster 03/08/19 06:30 Seg Neutrophils # Man 25.3 K/mm3 (1.8-7.7) H 03/08/19 06:30 Band Neutrophils # 0.0 K/mm3 03/08/19 06:30 Lymphocytes # (Manual) 1.1 K/mm3 (1.2-5.4) L 03/08/19 06:30 Abs React Lymphs (Man) 0.0 K/mm3 03/08/19 06:30 Monocytes # (Manual) 1.1 K/mm3 (0.0-0.8) H 03/08/19 06:30 Eosinophils # (Manual) 0.0 K/mm3 (0.0-0.4) 03/08/19 06:30 Basophils # (Manual) 0.0 K/mm3 (0.0-0.1) 03/08/19 06:30 Metamyelocytes # 0.3 K/mm3 03/08/19 06:30 Myelocytes # 0.0 K/mm3 03/08/19 06:30 Promyelocytes # 0.0 K/mm3 03/08/19 06:30 Blast Cells # 0.0 K/mm3 03/08/19 06:30 WBC Morphology Not Reportable 03/08/19 06:30 Hypersegmented Neuts Not Reportable 03/08/19 06:30 Hyposegmented Neuts Not Reportable 03/08/19 06:30 Hypogranular Neuts Not Reportable 03/08/19 06:30 Smudge Cells Not Reportable 03/08/19 06:30 Toxic Granulation Not Reportable 03/08/19 06:30 Toxic Vacuolation Not Reportable 03/08/19 06:30 Dohle Bodies Not Reportable 03/08/19 06:30 Pelger-Huet Anomaly Not Reportable 03/08/19 06:30 Amelie Rods Not Reportable 03/08/19 06:30 Platelet Estimate Consistent w auto 03/08/19 06:30 Clumped Platelets Not Reportable 03/08/19 06:30 Plt Clumps, EDTA Not Reportable 03/08/19 06:30 Large Platelets Not Reportable 03/08/19 06:30 Giant Platelets Not Reportable 03/08/19 06:30 Platelet Satelliting Not Reportable 03/08/19 06:30 Plt Morphology Comment Not Reportable 03/08/19 06:30 RBC Morphology Not Reportable 03/08/19 06:30 Dimorphic RBCs Not Reportable 03/08/19 06:30 Polychromasia Not Reportable 03/08/19 06:30 Hypochromasia 2+ 03/08/19 06:30 Poikilocytosis Not Reportable 03/08/19 06:30 Anisocytosis Not Reportable 03/08/19 06:30 Microcytosis Not Reportable 03/08/19 06:30 Macrocytosis Not Reportable 03/08/19 06:30 Spherocytes Not Reportable 03/08/19 06:30 Pappenheimer Bodies Not Reportable 03/08/19 06:30 Sickle Cells Not Reportable 03/08/19 06:30 Target Cells Few 03/08/19 06:30 Tear Drop Cells Few 03/08/19 06:30 Ovalocytes Not Reportable 03/08/19 06:30 Stomatocytes 1+ 03/03/19 05:00 Helmet Cells Not Reportable 03/08/19 06:30 Massey-Coral Bodies Not Reportable 03/08/19 06:30 Guthrie Rings Not Reportable 03/08/19 06:30 Catherine Cells Not Reportable 03/08/19 06:30 Bite Cells Not Reportable 03/08/19 06:30 Crenated Cell Not Reportable 03/08/19 06:30 Elliptocytes Not Reportable 03/08/19 06:30 Acanthocytes (Spur) Not Reportable 03/08/19 06:30 Rouleaux Not Reportable 03/08/19 06:30 Hemoglobin C Crystals Not Reportable 03/08/19 06:30 Schistocytes Not Reportable 03/08/19 06:30 Malaria parasites Not Reportable 03/08/19 06:30 Jose Bodies Not Reportable 03/08/19 06:30 Hem Pathologist Commnt No 03/08/19 06:30 PT 14.8 Sec. (12.2-14.9) 02/27/19 12:38 INR 1.17 (0.87-1.13) H 02/27/19 12:38 APTT 26.9 Sec. (24.2-36.6) 02/27/19 12:38 D-Dimer 5778.32 ng/mlDDU (0-234) H 02/27/19 12:38 POC ABG pH 7.182 (7.35-7.45) L 03/08/19 09:29 ABG pH 7.335 pH Units (7.350-7.450) L 03/03/19 05:25 POC ABG pCO2 65.2 (35-45) H 03/07/19 16:19 ABG pCO2 61.3 mm Hg 03/03/19 05:25 POC ABG pO2 77 (80-105) L 03/08/19 09:29 ABG pO2 89.2 mm Hg (80.0-90.0) 03/03/19 05:25 POC ABG HCO3 28.1 (22-26 mml/L) 03/08/19 09:29 ABG HCO3 32.0 mmol/L (20.0-26.0) H 03/03/19 05:25 POC ABG Total CO2 30 (23-27mmol/L) 03/08/19 09:29 POC ABG O2 Sat 90 03/08/19 09:29 ABG O2 Saturation 97.0 % (95.0-99.0) 03/03/19 05:25 ABG O2 Content 11.1 (0.0-44) 03/03/19 05:25 POC ABG Base Excess 0 ((-2) - (+3)mmol/L) 03/08/19 09:29 ABG Base Excess 5.2 mmol/L (-2.0-3.0) H 03/03/19 05:25 ABG Hemoglobin 8.2 gm/dl (12.0-16.0) L 03/03/19 05:25 ABG Carboxyhemoglobin 1.7 % (0.0-5.0) 03/03/19 05:25 ABG Methemoglobin 0.5 % (0.0-1.5) 03/03/19 05:25 Oxyhemoglobin 94.9 % (95.0-99.0) L 03/03/19 05:25 FiO2 70 % 03/08/19 09:29 Sodium 142 mmol/L (137-145) 03/08/19 06:30 Potassium 6.5 mmol/L (3.6-5.0) H* D 03/08/19 06:30 Chloride 101.4 mmol/L (98-107) 03/08/19 06:30 Carbon Dioxide 26 mmol/L (22-30) 03/08/19 06:30 Anion Gap 21 mmol/L 03/08/19 06:30 BUN 164 mg/dL (7-17) H 03/08/19 06:30 Creatinine 3.3 mg/dL (0.7-1.2) H 03/08/19 06:30 Estimated GFR 18 ml/min 03/08/19 06:30 BUN/Creatinine Ratio 50 % 03/08/19 06:30 Glucose 141 mg/dL (65-100) H 03/08/19 06:30 POC Glucose 153 (70-105) H 03/08/19 04:51 Lactic Acid 0.90 mmol/L (0.7-2.0) 03/08/19 06:30 Calcium 9.2 mg/dL (8.4-10.2) 03/08/19 06:30 Phosphorus 3.30 mg/dL (2.5-4.5) D 03/03/19 05:00 Magnesium 2.90 mg/dL (1.7-2.3) H 03/03/19 05:00 Total Bilirubin 0.20 mg/dL (0.1-1.2) 03/08/19 06:30 Direct Bilirubin < 0.2 mg/dL (0-0.2) 02/27/19 11:33 Indirect Bilirubin 0.0 mg/dL 02/27/19 11:33 AST 543 units/L (5-40) H 03/08/19 06:30 ALT 280 units/L (7-56) H 03/08/19 06:30 Alkaline Phosphatase 641 units/L (35-129) H 03/08/19 06:30 Ammonia 51.0 umol/L (25-60) 03/06/19 04:55 Total Creatine Kinase 197 units/L (30-135) H 02/27/19 11:33 CK-MB (CK-2) 4.1 ng/mL (0.0-4.0) H 02/27/19 11:33 CK-MB (CK-2) Rel Index 2.0 (0-4) 02/27/19 11:33 Troponin T 0.027 ng/mL (0.00-0.029) 03/02/19 05:27 NT-Pro-B Natriuret Pep 2143 pg/mL (0-900) H 03/02/19 05:27 Total Protein 6.2 g/dL (6.3-8.2) L 03/08/19 06:30 Albumin 2.5 g/dL (3.9-5) L 03/08/19 06:30 Albumin/Globulin Ratio 0.7 % 03/08/19 06:30 Procalcitonin 2.22 ng/mL (<0.15) 03/02/19 17:00 TSH 0.427 mlU/mL (0.270-4.200) 03/03/19 15:54 Free T4 0.50 ng/dL (0.76-1.46) L 03/03/19 15:54 Urine Color Heather (Yellow) 03/04/19 12:39 Urine Turbidity Turbid (Clear) 03/04/19 12:39 Urine pH 5.0 (5.0-7.0) 03/04/19 12:39 Ur Specific [place] 1.023 (1.003-1.030) 03/04/19 12:39 Urine Protein 30 mg/dl mg/dL (Negative) 03/04/19 12:39 Urine Glucose (UA) Neg mg/dL (Negative) 03/04/19 12:39 Urine Ketones Tr mg/dL (Negative) 03/04/19 12:39 Urine Blood Mod (Negative) 03/04/19 12:39 Urine Nitrite Neg (Negative) 03/04/19 12:39 Urine Bilirubin Neg (Negative) 03/04/19 12:39 Urine Urobilinogen < 2.0 mg/dL (<2.0) 03/04/19 12:39 Ur Leukocyte Esterase Neg (Negative) 03/04/19 12:39 Urine WBC (Auto) 2.0 /HPF (0.0-6.0) 03/04/19 12:39 Urine RBC (Auto) 3.0 /HPF (0.0-6.0) 03/04/19 12:39 U Epithel Cells (Auto) 1.0 /HPF (0-13.0) 02/27/19 Unknown Urine Bacteria (Auto) 1+ /HPF (Negative) 03/04/19 12:39 WBC Casts 1 /LPF 02/27/19 Unknown Urine Mucus Few /HPF 03/04/19 12:39 Urine Creatinine 185.9 mg/dL (0.1-20.0) H 03/04/19 12:39 Urine Sodium 13 mmol/L 03/04/19 12:39 Urine Chloride 10.2 mmolL (110-250) L 03/04/19 12:39 Complement C3 173 mg/dL (83-193) 03/05/19 09:39 Complement C4 40 mg/dL (15-57) 03/05/19 09:39 Blood Type O POSITIVE 02/27/19 11:45 Antibody Screen Negative 02/27/19 11:45 Crossmatch See Detail 02/27/19 11:45 Active Medications - Current Medications Current Medications: Generic Name Dose Route Start Last Admin Trade Name Freq PRN Reason Stop Dose Admin Acetaminophen 650 mg 03/02/19 13:46 03/02/19 15:38 Tylenol PO 650 mg Q6H PRN Administration Fever >101 Albuterol 2.5 mg 02/27/19 21:08 02/28/19 12:35 Proventil IH 2.5 mg Q4HRT PRN Administration Shortness Of Breath Albuterol/Ipratropium 1 ampul 02/28/19 08:00 03/08/19 08:10 Duoneb *Not For Prn Use* IH 1 ampul TIDRT MANISH Administration Lipase/Protease/Amylase 1 each 03/03/19 08:[address] 10,500 Unit FEEDTUBE PRN PRN For Clogged Feeding Tube Enoxaparin Sodium 30 mg 03/04/19 10:00 03/08/19 10:50 Enoxaparin SUB-Q 30 mg QDAY MANISH Administration Famotidine 20 mg 03/05/19 10:00 03/08/19 09:23 Pepcid PO 20 mg DAILY MANISH Administration Hydrophilic Ointment 1 applic 03/02/19 04:40 Vaseline Lip Therapy TP Q2HR PRN Dry Lips Norepinephrine 4 mg in 250 mls @ 7.5 mls/hr 03/02/19 05:00 03/08/19 03:56 Levophed Drip 4 Mg/Ns 250 Ml IV 2 mcg/min TITR MANISH 7.5 mls/hr Administration Protocol 2 MCG/MIN Vasopressin 20 unit/ Sodium 101 mls @ 9.09 mls/hr 03/02/19 05:00 03/05/19 10:32 Chloride IV 0 units/min TITR MANISH 0 mls/hr Titration Protocol 0.03 UNITS/MIN Fentanyl Citrate 2,000 mcg in 100 mls @ 4.64 mls/hr 03/02/19 17:00 03/08/19 03:59 Fentanyl Drip Premix IV 4 mcg/kg/hr TITR MANISH 18.56 mls/hr Administration Protocol 1 MCG/KG/HR MEROPENEM/NS 1 GRAM/100 ML 1 gram in 100 mls @ 100 mls/hr 03/04/19 14:00 03/08/19 09:22 Merrem/Ns 1 Gram/100 Ml IV 100 mls/hr Q12HR MANISH Administration Protocol Propofol 1,000 mg in 100 mls @ 2.844 mls/hr 03/06/19 13:00 03/08/19 08:03 Diprivan 10 Mg/Ml IV 20 mcg/kg/min TITR MANISH 11.376 mls/hr Administration Protocol 5 MCG/KG/MIN Sodium Bicarbonate 150 meq/ 1,150 mls @ 50 mls/hr 03/08/19 11:00 03/08/19 10:37 Dextrose IV 50 mls/hr DIRECT MANISH Administration Insulin Human Lispro 0 unit 03/04/19 13:00 03/08/19 05:08 Humalog SUB-Q 3 unit Q6HR MANISH Administration Protocol Lactulose 20 gm 03/02/19 10:00 03/08/19 09:22 Cephulac PO 20 gm Q12HR MANISH Administration Methylprednisolone Sodium Succinate 40 mg 03/05/19 14:00 03/08/19 05:07 Solu-Medrol IV 40 mg Q8HR MANISH Administration Multi-Ingred Cream/Lotion/Oil/Oint 1 applic 03/02/19 16:43 Artificial Tears Ophth Oint OU Q4HR PRN Dry Eye(s) Simple Syrup 15 ml 03/03/19 08:54 Simple Syrup FEEDTUBE PRN PRN Hypoglycemia Simple Syrup 30 ml 03/03/19 08:54 Simple Syrup FEEDTUBE PRN PRN Hypoglycemia Sodium Bicarbonate 325 mg 03/03/19 08:54 Sodium Bicarbonate FEEDTUBE PRN PRN For Clogged Feeding Tube Nutrition/Malnutrition Assess - Dietary Evaluation Nutrition/Malnutrition Findings: Nutrition Notes Start: 02/28/19 13:21 Freq: Status: Active Protocol: Document 03/07/19 10:52 CC (Rec: 03/07/19 10:57 CC [email or web address]) Co-Sign 03/07/19 10:52 LP Nutrition Notes Initial or Follow up Reassessment Current Diagnosis Acute Kidney Injury,Sepsis, Respiratory Failure Other Pertinent Diagnosis Breast CA stage 4, Pneumonia, SIRS, L breast surgical wound Current Diet Nepro at 40ml/hr Labs/Tests Na 147 BUN 132 Creat 2.6 Pertinent Medications Propofol (gives 75 kcal) Solumedrol Height 5 ft 2 in Weight 94.8 kg [place] Body Weight (kg) 50.00 BMI 38.2 Subjective/Other Information Nepro running at goal rate of 40ml/hr. tolerating TF Percent of energy/protein needs met: 100%/78% Burn Absent Trauma Absent Current % PO Negligible Minimum of two criteria No physical signs of malnutrition #2 Nutrition Diagnosis Inadequate oral intake Diagnosis Progress(for reassessment Continues documentation) Is patient on ventilator? Yes Is Patient Ambulatory and/or Out of Bed No [facility] 1823.256 Kcal/Kg value to use for calculation 16 Approximate Energy Requirements Using 1517 kcal/Kg Calculation Used for Recommendations Kcal/kg Additional Notes PRO needs: 100g (2g/kg IBW 50 kg) Fluid needs: 1ml/kcal or per MD Nutrition Intervention Change Diet Order: continue TF Nutrition Support: Nepro at 40 ml/hr Flush 250 mls q4hr until hypernatremia resolves Flush 150 mls q4hr once hypernatremia resolves Goal #1 Continue to meet at least 75% of energy and protein needs via TF Goal #2 TF tolerance Anticipated Discharge Needs: Unable to determine at this time Follow-Up By: 03/11/19 Additional Comments F/U for TF tolerance, Na labs
[2019-03-08] MEDS ORDERED: SODIUM CHLORIDE 0.9% 100 ML IV PRN (13:45)
--- NOTE | 2019-03-08 14:10 | Operative Report ---
Operative Report Operative Report: Exam: Ultrasound guided placement of Vas-Cath Clinical indication: End-stage renal disease with volume overload Date: 03/08/2019 Procedure: Following an expiration of the risks, benefits and alternatives; written informed consent was obtained from the patient's. The procedure was performed at bedside in the ICU. Initial ultrasound evaluation of her right groin dimmest rated a patent right common femoral vein. The patient's right groin and thigh were prepped and draped in the usual sterile fashion. 1% lidocaine was used for anesthesia. Under ultrasound guidance, the right common femoral vein was cannulated with a 7 cm 18-gauge needle. A 0.035 guidewire was advanced centrally easily. The needl e was removed and following serial dilation over the guidewire, a 30 cm dialysis catheter was advanced over the guidewire centrally. The guidewire was removed. Nonpulsatile blood returned from all 3 ports. The catheter flushed and aspirated easily and was than locked with sterile saline. The catheter was securely fastened skin using 3-0 nylon suture and a sterile dressing applied. The patient tolerated the procedure well. There were no immediate post procedure complications. Sedation was not utilized. Continuous cardio pulmonary monitoring was utilized. Impression: Ultrasound guided placement of Vas-Cath via the right common femoral vein.
[2019-03-08 16:03] LABS: Hepatitis C Virus Antibody Non-Reactive (NonReactive)
[2019-03-08 16:26] LABS: Hepatitis B Surface Antigen Non-Reactive (Negative)
[2019-03-09] MEDS: fentaNYL DRIP Premix 2,000 MCG/100 ML BAG IV SCH ×4 (02:10→21:36)
--- NOTE | 2019-03-09 03:11 | XRay Report ---
CHEST 1 VIEW INDICATION: follow up respiratory failure. COMPARISON: Previous day. FINDINGS: Support devices: Unchanged. Heart: Within normal limits. Lungs/Pleura: Persistent bilateral infiltrate diffusely. No pneumothorax. Additional findings: None. IMPRESSION: Stable chest. Signer Name: Devon Quinones MD Signed: 03/09/2019 3:07 AM Workstation Name: [id number]
[2019-03-09] MEDS: INSULIN LISPRO 100 UNIT/ML SUB-Q SCH ×3 (06:07→20:14)
[2019-03-09] MEDS: methylPREDNISolone Sod Succinate 40 MG/1 ML INJ IV SCH ×3 (06:15→21:11)
[2019-03-09] MEDS ORDERED: SODIUM CHLORIDE 0.9% 100 ML IV PRN (07:55)
--- NOTE | 2019-03-09 08:00 | Progress Note ---
Assessment and Plan - Patient Problems (1) SELAM (acute kidney injury) Current Visit: Yes Status: Acute Plan to address problem: (1) SELAM (acute kidney injury) Current Visit: Yes Status: Acute Plan to address problem: Likely due to severe pre-renal injury/ATN in the setting of sepsis/ARDS. Maintain adequate hemodynamic parameters, pressor support to maintain HgB >7.0. Avoid nephrotoxins. Patient has an overall poor prognosis considering her other underlying comorbidities. After discussion with pt's , full aggressive care was desired incl. hemodialysis. HD was initiated on 03/08/19. Will arrange second HD today for volume control/solute clearance and correction of metabolic acidosis. pending complement levels and ANCA panel to current workup to r/o possible GN etiologies for renal insufficiency. (2) Hyperkalemia Current Visit: Yes Status: Acute Plan to address problem: to be corrected with HD. stat BMP ordered this AM (3) Acidosis Current Visit: Yes Status: Acute Plan to address problem: mixed resp + metabolic acidosis, cont vent management as per ICU team. cont bicarb IVP and gtt, 2nd HD arranged today (4) Acute respiratory failure Current Visit: Yes Status: Acute Qualifiers: Respiratory failure complication: hypoxia Qualified Code(s): J96.01 - Acute respiratory failure with hypoxia Plan to address problem: Intubated at this time. Vent management per pulmonary (5) Anemia Current Visit: Yes Status: Acute Qualifiers: Anemia type: unspecified type Qualified Code(s): D64.9 - Anemia, unspecified Plan to address problem: Transfuse to maintain Hgb>7.0 (6) Hypernatremia Current Visit: Yes Status: Acute Plan to address problem: Improving at this time. Will continue to closely monitor. Continues on free water flushes with Dobbhoff at 300 mL every 4 hours (7) Sepsis Current Visit: Yes Status: Acute Qualifiers: Sepsis type: sepsis due to unspecified organism Sepsis acute organ dysfunction status: unspecified Qualified Code(s): A41.9 - Sepsis, unspecified organism Plan to address problem: Continue on current antibiotic regimen, pressor support, to maintain MAP >65mmHg. Please ensure that antibiotics are dosed appropriately for diminished renal function. (8) Pneumonia Current Visit: Yes Status: Suspected Qualifiers: Pneumonia type: due to unspecified organism Laterality: bilateral Lung location: unspecified part of lung Qualified Code(s): J18.9 - Pneumonia, unspecified organism Plan to address problem: Infectious disease consult noted, antibiotics dosed per current renal parameters/renal function. Cultures noted, Olive albicans noted from sputum culture. Subjective Date of service: 03/09/19 Principal diagnosis: Ac. hypoxemic resp failure; Sev Sepsis; R. pleural effusion; Met. breast CA Interval history: pt remains intubated, sedated. tolerate HD well yesterday without acute issues, remains on vasopressor support with levophed at 12mcg/min Objective - Vital Signs Vital signs: Vital Signs - 12hr 03/08/19 03/08/19 03/08/19 20:00 20:14 20:15 Temperature 98.0 F Pulse Rate 106 H 108 H 107 H Pulse Rate [ Anterior Throughout] Respiratory 10 L 35 H 35 H Rate Respiratory Rate [Anterior Throughout] Blood Pressure 94/48 94/48 93/50 O2 Sat by Pulse 100 100 100 Oximetry 03/08/19 03/08/19 03/08/19 20:17 20:26 20:30 Temperature Pulse Rate 108 H 107 H Pulse Rate [ 108 H Anterior Throughout] Respiratory 35 H 16 Rate Respiratory 35 H Rate [Anterior Throughout] Blood Pressure 93/50 91/52 O2 Sat by Pulse 100 100 Oximetry 03/08/19 03/08/19 03/08/19 20:31 20:45 20:51 Temperature Pulse Rate 106 H 106 H 106 H Pulse Rate [ Anterior Throughout] Respiratory 17 18 25 H Rate Respiratory Rate [Anterior Throughout] Blood Pressure 91/52 91/52 96/52 O2 Sat by Pulse 100 100 100 Oximetry 03/08/19 03/08/19 03/08/19 21:00 21:15 21:30 Temperature Pulse Rate 106 H 108 H 105 H Pulse Rate [ Anterior Throughout] Respiratory 15 21 17 Rate Respiratory Rate [Anterior Throughout] Blood Pressure 97/49 93/48 110/52 O2 Sat by Pulse 100 100 99 Oximetry 03/08/19 03/08/19 03/08/19 21:45 22:00 22:15 Temperature Pulse Rate 107 H 106 H 106 H Pulse Rate [ Anterior Throughout] Respiratory 22 16 18 Rate Respiratory Rate [Anterior Throughout] Blood Pressure 119/55 98/50 103/45 O2 Sat by Pulse 99 90 98 Oximetry 03/08/19 03/08/19 03/08/19 22:30 22:45 23:00 Temperature Pulse Rate 109 H 106 H 107 H Pulse Rate [ Anterior Throughout] Respiratory 16 15 22 Rate Respiratory Rate [Anterior Throughout] Blood Pressure 113/49 92/51 88/49 O2 Sat by Pulse 100 100 97 Oximetry 03/08/19 03/08/19 03/08/19 23:15 23:30 23:45 Temperature Pulse Rate 108 H 107 H 106 H Pulse Rate [ Anterior Throughout] Respiratory 16 17 14 Rate Respiratory Rate [Anterior Throughout] Blood Pressure 97/52 87/57 102/57 O2 Sat by Pulse 97 99 97 Oximetry 03/09/19 03/09/19 03/09/19 00:00 00:01 00:15 Temperature 98.8 F Pulse Rate 105 H 106 H 106 H Pulse Rate [ Anterior Throughout] Respiratory 18 18 Rate Respiratory Rate [Anterior Throughout] Blood Pressure 107/57 118/53 O2 Sat by Pulse 94 97 97 Oximetry 03/09/19 03/09/19 03/09/19 00:30 00:45 01:00 Temperature Pulse Rate 107 H 107 H 106 H Pulse Rate [ Anterior Throughout] Respiratory 20 11 L 17 Rate Respiratory Rate [Anterior Throughout] Blood Pressure 111/55 103/52 109/55 O2 Sat by Pulse 97 97 97 Oximetry 03/09/19 03/09/19 03/09/19 01:15 01:30 01:45 Temperature Pulse Rate 106 H 107 H 106 H Pulse Rate [ Anterior Throughout] Respiratory 15 22 16 Rate Respiratory Rate [Anterior Throughout] Blood Pressure 102/56 102/56 90/54 O2 Sat by Pulse 96 97 97 Oximetry 03/09/19 03/09/19 03/09/19 02:00 02:15 02:30 Temperature Pulse Rate 106 H 105 H 103 H Pulse Rate [ Anterior Throughout] Respiratory 16 15 24 Rate Respiratory Rate [Anterior Throughout] Blood Pressure 81/54 102/57 94/58 O2 Sat by Pulse 96 97 91 Oximetry 03/09/19 03/09/19 03/09/19 02:45 03:00 03:15 Temperature Pulse Rate 107 H 104 H 107 H Pulse Rate [ Anterior Throughout] Respiratory 17 21 13 Rate Respiratory Rate [Anterior Throughout] Blood Pressure 86/59 88/55 84/60 O2 Sat by Pulse 93 93 94 Oximetry 03/09/19 03/09/19 03/09/19 03:30 03:45 04:00 Temperature 98.9 F Pulse Rate 106 H 105 H 103 H Pulse Rate [ Anterior Throughout] Respiratory 18 14 20 Rate Respiratory Rate [Anterior Throughout] Blood Pressure 103/55 106/56 102/55 O2 Sat by Pulse 93 94 93 Oximetry 03/09/19 03/09/19 03/09/19 04:11 04:15 04:30 Temperature Pulse Rate 105 H 107 H 106 H Pulse Rate [ Anterior Throughout] Respiratory 10 L 22 Rate Respiratory Rate [Anterior Throughout] Blood Pressure 106/56 108/60 94/53 O2 Sat by Pulse 94 95 97 Oximetry 03/09/19 03/09/19 03/09/19 04:45 05:00 05:15 Temperature Pulse Rate 103 H 103 H 104 H Pulse Rate [ Anterior Throughout] Respiratory 11 L 12 18 Rate Respiratory Rate [Anterior Throughout] Blood Pressure 86/40 87/44 78/43 O2 Sat by Pulse 97 97 96 Oximetry 03/09/19 03/09/19 03/09/19 05:30 05:45 06:00 Temperature Pulse Rate 104 H 105 H 106 H Pulse Rate [ Anterior Throughout] Respiratory 17 10 L 20 Rate Respiratory Rate [Anterior Throughout] Blood Pressure 78/41 78/42 92/48 O2 Sat by Pulse 98 98 98 Oximetry 03/09/19 03/09/19 06:15 06:30 Temperature Pulse Rate 107 H 107 H Pulse Rate [ Anterior Throughout] Respiratory 16 18 Rate Respiratory Rate [Anterior Throughout] Blood Pressure 102/49 92/48 O2 Sat by Pulse 98 97 Oximetry - General Appearance General appearance: chronically ill, sedated on ventilator, intubated EENT: ATNC, mucous membranes moist Neck: no JVD Respiratory: Present: Decreased Breath Sounds Cardiology: regular, S1S2 Gastrointestinal: normoactive bowel sounds Integumentary: no rash, other (+ edema ) Neurologic: other (intubated, sedated ) - Lab 03/08/19 06:30 03/08/19 06:30 Most recent lab results ABG pH 7.335 pH Units (7.350-7.450) L 03/03/19 05:25 ABG pCO2 61.3 mm Hg 03/03/19 05:25 ABG pO2 89.2 mm Hg (80.0-90.0) 03/03/19 05:25 ABG HCO3 32.0 mmol/L (20.0-26.0) H 03/03/19 05:25 ABG O2 Saturation 97.0 % (95.0-99.0) 03/03/19 05:25 Calcium 9.2 mg/dL (8.4-10.2) 03/08/19 06:30 Phosphorus 3.30 mg/dL (2.5-4.5) D 03/03/19 05:00 Magnesium 2.90 mg/dL (1.7-2.3) H 03/03/19 05:00 Urine Creatinine 185.9 mg/dL (0.1-20.0) H 03/04/19 12:39 Urine Sodium 13 mmol/L 03/04/19 12:39 Medications & Allergies - Medications Allergies/Adverse Reactions: Allergies aspirin Adverse Reaction (Verified 01/28/19 12:25) GI Upset Home Medications: Home Medications Medication Instructions Recorded Confirmed Last Taken Type amLODIPine 5 mg PO DAILY 01/27/19 02/27/19 02/15/19 10:00 History Albuterol Sulfate [Proventil Hfa] 6.7 gm IH Q6H PRN #1 can 02/11/19 02/27/19 02/15/19 15:00 Rx Clindamycin [Clindamycin CAP] 300 mg PO Q8H #21 cap 02/11/19 02/27/19 02/15/19 10:00 Rx oxyCODONE [roxiCODONE] 10 mg PO Q6HR PRN 02/15/19 02/27/19 Unknown History Budesonide/Formoterol Fumarate 2 puff IH BID #1 hfa.aer.ad 02/19/19 02/27/19 Unknown Rx [Symbicort 160-4.5 Mcg Inhaler] HYDROcodone/APAP 10-325 [[place] 1 each PO Q6HR PRN #30 tablet 02/19/19 02/27/19 Unknown Rx 10/325] cephALEXin [Keflex] 500 mg PO Q6HR #40 capsule 02/19/19 02/27/19 Unknown Rx Active Medications: Generic Name Dose Route Start Last Admin Trade Name Freq PRN Reason Stop Dose Admin Acetaminophen 650 mg 03/02/19 13:46 03/02/19 15:38 Tylenol PO 650 mg Q6H PRN Administration Fever >101 Albuterol 2.5 mg 02/27/19 21:08 02/28/19 12:35 Proventil IH 2.5 mg Q4HRT PRN Administration Shortness Of Breath Albuterol/Ipratropium 1 ampul 02/28/19 08:00 03/08/19 20:17 Duoneb *Not For Prn Use* IH 1 ampul TIDRT MANISH Administration Lipase/Protease/Amylase 1 each 03/03/19 08:[address] 10,500 Unit FEEDTUBE PRN PRN For Clogged Feeding Tube Enoxaparin Sodium 30 mg 03/04/19 10:00 03/08/19 10:50 Enoxaparin SUB-Q 30 mg QDAY MANISH Administration Famotidine 20 mg 03/05/19 10:00 03/08/19 09:23 Pepcid PO 20 mg DAILY MANISH Administration Hydrophilic Ointment 1 applic 03/02/19 04:40 Vaseline Lip Therapy TP Q2HR PRN Dry Lips Norepinephrine 4 mg in 250 mls @ 7.5 mls/hr 03/02/19 05:00 03/09/19 07:15 Levophed Drip 4 Mg/Ns 250 Ml IV 14 mcg/min TITR MANISH 52.5 mls/hr Titration Protocol 2 MCG/MIN Vasopressin 20 unit/ Sodium 101 mls @ 9.09 mls/hr 03/02/19 05:00 03/05/19 10:32 Chloride IV 0 units/min TITR MANISH 0 mls/hr Titration Protocol 0.03 UNITS/MIN Fentanyl Citrate 2,000 mcg in 100 mls @ 4.64 mls/hr 03/02/19 17:00 03/09/19 02:10 Fentanyl Drip Premix IV 4 mcg/kg/hr TITR MANISH 18.56 mls/hr Administration Protocol 1 MCG/KG/HR MEROPENEM/NS 1 GRAM/100 ML 1 gram in 100 mls @ 100 mls/hr 03/04/19 14:00 03/08/19 21:13 Merrem/Ns 1 Gram/100 Ml IV 100 mls/hr Q12HR MANISH Administration Protocol Propofol 1,000 mg in 100 mls @ 2.844 mls/hr 03/06/19 13:00 03/08/19 23:51 Diprivan 10 Mg/Ml IV 20 mcg/kg/min TITR MANISH 11.376 mls/hr Administration Protocol 5 MCG/KG/MIN Sodium Bicarbonate 150 meq/ 1,150 mls @ 100 mls/hr 03/08/19 11:00 03/08/19 10:37 Dextrose IV 50 mls/hr DIRECT MANISH Administration Sodium Chloride 100 mls @ 999 mls/hr 03/08/19 13:45 Nacl 0.9% IV CUAUHTEMOC PRN Hypotension Sodium Chloride 100 mls @ 999 mls/hr 03/09/19 07:55 Nacl 0.9% IV CUAUHTEMOC PRN Hypotension Insulin Human Lispro 0 unit 03/04/19 13:00 03/09/19 06:07 Humalog SUB-Q Not Given Q6HR [facility] Protocol Lactulose 20 gm 03/02/19 10:00 03/08/19 21:13 Cephulac PO 20 gm Q12HR MANISH Administration Methylprednisolone Sodium Succinate 40 mg 03/05/19 14:00 03/09/19 06:15 Solu-Medrol IV 40 mg Q8HR MANISH Administration Multi-Ingred Cream/Lotion/Oil/Oint 1 applic 03/02/19 16:43 Artificial Tears Ophth Oint OU Q4HR PRN Dry Eye(s) Simple Syrup 15 ml 03/03/19 08:54 Simple Syrup FEEDTUBE PRN PRN Hypoglycemia Simple Syrup 30 ml 03/03/19 08:54 Simple Syrup FEEDTUBE PRN PRN Hypoglycemia Sodium Bicarbonate 325 mg 03/03/19 08:54 Sodium Bicarbonate FEEDTUBE PRN PRN For Clogged Feeding Tube
[2019-03-09] MEDS: IPRATROPIUM/ALBUTEROL SULFATE 3 ML AMPUL.NEB IH SCH ×3 (08:22→21:28)
[2019-03-09 08:35] LABS: Calcium 8.5 mg/dL (8.4-10.2)
[2019-03-09] MEDS: PROPOFOL 1,000 MG/100 ML BOTTLE IV SCH (08:36)
[2019-03-09] MEDS: FAMOTIDINE 20 MG TAB PO SCH (09:16)
[2019-03-09] MEDS: LACTULOSE 20 GM/30 ML ORAL LIQD PO SCH ×2 (09:17→21:11)
[2019-03-09] MEDS: ENOXAPARIN 30 MG/0.3 ML INJ SUB-Q SCH (09:17)
[2019-03-09] MEDS: SODIUM BICARBONATE 150 MEQ in DEXTROSE 5% IN WATER 1,000 ML IV SCH ×2 (09:18→20:09)
[2019-03-09] MEDS: MEROPENEM/NS 1 GRAM/100 ML 1 GRAM/100 ML BAG IV SCH ×2 (09:18→21:12)
[2019-03-09] MEDS: NORepinephrine/NS 4 MG-250 ML 4 MG/250 ML BAG IV SCH ×2 (09:58→23:25)
--- NOTE | 2019-03-09 12:05 | Progress Note ---
Assessment and Plan Assessment and plan: - Acute respiratory failure with hypoxia. Intubated and on MVS 03/01/19 Pulmonary following - Sepsis with shock. Continue per ID recommendation. Continue IV Meropenem, - Acute kidney injury. Etiology likely secondary to prerenal injury/ATN from sepsis/ARDS. Nephrology reports that patient would not be an ideal candidate for renal replacement initiation considering her other underlying comorbidities, especially metastatic breast cancer - Hyperkalemia. Etiology secondary to above. Patient received D50, IV insulin, bicarb IVP, IV lasix 80mg once. Also, nephrology initiated bicarb gtt at 50ml/hr. if hyperkalemia is refractory to medical treatment will need to discuss renal replacement therapy with family, however pt with overall poor prognosis and would not be an ideal candidate for half-way HD. - Bilateral pneumonia Throacentesis culture 02/28/19 - no growth, no orgs on gram stain. 03/02/2019 sputum: gianfranco albicans ID following - Recurrent malignant pleural effusion s/p thoracentesis - Left breast cancer with mets to the bones and liver s/p surgery Dr. Self following [facility]. - ? Heart failure Echocardiogram revealed left ventricular size normal with no pericardial effusion Shock liver -Elevated LFTs and alkaline phosphatase. Right upper quadrant ultrasound pending - Hyperammonemia Cont lactulose as needed - Hypernatrmia Free water via [place] - Hypertension Monitor BP - ELevated D- dimer CT angio was negative for PE - Poor prognosis. The high probability of a clinically significant, sudden or life threatening deterioration of the [respiratory neurological] system(s) required my full and direct attention, intervention and personal management. The aggregate critical care time was [31] minutes. This time is in addition to time spent performing reported procedures but includes the following: [x] Data Review and interpretation [x] Patient assessment and monitoring of vital signs [x] Documentation [x] Medication orders and management History Interval history: No new issues overnight. Hospitalist Physical - Constitutional Vitals: Temp Pulse Resp BP Pulse Ox 98.0 F 93 H 18 126/56 92 03/09/19 08:00 03/09/19 12:00 03/09/19 12:00 03/09/19 12:00 03/09/19 12:00 General appearance: Present: other (intubated) - EENT Eyes: Present: PERRL, EOM intact ENT: hearing intact, clear oral mucosa, dentition normal - Neck Neck: Present: supple, normal ROM - Respiratory Respiratory effort: normal Respiratory: bilateral: CTA - Cardiovascular Rhythm: regular Heart Sounds: Present: S1 & S2. Absent: gallop, rub - Extremities Extremities: no ischemia, No edema, Full ROM - Abdominal General gastrointestinal: soft, non-tender, non-distended, normal bowel sounds - Integumentary Integumentary: Present: clear, warm, dry - Neurologic Neurologic: CNII-XII intact, moves all extremities Results - Labs CBC & Chem 7: 03/08/19 06:30 03/09/19 08:00 Labs: Laboratory Last Values WBC 27.8 K/mm3 (4.5-11.0) H 03/08/19 06:30 RBC 3.35 M/mm3 (3.65-5.03) L 03/08/19 06:30 Hgb 7.9 gm/dl (10.1-14.3) L 03/08/19 06:30 Hct 27.0 % (30.3-42.9) L 03/08/19 06:30 MCV 81 fl (79-97) 03/08/19 06:30 MCH 24 pg (28-32) L 03/08/19 06:30 MCHC 29 % (30-34) L 03/08/19 06:30 RDW 23.0 % (13.2-15.2) H 03/08/19 06:30 Plt Count 316 K/mm3 (140-440) 03/08/19 06:30 Lymph % (Auto) Pin Machine Operator 03/08/19 06:30 Mclennan % (Auto) Pin Machine Operator 03/08/19 06:30 Eos % (Auto) Pin Machine Operator 03/08/19 06:30 Baso % (Auto) Pin Machine Operator 03/08/19 06:30 Lymph # Pin Machine Operator 03/08/19 06:30 Mclennan # Pin Machine Operator 03/08/19 06:30 Eos # Pin Machine Operator 03/08/19 06:30 Baso # Pin Machine Operator 03/08/19 06:30 Add Manual Diff Complete 03/08/19 06:30 Total Counted 100 03/08/19 06:30 Seg Neutrophils % Pin Machine Operator 03/08/19 06:30 Seg Neuts % (Manual) 91.0 % (40.0-70.0) H 03/08/19 06:30 Band Neutrophils % 0 % 03/08/19 06:30 Lymphocytes % (Manual) 4.0 % (13.4-35.0) L 03/08/19 06:30 Reactive Lymphs % (Man) 0 % 03/08/19 06:30 Monocytes % (Manual) 4.0 % (0.0-7.3) 03/08/19 06:30 Eosinophils % (Manual) 0 % (0.0-4.3) 03/08/19 06:30 Basophils % (Manual) 0 % (0.0-1.8) 03/08/19 06:30 Metamyelocytes % 1.0 % 03/08/19 06:30 Myelocytes % 0 % 03/08/19 06:30 Promyelocytes % 0 % 03/08/19 06:30 Blast Cells % 0 % 03/08/19 06:30 Nucleated RBC % 5.0 % (0.0-0.9) H 03/08/19 06:30 Seg Neutrophils # Pin Machine Operator 03/08/19 06:30 Seg Neutrophils # Man 25.3 K/mm3 (1.8-7.7) H 03/08/19 06:30 Band Neutrophils # 0.0 K/mm3 03/08/19 06:30 Lymphocytes # (Manual) 1.1 K/mm3 (1.2-5.4) L 03/08/19 06:30 Abs React Lymphs (Man) 0.0 K/mm3 03/08/19 06:30 Monocytes # (Manual) 1.1 K/mm3 (0.0-0.8) H 03/08/19 06:30 Eosinophils # (Manual) 0.0 K/mm3 (0.0-0.4) 03/08/19 06:30 Basophils # (Manual) 0.0 K/mm3 (0.0-0.1) 03/08/19 06:30 Metamyelocytes # 0.3 K/mm3 03/08/19 06:30 Myelocytes # 0.0 K/mm3 03/08/19 06:30 Promyelocytes # 0.0 K/mm3 03/08/19 06:30 Blast Cells # 0.0 K/mm3 03/08/19 06:30 WBC Morphology Not Reportable 03/08/19 06:30 Hypersegmented Neuts Not Reportable 03/08/19 06:30 Hyposegmented Neuts Not Reportable 03/08/19 06:30 Hypogranular Neuts Not Reportable 03/08/19 06:30 Smudge Cells Not Reportable 03/08/19 06:30 Toxic Granulation Not Reportable 03/08/19 06:30 Toxic Vacuolation Not Reportable 03/08/19 06:30 Dohle Bodies Not Reportable 03/08/19 06:30 Pelger-Huet Anomaly Not Reportable 03/08/19 06:30 Amelie Rods Not Reportable 03/08/19 06:30 Platelet Estimate Consistent w auto 03/08/19 06:30 Clumped Platelets Not Reportable 03/08/19 06:30 Plt Clumps, EDTA Not Reportable 03/08/19 06:30 Large Platelets Not Reportable 03/08/19 06:30 Giant Platelets Not Reportable 03/08/19 06:30 Platelet Satelliting Not Reportable 03/08/19 06:30 Plt Morphology Comment Not Reportable 03/08/19 06:30 RBC Morphology Not Reportable 03/08/19 06:30 Dimorphic RBCs Not Reportable 03/08/19 06:30 Polychromasia Not Reportable 03/08/19 06:30 Hypochromasia 2+ 03/08/19 06:30 Poikilocytosis Not Reportable 03/08/19 06:30 Anisocytosis Not Reportable 03/08/19 06:30 Microcytosis Not Reportable 03/08/19 06:30 Macrocytosis Not Reportable 03/08/19 06:30 Spherocytes Not Reportable 03/08/19 06:30 Pappenheimer Bodies Not Reportable 03/08/19 06:30 Sickle Cells Not Reportable 03/08/19 06:30 Target Cells Few 03/08/19 06:30 Tear Drop Cells Few 03/08/19 06:30 Ovalocytes Not Reportable 03/08/19 06:30 Stomatocytes 1+ 03/03/19 05:00 Helmet Cells Not Reportable 03/08/19 06:30 [place] Bodies Not Reportable 03/08/19 06:30 [place] Rings Not Reportable 03/08/19 06:30 [place] Cells Not Reportable 03/08/19 06:30 Bite Cells Not Reportable 03/08/19 06:30 Crenated Cell Not Reportable 03/08/19 06:30 Elliptocytes Not Reportable 03/08/19 06:30 Acanthocytes (Spur) Not Reportable 03/08/19 06:30 Rouleaux Not Reportable 03/08/19 06:30 Hemoglobin C Crystals Not Reportable 03/08/19 06:30 Schistocytes Not Reportable 03/08/19 06:30 Malaria parasites Not Reportable 03/08/19 06:30 Jose Bodies Not Reportable 03/08/19 06:30 Hem Pathologist Commnt No 03/08/19 06:30 PT 14.8 Sec. (12.2-14.9) 02/27/19 12:38 INR 1.17 (0.87-1.13) H 02/27/19 12:38 APTT 26.9 Sec. (24.2-36.6) 02/27/19 12:38 D-Dimer 5778.32 ng/mlDDU (0-234) H 02/27/19 12:38 POC ABG pH 7.160 (7.35-7.45) L 03/09/19 05:54 ABG pH 7.335 pH Units (7.350-7.450) L 03/03/19 05:25 POC ABG pCO2 65.2 (35-45) H 03/07/19 16:19 ABG pCO2 61.3 mm Hg 03/03/19 05:25 POC ABG pO2 89 (80-105) 03/09/19 05:54 ABG pO2 89.2 mm Hg (80.0-90.0) 03/03/19 05:25 POC ABG HCO3 34.6 (22-26 mml/L) 03/09/19 05:54 ABG HCO3 32.0 mmol/L (20.0-26.0) H 03/03/19 05:25 POC ABG Total CO2 37 (23-27mmol/L) 03/09/19 05:54 POC ABG O2 Sat 93 03/09/19 05:54 ABG O2 Saturation 97.0 % (95.0-99.0) 03/03/19 05:25 ABG O2 Content 11.1 (0.0-44) 03/03/19 05:25 POC ABG Base Excess 6 ((-2) - (+3)mmol/L) 03/09/19 05:54 ABG Base Excess 5.2 mmol/L (-2.0-3.0) H 03/03/19 05:25 ABG Hemoglobin 8.2 gm/dl (12.0-16.0) L 03/03/19 05:25 ABG Carboxyhemoglobin 1.7 % (0.0-5.0) 03/03/19 05:25 ABG Methemoglobin 0.5 % (0.0-1.5) 03/03/19 05:25 Oxyhemoglobin 94.9 % (95.0-99.0) L 03/03/19 05:25 FiO2 85 % 03/09/19 05:54 Sodium 141 mmol/L (137-145) 03/09/19 08:00 Potassium 5.6 mmol/L (3.6-5.0) H 03/09/19 08:00 Chloride 95.5 mmol/L (98-107) L 03/09/19 08:00 Carbon Dioxide 27 mmol/L (22-30) 03/09/19 08:00 Anion Gap 24 mmol/L 03/09/19 08:00 BUN 98 mg/dL (7-17) H 03/09/19 08:00 Creatinine 2.7 mg/dL (0.7-1.2) H 03/09/19 08:00 Estimated GFR 22 ml/min 03/09/19 08:00 BUN/Creatinine Ratio 36 % 03/09/19 08:00 Glucose 143 mg/dL (65-100) H 03/09/19 08:00 POC Glucose 134 (70-105) H 03/09/19 05:35 Lactic Acid 0.90 mmol/L (0.7-2.0) 03/08/19 06:30 Calcium 8.5 mg/dL (8.4-10.2) 03/09/19 08:00 Phosphorus 3.30 mg/dL (2.5-4.5) D 03/03/19 05:00 Magnesium 2.90 mg/dL (1.7-2.3) H 03/03/19 05:00 Total Bilirubin 0.20 mg/dL (0.1-1.2) 03/08/19 06:30 Direct Bilirubin < 0.2 mg/dL (0-0.2) 02/27/19 11:33 Indirect Bilirubin 0.0 mg/dL 02/27/19 11:33 AST 543 units/L (5-40) H 03/08/19 06:30 ALT 280 units/L (7-56) H 03/08/19 06:30 Alkaline Phosphatase 641 units/L (35-129) H 03/08/19 06:30 Ammonia 51.0 umol/L (25-60) 03/06/19 04:55 Total Creatine Kinase 197 units/L (30-135) H 02/27/19 11:33 CK-MB (CK-2) 4.1 ng/mL (0.0-4.0) H 02/27/19 11:33 CK-MB (CK-2) Rel Index 2.0 (0-4) 02/27/19 11:33 Troponin T 0.027 ng/mL (0.00-0.029) 03/02/19 05:27 NT-Pro-B Natriuret Pep 2143 pg/mL (0-900) H 03/02/19 05:27 Total Protein 6.2 g/dL (6.3-8.2) L 03/08/19 06:30 Albumin 2.5 g/dL (3.9-5) L 03/08/19 06:30 Albumin/Globulin Ratio 0.7 % 03/08/19 06:30 Procalcitonin 2.22 ng/mL (<0.15) 03/02/19 17:00 TSH 0.427 mlU/mL (0.270-4.200) 03/03/19 15:54 Free T4 0.50 ng/dL (0.76-1.46) L 03/03/19 15:54 Urine Color Heather (Yellow) 03/04/19 12:39 Urine Turbidity Turbid (Clear) 03/04/19 12:39 Urine pH 5.0 (5.0-7.0) 03/04/19 12:39 Ur Specific [place] 1.023 (1.003-1.030) 03/04/19 12:39 Urine Protein 30 mg/dl mg/dL (Negative) 03/04/19 12:39 Urine Glucose (UA) Neg mg/dL (Negative) 03/04/19 12:39 Urine Ketones Tr mg/dL (Negative) 03/04/19 12:39 Urine Blood Mod (Negative) 03/04/19 12:39 Urine Nitrite Neg (Negative) 03/04/19 12:39 Urine Bilirubin Neg (Negative) 03/04/19 12:39 Urine Urobilinogen < 2.0 mg/dL (<2.0) 03/04/19 12:39 Ur Leukocyte Esterase Neg (Negative) 03/04/19 12:39 Urine WBC (Auto) 2.0 /HPF (0.0-6.0) 03/04/19 12:39 Urine RBC (Auto) 3.0 /HPF (0.0-6.0) 03/04/19 12:39 U Epithel Cells (Auto) 1.0 /HPF (0-13.0) 02/27/19 Unknown Urine Bacteria (Auto) 1+ /HPF (Negative) 03/04/19 12:39 WBC Casts 1 /LPF 02/27/19 Unknown Urine Mucus Few /HPF 03/04/19 12:39 Urine Creatinine 185.9 mg/dL (0.1-20.0) H 03/04/19 12:39 Urine Sodium 13 mmol/L 03/04/19 12:39 Urine Chloride 10.2 mmolL (110-250) L 03/04/19 12:39 Complement C3 173 mg/dL (83-193) 03/05/19 09:39 Complement C4 40 mg/dL (15-57) 03/05/19 09:39 Hepatitis A IgM Ab Non-reactive (NonReactive) 03/08/19 15:05 Hep Bs Antigen Non-reactive (Negative) 03/08/19 15:05 Hep B Core IgM Ab Non-reactive (NonReactive) 03/08/19 15:05 Hepatitis C Antibody Non-reactive (NonReactive) 03/08/19 15:05 Blood Type O POSITIVE 02/27/19 11:45 Antibody Screen Negative 02/27/19 11:45 Crossmatch See Detail 02/27/19 11:45 Active Medications - Current Medications Current Medications: Generic Name Dose Route Start Last Admin Trade Name Freq PRN Reason Stop Dose Admin Acetaminophen 650 mg 03/02/19 13:46 03/02/19 15:38 Tylenol PO 650 mg Q6H PRN Administration Fever >101 Albuterol 2.5 mg 02/27/19 21:08 02/28/19 12:35 Proventil IH 2.5 mg Q4HRT PRN Administration Shortness Of Breath Albuterol/Ipratropium 1 ampul 02/28/19 08:00 03/09/19 08:22 Duoneb *Not For Prn Use* IH 1 ampul TIDRT MANISH Administration Lipase/Protease/Amylase 1 each 03/03/19 08:54 Pancreanna Zamora 10,500 Unit FEEDTUBE PRN PRN For Clogged Feeding Tube Enoxaparin Sodium 30 mg 03/04/19 10:00 03/09/19 09:17 Enoxaparin SUB-Q 30 mg QDAY MANISH Administration Famotidine 20 mg 03/10/19 10:00 Pepcid IV QDAY MANISH Hydrophilic Ointment 1 applic 03/02/19 04:40 Vaseline Lip Therapy TP Q2HR PRN Dry Lips Norepinephrine 4 mg in 250 mls @ 7.5 mls/hr 03/02/19 05:00 03/09/19 11:30 Levophed Drip 4 Mg/Ns 250 Ml IV 4 mcg/min TITR MANISH 15 mls/hr Titration Protocol 2 MCG/MIN Vasopressin 20 unit/ Sodium 101 mls @ 9.09 mls/hr 03/02/19 05:00 03/05/19 10:32 Chloride IV 0 units/min TITR MANISH 0 mls/hr Titration Protocol 0.03 UNITS/MIN Fentanyl Citrate 2,000 mcg in 100 mls @ 4.64 mls/hr 03/02/19 17:00 03/09/19 11:42 Fentanyl Drip Premix IV 3 mcg/kg/hr TITR MANISH 13.92 mls/hr Titration Protocol 1 MCG/KG/HR MEROPENEM/NS 1 GRAM/100 ML 1 gram in 100 mls @ 100 mls/hr 03/04/19 14:00 03/09/19 09:18 Merrem/Ns 1 Gram/100 Ml IV 100 mls/hr Q12HR MANISH Administration Protocol Propofol 1,000 mg in 100 mls @ 2.844 mls/hr 03/06/19 13:00 03/09/19 10:52 Diprivan 10 Mg/Ml IV 0 mcg/kg/min TITR MANISH 0 mls/hr Titration Protocol 5 MCG/KG/MIN Sodium Bicarbonate 150 meq/ 1,150 mls @ 100 mls/hr 03/08/19 11:00 03/09/19 09:18 Dextrose IV 100 mls/hr DIRECT MANISH Administration Sodium Chloride 100 mls @ 999 mls/hr 03/08/19 13:45 Nacl 0.9% IV CUAUHTEMOC PRN Hypotension Sodium Chloride 100 mls @ 999 mls/hr 03/09/19 07:55 Nacl 0.9% IV CUAUHTEMOC PRN Hypotension Insulin Human Lispro 0 unit 03/04/19 13:00 03/09/19 06:07 Humalog SUB-Q Not Given Q6HR [facility] Protocol Lactulose 20 gm 03/02/19 10:00 03/09/19 09:17 Cephulac PO 20 gm Q12HR MANISH Administration Magnesium Citrate 150 ml 03/09/19 14:00 Citrate Of Magnesia PO 03/09/19 14:01 ONCE ONE Methylprednisolone Sodium Succinate 40 mg 03/05/19 14:00 03/09/19 06:15 Solu-Medrol IV 40 mg Q8HR MANISH Administration Multi-Ingred Cream/Lotion/Oil/Oint 1 applic 03/02/19 16:43 Artificial Tears Ophth Oint OU Q4HR PRN Dry Eye(s) Simple Syrup 15 ml 03/03/19 08:54 Simple Syrup FEEDTUBE PRN PRN Hypoglycemia Simple Syrup 30 ml 03/03/19 08:54 Simple Syrup FEEDTUBE PRN PRN Hypoglycemia Sodium Bicarbonate 325 mg 03/03/19 08:54 Sodium Bicarbonate FEEDTUBE PRN PRN For Clogged Feeding Tube Nutrition/Malnutrition Assess - Dietary Evaluation Nutrition/Malnutrition Findings: Nutrition Notes Start: 02/28/19 13:21 Freq: Status: Active Protocol: Document 03/07/19 10:52 CC (Rec: 03/07/19 10:57 CC [id number]) Co-Sign 03/07/19 10:52 LP Nutrition Notes Initial or Follow up Reassessment Current Diagnosis Acute Kidney Injury,Sepsis, Respiratory Failure Other Pertinent Diagnosis Breast CA stage 4, Pneumonia, SIRS, L breast surgical wound Current Diet Nepro at 40ml/hr Labs/Tests Na 147 BUN 132 Creat 2.6 Pertinent Medications Propofol (gives 75 kcal) Solumedrol Height 5 ft 2 in Weight 94.8 kg [place] Body Weight (kg) 50.00 BMI 38.2 Subjective/Other Information Nepro running at goal rate of 40ml/hr. tolerating TF Percent of energy/protein needs met: 100%/78% Burn Absent Trauma Absent Current % PO Negligible Minimum of two criteria No physical signs of malnutrition #2 Nutrition Diagnosis Inadequate oral intake Diagnosis Progress(for reassessment Continues documentation) Is patient on ventilator? Yes Is Patient Ambulatory and/or Out of Bed No REE-([place]-St. Jeor-confined to bed) 1823.256 Kcal/Kg value to use for calculation 16 Approximate Energy Requirements Using 1517 kcal/Kg Calculation Used for Recommendations Kcal/kg Additional Notes PRO needs: 100g (2g/kg IBW 50 kg) Fluid needs: 1ml/kcal or per MD Nutrition Intervention Change Diet Order: continue TF Nutrition Support: Nepro at 40 ml/hr Flush 250 mls q4hr until hypernatremia resolves Flush 150 mls q4hr once hypernatremia resolves Goal #1 Continue to meet at least 75% of energy and protein needs via TF Goal #2 TF tolerance Anticipated Discharge Needs: Unable to determine at this time Follow-Up By: 03/11/19 Additional Comments F/U for TF tolerance, Na labs
--- NOTE | 2019-03-09 12:33 | Progress Note ---
Assessment and Plan Cultures: Blood culture 02/27/19 no growth to date Urine culture 02/27/19 no growth to date Throacentesis culture 02/28/19 - no growth, no orgs on gram stain. 03/02/2019 sputum: olive albicans Assessment: 49 yo F PMHx metastatic breast cancer admitted with worsening shortness of breath. 1. Acute sepsis with shock - leukocytosis worsening likely reactive to malignancy. On and off pressors. Likely secondary to pneumonia. Breast wound looks clean. 2. B/L Pneumonia with malignant effusion - difficult to tell with imaging. S/P thoracentesis, no growth on culture. Cythology of pleural fluid with malignant cells. Sputum with Olive - colonization. 3. Large breast wound - no obvious purulence and family denies any issues with the wound at this time. Obvious risk for infection, but at present appears stable. 4. Metastatic breast cancer 5. SELAM: Creatinine worsening. s/p emergent HD 6. Worsening LFTs and alkaline phosphatase, bilirubin normal. ?shock liver v/s mets. RUQ US suggestive of contracted gall bladder, multiple gall stones with possible chronic cholecystitis. Recs: Continue IV Meropenem, renally adjusted D6 of 7 Overall extremely poor prognosis with malignant pleural effusion consider palliative care please remove lawson if not needed right femoral line should be exchanged to neck site if HD is to be continued Will follow. Su Reynaga MD Infectious Diseases [facility] ([facility]) M [phone] O [phone] Subjective Date of service: 03/09/19 Principal diagnosis: Ac. hypoxemic resp failure; Sev Sepsis; R. pleural effusion; Met. breast CA Interval history: Remains intubated on the vent on pressors-levo at 4, fentanyl. No fever. Objective - Exam Narrative Exam: Constitutional: sedated, intubated Head, Ears, Nose: Normocephalic, atraumatic. External ears, nose normal Eyes: Conjunctivae/corneas clear. No icterus. No ptosis. Neck: intubated Oral: intubated Cardiovascular: S1, S2 normal. Respiratory: Good air entry, clear to auscultation bilaterally GI: Soft, non-tender; bowel sounds normal. No peritoneal signs Musculoskeletal: No pedal edema, no cyanosis. Skin: large left breast wound + with dressing no drainage, right breast with induration Hem/Lymphatic: No palpable cervical or supraclavicular nodes. No lymphangitis Psych: sedated Neurological: sedated, intubated, on vent +lawson right femoral TLC - Constitutional Vitals: Vital Signs Temp Pulse Resp BP Pulse Ox 98.0 F 88 18 114/66 93 03/09/19 08:00 03/09/19 12:21 03/09/19 12:00 03/09/19 12:21 03/09/19 12:21 Temperature -Last 24 Hours Temperature 98.0 F Temperature 98 F Temperature 98.9 F Temperature 98.8 F Temperature 98.0 F Temperature 97.6 F Temperature 97.6 F Temperature 97.1 F - Labs CBC & Chem 7: 03/08/19 06:30 03/09/19 08:00 Labs: Abnormal lab results 03/08/19 03/08/19 03/08/19 Range/Units 12:13 17:49 23:55 POC ABG pH (7.35-7.45) Potassium (3.6-5.0) mmol/L Chloride (98-107) mmol/L BUN (7-17) mg/dL Creatinine (0.7-1.2) mg/dL Glucose (65-100) mg/dL POC Glucose 133 H 159 H 136 H (70-105) 03/09/19 03/09/19 03/09/19 Range/Units 05:35 05:54 08:00 POC ABG pH 7.160 L (7.35-7.45) Potassium 5.6 H (3.6-5.0) mmol/L Chloride 95.5 L (98-107) mmol/L BUN 98 H (7-17) mg/dL Creatinine 2.7 H (0.7-1.2) mg/dL Glucose 143 H (65-100) mg/dL POC Glucose 134 H (70-105) 03/09/19 Range/Units 12:29 POC ABG pH (7.35-7.45) Potassium (3.6-5.0) mmol/L Chloride (98-107) mmol/L BUN (7-17) mg/dL Creatinine (0.7-1.2) mg/dL Glucose (65-100) mg/dL POC Glucose 144 H (70-105)
--- NOTE | 2019-03-09 12:44 | Progress Note ---
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 Obtunded. Anuric and hyperkalemia Medical management of hyperkalemia, use bicarbonate to support her pH, avoid hypoglycemia. Prognosis is grave, cardiopulmonary arrest is imminent Supportive transfusions - Wean vasopressor support for MAP>65, currently on norepinephrine and vasopressin -Volume resuscitation per sepsis protocol -VAP bundle addressed -Aspiration precautions, HOB>40 degrees - Lung protective strategies -Adjust minute ventilation for better acid-base balance -CXR, ABG in am -Assess daily for readiness for weaningSAT, SBT as tolerated -Continue small bowel feeding tube for nutritional support -VTE prophylaxis -Stress ulcer prophylaxis - Accuchecks with glycemic control for SSI (While critically ill target blood glucose of 140-180 mg/dL; avoid hypoglycemia) - mobility protocol for pressure ulcer prevention - Monitor hemodynamics closely -Monitor electrolyte profile closely and replete as indicated -Chronic home medications, resume as clinically indicated -Mercado catheter in this critically ill patient, with poor urine output, requiring accurate intake and output monitoring and acute renal failure with worsening indices -Wound care CONDITION: CRITICAL PROGNOSIS: GRAVE-POOR CODE STATUS: FULL CODE The high probability of a clinically significant, sudden or life-threatening deterioration of the [respiratory, cardiovascular, renal, hepatobiliary] system(s) required my full and direct attention, intervention and personal dorinda ng. The aggregate critical care time was [35] minutes without overlap. Time includes spent on; [x] Data Review and interpretation [x] Patient assessment and monitoring of vital signs [x] Documentation [x] Medication orders and management Subjective Date of service: 03/09/19 Principal diagnosis: Ac. hypoxemic resp failure; Sev Sepsis; R. pleural effusion; Met. breast CA Interval history: Patient is seen today for: Acute hypoxemic-hypercapnic respiratory failure; severe Sepsis with septic shock,HAP; ARDS; Right pleural effusion s/p thoracentesis; Metastatic breast cancer; Hypernatremia; Poor medical compliance; Obesity Seen and examined at bedside; 24hour events reviewed; nursing and respiratory care staff consulted; overnight events discussed; Remains critically ill on mechanical ventilatory support; on vasopressor support; on fentanyl at 3mcg, on SAT was restless but not purposeful; LIJ to CVP, worsening renal function Remains on norepinephrine at 6mcg and fixed dose vasopressin. Worsening acidosis, Cultures as negative so far Objective Vital Signs - 12hr 03/09/19 03/09/19 03/09/19 00:45 01:00 01:15 Temperature Pulse Rate 107 H 106 H 106 H Pulse Rate [ Anterior Throughout] Pulse Rate [ Apical] Pulse Rate [ From Monitor] Pulse Rate [ Left Dorsalis Pedis] Pulse Rate [ Radial] Pulse Rate [ Right] Respiratory 11 L 17 15 Rate Respiratory Rate [Anterior Throughout] Blood Pressure 103/52 109/55 102/56 O2 Sat by Pulse 97 97 96 Oximetry 03/09/19 03/09/19 03/09/19 01:30 01:45 02:00 Temperature Pulse Rate 107 H 106 H 106 H Pulse Rate [ Anterior Throughout] Pulse Rate [ Apical] Pulse Rate [ From Monitor] Pulse Rate [ Left Dorsalis Pedis] Pulse Rate [ Radial] Pulse Rate [ Right] Respiratory 22 16 16 Rate Respiratory Rate [Anterior Throughout] Blood Pressure 102/56 90/54 81/54 O2 Sat by Pulse 97 97 96 Oximetry 03/09/19 03/09/19 03/09/19 02:15 02:30 02:45 Temperature Pulse Rate 105 H 103 H 107 H Pulse Rate [ Anterior Throughout] Pulse Rate [ Apical] Pulse Rate [ From Monitor] Pulse Rate [ Left Dorsalis Pedis] Pulse Rate [ Radial] Pulse Rate [ Right] Respiratory 15 24 17 Rate Respiratory Rate [Anterior Throughout] Blood Pressure 102/57 94/58 86/59 O2 Sat by Pulse 97 91 93 Oximetry 03/09/19 03/09/19 03/09/19 03:00 03:15 03:30 Temperature Pulse Rate 104 H 107 H 106 H Pulse Rate [ Anterior Throughout] Pulse Rate [ Apical] Pulse Rate [ From Monitor] Pulse Rate [ Left Dorsalis Pedis] Pulse Rate [ Radial] Pulse Rate [ Right] Respiratory 21 13 18 Rate Respiratory Rate [Anterior Throughout] Blood Pressure 88/55 84/60 103/55 O2 Sat by Pulse 93 94 93 Oximetry 03/09/19 03/09/19 03/09/19 03:45 04:00 04:11 Temperature 98.9 F Pulse Rate 105 H 103 H 105 H Pulse Rate [ Anterior Throughout] Pulse Rate [ Apical] Pulse Rate [ From Monitor] Pulse Rate [ Left Dorsalis Pedis] Pulse Rate [ Radial] Pulse Rate [ Right] Respiratory 14 20 Rate Respiratory Rate [Anterior Throughout] Blood Pressure 106/56 102/55 106/56 O2 Sat by Pulse 94 93 94 Oximetry 03/09/19 03/09/19 03/09/19 04:15 04:30 04:45 Temperature Pulse Rate 107 H 106 H 103 H Pulse Rate [ Anterior Throughout] Pulse Rate [ Apical] Pulse Rate [ From Monitor] Pulse Rate [ Left Dorsalis Pedis] Pulse Rate [ Radial] Pulse Rate [ Right] Respiratory 10 L 22 11 L Rate Respiratory Rate [Anterior Throughout] Blood Pressure 108/60 94/53 86/40 O2 Sat by Pulse 95 97 97 Oximetry 03/09/19 03/09/19 03/09/19 05:00 05:15 05:30 Temperature Pulse Rate 103 H 104 H 104 H Pulse Rate [ Anterior Throughout] Pulse Rate [ Apical] Pulse Rate [ From Monitor] Pulse Rate [ Left Dorsalis Pedis] Pulse Rate [ Radial] Pulse Rate [ Right] Respiratory 12 18 17 Rate Respiratory Rate [Anterior Throughout] Blood Pressure 87/44 78/43 78/41 O2 Sat by Pulse 97 96 98 Oximetry 03/09/19 03/09/19 03/09/19 05:45 06:00 06:15 Temperature Pulse Rate 105 H 106 H 107 H Pulse Rate [ Anterior Throughout] Pulse Rate [ Apical] Pulse Rate [ From Monitor] Pulse Rate [ Left Dorsalis Pedis] Pulse Rate [ Radial] Pulse Rate [ Right] Respiratory 10 L 20 16 Rate Respiratory Rate [Anterior Throughout] Blood Pressure 78/42 92/48 102/49 O2 Sat by Pulse 98 98 98 Oximetry 03/09/19 03/09/19 03/09/19 06:30 06:45 07:00 Temperature Pulse Rate 107 H 108 H 108 H Pulse Rate [ Anterior Throughout] Pulse Rate [ Apical] Pulse Rate [ From Monitor] Pulse Rate [ Left Dorsalis Pedis] Pulse Rate [ Radial] Pulse Rate [ Right] Respiratory 18 12 13 Rate Respiratory Rate [Anterior Throughout] Blood Pressure 92/48 100/50 100/49 O2 Sat by Pulse 97 96 96 Oximetry 03/09/19 03/09/19 03/09/19 07:15 07:30 07:45 Temperature Pulse Rate 105 H 111 H 109 H Pulse Rate [ Anterior Throughout] Pulse Rate [ Apical] Pulse Rate [ From Monitor] Pulse Rate [ Left Dorsalis Pedis] Pulse Rate [ Radial] Pulse Rate [ Right] Respiratory 13 13 19 Rate Respiratory Rate [Anterior Throughout] Blood Pressure 101/49 111/59 118/55 O2 Sat by Pulse 96 97 87 Oximetry 03/09/19 03/09/19 03/09/19 08:00 08:11 08:15 Temperature 98.0 F Pulse Rate 109 H 105 H 105 H Pulse Rate [ Anterior Throughout] Pulse Rate [ 108 H Apical] Pulse Rate [ 108 H From Monitor] Pulse Rate [ 108 H Left Dorsalis Pedis] Pulse Rate [ 108 H Radial] Pulse Rate [ 108 H Right] Respiratory 17 20 Rate Respiratory Rate [Anterior Throughout] Blood Pressure 116/59 116/59 110/60 O2 Sat by Pulse 94 93 93 Oximetry 03/09/19 03/09/19 03/09/19 08:23 08:30 08:45 Temperature Pulse Rate 110 H 105 H Pulse Rate [ 106 H Anterior Throughout] Pulse Rate [ Apical] Pulse Rate [ From Monitor] Pulse Rate [ Left Dorsalis Pedis] Pulse Rate [ Radial] Pulse Rate [ Right] Respiratory 8 L 17 Rate Respiratory 36 H Rate [Anterior Throughout] Blood Pressure 122/58 111/53 O2 Sat by Pulse 96 93 Oximetry 03/09/19 03/09/19 03/09/19 09:00 09:15 09:30 Temperature Pulse Rate 103 H 106 H 103 H Pulse Rate [ Anterior Throughout] Pulse Rate [ Apical] Pulse Rate [ From Monitor] Pulse Rate [ Left Dorsalis Pedis] Pulse Rate [ Radial] Pulse Rate [ Right] Respiratory 14 13 11 L Rate Respiratory Rate [Anterior Throughout] Blood Pressure 120/54 115/57 114/54 O2 Sat by Pulse 95 96 Oximetry 03/09/19 03/09/19 03/09/19 09:45 10:00 10:15 Temperature Pulse Rate 107 H 107 H 106 H Pulse Rate [ Anterior Throughout] Pulse Rate [ Apical] Pulse Rate [ From Monitor] Pulse Rate [ Left Dorsalis Pedis] Pulse Rate [ Radial] Pulse Rate [ Right] Respiratory 17 20 18 Rate Respiratory Rate [Anterior Throughout] Blood Pressure 113/57 113/55 107/60 O2 Sat by Pulse 93 96 Oximetry 11/17/19 11/17/19 11/17/19 10:30 10:45 11:00 Temperature Pulse Rate 103 H 101 H 99 H Pulse Rate [ Anterior Throughout] Pulse Rate [ Apical] Pulse Rate [ From Monitor] Pulse Rate [ Left Dorsalis Pedis] Pulse Rate [ Radial] Pulse Rate [ Right] Respiratory 34 H 27 H 21 Rate Respiratory Rate [Anterior Throughout] Blood Pressure 103/52 106/54 109/56 O2 Sat by Pulse 95 90 Oximetry 03/09/19 03/09/19 03/09/19 11:15 11:30 11:45 Temperature Pulse Rate 101 H 95 H 95 H Pulse Rate [ Anterior Throughout] Pulse Rate [ Apical] Pulse Rate [ From Monitor] Pulse Rate [ Left Dorsalis Pedis] Pulse Rate [ Radial] Pulse Rate [ Right] Respiratory 22 17 15 Rate Respiratory Rate [Anterior Throughout] Blood Pressure 108/54 109/56 120/58 O2 Sat by Pulse 91 89 92 Oximetry 03/09/19 03/09/19 12:00 12:21 Temperature Pulse Rate 93 H 88 Pulse Rate [ Anterior Throughout] Pulse Rate [ 86 Apical] Pulse Rate [ 108 H From Monitor] Pulse Rate [ 86 Left Dorsalis Pedis] Pulse Rate [ 86 Radial] Pulse Rate [ 86 Right] Respiratory 18 Rate Respiratory Rate [Anterior Throughout] Blood Pressure 126/56 114/66 O2 Sat by Pulse 92 93 Oximetry Constitutional: lethargic, other (middle aged obese AAF with mildly increased respiratory distress on MVS) Eyes: icteric ENT: other (Small bowel feeding tube in place, 7.[address] 23cm at the lip) Neck: supple, no lymphadenopathy, no JVD, other (Left IJ CVC; large neck circumference) Effort: mildly labored Ascultation: Bilateral: diminished breath sounds, rales Percussion: Bilateral: not dull Cardiovascular: regular rate and rhythm, other (Tachycardia S1,S2, no murmurs. Anterior chest wall dressing) Gastrointestinal: normoactive bowel sounds, soft, non-tender, non-distended Integumentary: other (Chest wall wound) Extremities: no cyanosis, pulses normal, no ischemia or petechiae, edema, other (edema) Neurologic: pupils equal and round, other (sedated, unable to assess) Psychiatric: other (unable to assess re: AMS) CBC and BMP: 03/12/19 05:30 03/14/19 Unknown ABG, PT/INR, D-dimer: ABG POC ABG pH 7.160 (7.35-7.45) L 03/09/19 05:54 ABG pH 7.335 pH Units (7.350-7.450) L 03/03/19 05:25 ABG pCO2 61.3 mm Hg 03/03/19 05:25 POC ABG pO2 89 (80-105) 03/09/19 05:54 ABG pO2 89.2 mm Hg (80.0-90.0) 03/03/19 05:25 POC ABG HCO3 34.6 (22-26 mml/L) 03/09/19 05:54 POC ABG Total CO2 37 (23-27mmol/L) 03/09/19 05:54 POC ABG O2 Sat 93 03/09/19 05:54 ABG O2 Saturation 97.0 % (95.0-99.0) 03/03/19 05:25 PT/INR, D-dimer PT 14.8 Sec. (12.2-14.9) 02/27/19 12:38 INR 1.17 (0.87-1.13) H 02/27/19 12:38 D-Dimer 5778.32 ng/mlDDU (0-234) H 02/27/19 12:38 Abnormal lab findings: Abnormal Labs 02/27/19 02/27/19 02/27/19 11:33 11:33 11:33 WBC 18.6 H RBC 3.60 L Hgb 8.7 L Hct 28.8 L MCH 24 L MCHC RDW 23.0 H Plt Count 507 H Lymph % (Auto) 12.9 L Dare # 1.3 H Seg Neutrophils % 79.7 H Seg Neuts % (Manual) Lymphocytes % (Manual) Nucleated RBC % Seg Neutrophils # 14.8 H Seg Neutrophils # Man Lymphocytes # (Manual) Monocytes # (Manual) INR D-Dimer POC ABG pH ABG pH POC ABG pCO2 POC ABG pO2 ABG pO2 ABG HCO3 ABG O2 Saturation ABG Base Excess ABG Hemoglobin Oxyhemoglobin Sodium Potassium Chloride 96.8 L Carbon Dioxide BUN 28 H Creatinine 0.5 L Glucose 169 H POC Glucose Lactic Acid 3.40 H* Phosphorus Magnesium AST ALT Alkaline Phosphatase Ammonia Total Creatine Kinase 197 H CK-MB (CK-2) 4.1 H NT-Pro-B Natriuret Pep Total Protein Albumin Free T4 Urine Creatinine Urine Chloride Crossmatch 02/27/19 02/27/19 02/27/19 11:33 11:45 11:47 WBC RBC Hgb Hct MCH MCHC RDW Plt Count Lymph % (Auto) Dare # Seg Neutrophils % Seg Neuts % (Manual) Lymphocytes % (Manual) Nucleated RBC % Seg Neutrophils # Seg Neutrophils # Man Lymphocytes # (Manual) Monocytes # (Manual) INR D-Dimer POC ABG pH ABG pH POC ABG pCO2 POC ABG pO2 ABG pO2 ABG HCO3 ABG O2 Saturation ABG Base Excess ABG Hemoglobin Oxyhemoglobin Sodium Potassium Chloride Carbon Dioxide BUN Creatinine Glucose POC Glucose 169 H Lactic Acid Phosphorus Magnesium AST 95 H ALT Alkaline Phosphatase 130 H Ammonia Total Creatine Kinase CK-MB (CK-2) NT-Pro-B Natriuret Pep Total Protein Albumin 2.9 L Free T4 Urine Creatinine Urine Chloride Crossmatch See Detail 02/27/19 02/27/19 02/27/19 12:30 12:38 14:08 WBC RBC Hgb Hct MCH MCHC RDW Plt Count Lymph % (Auto) Dare # Seg Neutrophils % Seg Neuts % (Manual) Lymphocytes % (Manual) Nucleated RBC % Seg Neutrophils # Seg Neutrophils # Man Lymphocytes # (Manual) Monocytes # (Manual) INR 1.17 H D-Dimer 5778.32 H POC ABG pH 7.326 L ABG pH POC ABG pCO2 POC ABG pO2 129 H ABG pO2 ABG HCO3 ABG O2 Saturation ABG Base Excess ABG Hemoglobin Oxyhemoglobin Sodium Potassium Chloride Carbon Dioxide BUN Creatinine Glucose POC Glucose Lactic Acid 3.00 H* Phosphorus Magnesium AST ALT Alkaline Phosphatase Ammonia Total Creatine Kinase CK-MB (CK-2) NT-Pro-B Natriuret Pep Total Protein Albumin Free T4 Urine Creatinine Urine Chloride Crossmatch 02/27/19 02/27/19 02/27/19 15:03 16:06 18:08 WBC RBC Hgb Hct MCH MCHC RDW Plt Count Lymph % (Auto) Dare # Seg Neutrophils % Seg Neuts % (Manual) Lymphocytes % (Manual) Nucleated RBC % Seg Neutrophils # Seg Neutrophils # Man Lymphocytes # (Manual) Monocytes # (Manual) INR D-Dimer POC ABG pH ABG pH POC ABG pCO2 68.8 H POC ABG pO2 225 H ABG pO2 ABG HCO3 ABG O2 Saturation ABG Base Excess ABG Hemoglobin Oxyhemoglobin Sodium Potassium Chloride Carbon Dioxide BUN Creatinine Glucose POC Glucose Lactic Acid 3.20 H* 2.80 H* Phosphorus Magnesium AST ALT Alkaline Phosphatase Ammonia Total Creatine Kinase CK-MB (CK-2) NT-Pro-B Natriuret Pep Total Protein Albumin Free T4 Urine Creatinine Urine Chloride Crossmatch 02/27/19 02/28/19 02/28/19 18:12 10:00 10:00 WBC 13.3 H RBC 3.39 L Hgb 8.1 L Hct 26.7 L MCH 24 L MCHC RDW 22.5 H Plt Count Lymph % (Auto) Dare # Seg Neutrophils % Seg Neuts % (Manual) Lymphocytes % (Manual) Nucleated RBC % Seg Neutrophils # Seg Neutrophils # Man Lymphocytes # (Manual) Monocytes # (Manual) INR D-Dimer POC ABG pH ABG pH POC ABG pCO2 POC ABG pO2 ABG pO2 ABG HCO3 ABG O2 Saturation ABG Base Excess ABG Hemoglobin Oxyhemoglobin Sodium 146 H Potassium Chloride Carbon Dioxide 32 H BUN 32 H Creatinine 0.5 L Glucose 111 H POC Glucose Lactic Acid 2.30 H* Phosphorus Magnesium AST 93 H ALT Alkaline Phosphatase Ammonia Total Creatine Kinase CK-MB (CK-2) NT-Pro-B Natriuret Pep Total Protein Albumin 2.6 L Free T4 Urine Creatinine Urine Chloride Crossmatch 02/28/19 03/01/19 03/01/19 10:26 00:05 05:00 WBC 20.2 H RBC Hgb 9.0 L Hct 29.9 L MCH 24 L MCHC RDW 22.8 H Plt Count 498 H Lymph % (Auto) Dare # Seg Neutrophils % Seg Neuts % (Manual) Lymphocytes % (Manual) Nucleated RBC % Seg Neutrophils # Seg Neutrophils # Man Lymphocytes # (Manual) Monocytes # (Manual) INR D-Dimer POC ABG pH ABG pH POC ABG pCO2 54.2 H POC ABG pO2 ABG pO2 ABG HCO3 ABG O2 Saturation ABG Base Excess ABG Hemoglobin Oxyhemoglobin Sodium Potassium Chloride Carbon Dioxide BUN Creatinine Glucose POC Glucose 167 H Lactic Acid Phosphorus Magnesium AST ALT Alkaline Phosphatase Ammonia Total Creatine Kinase CK-MB (CK-2) NT-Pro-B Natriuret Pep Total Protein Albumin Free T4 Urine Creatinine Urine Chloride Crossmatch 03/01/19 03/01/19 03/01/19 05:00 12:36 17:31 WBC RBC Hgb Hct MCH MCHC RDW Plt Count Lymph % (Auto) Dare # Seg Neutrophils % Seg Neuts % (Manual) Lymphocytes % (Manual) Nucleated RBC % Seg Neutrophils # Seg Neutrophils # Man Lymphocytes # (Manual) Monocytes # (Manual) INR D-Dimer POC ABG pH ABG pH POC ABG pCO2 POC ABG pO2 ABG pO2 ABG HCO3 ABG O2 Saturation ABG Base Excess ABG Hemoglobin Oxyhemoglobin Sodium 148 H Potassium Chloride Carbon Dioxide 37 H BUN 43 H Creatinine 0.6 L Glucose 150 H POC Glucose 140 H 157 H Lactic Acid Phosphorus Magnesium AST ALT Alkaline Phosphatase Ammonia Total Creatine Kinase CK-MB (CK-2) NT-Pro-B Natriuret Pep Total Protein Albumin Free T4 Urine Creatinine Urine Chloride Crossmatch 03/02/19 03/02/19 03/02/19 04:29 04:32 05:27 WBC RBC Hgb Hct MCH MCHC RDW Plt Count Lymph % (Auto) Dare # Seg Neutrophils % Seg Neuts % (Manual) Lymphocytes % (Manual) Nucleated RBC % Seg Neutrophils # Seg Neutrophils # Man Lymphocytes # (Manual) Monocytes # (Manual) INR D-Dimer POC ABG pH 7.056 L ABG pH POC ABG pCO2 POC ABG pO2 64 L ABG pO2 ABG HCO3 ABG O2 Saturation ABG Base Excess ABG Hemoglobin Oxyhemoglobin Sodium Potassium Chloride Carbon Dioxide BUN Creatinine Glucose POC Glucose 161 H Lactic Acid Phosphorus Magnesium AST ALT Alkaline Phosphatase Ammonia Total Creatine Kinase CK-MB (CK-2) NT-Pro-B Natriuret Pep 2143 H Total Protein Albumin Free T4 Urine Creatinine Urine Chloride Crossmatch 03/02/19 03/02/19 03/02/19 05:27 05:27 05:27 WBC 17.8 H RBC 3.50 L Hgb 8.5 L Hct 29.5 L MCH 24 L MCHC 29 L RDW 21.9 H Plt Count Lymph % (Auto) Dare # Seg Neutrophils % Seg Neuts % (Manual) 94.0 H Lymphocytes % (Manual) 2.0 L Nucleated RBC % 1.0 H Seg Neutrophils # Seg Neutrophils # Man 16.7 H Lymphocytes # (Manual) 0.4 L Monocytes # (Manual) INR D-Dimer POC ABG pH ABG pH POC ABG pCO2 POC ABG pO2 ABG pO2 ABG HCO3 ABG O2 Saturation ABG Base Excess ABG Hemoglobin Oxyhemoglobin Sodium 156 H D Potassium 5.4 H Chloride 108.6 H Carbon Dioxide 39 H BUN 60 H Creatinine Glucose 159 H POC Glucose Lactic Acid Phosphorus Magnesium AST 164 H ALT Alkaline Phosphatase 164 H Ammonia 81.0 H Total Creatine Kinase CK-MB (CK-2) NT-Pro-B Natriuret Pep Total Protein 6.2 L Albumin 2.2 L Free T4 Urine Creatinine Urine Chloride Crossmatch 03/02/19 03/02/19 03/02/19 05:27 06:04 10:56 WBC RBC Hgb Hct MCH MCHC RDW Plt Count Lymph % (Auto) Dare # Seg Neutrophils % Seg Neuts % (Manual) Lymphocytes % (Manual) Nucleated RBC % Seg Neutrophils # Seg Neutrophils # Man Lymphocytes # (Manual) Monocytes # (Manual) INR D-Dimer POC ABG pH ABG pH 7.239 L POC ABG pCO2 POC ABG pO2 ABG pO2 60.0 L 103.9 H ABG HCO3 36.6 H 32.9 H ABG O2 Saturation 88.3 L ABG Base Excess 7.3 H 7.7 H ABG Hemoglobin 9.1 L 9.0 L Oxyhemoglobin 86.3 L Sodium Potassium Chloride Carbon Dioxide BUN Creatinine Glucose POC Glucose Lactic Acid Phosphorus 6.90 H Magnesium 2.80 H AST ALT Alkaline Phosphatase Ammonia Total Creatine Kinase CK-MB (CK-2) NT-Pro-B Natriuret Pep Total Protein Albumin Free T4 Urine Creatinine Urine Chloride Crossmatch 03/02/19 03/02/19 03/02/19 13:58 23:40 Unknown WBC RBC Hgb Hct MCH MCHC RDW Plt Count Lymph % (Auto) Dare # Seg Neutrophils % Seg Neuts % (Manual) Lymphocytes % (Manual) Nucleated RBC % Seg Neutrophils # Seg Neutrophils # Man Lymphocytes # (Manual) Monocytes # (Manual) INR D-Dimer POC ABG pH ABG pH POC ABG pCO2 POC ABG pO2 ABG pO2 ABG HCO3 ABG O2 Saturation ABG Base Excess ABG Hemoglobin Oxyhemoglobin Sodium Potassium Chloride Carbon Dioxide BUN Creatinine Glucose POC Glucose 127 H 161 H Lactic Acid Phosphorus Magnesium AST ALT Alkaline Phosphatase Ammonia Total Creatine Kinase CK-MB (CK-2) NT-Pro-B Natriuret Pep Total Protein Albumin Free T4 Urine Creatinine 218.2 H Urine Chloride Crossmatch 03/03/19 03/03/19 03/03/19 05:00 05:00 05:25 WBC 17.8 H RBC 3.62 L Hgb 8.8 L Hct 28.9 L MCH 24 L MCHC RDW 22.8 H Plt Count Lymph % (Auto) Dare # Seg Neutrophils % Seg Neuts % (Manual) 96.0 H Lymphocytes % (Manual) 1.0 L Nucleated RBC % 3.0 H Seg Neutrophils # Seg Neutrophils # Man 17.1 H Lymphocytes # (Manual) 0.2 L Monocytes # (Manual) INR D-Dimer POC ABG pH ABG pH 7.335 L POC ABG pCO2 POC ABG pO2 ABG pO2 ABG HCO3 32.0 H ABG O2 Saturation ABG Base Excess 5.2 H ABG Hemoglobin 8.2 L Oxyhemoglobin 94.9 L Sodium 160 H Potassium 3.5 L D Chloride 113.7 H Carbon Dioxide BUN 90 H Creatinine 1.7 H D Glucose 149 H POC Glucose Lactic Acid Phosphorus Magnesium 2.90 H AST 624 H ALT 211 H Alkaline Phosphatase 416 H Ammonia Total Creatine Kinase CK-MB (CK-2) NT-Pro-B Natriuret Pep Total Protein 6.2 L Albumin 2.2 L Free T4 Urine Creatinine Urine Chloride Crossmatch 03/03/19 03/03/19 03/03/19 05:41 12:27 15:54 WBC RBC Hgb Hct MCH MCHC RDW Plt Count Lymph % (Auto) Dare # Seg Neutrophils % Seg Neuts % (Manual) Lymphocytes % (Manual) Nucleated RBC % Seg Neutrophils # Seg Neutrophils # Man Lymphocytes # (Manual) Monocytes # (Manual) INR D-Dimer POC ABG pH ABG pH POC ABG pCO2 POC ABG pO2 ABG pO2 ABG HCO3 ABG O2 Saturation ABG Base Excess ABG Hemoglobin Oxyhemoglobin Sodium Potassium Chloride Carbon Dioxide BUN Creatinine Glucose POC Glucose 150 H 167 H Lactic Acid Phosphorus Magnesium AST ALT Alkaline Phosphatase Ammonia Total Creatine Kinase CK-MB (CK-2) NT-Pro-B Natriuret Pep Total Protein Albumin Free T4 0.50 L Urine Creatinine Urine Chloride Crossmatch 03/03/19 03/03/19 03/04/19 17:32 23:57 04:11 WBC RBC Hgb Hct MCH MCHC RDW Plt Count Lymph % (Auto) Dare # Seg Neutrophils % Seg Neuts % (Manual) Lymphocytes % (Manual) Nucleated RBC % Seg Neutrophils # Seg Neutrophils # Man Lymphocytes # (Manual) Monocytes # (Manual) INR D-Dimer POC ABG pH 7.332 L ABG pH POC ABG pCO2 57.1 H POC ABG pO2 ABG pO2 ABG HCO3 ABG O2 Saturation ABG Base Excess ABG Hemoglobin Oxyhemoglobin Sodium Potassium Chloride Carbon Dioxide BUN Creatinine Glucose POC Glucose 165 H 202 H Lactic Acid Phosphorus Magnesium AST ALT Alkaline Phosphatase Ammonia Total Creatine Kinase CK-MB (CK-2) NT-Pro-B Natriuret Pep Total Protein Albumin Free T4 Urine Creatinine Urine Chloride Crossmatch 03/04/19 03/04/19 03/04/19 04:38 04:38 05:30 WBC 23.0 H RBC 3.36 L Hgb 7.9 L Hct 26.6 L MCH 24 L MCHC RDW 23.1 H Plt Count Lymph % (Auto) Dare # Seg Neutrophils % Seg Neuts % (Manual) 98.0 H Lymphocytes % (Manual) 0 L Nucleated RBC % Seg Neutrophils # Seg Neutrophils # Man 22.5 H Lymphocytes # (Manual) 0.0 L Monocytes # (Manual) INR D-Dimer POC ABG pH ABG pH POC ABG pCO2 POC ABG pO2 ABG pO2 ABG HCO3 ABG O2 Saturation ABG Base Excess ABG Hemoglobin Oxyhemoglobin Sodium 151 H D Potassium Chloride 110.4 H Carbon Dioxide BUN 103 H Creatinine 2.0 H Glucose 177 H POC Glucose 172 H Lactic Acid Phosphorus Magnesium AST 244 H ALT 159 H Alkaline Phosphatase 365 H Ammonia Total Creatine Kinase CK-MB (CK-2) NT-Pro-B Natriuret Pep Total Protein 5.9 L Albumin 2.1 L Free T4 Urine Creatinine Urine Chloride Crossmatch 03/04/19 03/04/19 03/04/19 12:10 12:39 18:11 WBC RBC Hgb Hct MCH MCHC RDW Plt Count Lymph % (Auto) Dare # Seg Neutrophils % Seg Neuts % (Manual) Lymphocytes % (Manual) Nucleated RBC % Seg Neutrophils # Seg Neutrophils # Man Lymphocytes # (Manual) Monocytes # (Manual) INR D-Dimer POC ABG pH ABG pH POC ABG pCO2 POC ABG pO2 ABG pO2 ABG HCO3 ABG O2 Saturation ABG Base Excess ABG Hemoglobin Oxyhemoglobin Sodium Potassium Chloride Carbon Dioxide BUN Creatinine Glucose POC Glucose 226 H 173 H Lactic Acid Phosphorus Magnesium AST ALT Alkaline Phosphatase Ammonia Total Creatine Kinase CK-MB (CK-2) NT-Pro-B Natriuret Pep Total Protein Albumin Free T4 Urine Creatinine 185.9 H Urine Chloride 10.2 L Crossmatch 03/04/19 03/05/19 03/05/19 23:24 04:16 04:28 WBC 23.8 H RBC 3.08 L Hgb 7.5 L Hct 25.0 L MCH 24 L MCHC RDW 23.0 H Plt Count Lymph % (Auto) Dare # Seg Neutrophils % Seg Neuts % (Manual) 96.0 H Lymphocytes % (Manual) 3.0 L Nucleated RBC % 1.0 H Seg Neutrophils # Seg Neutrophils # Man 22.8 H Lymphocytes # (Manual) 0.7 L Monocytes # (Manual) INR D-Dimer POC ABG pH 7.274 L ABG pH POC ABG pCO2 59.7 H POC ABG pO2 107 H ABG pO2 ABG HCO3 ABG O2 Saturation ABG Base Excess ABG Hemoglobin Oxyhemoglobin Sodium Potassium Chloride Carbon Dioxide BUN Creatinine Glucose POC Glucose 184 H Lactic Acid Phosphorus Magnesium AST ALT Alkaline Phosphatase Ammonia Total Creatine Kinase CK-MB (CK-2) NT-Pro-B Natriuret Pep Total Protein Albumin Free T4 Urine Creatinine Urine Chloride Crossmatch 03/05/19 03/05/19 03/05/19 04:28 04:28 05:29 WBC RBC Hgb Hct MCH MCHC RDW Plt Count Lymph % (Auto) Dare # Seg Neutrophils % Seg Neuts % (Manual) Lymphocytes % (Manual) Nucleated RBC % Seg Neutrophils # Seg Neutrophils # Man Lymphocytes # (Manual) Monocytes # (Manual) INR D-Dimer POC ABG pH ABG pH POC ABG pCO2 POC ABG pO2 ABG pO2 ABG HCO3 ABG O2 Saturation ABG Base Excess ABG Hemoglobin Oxyhemoglobin Sodium 147 H Potassium Chloride 107.9 H Carbon Dioxide BUN 112 H Creatinine 2.3 H Glucose 153 H POC Glucose 147 H Lactic Acid Phosphorus Magnesium AST 188 H ALT 138 H Alkaline Phosphatase 384 H Ammonia 71.0 H Total Creatine Kinase CK-MB (CK-2) NT-Pro-B Natriuret Pep Total Protein 6.0 L Albumin 2.2 L Free T4 Urine Creatinine Urine Chloride Crossmatch 03/05/19 03/05/19 03/05/19 12:00 17:44 23:48 WBC RBC Hgb Hct MCH MCHC RDW Plt Count Lymph % (Auto) Dare # Seg Neutrophils % Seg Neuts % (Manual) Lymphocytes % (Manual) Nucleated RBC % Seg Neutrophils # Seg Neutrophils # Man Lymphocytes # (Manual) Monocytes # (Manual) INR D-Dimer POC ABG pH ABG pH POC ABG pCO2 POC ABG pO2 ABG pO2 ABG HCO3 ABG O2 Saturation ABG Base Excess ABG Hemoglobin Oxyhemoglobin Sodium Potassium Chloride Carbon Dioxide BUN Creatinine Glucose POC Glucose 181 H 111 H 120 H Lactic Acid Phosphorus Magnesium AST ALT Alkaline Phosphatase Ammonia Total Creatine Kinase CK-MB (CK-2) NT-Pro-B Natriuret Pep Total Protein Albumin Free T4 Urine Creatinine Urine Chloride Crossmatch 03/06/19 03/06/19 03/06/19 04:55 04:55 05:19 WBC 26.5 H RBC 3.28 L Hgb 7.7 L Hct 26.4 L MCH 24 L MCHC 29 L RDW 23.0 H Plt Count Lymph % (Auto) Dare # Seg Neutrophils % Seg Neuts % (Manual) 98.0 H Lymphocytes % (Manual) 2.0 L Nucleated RBC % 2.0 H Seg Neutrophils # Seg Neutrophils # Man 26.0 H Lymphocytes # (Manual) 0.5 L Monocytes # (Manual) INR D-Dimer POC ABG pH 7.248 L ABG pH POC ABG pCO2 65.9 H POC ABG pO2 79 L ABG pO2 ABG HCO3 ABG O2 Saturation ABG Base Excess ABG Hemoglobin Oxyhemoglobin Sodium 147 H Potassium Chloride Carbon Dioxide BUN 132 H Creatinine 2.6 H Glucose 128 H POC Glucose Lactic Acid Phosphorus Magnesium AST 207 H ALT 144 H Alkaline Phosphatase 529 H Ammonia Total Creatine Kinase CK-MB (CK-2) NT-Pro-B Natriuret Pep Total Protein 6.1 L Albumin 2.4 L Free T4 Urine Creatinine Urine Chloride Crossmatch 03/06/19 03/06/19 03/06/19 05:35 13:06 15:20 WBC RBC Hgb Hct MCH MCHC RDW Plt Count Lymph % (Auto) Dare # Seg Neutrophils % Seg Neuts % (Manual) Lymphocytes % (Manual) Nucleated RBC % Seg Neutrophils # Seg Neutrophils # Man Lymphocytes # (Manual) Monocytes # (Manual) INR D-Dimer POC ABG pH 7.263 L ABG pH POC ABG pCO2 64.7 H POC ABG pO2 67 L ABG pO2 ABG HCO3 ABG O2 Saturation ABG Base Excess ABG Hemoglobin Oxyhemoglobin Sodium Potassium Chloride Carbon Dioxide BUN Creatinine Glucose POC Glucose 113 H 123 H Lactic Acid Phosphorus Magnesium AST ALT Alkaline Phosphatase Ammonia Total Creatine Kinase CK-MB (CK-2) NT-Pro-B Natriuret Pep Total Protein Albumin Free T4 Urine Creatinine Urine Chloride Crossmatch 03/06/19 03/06/19 03/07/19 18:41 23:33 04:34 WBC RBC Hgb Hct MCH MCHC RDW Plt Count Lymph % (Auto) Dare # Seg Neutrophils % Seg Neuts % (Manual) Lymphocytes % (Manual) Nucleated RBC % Seg Neutrophils # Seg Neutrophils # Man Lymphocytes # (Manual) Monocytes # (Manual) INR D-Dimer POC ABG pH 7.258 L ABG pH POC ABG pCO2 65.6 H POC ABG pO2 73 L ABG pO2 ABG HCO3 ABG O2 Saturation ABG Base Excess ABG Hemoglobin Oxyhemoglobin Sodium Potassium Chloride Carbon Dioxide BUN Creatinine Glucose POC Glucose 131 H 141 H Lactic Acid Phosphorus Magnesium AST ALT Alkaline Phosphatase Ammonia Total Creatine Kinase CK-MB (CK-2) NT-Pro-B Natriuret Pep Total Protein Albumin Free T4 Urine Creatinine Urine Chloride Crossmatch 03/07/19 03/07/19 03/07/19 05:13 11:47 12:19 WBC RBC Hgb Hct MCH MCHC RDW Plt Count Lymph % (Auto) Dare # Seg Neutrophils % Seg Neuts % (Manual) Lymphocytes % (Manual) Nucleated RBC % Seg Neutrophils # Seg Neutrophils # Man Lymphocytes # (Manual) Monocytes # (Manual) INR D-Dimer POC ABG pH ABG pH POC ABG pCO2 POC ABG pO2 ABG pO2 ABG HCO3 ABG O2 Saturation ABG Base Excess ABG Hemoglobin Oxyhemoglobin Sodium Potassium Chloride Carbon Dioxide BUN Creatinine Glucose POC Glucose 122 H 128 H 132 H Lactic Acid Phosphorus Magnesium AST ALT Alkaline Phosphatase Ammonia Total Creatine Kinase CK-MB (CK-2) NT-Pro-B Natriuret Pep Total Protein Albumin Free T4 Urine Creatinine Urine Chloride Crossmatch 03/07/19 03/07/19 03/07/19 16:19 17:45 23:14 WBC RBC Hgb Hct MCH MCHC RDW Plt Count Lymph % (Auto) Dare # Seg Neutrophils % Seg Neuts % (Manual) Lymphocytes % (Manual) Nucleated RBC % Seg Neutrophils # Seg Neutrophils # Man Lymphocytes # (Manual) Monocytes # (Manual) INR D-Dimer POC ABG pH 7.246 L ABG pH POC ABG pCO2 65.2 H POC ABG pO2 69 L ABG pO2 ABG HCO3 ABG O2 Saturation ABG Base Excess ABG Hemoglobin Oxyhemoglobin Sodium Potassium Chloride Carbon Dioxide BUN Creatinine Glucose POC Glucose 159 H 152 H Lactic Acid Phosphorus Magnesium AST ALT Alkaline Phosphatase Ammonia Total Creatine Kinase CK-MB (CK-2) NT-Pro-B Natriuret Pep Total Protein Albumin Free T4 Urine Creatinine Urine Chloride Crossmatch 03/08/19 03/08/19 03/08/19 04:09 04:51 06:30 WBC 27.8 H RBC 3.35 L Hgb 7.9 L Hct 27.0 L MCH 24 L MCHC 29 L RDW 23.0 H Plt Count Lymph % (Auto) Dare # Seg Neutrophils % Seg Neuts % (Manual) 91.0 H Lymphocytes % (Manual) 4.0 L Nucleated RBC % 5.0 H Seg Neutrophils # Seg Neutrophils # Man 25.3 H Lymphocytes # (Manual) 1.1 L Monocytes # (Manual) 1.1 H INR D-Dimer POC ABG pH 7.155 L ABG pH POC ABG pCO2 POC ABG pO2 79 L ABG pO2 ABG HCO3 ABG O2 Saturation ABG Base Excess ABG Hemoglobin Oxyhemoglobin Sodium Potassium Chloride Carbon Dioxide BUN Creatinine Glucose POC Glucose 153 H Lactic Acid Phosphorus Magnesium AST ALT Alkaline Phosphatase Ammonia Total Creatine Kinase CK-MB (CK-2) NT-Pro-B Natriuret Pep Total Protein Albumin Free T4 Urine Creatinine Urine Chloride Crossmatch 03/08/19 03/08/19 03/08/19 06:30 09:29 12:13 WBC RBC Hgb Hct MCH MCHC RDW Plt Count Lymph % (Auto) Dare # Seg Neutrophils % Seg Neuts % (Manual) Lymphocytes % (Manual) Nucleated RBC % Seg Neutrophils # Seg Neutrophils # Man Lymphocytes # (Manual) Monocytes # (Manual) INR D-Dimer POC ABG pH 7.182 L ABG pH POC ABG pCO2 POC ABG pO2 77 L ABG pO2 ABG HCO3 ABG O2 Saturation ABG Base Excess ABG Hemoglobin Oxyhemoglobin Sodium Potassium 6.5 H* D Chloride Carbon Dioxide BUN 164 H Creatinine 3.3 H Glucose 141 H POC Glucose 133 H Lactic Acid Phosphorus Magnesium AST 543 H ALT 280 H Alkaline Phosphatase 641 H Ammonia Total Creatine Kinase CK-MB (CK-2) NT-Pro-B Natriuret Pep Total Protein 6.2 L Albumin 2.5 L Free T4 Urine Creatinine Urine Chloride Crossmatch 03/08/19 03/08/19 03/09/19 17:49 23:55 05:35 WBC RBC Hgb Hct MCH MCHC RDW Plt Count Lymph % (Auto) Dare # Seg Neutrophils % Seg Neuts % (Manual) Lymphocytes % (Manual) Nucleated RBC % Seg Neutrophils # Seg Neutrophils # Man Lymphocytes # (Manual) Monocytes # (Manual) INR D-Dimer POC ABG pH ABG pH POC ABG pCO2 POC ABG pO2 ABG pO2 ABG HCO3 ABG O2 Saturation ABG Base Excess ABG Hemoglobin Oxyhemoglobin Sodium Potassium Chloride Carbon Dioxide BUN Creatinine Glucose POC Glucose 159 H 136 H 134 H Lactic Acid Phosphorus Magnesium AST ALT Alkaline Phosphatase Ammonia Total Creatine Kinase CK-MB (CK-2) NT-Pro-B Natriuret Pep Total Protein Albumin Free T4 Urine Creatinine Urine Chloride Crossmatch 03/09/19 03/09/19 03/09/19 05:54 08:00 12:29 WBC RBC Hgb Hct MCH MCHC RDW Plt Count Lymph % (Auto) Dare # Seg Neutrophils % Seg Neuts % (Manual) Lymphocytes % (Manual) Nucleated RBC % Seg Neutrophils # Seg Neutrophils # Man Lymphocytes # (Manual) Monocytes # (Manual) INR D-Dimer POC ABG pH 7.160 L ABG pH POC ABG pCO2 POC ABG pO2 ABG pO2 ABG HCO3 ABG O2 Saturation ABG Base Excess ABG Hemoglobin Oxyhemoglobin Sodium Potassium 5.6 H Chloride 95.5 L Carbon Dioxide BUN 98 H Creatinine 2.7 H Glucose 143 H POC Glucose 144 H Lactic Acid Phosphorus Magnesium AST ALT Alkaline Phosphatase Ammonia Total Creatine Kinase CK-MB (CK-2) NT-Pro-B Natriuret Pep Total Protein Albumin Free T4 Urine Creatinine Urine Chloride Crossmatch Allied health notes reviewed: RT
[2019-03-09] MEDS ORDERED: MAGNESIUM CITRATE 300 ML ORAL LIQD PO ONE ×2 (13:00→14:00)
[2019-03-09] MEDS ORDERED: SODIUM CHLORIDE*PRIMING MACHINE ONLY FOR DIALYSIS MC ONE (23:41)
[2019-03-10] MEDS: INSULIN LISPRO 100 UNIT/ML SUB-Q SCH ×4 (00:09→19:00)
[2019-03-10] MEDS: methylPREDNISolone Sod Succinate 40 MG/1 ML INJ IV SCH ×3 (06:31→21:33)
[2019-03-10] MEDS: fentaNYL DRIP Premix 2,000 MCG/100 ML BAG IV SCH ×3 (07:49→21:53)
[2019-03-10] MEDS: SODIUM BICARBONATE 150 MEQ in DEXTROSE 5% IN WATER 1,000 ML IV SCH ×2 (07:49→19:00)
[2019-03-10] MEDS: IPRATROPIUM/ALBUTEROL SULFATE 3 ML AMPUL.NEB IH SCH ×3 (09:00→20:18)
--- NOTE | 2019-03-10 09:04 | Progress Note ---
Assessment and Plan Acute hypoxemic-hypercapnic respiratory failure Sepsis, possible from left lung pneumonia Right pleural effusion Metastatic breast cancer Hypernatremia Poor medical compliance Obesity - resume PCV - increase Peep to 14 cm H2O - reduce FiO2 to 60% - repeat ABG after 2 hours - continue Propofol gtt to improve tolerance / reduce dyssynchrony - bilateral lower extremity Doppler's negative for DVT - continue to transduce CVP's prn acutely - continue fentanyl gtt and titrate for RASS 0 to -1 - continue enteral nutrition at goal rate as tolerated - continue scopolamine patch for secretion control (+ Robinul acuitely) - wean vasopressors for target MAP > 65 mmHg - continue daily SAT's and SBT assessment as tolerated in am - CT head on hold till more stable - continue lawson catheter in this critically ill patient with quickly progressing SELAM - VAP bundle addressed (Aspiration precautions, HOB > 40 degrees) - continue Lung protective strategies - continue to wean FIO2 for O2 sats >90% - continue bronchodilators with pulmonary hygiene per RT - daily CXR's & ABG's acutely - Azotemia per nephrology team - continue to avoid nephrotoxins and adjust all medications fro GFR and CrCL - continue enteral nutrition and advance to goal rate as tolerated (hold for tentative extubation) - continue agitation management / Pain management per CPOT - complete empiric antibiotics for PNA - continue VTE prophylaxis - continue stress ulcer prophylaxis with PPI - continue accuchecks with glycemic control for SSI (While critically ill target blood glucose of 140-180 mg/dL; avoid hypoglycemia) - Continue mobility protocol for pressure ulcer prevention - Continue to monitor hemodynamics closely - Monitor electrolyte profile closely and replete as indicated - continue chronic home medications per attending and as clinically indicated - s/p thoracentesis (1400 ml's drained); follow studies - Wound care per RN & WCT - continue Free water for hypernatremia - continue other care per attending / other consultants ...... care plan discussed with at bedside CONDITION: CRITICAL PROGNOSIS: GUARDED-POOR CODE STATUS: FULL CODE The high probability of a clinically significant, sudden or life-threatening deterioration of the [cardiac, respiratory & neurologic] system(s) required my full and direct attention, intervention and personal management. The aggregate critical care time was [32] minutes without overlap. Time includes spent on; [x] Data Review and interpretation [x] Patient assessment and monitoring of vital signs [x] Documentation [x] Medication orders and management Subjective Date of service: 03/10/19 Principal diagnosis: Ac. hypoxemic resp failure; Sev Sepsis; R. pleural effusion; Met. breast CA Interval history: Patient is seen today for: Acute hypoxemic-hypercapnic respiratory failure; Sepsis, possible from left lung pneumonia; Right pleural effusion; Metastatic breast cancer; Hypernatremia; Poor medical compliance; Obesity Seen and examined at bedside; 24hour events reviewed; nursing and respiratory care staff consulted; no adverse overnight events reported to me; resting in bed; Objective Vital Signs - 12hr 03/09/19 03/09/19 03/09/19 21:15 21:29 21:30 Temperature Pulse Rate 103 H 96 H 103 H Pulse Rate [ Anterior Throughout] Pulse Rate [ From Monitor] Respiratory 35 H 32 H Rate Respiratory Rate [Anterior Throughout] Blood Pressure 115/53 114/49 114/49 O2 Sat by Pulse 100 100 100 Oximetry 03/09/19 03/09/19 03/09/19 21:40 21:45 22:00 Temperature Pulse Rate 93 H 94 H Pulse Rate [ 97 H Anterior Throughout] Pulse Rate [ From Monitor] Respiratory 19 22 Rate Respiratory 35 H Rate [Anterior Throughout] Blood Pressure 115/51 122/51 O2 Sat by Pulse 97 96 Oximetry 03/09/19 03/09/19 03/09/19 22:15 22:30 22:45 Temperature Pulse Rate 93 H 97 H 103 H Pulse Rate [ Anterior Throughout] Pulse Rate [ From Monitor] Respiratory 18 20 32 H Rate Respiratory Rate [Anterior Throughout] Blood Pressure 117/52 126/57 123/61 O2 Sat by Pulse 95 95 94 Oximetry 03/09/19 03/09/19 03/09/19 23:00 23:05 23:15 Temperature Pulse Rate 90 95 H 94 H Pulse Rate [ Anterior Throughout] Pulse Rate [ From Monitor] Respiratory 31 H 26 H 25 H Rate Respiratory Rate [Anterior Throughout] Blood Pressure 133/55 133/55 134/53 O2 Sat by Pulse 93 93 93 Oximetry 03/09/19 03/09/19 03/09/19 23:30 23:45 23:59 Temperature Pulse Rate 91 H 95 H 85 Pulse Rate [ Anterior Throughout] Pulse Rate [ From Monitor] Respiratory 34 H 29 H Rate Respiratory Rate [Anterior Throughout] Blood Pressure 116/55 125/57 125/57 O2 Sat by Pulse 93 93 93 Oximetry 03/10/19 03/10/19 03/10/19 00:00 00:15 00:30 Temperature 98.9 F Pulse Rate 89 100 H 94 H Pulse Rate [ Anterior Throughout] Pulse Rate [ 88 From Monitor] Respiratory 21 25 H 19 Rate Respiratory Rate [Anterior Throughout] Blood Pressure 125/57 114/67 131/60 O2 Sat by Pulse 93 92 92 Oximetry 03/10/19 03/10/19 03/10/19 00:45 01:00 01:15 Temperature Pulse Rate 102 H 94 H 99 H Pulse Rate [ Anterior Throughout] Pulse Rate [ From Monitor] Respiratory 24 22 20 Rate Respiratory Rate [Anterior Throughout] Blood Pressure 118/60 131/60 116/69 O2 Sat by Pulse 92 91 91 Oximetry 03/10/19 03/10/19 03/10/19 01:30 01:45 02:00 Temperature Pulse Rate 100 H 101 H 84 Pulse Rate [ Anterior Throughout] Pulse Rate [ From Monitor] Respiratory 24 18 20 Rate Respiratory Rate [Anterior Throughout] Blood Pressure 101/62 115/59 115/59 O2 Sat by Pulse 91 93 90 Oximetry 03/10/19 03/10/19 03/10/19 02:15 02:30 02:45 Temperature Pulse Rate 82 97 H 100 H Pulse Rate [ Anterior Throughout] Pulse Rate [ From Monitor] Respiratory 20 17 17 Rate Respiratory Rate [Anterior Throughout] Blood Pressure 122/59 110/56 105/54 O2 Sat by Pulse 89 89 91 Oximetry 03/10/19 03/10/19 03/10/19 03:00 03:15 03:30 Temperature Pulse Rate 102 H 98 H 96 H Pulse Rate [ Anterior Throughout] Pulse Rate [ From Monitor] Respiratory 18 19 19 Rate Respiratory Rate [Anterior Throughout] Blood Pressure 99/51 96/52 100/48 O2 Sat by Pulse 92 92 94 Oximetry 03/10/19 03/10/19 03/10/19 03:36 03:45 04:00 Temperature 98.0 F Pulse Rate 94 H 93 H 94 H Pulse Rate [ Anterior Throughout] Pulse Rate [ 98 H From Monitor] Respiratory 19 21 Rate Respiratory Rate [Anterior Throughout] Blood Pressure 100/48 108/46 108/46 O2 Sat by Pulse 93 93 94 Oximetry 03/10/19 03/10/19 03/10/19 04:15 04:30 04:45 Temperature Pulse Rate 95 H 100 H 89 Pulse Rate [ Anterior Throughout] Pulse Rate [ From Monitor] Respiratory 21 23 19 Rate Respiratory Rate [Anterior Throughout] Blood Pressure 107/52 101/40 108/44 O2 Sat by Pulse 93 94 93 Oximetry 03/10/19 03/10/19 03/10/19 05:00 05:16 05:30 Temperature Pulse Rate 96 H 100 H 86 Pulse Rate [ Anterior Throughout] Pulse Rate [ From Monitor] Respiratory 20 18 18 Rate Respiratory Rate [Anterior Throughout] Blood Pressure 94/43 105/51 109/47 O2 Sat by Pulse 94 92 93 Oximetry 03/10/19 03/10/19 03/10/19 05:46 06:00 06:15 Temperature Pulse Rate 88 89 85 Pulse Rate [ Anterior Throughout] Pulse Rate [ From Monitor] Respiratory 18 21 23 Rate Respiratory Rate [Anterior Throughout] Blood Pressure 108/43 104/53 112/53 O2 Sat by Pulse 94 93 93 Oximetry 03/10/19 03/10/19 03/10/19 06:30 06:45 07:00 Temperature Pulse Rate 94 H 93 H 92 H Pulse Rate [ Anterior Throughout] Pulse Rate [ From Monitor] Respiratory 20 17 18 Rate Respiratory Rate [Anterior Throughout] Blood Pressure 112/53 100/53 104/53 O2 Sat by Pulse 93 93 Oximetry 03/10/19 03/10/19 03/10/19 07:15 07:30 07:46 Temperature Pulse Rate 101 H 97 H 91 H Pulse Rate [ Anterior Throughout] Pulse Rate [ From Monitor] Respiratory 20 20 22 Rate Respiratory Rate [Anterior Throughout] Blood Pressure 89/59 89/59 121/74 O2 Sat by Pulse 92 91 90 Oximetry 03/10/19 03/10/19 03/10/19 08:00 08:56 09:00 Temperature Pulse Rate 98 H 82 Pulse Rate [ 107 H Anterior Throughout] Pulse Rate [ 97 H From Monitor] Respiratory 22 Rate Respiratory 38 H Rate [Anterior Throughout] Blood Pressure 115/58 113/54 O2 Sat by Pulse 90 94 Oximetry Constitutional: lethargic, other (middle aged obese AAF with mildly increased respiratory distress on MVS) Eyes: icteric ENT: other (Small bowel feeding tube in place, 7.[address] 23cm at the lip) Neck: supple, no lymphadenopathy, no JVD, other (Left IJ CVC; large neck circumference) Effort: mildly labored Ascultation: Bilateral: diminished breath sounds, rales Percussion: Bilateral: not dull Cardiovascular: regular rate and rhythm, other (Tachycardia S1,S2, no murmurs. Anterior chest wall dressing) Gastrointestinal: normoactive bowel sounds, soft, non-tender, non-distended Integumentary: other (Chest wall wound) Extremities: no cyanosis, pulses normal, no ischemia or petechiae, edema, other (edema) Neurologic: pupils equal and round, other (sedated, unable to assess) Psychiatric: other (unable to assess re: AMS) CBC and BMP: 03/08/19 06:30 03/09/19 08:00 ABG, PT/INR, D-dimer: ABG POC ABG pH 7.187 (7.35-7.45) L 03/10/19 03:55 ABG pH 7.335 pH Units (7.350-7.450) L 03/03/19 05:25 ABG pCO2 61.3 mm Hg 03/03/19 05:25 POC ABG pO2 76 (80-105) L 03/10/19 03:55 ABG pO2 89.2 mm Hg (80.0-90.0) 03/03/19 05:25 POC ABG HCO3 35.4 (22-26 mml/L) 03/10/19 03:55 POC ABG Total CO2 38 (23-27mmol/L) 03/10/19 03:55 POC ABG O2 Sat 90 03/10/19 03:55 ABG O2 Saturation 97.0 % (95.0-99.0) 03/03/19 05:25 PT/INR, D-dimer PT 14.8 Sec. (12.2-14.9) 02/27/19 12:38 INR 1.17 (0.87-1.13) H 02/27/19 12:38 D-Dimer 5778.32 ng/mlDDU (0-234) H 02/27/19 12:38 Abnormal lab findings: Abnormal Labs 02/27/19 02/27/19 02/27/19 11:33 11:33 11:33 WBC 18.6 H RBC 3.60 L Hgb 8.7 L Hct 28.8 L MCH 24 L MCHC RDW 23.0 H Plt Count 507 H Lymph % (Auto) 12.9 L [place] # 1.3 H Seg Neutrophils % 79.7 H Seg Neuts % (Manual) Lymphocytes % (Manual) Nucleated RBC % Seg Neutrophils # 14.8 H Seg Neutrophils # Man Lymphocytes # (Manual) Monocytes # (Manual) INR D-Dimer POC ABG pH ABG pH POC ABG pCO2 POC ABG pO2 ABG pO2 ABG HCO3 ABG O2 Saturation ABG Base Excess ABG Hemoglobin Oxyhemoglobin Sodium Potassium Chloride 96.8 L Carbon Dioxide BUN 28 H Creatinine 0.5 L Glucose 169 H POC Glucose Lactic Acid 3.40 H* Phosphorus Magnesium AST ALT Alkaline Phosphatase Ammonia Total Creatine Kinase 197 H CK-MB (CK-2) 4.1 H NT-Pro-B Natriuret Pep Total Protein Albumin Free T4 Urine Creatinine Urine Chloride Crossmatch 02/27/19 02/27/19 02/27/19 11:33 11:45 11:47 WBC RBC Hgb Hct MCH MCHC RDW Plt Count Lymph % (Auto) [place] # Seg Neutrophils % Seg Neuts % (Manual) Lymphocytes % (Manual) Nucleated RBC % Seg Neutrophils # Seg Neutrophils # Man Lymphocytes # (Manual) Monocytes # (Manual) INR D-Dimer POC ABG pH ABG pH POC ABG pCO2 POC ABG pO2 ABG pO2 ABG HCO3 ABG O2 Saturation ABG Base Excess ABG Hemoglobin Oxyhemoglobin Sodium Potassium Chloride Carbon Dioxide BUN Creatinine Glucose POC Glucose 169 H Lactic Acid Phosphorus Magnesium AST 95 H ALT Alkaline Phosphatase 130 H Ammonia Total Creatine Kinase CK-MB (CK-2) NT-Pro-B Natriuret Pep Total Protein Albumin 2.9 L Free T4 Urine Creatinine Urine Chloride Crossmatch See Detail 02/27/19 02/27/19 02/27/19 12:30 12:38 14:08 WBC RBC Hgb Hct MCH MCHC RDW Plt Count Lymph % (Auto) [place] # Seg Neutrophils % Seg Neuts % (Manual) Lymphocytes % (Manual) Nucleated RBC % Seg Neutrophils # Seg Neutrophils # Man Lymphocytes # (Manual) Monocytes # (Manual) INR 1.17 H D-Dimer 5778.32 H POC ABG pH 7.326 L ABG pH POC ABG pCO2 POC ABG pO2 129 H ABG pO2 ABG HCO3 ABG O2 Saturation ABG Base Excess ABG Hemoglobin Oxyhemoglobin Sodium Potassium Chloride Carbon Dioxide BUN Creatinine Glucose POC Glucose Lactic Acid 3.00 H* Phosphorus Magnesium AST ALT Alkaline Phosphatase Ammonia Total Creatine Kinase CK-MB (CK-2) NT-Pro-B Natriuret Pep Total Protein Albumin Free T4 Urine Creatinine Urine Chloride Crossmatch 02/27/19 02/27/19 02/27/19 15:03 16:06 18:08 WBC RBC Hgb Hct MCH MCHC RDW Plt Count Lymph % (Auto) [place] # Seg Neutrophils % Seg Neuts % (Manual) Lymphocytes % (Manual) Nucleated RBC % Seg Neutrophils # Seg Neutrophils # Man Lymphocytes # (Manual) Monocytes # (Manual) INR D-Dimer POC ABG pH ABG pH POC ABG pCO2 68.8 H POC ABG pO2 225 H ABG pO2 ABG HCO3 ABG O2 Saturation ABG Base Excess ABG Hemoglobin Oxyhemoglobin Sodium Potassium Chloride Carbon Dioxide BUN Creatinine Glucose POC Glucose Lactic Acid 3.20 H* 2.80 H* Phosphorus Magnesium AST ALT Alkaline Phosphatase Ammonia Total Creatine Kinase CK-MB (CK-2) NT-Pro-B Natriuret Pep Total Protein Albumin Free T4 Urine Creatinine Urine Chloride Crossmatch 02/27/19 02/28/19 02/28/19 18:12 10:00 10:00 WBC 13.3 H RBC 3.39 L Hgb 8.1 L Hct 26.7 L MCH 24 L MCHC RDW 22.5 H Plt Count Lymph % (Auto) [place] # Seg Neutrophils % Seg Neuts % (Manual) Lymphocytes % (Manual) Nucleated RBC % Seg Neutrophils # Seg Neutrophils # Man Lymphocytes # (Manual) Monocytes # (Manual) INR D-Dimer POC ABG pH ABG pH POC ABG pCO2 POC ABG pO2 ABG pO2 ABG HCO3 ABG O2 Saturation ABG Base Excess ABG Hemoglobin Oxyhemoglobin Sodium 146 H Potassium Chloride Carbon Dioxide 32 H BUN 32 H Creatinine 0.5 L Glucose 111 H POC Glucose Lactic Acid 2.30 H* Phosphorus Magnesium AST 93 H ALT Alkaline Phosphatase Ammonia Total Creatine Kinase CK-MB (CK-2) NT-Pro-B Natriuret Pep Total Protein Albumin 2.6 L Free T4 Urine Creatinine Urine Chloride Crossmatch 02/28/19 03/01/19 03/01/19 10:26 00:05 05:00 WBC 20.2 H RBC Hgb 9.0 L Hct 29.9 L MCH 24 L MCHC RDW 22.8 H Plt Count 498 H Lymph % (Auto) [place] # Seg Neutrophils % Seg Neuts % (Manual) Lymphocytes % (Manual) Nucleated RBC % Seg Neutrophils # Seg Neutrophils # Man Lymphocytes # (Manual) Monocytes # (Manual) INR D-Dimer POC ABG pH ABG pH POC ABG pCO2 54.2 H POC ABG pO2 ABG pO2 ABG HCO3 ABG O2 Saturation ABG Base Excess ABG Hemoglobin Oxyhemoglobin Sodium Potassium Chloride Carbon Dioxide BUN Creatinine Glucose POC Glucose 167 H Lactic Acid Phosphorus Magnesium AST ALT Alkaline Phosphatase Ammonia Total Creatine Kinase CK-MB (CK-2) NT-Pro-B Natriuret Pep Total Protein Albumin Free T4 Urine Creatinine Urine Chloride Crossmatch 03/01/19 03/01/19 03/01/19 05:00 12:36 17:31 WBC RBC Hgb Hct MCH MCHC RDW Plt Count Lymph % (Auto) [place] # Seg Neutrophils % Seg Neuts % (Manual) Lymphocytes % (Manual) Nucleated RBC % Seg Neutrophils # Seg Neutrophils # Man Lymphocytes # (Manual) Monocytes # (Manual) INR D-Dimer POC ABG pH ABG pH POC ABG pCO2 POC ABG pO2 ABG pO2 ABG HCO3 ABG O2 Saturation ABG Base Excess ABG Hemoglobin Oxyhemoglobin Sodium 148 H Potassium Chloride Carbon Dioxide 37 H BUN 43 H Creatinine 0.6 L Glucose 150 H POC Glucose 140 H 157 H Lactic Acid Phosphorus Magnesium AST ALT Alkaline Phosphatase Ammonia Total Creatine Kinase CK-MB (CK-2) NT-Pro-B Natriuret Pep Total Protein Albumin Free T4 Urine Creatinine Urine Chloride Crossmatch 03/02/19 03/02/19 03/02/19 04:29 04:32 05:27 WBC RBC Hgb Hct MCH MCHC RDW Plt Count Lymph % (Auto) [place] # Seg Neutrophils % Seg Neuts % (Manual) Lymphocytes % (Manual) Nucleated RBC % Seg Neutrophils # Seg Neutrophils # Man Lymphocytes # (Manual) Monocytes # (Manual) INR D-Dimer POC ABG pH 7.056 L ABG pH POC ABG pCO2 POC ABG pO2 64 L ABG pO2 ABG HCO3 ABG O2 Saturation ABG Base Excess ABG Hemoglobin Oxyhemoglobin Sodium Potassium Chloride Carbon Dioxide BUN Creatinine Glucose POC Glucose 161 H Lactic Acid Phosphorus Magnesium AST ALT Alkaline Phosphatase Ammonia Total Creatine Kinase CK-MB (CK-2) NT-Pro-B Natriuret Pep 2143 H Total Protein Albumin Free T4 Urine Creatinine Urine Chloride Crossmatch 03/02/19 03/02/19 03/02/19 05:27 05:27 05:27 WBC 17.8 H RBC 3.50 L Hgb 8.5 L Hct 29.5 L MCH 24 L MCHC 29 L RDW 21.9 H Plt Count Lymph % (Auto) [place] # Seg Neutrophils % Seg Neuts % (Manual) 94.0 H Lymphocytes % (Manual) 2.0 L Nucleated RBC % 1.0 H Seg Neutrophils # Seg Neutrophils # Man 16.7 H Lymphocytes # (Manual) 0.4 L Monocytes # (Manual) INR D-Dimer POC ABG pH ABG pH POC ABG pCO2 POC ABG pO2 ABG pO2 ABG HCO3 ABG O2 Saturation ABG Base Excess ABG Hemoglobin Oxyhemoglobin Sodium 156 H D Potassium 5.4 H Chloride 108.6 H Carbon Dioxide 39 H BUN 60 H Creatinine Glucose 159 H POC Glucose Lactic Acid Phosphorus Magnesium AST 164 H ALT Alkaline Phosphatase 164 H Ammonia 81.0 H Total Creatine Kinase CK-MB (CK-2) NT-Pro-B Natriuret Pep Total Protein 6.2 L Albumin 2.2 L Free T4 Urine Creatinine Urine Chloride Crossmatch 03/02/19 03/02/19 03/02/19 05:27 06:04 10:56 WBC RBC Hgb Hct MCH MCHC RDW Plt Count Lymph % (Auto) [place] # Seg Neutrophils % Seg Neuts % (Manual) Lymphocytes % (Manual) Nucleated RBC % Seg Neutrophils # Seg Neutrophils # Man Lymphocytes # (Manual) Monocytes # (Manual) INR D-Dimer POC ABG pH ABG pH 7.239 L POC ABG pCO2 POC ABG pO2 ABG pO2 60.0 L 103.9 H ABG HCO3 36.6 H 32.9 H ABG O2 Saturation 88.3 L ABG Base Excess 7.3 H 7.7 H ABG Hemoglobin 9.1 L 9.0 L Oxyhemoglobin 86.3 L Sodium Potassium Chloride Carbon Dioxide BUN Creatinine Glucose POC Glucose Lactic Acid Phosphorus 6.90 H Magnesium 2.80 H AST ALT Alkaline Phosphatase Ammonia Total Creatine Kinase CK-MB (CK-2) NT-Pro-B Natriuret Pep Total Protein Albumin Free T4 Urine Creatinine Urine Chloride Crossmatch 03/02/19 03/02/19 03/02/19 13:58 23:40 Unknown WBC RBC Hgb Hct MCH MCHC RDW Plt Count Lymph % (Auto) [place] # Seg Neutrophils % Seg Neuts % (Manual) Lymphocytes % (Manual) Nucleated RBC % Seg Neutrophils # Seg Neutrophils # Man Lymphocytes # (Manual) Monocytes # (Manual) INR D-Dimer POC ABG pH ABG pH POC ABG pCO2 POC ABG pO2 ABG pO2 ABG HCO3 ABG O2 Saturation ABG Base Excess ABG Hemoglobin Oxyhemoglobin Sodium Potassium Chloride Carbon Dioxide BUN Creatinine Glucose POC Glucose 127 H 161 H Lactic Acid Phosphorus Magnesium AST ALT Alkaline Phosphatase Ammonia Total Creatine Kinase CK-MB (CK-2) NT-Pro-B Natriuret Pep Total Protein Albumin Free T4 Urine Creatinine 218.2 H Urine Chloride Crossmatch 03/03/19 03/03/19 03/03/19 05:00 05:00 05:25 WBC 17.8 H RBC 3.62 L Hgb 8.8 L Hct 28.9 L MCH 24 L MCHC RDW 22.8 H Plt Count Lymph % (Auto) [place] # Seg Neutrophils % Seg Neuts % (Manual) 96.0 H Lymphocytes % (Manual) 1.0 L Nucleated RBC % 3.0 H Seg Neutrophils # Seg Neutrophils # Man 17.1 H Lymphocytes # (Manual) 0.2 L Monocytes # (Manual) INR D-Dimer POC ABG pH ABG pH 7.335 L POC ABG pCO2 POC ABG pO2 ABG pO2 ABG HCO3 32.0 H ABG O2 Saturation ABG Base Excess 5.2 H ABG Hemoglobin 8.2 L Oxyhemoglobin 94.9 L Sodium 160 H Potassium 3.5 L D Chloride 113.7 H Carbon Dioxide BUN 90 H Creatinine 1.7 H D Glucose 149 H POC Glucose Lactic Acid Phosphorus Magnesium 2.90 H AST 624 H ALT 211 H Alkaline Phosphatase 416 H Ammonia Total Creatine Kinase CK-MB (CK-2) NT-Pro-B Natriuret Pep Total Protein 6.2 L Albumin 2.2 L Free T4 Urine Creatinine Urine Chloride Crossmatch 03/03/19 03/03/19 03/03/19 05:41 12:27 15:54 WBC RBC Hgb Hct MCH MCHC RDW Plt Count Lymph % (Auto) [place] # Seg Neutrophils % Seg Neuts % (Manual) Lymphocytes % (Manual) Nucleated RBC % Seg Neutrophils # Seg Neutrophils # Man Lymphocytes # (Manual) Monocytes # (Manual) INR D-Dimer POC ABG pH ABG pH POC ABG pCO2 POC ABG pO2 ABG pO2 ABG HCO3 ABG O2 Saturation ABG Base Excess ABG Hemoglobin Oxyhemoglobin Sodium Potassium Chloride Carbon Dioxide BUN Creatinine Glucose POC Glucose 150 H 167 H Lactic Acid Phosphorus Magnesium AST ALT Alkaline Phosphatase Ammonia Total Creatine Kinase CK-MB (CK-2) NT-Pro-B Natriuret Pep Total Protein Albumin Free T4 0.50 L Urine Creatinine Urine Chloride Crossmatch 03/03/19 03/03/19 03/04/19 17:32 23:57 04:11 WBC RBC Hgb Hct MCH MCHC RDW Plt Count Lymph % (Auto) [place] # Seg Neutrophils % Seg Neuts % (Manual) Lymphocytes % (Manual) Nucleated RBC % Seg Neutrophils # Seg Neutrophils # Man Lymphocytes # (Manual) Monocytes # (Manual) INR D-Dimer POC ABG pH 7.332 L ABG pH POC ABG pCO2 57.1 H POC ABG pO2 ABG pO2 ABG HCO3 ABG O2 Saturation ABG Base Excess ABG Hemoglobin Oxyhemoglobin Sodium Potassium Chloride Carbon Dioxide BUN Creatinine Glucose POC Glucose 165 H 202 H Lactic Acid Phosphorus Magnesium AST ALT Alkaline Phosphatase Ammonia Total Creatine Kinase CK-MB (CK-2) NT-Pro-B Natriuret Pep Total Protein Albumin Free T4 Urine Creatinine Urine Chloride Crossmatch 03/04/19 03/04/19 03/04/19 04:38 04:38 05:30 WBC 23.0 H RBC 3.36 L Hgb 7.9 L Hct 26.6 L MCH 24 L MCHC RDW 23.1 H Plt Count Lymph % (Auto) [place] # Seg Neutrophils % Seg Neuts % (Manual) 98.0 H Lymphocytes % (Manual) 0 L Nucleated RBC % Seg Neutrophils # Seg Neutrophils # Man 22.5 H Lymphocytes # (Manual) 0.0 L Monocytes # (Manual) INR D-Dimer POC ABG pH ABG pH POC ABG pCO2 POC ABG pO2 ABG pO2 ABG HCO3 ABG O2 Saturation ABG Base Excess ABG Hemoglobin Oxyhemoglobin Sodium 151 H D Potassium Chloride 110.4 H Carbon Dioxide BUN 103 H Creatinine 2.0 H Glucose 177 H POC Glucose 172 H Lactic Acid Phosphorus Magnesium AST 244 H ALT 159 H Alkaline Phosphatase 365 H Ammonia Total Creatine Kinase CK-MB (CK-2) NT-Pro-B Natriuret Pep Total Protein 5.9 L Albumin 2.1 L Free T4 Urine Creatinine Urine Chloride Crossmatch 03/04/19 03/04/19 03/04/19 12:10 12:39 18:11 WBC RBC Hgb Hct MCH MCHC RDW Plt Count Lymph % (Auto) [place] # Seg Neutrophils % Seg Neuts % (Manual) Lymphocytes % (Manual) Nucleated RBC % Seg Neutrophils # Seg Neutrophils # Man Lymphocytes # (Manual) Monocytes # (Manual) INR D-Dimer POC ABG pH ABG pH POC ABG pCO2 POC ABG pO2 ABG pO2 ABG HCO3 ABG O2 Saturation ABG Base Excess ABG Hemoglobin Oxyhemoglobin Sodium Potassium Chloride Carbon Dioxide BUN Creatinine Glucose POC Glucose 226 H 173 H Lactic Acid Phosphorus Magnesium AST ALT Alkaline Phosphatase Ammonia Total Creatine Kinase CK-MB (CK-2) NT-Pro-B Natriuret Pep Total Protein Albumin Free T4 Urine Creatinine 185.9 H Urine Chloride 10.2 L Crossmatch 03/04/19 03/05/19 03/05/19 23:24 04:16 04:28 WBC 23.8 H RBC 3.08 L Hgb 7.5 L Hct 25.0 L MCH 24 L MCHC RDW 23.0 H Plt Count Lymph % (Auto) [place] # Seg Neutrophils % Seg Neuts % (Manual) 96.0 H Lymphocytes % (Manual) 3.0 L Nucleated RBC % 1.0 H Seg Neutrophils # Seg Neutrophils # Man 22.8 H Lymphocytes # (Manual) 0.7 L Monocytes # (Manual) INR D-Dimer POC ABG pH 7.274 L ABG pH POC ABG pCO2 59.7 H POC ABG pO2 107 H ABG pO2 ABG HCO3 ABG O2 Saturation ABG Base Excess ABG Hemoglobin Oxyhemoglobin Sodium Potassium Chloride Carbon Dioxide BUN Creatinine Glucose POC Glucose 184 H Lactic Acid Phosphorus Magnesium AST ALT Alkaline Phosphatase Ammonia Total Creatine Kinase CK-MB (CK-2) NT-Pro-B Natriuret Pep Total Protein Albumin Free T4 Urine Creatinine Urine Chloride Crossmatch 03/05/19 03/05/19 03/05/19 04:28 04:28 05:29 WBC RBC Hgb Hct MCH MCHC RDW Plt Count Lymph % (Auto) [place] # Seg Neutrophils % Seg Neuts % (Manual) Lymphocytes % (Manual) Nucleated RBC % Seg Neutrophils # Seg Neutrophils # Man Lymphocytes # (Manual) Monocytes # (Manual) INR D-Dimer POC ABG pH ABG pH POC ABG pCO2 POC ABG pO2 ABG pO2 ABG HCO3 ABG O2 Saturation ABG Base Excess ABG Hemoglobin Oxyhemoglobin Sodium 147 H Potassium Chloride 107.9 H Carbon Dioxide BUN 112 H Creatinine 2.3 H Glucose 153 H POC Glucose 147 H Lactic Acid Phosphorus Magnesium AST 188 H ALT 138 H Alkaline Phosphatase 384 H Ammonia 71.0 H Total Creatine Kinase CK-MB (CK-2) NT-Pro-B Natriuret Pep Total Protein 6.0 L Albumin 2.2 L Free T4 Urine Creatinine Urine Chloride Crossmatch 03/05/19 03/05/19 03/05/19 12:00 17:44 23:48 WBC RBC Hgb Hct MCH MCHC RDW Plt Count Lymph % (Auto) [place] # Seg Neutrophils % Seg Neuts % (Manual) Lymphocytes % (Manual) Nucleated RBC % Seg Neutrophils # Seg Neutrophils # Man Lymphocytes # (Manual) Monocytes # (Manual) INR D-Dimer POC ABG pH ABG pH POC ABG pCO2 POC ABG pO2 ABG pO2 ABG HCO3 ABG O2 Saturation ABG Base Excess ABG Hemoglobin Oxyhemoglobin Sodium Potassium Chloride Carbon Dioxide BUN Creatinine Glucose POC Glucose 181 H 111 H 120 H Lactic Acid Phosphorus Magnesium AST ALT Alkaline Phosphatase Ammonia Total Creatine Kinase CK-MB (CK-2) NT-Pro-B Natriuret Pep Total Protein Albumin Free T4 Urine Creatinine Urine Chloride Crossmatch 03/06/19 03/06/19 03/06/19 04:55 04:55 05:19 WBC 26.5 H RBC 3.28 L Hgb 7.7 L Hct 26.4 L MCH 24 L MCHC 29 L RDW 23.0 H Plt Count Lymph % (Auto) [place] # Seg Neutrophils % Seg Neuts % (Manual) 98.0 H Lymphocytes % (Manual) 2.0 L Nucleated RBC % 2.0 H Seg Neutrophils # Seg Neutrophils # Man 26.0 H Lymphocytes # (Manual) 0.5 L Monocytes # (Manual) INR D-Dimer POC ABG pH 7.248 L ABG pH POC ABG pCO2 65.9 H POC ABG pO2 79 L ABG pO2 ABG HCO3 ABG O2 Saturation ABG Base Excess ABG Hemoglobin Oxyhemoglobin Sodium 147 H Potassium Chloride Carbon Dioxide BUN 132 H Creatinine 2.6 H Glucose 128 H POC Glucose Lactic Acid Phosphorus Magnesium AST 207 H ALT 144 H Alkaline Phosphatase 529 H Ammonia Total Creatine Kinase CK-MB (CK-2) NT-Pro-B Natriuret Pep Total Protein 6.1 L Albumin 2.4 L Free T4 Urine Creatinine Urine Chloride Crossmatch 03/06/19 03/06/19 03/06/19 05:35 13:06 15:20 WBC RBC Hgb Hct MCH MCHC RDW Plt Count Lymph % (Auto) [place] # Seg Neutrophils % Seg Neuts % (Manual) Lymphocytes % (Manual) Nucleated RBC % Seg Neutrophils # Seg Neutrophils # Man Lymphocytes # (Manual) Monocytes # (Manual) INR D-Dimer POC ABG pH 7.263 L ABG pH POC ABG pCO2 64.7 H POC ABG pO2 67 L ABG pO2 ABG HCO3 ABG O2 Saturation ABG Base Excess ABG Hemoglobin Oxyhemoglobin Sodium Potassium Chloride Carbon Dioxide BUN Creatinine Glucose POC Glucose 113 H 123 H Lactic Acid Phosphorus Magnesium AST ALT Alkaline Phosphatase Ammonia Total Creatine Kinase CK-MB (CK-2) NT-Pro-B Natriuret Pep Total Protein Albumin Free T4 Urine Creatinine Urine Chloride Crossmatch 03/06/19 03/06/19 03/07/19 18:41 23:33 04:34 WBC RBC Hgb Hct MCH MCHC RDW Plt Count Lymph % (Auto) [place] # Seg Neutrophils % Seg Neuts % (Manual) Lymphocytes % (Manual) Nucleated RBC % Seg Neutrophils # Seg Neutrophils # Man Lymphocytes # (Manual) Monocytes # (Manual) INR D-Dimer POC ABG pH 7.258 L ABG pH POC ABG pCO2 65.6 H POC ABG pO2 73 L ABG pO2 ABG HCO3 ABG O2 Saturation ABG Base Excess ABG Hemoglobin Oxyhemoglobin Sodium Potassium Chloride Carbon Dioxide BUN Creatinine Glucose POC Glucose 131 H 141 H Lactic Acid Phosphorus Magnesium AST ALT Alkaline Phosphatase Ammonia Total Creatine Kinase CK-MB (CK-2) NT-Pro-B Natriuret Pep Total Protein Albumin Free T4 Urine Creatinine Urine Chloride Crossmatch 03/07/19 03/07/19 03/07/19 05:13 11:47 12:19 WBC RBC Hgb Hct MCH MCHC RDW Plt Count Lymph % (Auto) [place] # Seg Neutrophils % Seg Neuts % (Manual) Lymphocytes % (Manual) Nucleated RBC % Seg Neutrophils # Seg Neutrophils # Man Lymphocytes # (Manual) Monocytes # (Manual) INR D-Dimer POC ABG pH ABG pH POC ABG pCO2 POC ABG pO2 ABG pO2 ABG HCO3 ABG O2 Saturation ABG Base Excess ABG Hemoglobin Oxyhemoglobin Sodium Potassium Chloride Carbon Dioxide BUN Creatinine Glucose POC Glucose 122 H 128 H 132 H Lactic Acid Phosphorus Magnesium AST ALT Alkaline Phosphatase Ammonia Total Creatine Kinase CK-MB (CK-2) NT-Pro-B Natriuret Pep Total Protein Albumin Free T4 Urine Creatinine Urine Chloride Crossmatch 03/07/19 03/07/19 03/07/19 16 17:45 23:14 WBC RBC Hgb Hct MCH MCHC RDW Plt Count Lymph % (Auto) [place] # Seg Neutrophils % Seg Neuts % (Manual) Lymphocytes % (Manual) Nucleated RBC % Seg Neutrophils # Seg Neutrophils # Man Lymphocytes # (Manual) Monocytes # (Manual) INR D-Dimer POC ABG pH 7.246 L ABG pH POC ABG pCO2 65.2 H POC ABG pO2 69 L ABG pO2 ABG HCO3 ABG O2 Saturation ABG Base Excess ABG Hemoglobin Oxyhemoglobin Sodium Potassium Chloride Carbon Dioxide BUN Creatinine Glucose POC Glucose 159 H 152 H Lactic Acid Phosphorus Magnesium AST ALT Alkaline Phosphatase Ammonia Total Creatine Kinase CK-MB (CK-2) NT-Pro-B Natriuret Pep Total Protein Albumin Free T4 Urine Creatinine Urine Chloride Crossmatch 03/08/19 03/08/19 03/08/19 04:09 04:51 06:30 WBC 27.8 H RBC 3.35 L Hgb 7.9 L Hct 27.0 L MCH 24 L MCHC 29 L RDW 23.0 H Plt Count Lymph % (Auto) [place] # Seg Neutrophils % Seg Neuts % (Manual) 91.0 H Lymphocytes % (Manual) 4.0 L Nucleated RBC % 5.0 H Seg Neutrophils # Seg Neutrophils # Man 25.3 H Lymphocytes # (Manual) 1.1 L Monocytes # (Manual) 1.1 H INR D-Dimer POC ABG pH 7.155 L ABG pH POC ABG pCO2 POC ABG pO2 79 L ABG pO2 ABG HCO3 ABG O2 Saturation ABG Base Excess ABG Hemoglobin Oxyhemoglobin Sodium Potassium Chloride Carbon Dioxide BUN Creatinine Glucose POC Glucose 153 H Lactic Acid Phosphorus Magnesium AST ALT Alkaline Phosphatase Ammonia Total Creatine Kinase CK-MB (CK-2) NT-Pro-B Natriuret Pep Total Protein Albumin Free T4 Urine Creatinine Urine Chloride Crossmatch 03/08/19 03/08/19 03/08/19 06:30 09:29 12:13 WBC RBC Hgb Hct MCH MCHC RDW Plt Count Lymph % (Auto) [place] # Seg Neutrophils % Seg Neuts % (Manual) Lymphocytes % (Manual) Nucleated RBC % Seg Neutrophils # Seg Neutrophils # Man Lymphocytes # (Manual) Monocytes # (Manual) INR D-Dimer POC ABG pH 7.182 L ABG pH POC ABG pCO2 POC ABG pO2 77 L ABG pO2 ABG HCO3 ABG O2 Saturation ABG Base Excess ABG Hemoglobin Oxyhemoglobin Sodium Potassium 6.5 H* D Chloride Carbon Dioxide BUN 164 H Creatinine 3.3 H Glucose 141 H POC Glucose 133 H Lactic Acid Phosphorus Magnesium AST 543 H ALT 280 H Alkaline Phosphatase 641 H Ammonia Total Creatine Kinase CK-MB (CK-2) NT-Pro-B Natriuret Pep Total Protein 6.2 L Albumin 2.5 L Free T4 Urine Creatinine Urine Chloride Crossmatch 03/08/19 03/08/19 03/09/19 17:49 23:55 05:35 WBC RBC Hgb Hct MCH MCHC RDW Plt Count Lymph % (Auto) [place] # Seg Neutrophils % Seg Neuts % (Manual) Lymphocytes % (Manual) Nucleated RBC % Seg Neutrophils # Seg Neutrophils # Man Lymphocytes # (Manual) Monocytes # (Manual) INR D-Dimer POC ABG pH ABG pH POC ABG pCO2 POC ABG pO2 ABG pO2 ABG HCO3 ABG O2 Saturation ABG Base Excess ABG Hemoglobin Oxyhemoglobin Sodium Potassium Chloride Carbon Dioxide BUN Creatinine Glucose POC Glucose 159 H 136 H 134 H Lactic Acid Phosphorus Magnesium AST ALT Alkaline Phosphatase Ammonia Total Creatine Kinase CK-MB (CK-2) NT-Pro-B Natriuret Pep Total Protein Albumin Free T4 Urine Creatinine Urine Chloride Crossmatch 03/09/19 03/09/19 03/09/19 05:54 08:00 12:29 WBC RBC Hgb Hct MCH MCHC RDW Plt Count Lymph % (Auto) [place] # Seg Neutrophils % Seg Neuts % (Manual) Lymphocytes % (Manual) Nucleated RBC % Seg Neutrophils # Seg Neutrophils # Man Lymphocytes # (Manual) Monocytes # (Manual) INR D-Dimer POC ABG pH 7.160 L ABG pH POC ABG pCO2 POC ABG pO2 ABG pO2 ABG HCO3 ABG O2 Saturation ABG Base Excess ABG Hemoglobin Oxyhemoglobin Sodium Potassium 5.6 H Chloride 95.5 L Carbon Dioxide BUN 98 H Creatinine 2.7 H Glucose 143 H POC Glucose 144 H Lactic Acid Phosphorus Magnesium AST ALT Alkaline Phosphatase Ammonia Total Creatine Kinase CK-MB (CK-2) NT-Pro-B Natriuret Pep Total Protein Albumin Free T4 Urine Creatinine Urine Chloride Crossmatch 03/09/19 03/09/19 03/09/19 13:25 18:19 23:51 WBC RBC Hgb Hct MCH MCHC RDW Plt Count Lymph % (Auto) [place] # Seg Neutrophils % Seg Neuts % (Manual) Lymphocytes % (Manual) Nucleated RBC % Seg Neutrophils # Seg Neutrophils # Man Lymphocytes # (Manual) Monocytes # (Manual) INR D-Dimer POC ABG pH 7.184 L ABG pH POC ABG pCO2 POC ABG pO2 65 L ABG pO2 ABG HCO3 ABG O2 Saturation ABG Base Excess ABG Hemoglobin Oxyhemoglobin Sodium Potassium Chloride Carbon Dioxide BUN Creatinine Glucose POC Glucose 163 H 157 H Lactic Acid Phosphorus Magnesium AST ALT Alkaline Phosphatase Ammonia Total Creatine Kinase CK-MB (CK-2) NT-Pro-B Natriuret Pep Total Protein Albumin Free T4 Urine Creatinine Urine Chloride Crossmatch 03/10/19 03/10/19 03:55 05:48 WBC RBC Hgb Hct MCH MCHC RDW Plt Count Lymph % (Auto) [place] # Seg Neutrophils % Seg Neuts % (Manual) Lymphocytes % (Manual) Nucleated RBC % Seg Neutrophils # Seg Neutrophils # Man Lymphocytes # (Manual) Monocytes # (Manual) INR D-Dimer POC ABG pH 7.187 L ABG pH POC ABG pCO2 POC ABG pO2 76 L ABG pO2 ABG HCO3 ABG O2 Saturation ABG Base Excess ABG Hemoglobin Oxyhemoglobin Sodium Potassium Chloride Carbon Dioxide BUN Creatinine Glucose POC Glucose 141 H Lactic Acid Phosphorus Magnesium AST ALT Alkaline Phosphatase Ammonia Total Creatine Kinase CK-MB (CK-2) NT-Pro-B Natriuret Pep Total Protein Albumin Free T4 Urine Creatinine Urine Chloride Crossmatch Allied health notes reviewed: RT
[2019-03-10] MEDS: FAMOTIDINE 20 MG/2 ML INJ IV SCH (09:28)
[2019-03-10] MEDS: MEROPENEM/NS 1 GRAM/100 ML 1 GRAM/100 ML BAG IV SCH ×2 (09:29→21:34)
[2019-03-10] MEDS: ENOXAPARIN 30 MG/0.3 ML INJ SUB-Q SCH (09:29)
[2019-03-10] MEDS: LACTULOSE 20 GM/30 ML ORAL LIQD PO SCH ×2 (09:30→21:34)
--- NOTE | 2019-03-10 10:52 | Progress Note ---
Assessment and Plan - Patient Problems (1) SELAM (acute kidney injury) Current Visit: Yes Status: Acute Plan to address problem: Acute tubular necrosis in the setting of hypotension/sepsis. Patient is dialysis dependent. Hemodialysis again today for sodium clearance and fluid removal. Reevaluate subsequently (2) Acute respiratory failure Current Visit: Yes Status: Acute Qualifiers: Respiratory failure complication: hypoxia Qualified Code(s): J96.01 - Acute respiratory failure with hypoxia Plan to address problem: Continue ventilator management by pulmonary (3) Anasarca Current Visit: Yes Status: Acute Plan to address problem: Fluid removal with dialysis. Reevaluate (4) Anemia Current Visit: Yes Status: Acute Qualifiers: Anemia type: unspecified type Qualified Code(s): D64.9 - Anemia, unspecified Plan to address problem: Give Erythropoetin on dialysis. (5) Hyperkalemia Current Visit: Yes Status: Acute Plan to address problem: Improving with dialysis. (6) Metastatic breast cancer Current Visit: Yes Status: Chronic Plan to address problem: Continue management by oncologist (7) Pneumonia Current Visit: Yes Status: Suspected Qualifiers: Pneumonia type: due to unspecified organism Laterality: bilateral Lung location: unspecified part of lung Qualified Code(s): J18.9 - Pneumonia, unspecified organism Plan to address problem: Continue antibiotics Subjective Date of service: 03/10/19 Principal diagnosis: Ac. hypoxemic resp failure; Sev Sepsis; R. pleural effusio n; Met. breast CA Interval history: Patient seen lying in bed. Intubated on ventilator. ACs/PRV 25/35/85% PEEP of 14. Off of Levophed. On fentanyl Objective - Exam Narrative Exam: Obese middle-aged -[place] female lying in bed intubated on ventilator HEENT: NCAT, pink oral mucous membrane Neck: Supple, no venous distention CVS: S1S2 RRR with no murmur, rub or gallop Chest: Diminished breath sounds Abdomen: Obese soft, nontender, no organomegaly, bowel sounds are present Extremities: 2-3+ edema Neuro: Sedated on ventilator - Vital Signs Vital signs: Vital Signs - 12hr 03/09/19 03/09/19 03/09/19 23:00 23:05 23:15 Temperature Pulse Rate 90 95 H 94 H Pulse Rate [ Anterior Throughout] Pulse Rate [ From Monitor] Respiratory 31 H 26 H 25 H Rate Respiratory Rate [Anterior Throughout] Blood Pressure 133/55 133/55 134/53 O2 Sat by Pulse 93 93 93 Oximetry 03/09/19 03/09/19 03/09/19 23:30 23:45 23:59 Temperature Pulse Rate 91 H 95 H 85 Pulse Rate [ Anterior Throughout] Pulse Rate [ From Monitor] Respiratory 34 H 29 H Rate Respiratory Rate [Anterior Throughout] Blood Pressure 116/55 125/57 125/57 O2 Sat by Pulse 93 93 93 Oximetry 03/10/19 03/10/19 03/10/19 00:00 00:15 00:30 Temperature 98.9 F Pulse Rate 89 100 H 94 H Pulse Rate [ Anterior Throughout] Pulse Rate [ 88 From Monitor] Respiratory 21 25 H 19 Rate Respiratory Rate [Anterior Throughout] Blood Pressure 125/57 114/67 131/60 O2 Sat by Pulse 93 92 92 Oximetry 03/10/19 03/10/19 03/10/19 00:45 01:00 01:15 Temperature Pulse Rate 102 H 94 H 99 H Pulse Rate [ Anterior Throughout] Pulse Rate [ From Monitor] Respiratory 24 22 20 Rate Respiratory Rate [Anterior Throughout] Blood Pressure 118/60 131/60 116/69 O2 Sat by Pulse 92 91 91 Oximetry 03/10/19 03/10/19 03/10/19 01:30 01:45 02:00 Temperature Pulse Rate 100 H 101 H 84 Pulse Rate [ Anterior Throughout] Pulse Rate [ From Monitor] Respiratory 24 18 20 Rate Respiratory Rate [Anterior Throughout] Blood Pressure 101/62 115/59 115/59 O2 Sat by Pulse 91 93 90 Oximetry 03/10/19 03/10/19 03/10/19 02:15 02:30 02:45 Temperature Pulse Rate 82 97 H 100 H Pulse Rate [ Anterior Throughout] Pulse Rate [ From Monitor] Respiratory 20 17 17 Rate Respiratory Rate [Anterior Throughout] Blood Pressure 122/59 110/56 105/54 O2 Sat by Pulse 89 89 91 Oximetry 03/10/19 03/10/19 03/10/19 03:00 03:15 03:30 Temperature Pulse Rate 102 H 98 H 96 H Pulse Rate [ Anterior Throughout] Pulse Rate [ From Monitor] Respiratory 18 19 19 Rate Respiratory Rate [Anterior Throughout] Blood Pressure 99/51 96/52 100/48 O2 Sat by Pulse 92 92 94 Oximetry 03/10/19 03/10/19 03/10/19 03:36 03:45 04:00 Temperature 98.0 F Pulse Rate 94 H 93 H 94 H Pulse Rate [ Anterior Throughout] Pulse Rate [ 98 H From Monitor] Respiratory 19 21 Rate Respiratory Rate [Anterior Throughout] Blood Pressure 100/48 108/46 108/46 O2 Sat by Pulse 93 93 94 Oximetry 03/10/19 03/10/19 03/10/19 04:15 04:30 04:45 Temperature Pulse Rate 95 H 100 H 89 Pulse Rate [ Anterior Throughout] Pulse Rate [ From Monitor] Respiratory 21 23 19 Rate Respiratory Rate [Anterior Throughout] Blood Pressure 107/52 101/40 108/44 O2 Sat by Pulse 93 94 93 Oximetry 03/10/19 03/10/19 03/10/19 05:00 05:16 05:30 Temperature Pulse Rate 96 H 100 H 86 Pulse Rate [ Anterior Throughout] Pulse Rate [ From Monitor] Respiratory 20 18 18 Rate Respiratory Rate [Anterior Throughout] Blood Pressure 94/43 105/51 109/47 O2 Sat by Pulse 94 92 93 Oximetry 03/10/19 03/10/19 03/10/19 05:46 06:00 06:15 Temperature Pulse Rate 88 89 85 Pulse Rate [ Anterior Throughout] Pulse Rate [ From Monitor] Respiratory 18 21 23 Rate Respiratory Rate [Anterior Throughout] Blood Pressure 108/43 104/53 112/53 O2 Sat by Pulse 94 93 93 Oximetry 03/10/19 03/10/19 03/10/19 06:30 06:45 07:00 Temperature Pulse Rate 94 H 93 H 92 H Pulse Rate [ Anterior Throughout] Pulse Rate [ From Monitor] Respiratory 20 17 18 Rate Respiratory Rate [Anterior Throughout] Blood Pressure 112/53 100/53 104/53 O2 Sat by Pulse 93 93 Oximetry 03/10/19 03/10/19 03/10/19 07:15 07:30 07:46 Temperature Pulse Rate 101 H 97 H 91 H Pulse Rate [ Anterior Throughout] Pulse Rate [ From Monitor] Respiratory 20 20 22 Rate Respiratory Rate [Anterior Throughout] Blood Pressure 89/59 89/59 121/74 O2 Sat by Pulse 92 91 90 Oximetry 03/10/19 03/10/19 03/10/19 08:00 08:15 08:30 Temperature Pulse Rate 98 H 100 H 92 H Pulse Rate [ Anterior Throughout] Pulse Rate [ 97 H From Monitor] Respiratory 22 40 H 23 Rate Respiratory Rate [Anterior Throughout] Blood Pressure 115/58 110/56 107/48 O2 Sat by Pulse 90 Oximetry 03/10/19 03/10/19 03/10/19 08:45 08:56 09:00 Temperature Pulse Rate 96 H 82 109 H Pulse Rate [ 107 H Anterior Throughout] Pulse Rate [ From Monitor] Respiratory 29 H 24 Rate Respiratory 38 H Rate [Anterior Throughout] Blood Pressure 113/54 113/54 117/60 O2 Sat by Pulse 94 94 Oximetry 03/10/19 03/10/19 03/10/19 09:15 09:30 09:45 Temperature Pulse Rate 85 100 H 99 H Pulse Rate [ Anterior Throughout] Pulse Rate [ From Monitor] Respiratory 37 H 23 34 H Rate Respiratory Rate [Anterior Throughout] Blood Pressure 122/60 114/51 117/50 O2 Sat by Pulse 89 91 91 Oximetry 03/10/19 03/10/19 10:00 10:15 Temperature Pulse Rate 84 100 H Pulse Rate [ Anterior Throughout] Pulse Rate [ From Monitor] Respiratory 30 H 25 H Rate Respiratory Rate [Anterior Throughout] Blood Pressure 108/46 114/53 O2 Sat by Pulse 91 90 Oximetry - Lab 03/08/19 06:30 03/09/19 08:00 Most recent lab results ABG pH 7.335 pH Units (7.350-7.450) L 03/03/19 05:25 ABG pCO2 61.3 mm Hg 03/03/19 05:25 ABG pO2 89.2 mm Hg (80.0-90.0) 03/03/19 05:25 ABG HCO3 32.0 mmol/L (20.0-26.0) H 03/03/19 05:25 ABG O2 Saturation 97.0 % (95.0-99.0) 03/03/19 05:25 Calcium 8.5 mg/dL (8.4-10.2) 03/09/19 08:00 Phosphorus 3.30 mg/dL (2.5-4.5) D 03/03/19 05:00 Magnesium 2.90 mg/dL (1.7-2.3) H 03/03/19 05:00 Urine Creatinine 185.9 mg/dL (0.1-20.0) H 03/04/19 12:39 Urine Sodium 13 mmol/L 03/04/19 12:39 Medications & Allergies - Medications Allergies/Adverse Reactions: Allergies aspirin Adverse Reaction (Verified 10/08/19 12:25) GI Upset Home Medications: Home Medications Medication Instructions Recorded Confirmed Last Taken Type amLODIPine 5 mg PO DAILY 01/27/19 02/27/19 02/15/19 10:00 History Albuterol Sulfate [Proventil Hfa] 6.7 gm IH Q6H PRN #1 can 02/11/19 02/27/19 02/15/19 15:00 Rx Clindamycin [Clindamycin CAP] 300 mg PO Q8H #21 cap 02/11/19 02/27/19 02/15/19 10:00 Rx oxyCODONE [roxiCODONE] 10 mg PO Q6HR PRN 02/15/19 02/27/19 Unknown History Budesonide/Formoterol Fumarate 2 puff IH BID #1 hfa.aer.ad 02/19/19 02/27/19 Unknown Rx [Symbicort 160-4.5 Mcg Inhaler] HYDROcodone/APAP 10-325 [[place] 1 each PO Q6HR PRN #30 tablet 02/19/19 02/27/19 Unknown Rx 10/325] cephALEXin [Keflex] 500 mg PO Q6HR #40 capsule 02/19/19 02/27/19 Unknown Rx Active Medications: Generic Name Dose Route Start Last Admin Trade Name Freq PRN Reason Stop Dose Admin Acetaminophen 650 mg 03/02/19 13:46 03/02/19 15:38 Tylenol PO 650 mg Q6H PRN Administration Fever >101 Albuterol 2.5 mg 02/27/19 21:08 02/28/19 12:35 Proventil IH 2.5 mg Q4HRT PRN Administration Shortness Of Breath Albuterol/Ipratropium 1 ampul 02/28/19 08:00 03/10/19 09:00 Duoneb *Not For Prn Use* IH 1 ampul TIDRT MANISH Administration Lipase/Protease/Amylase 1 each 03/03/19 08:54 Kaley Zamora 10,500 Unit FEEDTUBE PRN PRN For Clogged Feeding Tube Enoxaparin Sodium 30 mg 03/04/19 10:00 03/10/19 09:29 Enoxaparin SUB-Q 30 mg QDAY MANISH Administration Famotidine 20 mg 03/10/19 10:00 03/10/19 09:28 Pepcid IV 20 mg QDAY MANISH Administration Hydrophilic Ointment 1 applic 03/02/19 04:40 Vaseline Lip Therapy TP Q2HR PRN Dry Lips Norepinephrine 4 mg in 250 mls @ 7.5 mls/hr 03/02/19 05:00 03/10/19 00:10 Levophed Drip 4 Mg/Ns 250 Ml IV 0 mcg/min TITR MANISH 0 mls/hr Titration Protocol 2 MCG/MIN Vasopressin 20 unit/ Sodium 101 mls @ 9.09 mls/hr 03/02/19 05:00 03/05/19 10 :32 Chloride IV 0 units/min TITR MANISH 0 mls/hr Titration Protocol 0.03 UNITS/MIN Fentanyl Citrate 2,000 mcg in 100 mls @ 4.64 mls/hr 03/02/19 17:00 03/10/19 07:49 Fentanyl Drip Premix IV 2 mcg/kg/hr TITR MANISH 9.28 mls/hr Administration Protocol 1 MCG/KG/HR MEROPENEM/NS 1 GRAM/100 ML 1 gram in 100 mls @ 100 mls/hr 03/04/19 14:00 03/10/19 09:29 Merrem/Ns 1 Gram/100 Ml IV 03/10/19 23:59 100 mls/hr Q12HR MANISH Administration Protocol Propofol 1,000 mg in 100 mls @ 2.844 mls/hr 03/06/19 13:00 03/09/19 18:47 Diprivan 10 Mg/Ml IV 0 mcg/kg/min TITR MANISH 0 mls/hr Titration Protocol 5 MCG/KG/MIN Sodium Bicarbonate 150 meq/ 1,150 mls @ 100 mls/hr 03/08/19 11:00 03/10/19 07:49 Dextrose IV 100 mls/hr DIRECT MANISH Administration Sodium Chloride 100 mls @ 999 mls/hr 03/09/19 07:55 Nacl 0.9% IV CUAUHTEMOC PRN Hypotension Insulin Human Lispro 0 unit 03/04/19 13:00 03/10/19 06:32 Humalog SUB-Q Not Given Q6HR MANISH Protocol Lactulose 20 gm 03/02/19 10:00 03/10/19 09:30 Cephulac PO 20 gm Q12HR MANISH Administration Methylprednisolone Sodium Succinate 40 mg 03/05/19 14:00 03/10/19 06:31 Solu-Medrol IV 40 mg Q8HR MANIHS Administration Multi-Ingred Cream/Lotion/Oil/Oint 1 applic 03/02/19 16:43 Artificial Tears Ophth Oint OU Q4HR PRN Dry Eye(s) Simple Syrup 15 ml 03/03/19 08:54 Simple Syrup FEEDTUBE PRN PRN Hypoglycemia Simple Syrup 30 ml 03/03/19 08:54 Simple Syrup FEEDTUBE PRN PRN Hypoglycemia Sodium Bicarbonate 325 mg 03/03/19 08:54 Sodium Bicarbonate FEEDTUBE PRN PRN For Clogged Feeding Tube
[2019-03-10] MEDS ORDERED: SODIUM CHLORIDE 0.9% 100 ML IV PRN (12:22)
[2019-03-10] MEDS: PROPOFOL 1,000 MG/100 ML BOTTLE IV SCH ×2 (13:46→21:54)
--- NOTE | 2019-03-10 14:31 | Progress Note ---
Assessment and Plan Cultures: Blood culture 02/27/19 no growth to date Urine culture 02/27/19 no growth to date Throacentesis culture 02/28/19 - no growth, no orgs on gram stain. 03/02/2019 sputum: olive albicans Assessment: 49 yo F PMHx metastatic breast cancer admitted with worsening shortness of breath. 1. Acute sepsis with shock - leukocytosis worsening likely reactive to malignancy. On and off pressors. Likely secondary to pneumonia. Breast wound looks clean. 2. B/L Pneumonia with malignant effusion - difficult to tell with imaging. S/P thoracentesis, no growth on culture. Cythology of pleural fluid with malignant cells. Sputum with Olive - colonization. 3. Large breast wound - no obvious purulence and family denies any issues with the wound at this time. Obvious risk for infection, but at present appears stable. 4. Metastatic breast cancer 5. SELAM: Creatinine worsening. s/p emergent HD 6. Worsening LFTs and alkaline phosphatase, bilirubin normal. ?shock liver v/s mets. RUQ US suggestive of contracted gall bladder, multiple gall stones with possible chronic cholecystitis. Recs: Stop IV Meropenem, renally adjusted D7 of 7 Overall extremely poor prognosis with malignant pleural effusion consider palliative care please remove lawson if not needed monitor off abx D/W Dr Meehan Will follow. Su Reynaga MD Infectious Diseases [facility] M [phone] O [phone] Subjective Date of service: 03/10/19 Principal diagnosis: Ac. hypoxemic resp failure; Sev Sepsis; R. pleural effusion; Met. breast CA Interval history: Remains intubated on the vent on pressors-levo at 2, fentanyl. No fever. Objective - Exam Narrative Exam: Constitutional: sedated, intubated Head, Ears, Nose: Normocephalic, atraumatic. External ears, nose normal Eyes: Conjunctivae/corneas clear. No icterus. No ptosis. Neck: intubated Oral: intubated Cardiovascular: S1, S2 normal. Respiratory: Good air entry, clear to auscultation bilaterally GI: Soft, non-tender; bowel sounds normal. No peritoneal signs Musculoskeletal: No pedal edema, no cyanosis. Skin: large left breast wound + with dressing no drainage, right breast with induration Hem/Lymphatic: No palpable cervical or supraclavicular nodes. No lymphangitis Psych: sedated Neurological: sedated, intubated, on vent +lawson right femoral TLC - Constitutional Vitals: Vital Signs Temp Pulse Resp BP Pulse Ox 97.8 F 97 H 21 112/50 90 03/10/19 12:00 03/10/19 14:00 03/10/19 14:00 03/10/19 14:00 03/10/19 14:00 Temperature -Last 24 Hours Temperature 97.8 F Temperature 98.1 F Temperature 98.0 F Temperature 98.9 F Temperature 98.4 F Temperature 97.8 F Temperature 97.9 F Temperature 97.9 F Temperature 97.9 F - Labs CBC & Chem 7: 03/08/19 06:30 03/09/19 08:00 Labs: Abnormal lab results 03/09/19 03/09/19 03/09/19 Range/Units 13:25 18:19 23:51 POC ABG pH 7.184 L (7.35-7.45) POC ABG pCO2 (35-45) POC ABG pO2 65 L (80-105) POC Glucose 163 H 157 H (70-105) 03/10/19 03/10/19 03/10/19 Range/Units 03:55 05:48 11:47 POC ABG pH 7.187 L (7.35-7.45) POC ABG pCO2 > 70 H (35-45) POC ABG pO2 76 L (80-105) POC Glucose 141 H 151 H (70-105)
--- NOTE | 2019-03-10 15:09 | Progress Note ---
Assessment and Plan Acute hypoxemic-hypercapnic respiratory failure Sepsis, possible from left lung pneumonia Right pleural effusion Metastatic breast cancer Hypernatremia Poor medical compliance Obesity - resumed PCV - begin Reglan for GI motility - resume tubes feeds at 10 ml's/hr and advance back to goal - keep Peep at 14 cm H2O - asked casemanager to arrange family conference - continue to wean FIO2 for O2 sats >90% - repeat ABG after 2-4 hours - resume Propofol gtt to improve tolerance / reduce dyssynchrony - bilateral lower extremity Doppler's negative for DVT - continue fentanyl gtt and titrate for RASS 0 to -1 - continue enteral nutrition at goal rate as tolerated - continue scopolamine patch for secretion control (+ Robkristy acuitely) - wean vasopressors for target MAP > 65 mmHg - continue daily SAT's and SBT assessment as tolerated in am - CT head on hold till more stable - continue lawson catheter in this critically ill patient with quickly progressing SELAM - VAP bundle addressed (Aspiration precautions, HOB > 40 degrees) - continue Lung protective strategies - continue bronchodilators with pulmonary hygiene per RT - daily CXR's & ABG's acutely - Azotemia per nephrology team - continue to avoid nephrotoxins and adjust all medications fro GFR and CrCL - continue enteral nutrition and advance to goal rate as tolerated (hold for tentative extubation) - continue agitation management / Pain management per CPOT - complete empiric antibiotics for PNA - continue VTE prophylaxis - continue stress ulcer prophylaxis with PPI - continue accuchecks with glycemic control for SSI (While critically ill target blood glucose of 140-180 mg/dL; avoid hypoglycemia) - Continue mobility protocol for pressure ulcer prevention - Continue to monitor hemodynamics closely - Monitor electrolyte profile closely and replete as indicated - continue chronic home medications per attending and as clinically indicated - s/p thoracentesis (1400 ml's drained); follow studies - Wound care per RN & WCT - continue Free water for hypernatremia - continue other care per attending / other consultants ...... care plan discussed with at bedside CONDITION: CRITICAL PROGNOSIS: GUARDED-POOR CODE STATUS: FULL CODE The high probability of a clinically significant, sudden or life-threatening deterioration of the [cardiac, respiratory & neurologic] system(s) required my full and direct attention, intervention and personal management. The aggregate critical care time was [34] minutes without overlap. Time includes spent on; [x] Data Review and interpretation [x] Patient assessment and monitoring of vital signs [x] Documentation [x] Medication orders and management Subjective Date of service: 03/10/19 Principal diagnosis: Ac. hypoxemic resp failure; Sev Sepsis; R. pleural effusion; Met. breast CA Interval history: Patient is seen today for: Acute hypoxemic-hypercapnic respiratory failure; Sepsis, possible from left lung pneumonia; Right pleural effusion; Metastatic breast cancer; Hypernatremia; Poor medical compliance; Obesity Seen and examined at bedside; 24hour events reviewed; nursing and respiratory care staff consulted; no adverse overnight events reported to me; resting in bed; remains on MVS; on AC mode but triggering high PIP's; FiO2 up to 85%; back on Levophed and with significant ventilator dyssynchrony. Also high residuals and tube feeds on hold Objective Vital Signs - 12hr 03/10/19 03/10/19 03/10/19 03:15 03:30 03:36 Temperature Pulse Rate 98 H 96 H 94 H Pulse Rate [ Anterior Throughout] Pulse Rate [ From Monitor] Respiratory 19 19 Rate Respiratory Rate [Anterior Throughout] Blood Pressure 96/52 100/48 100/48 O2 Sat by Pulse 92 94 93 Oximetry 03/10/19 03/10/19 03/10/19 03:45 04:00 04:15 Temperature 98.0 F Pulse Rate 93 H 94 H 95 H Pulse Rate [ Anterior Throughout] Pulse Rate [ 98 H From Monitor] Respiratory 19 21 21 Rate Respiratory Rate [Anterior Throughout] Blood Pressure 108/46 108/46 107/52 O2 Sat by Pulse 93 94 93 Oximetry 03/10/19 03/10/19 03/10/19 04:30 04:45 05:00 Temperature Pulse Rate 100 H 89 96 H Pulse Rate [ Anterior Throughout] Pulse Rate [ From Monitor] Respiratory 23 19 20 Rate Respiratory Rate [Anterior Throughout] Blood Pressure 101/40 108/44 94/43 O2 Sat by Pulse 94 93 94 Oximetry 03/10/19 03/10/19 03/10/19 05:16 05:30 05:46 Temperature Pulse Rate 100 H 86 88 Pulse Rate [ Anterior Throughout] Pulse Rate [ From Monitor] Respiratory 18 18 18 Rate Respiratory Rate [Anterior Throughout] Blood Pressure 105/51 109/47 108/43 O2 Sat by Pulse 92 93 94 Oximetry 1103/10/19 03/10/19 06:00 06:15 06:30 Temperature Pulse Rate 89 85 94 H Pulse Rate [ Anterior Throughout] Pulse Rate [ From Monitor] Respiratory 21 23 20 Rate Respiratory Rate [Anterior Throughout] Blood Pressure 104/53 112/53 112/53 O2 Sat by Pulse 93 93 Oximetry 03/10/19 03/10/19 03/10/19 06:45 07:00 07:15 Temperature Pulse Rate 93 H 92 H 101 H Pulse Rate [ Anterior Throughout] Pulse Rate [ From Monitor] Respiratory 17 18 20 Rate Respiratory Rate [Anterior Throughout] Blood Pressure 100/53 104/53 89/59 O2 Sat by Pulse 93 93 92 Oximetry 03/10/19 03/10/19 03/10/19 07:30 07:46 08:00 Temperature 98.1 F Pulse Rate 97 H 91 H 98 H Pulse Rate [ Anterior Throughout] Pulse Rate [ 97 H From Monitor] Respiratory 20 22 22 Rate Respiratory Rate [Anterior Throughout] Blood Pressure 89/59 121/74 115/58 O2 Sat by Pulse 91 90 90 Oximetry 03/10/19 03/10/19 03/10/19 08:15 08:30 08:45 Temperature Pulse Rate 100 H 92 H 96 H Pulse Rate [ Anterior Throughout] Pulse Rate [ From Monitor] Respiratory 40 H 23 29 H Rate Respiratory Rate [Anterior Throughout] Blood Pressure 110/56 107/48 113/54 O2 Sat by Pulse Oximetry 03/10/19 03/10/19 03/10/19 08:56 09:00 09:15 Temperature Pulse Rate 82 109 H 85 Pulse Rate [ 107 H Anterior Throughout] Pulse Rate [ From Monitor] Respiratory 24 37 H Rate Respiratory 38 H Rate [Anterior Throughout] Blood Pressure 113/54 117/60 122/60 O2 Sat by Pulse 94 94 89 Oximetry 03/10/19 03/10/19 03/10/19 09:30 09:45 10:00 Temperature Pulse Rate 100 H 99 H 84 Pulse Rate [ Anterior Throughout] Pulse Rate [ From Monitor] Respiratory 23 34 H 30 H Rate Respiratory Rate [Anterior Throughout] Blood Pressure 114/51 117/50 108/46 O2 Sat by Pulse 91 91 91 Oximetry 03/10/19 03/10/19 03/10/19 10:15 10:30 10:45 Temperature Pulse Rate 100 H 98 H 97 H Pulse Rate [ Anterior Throughout] Pulse Rate [ From Monitor] Respiratory 25 H 38 H 36 H Rate Respiratory Rate [Anterior Throughout] Blood Pressure 114/53 120/62 113/62 O2 Sat by Pulse 90 90 90 Oximetry 03/10/19 03/10/19 03/10/19 11:00 11:15 11:30 Temperature Pulse Rate 103 H 94 H 98 H Pulse Rate [ Anterior Throughout] Pulse Rate [ From Monitor] Respiratory 29 H 26 H 21 Rate Respiratory Rate [Anterior Throughout] Blood Pressure 101/52 94/59 99/66 O2 Sat by Pulse 91 88 Oximetry 03/10/19 03/10/19 03/10/19 11:45 12:00 12:15 Temperature 97.8 F Pulse Rate 98 H 104 H 99 H Pulse Rate [ Anterior Throughout] Pulse Rate [ 100 H From Monitor] Respiratory 40 H 22 22 Rate Respiratory Rate [Anterior Throughout] Blood Pressure 106/56 109/56 91/45 O2 Sat by Pulse 90 91 Oximetry 03/10/19 03/10/19 03/10/19 12:30 12:45 13:00 Temperature Pulse Rate 95 H 80 96 H Pulse Rate [ Anterior Throughout] Pulse Rate [ From Monitor] Respiratory 24 21 22 Rate Respiratory Rate [Anterior Throughout] Blood Pressure 91/39 99/52 106/51 O2 Sat by Pulse 92 93 91 Oximetry 03/10/19 03/10/19 03/10/19 13:15 13:23 13:30 Temperature Pulse Rate 78 97 H 101 H Pulse Rate [ Anterior Throughout] Pulse Rate [ From Monitor] Respiratory 21 21 Rate Respiratory Rate [Anterior Throughout] Blood Pressure 104/41 99/45 102/49 O2 Sat by Pulse 92 95 91 Oximetry 03/10/19 03/10/19 03/10/19 13:34 13:45 14:00 Temperature Pulse Rate 99 H 94 H 97 H Pulse Rate [ Anterior Throughout] Pulse Rate [ From Monitor] Respiratory 21 21 Rate Respiratory Rate [Anterior Throughout] Blood Pressure 102/49 112/50 112/50 O2 Sat by Pulse 90 90 90 Oximetry Constitutional: lethargic, appears uncomfortable, other (middle aged obese AAF with moderately increased respiratory distress on MVS) Eyes: icteric ENT: other (Small bowel feeding tube in place, 7.[address] 23cm at the lip) Neck: supple, no lymphadenopathy, no JVD, other (Left IJ CVC; large neck circumference) Effort: mildly labored Ascultation: Bilateral: diminished breath sounds, rales Percussion: Bilateral: not dull Cardiovascular: regular rate and rhythm, other (Tachycardia S1,S2, no murmurs. Anterior chest wall dressing) Gastrointestinal: normoactive bowel sounds, soft, non-tender, non-distended Integumentary: other (Chest wall wound) Extremities: no cyanosis, pulses normal, no ischemia or petechiae, edema, other (edema) Neurologic: pupils equal and round, other (sedated, unable to assess) Psychiatric: other (unable to assess re: AMS) CBC and BMP: 03/08/19 06:30 03/09/19 08:00 ABG, PT/INR, D-dimer: ABG POC ABG pH 7.187 (7.35-7.45) L 03/10/19 03:55 ABG pH 7.335 pH Units (7.350-7.450) L 03/03/19 05:25 POC ABG pCO2 > 70 (35-45) H 03/10/19 03:55 ABG pCO2 61.3 mm Hg 03/03/19 05:25 POC ABG pO2 76 (80-105) L 03/10/19 03:55 ABG pO2 89.2 mm Hg (80.0-90.0) 03/03/19 05:25 POC ABG HCO3 35.4 (22-26 mml/L) 03/10/19 03:55 POC ABG Total CO2 38 (23-27mmol/L) 03/10/19 03:55 POC ABG O2 Sat 90 03/10/19 03:55 ABG O2 Saturation 97.0 % (95.0-99.0) 03/03/19 05:25 PT/INR, D-dimer PT 14.8 Sec. (12.2-14.9) 02/27/19 12:38 INR 1.17 (0.87-1.13) H 02/27/19 12:38 D-Dimer 5778.32 ng/mlDDU (0-234) H 02/27/19 12:38 Abnormal lab findings: Abnormal Labs 02/27/19 02/27/19 02/27/19 11:33 11:33 11:33 WBC 18.6 H RBC 3.60 L Hgb 8.7 L Hct 28.8 L MCH 24 L MCHC RDW 23.0 H Plt Count 507 H Lymph % (Auto) 12.9 L [place] # 1.3 H Seg Neutrophils % 79.7 H Seg Neuts % (Manual) Lymphocytes % (Manual) Nucleated RBC % Seg Neutrophils # 14.8 H Seg Neutrophils # Man Lymphocytes # (Manual) Monocytes # (Manual) INR D-Dimer POC ABG pH ABG pH POC ABG pCO2 POC ABG pO2 ABG pO2 ABG HCO3 ABG O2 Saturation ABG Base Excess ABG Hemoglobin Oxyhemoglobin Sodium Potassium Chloride 96.8 L Carbon Dioxide BUN 28 H Creatinine 0.5 L Glucose 169 H POC Glucose Lactic Acid 3.40 H* Phosphorus Magnesium AST ALT Alkaline Phosphatase Ammonia Total Creatine Kinase 197 H CK-MB (CK-2) 4.1 H NT-Pro-B Natriuret Pep Total Protein Albumin Free T4 Urine Creatinine Urine Chloride Crossmatch 02/27/19 02/27/19 02/27/19 11:33 11:45 11:47 WBC RBC Hgb Hct MCH MCHC RDW Plt Count Lymph % (Auto) [place] # Seg Neutrophils % Seg Neuts % (Manual) Lymphocytes % (Manual) Nucleated RBC % Seg Neutrophils # Seg Neutrophils # Man Lymphocytes # (Manual) Monocytes # (Manual) INR D-Dimer POC ABG pH ABG pH POC ABG pCO2 POC ABG pO2 ABG pO2 ABG HCO3 ABG O2 Saturation ABG Base Excess ABG Hemoglobin Oxyhemoglobin Sodium Potassium Chloride Carbon Dioxide BUN Creatinine Glucose POC Glucose 169 H Lactic Acid Phosphorus Magnesium AST 95 H ALT Alkaline Phosphatase 130 H Ammonia Total Creatine Kinase CK-MB (CK-2) NT-Pro-B Natriuret Pep Total Protein Albumin 2.9 L Free T4 Urine Creatinine Urine Chloride Crossmatch See Detail 02/27/19 02/27/19 02/27/19 12:30 12:38 14:08 WBC RBC Hgb Hct MCH MCHC RDW Plt Count Lymph % (Auto) [place] # Seg Neutrophils % Seg Neuts % (Manual) Lymphocytes % (Manual) Nucleated RBC % Seg Neutrophils # Seg Neutrophils # Man Lymphocytes # (Manual) Monocytes # (Manual) INR 1.17 H D-Dimer 5778.32 H POC ABG pH 7.326 L ABG pH POC ABG pCO2 POC ABG pO2 129 H ABG pO2 ABG HCO3 ABG O2 Saturation ABG Base Excess ABG Hemoglobin Oxyhemoglobin Sodium Potassium Chloride Carbon Dioxide BUN Creatinine Glucose POC Glucose Lactic Acid 3.00 H* Phosphorus Magnesium AST ALT Alkaline Phosphatase Ammonia Total Creatine Kinase CK-MB (CK-2) NT-Pro-B Natriuret Pep Total Protein Albumin Free T4 Urine Creatinine Urine Chloride Crossmatch 02/27/19 02/27/19 02/27/19 15:03 16:06 18:08 WBC RBC Hgb Hct MCH MCHC RDW Plt Count Lymph % (Auto) [place] # Seg Neutrophils % Seg Neuts % (Manual) Lymphocytes % (Manual) Nucleated RBC % Seg Neutrophils # Seg Neutrophils # Man Lymphocytes # (Manual) Monocytes # (Manual) INR D-Dimer POC ABG pH ABG pH POC ABG pCO2 68.8 H POC ABG pO2 225 H ABG pO2 ABG HCO3 ABG O2 Saturation ABG Base Excess ABG Hemoglobin Oxyhemoglobin Sodium Potassium Chloride Carbon Dioxide BUN Creatinine Glucose POC Glucose Lactic Acid 3.20 H* 2.80 H* Phosphorus Magnesium AST ALT Alkaline Phosphatase Ammonia Total Creatine Kinase CK-MB (CK-2) NT-Pro-B Natriuret Pep Total Protein Albumin Free T4 Urine Creatinine Urine Chloride Crossmatch 02/27/19 02/28/19 02/28/19 18:12 10:00 10:00 WBC 13.3 H RBC 3.39 L Hgb 8.1 L Hct 26.7 L MCH 24 L MCHC RDW 22.5 H Plt Count Lymph % (Auto) [place] # Seg Neutrophils % Seg Neuts % (Manual) Lymphocytes % (Manual) Nucleated RBC % Seg Neutrophils # Seg Neutrophils # Man Lymphocytes # (Manual) Monocytes # (Manual) INR D-Dimer POC ABG pH ABG pH POC ABG pCO2 POC ABG pO2 ABG pO2 ABG HCO3 ABG O2 Saturation ABG Base Excess ABG Hemoglobin Oxyhemoglobin Sodium 146 H Potassium Chloride Carbon Dioxide 32 H BUN 32 H Creatinine 0.5 L Glucose 111 H POC Glucose Lactic Acid 2.30 H* Phosphorus Magnesium AST 93 H ALT Alkaline Phosphatase Ammonia Total Creatine Kinase CK-MB (CK-2) NT-Pro-B Natriuret Pep Total Protein Albumin 2.6 L Free T4 Urine Creatinine Urine Chloride Crossmatch 02/28/19 03/01/19 03/01/19 10:26 00:05 05:00 WBC 20.2 H RBC Hgb 9.0 L Hct 29.9 L MCH 24 L MCHC RDW 22.8 H Plt Count 498 H Lymph % (Auto) [place] # Seg Neutrophils % Seg Neuts % (Manual) Lymphocytes % (Manual) Nucleated RBC % Seg Neutrophils # Seg Neutrophils # Man Lymphocytes # (Manual) Monocytes # (Manual) INR D-Dimer POC ABG pH ABG pH POC ABG pCO2 54.2 H POC ABG pO2 ABG pO2 ABG HCO3 ABG O2 Saturation ABG Base Excess ABG Hemoglobin Oxyhemoglobin Sodium Potassium Chloride Carbon Dioxide BUN Creatinine Glucose POC Glucose 167 H Lactic Acid Phosphorus Magnesium AST ALT Alkaline Phosphatase Ammonia Total Creatine Kinase CK-MB (CK-2) NT-Pro-B Natriuret Pep Total Protein Albumin Free T4 Urine Creatinine Urine Chloride Crossmatch 03/01/19 03/01/19 03/01/19 05:00 12:36 17:31 WBC RBC Hgb Hct MCH MCHC RDW Plt Count Lymph % (Auto) [place] # Seg Neutrophils % Seg Neuts % (Manual) Lymphocytes % (Manual) Nucleated RBC % Seg Neutrophils # Seg Neutrophils # Man Lymphocytes # (Manual) Monocytes # (Manual) INR D-Dimer POC ABG pH ABG pH POC ABG pCO2 POC ABG pO2 ABG pO2 ABG HCO3 ABG O2 Saturation ABG Base Excess ABG Hemoglobin Oxyhemoglobin Sodium 148 H Potassium Chloride Carbon Dioxide 37 H BUN 43 H Creatinine 0.6 L Glucose 150 H POC Glucose 140 H 157 H Lactic Acid Phosphorus Magnesium AST ALT Alkaline Phosphatase Ammonia Total Creatine Kinase CK-MB (CK-2) NT-Pro-B Natriuret Pep Total Protein Albumin Free T4 Urine Creatinine Urine Chloride Crossmatch 03/02/19 03/02/19 03/02/19 04:29 04:32 05:27 WBC RBC Hgb Hct MCH MCHC RDW Plt Count Lymph % (Auto) [place] # Seg Neutrophils % Seg Neuts % (Manual) Lymphocytes % (Manual) Nucleated RBC % Seg Neutrophils # Seg Neutrophils # Man Lymphocytes # (Manual) Monocytes # (Manual) INR D-Dimer POC ABG pH 7.056 L ABG pH POC ABG pCO2 POC ABG pO2 64 L ABG pO2 ABG HCO3 ABG O2 Saturation ABG Base Excess ABG Hemoglobin Oxyhemoglobin Sodium Potassium Chloride Carbon Dioxide BUN Creatinine Glucose POC Glucose 161 H Lactic Acid Phosphorus Magnesium AST ALT Alkaline Phosphatase Ammonia Total Creatine Kinase CK-MB (CK-2) NT-Pro-B Natriuret Pep 2143 H Total Protein Albumin Free T4 Urine Creatinine Urine Chloride Crossmatch 03/02/19 03/02/19 03/02/19 05:27 05:27 05:27 WBC 17.8 H RBC 3.50 L Hgb 8.5 L Hct 29.5 L MCH 24 L MCHC 29 L RDW 21.9 H Plt Count Lymph % (Auto) [place] # Seg Neutrophils % Seg Neuts % (Manual) 94.0 H Lymphocytes % (Manual) 2.0 L Nucleated RBC % 1.0 H Seg Neutrophils # Seg Neutrophils # Man 16.7 H Lymphocytes # (Manual) 0.4 L Monocytes # (Manual) INR D-Dimer POC ABG pH ABG pH POC ABG pCO2 POC ABG pO2 ABG pO2 ABG HCO3 ABG O2 Saturation ABG Base Excess ABG Hemoglobin Oxyhemoglobin Sodium 156 H D Potassium 5.4 H Chloride 108.6 H Carbon Dioxide 39 H BUN 60 H Creatinine Glucose 159 H POC Glucose Lactic Acid Phosphorus Magnesium AST 164 H ALT Alkaline Phosphatase 164 H Ammonia 81.0 H Total Creatine Kinase CK-MB (CK-2) NT-Pro-B Natriuret Pep Total Protein 6.2 L Albumin 2.2 L Free T4 Urine Creatinine Urine Chloride Crossmatch 03/02/19 03/02/19 03/02/19 05:27 06:04 10:56 WBC RBC Hgb Hct MCH MCHC RDW Plt Count Lymph % (Auto) [place] # Seg Neutrophils % Seg Neuts % (Manual) Lymphocytes % (Manual) Nucleated RBC % Seg Neutrophils # Seg Neutrophils # Man Lymphocytes # (Manual) Monocytes # (Manual) INR D-Dimer POC ABG pH ABG pH 7.239 L POC ABG pCO2 POC ABG pO2 ABG pO2 60.0 L 103.9 H ABG HCO3 36.6 H 32.9 H ABG O2 Saturation 88.3 L ABG Base Excess 7.3 H 7.7 H ABG Hemoglobin 9.1 L 9.0 L Oxyhemoglobin 86.3 L Sodium Potassium Chloride Carbon Dioxide BUN Creatinine Glucose POC Glucose Lactic Acid Phosphorus 6.90 H Magnesium 2.80 H AST ALT Alkaline Phosphatase Ammonia Total Creatine Kinase CK-MB (CK-2) NT-Pro-B Natriuret Pep Total Protein Albumin Free T4 Urine Creatinine Urine Chloride Crossmatch 03/02/19 03/02/19 03/02/19 13:58 23:40 Unknown WBC RBC Hgb Hct MCH MCHC RDW Plt Count Lymph % (Auto) [place] # Seg Neutrophils % Seg Neuts % (Manual) Lymphocytes % (Manual) Nucleated RBC % Seg Neutrophils # Seg Neutrophils # Man Lymphocytes # (Manual) Monocytes # (Manual) INR D-Dimer POC ABG pH ABG pH POC ABG pCO2 POC ABG pO2 ABG pO2 ABG HCO3 ABG O2 Saturation ABG Base Excess ABG Hemoglobin Oxyhemoglobin Sodium Potassium Chloride Carbon Dioxide BUN Creatinine Glucose POC Glucose 127 H 161 H Lactic Acid Phosphorus Magnesium AST ALT Alkaline Phosphatase Ammonia Total Creatine Kinase CK-MB (CK-2) NT-Pro-B Natriuret Pep Total Protein Albumin Free T4 Urine Creatinine 218.2 H Urine Chloride Crossmatch 03/03/19 03/03/19 03/03/19 05:00 05:00 05:25 WBC 17.8 H RBC 3.62 L Hgb 8.8 L Hct 28.9 L MCH 24 L MCHC RDW 22.8 H Plt Count Lymph % (Auto) [place] # Seg Neutrophils % Seg Neuts % (Manual) 96.0 H Lymphocytes % (Manual) 1.0 L Nucleated RBC % 3.0 H Seg Neutrophils # Seg Neutrophils # Man 17.1 H Lymphocytes # (Manual) 0.2 L Monocytes # (Manual) INR D-Dimer POC ABG pH ABG pH 7.335 L POC ABG pCO2 POC ABG pO2 ABG pO2 ABG HCO3 32.0 H ABG O2 Saturation ABG Base Excess 5.2 H ABG Hemoglobin 8.2 L Oxyhemoglobin 94.9 L Sodium 160 H Potassium 3.5 L D Chloride 113.7 H Carbon Dioxide BUN 90 H Creatinine 1.7 H D Glucose 149 H POC Glucose Lactic Acid Phosphorus Magnesium 2.90 H AST 624 H ALT 211 H Alkaline Phosphatase 416 H Ammonia Total Creatine Kinase CK-MB (CK-2) NT-Pro-B Natriuret Pep Total Protein 6.2 L Albumin 2.2 L Free T4 Urine Creatinine Urine Chloride Crossmatch 03/03/19 03/03/19 03/03/19 05:41 12:27 15:54 WBC RBC Hgb Hct MCH MCHC RDW Plt Count Lymph % (Auto) [place] # Seg Neutrophils % Seg Neuts % (Manual) Lymphocytes % (Manual) Nucleated RBC % Seg Neutrophils # Seg Neutrophils # Man Lymphocytes # (Manual) Monocytes # (Manual) INR D-Dimer POC ABG pH ABG pH POC ABG pCO2 POC ABG pO2 ABG pO2 ABG HCO3 ABG O2 Saturation ABG Base Excess ABG Hemoglobin Oxyhemoglobin Sodium Potassium Chloride Carbon Dioxide BUN Creatinine Glucose POC Glucose 150 H 167 H Lactic Acid Phosphorus Magnesium AST ALT Alkaline Phosphatase Ammonia Total Creatine Kinase CK-MB (CK-2) NT-Pro-B Natriuret Pep Total Protein Albumin Free T4 0.50 L Urine Creatinine Urine Chloride Crossmatch 03/03/19 03/03/19 03/04/19 17:32 23:57 04:11 WBC RBC Hgb Hct MCH MCHC RDW Plt Count Lymph % (Auto) [place] # Seg Neutrophils % Seg Neuts % (Manual) Lymphocytes % (Manual) Nucleated RBC % Seg Neutrophils # Seg Neutrophils # Man Lymphocytes # (Manual) Monocytes # (Manual) INR D-Dimer POC ABG pH 7.332 L ABG pH POC ABG pCO2 57.1 H POC ABG pO2 ABG pO2 ABG HCO3 ABG O2 Saturation ABG Base Excess ABG Hemoglobin Oxyhemoglobin Sodium Potassium Chloride Carbon Dioxide BUN Creatinine Glucose POC Glucose 165 H 202 H Lactic Acid Phosphorus Magnesium AST ALT Alkaline Phosphatase Ammonia Total Creatine Kinase CK-MB (CK-2) NT-Pro-B Natriuret Pep Total Protein Albumin Free T4 Urine Creatinine Urine Chloride Crossmatch 03/04/19 03/04/19 03/04/19 04:38 04:38 05:30 WBC 23.0 H RBC 3.36 L Hgb 7.9 L Hct 26.6 L MCH 24 L MCHC RDW 23.1 H Plt Count Lymph % (Auto) [place] # Seg Neutrophils % Seg Neuts % (Manual) 98.0 H Lymphocytes % (Manual) 0 L Nucleated RBC % Seg Neutrophils # Seg Neutrophils # Man 22.5 H Lymphocytes # (Manual) 0.0 L Monocytes # (Manual) INR D-Dimer POC ABG pH ABG pH POC ABG pCO2 POC ABG pO2 ABG pO2 ABG HCO3 ABG O2 Saturation ABG Base Excess ABG Hemoglobin Oxyhemoglobin Sodium 151 H D Potassium Chloride 110.4 H Carbon Dioxide BUN 103 H Creatinine 2.0 H Glucose 177 H POC Glucose 172 H Lactic Acid Phosphorus Magnesium AST 244 H ALT 159 H Alkaline Phosphatase 365 H Ammonia Total Creatine Kinase CK-MB (CK-2) NT-Pro-B Natriuret Pep Total Protein 5.9 L Albumin 2.1 L Free T4 Urine Creatinine Urine Chloride Crossmatch 03/04/19 03/04/19 03/04/19 12:10 12:39 18:11 WBC RBC Hgb Hct MCH MCHC RDW Plt Count Lymph % (Auto) [place] # Seg Neutrophils % Seg Neuts % (Manual) Lymphocytes % (Manual) Nucleated RBC % Seg Neutrophils # Seg Neutrophils # Man Lymphocytes # (Manual) Monocytes # (Manual) INR D-Dimer POC ABG pH ABG pH POC ABG pCO2 POC ABG pO2 ABG pO2 ABG HCO3 ABG O2 Saturation ABG Base Excess ABG Hemoglobin Oxyhemoglobin Sodium Potassium Chloride Carbon Dioxide BUN Creatinine Glucose POC Glucose 226 H 173 H Lactic Acid Phosphorus Magnesium AST ALT Alkaline Phosphatase Ammonia Total Creatine Kinase CK-MB (CK-2) NT-Pro-B Natriuret Pep Total Protein Albumin Free T4 Urine Creatinine 185.9 H Urine Chloride 10.2 L Crossmatch 03/04/19 03/05/19 03/05/19 23:24 04:16 04:28 WBC 23.8 H RBC 3.08 L Hgb 7.5 L Hct 25.0 L MCH 24 L MCHC RDW 23.0 H Plt Count Lymph % (Auto) [place] # Seg Neutrophils % Seg Neuts % (Manual) 96.0 H Lymphocytes % (Manual) 3.0 L Nucleated RBC % 1.0 H Seg Neutrophils # Seg Neutrophils # Man 22.8 H Lymphocytes # (Manual) 0.7 L Monocytes # (Manual) INR D-Dimer POC ABG pH 7.274 L ABG pH POC ABG pCO2 59.7 H POC ABG pO2 107 H ABG pO2 ABG HCO3 ABG O2 Saturation ABG Base Excess ABG Hemoglobin Oxyhemoglobin Sodium Potassium Chloride Carbon Dioxide BUN Creatinine Glucose POC Glucose 184 H Lactic Acid Phosphorus Magnesium AST ALT Alkaline Phosphatase Ammonia Total Creatine Kinase CK-MB (CK-2) NT-Pro-B Natriuret Pep Total Protein Albumin Free T4 Urine Creatinine Urine Chloride Crossmatch 03/05/19 03/05/19 03/05/19 04:28 04:28 05:29 WBC RBC Hgb Hct MCH MCHC RDW Plt Count Lymph % (Auto) [place] # Seg Neutrophils % Seg Neuts % (Manual) Lymphocytes % (Manual) Nucleated RBC % Seg Neutrophils # Seg Neutrophils # Man Lymphocytes # (Manual) Monocytes # (Manual) INR D-Dimer POC ABG pH ABG pH POC ABG pCO2 POC ABG pO2 ABG pO2 ABG HCO3 ABG O2 Saturation ABG Base Excess ABG Hemoglobin Oxyhemoglobin Sodium 147 H Potassium Chloride 107.9 H Carbon Dioxide BUN 112 H Creatinine 2.3 H Glucose 153 H POC Glucose 147 H Lactic Acid Phosphorus Magnesium AST 188 H ALT 138 H Alkaline Phosphatase 384 H Ammonia 71.0 H Total Creatine Kinase CK-MB (CK-2) NT-Pro-B Natriuret Pep Total Protein 6.0 L Albumin 2.2 L Free T4 Urine Creatinine Urine Chloride Crossmatch 03/05/19 03/05/19 03/05/19 12:00 17:44 23:48 WBC RBC Hgb Hct MCH MCHC RDW Plt Count Lymph % (Auto) [place] # Seg Neutrophils % Seg Neuts % (Manual) Lymphocytes % (Manual) Nucleated RBC % Seg Neutrophils # Seg Neutrophils # Man Lymphocytes # (Manual) Monocytes # (Manual) INR D-Dimer POC ABG pH ABG pH POC ABG pCO2 POC ABG pO2 ABG pO2 ABG HCO3 ABG O2 Saturation ABG Base Excess ABG Hemoglobin Oxyhemoglobin Sodium Potassium Chloride Carbon Dioxide BUN Creatinine Glucose POC Glucose 181 H 111 H 120 H Lactic Acid Phosphorus Magnesium AST ALT Alkaline Phosphatase Ammonia Total Creatine Kinase CK-MB (CK-2) NT-Pro-B Natriuret Pep Total Protein Albumin Free T4 Urine Creatinine Urine Chloride Crossmatch 03/06/19 03/06/19 03/06/19 04:55 04:55 05:19 WBC 26.5 H RBC 3.28 L Hgb 7.7 L Hct 26.4 L MCH 24 L MCHC 29 L RDW 23.0 H Plt Count Lymph % (Auto) [place] # Seg Neutrophils % Seg Neuts % (Manual) 98.0 H Lymphocytes % (Manual) 2.0 L Nucleated RBC % 2.0 H Seg Neutrophils # Seg Neutrophils # Man 26.0 H Lymphocytes # (Manual) 0.5 L Monocytes # (Manual) INR D-Dimer POC ABG pH 7.248 L ABG pH POC ABG pCO2 65.9 H POC ABG pO2 79 L ABG pO2 ABG HCO3 ABG O2 Saturation ABG Base Excess ABG Hemoglobin Oxyhemoglobin Sodium 147 H Potassium Chloride Carbon Dioxide BUN 132 H Creatinine 2.6 H Glucose 128 H POC Glucose Lactic Acid Phosphorus Magnesium AST 207 H ALT 144 H Alkaline Phosphatase 529 H Ammonia Total Creatine Kinase CK-MB (CK-2) NT-Pro-B Natriuret Pep Total Protein 6.1 L Albumin 2.4 L Free T4 Urine Creatinine Urine Chloride Crossmatch 03/06/19 03/06/19 03/06/19 05:35 13:06 15:20 WBC RBC Hgb Hct MCH MCHC RDW Plt Count Lymph % (Auto) [place] # Seg Neutrophils % Seg Neuts % (Manual) Lymphocytes % (Manual) Nucleated RBC % Seg Neutrophils # Seg Neutrophils # Man Lymphocytes # (Manual) Monocytes # (Manual) INR D-Dimer POC ABG pH 7.263 L ABG pH POC ABG pCO2 64.7 H POC ABG pO2 67 L ABG pO2 ABG HCO3 ABG O2 Saturation ABG Base Excess ABG Hemoglobin Oxyhemoglobin Sodium Potassium Chloride Carbon Dioxide BUN Creatinine Glucose POC Glucose 113 H 123 H Lactic Acid Phosphorus Magnesium AST ALT Alkaline Phosphatase Ammonia Total Creatine Kinase CK-MB (CK-2) NT-Pro-B Natriuret Pep Total Protein Albumin Free T4 Urine Creatinine Urine Chloride Crossmatch 03/06/19 03/06/19 03/07/19 18:41 23:33 04:34 WBC RBC Hgb Hct MCH MCHC RDW Plt Count Lymph % (Auto) [place] # Seg Neutrophils % Seg Neuts % (Manual) Lymphocytes % (Manual) Nucleated RBC % Seg Neutrophils # Seg Neutrophils # Man Lymphocytes # (Manual) Monocytes # (Manual) INR D-Dimer POC ABG pH 7.258 L ABG pH POC ABG pCO2 65.6 H POC ABG pO2 73 L ABG pO2 ABG HCO3 ABG O2 Saturation ABG Base Excess ABG Hemoglobin Oxyhemoglobin Sodium Potassium Chloride Carbon Dioxide BUN Creatinine Glucose POC Glucose 131 H 141 H Lactic Acid Phosphorus Magnesium AST ALT Alkaline Phosphatase Ammonia Total Creatine Kinase CK-MB (CK-2) NT-Pro-B Natriuret Pep Total Protein Albumin Free T4 Urine Creatinine Urine Chloride Crossmatch 03/07/19 03/07/19 03/07/19 05:13 11:47 12:19 WBC RBC Hgb Hct MCH MCHC RDW Plt Count Lymph % (Auto) [place] # Seg Neutrophils % Seg Neuts % (Manual) Lymphocytes % (Manual) Nucleated RBC % Seg Neutrophils # Seg Neutrophils # Man Lymphocytes # (Manual) Monocytes # (Manual) INR D-Dimer POC ABG pH ABG pH POC ABG pCO2 POC ABG pO2 ABG pO2 ABG HCO3 ABG O2 Saturation ABG Base Excess ABG Hemoglobin Oxyhemoglobin Sodium Potassium Chloride Carbon Dioxide BUN Creatinine Glucose POC Glucose 122 H 128 H 132 H Lactic Acid Phosphorus Magnesium AST ALT Alkaline Phosphatase Ammonia Total Creatine Kinase CK-MB (CK-2) NT-Pro-B Natriuret Pep Total Protein Albumin Free T4 Urine Creatinine Urine Chloride Crossmatch 03/07/19 03/07/19 03/07/19 16:19 17:45 23:14 WBC RBC Hgb Hct MCH MCHC RDW Plt Count Lymph % (Auto) [place] # Seg Neutrophils % Seg Neuts % (Manual) Lymphocytes % (Manual) Nucleated RBC % Seg Neutrophils # Seg Neutrophils # Man Lymphocytes # (Manual) Monocytes # (Manual) INR D-Dimer POC ABG pH 7.246 L ABG pH POC ABG pCO2 65.2 H POC ABG pO2 69 L ABG pO2 ABG HCO3 ABG O2 Saturation ABG Base Excess ABG Hemoglobin Oxyhemoglobin Sodium Potassium Chloride Carbon Dioxide BUN Creatinine Glucose POC Glucose 159 H 152 H Lactic Acid Phosphorus Magnesium AST ALT Alkaline Phosphatase Ammonia Total Creatine Kinase CK-MB (CK-2) NT-Pro-B Natriuret Pep Total Protein Albumin Free T4 Urine Creatinine Urine Chloride Crossmatch 03/08/19 03/08/19 03/08/19 04:09 04:51 06:30 WBC 27.8 H RBC 3.35 L Hgb 7.9 L Hct 27.0 L MCH 24 L MCHC 29 L RDW 23.0 H Plt Count Lymph % (Auto) [place] # Seg Neutrophils % Seg Neuts % (Manual) 91.0 H Lymphocytes % (Manual) 4.0 L Nucleated RBC % 5.0 H Seg Neutrophils # Seg Neutrophils # Man 25.3 H Lymphocytes # (Manual) 1.1 L Monocytes # (Manual) 1.1 H INR D-Dimer POC ABG pH 7.155 L ABG pH POC ABG pCO2 POC ABG pO2 79 L ABG pO2 ABG HCO3 ABG O2 Saturation ABG Base Excess ABG Hemoglobin Oxyhemoglobin Sodium Potassium Chloride Carbon Dioxide BUN Creatinine Glucose POC Glucose 153 H Lactic Acid Phosphorus Magnesium AST ALT Alkaline Phosphatase Ammonia Total Creatine Kinase CK-MB (CK-2) NT-Pro-B Natriuret Pep Total Protein Albumin Free T4 Urine Creatinine Urine Chloride Crossmatch 03/08/19 03/08/19 03/08/19 06:30 09:29 12:13 WBC RBC Hgb Hct MCH MCHC RDW Plt Count Lymph % (Auto) [place] # Seg Neutrophils % Seg Neuts % (Manual) Lymphocytes % (Manual) Nucleated RBC % Seg Neutrophils # Seg Neutrophils # Man Lymphocytes # (Manual) Monocytes # (Manual) INR D-Dimer POC ABG pH 7.182 L ABG pH POC ABG pCO2 POC ABG pO2 77 L ABG pO2 ABG HCO3 ABG O2 Saturation ABG Base Excess ABG Hemoglobin Oxyhemoglobin Sodium Potassium 6.5 H* D Chloride Carbon Dioxide BUN 164 H Creatinine 3.3 H Glucose 141 H POC Glucose 133 H Lactic Acid Phosphorus Magnesium AST 543 H ALT 280 H Alkaline Phosphatase 641 H Ammonia Total Creatine Kinase CK-MB (CK-2) NT-Pro-B Natriuret Pep Total Protein 6.2 L Albumin 2.5 L Free T4 Urine Creatinine Urine Chloride Crossmatch 03/08/19 03/08/19 03/09/19 17:49 23:55 05:35 WBC RBC Hgb Hct MCH MCHC RDW Plt Count Lymph % (Auto) [place] # Seg Neutrophils % Seg Neuts % (Manual) Lymphocytes % (Manual) Nucleated RBC % Seg Neutrophils # Seg Neutrophils # Man Lymphocytes # (Manual) Monocytes # (Manual) INR D-Dimer POC ABG pH ABG pH POC ABG pCO2 POC ABG pO2 ABG pO2 ABG HCO3 ABG O2 Saturation ABG Base Excess ABG Hemoglobin Oxyhemoglobin Sodium Potassium Chloride Carbon Dioxide BUN Creatinine Glucose POC Glucose 159 H 136 H 134 H Lactic Acid Phosphorus Magnesium AST ALT Alkaline Phosphatase Ammonia Total Creatine Kinase CK-MB (CK-2) NT-Pro-B Natriuret Pep Total Protein Albumin Free T4 Urine Creatinine Urine Chloride Crossmatch 03/09/19 03/09/19 03/09/19 05:54 08:00 12:29 WBC RBC Hgb Hct MCH MCHC RDW Plt Count Lymph % (Auto) [place] # Seg Neutrophils % Seg Neuts % (Manual) Lymphocytes % (Manual) Nucleated RBC % Seg Neutrophils # Seg Neutrophils # Man Lymphocytes # (Manual) Monocytes # (Manual) INR D-Dimer POC ABG pH 7.160 L ABG pH POC ABG pCO2 POC ABG pO2 ABG pO2 ABG HCO3 ABG O2 Saturation ABG Base Excess ABG Hemoglobin Oxyhemoglobin Sodium Potassium 5.6 H Chloride 95.5 L Carbon Dioxide BUN 98 H Creatinine 2.7 H Glucose 143 H POC Glucose 144 H Lactic Acid Phosphorus Magnesium AST ALT Alkaline Phosphatase Ammonia Total Creatine Kinase CK-MB (CK-2) NT-Pro-B Natriuret Pep Total Protein Albumin Free T4 Urine Creatinine Urine Chloride Crossmatch 03/09/19 03/09/19 03/09/19 13:25 18:19 23:51 WBC RBC Hgb Hct MCH MCHC RDW Plt Count Lymph % (Auto) [place] # Seg Neutrophils % Seg Neuts % (Manual) Lymphocytes % (Manual) Nucleated RBC % Seg Neutrophils # Seg Neutrophils # Man Lymphocytes # (Manual) Monocytes # (Manual) INR D-Dimer POC ABG pH 7.184 L ABG pH POC ABG pCO2 POC ABG pO2 65 L ABG pO2 ABG HCO3 ABG O2 Saturation ABG Base Excess ABG Hemoglobin Oxyhemoglobin Sodium Potassium Chloride Carbon Dioxide BUN Creatinine Glucose POC Glucose 163 H 157 H Lactic Acid Phosphorus Magnesium AST ALT Alkaline Phosphatase Ammonia Total Creatine Kinase CK-MB (CK-2) NT-Pro-B Natriuret Pep Total Protein Albumin Free T4 Urine Creatinine Urine Chloride Crossmatch 03/10/19 03/10/19 03/10/19 03:55 05:48 11:47 WBC RBC Hgb Hct MCH MCHC RDW Plt Count Lymph % (Auto) [place] # Seg Neutrophils % Seg Neuts % (Manual) Lymphocytes % (Manual) Nucleated RBC % Seg Neutrophils # Seg Neutrophils # Man Lymphocytes # (Manual) Monocytes # (Manual) INR D-Dimer POC ABG pH 7.187 L ABG pH POC ABG pCO2 > 70 H POC ABG pO2 76 L ABG pO2 ABG HCO3 ABG O2 Saturation ABG Base Excess ABG Hemoglobin Oxyhemoglobin Sodium Potassium Chloride Carbon Dioxide BUN Creatinine Glucose POC Glucose 141 H 151 H Lactic Acid Phosphorus Magnesium AST ALT Alkaline Phosphatase Ammonia Total Creatine Kinase CK-MB (CK-2) NT-Pro-B Natriuret Pep Total Protein Albumin Free T4 Urine Creatinine Urine Chloride Crossmatch Chest x-ray: image reviewed (persistent bilateral infiltrates) Allied health notes reviewed: RT
[2019-03-10] MEDS: METOCLOPRAMIDE 10 MG/2 ML INJ IV SCH ×2 (18:54→23:46)
[2019-03-10] MEDS: NORepinephrine/NS 4 MG-250 ML 4 MG/250 ML BAG IV SCH (21:52)
[2019-03-11] MEDS: INSULIN LISPRO 100 UNIT/ML SUB-Q SCH ×4 (00:20→18:50)
[2019-03-11] MEDS: fentaNYL DRIP Premix 2,000 MCG/100 ML BAG IV SCH ×3 (03:47→18:04)
[2019-03-11] MEDS: PROPOFOL 1,000 MG/100 ML BOTTLE IV SCH ×3 (04:08→22:11)
[2019-03-11] MEDS: methylPREDNISolone Sod Succinate 40 MG/1 ML INJ IV SCH ×2 (05:49→21:18)
[2019-03-11] MEDS: NORepinephrine/NS 4 MG-250 ML 4 MG/250 ML BAG IV SCH ×3 (06:03→23:09)
[2019-03-11] MEDS: IPRATROPIUM/ALBUTEROL SULFATE 3 ML AMPUL.NEB IH SCH ×3 (08:01→20:22)
[2019-03-11] MEDS: SODIUM BICARBONATE 150 MEQ in DEXTROSE 5% IN WATER 1,000 ML IV SCH (08:12)
--- NOTE | 2019-03-11 08:12 | Progress Note ---
Assessment and Plan - Acute respiratory failure with hypoxia. Intubated and on MVS 03/01/19 Pulmonary following - Sepsis with shock. Continue per ID recommendation. Continue IV Meropenem, - Acute kidney injury. Etiology likely secondary to prerenal injury/ATN from sepsis/ARDS. Nephrology reports that patient would not be an ideal candidate for renal re placement initiation considering her other underlying comorbidities, especially metastatic breast cancer - Hyperkalemia. Etiology secondary to above. Patient received D50, IV insulin, bicarb IVP, IV lasix 80mg once. Also, nephrology initiated bicarb gtt at 50ml/hr. if hyperkalemia is refractory to medical treatment will need to discuss renal replacement therapy with family, however pt with overall poor prognosis and would not be an ideal candidate for correction HD. - Bilateral pneumonia Throacentesis culture 02/28/19 - no growth, no orgs on gram stain. 03/02/2019 sputum: gianfranco albicans ID following - Recurrent malignant pleural effusion s/p thoracentesis - Left breast cancer with mets to the bones and liver s/p surgery Dr. Self following [facility]. -Heart failure Echocardiogram revealed left ventricular size normal with no pericardial effusion Shock liver -Elevated LFTs and alkaline phosphatase. Right upper quadrant ultrasound pending - Hyperammonemia Cont lactulose as needed - Hypernatrmia Free water via [place] - Hypertension Monitor BP - ELevated D- dimer CT angio was negative for PE - Poor prognosis. The high probability of a clinically significant, sudden or life threatening deterioration of the [respiratory neurological] system(s) required my full and direct attention, intervention and personal management. The aggregate critical care time was [31] minutes. This time is in addition to time spent performing reported procedures but includes the following: [x] Data Review and interpretation [x] Patient assessment and monitoring of vital signs [x] Documentation [x] Medication orders and management Subjective Date of service: 03/11/19 Principal diagnosis: Ac. hypoxemic resp failure; Sev Sepsis; R. pleural effusion; Met. breast CA Objective - Constitutional Vitals: Vital Signs - 12hr 03/10/19 03/10/19 03/10/19 20:15 20:22 20:30 Temperature Pulse Rate 116 H 117 H 120 H Pulse Rate [ 118 H Anterior Throughout] Pulse Rate [ From Monitor] Respiratory 35 H 32 H Rate Respiratory 35 H Rate [Anterior Throughout] Blood Pressure 114/55 114/55 112/56 O2 Sat by Pulse 100 Oximetry 03/10/19 03/10/19 03/10/19 20:45 21:00 21:16 Temperature Pulse Rate 119 H 119 H 118 H Pulse Rate [ Anterior Throughout] Pulse Rate [ From Monitor] Respiratory 28 H 35 H 35 H Rate Respiratory Rate [Anterior Throughout] Blood Pressure 115/51 105/45 110/52 O2 Sat by Pulse Oximetry 03/10/19 03/10/19 03/10/19 21:30 21:45 22:00 Temperature Pulse Rate 118 H 113 H 107 H Pulse Rate [ Anterior Throughout] Pulse Rate [ From Monitor] Respiratory 35 H 35 H 27 H Rate Respiratory Rate [Anterior Throughout] Blood Pressure 111/51 117/54 126/56 O2 Sat by Pulse 100 96 Oximetry 03/10/19 03/10/19 03/10/19 22:15 22:30 22:45 Temperature Pulse Rate 107 H 111 H 112 H Pulse Rate [ Anterior Throughout] Pulse Rate [ From Monitor] Respiratory 29 H 29 H 31 H Rate Respiratory Rate [Anterior Throughout] Blood Pressure 118/56 118/56 119/53 O2 Sat by Pulse 96 97 Oximetry 03/10/19 03/10/19 03/10/19 23:00 23:10 23:11 Temperature 98.8 F Pulse Rate 109 H 112 H Pulse Rate [ Anterior Throughout] Pulse Rate [ From Monitor] Respiratory 24 26 H Rate Respiratory Rate [Anterior Throughout] Blood Pressure 111/55 111/55 O2 Sat by Pulse 96 97 Oximetry 03/10/19 03/10/19 03/10/19 23:15 23:30 23:45 Temperature Pulse Rate 108 H 109 H 106 H Pulse Rate [ Anterior Throughout] Pulse Rate [ From Monitor] Respiratory 21 23 18 Rate Respiratory Rate [Anterior Throughout] Blood Pressure 110/54 115/50 118/52 O2 Sat by Pulse 95 96 Oximetry 03/11/19 03/11/19 03/11/19 00:00 00:15 00:30 Temperature Pulse Rate 114 H 115 H 115 H Pulse Rate [ Anterior Throughout] Pulse Rate [ 114 H From Monitor] Respiratory 25 H 36 H 21 Rate Respiratory Rate [Anterior Throughout] Blood Pressure 114/49 110/50 111/49 O2 Sat by Pulse 96 95 95 Oximetry 03/11/19 03/11/19 03/11/19 00:45 00:54 01:00 Temperature Pulse Rate 113 H 112 H 110 H Pulse Rate [ Anterior Throughout] Pulse Rate [ From Monitor] Respiratory 35 H 16 Rate Respiratory Rate [Anterior Throughout] Blood Pressure 116/50 116/50 117/54 O2 Sat by Pulse 97 96 92 Oximetry 03/11/19 03/11/19 03/11/19 01:15 01:30 01:45 Temperature Pulse Rate 111 H 111 H 110 H Pulse Rate [ Anterior Throughout] Pulse Rate [ From Monitor] Respiratory 17 18 16 Rate Respiratory Rate [Anterior Throughout] Blood Pressure 121/55 123/55 122/55 O2 Sat by Pulse 96 95 90 Oximetry 03/11/19 03/11/19 03/11/19 02:00 02:15 02:30 Temperature Pulse Rate 115 H 111 H 116 H Pulse Rate [ Anterior Throughout] Pulse Rate [ From Monitor] Respiratory 16 20 33 H Rate Respiratory Rate [Anterior Throughout] Blood Pressure 123/53 119/51 124/55 O2 Sat by Pulse 91 91 89 Oximetry 03/11/19 03/11/19 03/11/19 02:45 03:00 03:08 Temperature 98.2 F Pulse Rate 117 H 114 H Pulse Rate [ Anterior Throughout] Pulse Rate [ From Monitor] Respiratory 22 38 H Rate Respiratory Rate [Anterior Throughout] Blood Pressure 118/56 121/56 O2 Sat by Pulse 92 91 Oximetry 03/11/19 03/11/19 03/11/19 03:15 03:30 03:32 Temperature Pulse Rate 112 H 112 H 113 H Pulse Rate [ Anterior Throughout] Pulse Rate [ From Monitor] Respiratory 21 19 Rate Respiratory Rate [Anterior Throughout] Blood Pressure 113/52 113/50 113/50 O2 Sat by Pulse 91 97 Oximetry 03/11/19 03/11/19 03/11/19 03:45 04:00 04:15 Temperature Pulse Rate 105 H 117 H 112 H Pulse Rate [ Anterior Throughout] Pulse Rate [ 119 H From Monitor] Respiratory 35 H 36 H 21 Rate Respiratory Rate [Anterior Throughout] Blood Pressure 111/46 107/50 112/51 O2 Sat by Pulse 98 98 92 Oximetry 03/11/19 03/11/19 03/11/19 04:30 04:45 05:00 Temperature Pulse Rate 116 H 108 H 109 H Pulse Rate [ Anterior Throughout] Pulse Rate [ From Monitor] Respiratory 35 H 26 H 32 H Rate Respiratory Rate [Anterior Throughout] Blood Pressure 110/52 117/54 113/45 O2 Sat by Pulse 92 92 92 Oximetry 03/11/19 03/11/19 03/11/19 05:15 05:30 05:45 Temperature Pulse Rate 113 H 113 H 88 Pulse Rate [ Anterior Throughout] Pulse Rate [ From Monitor] Respiratory 36 H 37 H 25 H Rate Respiratory Rate [Anterior Throughout] Blood Pressure 107/50 118/48 115/48 O2 Sat by Pulse 92 92 90 Oximetry 03/11/19 03/11/19 03/11/19 06:00 06:15 06:30 Temperature Pulse Rate 117 H 116 H 114 H Pulse Rate [ Anterior Throughout] Pulse Rate [ From Monitor] Respiratory 27 H 35 H 36 H Rate Respiratory Rate [Anterior Throughout] Blood Pressure 110/50 101/46 96/44 O2 Sat by Pulse 93 93 94 Oximetry 03/11/19 03/11/19 03/11/19 06:45 07:00 07:38 Temperature Pulse Rate 116 H 115 H 116 H Pulse Rate [ Anterior Throughout] Pulse Rate [ From Monitor] Respiratory 29 H 28 H Rate Respiratory Rate [Anterior Throughout] Blood Pressure 103/45 87/44 99/44 O2 Sat by Pulse 93 88 93 Oximetry General appearance: Present: mild distress, well-nourished - EENT Eyes: PERRL, EOM intact ENT: hearing intact, clear oral mucosa Ears: bilateral: normal - Neck Neck: supple, normal ROM - Respiratory Respiratory effort: normal Respiratory: bilateral: CTA - Breasts Breasts: normal - Cardiovascular Heart rate: 78 Rhythm: regular Heart Sounds: Present: S1 & S2. Absent: gallop, rub Extremities: no ischemia, pulses intact, No edema, normal color, Full ROM - Gastrointestinal General gastrointestinal: Present: soft, non-tender, non-distended, normal bowel sounds - Genitourinary Female genitourinary: normal - Integumentary Integumentary: clear, warm, dry - Musculoskeletal Musculoskeletal: generalized weakness - Neurologic Neurologic: moves all extremities - Psychiatric Psychiatric: other (Intubated) - Allied health notes Allied health notes reviewed: nursing, case management - Labs CBC & Chem 7: 03/08/19 06:30 03/09/19 08:00 Labs: Abnormal lab results 03/10/19 03/10/19 03/10/19 Range/Units 03:55 11:47 18:19 POC ABG pH (7.35-7.45) POC ABG pCO2 > 70 H (35-45) POC ABG pO2 (80-105) POC Glucose 151 H 161 H (70-105) 03/10/19 03/10/19 03/11/19 Range/Units 21:28 23:45 03:51 POC ABG pH 7.275 L 7.252 L (7.35-7.45) POC ABG pCO2 (35-45) POC ABG pO2 71 L (80-105) POC Glucose 141 H (70-105) 03/11/19 Range/Units 05:33 POC ABG pH (7.35-7.45) POC ABG pCO2 (35-45) POC ABG pO2 (80-105) POC Glucose 205 H (70-105)
--- NOTE | 2019-03-11 08:22 | Progress Note ---
Assessment and Plan - Acute respiratory failure with hypoxia. Intubated and on MVS 03/01/19 Pulmonary following AC and PC with FIO2 of 80 percent - Sepsis with shock. Continue per ID recommendation. Continue IV Meropenem, - Acute kidney injury. Etiology likely secondary to prerenal injury/ATN from sepsis/ARDS. Nephrology reports that patient would not be an ideal candidate for renal replacement initiation considering her other underlying comorbidities, especially metastatic breast cancer - Hyperkalemia. Etiology secondary to above. Patient received D50, IV insulin, bicarb IVP, IV lasix 80mg once. Also, nephrology initiated bicarb gtt at 50ml/hr. if hyperkalemia is refractory to medical treatment will need to discuss renal replacement therapy with family, however pt with overall poor prognosis and would not be an ideal candidate for senior living HD. - Bilateral pneumonia Throacentesis culture 02/28/19 - no growth, no orgs on gram stain. 03/02/2019 sputum: gianfranco albicans ID following - Recurrent malignant pleural effusion s/p thoracentesis - Left breast cancer with mets to the bones and liver s/p surgery Dr. Self following Local Wound care. -Heart failure Echocardiogram revealed left ventricular size normal with no pericardial effusion Shock liver -Elevated LFTs and alkaline phosphatase. Right upper quadrant ultrasound pending - Hyperammonemia Cont lactulose as needed - Hypernatrmia Free water via [place] - Hypertension Monitor BP - ELevated D- dimer CT angio was negative for PE - Poor prognosis. The high probability of a clinically significant, sudden or life threatening deterioration of the [respiratory neurological] system(s) required my full and direct attention, intervention and personal management. The aggregate critical care time was [31] minutes. This time is in addition to time spent performing reported procedures but includes the following: [x] Data Review and interpretation [x] Patient assessment and monitoring of vital signs [x] Documentation [x] Medication orders and management Subjective Date of service: 03/11/19 Principal diagnosis: Ac. hypoxemic resp failure; Sev Sepsis; R. pleural effusion; Met. breast CA Interval history: Ac. hypoxemic resp failure; Sev Sepsis; R. pleural effusion; Met. breast CA Patient seen lying in bed. Intubated on ventilator. AC/PC Rate 35/80% FIO2 PEEP of 14. Off of Levophed. On fentanyl Objective - Constitutional Vitals: Vital Signs - 12hr 03/10/19 03/10/19 03/10/19 20:22 20:30 20:45 Temperature Pulse Rate 117 H 120 H 119 H Pulse Rate [ 118 H Anterior Throughout] Pulse Rate [ From Monitor] Respiratory 32 H 28 H Rate Respiratory 35 H Rate [Anterior Throughout] Blood Pressure 114/55 112/56 115/51 O2 Sat by Pulse 100 Oximetry 03/10/19 03/10/19 03/10/19 21:00 21:16 21:30 Temperature Pulse Rate 119 H 118 H 118 H Pulse Rate [ Anterior Throughout] Pulse Rate [ From Monitor] Respiratory 35 H 35 H 35 H Rate Respiratory Rate [Anterior Throughout] Blood Pressure 105/45 110/52 111/51 O2 Sat by Pulse Oximetry 03/10/19 03/10/19 03/10/19 21:45 22:00 22:15 Temperature Pulse Rate 113 H 107 H 107 H Pulse Rate [ Anterior Throughout] Pulse Rate [ From Monitor] Respiratory 35 H 27 H 29 H Rate Respiratory Rate [Anterior Throughout] Blood Pressure 117/54 126/56 118/56 O2 Sat by Pulse 100 96 96 Oximetry 03/10/19 03/10/19 03/10/19 22:30 22:45 23:00 Temperature Pulse Rate 111 H 112 H 109 H Pulse Rate [ Anterior Throughout] Pulse Rate [ From Monitor] Respiratory 29 H 31 H 24 Rate Respiratory Rate [Anterior Throughout] Blood Pressure 118/56 119/53 111/55 O2 Sat by Pulse 97 96 Oximetry 03/10/19 03/10/19 03/10/19 23:10 23:11 23:15 Temperature 98.8 F Pulse Rate 112 H 108 H Pulse Rate [ Anterior Throughout] Pulse Rate [ From Monitor] Respiratory 26 H 21 Rate Respiratory Rate [Anterior Throughout] Blood Pressure 111/55 110/54 O2 Sat by Pulse 97 Oximetry 03/10/19 03/10/19 03/11/19 23:30 23:45 00:00 Temperature Pulse Rate 109 H 106 H 114 H Pulse Rate [ Anterior Throughout] Pulse Rate [ 114 H From Monitor] Respiratory 23 18 25 H Rate Respiratory Rate [Anterior Throughout] Blood Pressure 115/50 118/52 114/49 O2 Sat by Pulse 95 96 96 Oximetry 03/11/19 03/11/19 03/11/19 00:15 00:30 00:45 Temperature Pulse Rate 115 H 115 H 113 H Pulse Rate [ Anterior Throughout] Pulse Rate [ From Monitor] Respiratory 36 H 21 35 H Rate Respiratory Rate [Anterior Throughout] Blood Pressure 110/50 111/49 116/50 O2 Sat by Pulse 95 95 97 Oximetry 03/11/19 03/11/19 03/11/19 00:54 01:00 01:15 Temperature Pulse Rate 112 H 110 H 111 H Pulse Rate [ Anterior Throughout] Pulse Rate [ From Monitor] Respiratory 16 17 Rate Respiratory Rate [Anterior Throughout] Blood Pressure 116/50 117/54 121/55 O2 Sat by Pulse 96 92 96 Oximetry 03/11/19 03/11/19 03/11/19 01:30 01:45 02:00 Temperature Pulse Rate 111 H 110 H 115 H Pulse Rate [ Anterior Throughout] Pulse Rate [ From Monitor] Respiratory 18 16 16 Rate Respiratory Rate [Anterior Throughout] Blood Pressure 123/55 122/55 123/53 O2 Sat by Pulse 95 90 91 Oximetry 03/11/19 03/11/19 03/11/19 02:15 02:30 02:45 Temperature Pulse Rate 111 H 116 H 117 H Pulse Rate [ Anterior Throughout] Pulse Rate [ From Monitor] Respiratory 20 33 H 22 Rate Respiratory Rate [Anterior Throughout] Blood Pressure 119/51 124/55 118/56 O2 Sat by Pulse 91 89 92 Oximetry 03/11/19 03/11/19 03/11/19 03:00 03:08 03:15 Temperature 98.2 F Pulse Rate 114 H 112 H Pulse Rate [ Anterior Throughout] Pulse Rate [ From Monitor] Respiratory 38 H 21 Rate Respiratory Rate [Anterior Throughout] Blood Pressure 121/56 113/52 O2 Sat by Pulse 91 91 Oximetry 03/11/19 03/11/19 03/11/19 03:30 03:32 03:45 Temperature Pulse Rate 112 H 113 H 105 H Pulse Rate [ Anterior Throughout] Pulse Rate [ From Monitor] Respiratory 19 35 H Rate Respiratory Rate [Anterior Throughout] Blood Pressure 113/50 113/50 111/46 O2 Sat by Pulse 97 98 Oximetry 03/11/19 03/11/19 03/11/19 04:00 04:15 04:30 Temperature Pulse Rate 117 H 112 H 116 H Pulse Rate [ Anterior Throughout] Pulse Rate [ 119 H From Monitor] Respiratory 36 H 21 35 H Rate Respiratory Rate [Anterior Throughout] Blood Pressure 107/50 112/51 110/52 O2 Sat by Pulse 98 92 92 Oximetry 03/11/19 03/11/19 03/11/19 04:45 05:00 05:15 Temperature Pulse Rate 108 H 109 H 113 H Pulse Rate [ Anterior Throughout] Pulse Rate [ From Monitor] Respiratory 26 H 32 H 36 H Rate Respiratory Rate [Anterior Throughout] Blood Pressure 117/54 113/45 107/50 O2 Sat by Pulse 92 92 92 Oximetry 03/11/19 03/11/19 03/11/19 05:30 05:45 06:00 Temperature Pulse Rate 113 H 88 117 H Pulse Rate [ Anterior Throughout] Pulse Rate [ From Monitor] Respiratory 37 H 25 H 27 H Rate Respiratory Rate [Anterior Throughout] Blood Pressure 118/48 115/48 110/50 O2 Sat by Pulse 92 90 93 Oximetry 03/11/19 03/11/19 03/11/19 06:15 06:30 06:45 Temperature Pulse Rate 116 H 114 H 116 H Pulse Rate [ Anterior Throughout] Pulse Rate [ From Monitor] Respiratory 35 H 36 H 29 H Rate Respiratory Rate [Anterior Throughout] Blood Pressure 101/46 96/44 103/45 O2 Sat by Pulse 93 94 93 Oximetry 03/11/19 03/11/19 03/11/19 07:00 07:38 07:58 Temperature Pulse Rate 115 H 116 H Pulse Rate [ 114 H Anterior Throughout] Pulse Rate [ From Monitor] Respiratory 28 H Rate Respiratory 35 H Rate [Anterior Throughout] Blood Pressure 87/44 99/44 O2 Sat by Pulse 88 93 Oximetry General appearance: Present: mild distress, well-nourished - EENT Eyes: PERRL, EOM intact ENT: hearing intact, clear oral mucosa Ears: bilateral: normal - Neck Neck: supple, normal ROM - Respiratory Respiratory effort: normal Respiratory: bilateral: diminished, rhonchi - Breasts Breasts: normal - Cardiovascular Heart rate: 112 Rhythm: regular Heart Sounds: Present: S1 & S2. Absent: gallop, rub Extremities: pulses intact, No edema, normal color, Full ROM - Gastrointestinal General gastrointestinal: Present: soft, non-tender, non-distended, normal bowel sounds - Genitourinary Female genitourinary: normal - Integumentary Integumentary: clear, warm, dry - Musculoskeletal Musculoskeletal: generalized weakness - Neurologic Neurologic: moves all extremities - Psychiatric Psychiatric: other (Intubated) - Labs CBC & Chem 7: 03/08/19 06:30 03/09/19 08:00 Labs: Abnormal lab results 03/10/19 03/10/19 03/10/19 Range/Units 03:55 11:47 18:19 POC ABG pH (7.35-7.45) POC ABG pCO2 > 70 H (35-45) POC ABG pO2 (80-105) POC Glucose 151 H 161 H (70-105) 03/10/19 03/10/19 03/11/19 Range/Units 21:28 23:45 03:51 POC ABG pH 7.275 L 7.252 L (7.35-7.45) POC ABG pCO2 (35-45) POC ABG pO2 71 L (80-105) POC Glucose 141 H (70-105) 03/11/19 Range/Units 05:33 POC ABG pH (7.35-7.45) POC ABG pCO2 (35-45) POC ABG pO2 (80-105) POC Glucose 205 H (70-105)
[2019-03-11] MEDS: METOCLOPRAMIDE 10 MG/2 ML INJ IV SCH ×2 (08:23→16:01)
--- NOTE | 2019-03-11 08:51 | Progress Note ---
Assessment and Plan - Patient Problems (1) SELAM (acute kidney injury) Current Visit: Yes Status: Acute Plan to address problem: Acute tubular necrosis in the setting of hypotension/sepsis. Patient is dialysis requiring. Hemodynamic instability however precluding hemodialysis today. Patient's prognosis is poor and family needs to consider switch to palliative care. No family around to discuss. Discussed with primary attending (2) Acute respiratory failure Current Visit: Yes Status: Acute Qualifiers: Respiratory failure complication: hypoxia Qualified Code(s): J96.01 - Acute respiratory failure with hypoxia Plan to address problem: Continue ventilator management by pulmonary (3) Anasarca Current Visit: Yes Status: Acute Plan to address problem: Fluid removal with dialysis. Reevaluate (4) Anemia Current Visit: Yes Status: Acute Qualifiers: Anemia type: unspecified type Qualified Code(s): D64.9 - Anemia, unspecified Plan to address problem: Give Erythropoetin on dialysis. (5) Hyperkalemia Current Visit: Yes Status: Acute Plan to address problem: Improved with dialysis. (6) Metastatic breast cancer Current Visit: Yes Status: Chronic Plan to address problem: Continue management by oncologist (7) Pneumonia Current Visit: Yes Status: Suspected Qualifiers: Pneumonia type: due to unspecified organism Laterality: bilateral Lung location: unspecified part of lung Qualified Code(s): J18.9 - Pneumonia, unspecified organism Plan to address problem: Continue antibiotics per infectious disease appropriately dosed to the degree of renal function Subjective Date of service: 03/11/19 Principal diagnosis: Ac. hypoxemic resp failure; Sev Sepsis; R. pleural effusion; Met. breast CA Interval history: Patient seen lying in bed. Intubated on ventilator. Fi O2/85% PEEP of 14. On Levophed. On Diprivan and fentanyl Objective - Exam Narrative Exam: Obese middle-aged -German female lying in bed intubated on ventilator HEENT: NCAT, pink oral mucous membrane Neck: Supple, no venous distention CVS: S1S2 RRR with no murmur, rub or gallop Chest: Diminished breath sounds Abdomen: Obese soft, nontender, no organomegaly, bowel sounds are present Extremities: 2-3+ edema Neuro: Sedated on ventilator - Vital Signs Vital signs: Vital Signs - 12hr 03/10/19 03/10/19 03/10/19 21:00 21:16 21:30 Temperature Pulse Rate 119 H 118 H 118 H Pulse Rate [ Anterior Throughout] Pulse Rate [ From Monitor] Respiratory 35 H 35 H 35 H Rate Respiratory Rate [Anterior Throughout] Blood Pressure 105/45 110/52 111/51 O2 Sat by Pulse Oximetry 03/10/19 03/10/19 03/10/19 21:45 22:00 22:15 Temperature Pulse Rate 113 H 107 H 107 H Pulse Rate [ Anterior Throughout] Pulse Rate [ From Monitor] Respiratory 35 H 27 H 29 H Rate Respiratory Rate [Anterior Throughout] Blood Pressure 117/54 126/56 118/56 O2 Sat by Pulse 100 96 96 Oximetry 03/10/19 03/10/19 03/10/19 22:30 22:45 23:00 Temperature Pulse Rate 111 H 112 H 109 H Pulse Rate [ Anterior Throughout] Pulse Rate [ From Monitor] Respiratory 29 H 31 H 24 Rate Respiratory Rate [Anterior Throughout] Blood Pressure 118/56 119/53 111/55 O2 Sat by Pulse 97 96 Oximetry 03/10/19 03/10/19 03/10/19 23:10 23:11 23:15 Temperature 98.8 F Pulse Rate 112 H 108 H Pulse Rate [ Anterior Throughout] Pulse Rate [ From Monitor] Respiratory 26 H 21 Rate Respiratory Rate [Anterior Throughout] Blood Pressure 111/55 110/54 O2 Sat by Pulse 97 Oximetry 03/10/19 03/10/19 03/11/19 23:30 23:45 00:00 Temperature Pulse Rate 109 H 106 H 114 H Pulse Rate [ Anterior Throughout] Pulse Rate [ 114 H From Monitor] Respiratory 23 18 25 H Rate Respiratory Rate [Anterior Throughout] Blood Pressure 115/50 118/52 114/49 O2 Sat by Pulse 95 96 96 Oximetry 03/11/19 03/11/19 03/11/19 00:15 00:30 00:45 Temperature Pulse Rate 115 H 115 H 113 H Pulse Rate [ Anterior Throughout] Pulse Rate [ From Monitor] Respiratory 36 H 21 35 H Rate Respiratory Rate [Anterior Throughout] Blood Pressure 110/50 111/49 116/50 O2 Sat by Pulse 95 95 97 Oximetry 03/11/19 03/11/19 03/11/19 00:54 01:00 01:15 Temperature Pulse Rate 112 H 110 H 111 H Pulse Rate [ Anterior Throughout] Pulse Rate [ From Monitor] Respiratory 16 17 Rate Respiratory Rate [Anterior Throughout] Blood Pressure 116/50 117/54 121/55 O2 Sat by Pulse 96 92 96 Oximetry 03/11/19 03/11/19 03/11/19 01:30 01:45 02:00 Temperature Pulse Rate 111 H 110 H 115 H Pulse Rate [ Anterior Throughout] Pulse Rate [ From Monitor] Respiratory 18 16 16 Rate Respiratory Rate [Anterior Throughout] Blood Pressure 123/55 122/55 123/53 O2 Sat by Pulse 95 90 91 Oximetry 03/11/19 03/11/19 03/11/19 02:15 02:30 02:45 Temperature Pulse Rate 111 H 116 H 117 H Pulse Rate [ Anterior Throughout] Pulse Rate [ From Monitor] Respiratory 20 33 H 22 Rate Respiratory Rate [Anterior Throughout] Blood Pressure 119/51 124/55 118/56 O2 Sat by Pulse 91 89 92 Oximetry 03/11/19 03/11/19 03/11/19 03:00 03:08 03:15 Temperature 98.2 F Pulse Rate 114 H 112 H Pulse Rate [ Anterior Throughout] Pulse Rate [ From Monitor] Respiratory 38 H 21 Rate Respiratory Rate [Anterior Throughout] Blood Pressure 121/56 113/52 O2 Sat by Pulse 91 91 Oximetry 03/11/19 03/11/19 03/11/19 03:30 03:32 03:45 Temperature Pulse Rate 112 H 113 H 105 H Pulse Rate [ Anterior Throughout] Pulse Rate [ From Monitor] Respiratory 19 35 H Rate Respiratory Rate [Anterior Throughout] Blood Pressure 113/50 113/50 111/46 O2 Sat by Pulse 97 98 Oximetry 03/11/19 03/11/19 03/11/19 04:00 04:15 04:30 Temperature Pulse Rate 117 H 112 H 116 H Pulse Rate [ Anterior Throughout] Pulse Rate [ 119 H From Monitor] Respiratory 36 H 21 35 H Rate Respiratory Rate [Anterior Throughout] Blood Pressure 107/50 112/51 110/52 O2 Sat by Pulse 98 92 92 Oximetry 03/11/19 03/11/19 03/11/19 04:45 05:00 05:15 Temperature Pulse Rate 108 H 109 H 113 H Pulse Rate [ Anterior Throughout] Pulse Rate [ From Monitor] Respiratory 26 H 32 H 36 H Rate Respiratory Rate [Anterior Throughout] Blood Pressure 117/54 113/45 107/50 O2 Sat by Pulse 92 92 92 Oximetry 03/11/19 03/11/19 03/11/19 05:30 05:45 06:00 Temperature Pulse Rate 113 H 88 117 H Pulse Rate [ Anterior Throughout] Pulse Rate [ From Monitor] Respiratory 37 H 25 H 27 H Rate Respiratory Rate [Anterior Throughout] Blood Pressure 118/48 115/48 110/50 O2 Sat by Pulse 92 90 93 Oximetry 03/11/19 03/11/19 03/11/19 06:15 06:30 06:45 Temperature Pulse Rate 116 H 114 H 116 H Pulse Rate [ Anterior Throughout] Pulse Rate [ From Monitor] Respiratory 35 H 36 H 29 H Rate Respiratory Rate [Anterior Throughout] Blood Pressure 101/46 96/44 103/45 O2 Sat by Pulse 93 94 93 Oximetry 03/11/19 03/11/19 03/11/19 07:00 07:38 07:58 Temperature Pulse Rate 115 H 116 H Pulse Rate [ 114 H Anterior Throughout] Pulse Rate [ From Monitor] Respiratory 28 H Rate Respiratory 35 H Rate [Anterior Throughout] Blood Pressure 87/44 99/44 O2 Sat by Pulse 88 93 Oximetry 03/11/19 08:00 Temperature 100.5 F H Pulse Rate Pulse Rate [ Anterior Throughout] Pulse Rate [ From Monitor] Respiratory Rate Respiratory Rate [Anterior Throughout] Blood Pressure O2 Sat by Pulse Oximetry - Lab 03/08/19 06:30 03/11/19 09:44 Most recent lab results ABG pH 7.335 pH Units (7.350-7.450) L 03/03/19 05:25 ABG pCO2 61.3 mm Hg 03/03/19 05:25 ABG pO2 89.2 mm Hg (80.0-90.0) 03/03/19 05:25 ABG HCO3 32.0 mmol/L (20.0-26.0) H 03/03/19 05:25 ABG O2 Saturation 97.0 % (95.0-99.0) 03/03/19 05:25 Calcium 8.5 mg/dL (8.4-10.2) 03/09/19 08:00 Phosphorus 3.30 mg/dL (2.5-4.5) D 03/03/19 05:00 Magnesium 2.90 mg/dL (1.7-2.3) H 03/03/19 05:00 Urine Creatinine 185.9 mg/dL (0.1-20.0) H 03/04/19 12:39 Urine Sodium 13 mmol/L 03/04/19 12:39 Medications & Allergies - Medications Allergies/Adverse Reactions: Allergies aspirin Adverse Reaction (Verified 01/28/19 12:25) GI Upset Home Medications: Home Medications Medication Instructions Recorded Confirmed Last Taken Type amLODIPine 5 mg PO DAILY 01/27/19 02/27/19 02/15/19 10:00 History Albuterol Sulfate [Proventil Hfa] 6.7 gm IH Q6H PRN #1 can 02/11/19 02/27/19 02/15/19 15:00 Rx Clindamycin [Clindamycin CAP] 300 mg PO Q8H #21 cap 02/11/19 02/27/19 02/15/19 10:00 Rx oxyCODONE [roxiCODONE] 10 mg PO Q6HR PRN 02/15/19 02/27/19 Unknown History Budesonide/Formoterol Fumarate 2 puff IH BID #1 hfa.aer.[email or web address] 02/19/19 02/27/19 Unknown Rx [Symbicort 160-4.5 Mcg Inhaler] HYDROcodone/APAP 10-325 [[place] 1 each PO Q6HR PRN #30 tablet 02/19/19 02/27/19 Unknown Rx 10/325] cephALEXin [Keflex] 500 mg PO Q6HR #40 capsule 02/19/19 02/27/19 Unknown Rx Active Medications: Generic Name Dose Route Start Last Admin Trade Name Freq PRN Reason Stop Dose Admin Acetaminophen 650 mg 03/02/19 13:46 03/02/19 15:38 Tylenol PO 650 mg Q6H PRN Administration Fever >101 Albuterol 2.5 mg 02/27/19 21:08 02/28/19 12:35 Proventil IH 2.5 mg Q4HRT PRN Administration Shortness Of Breath Albuterol/Ipratropium 1 ampul 02/28/19 08:00 03/11/19 08:01 Duoneb *Not For Prn Use* IH 1 ampul TIDRT MANISH Administration Lipase/Protease/Amylase 1 each 03/03/19 08:54 Kaley Zamora 10,500 Unit FEEDTUBE PRN PRN For Clogged Feeding Tube Enoxaparin Sodium 30 mg 03/04/19 10:00 03/10/19 09:29 Enoxaparin SUB-Q 30 mg QDAY MANISH Administration Famotidine 20 mg 03/10/19 10:00 03/10/19 09:28 Pepcid IV 20 mg QDAY MANISH Administration Hydrophilic Ointment 1 applic 03/02/19 04:40 Vaseline Lip Therapy TP Q2HR PRN Dry Lips Norepinephrine 4 mg in 250 mls @ 7.5 mls/hr 03/02/19 05:00 03/11/19 08:15 Levophed Drip 4 Mg/Ns 250 Ml IV 10 mcg/min TITR MANISH 37.5 mls/hr Titration Protocol 2 MCG/MIN Vasopressin 20 unit/ Sodium 101 mls @ 9.09 mls/hr 03/02/19 05:00 03/05/19 10:32 Chloride IV 0 units/min TITR MANISH 0 mls/hr Titration Protocol 0.03 UNITS/MIN Fentanyl Citrate 2,000 mcg in 100 mls @ 4.64 mls/hr 03/02/19 17:00 03/11/19 04:00 Fentanyl Drip Premix IV 3 mcg/kg/hr TITR MANISH 13.92 mls/hr Titration Protocol 1 MCG/KG/HR Propofol 1,000 mg in 100 mls @ 2.844 mls/hr 03/06/19 13:00 03/11/19 04:08 Diprivan 10 Mg/Ml IV 20 mcg/kg/min TITR MANISH 11.376 mls/hr Administration Protocol 5 MCG/KG/MIN Sodium Bicarbonate 150 meq/ 1,150 mls @ 100 mls/hr 03/08/19 11:00 03/11/19 08:12 Dextrose IV 100 mls/hr DIRECT MANISH Administration Sodium Chloride 100 mls @ 999 mls/hr 03/09/19 07:55 Nacl 0.9% IV [id number] PRN Hypotension Insulin Human Lispro 0 unit 03/04/19 13:00 03/11/19 05:49 Humalog SUB-Q 4 unit Q6HR MANISH Administration Protocol Lactulose 20 gm 03/02/19 10:00 03/10/19 21:34 Cephulac PO 20 gm Q12HR MANISH Administration Methylprednisolone Sodium Succinate 40 mg 03/05/19 14:00 03/11/19 05:49 Solu-Medrol IV 40 mg Q8HR MANISH Administration Metoclopramide HCl 10 mg 03/10/19 16:00 03/11/19 08:23 Reglan IV 10 mg Q8H MANISH Administration Multi-Ingred Cream/Lotion/Oil/Oint 1 applic 03/02/19 16:43 Artificial Tears Ophth Oint OU Q4HR PRN Dry Eye(s) Simple Syrup 15 ml 03/03/19 08:54 Simple Syrup FEEDTUBE PRN PRN Hypoglycemia Simple Syrup 30 ml 03/03/19 08:54 Simple Syrup FEEDTUBE PRN PRN Hypoglycemia Sodium Bicarbonate 325 mg 03/03/19 08:54 Sodium Bicarbonate FEEDTUBE PRN PRN For Clogged Feeding Tube
--- NOTE | 2019-03-11 09:40 | Progress Note ---
Assessment and Plan Acute hypoxemic-hypercapnic respiratory failure Sepsis, possible from left lung pneumonia Right pleural effusion Metastatic breast cancer Hypernatremia Poor medical compliance Obesity - discontinue Lawson catheter if OK with nephrology team - taper Solumedrol to 40 mg IV q12h - reduced FiO2 to 75% from 85% - continue PCV/AC mode - continue Reglan for GI motility - continue tubes feeds and advance back to goal - keep Peep at 14 cm H2O - continue to wean FIO2 for O2 sats >90% - continue Propofol gtt to improve tolerance / reduce dyssynchrony - bilateral lower extremity Doppler's negative for DVT - continue fentanyl gtt and titrate for RASS 0 to -1 - continue enteral nutrition at goal rate as tolerated - continue scopolamine patch for secretion control (+ Sue shin) - wean vasopressors for target MAP > 65 mmHg - continue daily SAT's and SBT assessment as tolerated in am - CT head on hold till more stable - continue lawson catheter in this critically ill patient with quickly progressing SELAM - VAP bundle addressed (Aspiration precautions, HOB > 40 degrees) - continue Lung protective strategies - continue bronchodilators with pulmonary hygiene per RT - daily CXR's & ABG's acutely - Azotemia per nephrology team - continue to avoid nephrotoxins and adjust all medications fro GFR and CrCL - continue enteral nutrition and advance to goal rate as tolerated (hold for tentative extubation) - continue agitation management / Pain management per CPOT - complete empiric antibiotics for PNA - continue VTE prophylaxis - continue stress ulcer prophylaxis with PPI - continue accuchecks with glycemic control for SSI (While critically ill target blood glucose of 140-180 mg/dL; avoid hypoglycemia) - Continue mobility protocol for pressure ulcer prevention - Continue to monitor hemodynamics closely - Monitor electrolyte profile closely and replete as indicated - continue chronic home medications per attending and as clinically indicated - s/p thoracentesis (1400 ml's drained); follow studies - Wound care per RN & WCT - continue Free water for hypernatremia - continue other care per attending / other consultants ...... care plan discussed with at bedside CONDITION: CRITICAL PROGNOSIS: GUARDED-POOR CODE STATUS: FULL CODE The high probability of a clinically significant, sudden or life-threatening deterioration of the [cardiac, respiratory & neurologic] system(s) required my full and direct attention, intervention and personal management. The aggregate critical care time was [35] minutes without overlap. Time includes spent on; [x] Data Review and interpretation [x] Patient assessment and monitoring of vital signs [x] Documentation [x] Medication orders and management Subjective Date of service: 03/11/19 Principal diagnosis: Ac. hypoxemic resp failure; Sev Sepsis; R. pleural effusion; Met. breast CA Interval history: Patient is seen today for: Acute hypoxemic-hypercapnic respiratory failure; Sepsis, possible from left lung pneumonia; Right pleural effusion; Metastatic breast cancer; Hypernatremia; Poor medical compliance; Obesity Seen and examined at bedside; 24hour events reviewed; nursing and respiratory care staff consulted; no adverse overnight events reported to me; resting in bed; remains septic; remains with AMS; still with uncompensated respiratory component to acidosis; No emesis or overt aspiration; met with family and continued aggressive care requested per their substituted judgment Objective Vital Signs - 12hr 03/10/19 03/10/19 03/10/19 21:45 22:00 22:15 Temperature Pulse Rate 113 H 107 H 107 H Pulse Rate [ Anterior Throughout] Pulse Rate [ From Monitor] Respiratory 35 H 27 H 29 H Rate Respiratory Rate [Anterior Throughout] Blood Pressure 117/54 126/56 118/56 O2 Sat by Pulse 100 96 96 Oximetry 03/10/19 03/10/19 03/10/19 22:30 22:45 23:00 Temperature Pulse Rate 111 H 112 H 109 H Pulse Rate [ Anterior Throughout] Pulse Rate [ From Monitor] Respiratory 29 H 31 H 24 Rate Respiratory Rate [Anterior Throughout] Blood Pressure 118/56 119/53 111/55 O2 Sat by Pulse 97 96 Oximetry 03/10/19 03/10/19 03/10/19 23:10 23:11 23:15 Temperature 98.8 F Pulse Rate 112 H 108 H Pulse Rate [ Anterior Throughout] Pulse Rate [ From Monitor] Respiratory 26 H 21 Rate Respiratory Rate [Anterior Throughout] Blood Pressure 111/55 110/54 O2 Sat by Pulse 97 Oximetry 03/10/19 03/10/19 03/11/19 23:30 23:45 00:00 Temperature Pulse Rate 109 H 106 H 114 H Pulse Rate [ Anterior Throughout] Pulse Rate [ 114 H From Monitor] Respiratory 23 18 25 H Rate Respiratory Rate [Anterior Throughout] Blood Pressure 115/50 118/52 114/49 O2 Sat by Pulse 95 96 96 Oximetry 03/11/19 03/11/19 03/11/19 00:15 00:30 00:45 Temperature Pulse Rate 115 H 115 H 113 H Pulse Rate [ Anterior Throughout] Pulse Rate [ From Monitor] Respiratory 36 H 21 35 H Rate Respiratory Rate [Anterior Throughout] Blood Pressure 110/50 111/49 116/50 O2 Sat by Pulse 95 95 97 Oximetry 03/11/19 03/11/19 03/11/19 00:54 01:00 01:15 Temperature Pulse Rate 112 H 110 H 111 H Pulse Rate [ Anterior Throughout] Pulse Rate [ From Monitor] Respiratory 16 17 Rate Respiratory Rate [Anterior Throughout] Blood Pressure 116/50 117/54 121/55 O2 Sat by Pulse 96 92 96 Oximetry 03/11/19 03/11/19 03/11/19 01:30 01:45 02:00 Temperature Pulse Rate 111 H 110 H 115 H Pulse Rate [ Anterior Throughout] Pulse Rate [ From Monitor] Respiratory 18 16 16 Rate Respiratory Rate [Anterior Throughout] Blood Pressure 123/55 122/55 123/53 O2 Sat by Pulse 95 90 91 Oximetry 03/11/19 03/11/19 03/11/19 02:15 02:30 02:45 Temperature Pulse Rate 111 H 116 H 117 H Pulse Rate [ Anterior Throughout] Pulse Rate [ From Monitor] Respiratory 20 33 H 22 Rate Respiratory Rate [Anterior Throughout] Blood Pressure 119/51 124/55 118/56 O2 Sat by Pulse 91 89 92 Oximetry 03/11/19 03/11/19 03/11/19 03:00 03:08 03:15 Temperature 98.2 F Pulse Rate 114 H 112 H Pulse Rate [ Anterior Throughout] Pulse Rate [ From Monitor] Respiratory 38 H 21 Rate Respiratory Rate [Anterior Throughout] Blood Pressure 121/56 113/52 O2 Sat by Pulse 91 91 Oximetry 03/11/19 03/11/19 03/11/19 03:30 03:32 03:45 Temperature Pulse Rate 112 H 113 H 105 H Pulse Rate [ Anterior Throughout] Pulse Rate [ From Monitor] Respiratory 19 35 H Rate Respiratory Rate [Anterior Throughout] Blood Pressure 113/50 113/50 111/46 O2 Sat by Pulse 97 98 Oximetry 03/11/19 03/11/19 03/11/19 04:00 04:15 04:30 Temperature Pulse Rate 117 H 112 H 116 H Pulse Rate [ Anterior Throughout] Pulse Rate [ 119 H From Monitor] Respiratory 36 H 21 35 H Rate Respiratory Rate [Anterior Throughout] Blood Pressure 107/50 112/51 110/52 O2 Sat by Pulse 98 92 92 Oximetry 03/11/19 03/11/19 03/11/19 04:45 05:00 05:15 Temperature Pulse Rate 108 H 109 H 113 H Pulse Rate [ Anterior Throughout] Pulse Rate [ From Monitor] Respiratory 26 H 32 H 36 H Rate Respiratory Rate [Anterior Throughout] Blood Pressure 117/54 113/45 107/50 O2 Sat by Pulse 92 92 92 Oximetry 03/11/19 03/11/19 03/11/19 05:30 05:45 06:00 Temperature Pulse Rate 113 H 88 117 H Pulse Rate [ Anterior Throughout] Pulse Rate [ From Monitor] Respiratory 37 H 25 H 27 H Rate Respiratory Rate [Anterior Throughout] Blood Pressure 118/48 115/48 110/50 O2 Sat by Pulse 92 90 93 Oximetry 03/11/19 03/11/19 03/11/19 06:15 06:30 06:45 Temperature Pulse Rate 116 H 114 H 116 H Pulse Rate [ Anterior Throughout] Pulse Rate [ From Monitor] Respiratory 35 H 36 H 29 H Rate Respiratory Rate [Anterior Throughout] Blood Pressure 101/46 96/44 103/45 O2 Sat by Pulse 93 94 93 Oximetry 03/11/19 03/11/19 03/11/19 07:00 07:38 07:58 Temperature Pulse Rate 115 H 116 H Pulse Rate [ 114 H Anterior Throughout] Pulse Rate [ From Monitor] Respiratory 28 H Rate Respiratory 35 H Rate [Anterior Throughout] Blood Pressure 87/44 99/44 O2 Sat by Pulse 88 93 Oximetry 03/11/19 08:00 Temperature 100.5 F H Pulse Rate Pulse Rate [ Anterior Throughout] Pulse Rate [ From Monitor] Respiratory Rate Respiratory Rate [Anterior Throughout] Blood Pressure O2 Sat by Pulse Oximetry Constitutional: lethargic, appears uncomfortable, other (middle aged obese AAF with moderately increased respiratory distress on MVS) Eyes: icteric ENT: other (Small bowel feeding tube in place, 7.[address] 23cm at the lip) Neck: supple, no lymphadenopathy, no JVD, other (Left IJ CVC; large neck circumference) Effort: mildly labored Ascultation: Bilateral: diminished breath sounds, rales Percussion: Bilateral: not dull Cardiovascular: regular rate and rhythm, other (Tachycardia S1,S2, no murmurs. Anterior chest wall dressing) Gastrointestinal: normoactive bowel sounds, soft, non-tender, non-distended Integumentary: other (Chest wall wound) Extremities: no cyanosis, pulses normal, no ischemia or petechiae, edema, other (edema) Neurologic: pupils equal and round, other (sedated, unable to assess) Psychiatric: other (unable to assess re: AMS) CBC and BMP: 03/12/19 05:30 03/12/19 05:30 ABG, PT/INR, D-dimer: ABG POC ABG pH 7.252 (7.35-7.45) L 03/11/19 03:51 ABG pH 7.335 pH Units (7.350-7.450) L 03/03/19 05:25 ABG pCO2 61.3 mm Hg 03/03/19 05:25 POC ABG pO2 71 (80-105) L 03/11/19 03:51 ABG pO2 89.2 mm Hg (80.0-90.0) 03/03/19 05:25 POC ABG HCO3 35.7 (22-26 mml/L) 03/11/19 03:51 POC ABG Total CO2 38 (23-27mmol/L) 03/11/19 03:51 POC ABG O2 Sat 90 03/11/19 03:51 ABG O2 Saturation 97.0 % (95.0-99.0) 03/03/19 05:25 PT/INR, D-dimer PT 14.8 Sec. (12.2-14.9) 02/27/19 12:38 INR 1.17 (0.87-1.13) H 02/27/19 12:38 D-Dimer 5778.32 ng/mlDDU (0-234) H 02/27/19 12:38 Abnormal lab findings: Abnormal Labs 02/27/19 02/27/19 02/27/19 11:33 11:33 11:33 WBC 18.6 H RBC 3.60 L Hgb 8.7 L Hct 28.8 L MCH 24 L MCHC RDW 23.0 H Plt Count 507 H Lymph % (Auto) 12.9 L [place] # 1.3 H Seg Neutrophils % 79.7 H Seg Neuts % (Manual) Lymphocytes % (Manual) Nucleated RBC % Seg Neutrophils # 14.8 H Seg Neutrophils # Man Lymphocytes # (Manual) Monocytes # (Manual) INR D-Dimer POC ABG pH ABG pH POC ABG pCO2 POC ABG pO2 ABG pO2 ABG HCO3 ABG O2 Saturation ABG Base Excess ABG Hemoglobin Oxyhemoglobin Sodium Potassium Chloride 96.8 L Carbon Dioxide BUN 28 H Creatinine 0.5 L Glucose 169 H POC Glucose Lactic Acid 3.40 H* Phosphorus Magnesium AST ALT Alkaline Phosphatase Ammonia Total Creatine Kinase 197 H CK-MB (CK-2) 4.1 H NT-Pro-B Natriuret Pep Total Protein Albumin Free T4 Urine Creatinine Urine Chloride Crossmatch 02/27/19 02/27/19 02/27/19 11:33 11:45 11:47 WBC RBC Hgb Hct MCH MCHC RDW Plt Count Lymph % (Auto) [place] # Seg Neutrophils % Seg Neuts % (Manual) Lymphocytes % (Manual) Nucleated RBC % Seg Neutrophils # Seg Neutrophils # Man Lymphocytes # (Manual) Monocytes # (Manual) INR D-Dimer POC ABG pH ABG pH POC ABG pCO2 POC ABG pO2 ABG pO2 ABG HCO3 ABG O2 Saturation ABG Base Excess ABG Hemoglobin Oxyhemoglobin Sodium Potassium Chloride Carbon Dioxide BUN Creatinine Glucose POC Glucose 169 H Lactic Acid Phosphorus Magnesium AST 95 H ALT Alkaline Phosphatase 130 H Ammonia Total Creatine Kinase CK-MB (CK-2) NT-Pro-B Natriuret Pep Total Protein Albumin 2.9 L Free T4 Urine Creatinine Urine Chloride Crossmatch See Detail 02/27/19 02/27/19 02/27/19 12:30 12:38 14:08 WBC RBC Hgb Hct MCH MCHC RDW Plt Count Lymph % (Auto) [place] # Seg Neutrophils % Seg Neuts % (Manual) Lymphocytes % (Manual) Nucleated RBC % Seg Neutrophils # Seg Neutrophils # Man Lymphocytes # (Manual) Monocytes # (Manual) INR 1.17 H D-Dimer 5778.32 H POC ABG pH 7.326 L ABG pH POC ABG pCO2 POC ABG pO2 129 H ABG pO2 ABG HCO3 ABG O2 Saturation ABG Base Excess ABG Hemoglobin Oxyhemoglobin Sodium Potassium Chloride Carbon Dioxide BUN Creatinine Glucose POC Glucose Lactic Acid 3.00 H* Phosphorus Magnesium AST ALT Alkaline Phosphatase Ammonia Total Creatine Kinase CK-MB (CK-2) NT-Pro-B Natriuret Pep Total Protein Albumin Free T4 Urine Creatinine Urine Chloride Crossmatch 02/27/19 02/27/19 02/27/19 15:03 16:06 18:08 WBC RBC Hgb Hct MCH MCHC RDW Plt Count Lymph % (Auto) [place] # Seg Neutrophils % Seg Neuts % (Manual) Lymphocytes % (Manual) Nucleated RBC % Seg Neutrophils # Seg Neutrophils # Man Lymphocytes # (Manual) Monocytes # (Manual) INR D-Dimer POC ABG pH ABG pH POC ABG pCO2 68.8 H POC ABG pO2 225 H ABG pO2 ABG HCO3 ABG O2 Saturation ABG Base Excess ABG Hemoglobin Oxyhemoglobin Sodium Potassium Chloride Carbon Dioxide BUN Creatinine Glucose POC Glucose Lactic Acid 3.20 H* 2.80 H* Phosphorus Magnesium AST ALT Alkaline Phosphatase Ammonia Total Creatine Kinase CK-MB (CK-2) NT-Pro-B Natriuret Pep Total Protein Albumin Free T4 Urine Creatinine Urine Chloride Crossmatch 02/27/19 02/28/19 02/28/19 18:12 10:00 10:00 WBC 13.3 H RBC 3.39 L Hgb 8.1 L Hct 26.7 L MCH 24 L MCHC RDW 22.5 H Plt Count Lymph % (Auto) [place] # Seg Neutrophils % Seg Neuts % (Manual) Lymphocytes % (Manual) Nucleated RBC % Seg Neutrophils # Seg Neutrophils # Man Lymphocytes # (Manual) Monocytes # (Manual) INR D-Dimer POC ABG pH ABG pH POC ABG pCO2 POC ABG pO2 ABG pO2 ABG HCO3 ABG O2 Saturation ABG Base Excess ABG Hemoglobin Oxyhemoglobin Sodium 146 H Potassium Chloride Carbon Dioxide 32 H BUN 32 H Creatinine 0.5 L Glucose 111 H POC Glucose Lactic Acid 2.30 H* Phosphorus Magnesium AST 93 H ALT Alkaline Phosphatase Ammonia Total Creatine Kinase CK-MB (CK-2) NT-Pro-B Natriuret Pep Total Protein Albumin 2.6 L Free T4 Urine Creatinine Urine Chloride Crossmatch 02/28/19 03/01/19 03/01/19 10:26 00:05 05:00 WBC 20.2 H RBC Hgb 9.0 L Hct 29.9 L MCH 24 L MCHC RDW 22.8 H Plt Count 498 H Lymph % (Auto) [place] # Seg Neutrophils % Seg Neuts % (Manual) Lymphocytes % (Manual) Nucleated RBC % Seg Neutrophils # Seg Neutrophils # Man Lymphocytes # (Manual) Monocytes # (Manual) INR D-Dimer POC ABG pH ABG pH POC ABG pCO2 54.2 H POC ABG pO2 ABG pO2 ABG HCO3 ABG O2 Saturation ABG Base Excess ABG Hemoglobin Oxyhemoglobin Sodium Potassium Chloride Carbon Dioxide BUN Creatinine Glucose POC Glucose 167 H Lactic Acid Phosphorus Magnesium AST ALT Alkaline Phosphatase Ammonia Total Creatine Kinase CK-MB (CK-2) NT-Pro-B Natriuret Pep Total Protein Albumin Free T4 Urine Creatinine Urine Chloride Crossmatch 03/01/19 03/01/19 03/01/19 05:00 12:36 17:31 WBC RBC Hgb Hct MCH MCHC RDW Plt Count Lymph % (Auto) [place] # Seg Neutrophils % Seg Neuts % (Manual) Lymphocytes % (Manual) Nucleated RBC % Seg Neutrophils # Seg Neutrophils # Man Lymphocytes # (Manual) Monocytes # (Manual) INR D-Dimer POC ABG pH ABG pH POC ABG pCO2 POC ABG pO2 ABG pO2 ABG HCO3 ABG O2 Saturation ABG Base Excess ABG Hemoglobin Oxyhemoglobin Sodium 148 H Potassium Chloride Carbon Dioxide 37 H BUN 43 H Creatinine 0.6 L Glucose 150 H POC Glucose 140 H 157 H Lactic Acid Phosphorus Magnesium AST ALT Alkaline Phosphatase Ammonia Total Creatine Kinase CK-MB (CK-2) NT-Pro-B Natriuret Pep Total Protein Albumin Free T4 Urine Creatinine Urine Chloride Crossmatch 03/02/19 03/02/19 03/02/19 04:29 04:32 05:27 WBC RBC Hgb Hct MCH MCHC RDW Plt Count Lymph % (Auto) [place] # Seg Neutrophils % Seg Neuts % (Manual) Lymphocytes % (Manual) Nucleated RBC % Seg Neutrophils # Seg Neutrophils # Man Lymphocytes # (Manual) Monocytes # (Manual) INR D-Dimer POC ABG pH 7.056 L ABG pH POC ABG pCO2 POC ABG pO2 64 L ABG pO2 ABG HCO3 ABG O2 Saturation ABG Base Excess ABG Hemoglobin Oxyhemoglobin Sodium Potassium Chloride Carbon Dioxide BUN Creatinine Glucose POC Glucose 161 H Lactic Acid Phosphorus Magnesium AST ALT Alkaline Phosphatase Ammonia Total Creatine Kinase CK-MB (CK-2) NT-Pro-B Natriuret Pep 2143 H Total Protein Albumin Free T4 Urine Creatinine Urine Chloride Crossmatch 03/02/19 03/02/19 03/02/19 05:27 05:27 05:27 WBC 17.8 H RBC 3.50 L Hgb 8.5 L Hct 29.5 L MCH 24 L MCHC 29 L RDW 21.9 H Plt Count Lymph % (Auto) [place] # Seg Neutrophils % Seg Neuts % (Manual) 94.0 H Lymphocytes % (Manual) 2.0 L Nucleated RBC % 1.0 H Seg Neutrophils # Seg Neutrophils # Man 16.7 H Lymphocytes # (Manual) 0.4 L Monocytes # (Manual) INR D-Dimer POC ABG pH ABG pH POC ABG pCO2 POC ABG pO2 ABG pO2 ABG HCO3 ABG O2 Saturation ABG Base Excess ABG Hemoglobin Oxyhemoglobin Sodium 156 H D Potassium 5.4 H Chloride 108.6 H Carbon Dioxide 39 H BUN 60 H Creatinine Glucose 159 H POC Glucose Lactic Acid Phosphorus Magnesium AST 164 H ALT Alkaline Phosphatase 164 H Ammonia 81.0 H Total Creatine Kinase CK-MB (CK-2) NT-Pro-B Natriuret Pep Total Protein 6.2 L Albumin 2.2 L Free T4 Urine Creatinine Urine Chloride Crossmatch 03/02/19 03/02/19 03/02/19 05:27 06:04 10:56 WBC RBC Hgb Hct MCH MCHC RDW Plt Count Lymph % (Auto) [place] # Seg Neutrophils % Seg Neuts % (Manual) Lymphocytes % (Manual) Nucleated RBC % Seg Neutrophils # Seg Neutrophils # Man Lymphocytes # (Manual) Monocytes # (Manual) INR D-Dimer POC ABG pH ABG pH 7.239 L POC ABG pCO2 POC ABG pO2 ABG pO2 60.0 L 103.9 H ABG HCO3 36.6 H 32.9 H ABG O2 Saturation 88.3 L ABG Base Excess 7.3 H 7.7 H ABG Hemoglobin 9.1 L 9.0 L Oxyhemoglobin 86.3 L Sodium Potassium Chloride Carbon Dioxide BUN Creatinine Glucose POC Glucose Lactic Acid Phosphorus 6.90 H Magnesium 2.80 H AST ALT Alkaline Phosphatase Ammonia Total Creatine Kinase CK-MB (CK-2) NT-Pro-B Natriuret Pep Total Protein Albumin Free T4 Urine Creatinine Urine Chloride Crossmatch 03/02/19 03/02/19 03/02/19 13:58 23:40 Unknown WBC RBC Hgb Hct MCH MCHC RDW Plt Count Lymph % (Auto) [place] # Seg Neutrophils % Seg Neuts % (Manual) Lymphocytes % (Manual) Nucleated RBC % Seg Neutrophils # Seg Neutrophils # Man Lymphocytes # (Manual) Monocytes # (Manual) INR D-Dimer POC ABG pH ABG pH POC ABG pCO2 POC ABG pO2 ABG pO2 ABG HCO3 ABG O2 Saturation ABG Base Excess ABG Hemoglobin Oxyhemoglobin Sodium Potassium Chloride Carbon Dioxide BUN Creatinine Glucose POC Glucose 127 H 161 H Lactic Acid Phosphorus Magnesium AST ALT Alkaline Phosphatase Ammonia Total Creatine Kinase CK-MB (CK-2) NT-Pro-B Natriuret Pep Total Protein Albumin Free T4 Urine Creatinine 218.2 H Urine Chloride Crossmatch 03/03/19 03/03/19 03/03/19 05:00 05:00 05:25 WBC 17.8 H RBC 3.62 L Hgb 8.8 L Hct 28.9 L MCH 24 L MCHC RDW 22.8 H Plt Count Lymph % (Auto) [place] # Seg Neutrophils % Seg Neuts % (Manual) 96.0 H Lymphocytes % (Manual) 1.0 L Nucleated RBC % 3.0 H Seg Neutrophils # Seg Neutrophils # Man 17.1 H Lymphocytes # (Manual) 0.2 L Monocytes # (Manual) INR D-Dimer POC ABG pH ABG pH 7.335 L POC ABG pCO2 POC ABG pO2 ABG pO2 ABG HCO3 32.0 H ABG O2 Saturation ABG Base Excess 5.2 H ABG Hemoglobin 8.2 L Oxyhemoglobin 94.9 L Sodium 160 H Potassium 3.5 L D Chloride 113.7 H Carbon Dioxide BUN 90 H Creatinine 1.7 H D Glucose 149 H POC Glucose Lactic Acid Phosphorus Magnesium 2.90 H AST 624 H ALT 211 H Alkaline Phosphatase 416 H Ammonia Total Creatine Kinase CK-MB (CK-2) NT-Pro-B Natriuret Pep Total Protein 6.2 L Albumin 2.2 L Free T4 Urine Creatinine Urine Chloride Crossmatch 03/03/19 03/03/19 03/03/19 05:41 12:27 15:54 WBC RBC Hgb Hct MCH MCHC RDW Plt Count Lymph % (Auto) [place] # Seg Neutrophils % Seg Neuts % (Manual) Lymphocytes % (Manual) Nucleated RBC % Seg Neutrophils # Seg Neutrophils # Man Lymphocytes # (Manual) Monocytes # (Manual) INR D-Dimer POC ABG pH ABG pH POC ABG pCO2 POC ABG pO2 ABG pO2 ABG HCO3 ABG O2 Saturation ABG Base Excess ABG Hemoglobin Oxyhemoglobin Sodium Potassium Chloride Carbon Dioxide BUN Creatinine Glucose POC Glucose 150 H 167 H Lactic Acid Phosphorus Magnesium AST ALT Alkaline Phosphatase Ammonia Total Creatine Kinase CK-MB (CK-2) NT-Pro-B Natriuret Pep Total Protein Albumin Free T4 0.50 L Urine Creatinine Urine Chloride Crossmatch 03/03/19 03/03/19 03/04/19 17:32 23:57 04:11 WBC RBC Hgb Hct MCH MCHC RDW Plt Count Lymph % (Auto) [place] # Seg Neutrophils % Seg Neuts % (Manual) Lymphocytes % (Manual) Nucleated RBC % Seg Neutrophils # Seg Neutrophils # Man Lymphocytes # (Manual) Monocytes # (Manual) INR D-Dimer POC ABG pH 7.332 L ABG pH POC ABG pCO2 57.1 H POC ABG pO2 ABG pO2 ABG HCO3 ABG O2 Saturation ABG Base Excess ABG Hemoglobin Oxyhemoglobin Sodium Potassium Chloride Carbon Dioxide BUN Creatinine Glucose POC Glucose 165 H 202 H Lactic Acid Phosphorus Magnesium AST ALT Alkaline Phosphatase Ammonia Total Creatine Kinase CK-MB (CK-2) NT-Pro-B Natriuret Pep Total Protein Albumin Free T4 Urine Creatinine Urine Chloride Crossmatch 03/04/19 03/04/19 03/04/19 04:38 04:38 05:30 WBC 23.0 H RBC 3.36 L Hgb 7.9 L Hct 26.6 L MCH 24 L MCHC RDW 23.1 H Plt Count Lymph % (Auto) [place] # Seg Neutrophils % Seg Neuts % (Manual) 98.0 H Lymphocytes % (Manual) 0 L Nucleated RBC % Seg Neutrophils # Seg Neutrophils # Man 22.5 H Lymphocytes # (Manual) 0.0 L Monocytes # (Manual) INR D-Dimer POC ABG pH ABG pH POC ABG pCO2 POC ABG pO2 ABG pO2 ABG HCO3 ABG O2 Saturation ABG Base Excess ABG Hemoglobin Oxyhemoglobin Sodium 151 H D Potassium Chloride 110.4 H Carbon Dioxide BUN 103 H Creatinine 2.0 H Glucose 177 H POC Glucose 172 H Lactic Acid Phosphorus Magnesium AST 244 H ALT 159 H Alkaline Phosphatase 365 H Ammonia Total Creatine Kinase CK-MB (CK-2) NT-Pro-B Natriuret Pep Total Protein 5.9 L Albumin 2.1 L Free T4 Urine Creatinine Urine Chloride Crossmatch 03/04/19 03/04/19 03/04/19 12:10 12:39 18:11 WBC RBC Hgb Hct MCH MCHC RDW Plt Count Lymph % (Auto) [place] # Seg Neutrophils % Seg Neuts % (Manual) Lymphocytes % (Manual) Nucleated RBC % Seg Neutrophils # Seg Neutrophils # Man Lymphocytes # (Manual) Monocytes # (Manual) INR D-Dimer POC ABG pH ABG pH POC ABG pCO2 POC ABG pO2 ABG pO2 ABG HCO3 ABG O2 Saturation ABG Base Excess ABG Hemoglobin Oxyhemoglobin Sodium Potassium Chloride Carbon Dioxide BUN Creatinine Glucose POC Glucose 226 H 173 H Lactic Acid Phosphorus Magnesium AST ALT Alkaline Phosphatase Ammonia Total Creatine Kinase CK-MB (CK-2) NT-Pro-B Natriuret Pep Total Protein Albumin Free T4 Urine Creatinine 185.9 H Urine Chloride 10.2 L Crossmatch 03/04/19 03/05/19 03/05/19 23:24 04:16 04:28 WBC 23.8 H RBC 3.08 L Hgb 7.5 L Hct 25.0 L MCH 24 L MCHC RDW 23.0 H Plt Count Lymph % (Auto) [place] # Seg Neutrophils % Seg Neuts % (Manual) 96.0 H Lymphocytes % (Manual) 3.0 L Nucleated RBC % 1.0 H Seg Neutrophils # Seg Neutrophils # Man 22.8 H Lymphocytes # (Manual) 0.7 L Monocytes # (Manual) INR D-Dimer POC ABG pH 7.274 L ABG pH POC ABG pCO2 59.7 H POC ABG pO2 107 H ABG pO2 ABG HCO3 ABG O2 Saturation ABG Base Excess ABG Hemoglobin Oxyhemoglobin Sodium Potassium Chloride Carbon Dioxide BUN Creatinine Glucose POC Glucose 184 H Lactic Acid Phosphorus Magnesium AST ALT Alkaline Phosphatase Ammonia Total Creatine Kinase CK-MB (CK-2) NT-Pro-B Natriuret Pep Total Protein Albumin Free T4 Urine Creatinine Urine Chloride Crossmatch 03/05/19 03/05/19 03/05/19 04:28 04:28 05:29 WBC RBC Hgb Hct MCH MCHC RDW Plt Count Lymph % (Auto) [place] # Seg Neutrophils % Seg Neuts % (Manual) Lymphocytes % (Manual) Nucleated RBC % Seg Neutrophils # Seg Neutrophils # Man Lymphocytes # (Manual) Monocytes # (Manual) INR D-Dimer POC ABG pH ABG pH POC ABG pCO2 POC ABG pO2 ABG pO2 ABG HCO3 ABG O2 Saturation ABG Base Excess ABG Hemoglobin Oxyhemoglobin Sodium 147 H Potassium Chloride 107.9 H Carbon Dioxide BUN 112 H Creatinine 2.3 H Glucose 153 H POC Glucose 147 H Lactic Acid Phosphorus Magnesium AST 188 H ALT 138 H Alkaline Phosphatase 384 H Ammonia 71.0 H Total Creatine Kinase CK-MB (CK-2) NT-Pro-B Natriuret Pep Total Protein 6.0 L Albumin 2.2 L Free T4 Urine Creatinine Urine Chloride Crossmatch 03/05/19 03/05/19 03/05/19 12:00 17:44 23:48 WBC RBC Hgb Hct MCH MCHC RDW Plt Count Lymph % (Auto) [place] # Seg Neutrophils % Seg Neuts % (Manual) Lymphocytes % (Manual) Nucleated RBC % Seg Neutrophils # Seg Neutrophils # Man Lymphocytes # (Manual) Monocytes # (Manual) INR D-Dimer POC ABG pH ABG pH POC ABG pCO2 POC ABG pO2 ABG pO2 ABG HCO3 ABG O2 Saturation ABG Base Excess ABG Hemoglobin Oxyhemoglobin Sodium Potassium Chloride Carbon Dioxide BUN Creatinine Glucose POC Glucose 181 H 111 H 120 H Lactic Acid Phosphorus Magnesium AST ALT Alkaline Phosphatase Ammonia Total Creatine Kinase CK-MB (CK-2) NT-Pro-B Natriuret Pep Total Protein Albumin Free T4 Urine Creatinine Urine Chloride Crossmatch 03/06/19 03/06/19 03/06/19 04:55 04:55 05:19 WBC 26.5 H RBC 3.28 L Hgb 7.7 L Hct 26.4 L MCH 24 L MCHC 29 L RDW 23.0 H Plt Count Lymph % (Auto) [place] # Seg Neutrophils % Seg Neuts % (Manual) 98.0 H Lymphocytes % (Manual) 2.0 L Nucleated RBC % 2.0 H Seg Neutrophils # Seg Neutrophils # Man 26.0 H Lymphocytes # (Manual) 0.5 L Monocytes # (Manual) INR D-Dimer POC ABG pH 7.248 L ABG pH POC ABG pCO2 65.9 H POC ABG pO2 79 L ABG pO2 ABG HCO3 ABG O2 Saturation ABG Base Excess ABG Hemoglobin Oxyhemoglobin Sodium 147 H Potassium Chloride Carbon Dioxide BUN 132 H Creatinine 2.6 H Glucose 128 H POC Glucose Lactic Acid Phosphorus Magnesium AST 207 H ALT 144 H Alkaline Phosphatase 529 H Ammonia Total Creatine Kinase CK-MB (CK-2) NT-Pro-B Natriuret Pep Total Protein 6.1 L Albumin 2.4 L Free T4 Urine Creatinine Urine Chloride Crossmatch 03/06/19 03/06/19 03/06/19 05:35 13:06 15:20 WBC RBC Hgb Hct MCH MCHC RDW Plt Count Lymph % (Auto) [place] # Seg Neutrophils % Seg Neuts % (Manual) Lymphocytes % (Manual) Nucleated RBC % Seg Neutrophils # Seg Neutrophils # Man Lymphocytes # (Manual) Monocytes # (Manual) INR D-Dimer POC ABG pH 7.263 L ABG pH POC ABG pCO2 64.7 H POC ABG pO2 67 L ABG pO2 ABG HCO3 ABG O2 Saturation ABG Base Excess ABG Hemoglobin Oxyhemoglobin Sodium Potassium Chloride Carbon Dioxide BUN Creatinine Glucose POC Glucose 113 H 123 H Lactic Acid Phosphorus Magnesium AST ALT Alkaline Phosphatase Ammonia Total Creatine Kinase CK-MB (CK-2) NT-Pro-B Natriuret Pep Total Protein Albumin Free T4 Urine Creatinine Urine Chloride Crossmatch 03/06/19 03/06/19 03/07/19 18:41 23:33 04:34 WBC RBC Hgb Hct MCH MCHC RDW Plt Count Lymph % (Auto) [place] # Seg Neutrophils % Seg Neuts % (Manual) Lymphocytes % (Manual) Nucleated RBC % Seg Neutrophils # Seg Neutrophils # Man Lymphocytes # (Manual) Monocytes # (Manual) INR D-Dimer POC ABG pH 7.258 L ABG pH POC ABG pCO2 65.6 H POC ABG pO2 73 L ABG pO2 ABG HCO3 ABG O2 Saturation ABG Base Excess ABG Hemoglobin Oxyhemoglobin Sodium Potassium Chloride Carbon Dioxide BUN Creatinine Glucose POC Glucose 131 H 141 H Lactic Acid Phosphorus Magnesium AST ALT Alkaline Phosphatase Ammonia Total Creatine Kinase CK-MB (CK-2) NT-Pro-B Natriuret Pep Total Protein Albumin Free T4 Urine Creatinine Urine Chloride Crossmatch 03/07/19 03/07/19 03/07/19 05:13 11:47 12:19 WBC RBC Hgb Hct MCH MCHC RDW Plt Count Lymph % (Auto) [place] # Seg Neutrophils % Seg Neuts % (Manual) Lymphocytes % (Manual) Nucleated RBC % Seg Neutrophils # Seg Neutrophils # Man Lymphocytes # (Manual) Monocytes # (Manual) INR D-Dimer POC ABG pH ABG pH POC ABG pCO2 POC ABG pO2 ABG pO2 ABG HCO3 ABG O2 Saturation ABG Base Excess ABG Hemoglobin Oxyhemoglobin Sodium Potassium Chloride Carbon Dioxide BUN Creatinine Glucose POC Glucose 122 H 128 H 132 H Lactic Acid Phosphorus Magnesium AST ALT Alkaline Phosphatase Ammonia Total Creatine Kinase CK-MB (CK-2) NT-Pro-B Natriuret Pep Total Protein Albumin Free T4 Urine Creatinine Urine Chloride Crossmatch 03/07/19 03/07/19 03/07/19 16:19 17:45 23:14 WBC RBC Hgb Hct MCH MCHC RDW Plt Count Lymph % (Auto) [place] # Seg Neutrophils % Seg Neuts % (Manual) Lymphocytes % (Manual) Nucleated RBC % Seg Neutrophils # Seg Neutrophils # Man Lymphocytes # (Manual) Monocytes # (Manual) INR D-Dimer POC ABG pH 7.246 L ABG pH POC ABG pCO2 65.2 H POC ABG pO2 69 L ABG pO2 ABG HCO3 ABG O2 Saturation ABG Base Excess ABG Hemoglobin Oxyhemoglobin Sodium Potassium Chloride Carbon Dioxide BUN Creatinine Glucose POC Glucose 159 H 152 H Lactic Acid Phosphorus Magnesium AST ALT Alkaline Phosphatase Ammonia Total Creatine Kinase CK-MB (CK-2) NT-Pro-B Natriuret Pep Total Protein Albumin Free T4 Urine Creatinine Urine Chloride Crossmatch 03/08/19 03/08/19 03/08/19 04:09 04:51 06:30 WBC 27.8 H RBC 3.35 L Hgb 7.9 L Hct 27.0 L MCH 24 L MCHC 29 L RDW 23.0 H Plt Count Lymph % (Auto) [place] # Seg Neutrophils % Seg Neuts % (Manual) 91.0 H Lymphocytes % (Manual) 4.0 L Nucleated RBC % 5.0 H Seg Neutrophils # Seg Neutrophils # Man 25.3 H Lymphocytes # (Manual) 1.1 L Monocytes # (Manual) 1.1 H INR D-Dimer POC ABG pH 7.155 L ABG pH POC ABG pCO2 POC ABG pO2 79 L ABG pO2 ABG HCO3 ABG O2 Saturation ABG Base Excess ABG Hemoglobin Oxyhemoglobin Sodium Potassium Chloride Carbon Dioxide BUN Creatinine Glucose POC Glucose 153 H Lactic Acid Phosphorus Magnesium AST ALT Alkaline Phosphatase Ammonia Total Creatine Kinase CK-MB (CK-2) NT-Pro-B Natriuret Pep Total Protein Albumin Free T4 Urine Creatinine Urine Chloride Crossmatch 03/08/19 03/08/19 03/08/19 06:30 09:29 12:13 WBC RBC Hgb Hct MCH MCHC RDW Plt Count Lymph % (Auto) [place] # Seg Neutrophils % Seg Neuts % (Manual) Lymphocytes % (Manual) Nucleated RBC % Seg Neutrophils # Seg Neutrophils # Man Lymphocytes # (Manual) Monocytes # (Manual) INR D-Dimer POC ABG pH 7.182 L ABG pH POC ABG pCO2 POC ABG pO2 77 L ABG pO2 ABG HCO3 ABG O2 Saturation ABG Base Excess ABG Hemoglobin Oxyhemoglobin Sodium Potassium 6.5 H* D Chloride Carbon Dioxide BUN 164 H Creatinine 3.3 H Glucose 141 H POC Glucose 133 H Lactic Acid Phosphorus Magnesium AST 543 H ALT 280 H Alkaline Phosphatase 641 H Ammonia Total Creatine Kinase CK-MB (CK-2) NT-Pro-B Natriuret Pep Total Protein 6.2 L Albumin 2.5 L Free T4 Urine Creatinine Urine Chloride Crossmatch 03/08/19 03/08/19 03/09/19 17:49 23:55 05:35 WBC RBC Hgb Hct MCH MCHC RDW Plt Count Lymph % (Auto) [place] # Seg Neutrophils % Seg Neuts % (Manual) Lymphocytes % (Manual) Nucleated RBC % Seg Neutrophils # Seg Neutrophils # Man Lymphocytes # (Manual) Monocytes # (Manual) INR D-Dimer POC ABG pH ABG pH POC ABG pCO2 POC ABG pO2 ABG pO2 ABG HCO3 ABG O2 Saturation ABG Base Excess ABG Hemoglobin Oxyhemoglobin Sodium Potassium Chloride Carbon Dioxide BUN Creatinine Glucose POC Glucose 159 H 136 H 134 H Lactic Acid Phosphorus Magnesium AST ALT Alkaline Phosphatase Ammonia Total Creatine Kinase CK-MB (CK-2) NT-Pro-B Natriuret Pep Total Protein Albumin Free T4 Urine Creatinine Urine Chloride Crossmatch 03/09/19 03/09/19 03/09/19 05:54 08:00 12:29 WBC RBC Hgb Hct MCH MCHC RDW Plt Count Lymph % (Auto) [place] # Seg Neutrophils % Seg Neuts % (Manual) Lymphocytes % (Manual) Nucleated RBC % Seg Neutrophils # Seg Neutrophils # Man Lymphocytes # (Manual) Monocytes # (Manual) INR D-Dimer POC ABG pH 7.160 L ABG pH POC ABG pCO2 POC ABG pO2 ABG pO2 ABG HCO3 ABG O2 Saturation ABG Base Excess ABG Hemoglobin Oxyhemoglobin Sodium Potassium 5.6 H Chloride 95.5 L Carbon Dioxide BUN 98 H Creatinine 2.7 H Glucose 143 H POC Glucose 144 H Lactic Acid Phosphorus Magnesium AST ALT Alkaline Phosphatase Ammonia Total Creatine Kinase CK-MB (CK-2) NT-Pro-B Natriuret Pep Total Protein Albumin Free T4 Urine Creatinine Urine Chloride Crossmatch 03/09/19 03/09/19 03/09/19 13:25 18:19 23:51 WBC RBC Hgb Hct MCH MCHC RDW Plt Count Lymph % (Auto) [place] # Seg Neutrophils % Seg Neuts % (Manual) Lymphocytes % (Manual) Nucleated RBC % Seg Neutrophils # Seg Neutrophils # Man Lymphocytes # (Manual) Monocytes # (Manual) INR D-Dimer POC ABG pH 7.184 L ABG pH POC ABG pCO2 POC ABG pO2 65 L ABG pO2 ABG HCO3 ABG O2 Saturation ABG Base Excess ABG Hemoglobin Oxyhemoglobin Sodium Potassium Chloride Carbon Dioxide BUN Creatinine Glucose POC Glucose 163 H 157 H Lactic Acid Phosphorus Magnesium AST ALT Alkaline Phosphatase Ammonia Total Creatine Kinase CK-MB (CK-2) NT-Pro-B Natriuret Pep Total Protein Albumin Free T4 Urine Creatinine Urine Chloride Crossmatch 03/10/19 03/10/19 03/10/19 03:55 05:48 11:47 WBC RBC Hgb Hct MCH MCHC RDW Plt Count Lymph % (Auto) [place] # Seg Neutrophils % Seg Neuts % (Manual) Lymphocytes % (Manual) Nucleated RBC % Seg Neutrophils # Seg Neutrophils # Man Lymphocytes # (Manual) Monocytes # (Manual) INR D-Dimer POC ABG pH 7.187 L ABG pH POC ABG pCO2 > 70 H POC ABG pO2 76 L ABG pO2 ABG HCO3 ABG O2 Saturation ABG Base Excess ABG Hemoglobin Oxyhemoglobin Sodium Potassium Chloride Carbon Dioxide BUN Creatinine Glucose POC Glucose 141 H 151 H Lactic Acid Phosphorus Magnesium AST ALT Alkaline Phosphatase Ammonia Total Creatine Kinase CK-MB (CK-2) NT-Pro-B Natriuret Pep Total Protein Albumin Free T4 Urine Creatinine Urine Chloride Crossmatch 03/10/19 03/10/19 03/10/19 18:19 21:28 23:45 WBC RBC Hgb Hct MCH MCHC RDW Plt Count Lymph % (Auto) [place] # Seg Neutrophils % Seg Neuts % (Manual) Lymphocytes % (Manual) Nucleated RBC % Seg Neutrophils # Seg Neutrophils # Man Lymphocytes # (Manual) Monocytes # (Manual) INR D-Dimer POC ABG pH 7.275 L ABG pH POC ABG pCO2 POC ABG pO2 ABG pO2 ABG HCO3 ABG O2 Saturation ABG Base Excess ABG Hemoglobin Oxyhemoglobin Sodium Potassium Chloride Carbon Dioxide BUN Creatinine Glucose POC Glucose 161 H 141 H Lactic Acid Phosphorus Magnesium AST ALT Alkaline Phosphatase Ammonia Total Creatine Kinase CK-MB (CK-2) NT-Pro-B Natriuret Pep Total Protein Albumin Free T4 Urine Creatinine Urine Chloride Crossmatch 03/11/19 03/11/19 03:51 05:33 WBC RBC Hgb Hct MCH MCHC RDW Plt Count Lymph % (Auto) [place] # Seg Neutrophils % Seg Neuts % (Manual) Lymphocytes % (Manual) Nucleated RBC % Seg Neutrophils # Seg Neutrophils # Man Lymphocytes # (Manual) Monocytes # (Manual) INR D-Dimer POC ABG pH 7.252 L ABG pH POC ABG pCO2 POC ABG pO2 71 L ABG pO2 ABG HCO3 ABG O2 Saturation ABG Base Excess ABG Hemoglobin Oxyhemoglobin Sodium Potassium Chloride Carbon Dioxide BUN Creatinine Glucose POC Glucose 205 H Lactic Acid Phosphorus Magnesium AST ALT Alkaline Phosphatase Ammonia Total Creatine Kinase CK-MB (CK-2) NT-Pro-B Natriuret Pep Total Protein Albumin Free T4 Urine Creatinine Urine Chloride Crossmatch Chest x-ray: other (none today) Allied health notes reviewed: RT
[2019-03-11 10:08] LABS: Calcium 8.4 mg/dL (8.4-10.2)
--- NOTE | 2019-03-11 10:22 | Progress Note ---
Assessment and Plan Cultures: Blood culture 02/27/19 no growth to date Urine culture 02/27/19 no growth to date Thoracentesis culture 02/28/19 - no growth, no orgs on gram stain. 03/02/2019 sputum: Olive albicans Assessment: 49 yo F PMHx metastatic breast cancer admitted with worsening shortness of breath. 1. Acute sepsis with shock - leukocytosis worsening likely reactive to malignancy. On levophed high dose at 10. Likely secondary to pneumonia. Breast wound looks clean. S/p meropenem x 7 days. 2. B/L Pneumonia with malignant effusion - difficult to tell with imaging. S/P thoracentesis, no growth on culture. Cythology of pleural fluid with malignant cells. Sputum with Olive - colonization. 3. Large breast wound - no obvious purulence and family denies any issues with the wound at this time. Obvious risk for infection, but at present appears stable. 4. Metastatic breast cancer 5. SELAM: Creatinine worsening. s/p emergent HD 6. Worsening LFTs and alkaline phosphatase, bilirubin normal. ?shock liver v/s mets. RUQ US suggestive of contracted gall bladder, multiple gall stones with possible chronic cholecystitis. Recs: Overall extremely poor prognosis with malignant pleural effusion consider palliative care monitor off abx D/W Dr Meehan Will follow. Su Reynaga MD Infectious Diseases Molecular Biology Director [facility] [phone] O [phone] Subjective Date of service: 03/11/19 Principal diagnosis: Ac. hypoxemic resp failure; Sev Sepsis; R. pleural effusion; Met. breast CA Interval history: Remains intubated on the vent on pressors-levo now at 10, on fentanyl. fever 100.5 Objective - Exam Narrative Exam: Constitutional: sedated, intubated Head, Ears, Nose: Normocephalic, atraumatic. External ears, nose normal Eyes: Conjunctivae/corneas clear. No icterus. No ptosis. Neck: intubated Oral: intubated Cardiovascular: S1, S2 normal. Respiratory: Good air entry, clear to auscultation bilaterally GI: Soft, non-tender; bowel sounds normal. No peritoneal signs Musculoskeletal: No pedal edema, no cyanosis. Skin: large left breast wound + with dressing no drainage, right breast with induration Hem/Lymphatic: No palpable cervical or supraclavicular nodes. No lymphangitis Psych: sedated Neurological: sedated, intubated, on vent +lawson right femoral TLC - Constitutional Vitals: Vital Signs Temp Pulse Resp BP Pulse Ox 100.5 F H 114 H 35 H 99/44 93 03/11/19 08:00 03/11/19 07:58 03/11/19 07:58 03/11/19 07:38 03/11/19 07:38 Temperature -Last 24 Hours Temperature 100.5 F Temperature 100.5 F Temperature 98.2 F Temperature 98.8 F Temperature 97.5 F Temperature 98.6 F Temperature 98.6 F Temperature 98.1 F Temperature 97.8 F - Labs CBC & Chem 7: 03/08/19 06:30 03/11/19 09:44 Labs: Abnormal lab results 03/10/19 03/10/19 03/10/19 Range/Units 03:55 11:47 18:19 POC ABG pH (7.35-7.45) POC ABG pCO2 > 70 H (35-45) POC ABG pO2 (80-105) Chloride (98-107) mmol/L BUN (7-17) mg/dL Creatinine (0.7-1.2) mg/dL Glucose (65-100) mg/dL POC Glucose 151 H 161 H (70-105) 03/10/19 03/10/19 03/11/19 Range/Units 21:28 23:45 03:51 POC ABG pH 7.275 L 7.252 L (7.35-7.45) POC ABG pCO2 (35-45) POC ABG pO2 71 L (80-105) Chloride (98-107) mmol/L BUN (7-17) mg/dL Creatinine (0.7-1.2) mg/dL Glucose (65-100) mg/dL POC Glucose 141 H (70-105) 03/11/19 03/11/19 Range/Units 05:33 09:44 POC ABG pH (7.35-7.45) POC ABG pCO2 (35-45) POC ABG pO2 (80-105) Chloride 93.8 L (98-107) mmol/L BUN 47 H (7-17) mg/dL Creatinine 2.4 H (0.7-1.2) mg/dL Glucose 136 H (65-100) mg/dL POC Glucose 205 H (70-105)
[2019-03-11] MEDS: LACTULOSE 20 GM/30 ML ORAL LIQD PO SCH ×2 (10:47→21:17)
[2019-03-11] MEDS: ENOXAPARIN 30 MG/0.3 ML INJ SUB-Q SCH (10:47)
[2019-03-11] MEDS: FAMOTIDINE 20 MG/2 ML INJ IV SCH (10:47)
[2019-03-12] MEDS: METOCLOPRAMIDE 10 MG/2 ML INJ IV SCH ×3 (00:05→16:38)
[2019-03-12] MEDS: INSULIN LISPRO 100 UNIT/ML SUB-Q SCH ×4 (00:05→18:11)
[2019-03-12] MEDS: fentaNYL DRIP Premix 2,000 MCG/100 ML BAG IV SCH ×5 (00:15→19:13)
[2019-03-12] MEDS: PROPOFOL 1,000 MG/100 ML BOTTLE IV SCH ×3 (04:53→21:22)
[2019-03-12] MEDS: NORepinephrine/NS 4 MG-250 ML 4 MG/250 ML BAG IV SCH ×6 (04:53→22:25)
[2019-03-12 05:47] LABS: Mean Corpuscular HGB Conc 29 % (30-34); Mean Corpuscular Volume 83 fl (79-97); Platelet Count 273 K/mm3 (140-440); Red Blood Count 3.36 M/mm3 (3.65-5.03)
[2019-03-12 05:51] LABS: Red Cell Distribution Width 22.7 % (13.2-15.2)
[2019-03-12 06:12] LABS: Albumin 2.3 g/dL (3.9-5); Calcium 9.1 mg/dL (8.4-10.2)
[2019-03-12 06:51] LABS: Basophils % (Manual) 0 % (0.0-1.8); Eosinophils % (Manual) 0 % (0.0-4.3); Total Cells Counted 200
[2019-03-12 06:52] LABS: Anisocytosis 1+; Platelet Estimate Consistent w Auto
[2019-03-12] MEDS: IPRATROPIUM/ALBUTEROL SULFATE 3 ML AMPUL.NEB IH SCH ×3 (09:13→20:02)
[2019-03-12] MEDS: FAMOTIDINE 20 MG/2 ML INJ IV SCH (09:34)
[2019-03-12] MEDS: ENOXAPARIN 30 MG/0.3 ML INJ SUB-Q SCH (09:34)
[2019-03-12] MEDS: LACTULOSE 20 GM/30 ML ORAL LIQD PO SCH ×2 (09:34→21:22)
[2019-03-12] MEDS: methylPREDNISolone Sod Succinate 40 MG/1 ML INJ IV SCH ×2 (09:34→21:22)
--- NOTE | 2019-03-12 12:18 | Progress Note ---
Assessment and Plan Cultures: Blood culture 02/27/19 no growth to date Urine culture 02/27/19 no growth to date Thoracentesis culture 02/28/19 - no growth, no orgs on gram stain. 03/02/2019 sputum: Olive albicans Assessment: 49 yo F PMHx metastatic breast cancer admitted with worsening shortness of breath. 1. Acute sepsis with shock - leukocytosis worsening likely reactive due to malignancy. On levophed higher dose at 28 today. Likely secondary to pneumonia. Breast wound looks clean. S/p meropenem x 7 days. 2. B/L Pneumonia with malignant effusion - difficult to tell with imaging. S/P thoracentesis, no growth on culture. Cythology of pleural fluid with malignant cells. Sputum with Olive - colonization. 3. Large breast wound - no obvious purulence and family denies any issues with the wound at this time. Obvious risk for infection, but at present appears stable. 4. Metastatic breast cancer 5. SELAM: Creatinine worsening. s/p emergent HD 6. Worsening LFTs and alkaline phosphatase, bilirubin normal. ?shock liver v/s mets. RUQ US suggestive of contracted gall bladder, multiple gall stones with possible chronic cholecystitis. Recs: Overall extremely poor prognosis with malignant pleural effusion consider palliative care monitor off abx D/W Dr Meehan Will follow. Su Reynaga MD Infectious Diseases [employer] [facility] [phone] O [phone] Subjective Date of service: 03/12/19 Principal diagnosis: Ac. hypoxemic resp failure; Sev Sepsis; R. pleural effu lupe; Met. breast CA Interval history: Remains intubated on the vent on pressors-levo now at 28, on fentanyl. No fever last 24h. Objective - Exam Narrative Exam: Constitutional: sedated, intubated Head, Ears, Nose: Normocephalic, atraumatic. External ears, nose normal Eyes: Conjunctivae/corneas clear. No icterus. No ptosis. Neck: intubated Oral: intubated Cardiovascular: S1, S2 normal. Respiratory: Good air entry, clear to auscultation bilaterally GI: Soft, non-tender; bowel sounds normal. No peritoneal signs Musculoskeletal: No pedal edema, no cyanosis. Skin: large left breast wound + with dressing no drainage, right breast with induration Hem/Lymphatic: No palpable cervical or supraclavicular nodes. No lymphangitis Psych: sedated Neurological: sedated, intubated, on vent +lawson right femoral TLC - Constitutional Vitals: Vital Signs Temp Pulse Resp BP Pulse Ox 97.5 F L 123 H 35 H 104/54 84 03/12/19 12:00 03/12/19 11:53 03/12/19 11:30 03/12/19 11:53 03/12/19 11:53 Temperature -Last 24 Hours Temperature 97.5 F Temperature 98.2 F Temperature 99.1 F Temperature 99.5 F Temperature 98.2 F Temperature 98.8 F - Labs CBC & Chem 7: 03/12/19 05:30 03/12/19 05:30 Labs: Abnormal lab results 03/10/19 03/11/19 03/11/19 Range/Units 21:28 03:51 11:55 WBC (4.5-11.0) K/mm3 RBC (3.65-5.03) M/mm3 Hgb (10.1-14.3) gm/dl Hct (30.3-42.9) % MCH (28-32) pg MCHC (30-34) % RDW (13.2-15.2) % Seg Neuts % (Manual) (40.0-70.0) % Lymphocytes % (Manual) (13.4-35.0) % Nucleated RBC % (0.0-0.9) % Seg Neutrophils # Man (1.8-7.7) K/mm3 Lymphocytes # (Manual) (1.2-5.4) K/mm3 POC ABG pH (7.35-7.45) POC ABG pCO2 > 70 H > 70 H (35-45) POC ABG pO2 (80-105) Chloride (98-107) mmol/L BUN (7-17) mg/dL Creatinine (0.7-1.2) mg/dL Glucose (65-100) mg/dL POC Glucose 144 H (70-105) AST (5-40) units/L ALT (7-56) units/L Alkaline Phosphatase (35-129) units/L Total Protein (6.3-8.2) g/dL Albumin (3.9-5) g/dL Triglycerides (2-149) mg/dL 03/11/19 03/11/19 03/12/19 Range/Units 18:45 23:43 03:43 WBC (4.5-11.0) K/mm3 RBC (3.65-5.03) M/mm3 Hgb (10.1-14.3) gm/dl Hct (30.3-42.9) % MCH (28-32) pg MCHC (30-34) % RDW (13.2-15.2) % Seg Neuts % (Manual) (40.0-70.0) % Lymphocytes % (Manual) (13.4-35.0) % Nucleated RBC % (0.0-0.9) % Seg Neutrophils # Man (1.8-7.7) K/mm3 Lymphocytes # (Manual) (1.2-5.4) K/mm3 POC ABG pH 7.157 L (7.35-7.45) POC ABG pCO2 > 70 H (35-45) POC ABG pO2 79 L (80-105) Chloride (98-107) mmol/L BUN (7-17) mg/dL Creatinine (0.7-1.2) mg/dL Glucose (65-100) mg/dL POC Glucose 135 H 128 H (70-105) AST (5-40) units/L ALT (7-56) units/L Alkaline Phosphatase (35-129) units/L Total Protein (6.3-8.2) g/dL Albumin (3.9-5) g/dL Triglycerides (2-149) mg/dL 03/12/19 03/12/19 03/12/19 Range/Units 05:30 05:30 05:30 WBC 31.8 H (4.5-11.0) K/mm3 RBC 3.36 L (3.65-5.03) M/mm3 Hgb 8.0 L (10.1-14.3) gm/dl Hct 28.0 L (30.3-42.9) % MCH 24 L (28-32) pg MCHC 29 L (30-34) % RDW 22.7 H (13.2-15.2) % Seg Neuts % (Manual) 97.5 H (40.0-70.0) % Lymphocytes % (Manual) 1.5 L (13.4-35.0) % Nucleated RBC % 8.0 H (0.0-0.9) % Seg Neutrophils # Man 31.0 H (1.8-7.7) K/mm3 Lymphocytes # (Manual) 0.5 L (1.2-5.4) K/mm3 POC ABG pH (7.35-7.45) POC ABG pCO2 (35-45) POC ABG pO2 (80-105) Chloride 93.8 L (98-107) mmol/L BUN 59 H (7-17) mg/dL Creatinine 2.9 H (0.7-1.2) mg/dL Glucose 131 H (65-100) mg/dL POC Glucose (70-105) AST 515 H (5-40) units/L ALT 332 H (7-56) units/L Alkaline Phosphatase 994 H (35-129) units/L Total Protein 5.9 L (6.3-8.2) g/dL Albumin 2.3 L (3.9-5) g/dL Triglycerides 366 H (2-149) mg/dL 03/12/19 03/12/19 03/12/19 Range/Units 05:56 12:01 12:03 WBC (4.5-11.0) K/mm3 RBC (3.65-5.03) M/mm3 Hgb (10.1-14.3) gm/dl Hct (30.3-42.9) % MCH (28-32) pg MCHC (30-34) % RDW (13.2-15.2) % Seg Neuts % (Manual) (40.0-70.0) % Lymphocytes % (Manual) (13.4-35.0) % Nucleated RBC % (0.0-0.9) % Seg Neutrophils # Man (1.8-7.7) K/mm3 Lymphocytes # (Manual) (1.2-5.4) K/mm3 POC ABG pH 7.119 L (7.35-7.45) POC ABG pCO2 (35-45) POC ABG pO2 65 L (80-105) Chloride (98-107) mmol/L BUN (7-17) mg/dL Creatinine (0.7-1.2) mg/dL Glucose (65-100) mg/dL POC Glucose 124 H 135 H (70-105) AST (5-40) units/L ALT (7-56) units/L Alkaline Phosphatase (35-129) units/L Total Protein (6.3-8.2) g/dL Albumin (3.9-5) g/dL Triglycerides (2-149) mg/dL
[2019-03-12] MEDS: VASOPRESSIN 20 UNIT in SODIUM CHLORIDE 0.9% 100 ML IV SCH ×2 (12:47→21:38)
[2019-03-12 12:54] LABS: Myeloperoxidase Antibody <1.0 AI (<1.0)
--- NOTE | 2019-03-12 12:58 | Progress Note ---
Assessment and Plan Acute hypoxemic-hypercapnic respiratory failure Sepsis, possible from left lung pneumonia Right pleural effusion Metastatic breast cancer Hypernatremia Poor medical compliance Obesity - repet serum triglceride level in am - begin Vasopressin - discontinue Lawson catheter if OK with nephrology team - taper Solumedrol to 40 mg IV q12h - reduced FiO2 to 75% from 85% - continue PCV/AC mode - continue Reglan for GI motility - continue tubes feeds and advance back to goal - keep Peep at 14 cm H2O - continue to wean FIO2 for O2 sats >90% - continue Propofol gtt to improve tolerance / reduce dyssynchrony - bilateral lower extremity Doppler's negative for DVT - continue fentanyl gtt and titrate for RASS 0 to -1 - continue enteral nutrition at goal rate as tolerated - continue scopolamine patch for secretion control (+ Sue acadelineely) - wean vasopressors for target MAP > 65 mmHg - continue daily SAT's and SBT assessment as tolerated in am - CT head on hold till more stable - continue lawson catheter in this critically ill patient with quickly progressing SELAM - VAP bundle addressed (Aspiration precautions, HOB > 40 degrees) - continue Lung protective strategies - continue bronchodilators with pulmonary hygiene per RT - daily CXR's & ABG's acutely - Azotemia per nephrology team - continue to avoid nephrotoxins and adjust all medications fro GFR and CrCL - continue enteral nutrition and advance to goal rate as tolerated (hold for tentative extubation) - continue agitation management / Pain management per CPOT - complete empiric antibiotics for PNA - continue VTE prophylaxis - continue stress ulcer prophylaxis with PPI - continue accuchecks with glycemic control for SSI (While critically ill target blood glucose of 140-180 mg/dL; avoid hypoglycemia) - Continue mobility protocol for pressure ulcer prevention - Continue to monitor hemodynamics closely - Monitor electrolyte profile closely and replete as indicated - continue chronic home medications per attending and as clinically indicated - s/p thoracentesis (1400 ml's drained); follow studies - Wound care per RN & WCT - continue Free water for hypernatremia - continue other care per attending / other consultants ...... care plan discussed with at bedside CONDITION: CRITICAL PROGNOSIS: GUARDED-POOR CODE STATUS: FULL CODE The high probability of a clinically significant, sudden or life-threatening deterioration of the [cardiac, respiratory & neurologic] system(s) required my full and direct attention, intervention and personal management. The aggregate critical care time was [35] minutes without overlap. Time includes spent on; [x] Data Review and interpretation [x] Patient assessment and monitoring of vital signs [x] Documentation [x] Medication orders and management Subjective Date of service: 03/12/19 Principal diagnosis: Ac. hypoxemic resp failure; Sev Sepsis; R. pleural effusion; Met. breast CA Interval history: Patient is seen today for: Acute hypoxemic-hypercapnic respiratory failure; Sepsis, possible from left lung pneumonia; Right pleural effusion; Metastatic breast cancer; Hypernatremia; Poor medical compliance; Obesity Seen and examined at bedside; 24hour events reviewed; nursing and respiratory care staff consulted; no adverse overnight events reported to me; resting in bed; Objective Vital Signs - 12hr 03/12/19 03/12/19 03/12/19 01:00 01:15 01:30 Temperature Pulse Rate 115 H 115 H 116 H Pulse Rate [ From Monitor] Respiratory 35 H 35 H 35 H Rate Blood Pressure 103/52 102/53 103/53 O2 Sat by Pulse 92 91 91 Oximetry 03/12/19 03/12/19 03/12/19 01:45 02:00 02:15 Temperature Pulse Rate 115 H 117 H 115 H Pulse Rate [ From Monitor] Respiratory 35 H 35 H 36 H Rate Blood Pressure 98/52 95/53 97/52 O2 Sat by Pulse 91 91 93 Oximetry 03/12/19 03/12/19 03/12/19 02:30 02:45 03:00 Temperature Pulse Rate 115 H 116 H 116 H Pulse Rate [ From Monitor] Respiratory 35 H 35 H 35 H Rate Blood Pressure 101/52 97/54 97/53 O2 Sat by Pulse 92 92 93 Oximetry 03/12/19 03/12/19 03/12/19 03:15 03:23 03:30 Temperature Pulse Rate 114 H 115 H 115 H Pulse Rate [ From Monitor] Respiratory 36 H 35 H Rate Blood Pressure 96/50 96/50 98/49 O2 Sat by Pulse 92 93 93 Oximetry 03/12/19 03/12/19 03/12/19 03:45 03:52 04:00 Temperature 99.1 F Pulse Rate 116 H 115 H Pulse Rate [ 116 H From Monitor] Respiratory 35 H 34 H Rate Blood Pressure 92/48 89/50 O2 Sat by Pulse 94 94 Oximetry 03/12/19 03/12/19 03/12/19 04:15 04:30 04:46 Temperature Pulse Rate 116 H 116 H 119 H Pulse Rate [ From Monitor] Respiratory 35 H 35 H 16 Rate Blood Pressure 87/49 87/49 87/49 O2 Sat by Pulse 90 88 87 Oximetry 03/12/19 03/12/19 03/12/19 05:00 05:15 05:30 Temperature Pulse Rate 116 H 115 H 115 H Pulse Rate [ From Monitor] Respiratory 35 H 26 H 35 H Rate Blood Pressure 83/48 81/44 81/48 O2 Sat by Pulse 93 93 91 Oximetry 03/12/19 03/12/19 03/12/19 05:45 06:00 06:15 Temperature Pulse Rate 116 H 116 H 117 H Pulse Rate [ From Monitor] Respiratory 36 H 18 34 H Rate Blood Pressure 88/45 102/46 79/40 O2 Sat by Pulse 92 93 98 Oximetry 03/12/19 03/12/19 03/12/19 06:30 06:45 07:00 Temperature Pulse Rate 115 H 115 H 116 H Pulse Rate [ From Monitor] Respiratory 35 H 36 H 35 H Rate Blood Pressure 92/47 96/48 94/47 O2 Sat by Pulse 92 89 90 Oximetry 03/12/19 03/12/19 03/12/19 07:15 07:30 07:45 Temperature Pulse Rate 115 H 116 H 117 H Pulse Rate [ From Monitor] Respiratory 35 H 37 H 36 H Rate Blood Pressure 94/49 104/52 90/48 O2 Sat by Pulse 90 88 Oximetry 03/12/19 03/12/19 03/12/19 08:00 08:15 08:30 Temperature 98.2 F Pulse Rate 117 H 118 H 120 H Pulse Rate [ 110 H From Monitor] Respiratory 35 H 34 H 35 H Rate Blood Pressure 89/48 100/54 91/51 O2 Sat by Pulse 89 89 91 Oximetry 03/12/19 03/12/19 03/12/19 08:45 09:00 09:09 Temperature Pulse Rate 120 H 111 H 122 H Pulse Rate [ From Monitor] Respiratory 35 H 35 H Rate Blood Pressure 77/46 81/52 138/73 O2 Sat by Pulse 93 88 93 Oximetry 03/12/19 03/12/19 03/12/19 09:15 09:30 09:45 Temperature Pulse Rate 121 H 121 H 120 H Pulse Rate [ From Monitor] Respiratory 35 H 36 H 34 H Rate Blood Pressure 86/46 85/46 95/52 O2 Sat by Pulse 93 93 Oximetry 03/12/19 03/12/19 03/12/19 10:00 10:15 10:30 Temperature Pulse Rate 121 H 121 H 121 H Pulse Rate [ From Monitor] Respiratory 35 H 35 H 35 H Rate Blood Pressure 98/50 103/53 104/52 O2 Sat by Pulse 92 90 88 Oximetry 03/12/19 03/12/19 03/12/19 10:45 11:00 11:15 Temperature Pulse Rate 121 H 121 H 121 H Pulse Rate [ From Monitor] Respiratory 35 H 35 H 35 H Rate Blood Pressure 110/54 102/50 107/52 O2 Sat by Pulse 89 Oximetry 03/12/19 03/12/19 03/12/19 11:30 11:53 12:00 Temperature 97.5 F L Pulse Rate 118 H 123 H Pulse Rate [ From Monitor] Respiratory 35 H Rate Blood Pressure 119/58 104/54 O2 Sat by Pulse 85 84 Oximetry Constitutional: lethargic, appears uncomfortable, other (middle aged obese AAF with moderately increased respiratory distress on MVS) Eyes: icteric ENT: other (Small bowel feeding tube in place, 7.[address] 23cm at the lip) Neck: supple, no lymphadenopathy, no JVD, other (Left IJ CVC; large neck circumference) Effort: mildly labored Ascultation: Bilateral: diminished breath sounds, rales Percussion: Bilateral: not dull Cardiovascular: regular rate and rhythm, other (Tachycardia S1,S2, no murmurs. Anterior chest wall dressing) Gastrointestinal: normoactive bowel sounds, soft, non-tender, non-distended Integumentary: other (Chest wall wound) Extremities: no cyanosis, pulses normal, no ischemia or petechiae, edema, other (edema) Neurologic: pupils equal and round, other (sedated, unable to assess) Psychiatric: other (unable to assess re: AMS) CBC and BMP: 03/12/19 05:30 03/12/19 05:30 ABG, PT/INR, D-dimer: ABG POC ABG pH 7.119 (7.35-7.45) L 03/12/19 12:01 ABG pH 7.335 pH Units (7.350-7.450) L 03/03/19 05:25 ABG pCO2 61.3 mm Hg 03/03/19 05:25 POC ABG pO2 65 (80-105) L 03/12/19 12:01 ABG pO2 89.2 mm Hg (80.0-90.0) 03/03/19 05:25 POC ABG HCO3 28.8 (22-26 mml/L) 03/12/19 12:01 POC ABG Total CO2 31 (23-27mmol/L) 03/12/19 12:01 POC ABG O2 Sat 82 03/12/19 12:01 ABG O2 Saturation 97.0 % (95.0-99.0) 03/03/19 05:25 PT/INR, D-dimer PT 14.8 Sec. (12.2-14.9) 02/27/19 12:38 INR 1.17 (0.87-1.13) H 02/27/19 12:38 D-Dimer 5778.32 ng/mlDDU (0-234) H 02/27/19 12:38 Abnormal lab findings: Abnormal Labs 02/27/19 02/27/19 02/27/19 11:33 11:33 11:33 WBC 18.6 H RBC 3.60 L Hgb 8.7 L Hct 28.8 L MCH 24 L MCHC RDW 23.0 H Plt Count 507 H Lymph % (Auto) 12.9 L [place] # 1.3 H Seg Neutrophils % 79.7 H Seg Neuts % (Manual) Lymphocytes % (Manual) Nucleated RBC % Seg Neutrophils # 14.8 H Seg Neutrophils # Man Lymphocytes # (Manual) Monocytes # (Manual) INR D-Dimer POC ABG pH ABG pH POC ABG pCO2 POC ABG pO2 ABG pO2 ABG HCO3 ABG O2 Saturation ABG Base Excess ABG Hemoglobin Oxyhemoglobin Sodium Potassium Chloride 96.8 L Carbon Dioxide BUN 28 H Creatinine 0.5 L Glucose 169 H POC Glucose Lactic Acid 3.40 H* Phosphorus Magnesium AST ALT Alkaline Phosphatase Ammonia Total Creatine Kinase 197 H CK-MB (CK-2) 4.1 H NT-Pro-B Natriuret Pep Total Protein Albumin Triglycerides Free T4 Urine Creatinine Urine Chloride Crossmatch 02/27/19 02/27/19 02/27/19 11:33 11:45 11:47 WBC RBC Hgb Hct MCH MCHC RDW Plt Count Lymph % (Auto) [place] # Seg Neutrophils % Seg Neuts % (Manual) Lymphocytes % (Manual) Nucleated RBC % Seg Neutrophils # Seg Neutrophils # Man Lymphocytes # (Manual) Monocytes # (Manual) INR D-Dimer POC ABG pH ABG pH POC ABG pCO2 POC ABG pO2 ABG pO2 ABG HCO3 ABG O2 Saturation ABG Base Excess ABG Hemoglobin Oxyhemoglobin Sodium Potassium Chloride Carbon Dioxide BUN Creatinine Glucose POC Glucose 169 H Lactic Acid Phosphorus Magnesium AST 95 H ALT Alkaline Phosphatase 130 H Ammonia Total Creatine Kinase CK-MB (CK-2) NT-Pro-B Natriuret Pep Total Protein Albumin 2.9 L Triglycerides Free T4 Urine Creatinine Urine Chloride Crossmatch See Detail 02/27/19 02/27/19 02/27/19 12:30 12:38 14:08 WBC RBC Hgb Hct MCH MCHC RDW Plt Count Lymph % (Auto) [place] # Seg Neutrophils % Seg Neuts % (Manual) Lymphocytes % (Manual) Nucleated RBC % Seg Neutrophils # Seg Neutrophils # Man Lymphocytes # (Manual) Monocytes # (Manual) INR 1.17 H D-Dimer 5778.32 H POC ABG pH 7.326 L ABG pH POC ABG pCO2 POC ABG pO2 129 H ABG pO2 ABG HCO3 ABG O2 Saturation ABG Base Excess ABG Hemoglobin Oxyhemoglobin Sodium Potassium Chloride Carbon Dioxide BUN Creatinine Glucose POC Glucose Lactic Acid 3.00 H* Phosphorus Magnesium AST ALT Alkaline Phosphatase Ammonia Total Creatine Kinase CK-MB (CK-2) NT-Pro-B Natriuret Pep Total Protein Albumin Triglycerides Free T4 Urine Creatinine Urine Chloride Crossmatch 02/27/19 02/27/19 02/27/19 15:03 16:06 18:08 WBC RBC Hgb Hct MCH MCHC RDW Plt Count Lymph % (Auto) [place] # Seg Neutrophils % Seg Neuts % (Manual) Lymphocytes % (Manual) Nucleated RBC % Seg Neutrophils # Seg Neutrophils # Man Lymphocytes # (Manual) Monocytes # (Manual) INR D-Dimer POC ABG pH ABG pH POC ABG pCO2 68.8 H POC ABG pO2 225 H ABG pO2 ABG HCO3 ABG O2 Saturation ABG Base Excess ABG Hemoglobin Oxyhemoglobin Sodium Potassium Chloride Carbon Dioxide BUN Creatinine Glucose POC Glucose Lactic Acid 3.20 H* 2.80 H* Phosphorus Magnesium AST ALT Alkaline Phosphatase Ammonia Total Creatine Kinase CK-MB (CK-2) NT-Pro-B Natriuret Pep Total Protein Albumin Triglycerides Free T4 Urine Creatinine Urine Chloride Crossmatch 02/27/19 02/28/19 02/28/19 18:12 10:00 10:00 WBC 13.3 H RBC 3.39 L Hgb 8.1 L Hct 26.7 L MCH 24 L MCHC RDW 22.5 H Plt Count Lymph % (Auto) [place] # Seg Neutrophils % Seg Neuts % (Manual) Lymphocytes % (Manual) Nucleated RBC % Seg Neutrophils # Seg Neutrophils # Man Lymphocytes # (Manual) Monocytes # (Manual) INR D-Dimer POC ABG pH ABG pH POC ABG pCO2 POC ABG pO2 ABG pO2 ABG HCO3 ABG O2 Saturation ABG Base Excess ABG Hemoglobin Oxyhemoglobin Sodium 146 H Potassium Chloride Carbon Dioxide 32 H BUN 32 H Creatinine 0.5 L Glucose 111 H POC Glucose Lactic Acid 2.30 H* Phosphorus Magnesium AST 93 H ALT Alkaline Phosphatase Ammonia Total Creatine Kinase CK-MB (CK-2) NT-Pro-B Natriuret Pep Total Protein Albumin 2.6 L Triglycerides Free T4 Urine Creatinine Urine Chloride Crossmatch 02/28/19 03/01/19 03/01/19 10:26 00:05 05:00 WBC 20.2 H RBC Hgb 9.0 L Hct 29.9 L MCH 24 L MCHC RDW 22.8 H Plt Count 498 H Lymph % (Auto) [place] # Seg Neutrophils % Seg Neuts % (Manual) Lymphocytes % (Manual) Nucleated RBC % Seg Neutrophils # Seg Neutrophils # Man Lymphocytes # (Manual) Monocytes # (Manual) INR D-Dimer POC ABG pH ABG pH POC ABG pCO2 54.2 H POC ABG pO2 ABG pO2 ABG HCO3 ABG O2 Saturation ABG Base Excess ABG Hemoglobin Oxyhemoglobin Sodium Potassium Chloride Carbon Dioxide BUN Creatinine Glucose POC Glucose 167 H Lactic Acid Phosphorus Magnesium AST ALT Alkaline Phosphatase Ammonia Total Creatine Kinase CK-MB (CK-2) NT-Pro-B Natriuret Pep Total Protein Albumin Triglycerides Free T4 Urine Creatinine Urine Chloride Crossmatch 03/01/19 03/01/19 03/01/19 05:00 12:36 17:31 WBC RBC Hgb Hct MCH MCHC RDW Plt Count Lymph % (Auto) [place] # Seg Neutrophils % Seg Neuts % (Manual) Lymphocytes % (Manual) Nucleated RBC % Seg Neutrophils # Seg Neutrophils # Man Lymphocytes # (Manual) Monocytes # (Manual) INR D-Dimer POC ABG pH ABG pH POC ABG pCO2 POC ABG pO2 ABG pO2 ABG HCO3 ABG O2 Saturation ABG Base Excess ABG Hemoglobin Oxyhemoglobin Sodium 148 H Potassium Chloride Carbon Dioxide 37 H BUN 43 H Creatinine 0.6 L Glucose 150 H POC Glucose 140 H 157 H Lactic Acid Phosphorus Magnesium AST ALT Alkaline Phosphatase Ammonia Total Creatine Kinase CK-MB (CK-2) NT-Pro-B Natriuret Pep Total Protein Albumin Triglycerides Free T4 Urine Creatinine Urine Chloride Crossmatch 03/02/19 03/02/19 03/02/19 04:29 04:32 05:27 WBC RBC Hgb Hct MCH MCHC RDW Plt Count Lymph % (Auto) [place] # Seg Neutrophils % Seg Neuts % (Manual) Lymphocytes % (Manual) Nucleated RBC % Seg Neutrophils # Seg Neutrophils # Man Lymphocytes # (Manual) Monocytes # (Manual) INR D-Dimer POC ABG pH 7.056 L ABG pH POC ABG pCO2 POC ABG pO2 64 L ABG pO2 ABG HCO3 ABG O2 Saturation ABG Base Excess ABG Hemoglobin Oxyhemoglobin Sodium Potassium Chloride Carbon Dioxide BUN Creatinine Glucose POC Glucose 161 H Lactic Acid Phosphorus Magnesium AST ALT Alkaline Phosphatase Ammonia Total Creatine Kinase CK-MB (CK-2) NT-Pro-B Natriuret Pep 2143 H Total Protein Albumin Triglycerides Free T4 Urine Creatinine Urine Chloride Crossmatch 03/02/19 03/02/19 03/02/19 05:27 05:27 05:27 WBC 17.8 H RBC 3.50 L Hgb 8.5 L Hct 29.5 L MCH 24 L MCHC 29 L RDW 21.9 H Plt Count Lymph % (Auto) [place] # Seg Neutrophils % Seg Neuts % (Manual) 94.0 H Lymphocytes % (Manual) 2.0 L Nucleated RBC % 1.0 H Seg Neutrophils # Seg Neutrophils # Man 16.7 H Lymphocytes # (Manual) 0.4 L Monocytes # (Manual) INR D-Dimer POC ABG pH ABG pH POC ABG pCO2 POC ABG pO2 ABG pO2 ABG HCO3 ABG O2 Saturation ABG Base Excess ABG Hemoglobin Oxyhemoglobin Sodium 156 H D Potassium 5.4 H Chloride 108.6 H Carbon Dioxide 39 H BUN 60 H Creatinine Glucose 159 H POC Glucose Lactic Acid Phosphorus Magnesium AST 164 H ALT Alkaline Phosphatase 164 H Ammonia 81.0 H Total Creatine Kinase CK-MB (CK-2) NT-Pro-B Natriuret Pep Total Protein 6.2 L Albumin 2.2 L Triglycerides Free T4 Urine Creatinine Urine Chloride Crossmatch 03/02/19 03/02/19 03/02/19 05:27 06:04 10:56 WBC RBC Hgb Hct MCH MCHC RDW Plt Count Lymph % (Auto) [place] # Seg Neutrophils % Seg Neuts % (Manual) Lymphocytes % (Manual) Nucleated RBC % Seg Neutrophils # Seg Neutrophils # Man Lymphocytes # (Manual) Monocytes # (Manual) INR D-Dimer POC ABG pH ABG pH 7.239 L POC ABG pCO2 POC ABG pO2 ABG pO2 60.0 L 103.9 H ABG HCO3 36.6 H 32.9 H ABG O2 Saturation 88.3 L ABG Base Excess 7.3 H 7.7 H ABG Hemoglobin 9.1 L 9.0 L Oxyhemoglobin 86.3 L Sodium Potassium Chloride Carbon Dioxide BUN Creatinine Glucose POC Glucose Lactic Acid Phosphorus 6.90 H Magnesium 2.80 H AST ALT Alkaline Phosphatase Ammonia Total Creatine Kinase CK-MB (CK-2) NT-Pro-B Natriuret Pep Total Protein Albumin Triglycerides Free T4 Urine Creatinine Urine Chloride Crossmatch 03/02/19 03/02/19 03/02/19 13:58 23:40 Unknown WBC RBC Hgb Hct MCH MCHC RDW Plt Count Lymph % (Auto) [place] # Seg Neutrophils % Seg Neuts % (Manual) Lymphocytes % (Manual) Nucleated RBC % Seg Neutrophils # Seg Neutrophils # Man Lymphocytes # (Manual) Monocytes # (Manual) INR D-Dimer POC ABG pH ABG pH POC ABG pCO2 POC ABG pO2 ABG pO2 ABG HCO3 ABG O2 Saturation ABG Base Excess ABG Hemoglobin Oxyhemoglobin Sodium Potassium Chloride Carbon Dioxide BUN Creatinine Glucose POC Glucose 127 H 161 H Lactic Acid Phosphorus Magnesium AST ALT Alkaline Phosphatase Ammonia Total Creatine Kinase CK-MB (CK-2) NT-Pro-B Natriuret Pep Total Protein Albumin Triglycerides Free T4 Urine Creatinine 218.2 H Urine Chloride Crossmatch 03/03/19 03/03/19 03/03/19 05:00 05:00 05:25 WBC 17.8 H RBC 3.62 L Hgb 8.8 L Hct 28.9 L MCH 24 L MCHC RDW 22.8 H Plt Count Lymph % (Auto) [place] # Seg Neutrophils % Seg Neuts % (Manual) 96.0 H Lymphocytes % (Manual) 1.0 L Nucleated RBC % 3.0 H Seg Neutrophils # Seg Neutrophils # Man 17.1 H Lymphocytes # (Manual) 0.2 L Monocytes # (Manual) INR D-Dimer POC ABG pH ABG pH 7.335 L POC ABG pCO2 POC ABG pO2 ABG pO2 ABG HCO3 32.0 H ABG O2 Saturation ABG Base Excess 5.2 H ABG Hemoglobin 8.2 L Oxyhemoglobin 94.9 L Sodium 160 H Potassium 3.5 L D Chloride 113.7 H Carbon Dioxide BUN 90 H Creatinine 1.7 H D Glucose 149 H POC Glucose Lactic Acid Phosphorus Magnesium 2.90 H AST 624 H ALT 211 H Alkaline Phosphatase 416 H Ammonia Total Creatine Kinase CK-MB (CK-2) NT-Pro-B Natriuret Pep Total Protein 6.2 L Albumin 2.2 L Triglycerides Free T4 Urine Creatinine Urine Chloride Crossmatch 03/03/19 03/03/19 03/03/19 05:41 12:27 15:54 WBC RBC Hgb Hct MCH MCHC RDW Plt Count Lymph % (Auto) [place] # Seg Neutrophils % Seg Neuts % (Manual) Lymphocytes % (Manual) Nucleated RBC % Seg Neutrophils # Seg Neutrophils # Man Lymphocytes # (Manual) Monocytes # (Manual) INR D-Dimer POC ABG pH ABG pH POC ABG pCO2 POC ABG pO2 ABG pO2 ABG HCO3 ABG O2 Saturation ABG Base Excess ABG Hemoglobin Oxyhemoglobin Sodium Potassium Chloride Carbon Dioxide BUN Creatinine Glucose POC Glucose 150 H 167 H Lactic Acid Phosphorus Magnesium AST ALT Alkaline Phosphatase Ammonia Total Creatine Kinase CK-MB (CK-2) NT-Pro-B Natriuret Pep Total Protein Albumin Triglycerides Free T4 0.50 L Urine Creatinine Urine Chloride Crossmatch 03/03/19 03/03/19 03/04/19 17:32 23:57 04:11 WBC RBC Hgb Hct MCH MCHC RDW Plt Count Lymph % (Auto) [place] # Seg Neutrophils % Seg Neuts % (Manual) Lymphocytes % (Manual) Nucleated RBC % Seg Neutrophils # Seg Neutrophils # Man Lymphocytes # (Manual) Monocytes # (Manual) INR D-Dimer POC ABG pH 7.332 L ABG pH POC ABG pCO2 57.1 H POC ABG pO2 ABG pO2 ABG HCO3 ABG O2 Saturation ABG Base Excess ABG Hemoglobin Oxyhemoglobin Sodium Potassium Chloride Carbon Dioxide BUN Creatinine Glucose POC Glucose 165 H 202 H Lactic Acid Phosphorus Magnesium AST ALT Alkaline Phosphatase Ammonia Total Creatine Kinase CK-MB (CK-2) NT-Pro-B Natriuret Pep Total Protein Albumin Triglycerides Free T4 Urine Creatinine Urine Chloride Crossmatch 03/04/19 03/04/19 03/04/19 04:38 04:38 05:30 WBC 23.0 H RBC 3.36 L Hgb 7.9 L Hct 26.6 L MCH 24 L MCHC RDW 23.1 H Plt Count Lymph % (Auto) [place] # Seg Neutrophils % Seg Neuts % (Manual) 98.0 H Lymphocytes % (Manual) 0 L Nucleated RBC % Seg Neutrophils # Seg Neutrophils # Man 22.5 H Lymphocytes # (Manual) 0.0 L Monocytes # (Manual) INR D-Dimer POC ABG pH ABG pH POC ABG pCO2 POC ABG pO2 ABG pO2 ABG HCO3 ABG O2 Saturation ABG Base Excess ABG Hemoglobin Oxyhemoglobin Sodium 151 H D Potassium Chloride 110.4 H Carbon Dioxide BUN 103 H Creatinine 2.0 H Glucose 177 H POC Glucose 172 H Lactic Acid Phosphorus Magnesium AST 244 H ALT 159 H Alkaline Phosphatase 365 H Ammonia Total Creatine Kinase CK-MB (CK-2) NT-Pro-B Natriuret Pep Total Protein 5.9 L Albumin 2.1 L Triglycerides Free T4 Urine Creatinine Urine Chloride Crossmatch 03/04/19 03/04/19 03/04/19 12:10 12:39 18:11 WBC RBC Hgb Hct MCH MCHC RDW Plt Count Lymph % (Auto) [place] # Seg Neutrophils % Seg Neuts % (Manual) Lymphocytes % (Manual) Nucleated RBC % Seg Neutrophils # Seg Neutrophils # Man Lymphocytes # (Manual) Monocytes # (Manual) INR D-Dimer POC ABG pH ABG pH POC ABG pCO2 POC ABG pO2 ABG pO2 ABG HCO3 ABG O2 Saturation ABG Base Excess ABG Hemoglobin Oxyhemoglobin Sodium Potassium Chloride Carbon Dioxide BUN Creatinine Glucose POC Glucose 226 H 173 H Lactic Acid Phosphorus Magnesium AST ALT Alkaline Phosphatase Ammonia Total Creatine Kinase CK-MB (CK-2) NT-Pro-B Natriuret Pep Total Protein Albumin Triglycerides Free T4 Urine Creatinine 185.9 H Urine Chloride 10.2 L Crossmatch 03/04/19 03/05/19 03/05/19 23:24 04:16 04:28 WBC 23.8 H RBC 3.08 L Hgb 7.5 L Hct 25.0 L MCH 24 L MCHC RDW 23.0 H Plt Count Lymph % (Auto) [place] # Seg Neutrophils % Seg Neuts % (Manual) 96.0 H Lymphocytes % (Manual) 3.0 L Nucleated RBC % 1.0 H Seg Neutrophils # Seg Neutrophils # Man 22.8 H Lymphocytes # (Manual) 0.7 L Monocytes # (Manual) INR D-Dimer POC ABG pH 7.274 L ABG pH POC ABG pCO2 59.7 H POC ABG pO2 107 H ABG pO2 ABG HCO3 ABG O2 Saturation ABG Base Excess ABG Hemoglobin Oxyhemoglobin Sodium Potassium Chloride Carbon Dioxide BUN Creatinine Glucose POC Glucose 184 H Lactic Acid Phosphorus Magnesium AST ALT Alkaline Phosphatase Ammonia Total Creatine Kinase CK-MB (CK-2) NT-Pro-B Natriuret Pep Total Protein Albumin Triglycerides Free T4 Urine Creatinine Urine Chloride Crossmatch 03/05/19 03/05/19 03/05/19 04:28 04:28 05:29 WBC RBC Hgb Hct MCH MCHC RDW Plt Count Lymph % (Auto) [place] # Seg Neutrophils % Seg Neuts % (Manual) Lymphocytes % (Manual) Nucleated RBC % Seg Neutrophils # Seg Neutrophils # Man Lymphocytes # (Manual) Monocytes # (Manual) INR D-Dimer POC ABG pH ABG pH POC ABG pCO2 POC ABG pO2 ABG pO2 ABG HCO3 ABG O2 Saturation ABG Base Excess ABG Hemoglobin Oxyhemoglobin Sodium 147 H Potassium Chloride 107.9 H Carbon Dioxide BUN 112 H Creatinine 2.3 H Glucose 153 H POC Glucose 147 H Lactic Acid Phosphorus Magnesium AST 188 H ALT 138 H Alkaline Phosphatase 384 H Ammonia 71.0 H Total Creatine Kinase CK-MB (CK-2) NT-Pro-B Natriuret Pep Total Protein 6.0 L Albumin 2.2 L Triglycerides Free T4 Urine Creatinine Urine Chloride Crossmatch 03/05/19 03/05/19 03/05/19 12:00 17:44 23:48 WBC RBC Hgb Hct MCH MCHC RDW Plt Count Lymph % (Auto) [place] # Seg Neutrophils % Seg Neuts % (Manual) Lymphocytes % (Manual) Nucleated RBC % Seg Neutrophils # Seg Neutrophils # Man Lymphocytes # (Manual) Monocytes # (Manual) INR D-Dimer POC ABG pH ABG pH POC ABG pCO2 POC ABG pO2 ABG pO2 ABG HCO3 ABG O2 Saturation ABG Base Excess ABG Hemoglobin Oxyhemoglobin Sodium Potassium Chloride Carbon Dioxide BUN Creatinine Glucose POC Glucose 181 H 111 H 120 H Lactic Acid Phosphorus Magnesium AST ALT Alkaline Phosphatase Ammonia Total Creatine Kinase CK-MB (CK-2) NT-Pro-B Natriuret Pep Total Protein Albumin Triglycerides Free T4 Urine Creatinine Urine Chloride Crossmatch 03/06/19 03/06/19 03/06/19 04:55 04:55 05:19 WBC 26.5 H RBC 3.28 L Hgb 7.7 L Hct 26.4 L MCH 24 L MCHC 29 L RDW 23.0 H Plt Count Lymph % (Auto) [place] # Seg Neutrophils % Seg Neuts % (Manual) 98.0 H Lymphocytes % (Manual) 2.0 L Nucleated RBC % 2.0 H Seg Neutrophils # Seg Neutrophils # Man 26.0 H Lymphocytes # (Manual) 0.5 L Monocytes # (Manual) INR D-Dimer POC ABG pH 7.248 L ABG pH POC ABG pCO2 65.9 H POC ABG pO2 79 L ABG pO2 ABG HCO3 ABG O2 Saturation ABG Base Excess ABG Hemoglobin Oxyhemoglobin Sodium 147 H Potassium Chloride Carbon Dioxide BUN 132 H Creatinine 2.6 H Glucose 128 H POC Glucose Lactic Acid Phosphorus Magnesium AST 207 H ALT 144 H Alkaline Phosphatase 529 H Ammonia Total Creatine Kinase CK-MB (CK-2) NT-Pro-B Natriuret Pep Total Protein 6.1 L Albumin 2.4 L Triglycerides Free T4 Urine Creatinine Urine Chloride Crossmatch 03/06/19 03/06/19 03/06/19 05:35 13:06 15:20 WBC RBC Hgb Hct MCH MCHC RDW Plt Count Lymph % (Auto) [place] # Seg Neutrophils % Seg Neuts % (Manual) Lymphocytes % (Manual) Nucleated RBC % Seg Neutrophils # Seg Neutrophils # Man Lymphocytes # (Manual) Monocytes # (Manual) INR D-Dimer POC ABG pH 7.263 L ABG pH POC ABG pCO2 64.7 H POC ABG pO2 67 L ABG pO2 ABG HCO3 ABG O2 Saturation ABG Base Excess ABG Hemoglobin Oxyhemoglobin Sodium Potassium Chloride Carbon Dioxide BUN Creatinine Glucose POC Glucose 113 H 123 H Lactic Acid Phosphorus Magnesium AST ALT Alkaline Phosphatase Ammonia Total Creatine Kinase CK-MB (CK-2) NT-Pro-B Natriuret Pep Total Protein Albumin Triglycerides Free T4 Urine Creatinine Urine Chloride Crossmatch 03/06/19 03/06/19 03/07/19 18:41 23:33 04:34 WBC RBC Hgb Hct MCH MCHC RDW Plt Count Lymph % (Auto) [place] # Seg Neutrophils % Seg Neuts % (Manual) Lymphocytes % (Manual) Nucleated RBC % Seg Neutrophils # Seg Neutrophils # Man Lymphocytes # (Manual) Monocytes # (Manual) INR D-Dimer POC ABG pH 7.258 L ABG pH POC ABG pCO2 65.6 H POC ABG pO2 73 L ABG pO2 ABG HCO3 ABG O2 Saturation ABG Base Excess ABG Hemoglobin Oxyhemoglobin Sodium Potassium Chloride Carbon Dioxide BUN Creatinine Glucose POC Glucose 131 H 141 H Lactic Acid Phosphorus Magnesium AST ALT Alkaline Phosphatase Ammonia Total Creatine Kinase CK-MB (CK-2) NT-Pro-B Natriuret Pep Total Protein Albumin Triglycerides Free T4 Urine Creatinine Urine Chloride Crossmatch 03/07/19 03/07/19 03/07/19 05:13 11:47 12:19 WBC RBC Hgb Hct MCH MCHC RDW Plt Count Lymph % (Auto) [place] # Seg Neutrophils % Seg Neuts % (Manual) Lymphocytes % (Manual) Nucleated RBC % Seg Neutrophils # Seg Neutrophils # Man Lymphocytes # (Manual) Monocytes # (Manual) INR D-Dimer POC ABG pH ABG pH POC ABG pCO2 POC ABG pO2 ABG pO2 ABG HCO3 ABG O2 Saturation ABG Base Excess ABG Hemoglobin Oxyhemoglobin Sodium Potassium Chloride Carbon Dioxide BUN Creatinine Glucose POC Glucose 122 H 128 H 132 H Lactic Acid Phosphorus Magnesium AST ALT Alkaline Phosphatase Ammonia Total Creatine Kinase CK-MB (CK-2) NT-Pro-B Natriuret Pep Total Protein Albumin Triglycerides Free T4 Urine Creatinine Urine Chloride Crossmatch 03/07/19 03/07/19 03/07/19 16:19 17:45 23:14 WBC RBC Hgb Hct MCH MCHC RDW Plt Count Lymph % (Auto) [place] # Seg Neutrophils % Seg Neuts % (Manual) Lymphocytes % (Manual) Nucleated RBC % Seg Neutrophils # Seg Neutrophils # Man Lymphocytes # (Manual) Monocytes # (Manual) INR D-Dimer POC ABG pH 7.246 L ABG pH POC ABG pCO2 65.2 H POC ABG pO2 69 L ABG pO2 ABG HCO3 ABG O2 Saturation ABG Base Excess ABG Hemoglobin Oxyhemoglobin Sodium Potassium Chloride Carbon Dioxide BUN Creatinine Glucose POC Glucose 159 H 152 H Lactic Acid Phosphorus Magnesium AST ALT Alkaline Phosphatase Ammonia Total Creatine Kinase CK-MB (CK-2) NT-Pro-B Natriuret Pep Total Protein Albumin Triglycerides Free T4 Urine Creatinine Urine Chloride Crossmatch 03/08/19 03/08/19 03/08/19 04:09 04:51 06:30 WBC 27.8 H RBC 3.35 L Hgb 7.9 L Hct 27.0 L MCH 24 L MCHC 29 L RDW 23.0 H Plt Count Lymph % (Auto) [place] # Seg Neutrophils % Seg Neuts % (Manual) 91.0 H Lymphocytes % (Manual) 4.0 L Nucleated RBC % 5.0 H Seg Neutrophils # Seg Neutrophils # Man 25.3 H Lymphocytes # (Manual) 1.1 L Monocytes # (Manual) 1.1 H INR D-Dimer POC ABG pH 7.155 L ABG pH POC ABG pCO2 POC ABG pO2 79 L ABG pO2 ABG HCO3 ABG O2 Saturation ABG Base Excess ABG Hemoglobin Oxyhemoglobin Sodium Potassium Chloride Carbon Dioxide BUN Creatinine Glucose POC Glucose 153 H Lactic Acid Phosphorus Magnesium AST ALT Alkaline Phosphatase Ammonia Total Creatine Kinase CK-MB (CK-2) NT-Pro-B Natriuret Pep Total Protein Albumin Triglycerides Free T4 Urine Creatinine Urine Chloride Crossmatch 03/08/19 03/08/19 03/08/19 06:30 09:29 12:13 WBC RBC Hgb Hct MCH MCHC RDW Plt Count Lymph % (Auto) [place] # Seg Neutrophils % Seg Neuts % (Manual) Lymphocytes % (Manual) Nucleated RBC % Seg Neutrophils # Seg Neutrophils # Man Lymphocytes # (Manual) Monocytes # (Manual) INR D-Dimer POC ABG pH 7.182 L ABG pH POC ABG pCO2 POC ABG pO2 77 L ABG pO2 ABG HCO3 ABG O2 Saturation ABG Base Excess ABG Hemoglobin Oxyhemoglobin Sodium Potassium 6.5 H* D Chloride Carbon Dioxide BUN 164 H Creatinine 3.3 H Glucose 141 H POC Glucose 133 H Lactic Acid Phosphorus Magnesium AST 543 H ALT 280 H Alkaline Phosphatase 641 H Ammonia Total Creatine Kinase CK-MB (CK-2) NT-Pro-B Natriuret Pep Total Protein 6.2 L Albumin 2.5 L Triglycerides Free T4 Urine Creatinine Urine Chloride Crossmatch 03/08/19 03/08/19 03/09/19 17:49 23:55 05:35 WBC RBC Hgb Hct MCH MCHC RDW Plt Count Lymph % (Auto) [place] # Seg Neutrophils % Seg Neuts % (Manual) Lymphocytes % (Manual) Nucleated RBC % Seg Neutrophils # Seg Neutrophils # Man Lymphocytes # (Manual) Monocytes # (Manual) INR D-Dimer POC ABG pH ABG pH POC ABG pCO2 POC ABG pO2 ABG pO2 ABG HCO3 ABG O2 Saturation ABG Base Excess ABG Hemoglobin Oxyhemoglobin Sodium Potassium Chloride Carbon Dioxide BUN Creatinine Glucose POC Glucose 159 H 136 H 134 H Lactic Acid Phosphorus Magnesium AST ALT Alkaline Phosphatase Ammonia Total Creatine Kinase CK-MB (CK-2) NT-Pro-B Natriuret Pep Total Protein Albumin Triglycerides Free T4 Urine Creatinine Urine Chloride Crossmatch 03/09/19 03/09/19 03/09/19 05:54 08:00 12:29 WBC RBC Hgb Hct MCH MCHC RDW Plt Count Lymph % (Auto) [place] # Seg Neutrophils % Seg Neuts % (Manual) Lymphocytes % (Manual) Nucleated RBC % Seg Neutrophils # Seg Neutrophils # Man Lymphocytes # (Manual) Monocytes # (Manual) INR D-Dimer POC ABG pH 7.160 L ABG pH POC ABG pCO2 POC ABG pO2 ABG pO2 ABG HCO3 ABG O2 Saturation ABG Base Excess ABG Hemoglobin Oxyhemoglobin Sodium Potassium 5.6 H Chloride 95.5 L Carbon Dioxide BUN 98 H Creatinine 2.7 H Glucose 143 H POC Glucose 144 H Lactic Acid Phosphorus Magnesium AST ALT Alkaline Phosphatase Ammonia Total Creatine Kinase CK-MB (CK-2) NT-Pro-B Natriuret Pep Total Protein Albumin Triglycerides Free T4 Urine Creatinine Urine Chloride Crossmatch 03/09/19 03/09/19 03/09/19 13:25 18:19 23:51 WBC RBC Hgb Hct MCH MCHC RDW Plt Count Lymph % (Auto) [place] # Seg Neutrophils % Seg Neuts % (Manual) Lymphocytes % (Manual) Nucleated RBC % Seg Neutrophils # Seg Neutrophils # Man Lymphocytes # (Manual) Monocytes # (Manual) INR D-Dimer POC ABG pH 7.184 L ABG pH POC ABG pCO2 POC ABG pO2 65 L ABG pO2 ABG HCO3 ABG O2 Saturation ABG Base Excess ABG Hemoglobin Oxyhemoglobin Sodium Potassium Chloride Carbon Dioxide BUN Creatinine Glucose POC Glucose 163 H 157 H Lactic Acid Phosphorus Magnesium AST ALT Alkaline Phosphatase Ammonia Total Creatine Kinase CK-MB (CK-2) NT-Pro-B Natriuret Pep Total Protein Albumin Triglycerides Free T4 Urine Creatinine Urine Chloride Crossmatch 03/10/19 03/10/19 03/10/19 03:55 05:48 11:47 WBC RBC Hgb Hct MCH MCHC RDW Plt Count Lymph % (Auto) [place] # Seg Neutrophils % Seg Neuts % (Manual) Lymphocytes % (Manual) Nucleated RBC % Seg Neutrophils # Seg Neutrophils # Man Lymphocytes # (Manual) Monocytes # (Manual) INR D-Dimer POC ABG pH 7.187 L ABG pH POC ABG pCO2 > 70 H POC ABG pO2 76 L ABG pO2 ABG HCO3 ABG O2 Saturation ABG Base Excess ABG Hemoglobin Oxyhemoglobin Sodium Potassium Chloride Carbon Dioxide BUN Creatinine Glucose POC Glucose 141 H 151 H Lactic Acid Phosphorus Magnesium AST ALT Alkaline Phosphatase Ammonia Total Creatine Kinase CK-MB (CK-2) NT-Pro-B Natriuret Pep Total Protein Albumin Triglycerides Free T4 Urine Creatinine Urine Chloride Crossmatch 03/10/19 03/10/19 03/10/19 18:19 21:28 23:45 WBC RBC Hgb Hct MCH MCHC RDW Plt Count Lymph % (Auto) [place] # Seg Neutrophils % Seg Neuts % (Manual) Lymphocytes % (Manual) Nucleated RBC % Seg Neutrophils # Seg Neutrophils # Man Lymphocytes # (Manual) Monocytes # (Manual) INR D-Dimer POC ABG pH 7.275 L ABG pH POC ABG pCO2 > 70 H POC ABG pO2 ABG pO2 ABG HCO3 ABG O2 Saturation ABG Base Excess ABG Hemoglobin Oxyhemoglobin Sodium Potassium Chloride Carbon Dioxide BUN Creatinine Glucose POC Glucose 161 H 141 H Lactic Acid Phosphorus Magnesium AST ALT Alkaline Phosphatase Ammonia Total Creatine Kinase CK-MB (CK-2) NT-Pro-B Natriuret Pep Total Protein Albumin Triglycerides Free T4 Urine Creatinine Urine Chloride Crossmatch 03/11/19 03/11/19 03/11/19 03:51 05:33 09:44 WBC RBC Hgb Hct MCH MCHC RDW Plt Count Lymph % (Auto) [place] # Seg Neutrophils % Seg Neuts % (Manual) Lymphocytes % (Manual) Nucleated RBC % Seg Neutrophils # Seg Neutrophils # Man Lymphocytes # (Manual) Monocytes # (Manual) INR D-Dimer POC ABG pH 7.252 L ABG pH POC ABG pCO2 > 70 H POC ABG pO2 71 L ABG pO2 ABG HCO3 ABG O2 Saturation ABG Base Excess ABG Hemoglobin Oxyhemoglobin Sodium Potassium Chloride 93.8 L Carbon Dioxide BUN 47 H Creatinine 2.4 H Glucose 136 H POC Glucose 205 H Lactic Acid Phosphorus Magnesium AST ALT Alkaline Phosphatase Ammonia Total Creatine Kinase CK-MB (CK-2) NT-Pro-B Natriuret Pep Total Protein Albumin Triglycerides Free T4 Urine Creatinine Urine Chloride Crossmatch 03/11/19 03/11/19 03/11/19 11:55 18:45 23:43 WBC RBC Hgb Hct MCH MCHC RDW Plt Count Lymph % (Auto) [place] # Seg Neutrophils % Seg Neuts % (Manual) Lymphocytes % (Manual) Nucleated RBC % Seg Neutrophils # Seg Neutrophils # Man Lymphocytes # (Manual) Monocytes # (Manual) INR D-Dimer POC ABG pH ABG pH POC ABG pCO2 POC ABG pO2 ABG pO2 ABG HCO3 ABG O2 Saturation ABG Base Excess ABG Hemoglobin Oxyhemoglobin Sodium Potassium Chloride Carbon Dioxide BUN Creatinine Glucose POC Glucose 144 H 135 H 128 H Lactic Acid Phosphorus Magnesium AST ALT Alkaline Phosphatase Ammonia Total Creatine Kinase CK-MB (CK-2) NT-Pro-B Natriuret Pep Total Protein Albumin Triglycerides Free T4 Urine Creatinine Urine Chloride Crossmatch 03/12/19 03/12/19 03/12/19 03:43 05:30 05:30 WBC 31.8 H RBC 3.36 L Hgb 8.0 L Hct 28.0 L MCH 24 L MCHC 29 L RDW 22.7 H Plt Count Lymph % (Auto) [place] # Seg Neutrophils % Seg Neuts % (Manual) 97.5 H Lymphocytes % (Manual) 1.5 L Nucleated RBC % 8.0 H Seg Neutrophils # Seg Neutrophils # Man 31.0 H Lymphocytes # (Manual) 0.5 L Monocytes # (Manual) INR D-Dimer POC ABG pH 7.157 L ABG pH POC ABG pCO2 > 70 H POC ABG pO2 79 L ABG pO2 ABG HCO3 ABG O2 Saturation ABG Base Excess ABG Hemoglobin Oxyhemoglobin Sodium Potassium Chloride 93.8 L Carbon Dioxide BUN 59 H Creatinine 2.9 H Glucose 131 H POC Glucose Lactic Acid Phosphorus Magnesium AST 515 H ALT 332 H Alkaline Phosphatase 994 H Ammonia Total Creatine Kinase CK-MB (CK-2) NT-Pro-B Natriuret Pep Total Protein 5.9 L Albumin 2.3 L Triglycerides Free T4 Urine Creatinine Urine Chloride Crossmatch 03/12/19 03/12/19 03/12/19 05:30 05:56 12:01 WBC RBC Hgb Hct MCH MCHC RDW Plt Count Lymph % (Auto) [place] # Seg Neutrophils % Seg Neuts % (Manual) Lymphocytes % (Manual) Nucleated RBC % Seg Neutrophils # Seg Neutrophils # Man Lymphocytes # (Manual) Monocytes # (Manual) INR D-Dimer POC ABG pH 7.119 L ABG pH POC ABG pCO2 POC ABG pO2 65 L ABG pO2 ABG HCO3 ABG O2 Saturation ABG Base Excess ABG Hemoglobin Oxyhemoglobin Sodium Potassium Chloride Carbon Dioxide BUN Creatinine Glucose POC Glucose 124 H Lactic Acid Phosphorus Magnesium AST ALT Alkaline Phosphatase Ammonia Total Creatine Kinase CK-MB (CK-2) NT-Pro-B Natriuret Pep Total Protein Albumin Triglycerides 366 H Free T4 Urine Creatinine Urine Chloride Crossmatch 03/12/19 12:03 WBC RBC Hgb Hct MCH MCHC RDW Plt Count Lymph % (Auto) [place] # Seg Neutrophils % Seg Neuts % (Manual) Lymphocytes % (Manual) Nucleated RBC % Seg Neutrophils # Seg Neutrophils # Man Lymphocytes # (Manual) Monocytes # (Manual) INR D-Dimer POC ABG pH ABG pH POC ABG pCO2 POC ABG pO2 ABG pO2 ABG HCO3 ABG O2 Saturation ABG Base Excess ABG Hemoglobin Oxyhemoglobin Sodium Potassium Chloride Carbon Dioxide BUN Creatinine Glucose POC Glucose 135 H Lactic Acid Phosphorus Magnesium AST ALT Alkaline Phosphatase Ammonia Total Creatine Kinase CK-MB (CK-2) NT-Pro-B Natriuret Pep Total Protein Albumin Triglycerides Free T4 Urine Creatinine Urine Chloride Crossmatch Allied health notes reviewed: RT
--- NOTE | 2019-03-12 20:16 | Progress Note ---
Assessment and Plan - Patient Problems (1) SELAM (acute kidney injury) Current Visit: Yes Status: Acute Plan to address problem: Acute tubular necrosis in the setting of hypotension/sepsis. Patient is dialysis requiring. Hemodynamic instability still precluding hemodialysis. Patient's prognosis is poor and family needs to consider switch to palliative care. No family around to discuss. (2) Acute respiratory failure Current Visit: Yes Status: Acute Qualifiers: Respiratory failure complication: hypoxia Qualified Code(s): J96.01 - Acute respiratory failure with hypoxia Plan to address problem: Continue ventilator management by pulmonary (3) Anasarca Current Visit: Yes Status: Acute Plan to address problem: Improved with Fluid removal with dialysis. Now worsening off of dialysis (4) Anemia Current Visit: Yes Status: Acute Qualifiers: Anemia type: unspecified type Qualified Code(s): D64.9 - Anemia, unspecified Plan to address problem: Give Erythropoetin on dialysis. (5) Hyperkalemia Current Visit: Yes Status: Acute Plan to address problem: Improved with dialysis. (6) Metastatic breast cancer Current Visit: Yes Status: Chronic Plan to address problem: Continue management by oncologist (7) Pneumonia Current Visit: Yes Status: Suspected Qualifiers: Pneumonia type: due to unspecified organism Laterality: bilateral Lung location: unspecified part of lung Qualified Code(s): J18.9 - Pneumonia, unspecified organism Plan to address problem: Continue antibiotics per infectious disease appropriately dosed to the degree of renal function Subjective Date of service: 03/12/19 Principal diagnosis: Ac. hypoxemic resp failure; Sev Sepsis; R. pleural effusion; Met. breast CA Interval history: Patient seen lying in bed. Intubated on ventilator. Fi O2/85% PEEP of 14. On Levophed. On Diprivan and fentanyl Objective - Exam Narrative Exam: Obese middle-aged -Prydeinig female lying in bed intubated on ventilator HEENT: NCAT, pink oral mucous membrane Neck: Supple, no venous distention CVS: S1S2 RRR with no murmur, rub or gallop Chest: Diminished breath sounds Abdomen: Obese soft, nontender, no organomegaly, bowel sounds are present Extremities: 2-3+ edema Neuro: Sedated on ventilator - Vital Signs Vital signs: Vital Signs - 12hr 03/12/19 03/12/19 03/12/19 08:15 08:30 08:45 Temperature Pulse Rate 118 H 120 H 120 H Pulse Rate [ From Monitor] Respiratory 34 H 35 H 35 H Rate Blood Pressure 100/54 91/51 77/46 O2 Sat by Pulse 89 91 93 Oximetry 03/12/19 03/12/19 03/12/19 09:00 09:09 09:15 Temperature Pulse Rate 111 H 122 H 121 H Pulse Rate [ From Monitor] Respiratory 35 H 35 H Rate Blood Pressure 81/52 138/73 86/46 O2 Sat by Pulse 88 93 93 Oximetry 03/12/19 03/12/19 03/12/19 09:30 09:45 10:00 Temperature Pulse Rate 121 H 120 H 121 H Pulse Rate [ From Monitor] Respiratory 36 H 34 H 35 H Rate Blood Pressure 85/46 95/52 98/50 O2 Sat by Pulse 93 92 Oximetry 03/12/19 03/12/19 03/12/19 10:15 10:30 10:45 Temperature Pulse Rate 121 H 121 H 121 H Pulse Rate [ From Monitor] Respiratory 35 H 35 H 35 H Rate Blood Pressure 103/53 104/52 110/54 O2 Sat by Pulse 90 88 Oximetry 03/12/19 03/12/19 03/12/19 11:00 11:15 11:30 Temperature Pulse Rate 121 H 121 H 118 H Pulse Rate [ From Monitor] Respiratory 35 H 35 H 35 H Rate Blood Pressure 102/50 107/52 119/58 O2 Sat by Pulse 89 85 Oximetry 03/12/19 03/12/19 03/12/19 11:45 11:53 12:00 Temperature 97.5 F L Pulse Rate 116 H 123 H 122 H Pulse Rate [ 121 H From Monitor] Respiratory 37 H 35 H Rate Blood Pressure 104/54 104/54 98/55 O2 Sat by Pulse 86 84 97 Oximetry 03/12/19 03/12/19 03/12/19 12:15 12:30 12:45 Temperature Pulse Rate 122 H 120 H 121 H Pulse Rate [ From Monitor] Respiratory 34 H 35 H 35 H Rate Blood Pressure 97/52 83/48 94/55 O2 Sat by Pulse 95 93 92 Oximetry 03/12/19 03/12/19 03/12/19 13:00 13:15 13:30 Temperature Pulse Rate 120 H 121 H 120 H Pulse Rate [ From Monitor] Respiratory 35 H 35 H 35 H Rate Blood Pressure 99/63 118/62 124/65 O2 Sat by Pulse 95 98 87 Oximetry 03/12/19 03/12/19 03/12/19 13:45 14:00 14:09 Temperature Pulse Rate 120 H 120 H 120 H Pulse Rate [ From Monitor] Respiratory 36 H 35 H Rate Blood Pressure 126/65 123/64 123/64 O2 Sat by Pulse 94 86 99 Oximetry 03/12/19 03/12/19 03/12/19 14:15 14:30 14:45 Temperature Pulse Rate 119 H 119 H 117 H Pulse Rate [ From Monitor] Respiratory 35 H 34 H 35 H Rate Blood Pressure 127/69 113/60 108/55 O2 Sat by Pulse 99 98 98 Oximetry 03/12/19 03/12/19 03/12/19 15:00 15:15 15:30 Temperature Pulse Rate 117 H 116 H 116 H Pulse Rate [ From Monitor] Respiratory 35 H 35 H 35 H Rate Blood Pressure 118/59 109/58 117/57 O2 Sat by Pulse 98 98 99 Oximetry 03/12/19 03/12/19 03/12/19 15:45 16:00 16:15 Temperature 98.9 F Pulse Rate 115 H 113 H 114 H Pulse Rate [ 112 H From Monitor] Respiratory 36 H 35 H 35 H Rate Blood Pressure 118/62 117/60 123/60 O2 Sat by Pulse 99 99 99 Oximetry 03/12/19 03/12/19 03/12/19 16:30 16:45 17:00 Temperature Pulse Rate 114 H 113 H 114 H Pulse Rate [ From Monitor] Respiratory 35 H 35 H 35 H Rate Blood Pressure 115/64 108/55 112/57 O2 Sat by Pulse 99 99 99 Oximetry 03/12/19 03/12/19 03/12/19 17:05 17:15 17:30 Temperature Pulse Rate 108 H 108 H 110 H Pulse Rate [ From Monitor] Respiratory 35 H 35 H Rate Blood Pressure 112/57 85/45 108/55 O2 Sat by Pulse 97 96 97 Oximetry 03/12/19 03/12/19 03/12/19 17:45 18:00 18:15 Temperature Pulse Rate 114 H 112 H 113 H Pulse Rate [ From Monitor] Respiratory 35 H 35 H 34 H Rate Blood Pressure 112/54 119/56 107/53 O2 Sat by Pulse 96 95 Oximetry - Lab 03/12/19 05:30 03/12/19 05:30 Most recent lab results ABG pH 7.335 pH Units (7.350-7.450) L 03/03/19 05:25 ABG pCO2 61.3 mm Hg 03/03/19 05:25 ABG pO2 89.2 mm Hg (80.0-90.0) 03/03/19 05:25 ABG HCO3 32.0 mmol/L (20.0-26.0) H 03/03/19 05:25 ABG O2 Saturation 97.0 % (95.0-99.0) 03/03/19 05:25 Calcium 9.1 mg/dL (8.4-10.2) 03/12/19 05:30 Phosphorus 3.30 mg/dL (2.5-4.5) D 03/03/19 05:00 Magnesium 2.90 mg/dL (1.7-2.3) H 03/03/19 05:00 Urine Creatinine 185.9 mg/dL (0.1-20.0) H 03/04/19 12:39 Urine Sodium 13 mmol/L 03/04/19 12:39 Medications & Allergies - Medications Allergies/Adverse Reactions: Allergies aspirin Adverse Reaction (Verified 01/28/19 12:25) GI Upset Home Medications: Home Medications Medication Instructions Recorded Confirmed Last Taken Type amLODIPine 5 mg PO DAILY 01/27/19 02/27/19 02/15/19 10:00 History Albuterol Sulfate [Proventil Hfa] 6.7 gm IH Q6H PRN #1 can 02/11/19 02/27/19 02/15/19 15:00 Rx Clindamycin [Clindamycin CAP] 300 mg PO Q8H #21 cap 02/11/19 02/27/19 02/15/19 10:00 Rx oxyCODONE [roxiCODONE] 10 mg PO Q6HR PRN 02/15/19 02/27/19 Unknown History Budesonide/Formoterol Fumarate 2 puff IH BID #1 hfa.aer.ad 02/19/19 02/27/19 Unknown Rx [Symbicort 160-4.5 Mcg Inhaler] HYDROcodone/APAP 10-325 [[place] 1 each PO Q6HR PRN #30 tablet 02/19/19 02/27/19 Unknown Rx 10/325] cephALEXin [Keflex] 500 mg PO Q6HR #40 capsule 02/19/19 02/27/19 Unknown Rx Active Medications: Generic Name Dose Route Start Last Admin Trade Name Freq PRN Reason Stop Dose Admin Acetaminophen 650 mg 03/02/19 13:46 03/02/19 15:38 Tylenol PO 650 mg Q6H PRN Administration Fever >101 Albuterol 2.5 mg 02/27/19 21:08 02/28/19 12:35 Proventil IH 2.5 mg Q4HRT PRN Administration Shortness Of Breath Albuterol/Ipratropium 1 ampul 02/28/19 08:00 03/12/19 20:02 Duoneb *Not For Prn Use* IH 1 ampul TIDRT MANISH Administration Lipase/Protease/Amylase 1 each 03/03/19 08:54 Pancreaze 10,500 Unit FEEDTUBE PRN PRN For Clogged Feeding Tube Enoxaparin Sodium 30 mg 03/04/19 10:00 03/12/19 09:34 Enoxaparin SUB-Q 30 mg QDAY MANISH Administration Famotidine 20 mg 03/10/19 10:00 03/12/19 09:34 Pepcid IV 20 mg QDAY MANISH Administration Hydrophilic Ointment 1 applic 03/02/19 04:40 Vaseline Lip Therapy TP Q2HR PRN Dry Lips Norepinephrine 4 mg in 250 mls @ 7.5 mls/hr 03/02/19 05:00 03/12/19 18:34 Levophed Drip 4 Mg/Ns 250 Ml IV 18 mcg/min TITR MANISH 67.5 mls/hr Titration Protocol 2 MCG/MIN Vasopressin 20 unit/ Sodium 101 mls @ 9.09 mls/hr 03/02/19 05:00 03/12/19 12:47 Chloride IV 0.03 units/min TITR MANISH 9.09 mls/hr Administration Protocol 0.03 UNITS/MIN Fentanyl Citrate 2,000 mcg in 100 mls @ 4.64 mls/hr 03/02/19 17:00 03/12/19 19:13 Fentanyl Drip Premix IV 4 mcg/kg/hr TITR MANISH 18.56 mls/hr Administration Protocol 1 MCG/KG/HR Propofol 1,000 mg in 100 mls @ 2.844 mls/hr 03/06/19 13:00 03/12/19 12:32 Diprivan 10 Mg/Ml IV 20 mcg/kg/min TITR MANISH 11.376 mls/hr Administration Protocol 5 MCG/KG/MIN Sodium Chloride 100 mls @ 999 mls/hr 03/09/19 07:55 Nacl 0.9% IV [id number] PRN Hypotension Insulin Human Lispro 0 unit 03/04/19 13:00 03/12/19 18:11 Humalog SUB-Q 3 unit Q6HR MANISH Administration Protocol Lactulose 20 gm 03/02/19 10:00 03/12/19 09:34 Cephulac PO 20 gm Q12HR MANISH Administration Methylprednisolone Sodium Succinate 40 mg 03/11/19 22:00 03/12/19 09:34 Solu-Medrol IV 40 mg Q12HR MANISH Administration Metoclopramide HCl 10 mg 03/10/19 16:00 03/12/19 16:38 Reglan IV 10 mg Q8H MANISH Administration Multi-Ingred Cream/Lotion/Oil/Oint 1 applic 03/02/19 16:43 Artificial Tears Ophth Oint OU Q4HR PRN Dry Eye(s) Simple Syrup 15 ml 03/03/19 08:54 Simple Syrup FEEDTUBE PRN PRN Hypoglycemia Simple Syrup 30 ml 03/03/19 08:54 Simple Syrup FEEDTUBE PRN PRN Hypoglycemia Sodium Bicarbonate 325 mg 03/03/19 08:54 Sodium Bicarbonate FEEDTUBE PRN PRN For Clogged Feeding Tube
--- NOTE | 2019-03-12 23:58 | Progress Note ---
Assessment and Plan - Acute respiratory failure with hypoxia. Intubated and on MVS 03/01/19 Pulmonary following AC and PC with FIO2 of 80 percent - Sepsis with shock. Continue per ID recommendation. Continue IV Meropenem, - Acute kidney injury. Etiology likely secondary to prerenal injury/ATN from sepsis/ARDS. Nephrology reports that patient would not be an ideal candidate for renal replacement initiation considering her other underlying comorbidities, especially metastatic breast cancer - Hyperkalemia. Etiology secondary to above. Patient received D50, IV insulin, bicarb IVP, IV lasix 80mg once. Also, nephrology initiated bicarb gtt at 50ml/hr. if hyperkalemia is refractory to medical treatment will need to discuss renal replacement therapy with family, however pt with overall poor prognosis and would not be an ideal candidate for correction HD. - Bilateral pneumonia Throacentesis culture 02/28/19 - no growth, no orgs on gram stain. 03/02/2019 sputum: gianfranco albicans ID following - Recurrent malignant pleural effusion s/p thoracentesis - Left breast cancer with mets to the bones and liver s/p surgery Dr. Self following Local Wound care. -Heart failure Echocardiogram revealed left ventricular size normal with no pericardial effusion Shock liver -Elevated LFTs and alkaline phosphatase. Right upper quadrant ultrasound pending - Hyperammonemia Cont lactulose as needed - Hypernatrmia Free water via Dobbhoff - Hypertension Monitor BP - ELevated D- dimer CT angio was negative for PE - Poor prognosis. Needs Hospice The high probability of a clinically significant, sudden or life threatening deterioration of the [respiratory neurological] system(s) required my full and direct attention, intervention and personal management. The aggregate critical care time was [31] minutes. This time is in addition to time spent performing reported procedures but includes the following: [x] Data Review and interpretation [x] Patient assessment and monitoring of vital signs [x] Documentation [x] Medication orders and management Subjective Date of service: 03/12/19 Principal diagnosis: Ac. hypoxemic resp failure; Sev Sepsis; R. pleural effusio n; Met. breast CA Interval history: Ac. hypoxemic resp failure; Sev Sepsis; R. pleural effusion; Met. breast CA Patient seen lying in bed. Intubated on ventilator. AC/PC Rate 35/80% FIO2 PEEP of 14. Off of Levophed. On fentanyl Objective - Constitutional Vitals: Vital Signs - 12hr 11/20/19 11/20/19 11/20/19 12:00 12:15 12:30 Temperature 97.5 F L Pulse Rate 122 H 122 H 120 H Pulse Rate [ Anterior Throughout] Pulse Rate [ 121 H From Monitor] Respiratory 35 H 34 H 35 H Rate Respiratory Rate [Anterior Throughout] Blood Pressure 98/55 97/52 83/48 O2 Sat by Pulse 97 95 93 Oximetry 03/12/19 03/12/19 03/12/19 12:45 13:00 13:15 Temperature Pulse Rate 121 H 120 H 121 H Pulse Rate [ Anterior Throughout] Pulse Rate [ From Monitor] Respiratory 35 H 35 H 35 H Rate Respiratory Rate [Anterior Throughout] Blood Pressure 94/55 99/63 118/62 O2 Sat by Pulse 92 95 98 Oximetry 03/12/19 03/12/19 03/12/19 13:30 13:45 14:00 Temperature Pulse Rate 120 H 120 H 120 H Pulse Rate [ Anterior Throughout] Pulse Rate [ From Monitor] Respiratory 35 H 36 H 35 H Rate Respiratory Rate [Anterior Throughout] Blood Pressure 124/65 126/65 123/64 O2 Sat by Pulse 87 94 86 Oximetry 03/12/19 03/12/19 03/12/19 14:09 14:15 14:30 Temperature Pulse Rate 120 H 119 H 119 H Pulse Rate [ Anterior Throughout] Pulse Rate [ From Monitor] Respiratory 35 H 34 H Rate Respiratory Rate [Anterior Throughout] Blood Pressure 123/64 127/69 113/60 O2 Sat by Pulse 99 99 98 Oximetry 03/12/19 03/12/19 03/12/19 14:45 15:00 15:15 Temperature Pulse Rate 117 H 117 H 116 H Pulse Rate [ Anterior Throughout] Pulse Rate [ From Monitor] Respiratory 35 H 35 H 35 H Rate Respiratory Rate [Anterior Throughout] Blood Pressure 108/55 118/59 109/58 O2 Sat by Pulse 98 98 98 Oximetry 03/12/19 03/12/19 03/12/19 15:30 15:45 16:00 Temperature 98.9 F Pulse Rate 116 H 115 H 113 H Pulse Rate [ Anterior Throughout] Pulse Rate [ 112 H From Monitor] Respiratory 35 H 36 H 35 H Rate Respiratory Rate [Anterior Throughout] Blood Pressure 117/57 118/62 117/60 O2 Sat by Pulse 99 99 99 Oximetry 03/12/19 03/12/19 03/12/19 16:15 16:30 16:45 Temperature Pulse Rate 114 H 114 H 113 H Pulse Rate [ Anterior Throughout] Pulse Rate [ From Monitor] Respiratory 35 H 35 H 35 H Rate Respiratory Rate [Anterior Throughout] Blood Pressure 123/60 115/64 108/55 O2 Sat by Pulse 99 99 99 Oximetry 03/12/19 03/12/19 03/12/19 17:00 17:05 17:15 Temperature Pulse Rate 114 H 108 H 108 H Pulse Rate [ Anterior Throughout] Pulse Rate [ From Monitor] Respiratory 35 H 35 H Rate Respiratory Rate [Anterior Throughout] Blood Pressure 112/57 112/57 85/45 O2 Sat by Pulse 99 97 96 Oximetry 03/12/19 03/12/19 03/12/19 17:30 17:45 18:00 Temperature Pulse Rate 110 H 114 H 112 H Pulse Rate [ Anterior Throughout] Pulse Rate [ From Monitor] Respiratory 35 H 35 H 35 H Rate Respiratory Rate [Anterior Throughout] Blood Pressure 108/55 112/54 119/56 O2 Sat by Pulse 97 96 Oximetry 03/12/19 03/12/19 03/12/19 18:15 18:30 18:45 Temperature Pulse Rate 113 H 113 H 112 H Pulse Rate [ Anterior Throughout] Pulse Rate [ From Monitor] Respiratory 34 H 36 H 34 H Rate Respiratory Rate [Anterior Throughout] Blood Pressure 107/53 112/56 108/54 O2 Sat by Pulse 95 95 95 Oximetry 03/12/19 03/12/19 03/12/19 19:00 19:15 19:30 Temperature Pulse Rate 112 H 112 H 112 H Pulse Rate [ Anterior Throughout] Pulse Rate [ From Monitor] Respiratory 35 H 39 H 34 H Rate Respiratory Rate [Anterior Throughout] Blood Pressure 113/52 108/54 103/53 O2 Sat by Pulse 95 94 91 Oximetry 03/12/19 03/12/19 03/12/19 19:45 20:00 20:02 Temperature 99.1 F Pulse Rate 112 H 113 H 109 H Pulse Rate [ Anterior Throughout] Pulse Rate [ From Monitor] Respiratory 35 H 35 H Rate Respiratory Rate [Anterior Throughout] Blood Pressure 110/54 104/53 104/53 O2 Sat by Pulse 96 99 Oximetry 03/12/19 03/12/19 03/12/19 20:15 20:30 20:35 Temperature Pulse Rate 114 H 113 H Pulse Rate [ 111 H Anterior Throughout] Pulse Rate [ From Monitor] Respiratory 35 H 35 H Rate Respiratory 37 H Rate [Anterior Throughout] Blood Pressure 103/47 100/45 O2 Sat by Pulse 100 99 Oximetry 03/12/19 03/12/19 03/12/19 20:45 21:00 21:15 Temperature Pulse Rate 113 H 114 H 112 H Pulse Rate [ Anterior Throughout] Pulse Rate [ From Monitor] Respiratory 36 H 35 H 36 H Rate Respiratory Rate [Anterior Throughout] Blood Pressure 113/53 98/48 109/54 O2 Sat by Pulse 98 97 Oximetry 03/12/19 03/12/19 03/12/19 21:30 21:45 22:00 Temperature Pulse Rate 113 H 113 H 112 H Pulse Rate [ Anterior Throughout] Pulse Rate [ From Monitor] Respiratory 35 H 35 H 35 H Rate Respiratory Rate [Anterior Throughout] Blood Pressure 112/51 113/48 116/54 O2 Sat by Pulse 97 96 Oximetry 03/12/19 03/12/19 03/12/19 22:15 22:30 22:46 Temperature Pulse Rate 114 H 112 H 107 H Pulse Rate [ Anterior Throughout] Pulse Rate [ From Monitor] Respiratory 35 H 36 H 22 Rate Respiratory Rate [Anterior Throughout] Blood Pressure 123/56 128/54 126/59 O2 Sat by Pulse 93 93 92 Oximetry 03/12/19 23:00 Temperature Pulse Rate 97 H Pulse Rate [ Anterior Throughout] Pulse Rate [ From Monitor] Respiratory 38 H Rate Respiratory Rate [Anterior Throughout] Blood Pressure 129/61 O2 Sat by Pulse 91 Oximetry General appearance: Present: no acute distress, well-nourished - EENT Eyes: PERRL, EOM intact ENT: hearing intact, clear oral mucosa Ears: bilateral: normal - Neck Neck: supple, normal ROM - Respiratory Respiratory effort: normal Respiratory: bilateral: CTA - Breasts Breasts: normal - Cardiovascular Rhythm: regular Heart Sounds: Present: S1 & S2. Absent: gallop, rub Extremities: pulses intact, No edema, normal color, Full ROM - Gastrointestinal General gastrointestinal: Present: soft, non-tender, non-distended, normal bowel sounds - Genitourinary Female genitourinary: normal - Integumentary Integumentary: clear, warm, dry - Musculoskeletal Musculoskeletal: 1, strength equal bilaterally - Neurologic Neurologic: moves all extremities - Psychiatric Psychiatric: memory intact, appropriate mood/affect, intact judgment & insight - Labs CBC & Chem 7: 03/12/19 05:30 03/14/19 Unknown Labs: Abnormal lab results 03/10/19 03/11/19 03/12/19 Range/Units 21:28 03:51 03:43 WBC (4.5-11.0) K/mm3 RBC (3.65-5.03) M/mm3 Hgb (10.1-14.3) gm/dl Hct (30.3-42.9) % MCH (28-32) pg MCHC (30-34) % RDW (13.2-15.2) % Seg Neuts % (Manual) (40.0-70.0) % Lymphocytes % (Manual) (13.4-35.0) % Nucleated RBC % (0.0-0.9) % Seg Neutrophils # Man (1.8-7.7) K/mm3 Lymphocytes # (Manual) (1.2-5.4) K/mm3 POC ABG pH 7.157 L (7.35-7.45) POC ABG pCO2 > 70 H > 70 H > 70 H (35-45) POC ABG pO2 79 L (80-105) Chloride (98-107) mmol/L BUN (7-17) mg/dL Creatinine (0.7-1.2) mg/dL Glucose (65-100) mg/dL POC Glucose (70-105) AST (5-40) units/L ALT (7-56) units/L Alkaline Phosphatase (35-129) units/L Total Protein (6.3-8.2) g/dL Albumin (3.9-5) g/dL Triglycerides (2-149) mg/dL 03/12/19 03/12/19 03/12/19 Range/Units 05:30 05:30 05:30 WBC 31.8 H (4.5-11.0) K/mm3 RBC 3.36 L (3.65-5.03) M/mm3 Hgb 8.0 L (10.1-14.3) gm/dl Hct 28.0 L (30.3-42.9) % MCH 24 L (28-32) pg MCHC 29 L (30-34) % RDW 22.7 H (13.2-15.2) % Seg Neuts % (Manual) 97.5 H (40.0-70.0) % Lymphocytes % (Manual) 1.5 L (13.4-35.0) % Nucleated RBC % 8.0 H (0.0-0.9) % Seg Neutrophils # Man 31.0 H (1.8-7.7) K/mm3 Lymphocytes # (Manual) 0.5 L (1.2-5.4) K/mm3 POC ABG pH (7.35-7.45) POC ABG pCO2 (35-45) POC ABG pO2 (80-105) Chloride 93.8 L (98-107) mmol/L BUN 59 H (7-17) mg/dL Creatinine 2.9 H (0.7-1.2) mg/dL Glucose 131 H (65-100) mg/dL POC Glucose (70-105) AST 515 H (5-40) units/L ALT 332 H (7-56) units/L Alkaline Phosphatase 994 H (35-129) units/L Total Protein 5.9 L (6.3-8.2) g/dL Albumin 2.3 L (3.9-5) g/dL Triglycerides 366 H (2-149) mg/dL 03/12/19 03/12/19 03/12/19 Range/Units 05:56 12:01 12:03 WBC (4.5-11.0) K/mm3 RBC (3.65-5.03) M/mm3 Hgb (10.1-14.3) gm/dl Hct (30.3-42.9) % MCH (28-32) pg MCHC (30-34) % RDW (13.2-15.2) % Seg Neuts % (Manual) (40.0-70.0) % Lymphocytes % (Manual) (13.4-35.0) % Nucleated RBC % (0.0-0.9) % Seg Neutrophils # Man (1.8-7.7) K/mm3 Lymphocytes # (Manual) (1.2-5.4) K/mm3 POC ABG pH 7.119 L (7.35-7.45) POC ABG pCO2 (35-45) POC ABG pO2 65 L (80-105) Chloride (98-107) mmol/L BUN (7-17) mg/dL Creatinine (0.7-1.2) mg/dL Glucose (65-100) mg/dL POC Glucose 124 H 135 H (70-105) AST (5-40) units/L ALT (7-56) units/L Alkaline Phosphatase (35-129) units/L Total Protein (6.3-8.2) g/dL Albumin (3.9-5) g/dL Triglycerides (2-149) mg/dL 03/12/19 03/12/19 Range/Units 17:52 23:41 WBC (4.5-11.0) K/mm3 RBC (3.65-5.03) M/mm3 Hgb (10.1-14.3) gm/dl Hct (30.3-42.9) % MCH (28-32) pg MCHC (30-34) % RDW (13.2-15.2) % Seg Neuts % (Manual) (40.0-70.0) % Lymphocytes % (Manual) (13.4-35.0) % Nucleated RBC % (0.0-0.9) % Seg Neutrophils # Man (1.8-7.7) K/mm3 Lymphocytes # (Manual) (1.2-5.4) K/mm3 POC ABG pH (7.35-7.45) POC ABG pCO2 (35-45) POC ABG pO2 (80-105) Chloride (98-107) mmol/L BUN (7-17) mg/dL Creatinine (0.7-1.2) mg/dL Glucose (65-100) mg/dL POC Glucose 171 H 143 H (70-105) AST (5-40) units/L ALT (7-56) units/L Alkaline Phosphatase (35-129) units/L Total Protein (6.3-8.2) g/dL Albumin (3.9-5) g/dL Triglycerides (2-149) mg/dL
[2019-03-13] MEDS: INSULIN LISPRO 100 UNIT/ML SUB-Q SCH ×4 (00:11→18:38)
[2019-03-13] MEDS: METOCLOPRAMIDE 10 MG/2 ML INJ IV SCH ×2 (00:14→08:43)
[2019-03-13] MEDS: NORepinephrine/NS 4 MG-250 ML 4 MG/250 ML BAG IV SCH ×4 (02:00→18:48)
[2019-03-13] MEDS: IPRATROPIUM/ALBUTEROL SULFATE 3 ML AMPUL.NEB IH SCH ×3 (08:12→20:19)
[2019-03-13] MEDS: VASOPRESSIN 20 UNIT in SODIUM CHLORIDE 0.9% 100 ML IV SCH ×2 (08:36→20:19)
[2019-03-13] MEDS: fentaNYL DRIP Premix 2,000 MCG/100 ML BAG IV SCH ×2 (08:49→18:39)
--- NOTE | 2019-03-13 08:59 | Progress Note ---
Assessment and Plan - Acute respiratory failure with hypoxia. Intubated and on MVS 03/01/19 Pulmonary following AC and PC with FIO2 of 80 percent - Sepsis with shock. Continue per ID recommendation. Continue IV Meropenem, - Acute kidney injury. Etiology likely secondary to prerenal injury/ATN from sepsis/ARDS. Nephrology reports that patient would not be an ideal candidate for renal replacement initiation considering her other underlying comorbidities, especially metastatic breast cancer - Hyperkalemia. Etiology secondary to above. Patient received D50, IV insulin, bicarb IVP, IV lasix 80mg once. Also, nephrology initiated bicarb gtt at 50ml/hr. if hyperkalemia is refractory to medical treatment will need to discuss renal replacement therapy with family, however pt with overall poor prognosis and would not be an ideal candidate for halfway HD. - Bilateral pneumonia Throacentesis culture 02/28/19 - no growth, no orgs on gram stain. 03/02/2019 sputum: gianfranco albicans ID following - Recurrent malignant pleural effusion s/p thoracentesis - Left breast cancer with mets to the bones and liver s/p surgery Dr. Self following Local Wound care. -Heart failure Echocardiogram revealed left ventricular size normal with no pericardial effusion Shock liver -Elevated LFTs and alkaline phosphatase. Right upper quadrant ultrasound pending - Hyperammonemia Cont lactulose as needed - Hypernatrmia Free water via Dobbhoff - Hypertension Monitor BP - ELevated D- dimer CT angio was negative for PE - Poor prognosis. Needs Hospice The high probability of a clinically significant, sudden or life threatening deterioration of the [respiratory neurological] system(s) required my full and direct attention, intervention and personal management. The aggregate critical care time was [31] minutes. This time is in addition to time spent performing reported procedures but includes the following: [x] Data Review and interpretation [x] Patient assessment and monitoring of vital signs [x] Documentation [x] Medication orders and management Subjective Date of service: 03/13/19 Principal diagnosis: Ac. hypoxemic resp failure; Sev Sepsis; R. pleural effusio n; Met. breast CA Interval history: Ac. hypoxemic resp failure; Sev Sepsis; R. pleural effusion; Met. breast CA Patient seen lying in bed. Intubated on ventilator. AC/PC Rate 35/80% FIO2 PEEP of 14. Off of Levophed. On fentanyl Objective - Constitutional Vitals: Vital Signs - 12hr 11/20/19 11/20/19 11/20/19 21:00 21:15 21:30 Temperature Pulse Rate 114 H 112 H 113 H Pulse Rate [ Anterior Throughout] Respiratory 35 H 36 H 35 H Rate Respiratory Rate [Anterior Throughout] Blood Pressure 98/48 109/54 112/51 O2 Sat by Pulse 97 97 Oximetry 03/12/19 03/12/19 03/12/19 21:45 22:00 22:15 Temperature Pulse Rate 113 H 112 H 114 H Pulse Rate [ Anterior Throughout] Respiratory 35 H 35 H 35 H Rate Respiratory Rate [Anterior Throughout] Blood Pressure 113/48 116/54 123/56 O2 Sat by Pulse 96 93 Oximetry 03/12/19 03/12/19 03/12/19 22:30 22:46 23:00 Temperature Pulse Rate 112 H 107 H 97 H Pulse Rate [ Anterior Throughout] Respiratory 36 H 22 38 H Rate Respiratory Rate [Anterior Throughout] Blood Pressure 128/54 126/59 129/61 O2 Sat by Pulse 93 92 91 Oximetry 03/12/19 03/12/19 03/12/19 23:06 23:15 23:30 Temperature Pulse Rate 105 H 109 H 102 H Pulse Rate [ Anterior Throughout] Respiratory 37 H 37 H 24 Rate Respiratory Rate [Anterior Throughout] Blood Pressure 129/61 136/65 138/64 O2 Sat by Pulse 92 92 93 Oximetry 03/12/19 03/13/19 03/13/19 23:45 00:00 00:15 Temperature 99.6 F Pulse Rate 104 H 103 H 109 H Pulse Rate [ Anterior Throughout] Respiratory 35 H 36 H 37 H Rate Respiratory Rate [Anterior Throughout] Blood Pressure 131/70 143/62 140/68 O2 Sat by Pulse 91 91 91 Oximetry 03/13/19 03/13/19 03/13/19 00:30 00:34 00:45 Temperature Pulse Rate 105 H 114 H 107 H Pulse Rate [ Anterior Throughout] Respiratory 38 H 34 H Rate Respiratory Rate [Anterior Throughout] Blood Pressure 138/74 138/74 123/66 O2 Sat by Pulse 86 93 Oximetry 03/13/19 03/13/19 03/13/19 01:00 01:15 01:30 Temperature Pulse Rate 107 H 111 H 103 H Pulse Rate [ Anterior Throughout] Respiratory 39 H 38 H 33 H Rate Respiratory Rate [Anterior Throughout] Blood Pressure 112/70 122/61 128/63 O2 Sat by Pulse 93 93 93 Oximetry 03/13/19 03/13/19 03/13/19 01:45 02:00 02:15 Temperature Pulse Rate 101 H 111 H 104 H Pulse Rate [ Anterior Throughout] Respiratory 13 12 32 H Rate Respiratory Rate [Anterior Throughout] Blood Pressure 115/56 104/57 117/63 O2 Sat by Pulse 95 96 96 Oximetry 03/13/19 03/13/19 03/13/19 02:30 02:45 03:00 Temperature Pulse Rate 96 H 105 H 107 H Pulse Rate [ Anterior Throughout] Respiratory 35 H 36 H 25 H Rate Respiratory Rate [Anterior Throughout] Blood Pressure 118/47 117/56 113/62 O2 Sat by Pulse 96 96 Oximetry 03/13/19 03/13/19 03/13/19 03:15 03:30 03:45 Temperature Pulse Rate 107 H 103 H 103 H Pulse Rate [ Anterior Throughout] Respiratory 33 H 22 21 Rate Respiratory Rate [Anterior Throughout] Blood Pressure 120/49 103/57 127/56 O2 Sat by Pulse 98 95 95 Oximetry 03/13/19 03/13/19 03/13/19 03:52 04:00 04:15 Temperature 99.0 F Pulse Rate 102 H 107 H Pulse Rate [ Anterior Throughout] Respiratory 27 H 16 Rate Respiratory Rate [Anterior Throughout] Blood Pressure 120/62 124/57 O2 Sat by Pulse 96 96 Oximetry 03/13/19 03/13/19 03/13/19 04:30 04:43 04:45 Temperature Pulse Rate 104 H 86 91 H Pulse Rate [ Anterior Throughout] Respiratory 18 15 Rate Respiratory Rate [Anterior Throughout] Blood Pressure 118/52 118/52 119/57 O2 Sat by Pulse 96 94 90 Oximetry 03/13/19 03/13/19 03/13/19 05:00 05:15 05:30 Temperature Pulse Rate 113 H 101 H 104 H Pulse Rate [ Anterior Throughout] Respiratory 13 12 13 Rate Respiratory Rate [Anterior Throughout] Blood Pressure 108/50 101/45 99/41 O2 Sat by Pulse 97 97 97 Oximetry 03/13/19 03/13/19 03/13/19 05:45 06:00 06:15 Temperature Pulse Rate 106 H 105 H 107 H Pulse Rate [ Anterior Throughout] Respiratory 36 H 25 H 30 H Rate Respiratory Rate [Anterior Throughout] Blood Pressure 106/48 106/40 97/43 O2 Sat by Pulse 97 95 96 Oximetry 03/13/19 03/13/19 03/13/19 06:30 08:00 08:12 Temperature 99.4 F Pulse Rate 104 H 100 H Pulse Rate [ 106 H Anterior Throughout] Respiratory 37 H Rate Respiratory 35 H Rate [Anterior Throughout] Blood Pressure 102/39 95/35 O2 Sat by Pulse 97 93 Oximetry General appearance: Present: no acute distress, well-nourished - EENT Eyes: PERRL, EOM intact ENT: hearing intact, clear oral mucosa Ears: bilateral: normal - Neck Neck: supple, normal ROM - Respiratory Respiratory effort: normal Respiratory: bilateral: CTA - Breasts Breasts: normal - Cardiovascular Rhythm: regular Heart Sounds: Present: S1 & S2. Absent: gallop, rub Extremities: pulses intact, No edema, normal color, Full ROM - Gastrointestinal General gastrointestinal: Present: soft, non-tender, non-distended, normal bowel sounds - Genitourinary Female genitourinary: normal - Integumentary Integumentary: clear, warm, dry - Musculoskeletal Musculoskeletal: 1, strength equal bilaterally - Neurologic Neurologic: moves all extremities - Psychiatric Psychiatric: memory intact, appropriate mood/affect, intact judgment & insight - Labs CBC & Chem 7: 03/12/19 05:30 03/14/19 Unknown Labs: Abnormal lab results 03/10/19 03/11/19 03/12/19 Range/Units 21:28 03:51 03:43 POC ABG pH (7.35-7.45) POC ABG pCO2 > 70 H > 70 H > 70 H (35-45) POC ABG pO2 (80-105) POC Glucose (70-105) Triglycerides (2-149) mg/dL 03/12/19 03/12/19 03/12/19 Range/Units 12:01 12:03 17:52 POC ABG pH 7.119 L (7.35-7.45) POC ABG pCO2 (35-45) POC ABG pO2 65 L (80-105) POC Glucose 135 H 171 H (70-105) Triglycerides (2-149) mg/dL 03/12/19 03/13/19 03/13/19 Range/Units 23:41 04:49 05:30 POC ABG pH 7.156 L (7.35-7.45) POC ABG pCO2 (35-45) POC ABG pO2 (80-105) POC Glucose 143 H (70-105) Triglycerides 472 H (2-149) mg/dL 03/13/19 Range/Units 05:40 POC ABG pH (7.35-7.45) POC ABG pCO2 (35-45) POC ABG pO2 (80-105) POC Glucose 174 H (70-105) Triglycerides (2-149) mg/dL
--- NOTE | 2019-03-13 10:09 | Progress Note ---
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 If pH <7.1 will use bicarbonate to support her acid-base -CXR, ABG in am -Assess daily for readiness for weaning SAT, SBT as tolerated Currently on high ventilatory requirements, not ready fro liberation trials -Continue small bowel feeding tube for nutritional support -VTE prophylaxis ( Enoxaparin) -Stress ulcer prophylaxis ( Famotidine) -Supportive transfusions as indicated fro HgB <7g/dL - Accuchecks with glycemic control for SSI (While critically ill target blood glucose of 140-180 mg/dL; avoid hypoglycemia) - mobility protocol for pressure ulcer prevention - Continue to monitor hemodynamics closely -Monitor electrolyte profile closely and replete as indicated -Chronic home medications, resume as clinically indicated -Mercado catheter in this critically ill patient, with poor urine output, requiring accurate intake and output monitoring and acute renal failure with worsening indices. Not a candidate fro ANIMATION DIRECTOR at this point per Renal service -Wound care CONDITION: CRITICAL PROGNOSIS: GUARDED-POOR CODE STATUS: FULL CODE The high probability of a clinically significant, sudden or life-threatening deterioration of the [respiratory, cardiovascular, renal, hepatobiliary] system(s) required my full and direct attention, intervention and personal management. The aggregate critical care time was [35] minutes without overlap. Time includes spent on; [x] Data Review and interpretation [x] Patient assessment and monitoring of vital signs [x] Documentation [x] Medication orders and management Discussed extensively in ICU-IDT rounds. Per patient's and daughter, patient is to remain full care, full code and if trachesotomy and PEG are indicated they also want that. Subjective Date of service: 03/13/19 Principal diagnosis: Ac. hypoxemic resp failure; Sev Sepsis; R. pleural effusion; Met. breast CA Interval history: Patient is seen today for: Acute hypoxemic-hypercapnic respiratory failure; severe Sepsis with septic shock,HAP; ARDS; Right pleural effusion s/p thoracentesis; Metastatic breast cancer; Hypernatremia; Poor medical compliance; Obesity Seen and examined at bedside; 24hour events reviewed; nursing and respiratory care staff consulted; overnight events discussed; Remains critically ill on mechanical ventilatory support; on vasopressor support; on going recurrent desaturations on AC-PCV PEEP 14 and FIO2 100% LIJ to CVP, worsening renal function, but too unstable fro ANIMATION DIRECTOR. On going diarrhea. Hypotension and elevated triglycerides on propofol, which was discontinued this morning. On fentanyl. RN reports dirrheal stools, FMS in place Remains on norepinephrine at 6mcg and fixed dose vasopressin. Low grade fevers this morning. Cultures as negative so far On MVS AC-PC 35/14/100% ABG 7.16/85.3/91 Objective Vital Signs - 12hr 03/12/19 03/12/19 03/12/19 22:15 22:30 22:46 Temperature Pulse Rate 114 H 112 H 107 H Pulse Rate [ Anterior Throughout] Respiratory 35 H 36 H 22 Rate Respiratory Rate [Anterior Throughout] Blood Pressure 123/56 128/54 126/59 O2 Sat by Pulse 93 93 92 Oximetry 03/12/19 03/12/19 03/12/19 23:00 23:06 23:15 Temperature Pulse Rate 97 H 105 H 109 H Pulse Rate [ Anterior Throughout] Respiratory 38 H 37 H 37 H Rate Respiratory Rate [Anterior Throughout] Blood Pressure 129/61 129/61 136/65 O2 Sat by Pulse 91 92 92 Oximetry 03/12/19 03/12/19 03/13/19 23:30 23:45 00:00 Temperature 99.6 F Pulse Rate 102 H 104 H 103 H Pulse Rate [ Anterior Throughout] Respiratory 24 35 H 36 H Rate Respiratory Rate [Anterior Throughout] Blood Pressure 138/64 131/70 143/62 O2 Sat by Pulse 93 91 91 Oximetry 03/13/19 03/13/19 03/13/19 00:15 00:30 00:34 Temperature Pulse Rate 109 H 105 H 114 H Pulse Rate [ Anterior Throughout] Respiratory 37 H 38 H Rate Respiratory Rate [Anterior Throughout] Blood Pressure 140/68 138/74 138/74 O2 Sat by Pulse 91 86 Oximetry 03/13/19 03/13/19 03/13/19 00:45 01:00 01:15 Temperature Pulse Rate 107 H 107 H 111 H Pulse Rate [ Anterior Throughout] Respiratory 34 H 39 H 38 H Rate Respiratory Rate [Anterior Throughout] Blood Pressure 123/66 112/70 122/61 O2 Sat by Pulse 93 93 93 Oximetry 03/13/19 03/13/19 03/13/19 01:30 01:45 02:00 Temperature Pulse Rate 103 H 101 H 111 H Pulse Rate [ Anterior Throughout] Respiratory 33 H 13 12 Rate Respiratory Rate [Anterior Throughout] Blood Pressure 128/63 115/56 104/57 O2 Sat by Pulse 93 95 96 Oximetry 03/13/19 03/13/19 03/13/19 02:15 02:30 02:45 Temperature Pulse Rate 104 H 96 H 105 H Pulse Rate [ Anterior Throughout] Respiratory 32 H 35 H 36 H Rate Respiratory Rate [Anterior Throughout] Blood Pressure 117/63 118/47 117/56 O2 Sat by Pulse 96 96 Oximetry 03/13/19 03/13/19 03/13/19 03:00 03:15 03:30 Temperature Pulse Rate 107 H 107 H 103 H Pulse Rate [ Anterior Throughout] Respiratory 25 H 33 H 22 Rate Respiratory Rate [Anterior Throughout] Blood Pressure 113/62 120/49 103/57 O2 Sat by Pulse 96 98 95 Oximetry 03/13/19 03/13/19 03/13/19 03:45 03:52 04:00 Temperature 99.0 F Pulse Rate 103 H 102 H Pulse Rate [ Anterior Throughout] Respiratory 21 27 H Rate Respiratory Rate [Anterior Throughout] Blood Pressure 127/56 120/62 O2 Sat by Pulse 95 96 Oximetry 03/13/19 03/13/19 03/13/19 04:15 04:30 04:43 Temperature Pulse Rate 107 H 104 H 86 Pulse Rate [ Anterior Throughout] Respiratory 16 18 Rate Respiratory Rate [Anterior Throughout] Blood Pressure 124/57 118/52 118/52 O2 Sat by Pulse 96 96 94 Oximetry 03/13/19 03/13/19 03/13/19 04:45 05:00 05:15 Temperature Pulse Rate 91 H 113 H 101 H Pulse Rate [ Anterior Throughout] Respiratory 15 13 12 Rate Respiratory Rate [Anterior Throughout] Blood Pressure 119/57 108/50 101/45 O2 Sat by Pulse 90 97 97 Oximetry 03/13/19 03/13/19 03/13/19 05:30 05:45 06:00 Temperature Pulse Rate 104 H 106 H 105 H Pulse Rate [ Anterior Throughout] Respiratory 13 36 H 25 H Rate Respiratory Rate [Anterior Throughout] Blood Pressure 99/41 106/48 106/40 O2 Sat by Pulse 97 97 95 Oximetry 03/13/19 03/13/19 03/13/19 06:15 06:30 06:45 Temperature Pulse Rate 107 H 104 H 107 H Pulse Rate [ Anterior Throughout] Respiratory 30 H 37 H 29 H Rate Respiratory Rate [Anterior Throughout] Blood Pressure 97/43 102/39 109/45 O2 Sat by Pulse 96 97 96 Oximetry 03/13/19 03/13/19 03/13/19 07:00 07:15 07:30 Temperature Pulse Rate 102 H 99 H 99 H Pulse Rate [ Anterior Throughout] Respiratory 37 H 26 H 14 Rate Respiratory Rate [Anterior Throughout] Blood Pressure 107/45 97/39 102/33 O2 Sat by Pulse 94 93 91 Oximetry 03/13/19 03/13/19 03/13/19 07:45 08:00 08:12 Temperature 99.4 F Pulse Rate 105 H 111 H 100 H Pulse Rate [ 106 H Anterior Throughout] Respiratory 14 15 Rate Respiratory 35 H Rate [Anterior Throughout] Blood Pressure 91/37 107/38 95/35 O2 Sat by Pulse 93 91 93 Oximetry 03/13/19 03/13/19 03/13/19 08:15 08:30 08:45 Temperature Pulse Rate 103 H 99 H 112 H Pulse Rate [ Anterior Throughout] Respiratory 16 14 15 Rate Respiratory Rate [Anterior Throughout] Blood Pressure 95/35 95/35 102/40 O2 Sat by Pulse 94 87 95 Oximetry 03/13/19 03/13/19 03/13/19 09:00 09:15 09:30 Temperature Pulse Rate 113 H 112 H 111 H Pulse Rate [ Anterior Throughout] Respiratory 13 13 13 Rate Respiratory Rate [Anterior Throughout] Blood Pressure 95/44 92/44 98/43 O2 Sat by Pulse 96 96 96 Oximetry 03/13/19 03/13/19 09:45 10:00 Temperature Pulse Rate 113 H 114 H Pulse Rate [ Anterior Throughout] Respiratory 14 13 Rate Respiratory Rate [Anterior Throughout] Blood Pressure 101/44 100/50 O2 Sat by Pulse 96 95 Oximetry Constitutional: lethargic, appears uncomfortable, other (middle aged obese AAF with moderately increased respiratory distress on MVS) Eyes: icteric ENT: other (Small bowel feeding tube in place, 7.[address] 23cm at the lip) Neck: supple, no lymphadenopathy, no JVD, other (Left IJ CVC; large neck circumference) Effort: mildly labored, other (Right breast swollen with induration) Ascultation: Bilateral: diminished breath sounds, rales Percussion: Bilateral: not dull Cardiovascular: regular rate and rhythm, other Gastrointestinal: normoactive bowel sounds, soft, non-tender, non-distended Integumentary: other (Chest wall wound) Extremities: no cyanosis, pulses normal, no ischemia or petechiae, edema, other (edema) Neurologic: pupils equal and round, other (sedated, unable to assess) Psychiatric: other (unable to assess re: AMS) CBC and BMP: 03/12/19 05:30 03/13/19 11:30 ABG, PT/INR, D-dimer: ABG POC ABG pH 7.156 (7.35-7.45) L 03/13/19 04:49 ABG pH 7.335 pH Units (7.350-7.450) L 03/03/19 05:25 ABG pCO2 61.3 mm Hg 03/03/19 05:25 POC ABG pO2 91 (80-105) 03/13/19 04:49 ABG pO2 89.2 mm Hg (80.0-90.0) 03/03/19 05:25 POC ABG HCO3 30.1 (22-26 mml/L) 03/13/19 04:49 POC ABG Total CO2 33 (23-27mmol/L) 03/13/19 04:49 POC ABG O2 Sat 93 03/13/19 04:49 ABG O2 Saturation 97.0 % (95.0-99.0) 03/03/19 05:25 PT/INR, D-dimer PT 14.8 Sec. (12.2-14.9) 02/27/19 12:38 INR 1.17 (0.87-1.13) H 02/27/19 12:38 D-Dimer 5778.32 ng/mlDDU (0-234) H 02/27/19 12:38 Abnormal lab findings: Abnormal Labs 02/27/19 02/27/19 02/27/19 11:33 11:33 11:33 WBC 18.6 H RBC 3.60 L Hgb 8.7 L Hct 28.8 L MCH 24 L MCHC RDW 23.0 H Plt Count 507 H Lymph % (Auto) 12.9 L [place] # 1.3 H Seg Neutrophils % 79.7 H Seg Neuts % (Manual) Lymphocytes % (Manual) Nucleated RBC % Seg Neutrophils # 14.8 H Seg Neutrophils # Man Lymphocytes # (Manual) Monocytes # (Manual) INR D-Dimer POC ABG pH ABG pH POC ABG pCO2 POC ABG pO2 ABG pO2 ABG HCO3 ABG O2 Saturation ABG Base Excess ABG Hemoglobin Oxyhemoglobin Sodium Potassium Chloride 96.8 L Carbon Dioxide BUN 28 H Creatinine 0.5 L Glucose 169 H POC Glucose Lactic Acid 3.40 H* Phosphorus Magnesium AST ALT Alkaline Phosphatase Ammonia Total Creatine Kinase 197 H CK-MB (CK-2) 4.1 H NT-Pro-B Natriuret Pep Total Protein Albumin Triglycerides Free T4 Urine Creatinine Urine Chloride Crossmatch 02/27/19 02/27/19 02/27/19 11:33 11:45 11:47 WBC RBC Hgb Hct MCH MCHC RDW Plt Count Lymph % (Auto) [place] # Seg Neutrophils % Seg Neuts % (Manual) Lymphocytes % (Manual) Nucleated RBC % Seg Neutrophils # Seg Neutrophils # Man Lymphocytes # (Manual) Monocytes # (Manual) INR D-Dimer POC ABG pH ABG pH POC ABG pCO2 POC ABG pO2 ABG pO2 ABG HCO3 ABG O2 Saturation ABG Base Excess ABG Hemoglobin Oxyhemoglobin Sodium Potassium Chloride Carbon Dioxide BUN Creatinine Glucose POC Glucose 169 H Lactic Acid Phosphorus Magnesium AST 95 H ALT Alkaline Phosphatase 130 H Ammonia Total Creatine Kinase CK-MB (CK-2) NT-Pro-B Natriuret Pep Total Protein Albumin 2.9 L Triglycerides Free T4 Urine Creatinine Urine Chloride Crossmatch See Detail 02/27/19 02/27/19 02/27/19 12:30 12:38 14:08 WBC RBC Hgb Hct MCH MCHC RDW Plt Count Lymph % (Auto) [place] # Seg Neutrophils % Seg Neuts % (Manual) Lymphocytes % (Manual) Nucleated RBC % Seg Neutrophils # Seg Neutrophils # Man Lymphocytes # (Manual) Monocytes # (Manual) INR 1.17 H D-Dimer 5778.32 H POC ABG pH 7.326 L ABG pH POC ABG pCO2 POC ABG pO2 129 H ABG pO2 ABG HCO3 ABG O2 Saturation ABG Base Excess ABG Hemoglobin Oxyhemoglobin Sodium Potassium Chloride Carbon Dioxide BUN Creatinine Glucose POC Glucose Lactic Acid 3.00 H* Phosphorus Magnesium AST ALT Alkaline Phosphatase Ammonia Total Creatine Kinase CK-MB (CK-2) NT-Pro-B Natriuret Pep Total Protein Albumin Triglycerides Free T4 Urine Creatinine Urine Chloride Crossmatch 02/27/19 02/27/19 02/27/19 15:03 16:06 18:08 WBC RBC Hgb Hct MCH MCHC RDW Plt Count Lymph % (Auto) [place] # Seg Neutrophils % Seg Neuts % (Manual) Lymphocytes % (Manual) Nucleated RBC % Seg Neutrophils # Seg Neutrophils # Man Lymphocytes # (Manual) Monocytes # (Manual) INR D-Dimer POC ABG pH ABG pH POC ABG pCO2 68.8 H POC ABG pO2 225 H ABG pO2 ABG HCO3 ABG O2 Saturation ABG Base Excess ABG Hemoglobin Oxyhemoglobin Sodium Potassium Chloride Carbon Dioxide BUN Creatinine Glucose POC Glucose Lactic Acid 3.20 H* 2.80 H* Phosphorus Magnesium AST ALT Alkaline Phosphatase Ammonia Total Creatine Kinase CK-MB (CK-2) NT-Pro-B Natriuret Pep Total Protein Albumin Triglycerides Free T4 Urine Creatinine Urine Chloride Crossmatch 02/27/19 02/28/19 02/28/19 18:12 10:00 10:00 WBC 13.3 H RBC 3.39 L Hgb 8.1 L Hct 26.7 L MCH 24 L MCHC RDW 22.5 H Plt Count Lymph % (Auto) [place] # Seg Neutrophils % Seg Neuts % (Manual) Lymphocytes % (Manual) Nucleated RBC % Seg Neutrophils # Seg Neutrophils # Man Lymphocytes # (Manual) Monocytes # (Manual) INR D-Dimer POC ABG pH ABG pH POC ABG pCO2 POC ABG pO2 ABG pO2 ABG HCO3 ABG O2 Saturation ABG Base Excess ABG Hemoglobin Oxyhemoglobin Sodium 146 H Potassium Chloride Carbon Dioxide 32 H BUN 32 H Creatinine 0.5 L Glucose 111 H POC Glucose Lactic Acid 2.30 H* Phosphorus Magnesium AST 93 H ALT Alkaline Phosphatase Ammonia Total Creatine Kinase CK-MB (CK-2) NT-Pro-B Natriuret Pep Total Protein Albumin 2.6 L Triglycerides Free T4 Urine Creatinine Urine Chloride Crossmatch 02/28/19 03/01/19 03/01/19 10:26 00:05 05:00 WBC 20.2 H RBC Hgb 9.0 L Hct 29.9 L MCH 24 L MCHC RDW 22.8 H Plt Count 498 H Lymph % (Auto) [place] # Seg Neutrophils % Seg Neuts % (Manual) Lymphocytes % (Manual) Nucleated RBC % Seg Neutrophils # Seg Neutrophils # Man Lymphocytes # (Manual) Monocytes # (Manual) INR D-Dimer POC ABG pH ABG pH POC ABG pCO2 54.2 H POC ABG pO2 ABG pO2 ABG HCO3 ABG O2 Saturation ABG Base Excess ABG Hemoglobin Oxyhemoglobin Sodium Potassium Chloride Carbon Dioxide BUN Creatinine Glucose POC Glucose 167 H Lactic Acid Phosphorus Magnesium AST ALT Alkaline Phosphatase Ammonia Total Creatine Kinase CK-MB (CK-2) NT-Pro-B Natriuret Pep Total Protein Albumin Triglycerides Free T4 Urine Creatinine Urine Chloride Crossmatch 03/01/19 03/01/19 03/01/19 05:00 12:36 17:31 WBC RBC Hgb Hct MCH MCHC RDW Plt Count Lymph % (Auto) [place] # Seg Neutrophils % Seg Neuts % (Manual) Lymphocytes % (Manual) Nucleated RBC % Seg Neutrophils # Seg Neutrophils # Man Lymphocytes # (Manual) Monocytes # (Manual) INR D-Dimer POC ABG pH ABG pH POC ABG pCO2 POC ABG pO2 ABG pO2 ABG HCO3 ABG O2 Saturation ABG Base Excess ABG Hemoglobin Oxyhemoglobin Sodium 148 H Potassium Chloride Carbon Dioxide 37 H BUN 43 H Creatinine 0.6 L Glucose 150 H POC Glucose 140 H 157 H Lactic Acid Phosphorus Magnesium AST ALT Alkaline Phosphatase Ammonia Total Creatine Kinase CK-MB (CK-2) NT-Pro-B Natriuret Pep Total Protein Albumin Triglycerides Free T4 Urine Creatinine Urine Chloride Crossmatch 03/02/19 03/02/19 03/02/19 04:29 04:32 05:27 WBC RBC Hgb Hct MCH MCHC RDW Plt Count Lymph % (Auto) [place] # Seg Neutrophils % Seg Neuts % (Manual) Lymphocytes % (Manual) Nucleated RBC % Seg Neutrophils # Seg Neutrophils # Man Lymphocytes # (Manual) Monocytes # (Manual) INR D-Dimer POC ABG pH 7.056 L ABG pH POC ABG pCO2 POC ABG pO2 64 L ABG pO2 ABG HCO3 ABG O2 Saturation ABG Base Excess ABG Hemoglobin Oxyhemoglobin Sodium Potassium Chloride Carbon Dioxide BUN Creatinine Glucose POC Glucose 161 H Lactic Acid Phosphorus Magnesium AST ALT Alkaline Phosphatase Ammonia Total Creatine Kinase CK-MB (CK-2) NT-Pro-B Natriuret Pep 2143 H Total Protein Albumin Triglycerides Free T4 Urine Creatinine Urine Chloride Crossmatch 03/02/19 03/02/19 03/02/19 05:27 05:27 05:27 WBC 17.8 H RBC 3.50 L Hgb 8.5 L Hct 29.5 L MCH 24 L MCHC 29 L RDW 21.9 H Plt Count Lymph % (Auto) [place] # Seg Neutrophils % Seg Neuts % (Manual) 94.0 H Lymphocytes % (Manual) 2.0 L Nucleated RBC % 1.0 H Seg Neutrophils # Seg Neutrophils # Man 16.7 H Lymphocytes # (Manual) 0.4 L Monocytes # (Manual) INR D-Dimer POC ABG pH ABG pH POC ABG pCO2 POC ABG pO2 ABG pO2 ABG HCO3 ABG O2 Saturation ABG Base Excess ABG Hemoglobin Oxyhemoglobin Sodium 156 H D Potassium 5.4 H Chloride 108.6 H Carbon Dioxide 39 H BUN 60 H Creatinine Glucose 159 H POC Glucose Lactic Acid Phosphorus Magnesium AST 164 H ALT Alkaline Phosphatase 164 H Ammonia 81.0 H Total Creatine Kinase CK-MB (CK-2) NT-Pro-B Natriuret Pep Total Protein 6.2 L Albumin 2.2 L Triglycerides Free T4 Urine Creatinine Urine Chloride Crossmatch 03/02/19 03/02/19 03/02/19 05:27 06:04 10:56 WBC RBC Hgb Hct MCH MCHC RDW Plt Count Lymph % (Auto) [place] # Seg Neutrophils % Seg Neuts % (Manual) Lymphocytes % (Manual) Nucleated RBC % Seg Neutrophils # Seg Neutrophils # Man Lymphocytes # (Manual) Monocytes # (Manual) INR D-Dimer POC ABG pH ABG pH 7.239 L POC ABG pCO2 POC ABG pO2 ABG pO2 60.0 L 103.9 H ABG HCO3 36.6 H 32.9 H ABG O2 Saturation 88.3 L ABG Base Excess 7.3 H 7.7 H ABG Hemoglobin 9.1 L 9.0 L Oxyhemoglobin 86.3 L Sodium Potassium Chloride Carbon Dioxide BUN Creatinine Glucose POC Glucose Lactic Acid Phosphorus 6.90 H Magnesium 2.80 H AST ALT Alkaline Phosphatase Ammonia Total Creatine Kinase CK-MB (CK-2) NT-Pro-B Natriuret Pep Total Protein Albumin Triglycerides Free T4 Urine Creatinine Urine Chloride Crossmatch 03/02/19 03/02/19 03/02/19 13:58 23:40 Unknown WBC RBC Hgb Hct MCH MCHC RDW Plt Count Lymph % (Auto) [place] # Seg Neutrophils % Seg Neuts % (Manual) Lymphocytes % (Manual) Nucleated RBC % Seg Neutrophils # Seg Neutrophils # Man Lymphocytes # (Manual) Monocytes # (Manual) INR D-Dimer POC ABG pH ABG pH POC ABG pCO2 POC ABG pO2 ABG pO2 ABG HCO3 ABG O2 Saturation ABG Base Excess ABG Hemoglobin Oxyhemoglobin Sodium Potassium Chloride Carbon Dioxide BUN Creatinine Glucose POC Glucose 127 H 161 H Lactic Acid Phosphorus Magnesium AST ALT Alkaline Phosphatase Ammonia Total Creatine Kinase CK-MB (CK-2) NT-Pro-B Natriuret Pep Total Protein Albumin Triglycerides Free T4 Urine Creatinine 218.2 H Urine Chloride Crossmatch 03/03/19 03/03/19 03/03/19 05:00 05:00 05:25 WBC 17.8 H RBC 3.62 L Hgb 8.8 L Hct 28.9 L MCH 24 L MCHC RDW 22.8 H Plt Count Lymph % (Auto) [place] # Seg Neutrophils % Seg Neuts % (Manual) 96.0 H Lymphocytes % (Manual) 1.0 L Nucleated RBC % 3.0 H Seg Neutrophils # Seg Neutrophils # Man 17.1 H Lymphocytes # (Manual) 0.2 L Monocytes # (Manual) INR D-Dimer POC ABG pH ABG pH 7.335 L POC ABG pCO2 POC ABG pO2 ABG pO2 ABG HCO3 32.0 H ABG O2 Saturation ABG Base Excess 5.2 H ABG Hemoglobin 8.2 L Oxyhemoglobin 94.9 L Sodium 160 H Potassium 3.5 L D Chloride 113.7 H Carbon Dioxide BUN 90 H Creatinine 1.7 H D Glucose 149 H POC Glucose Lactic Acid Phosphorus Magnesium 2.90 H AST 624 H ALT 211 H Alkaline Phosphatase 416 H Ammonia Total Creatine Kinase CK-MB (CK-2) NT-Pro-B Natriuret Pep Total Protein 6.2 L Albumin 2.2 L Triglycerides Free T4 Urine Creatinine Urine Chloride Crossmatch 03/03/19 03/03/19 03/03/19 05:41 12:27 15:54 WBC RBC Hgb Hct MCH MCHC RDW Plt Count Lymph % (Auto) [place] # Seg Neutrophils % Seg Neuts % (Manual) Lymphocytes % (Manual) Nucleated RBC % Seg Neutrophils # Seg Neutrophils # Man Lymphocytes # (Manual) Monocytes # (Manual) INR D-Dimer POC ABG pH ABG pH POC ABG pCO2 POC ABG pO2 ABG pO2 ABG HCO3 ABG O2 Saturation ABG Base Excess ABG Hemoglobin Oxyhemoglobin Sodium Potassium Chloride Carbon Dioxide BUN Creatinine Glucose POC Glucose 150 H 167 H Lactic Acid Phosphorus Magnesium AST ALT Alkaline Phosphatase Ammonia Total Creatine Kinase CK-MB (CK-2) NT-Pro-B Natriuret Pep Total Protein Albumin Triglycerides Free T4 0.50 L Urine Creatinine Urine Chloride Crossmatch 03/03/19 03/03/19 03/04/19 17:32 23:57 04:11 WBC RBC Hgb Hct MCH MCHC RDW Plt Count Lymph % (Auto) [place] # Seg Neutrophils % Seg Neuts % (Manual) Lymphocytes % (Manual) Nucleated RBC % Seg Neutrophils # Seg Neutrophils # Man Lymphocytes # (Manual) Monocytes # (Manual) INR D-Dimer POC ABG pH 7.332 L ABG pH POC ABG pCO2 57.1 H POC ABG pO2 ABG pO2 ABG HCO3 ABG O2 Saturation ABG Base Excess ABG Hemoglobin Oxyhemoglobin Sodium Potassium Chloride Carbon Dioxide BUN Creatinine Glucose POC Glucose 165 H 202 H Lactic Acid Phosphorus Magnesium AST ALT Alkaline Phosphatase Ammonia Total Creatine Kinase CK-MB (CK-2) NT-Pro-B Natriuret Pep Total Protein Albumin Triglycerides Free T4 Urine Creatinine Urine Chloride Crossmatch 03/04/19 03/04/19 03/04/19 04:38 04:38 05:30 WBC 23.0 H RBC 3.36 L Hgb 7.9 L Hct 26.6 L MCH 24 L MCHC RDW 23.1 H Plt Count Lymph % (Auto) [place] # Seg Neutrophils % Seg Neuts % (Manual) 98.0 H Lymphocytes % (Manual) 0 L Nucleated RBC % Seg Neutrophils # Seg Neutrophils # Man 22.5 H Lymphocytes # (Manual) 0.0 L Monocytes # (Manual) INR D-Dimer POC ABG pH ABG pH POC ABG pCO2 POC ABG pO2 ABG pO2 ABG HCO3 ABG O2 Saturation ABG Base Excess ABG Hemoglobin Oxyhemoglobin Sodium 151 H D Potassium Chloride 110.4 H Carbon Dioxide BUN 103 H Creatinine 2.0 H Glucose 177 H POC Glucose 172 H Lactic Acid Phosphorus Magnesium AST 244 H ALT 159 H Alkaline Phosphatase 365 H Ammonia Total Creatine Kinase CK-MB (CK-2) NT-Pro-B Natriuret Pep Total Protein 5.9 L Albumin 2.1 L Triglycerides Free T4 Urine Creatinine Urine Chloride Crossmatch 03/04/19 03/04/19 03/04/19 12:10 12:39 18:11 WBC RBC Hgb Hct MCH MCHC RDW Plt Count Lymph % (Auto) [place] # Seg Neutrophils % Seg Neuts % (Manual) Lymphocytes % (Manual) Nucleated RBC % Seg Neutrophils # Seg Neutrophils # Man Lymphocytes # (Manual) Monocytes # (Manual) INR D-Dimer POC ABG pH ABG pH POC ABG pCO2 POC ABG pO2 ABG pO2 ABG HCO3 ABG O2 Saturation ABG Base Excess ABG Hemoglobin Oxyhemoglobin Sodium Potassium Chloride Carbon Dioxide BUN Creatinine Glucose POC Glucose 226 H 173 H Lactic Acid Phosphorus Magnesium AST ALT Alkaline Phosphatase Ammonia Total Creatine Kinase CK-MB (CK-2) NT-Pro-B Natriuret Pep Total Protein Albumin Triglycerides Free T4 Urine Creatinine 185.9 H Urine Chloride 10.2 L Crossmatch 03/04/19 03/05/19 03/05/19 23:24 04:16 04:28 WBC 23.8 H RBC 3.08 L Hgb 7.5 L Hct 25.0 L MCH 24 L MCHC RDW 23.0 H Plt Count Lymph % (Auto) [place] # Seg Neutrophils % Seg Neuts % (Manual) 96.0 H Lymphocytes % (Manual) 3.0 L Nucleated RBC % 1.0 H Seg Neutrophils # Seg Neutrophils # Man 22.8 H Lymphocytes # (Manual) 0.7 L Monocytes # (Manual) INR D-Dimer POC ABG pH 7.274 L ABG pH POC ABG pCO2 59.7 H POC ABG pO2 107 H ABG pO2 ABG HCO3 ABG O2 Saturation ABG Base Excess ABG Hemoglobin Oxyhemoglobin Sodium Potassium Chloride Carbon Dioxide BUN Creatinine Glucose POC Glucose 184 H Lactic Acid Phosphorus Magnesium AST ALT Alkaline Phosphatase Ammonia Total Creatine Kinase CK-MB (CK-2) NT-Pro-B Natriuret Pep Total Protein Albumin Triglycerides Free T4 Urine Creatinine Urine Chloride Crossmatch 03/05/19 03/05/19 03/05/19 04:28 04:28 05:29 WBC RBC Hgb Hct MCH MCHC RDW Plt Count Lymph % (Auto) [place] # Seg Neutrophils % Seg Neuts % (Manual) Lymphocytes % (Manual) Nucleated RBC % Seg Neutrophils # Seg Neutrophils # Man Lymphocytes # (Manual) Monocytes # (Manual) INR D-Dimer POC ABG pH ABG pH POC ABG pCO2 POC ABG pO2 ABG pO2 ABG HCO3 ABG O2 Saturation ABG Base Excess ABG Hemoglobin Oxyhemoglobin Sodium 147 H Potassium Chloride 107.9 H Carbon Dioxide BUN 112 H Creatinine 2.3 H Glucose 153 H POC Glucose 147 H Lactic Acid Phosphorus Magnesium AST 188 H ALT 138 H Alkaline Phosphatase 384 H Ammonia 71.0 H Total Creatine Kinase CK-MB (CK-2) NT-Pro-B Natriuret Pep Total Protein 6.0 L Albumin 2.2 L Triglycerides Free T4 Urine Creatinine Urine Chloride Crossmatch 03/05/19 03/05/19 03/05/19 12:00 17:44 23:48 WBC RBC Hgb Hct MCH MCHC RDW Plt Count Lymph % (Auto) [place] # Seg Neutrophils % Seg Neuts % (Manual) Lymphocytes % (Manual) Nucleated RBC % Seg Neutrophils # Seg Neutrophils # Man Lymphocytes # (Manual) Monocytes # (Manual) INR D-Dimer POC ABG pH ABG pH POC ABG pCO2 POC ABG pO2 ABG pO2 ABG HCO3 ABG O2 Saturation ABG Base Excess ABG Hemoglobin Oxyhemoglobin Sodium Potassium Chloride Carbon Dioxide BUN Creatinine Glucose POC Glucose 181 H 111 H 120 H Lactic Acid Phosphorus Magnesium AST ALT Alkaline Phosphatase Ammonia Total Creatine Kinase CK-MB (CK-2) NT-Pro-B Natriuret Pep Total Protein Albumin Triglycerides Free T4 Urine Creatinine Urine Chloride Crossmatch 03/06/19 03/06/19 03/06/19 04:55 04:55 05:19 WBC 26.5 H RBC 3.28 L Hgb 7.7 L Hct 26.4 L MCH 24 L MCHC 29 L RDW 23.0 H Plt Count Lymph % (Auto) [place] # Seg Neutrophils % Seg Neuts % (Manual) 98.0 H Lymphocytes % (Manual) 2.0 L Nucleated RBC % 2.0 H Seg Neutrophils # Seg Neutrophils # Man 26.0 H Lymphocytes # (Manual) 0.5 L Monocytes # (Manual) INR D-Dimer POC ABG pH 7.248 L ABG pH POC ABG pCO2 65.9 H POC ABG pO2 79 L ABG pO2 ABG HCO3 ABG O2 Saturation ABG Base Excess ABG Hemoglobin Oxyhemoglobin Sodium 147 H Potassium Chloride Carbon Dioxide BUN 132 H Creatinine 2.6 H Glucose 128 H POC Glucose Lactic Acid Phosphorus Magnesium AST 207 H ALT 144 H Alkaline Phosphatase 529 H Ammonia Total Creatine Kinase CK-MB (CK-2) NT-Pro-B Natriuret Pep Total Protein 6.1 L Albumin 2.4 L Triglycerides Free T4 Urine Creatinine Urine Chloride Crossmatch 03/06/19 03/06/19 03/06/19 05:35 13:06 15:20 WBC RBC Hgb Hct MCH MCHC RDW Plt Count Lymph % (Auto) [place] # Seg Neutrophils % Seg Neuts % (Manual) Lymphocytes % (Manual) Nucleated RBC % Seg Neutrophils # Seg Neutrophils # Man Lymphocytes # (Manual) Monocytes # (Manual) INR D-Dimer POC ABG pH 7.263 L ABG pH POC ABG pCO2 64.7 H POC ABG pO2 67 L ABG pO2 ABG HCO3 ABG O2 Saturation ABG Base Excess ABG Hemoglobin Oxyhemoglobin Sodium Potassium Chloride Carbon Dioxide BUN Creatinine Glucose POC Glucose 113 H 123 H Lactic Acid Phosphorus Magnesium AST ALT Alkaline Phosphatase Ammonia Total Creatine Kinase CK-MB (CK-2) NT-Pro-B Natriuret Pep Total Protein Albumin Triglycerides Free T4 Urine Creatinine Urine Chloride Crossmatch 03/06/19 03/06/19 03/07/19 18:41 23:33 04:34 WBC RBC Hgb Hct MCH MCHC RDW Plt Count Lymph % (Auto) [place] # Seg Neutrophils % Seg Neuts % (Manual) Lymphocytes % (Manual) Nucleated RBC % Seg Neutrophils # Seg Neutrophils # Man Lymphocytes # (Manual) Monocytes # (Manual) INR D-Dimer POC ABG pH 7.258 L ABG pH POC ABG pCO2 65.6 H POC ABG pO2 73 L ABG pO2 ABG HCO3 ABG O2 Saturation ABG Base Excess ABG Hemoglobin Oxyhemoglobin Sodium Potassium Chloride Carbon Dioxide BUN Creatinine Glucose POC Glucose 131 H 141 H Lactic Acid Phosphorus Magnesium AST ALT Alkaline Phosphatase Ammonia Total Creatine Kinase CK-MB (CK-2) NT-Pro-B Natriuret Pep Total Protein Albumin Triglycerides Free T4 Urine Creatinine Urine Chloride Crossmatch 03/07/19 03/07/19 03/07/19 05:13 11:47 12:19 WBC RBC Hgb Hct MCH MCHC RDW Plt Count Lymph % (Auto) [place] # Seg Neutrophils % Seg Neuts % (Manual) Lymphocytes % (Manual) Nucleated RBC % Seg Neutrophils # Seg Neutrophils # Man Lymphocytes # (Manual) Monocytes # (Manual) INR D-Dimer POC ABG pH ABG pH POC ABG pCO2 POC ABG pO2 ABG pO2 ABG HCO3 ABG O2 Saturation ABG Base Excess ABG Hemoglobin Oxyhemoglobin Sodium Potassium Chloride Carbon Dioxide BUN Creatinine Glucose POC Glucose 122 H 128 H 132 H Lactic Acid Phosphorus Magnesium AST ALT Alkaline Phosphatase Ammonia Total Creatine Kinase CK-MB (CK-2) NT-Pro-B Natriuret Pep Total Protein Albumin Triglycerides Free T4 Urine Creatinine Urine Chloride Crossmatch 03/07/19 03/07/19 03/07/19 16:19 17:45 23:14 WBC RBC Hgb Hct MCH MCHC RDW Plt Count Lymph % (Auto) [place] # Seg Neutrophils % Seg Neuts % (Manual) Lymphocytes % (Manual) Nucleated RBC % Seg Neutrophils # Seg Neutrophils # Man Lymphocytes # (Manual) Monocytes # (Manual) INR D-Dimer POC ABG pH 7.246 L ABG pH POC ABG pCO2 65.2 H POC ABG pO2 69 L ABG pO2 ABG HCO3 ABG O2 Saturation ABG Base Excess ABG Hemoglobin Oxyhemoglobin Sodium Potassium Chloride Carbon Dioxide BUN Creatinine Glucose POC Glucose 159 H 152 H Lactic Acid Phosphorus Magnesium AST ALT Alkaline Phosphatase Ammonia Total Creatine Kinase CK-MB (CK-2) NT-Pro-B Natriuret Pep Total Protein Albumin Triglycerides Free T4 Urine Creatinine Urine Chloride Crossmatch 03/08/19 03/08/19 03/08/19 04:09 04:51 06:30 WBC 27.8 H RBC 3.35 L Hgb 7.9 L Hct 27.0 L MCH 24 L MCHC 29 L RDW 23.0 H Plt Count Lymph % (Auto) [place] # Seg Neutrophils % Seg Neuts % (Manual) 91.0 H Lymphocytes % (Manual) 4.0 L Nucleated RBC % 5.0 H Seg Neutrophils # Seg Neutrophils # Man 25.3 H Lymphocytes # (Manual) 1.1 L Monocytes # (Manual) 1.1 H INR D-Dimer POC ABG pH 7.155 L ABG pH POC ABG pCO2 POC ABG pO2 79 L ABG pO2 ABG HCO3 ABG O2 Saturation ABG Base Excess ABG Hemoglobin Oxyhemoglobin Sodium Potassium Chloride Carbon Dioxide BUN Creatinine Glucose POC Glucose 153 H Lactic Acid Phosphorus Magnesium AST ALT Alkaline Phosphatase Ammonia Total Creatine Kinase CK-MB (CK-2) NT-Pro-B Natriuret Pep Total Protein Albumin Triglycerides Free T4 Urine Creatinine Urine Chloride Crossmatch 03/08/19 03/08/19 03/08/19 06:30 09:29 12:13 WBC RBC Hgb Hct MCH MCHC RDW Plt Count Lymph % (Auto) [place] # Seg Neutrophils % Seg Neuts % (Manual) Lymphocytes % (Manual) Nucleated RBC % Seg Neutrophils # Seg Neutrophils # Man Lymphocytes # (Manual) Monocytes # (Manual) INR D-Dimer POC ABG pH 7.182 L ABG pH POC ABG pCO2 POC ABG pO2 77 L ABG pO2 ABG HCO3 ABG O2 Saturation ABG Base Excess ABG Hemoglobin Oxyhemoglobin Sodium Potassium 6.5 H* D Chloride Carbon Dioxide BUN 164 H Creatinine 3.3 H Glucose 141 H POC Glucose 133 H Lactic Acid Phosphorus Magnesium AST 543 H ALT 280 H Alkaline Phosphatase 641 H Ammonia Total Creatine Kinase CK-MB (CK-2) NT-Pro-B Natriuret Pep Total Protein 6.2 L Albumin 2.5 L Triglycerides Free T4 Urine Creatinine Urine Chloride Crossmatch 03/08/19 03/08/19 03/09/19 17:49 23:55 05:35 WBC RBC Hgb Hct MCH MCHC RDW Plt Count Lymph % (Auto) [place] # Seg Neutrophils % Seg Neuts % (Manual) Lymphocytes % (Manual) Nucleated RBC % Seg Neutrophils # Seg Neutrophils # Man Lymphocytes # (Manual) Monocytes # (Manual) INR D-Dimer POC ABG pH ABG pH POC ABG pCO2 POC ABG pO2 ABG pO2 ABG HCO3 ABG O2 Saturation ABG Base Excess ABG Hemoglobin Oxyhemoglobin Sodium Potassium Chloride Carbon Dioxide BUN Creatinine Glucose POC Glucose 159 H 136 H 134 H Lactic Acid Phosphorus Magnesium AST ALT Alkaline Phosphatase Ammonia Total Creatine Kinase CK-MB (CK-2) NT-Pro-B Natriuret Pep Total Protein Albumin Triglycerides Free T4 Urine Creatinine Urine Chloride Crossmatch 03/09/19 03/09/19 03/09/19 05:54 08:00 12:29 WBC RBC Hgb Hct MCH MCHC RDW Plt Count Lymph % (Auto) [place] # Seg Neutrophils % Seg Neuts % (Manual) Lymphocytes % (Manual) Nucleated RBC % Seg Neutrophils # Seg Neutrophils # Man Lymphocytes # (Manual) Monocytes # (Manual) INR D-Dimer POC ABG pH 7.160 L ABG pH POC ABG pCO2 POC ABG pO2 ABG pO2 ABG HCO3 ABG O2 Saturation ABG Base Excess ABG Hemoglobin Oxyhemoglobin Sodium Potassium 5.6 H Chloride 95.5 L Carbon Dioxide BUN 98 H Creatinine 2.7 H Glucose 143 H POC Glucose 144 H Lactic Acid Phosphorus Magnesium AST ALT Alkaline Phosphatase Ammonia Total Creatine Kinase CK-MB (CK-2) NT-Pro-B Natriuret Pep Total Protein Albumin Triglycerides Free T4 Urine Creatinine Urine Chloride Crossmatch 03/09/19 03/09/19 03/09/19 13:25 18:19 23:51 WBC RBC Hgb Hct MCH MCHC RDW Plt Count Lymph % (Auto) [place] # Seg Neutrophils % Seg Neuts % (Manual) Lymphocytes % (Manual) Nucleated RBC % Seg Neutrophils # Seg Neutrophils # Man Lymphocytes # (Manual) Monocytes # (Manual) INR D-Dimer POC ABG pH 7.184 L ABG pH POC ABG pCO2 POC ABG pO2 65 L ABG pO2 ABG HCO3 ABG O2 Saturation ABG Base Excess ABG Hemoglobin Oxyhemoglobin Sodium Potassium Chloride Carbon Dioxide BUN Creatinine Glucose POC Glucose 163 H 157 H Lactic Acid Phosphorus Magnesium AST ALT Alkaline Phosphatase Ammonia Total Creatine Kinase CK-MB (CK-2) NT-Pro-B Natriuret Pep Total Protein Albumin Triglycerides Free T4 Urine Creatinine Urine Chloride Crossmatch 03/10/19 03/10/19 03/10/19 03:55 05:48 11:47 WBC RBC Hgb Hct MCH MCHC RDW Plt Count Lymph % (Auto) [place] # Seg Neutrophils % Seg Neuts % (Manual) Lymphocytes % (Manual) Nucleated RBC % Seg Neutrophils # Seg Neutrophils # Man Lymphocytes # (Manual) Monocytes # (Manual) INR D-Dimer POC ABG pH 7.187 L ABG pH POC ABG pCO2 > 70 H POC ABG pO2 76 L ABG pO2 ABG HCO3 ABG O2 Saturation ABG Base Excess ABG Hemoglobin Oxyhemoglobin Sodium Potassium Chloride Carbon Dioxide BUN Creatinine Glucose POC Glucose 141 H 151 H Lactic Acid Phosphorus Magnesium AST ALT Alkaline Phosphatase Ammonia Total Creatine Kinase CK-MB (CK-2) NT-Pro-B Natriuret Pep Total Protein Albumin Triglycerides Free T4 Urine Creatinine Urine Chloride Crossmatch 03/10/19 03/10/19 03/10/19 18:19 21:28 23:45 WBC RBC Hgb Hct MCH MCHC RDW Plt Count Lymph % (Auto) [place] # Seg Neutrophils % Seg Neuts % (Manual) Lymphocytes % (Manual) Nucleated RBC % Seg Neutrophils # Seg Neutrophils # Man Lymphocytes # (Manual) Monocytes # (Manual) INR D-Dimer POC ABG pH 7.275 L ABG pH POC ABG pCO2 > 70 H POC ABG pO2 ABG pO2 ABG HCO3 ABG O2 Saturation ABG Base Excess ABG Hemoglobin Oxyhemoglobin Sodium Potassium Chloride Carbon Dioxide BUN Creatinine Glucose POC Glucose 161 H 141 H Lactic Acid Phosphorus Magnesium AST ALT Alkaline Phosphatase Ammonia Total Creatine Kinase CK-MB (CK-2) NT-Pro-B Natriuret Pep Total Protein Albumin Triglycerides Free T4 Urine Creatinine Urine Chloride Crossmatch 03/11/19 03/11/19 03/11/19 03:51 05:33 09:44 WBC RBC Hgb Hct MCH MCHC RDW Plt Count Lymph % (Auto) [place] # Seg Neutrophils % Seg Neuts % (Manual) Lymphocytes % (Manual) Nucleated RBC % Seg Neutrophils # Seg Neutrophils # Man Lymphocytes # (Manual) Monocytes # (Manual) INR D-Dimer POC ABG pH 7.252 L ABG pH POC ABG pCO2 > 70 H POC ABG pO2 71 L ABG pO2 ABG HCO3 ABG O2 Saturation ABG Base Excess ABG Hemoglobin Oxyhemoglobin Sodium Potassium Chloride 93.8 L Carbon Dioxide BUN 47 H Creatinine 2.4 H Glucose 136 H POC Glucose 205 H Lactic Acid Phosphorus Magnesium AST ALT Alkaline Phosphatase Ammonia Total Creatine Kinase CK-MB (CK-2) NT-Pro-B Natriuret Pep Total Protein Albumin Triglycerides Free T4 Urine Creatinine Urine Chloride Crossmatch 03/11/19 03/11/19 03/11/19 11:55 18:45 23:43 WBC RBC Hgb Hct MCH MCHC RDW Plt Count Lymph % (Auto) [place] # Seg Neutrophils % Seg Neuts % (Manual) Lymphocytes % (Manual) Nucleated RBC % Seg Neutrophils # Seg Neutrophils # Man Lymphocytes # (Manual) Monocytes # (Manual) INR D-Dimer POC ABG pH ABG pH POC ABG pCO2 POC ABG pO2 ABG pO2 ABG HCO3 ABG O2 Saturation ABG Base Excess ABG Hemoglobin Oxyhemoglobin Sodium Potassium Chloride Carbon Dioxide BUN Creatinine Glucose POC Glucose 144 H 135 H 128 H Lactic Acid Phosphorus Magnesium AST ALT Alkaline Phosphatase Ammonia Total Creatine Kinase CK-MB (CK-2) NT-Pro-B Natriuret Pep Total Protein Albumin Triglycerides Free T4 Urine Creatinine Urine Chloride Crossmatch 03/12/19 03/12/19 03/12/19 03:43 05:30 05:30 WBC 31.8 H RBC 3.36 L Hgb 8.0 L Hct 28.0 L MCH 24 L MCHC 29 L RDW 22.7 H Plt Count Lymph % (Auto) [place] # Seg Neutrophils % Seg Neuts % (Manual) 97.5 H Lymphocytes % (Manual) 1.5 L Nucleated RBC % 8.0 H Seg Neutrophils # Seg Neutrophils # Man 31.0 H Lymphocytes # (Manual) 0.5 L Monocytes # (Manual) INR D-Dimer POC ABG pH 7.157 L ABG pH POC ABG pCO2 > 70 H POC ABG pO2 79 L ABG pO2 ABG HCO3 ABG O2 Saturation ABG Base Excess ABG Hemoglobin Oxyhemoglobin Sodium Potassium Chloride 93.8 L Carbon Dioxide BUN 59 H Creatinine 2.9 H Glucose 131 H POC Glucose Lactic Acid Phosphorus Magnesium AST 515 H ALT 332 H Alkaline Phosphatase 994 H Ammonia Total Creatine Kinase CK-MB (CK-2) NT-Pro-B Natriuret Pep Total Protein 5.9 L Albumin 2.3 L Triglycerides Free T4 Urine Creatinine Urine Chloride Crossmatch 03/12/19 03/12/19 03/12/19 05:30 05:56 12:01 WBC RBC Hgb Hct MCH MCHC RDW Plt Count Lymph % (Auto) [place] # Seg Neutrophils % Seg Neuts % (Manual) Lymphocytes % (Manual) Nucleated RBC % Seg Neutrophils # Seg Neutrophils # Man Lymphocytes # (Manual) Monocytes # (Manual) INR D-Dimer POC ABG pH 7.119 L ABG pH POC ABG pCO2 POC ABG pO2 65 L ABG pO2 ABG HCO3 ABG O2 Saturation ABG Base Excess ABG Hemoglobin Oxyhemoglobin Sodium Potassium Chloride Carbon Dioxide BUN Creatinine Glucose POC Glucose 124 H Lactic Acid Phosphorus Magnesium AST ALT Alkaline Phosphatase Ammonia Total Creatine Kinase CK-MB (CK-2) NT-Pro-B Natriuret Pep Total Protein Albumin Triglycerides 366 H Free T4 Urine Creatinine Urine Chloride Crossmatch 03/12/19 03/12/19 03/12/19 12:03 17:52 23:41 WBC RBC Hgb Hct MCH MCHC RDW Plt Count Lymph % (Auto) [place] # Seg Neutrophils % Seg Neuts % (Manual) Lymphocytes % (Manual) Nucleated RBC % Seg Neutrophils # Seg Neutrophils # Man Lymphocytes # (Manual) Monocytes # (Manual) INR D-Dimer POC ABG pH ABG pH POC ABG pCO2 POC ABG pO2 ABG pO2 ABG HCO3 ABG O2 Saturation ABG Base Excess ABG Hemoglobin Oxyhemoglobin Sodium Potassium Chloride Carbon Dioxide BUN Creatinine Glucose POC Glucose 135 H 171 H 143 H Lactic Acid Phosphorus Magnesium AST ALT Alkaline Phosphatase Ammonia Total Creatine Kinase CK-MB (CK-2) NT-Pro-B Natriuret Pep Total Protein Albumin Triglycerides Free T4 Urine Creatinine Urine Chloride Crossmatch 03/13/19 03/13/19 03/13/19 04:49 05:30 05:40 WBC RBC Hgb Hct MCH MCHC RDW Plt Count Lymph % (Auto) [place] # Seg Neutrophils % Seg Neuts % (Manual) Lymphocytes % (Manual) Nucleated RBC % Seg Neutrophils # Seg Neutrophils # Man Lymphocytes # (Manual) Monocytes # (Manual) INR D-Dimer POC ABG pH 7.156 L ABG pH POC ABG pCO2 POC ABG pO2 ABG pO2 ABG HCO3 ABG O2 Saturation ABG Base Excess ABG Hemoglobin Oxyhemoglobin Sodium Potassium Chloride Carbon Dioxide BUN Creatinine Glucose POC Glucose 174 H Lactic Acid Phosphorus Magnesium AST ALT Alkaline Phosphatase Ammonia Total Creatine Kinase CK-MB (CK-2) NT-Pro-B Natriuret Pep Total Protein Albumin Triglycerides 472 H Free T4 Urine Creatinine Urine Chloride Crossmatch Chest x-ray: image reviewed Allied health notes reviewed: RT
[2019-03-13] MEDS: methylPREDNISolone Sod Succinate 40 MG/1 ML INJ IV SCH ×2 (10:55→22:28)
[2019-03-13] MEDS: FAMOTIDINE 20 MG/2 ML INJ IV SCH (10:56)
[2019-03-13] MEDS: ENOXAPARIN 30 MG/0.3 ML INJ SUB-Q SCH (10:56)
[2019-03-13] MEDS ORDERED: LACTULOSE 20 GM/30 ML ORAL LIQD PO SCH (11:00)
[2019-03-13 12:13] LABS: Calcium 8.7 mg/dL (8.4-10.2)
--- NOTE | 2019-03-13 21:57 | Progress Note ---
Assessment and Plan - Patient Problems (1) SELAM (acute kidney injury) Current Visit: Yes Status: Acute Plan to address problem: Acute tubular necrosis in the setting of hypotension/sepsis. Patient is dialysis requiring. Hemodynamic instability still precluding hemodialysis. Patient's prognosis is poor. I discussed this with patient's and the need to consider switch to palliative care. He wants to continue medical treatment for now. A lot of family and friends are praying for Patient he states (2) Acute respiratory failure Current Visit: Yes Status: Acute Qualifiers: Respiratory failure complication: hypoxia Qualified Code(s): J96.01 - Acute respiratory failure with hypoxia Plan to address problem: Continue ventilator management by pulmonary (3) Anasarca Current Visit: Yes Status: Acute Plan to address problem: Improved with Fluid removal with dialysis. Now worsening off of dialysis (4) Anemia Current Visit: Yes Status: Acute Qualifiers: Anemia type: unspecified type Qualified Code(s): D64.9 - Anemia, unspecified Plan to address problem: Give Erythropoetin on dialysis. (5) Hyperkalemia Current Visit: Yes Status: Acute Plan to address problem: Improved with dialysis. (6) Metastatic breast cancer Current Visit: Yes Status: Chronic Plan to address problem: Continue management by oncologist (7) Pneumonia Current Visit: Yes Status: Suspected Qualifiers: Pneumonia type: due to unspecified organism Laterality: bilateral Lung location: unspecified part of lung Qualified Code(s): J18.9 - Pneumonia, unspecified organism Plan to address problem: Continue antibiotics per infectious disease appropriately dosed to the degree of renal function Subjective Date of service: 03/13/19 Principal diagnosis: Ac. hypoxemic resp failure; Sev Sepsis; R. pleural effusion; Met. breast CA Interval history: Patient seen lying in bed. Intubated on ventilator. Fi O2/85% PEEP of 14. On Levophed and vasopressin. On Diprivan and fentanyl Objective - Exam Narrative Exam: Obese middle-aged -Citizen Of The [place] female lying in bed intubated on ventilator HEENT: NCAT, pink oral mucous membrane Neck: Supple, no venous distention CVS: S1S2 RRR with no murmur, rub or gallop Chest: Diminished breath sounds Abdomen: Obese soft, nontender, no organomegaly, bowel sounds are present Extremities: 2-3+ edema Neuro: Sedated on ventilator - Vital Signs Vital signs: Vital Signs - 12hr 03/13/19 03/13/19 03/13/19 10:00 10:15 10:30 Temperature Pulse Rate 114 H 110 H 111 H Pulse Rate [ Anterior Throughout] Pulse Rate [ From Monitor] Respiratory 13 13 15 Rate Respiratory Rate [Anterior Throughout] Respiratory 36 H Rate [Left Chest] Blood Pressure 100/50 107/52 106/52 O2 Sat by Pulse 95 91 96 Oximetry 03/13/19 03/13/19 03/13/19 10:45 11:00 11:16 Temperature Pulse Rate 101 H 101 H 105 H Pulse Rate [ Anterior Throughout] Pulse Rate [ From Monitor] Respiratory 13 15 16 Rate Respiratory Rate [Anterior Throughout] Respiratory Rate [Left Chest] Blood Pressure 102/47 103/48 122/59 O2 Sat by Pulse 96 96 94 Oximetry 03/13/19 03/13/19 03/13/19 11:30 11:45 11:58 Temperature Pulse Rate 114 H 106 H 106 H Pulse Rate [ Anterior Throughout] Pulse Rate [ From Monitor] Respiratory 22 17 Rate Respiratory Rate [Anterior Throughout] Respiratory Rate [Left Chest] Blood Pressure 117/55 120/56 120/52 O2 Sat by Pulse 94 95 95 Oximetry 03/13/19 03/13/19 03/13/19 12:00 12:15 12:30 Temperature 98.6 F Pulse Rate 106 H 114 H 102 H Pulse Rate [ Anterior Throughout] Pulse Rate [ 107 H From Monitor] Respiratory 15 24 17 Rate Respiratory Rate [Anterior Throughout] Respiratory Rate [Left Chest] Blood Pressure 120/52 113/52 104/50 O2 Sat by Pulse 94 94 95 Oximetry 03/13/19 03/13/19 03/13/19 12:45 13:00 13:15 Temperature Pulse Rate 111 H 114 H 102 H Pulse Rate [ Anterior Throughout] Pulse Rate [ From Monitor] Respiratory 16 22 21 Rate Respiratory Rate [Anterior Throughout] Respiratory Rate [Left Chest] Blood Pressure 109/50 117/48 113/52 O2 Sat by Pulse 94 95 95 Oximetry 03/13/19 03/13/19 03/13/19 13:30 13:45 14:00 Temperature Pulse Rate 90 108 H 111 H Pulse Rate [ Anterior Throughout] Pulse Rate [ From Monitor] Respiratory 16 19 16 Rate Respiratory Rate [Anterior Throughout] Respiratory Rate [Left Chest] Blood Pressure 113/45 110/52 102/51 O2 Sat by Pulse 93 95 94 Oximetry 03/13/19 03/13/19 03/13/19 14:10 14:15 14:30 Temperature Pulse Rate 117 H 113 H Pulse Rate [ 116 H Anterior Throughout] Pulse Rate [ From Monitor] Respiratory 28 H 35 H Rate Respiratory 35 H Rate [Anterior Throughout] Respiratory Rate [Left Chest] Blood Pressure 95/47 103/47 O2 Sat by Pulse 97 97 Oximetry 03/13/19 03/13/19 03/13/19 14:45 15:00 15:15 Temperature Pulse Rate 112 H 114 H 107 H Pulse Rate [ Anterior Throughout] Pulse Rate [ From Monitor] Respiratory 35 H 28 H 19 Rate Respiratory Rate [Anterior Throughout] Respiratory Rate [Left Chest] Blood Pressure 101/43 97/51 101/50 O2 Sat by Pulse 97 97 97 Oximetry 03/13/19 03/13/19 03/13/19 15:30 15:45 16:00 Temperature 99.7 F H Pulse Rate 113 H 108 H 110 H Pulse Rate [ Anterior Throughout] Pulse Rate [ 113 H From Monitor] Respiratory 35 H 35 H 24 Rate Respiratory Rate [Anterior Throughout] Respiratory Rate [Left Chest] Blood Pressure 93/48 105/50 108/54 O2 Sat by Pulse 97 97 97 Oximetry 03/13/19 03/13/19 03/13/19 16:15 16:30 16:45 Temperature Pulse Rate 113 H 107 H 112 H Pulse Rate [ Anterior Throughout] Pulse Rate [ From Monitor] Respiratory 22 35 H 22 Rate Respiratory Rate [Anterior Throughout] Respiratory Rate [Left Chest] Blood Pressure 103/51 112/61 114/51 O2 Sat by Pulse 97 98 97 Oximetry 03/13/19 03/13/19 03/13/19 17:00 17:06 17:15 Temperature Pulse Rate 114 H 101 H 102 H Pulse Rate [ Anterior Throughout] Pulse Rate [ From Monitor] Respiratory 26 H 15 Rate Respiratory Rate [Anterior Throughout] Respiratory Rate [Left Chest] Blood Pressure 112/50 112/50 127/62 O2 Sat by Pulse 97 95 95 Oximetry 03/13/19 03/13/19 03/13/19 17:30 17:45 18:00 Temperature Pulse Rate 108 H 109 H 108 H Pulse Rate [ Anterior Throughout] Pulse Rate [ From Monitor] Respiratory 15 14 14 Rate Respiratory Rate [Anterior Throughout] Respiratory Rate [Left Chest] Blood Pressure 115/53 114/58 117/59 O2 Sat by Pulse 95 94 Oximetry 03/13/19 03/13/19 03/13/19 18:15 18:30 18:46 Temperature Pulse Rate 115 H 107 H 108 H Pulse Rate [ Anterior Throughout] Pulse Rate [ From Monitor] Respiratory 24 25 H 17 Rate Respiratory Rate [Anterior Throughout] Respiratory Rate [Left Chest] Blood Pressure 113/47 103/52 106/56 O2 Sat by Pulse 83 L 90 92 Oximetry 03/13/19 03/13/19 03/13/19 19:00 19:15 19:30 Temperature Pulse Rate 109 H 108 H 109 H Pulse Rate [ Anterior Throughout] Pulse Rate [ From Monitor] Respiratory 16 16 14 Rate Respiratory Rate [Anterior Throughout] Respiratory Rate [Left Chest] Blood Pressure 106/56 82/38 84/38 O2 Sat by Pulse 91 91 93 Oximetry 03/13/19 03/13/19 03/13/19 19:42 19:45 20:00 Temperature 100 F H Pulse Rate 107 H 109 H Pulse Rate [ 115 H Anterior Throughout] Pulse Rate [ 108 H From Monitor] Respiratory 14 17 Rate Respiratory 37 H Rate [Anterior Throughout] Respiratory Rate [Left Chest] Blood Pressure 84/39 88/41 O2 Sat by Pulse 91 90 Oximetry 03/13/19 03/13/19 03/13/19 20:15 20:30 20:45 Temperature Pulse Rate 104 H 116 H 116 H Pulse Rate [ Anterior Throughout] Pulse Rate [ From Monitor] Respiratory 13 19 34 H Rate Respiratory Rate [Anterior Throughout] Respiratory Rate [Left Chest] Blood Pressure 93/39 89/44 85/49 O2 Sat by Pulse 88 Oximetry 03/13/19 21:00 Temperature Pulse Rate 115 H Pulse Rate [ Anterior Throughout] Pulse Rate [ From Monitor] Respiratory 21 Rate Respiratory Rate [Anterior Throughout] Respiratory Rate [Left Chest] Blood Pressure 110/42 O2 Sat by Pulse 80 L Oximetry - Lab 03/12/19 05:30 03/13/19 11:30 Most recent lab results ABG pH 7.335 pH Units (7.350-7.450) L 03/03/19 05:25 ABG pCO2 61.3 mm Hg 03/03/19 05:25 ABG pO2 89.2 mm Hg (80.0-90.0) 03/03/19 05:25 ABG HCO3 32.0 mmol/L (20.0-26.0) H 03/03/19 05:25 ABG O2 Saturation 97.0 % (95.0-99.0) 03/03/19 05:25 Calcium 8.7 mg/dL (8.4-10.2) 03/13/19 11:30 Phosphorus 3.30 mg/dL (2.5-4.5) D 03/03/19 05:00 Magnesium 2.90 mg/dL (1.7-2.3) H 03/03/19 05:00 Urine Creatinine 185.9 mg/dL (0.1-20.0) H 03/04/19 12:39 Urine Sodium 13 mmol/L 03/04/19 12:39 Medications & Allergies - Medications Allergies/Adverse Reactions: Allergies aspirin Adverse Reaction (Verified 01/28/19 12:25) GI Upset Home Medications: Home Medications Medication Instructions Recorded Confirmed Last Taken Type amLODIPine 5 mg PO DAILY 01/27/19 02/27/19 02/15/19 10:00 History Albuterol Sulfate [Proventil Hfa] 6.7 gm IH Q6H PRN #1 can 02/11/19 02/27/19 02/15/19 15:00 Rx Clindamycin [Clindamycin CAP] 300 mg PO Q8H #21 cap 02/11/19 02/27/19 02/15/19 10:00 Rx oxyCODONE [roxiCODONE] 10 mg PO Q6HR PRN 02/15/19 02/27/19 Unknown History Budesonide/Formoterol Fumarate 2 puff IH BID #1 hfa.aer.ad 02/19/19 02/27/19 Unknown Rx [Symbicort 160-4.5 Mcg Inhaler] HYDROcodone/APAP 10-325 [[place] 1 each PO Q6HR PRN #30 tablet 02/19/19 02/27/19 Unknown Rx 10/325] cephALEXin [Keflex] 500 mg PO Q6HR #40 capsule 02/19/19 02/27/19 Unknown Rx Active Medications: Generic Name Dose Route Start Last Admin Trade Name Freq PRN Reason Stop Dose Admin Acetaminophen 650 mg 03/02/19 13:46 03/02/19 15:38 Tylenol PO 650 mg Q6H PRN Administration Fever >101 Albuterol 2.5 mg 02/27/19 21:08 02/28/19 12:35 Proventil IH 2.5 mg Q4HRT PRN Administration Shortness Of Breath Albuterol/Ipratropium 1 ampul 02/28/19 08:00 03/13/19 20:19 Duoneb *Not For Prn Use* IH 1 ampul TIDRT MANISH Administration Lipase/Protease/Amylase 1 each 03/03/19 08:[address] 10,500 Unit FEEDTUBE PRN PRN For Clogged Feeding Tube Enoxaparin Sodium 30 mg 03/04/19 10:00 03/13/19 10:56 Enoxaparin SUB-Q 30 mg QDAY MANISH Administration Famotidine 20 mg 03/10/19 10:00 03/13/19 10:56 Pepcid IV 20 mg QDAY MANISH Administration Hydrophilic Ointment 1 applic 03/02/19 04:40 Vaseline Lip Therapy TP Q2HR PRN Dry Lips Norepinephrine 4 mg in 250 mls @ 7.5 mls/hr 03/02/19 05:00 03/13/19 20:30 Levophed Drip 4 Mg/Ns 250 Ml IV 16 mcg/min TITR MANISH 60 mls/hr Titration Protocol 2 MCG/MIN Vasopressin 20 unit/ Sodium 101 mls @ 9.09 mls/hr 03/02/19 05:00 03/13/19 20:19 Chloride IV 0.03 units/min TITR MANISH 9.09 mls/hr Administration Protocol 0.03 UNITS/MIN Fentanyl Citrate 2,000 mcg in 100 mls @ 4.64 mls/hr 03/02/19 17:00 03/13/19 18:39 Fentanyl Drip Premix IV 2 mcg/kg/hr TITR MANISH 9.28 mls/hr Administration Protocol 1 MCG/KG/HR Propofol 1,000 mg in 100 mls @ 2.844 mls/hr 03/06/19 13:00 03/13/19 17:09 Diprivan 10 Mg/Ml IV 0 mcg/kg/min TITR MANISH 0 mls/hr Titration Protocol 5 MCG/KG/MIN Sodium Chloride 100 mls @ 999 mls/hr 03/09/19 07:55 Nacl 0.9% IV CUAUHTEMOC PRN Hypotension Insulin Human Lispro 0 unit 03/04/19 13:00 03/13/19 18:38 Humalog SUB-Q 3 unit Q6HR MANISH Administration Protocol Lactulose 20 gm 03/13/19 11:00 03/13/19 10:55 Cephulac PO 20 gm Q24HR MANISH Administration Methylprednisolone Sodium Succinate 40 mg 03/11/19 22:00 03/13/19 10:55 Solu-Medrol IV 40 mg Q12HR MANISH Administration Multi-Ingred Cream/Lotion/Oil/Oint 1 applic 03/02/19 16:43 Artificial Tears Ophth Oint OU Q4HR PRN Dry Eye(s) Simple Syrup 15 ml 03/03/19 08:54 Simple Syrup FEEDTUBE PRN PRN Hypoglycemia Simple Syrup 30 ml 03/03/19 08:54 Simple Syrup FEEDTUBE PRN PRN Hypoglycemia Sodium Bicarbonate 325 mg 03/03/19 08:54 Sodium Bicarbonate FEEDTUBE PRN PRN For Clogged Feeding Tube
[2019-03-14] MEDS: INSULIN LISPRO 100 UNIT/ML SUB-Q SCH ×2 (00:36→06:11)
[2019-03-14] MEDS: NORepinephrine/NS 4 MG-250 ML 4 MG/250 ML BAG IV SCH ×3 (01:19→06:29)
[2019-03-14] MEDS: fentaNYL DRIP Premix 2,000 MCG/100 ML BAG IV SCH (04:05)
[2019-03-14] MEDS ORDERED: SODIUM BICARB 8.4% 50 MEQ/50 ML SYRINGE IV ONE ×2 (05:20→09:34)
[2019-03-14 06:11] LABS: Calcium 8.4 mg/dL (8.4-10.2)
[2019-03-14] MEDS ORDERED: PHENYLEPHRINE 100 MG in SODIUM CHLORIDE 0.9% 90 ML IV SCH (06:30)
[2019-03-14] MEDS ORDERED: SODIUM BICARBONATE 150 MEQ in DEXTROSE 5% IN WATER 1,000 ML IV SCH (07:00)
[2019-03-14] MEDS ORDERED: NORepinephrine 8 MG in SODIUM CHLORIDE 0.9% 250ML 242 ML IV SCH (07:00)
[2019-03-14] MEDS ORDERED: SODIUM POLYSTYRENE 15 GM/60 ML ORAL LIQD PO NR (07:36)
[2019-03-14] MEDS ORDERED: CALCIUM GLUCONATE 1,000 MG in SODIUM CHLORIDE 0.9% 100 ML IV ONE (07:37)
[2019-03-14] MEDS ORDERED: INSULIN REGULAR, HUMAN 100 UNITS/1 ML IV NR (07:38)
[2019-03-14] MEDS ORDERED: DEXTROSE 50% IN WATER (25GM) 50 ML SYRINGE IV NR (07:39)
[2019-03-14] MEDS: VASOPRESSIN 20 UNIT in SODIUM CHLORIDE 0.9% 100 ML IV SCH (08:19)
[2019-03-14] MEDS: IPRATROPIUM/ALBUTEROL SULFATE 3 ML AMPUL.NEB IH SCH ×2 (08:38→14:20)
[2019-03-14] MEDS ORDERED: DEXTROSE 50% IN WATER (25GM) 50 ML SYRINGE IV ONE (09:34)
[2019-03-14] MEDS ORDERED: EPINEPHrine 1:10,000 1 MG/10 ML SYRINGE ONE (09:34)
--- NOTE | 2019-03-14 10:18 | Event Note ---
Date: 03/14/19 Cardiopulmoanry arrest s/p resuscitation per ACLS protocol fro 20 minutes. No ROSC at the bedside. Stopped all resuscitative measures.
--- NOTE | 2019-03-14 10:23 | Event Note ---
Date: 03/14/19 Closest Hospitalist when Makenzie Demetrius was called; so I assisted to try and save Mrs. Alejo's life. When I arrived, patient was already intubated and Dr. Love and Christian Cummings were running the code/ACLS. Then patient's (I believe) collapsed outside of the room and Dr. Zambrano went to assist and asked me to help run the Code while she see about the . Patient pupils were already fixed and dilated when I arrived, she had bright red blood from the ET tube. She was being shocked when I entered the room. Prior to this, I have not had any involvement with patient's care this admission, I did not even know patient's name prior to today. I did notify patient's attending, Dr. Odom, during the code. Unfortunately, patient at 0951 am. I pronounced the patient after exam. Her eyes with fixed and dilated, no breath sounds, no heart tones, asytole on monitor. time of 0951
--- NOTE | 2019-03-14 10:30 | Death Summary ---
Summary - Providers Date of service: 03/14/19 Consults: 02/28/19 06:31 Consult to Physician [CONS] Routine Comment: Consulting Provider: MALLIKA SELF Physician Instructions: Reason For Exam: Breast cancer 02/28/19 07:15 Consult to Wound/ET Nurse [CONS] Routine Reason For Exam: wound eval, left breast 02/28/19 08:42 Consult to Physician [CONS] Routine Comment: Consulting Provider: GWEN WILKINSON Physician Instructions: Reason For Exam: acute on chronic resp failure, 02/28/19 08:48 Consult to Physician [CONS] Routine Comment: Consulting Provider: MECHELLE FOREMAN Physician Instructions: Reason For Exam: Bilateral pneumonia, poss sepsis 02/28/19 10:40 Consult to Interventional Radiology [CONS] Urgent Consulting Provider: EDITH TOVAR Reason For Exam: insert a pleurx drain or pleural drain Place consult to:: [place] Notified:: yes Phone number called:: [phone] Was contact made?: Yes Time called:: 10:45 03/02/19 04:40 Consult to Dietitian/Nutrition [CONS] Routine Physician Instructions: Reason For Exam: Reason for Consult: Evaluate nutritional intake 03/02/19 16:43 Consult to Dietitian/Nutrition [CONS] Routine Physician Instructions: Reason For Exam: Reason for Consult: Evaluate nutritional intake Consult to Dietitian/Nutrition [CONS] Routine Physician Instructions: Reason For Exam: Reason for Consult: Write/Manage Tube Feeding 03/04/19 10:38 Consult to Physician [CONS] Urgent Comment: Consulting Provider: ISADORA PAINTING Physician Instructions: Reason For Exam: SELAM 03/08/19 12:35 Consult to Interventional Radiology [CONS] Stat Consulting Provider: EDITH TOVAR Reason For Exam: Vascath for emergent HD-Anuric, Hyperkalemia, Place consult to:: Dr. Tovar Notified:: by ICU charge nurse Attending: SERENITY COOK - summary Date of admission: 02/27/19 14:46 Significant findings: - Acute respiratory failure with hypoxia. Intubated and on MVS 03/01/19 Pulmonary following AC and PC with FIO2 of 80 percent - Sepsis with shock. Continue per ID recommendation. Continue IV Meropenem, - Acute kidney injury. Etiology likely secondary to prerenal injury/ATN from sepsis/ARDS. Nephrology reports that patient would not be an ideal candidate for renal replacement initiation considering her other underlying comorbidities, especially metastatic breast cancer - Hyperkalemia. Etiology secondary to above. Patient received D50, IV insulin, bicarb IVP, IV lasix 80mg once. Also, nephrology initiated bicarb gtt at 50ml/hr. if hyperkalemia is refractory to medical treatment will need to discuss renal replacement therapy with family, however pt with overall poor prognosis and would not be an ideal candidate for intermediate HD. - Bilateral pneumonia Throacentesis culture 02/28/19 - no growth, no orgs on gram stain. 03/02/2019 sputum: gianfranco albicans ID following - Recurrent malignant pleural effusion s/p thoracentesis - Left breast cancer with mets to the bones and liver s/p surgery Dr. Self following Local Wound care. -Heart failure Echocardiogram revealed left ventricular size normal with no pericardial effusion Shock liver -Elevated LFTs and alkaline phosphatase. Right upper quadrant ultrasound pending - Hyperammonemia Cont lactulose as needed - Hypernatrmia Free water via [place] - Hypertension Monitor BP - ELevated D- dimer CT angio was negative for PE - Poor prognosis. Needs Hospice - Final diagnosis (1) Acute respiratory failure with hypoxia Note: Final diagnosis: (2) Septic shock Note: Final diagnosis: (3) Bilateral pneumonia Note: Final diagnosis: (4) Metastatic breast cancer Note: Final diagnosis:
[2019-03-14 15:04] VITALS: BP 51/23
== END 2019-03-14 13:00 | DRG 870 ==
LOC: ED 11:02 → CC1 14:46
PROVIDERS: ADMIT Internal Medicine; ATTEND Internal Medicine
PROC: 02H633Z Insertion of Infusion Device into Right Atrium, Percutaneous Approach (ICD-10-PCS; 2019-02-27)
PROC: 4A033R1 Measurement of Arterial Saturation, Peripheral, Percutaneous Approach (ICD-10-PCS; 2019-02-27)
PROC: 5A09357 Assistance with Respiratory Ventilation, Less than 24 Consecutive Hours, Continuous Positive Airway Pressure (ICD-10-PCS; 2019-02-27)
PROC: 0W993ZZ Drainage of Right Pleural Cavity, Percutaneous Approach (ICD-10-PCS; 2019-02-28)
PROC: 5A09357 Assistance with Respiratory Ventilation, Less than 24 Consecutive Hours, Continuous Positive Airway Pressure (ICD-10-PCS; 2019-02-28)
PROC: 5A09357 Assistance with Respiratory Ventilation, Less than 24 Consecutive Hours, Continuous Positive Airway Pressure (ICD-10-PCS; 2019-03-01)
PROC: 5A1955Z Respiratory Ventilation, Greater than 96 Consecutive Hours (ICD-10-PCS; principal; 2019-03-02)
PROC: 0BH18EZ Insertion of Endotracheal Airway into Trachea, Via Natural or Artificial Opening Endoscopic (ICD-10-PCS; 2019-03-02)
PROC: 5A09357 Assistance with Respiratory Ventilation, Less than 24 Consecutive Hours, Continuous Positive Airway Pressure (ICD-10-PCS; 2019-03-02)
PROC: 5A1D70Z Performance of Urinary Filtration, Intermittent, Less than 6 Hours Per Day (ICD-10-PCS; 2019-03-08)
PROC: 06HY33Z Insertion of Infusion Device into Lower Vein, Percutaneous Approach (ICD-10-PCS; 2019-03-08)
PROC: B54BZZA Ultrasonography of Right Lower Extremity Veins, Guidance (ICD-10-PCS; 2019-03-08)
PROC: 5A1D70Z Performance of Urinary Filtration, Intermittent, Less than 6 Hours Per Day (ICD-10-PCS; 2019-03-09)
PROC: 5A1D70Z Performance of Urinary Filtration, Intermittent, Less than 6 Hours Per Day (ICD-10-PCS; 2019-03-10)
DX: A41.9 Sepsis, unspecified organism (principal); E87.0 Hyperosmolality and hypernatremia; C50.912 Malignant neoplasm of unspecified site of left female breast; E66.9 Obesity, unspecified; C78.7 Secondary malignant neoplasm of liver and intrahepatic bile duct; D64.9 Anemia, unspecified; C78.02 Secondary malignant neoplasm of left lung; C78.01 Secondary malignant neoplasm of right lung; R65.21 Severe sepsis with septic shock; I13.2 Hypertensive heart and chronic kidney disease with heart failure and with stage 5 chronic kidney disease, or end stage renal disease; J69.0 Pneumonitis due to inhalation of food and vomit; K72.00 Acute and subacute hepatic failure without coma; I50.9 Heart failure, unspecified; N18.6 End stage renal disease; C79.51 Secondary malignant neoplasm of bone; E87.5 Hyperkalemia; E72.20 Disorder of urea cycle metabolism, unspecified; J96.21 Acute and chronic respiratory failure with hypoxia; J96.22 Acute and chronic respiratory failure with hypercapnia; Z90.12 Acquired absence of left breast and nipple; Z82.49 Family history of ischemic heart disease and other diseases of the circulatory system; Z88.8 Allergy status to other drugs, medicaments and biological substances; Z79.899 Other long term (current) drug therapy; Z79.51 Long term (current) use of inhaled steroids; Z91.19 Patient's noncompliance with other medical treatment and regimen; Z68.41 Body mass index [BMI] 40.0-44.9, adult; Z87.442 Personal history of urinary calculi; I46.9 Cardiac arrest, cause unspecified; N17.0 Acute kidney failure with tubular necrosis
CPT/HCPCS: 32555; 36415; 36600; 70450; 71045; 71275; 74018; 76705; 76770; 80048; 80053; 80074; 80076; 81001; 82140; 82436; 82550; 82553; 82570; 82803; 82962; 83735; 83880; 84100; 84145; 84300; 84439; 84443; 84478; 84484; 85007; 85025; 85027; 85379; 85610; 85730; 86021; 86160; 86850; 86900; 86901; 86920; 87040; 87070; 87086; 87116; 87205; 88112; 88305; 93005; 93010; 93308; 93321; 93325; 93970; 94002; 94003; 94640; 94660; 94760; 96360; 99292; G0378; J0171; J0610; J0692; J1170; J1650; J1815; J1940; J2060; J2185; J2370; J2704; J2765; J2920; J2930; J3010; J3370; J7030; J7040; J7050; J7070; Q9967